=== PATIENT | male | born 1950 | race Caucasian/White ===

== ENCOUNTER → 2019-11-27 18:24 | Outpatient (CLI) | payer MEDICARE, OTHER, SELFPAY ==
[2019-11-27 19:47] LABS: Basophils # 0.1 K/mm3 (0-0.2); Basophils % 0.5 % (0.1-2.0); Eosinophils # 0.1 K/mm3 (0.0-0.4); Eosinophils % 1.2 % (0.1-12.0); Hematocrit 46.1 % (42.0-52.0); Hemoglobin 15.2 g/dL (14.1-18.0); Lymphocytes # 1.7 K/mm3 (0.7-4.5); Lymphocytes % 16.5 % (10-50); Mean Corpuscular HGB Conc 32.9 g/dL (31.8-35.4); Mean Corpuscular Hemoglobin 31.2 pg (27.0-31.2); Mean Corpuscular Volume 94.9 fl (80-94); Mean Platelet Volume 8.9 fl (7.4-10.4); Monocytes # 0.4 K/mm3 (0.1-1.0); Monocytes % 3.9 % (1.7-9.3); Neutrophils # 7.9 K/mm3 (1.8-7.8); Neutrophils % 77.9 % (37.0-80.0); Platelet Count 182 K/mm3 (142-424); Red Blood Count 4.85 M/mm3 (4.60-6.20); Red Cell Distribution Width 15.3 % (11.5-17.5); White Blood Count 10.1 K/mm3 (4.8-10.8)
[2019-11-27 19:56] LABS: Alanine Aminotransferase 20 U/L (12-78); Albumin Level 4.7 g/dl (3.5-5.0); Albumin/Globulin Ratio 1.4 (1.1-1.8); Alkaline Phosphatase 136 U/L (38-126); Anion Gap 12.5 mEq/L (5-15); Aspartate Amino Transferase 30 U/L (17-59); Bilirubin,Total 0.8 mg/dl (0.2-1.3); Blood Urea Nitrogen 15 mg/dl (9-20); Calcium 10.8 mg/dl (8.4-10.2); Carbon Dioxide 27 mmol/L (22.0-30.0); Chloride 106 mmol/L (98-107); Estimated Glomerular Filt Rate 60 ml/min (>60); GFR (African American) 73 ML/MIN (>60); Globulin 3.3 g/dL (1.3-3.2); Glucose 100 mg/dl (74-100); Potassium 4.5 mmoL/L (3.5-5.1); Sodium 141 mmol/L (136-145)
== END ==
PROVIDERS: Visit Provider Family Medicine
DX: K57.30 Diverticulosis of large intestine without perforation or abscess without bleeding (principal)
CPT/HCPCS: 80053; 85025

== ENCOUNTER → 2019-12-10 13:26 | Outpatient (CLI) | payer MEDICARE, OTHER, SELFPAY ==
--- NOTE | 2019-12-10 13:36 | CT_ITS ---
PROCEDURE: CT ABDOMEN PELVIS WO CON CLINICAL INDICATION: BLOATING BLOODY STOOLS COMPARISON: No exams were available for comparison TECHNIQUE: Axial images obtained with sagittal and coronal reformats. All CT scans at the facility use one or more dose reduction, viz: automated exposure control, ma/kV adjustment per patient size (including targeted exams where dose is matched to indication, i.e. head), or iterative reconstruction technique. FINDINGS: LOWER THORAX: Blebs are present in the lung bases with COPD and centrilobular emphysema. There is a mitral valve prosthesis present. ABDOMEN & PELVIS: Mild nonspecific thickening of the distal esophagus and GE junction. The liver, spleen, adrenal glands, pancreas, and kidneys show no acute finding. There is an exophytic cyst along the lower pole of the right kidney at 1.6 cm. No renal or ureteral calculi. There is bowel interposition between the liver and abdominal wall on the right. There has been a prior hemicolectomy with anastomosis in the right lower quadrant. The remaining sigmoid colon and rectum have an unremarkable appearance. No abdominal or pelvic mass or abnormal fluid collection apparent. There are some mildly prominent small bowel loops containing air with a few air-fluid levels. These are nonspecific. No acute bony findings are evident. IMPRESSION: Prior hemicolectomy. The bowel gas pattern is nonspecific with some mildly prominent air in fluid-filled loops of small bowel. Ileus enteritis or even partial obstruction is a consideration. CT enterography or small-bowel follow-through may provide further evaluation. Multiple unopacified bowel loops in the abdomen or pelvis which could obscure or mimic pathology. If symptoms persist, consider repeat exam with IV and oral contrast. Other nonspecific findings as detailed above Dictated by: Ronnell Gentile MD 12/11/2019 10:14 Ronnell Gentile MD in [place] 12/11/2019 10:14
== END ==
PROVIDERS: PCP Family Medicine; Visit Provider Family Medicine
DX: K92.1 Melena (principal)
CPT/HCPCS: 74176

== ENCOUNTER → 2020-02-17 07:56 | Outpatient (CLI) | payer MEDICARE, OTHER, SELFPAY ==
--- NOTE | 2020-02-17 07:57 | CT_ITS ---
PROCEDURE: CT ABDOMEN PELVIS W CON CLINICAL INDICATION: abd pain rectal bleeding bright red,,hx of colon surg [id number] for diverticulitis COMPARISON: CT CT ABDOMEN PELVIS WO CON from 12/10/2019 TECHNIQUE: IV Contrast: 75ML Isovue 370 Oral Contrast None Axial images obtained with sagittal and coronal reformats. All CT scans at the facility use one or more dose reduction, viz: automated exposure control, ma/kV adjustment per patient size (including targeted exams where dose is matched to indication, i.e. head), or iterative reconstruction technique. FINDINGS: LOWER THORAX: Paraseptal emphysematous changes are present with subpleural blebs as well central blebs in both lower lobes. There are scattered areas of scarring. Subpleural parenchymal opacity is present in the right lower lobe laterally not significantly changed. Mitral valve prosthesis is present. ABDOMEN & PELVIS: There is a small hiatal hernia. There is a subcapsular hypodensity in the right hepatic lobe at 4 mm nonspecific. There is nodular thickening involving the medial aspect of the gallbladder. This area of thickening measures approximately 14 x 5 mm. Gallbladder ultrasound suggested for further evaluation. The spleen, adrenal glands, pancreas, have an unremarkable appearance. No renal or ureteral calculi. A small cortical cyst is present along the lower pole of the right kidney and along the upper pole of the left kidney. There are few small retroperitoneal lymph nodes which are nonspecific. No intestinal obstruction or free air is evident. There has been a partial colectomy with sigmoid colon remaining. The entero colic anastomosis is patent in the right lower quadrant. No abdominal or pelvic mass or adenopathy is apparent. No evidence of diverticulitis. There is a least 1 sigmoid diverticulum. There are old bilateral rib fractures and there are degenerative changes in the thoracic and lumbar spine IMPRESSION: 1. Status post subtotal colectomy with sigmoid colon remaining with a least 1 sigmoid diverticula but no evidence of diverticulitis. 2. Nodular thickening of the medial aspect of the gallbladder. Consider ultrasound for further evaluation. 3. Other nonacute findings as described above. Dictated by: Ronnell Gentile MD 02/20/2020 06:05 Ronnell Gentile MD in [facility] 02/20/2020 06:05
== END ==
PROVIDERS: PCP Family Medicine; Visit Provider Family Medicine
DX: K62.5 Hemorrhage of anus and rectum (principal); Z87.19 Personal history of other diseases of the digestive system
CPT/HCPCS: 74177; Q9967

== ENCOUNTER → 2020-02-27 07:37 | Outpatient (CLI) | payer MEDICARE, OTHER, SELFPAY ==
--- NOTE | 2020-02-27 07:37 | US_ITS ---
PROCEDURE: US GALLBLADDER CLINICAL INDICATION: abnormal GB on CT Nodular thickening of the gallbladder on CT scan. Ultrasound suggested. COMPARISON: CT CT ABDOMEN PELVIS W CON from 02/17/2020 FINDINGS: Pancreas: Unremarkable/Not well seen Liver: Unremarkable. There is appropriate direction of blood flow within a non dilated portal vein. Right kidney: Unremarkable appearing. No hydronephrosis. Gallbladder: There is heterogeneous nodular echogenicity along the lateral aspect of the gallbladder wall corresponding to the abnormality noted on the CT scan. This area measures 1.9 by 1 cm. The remaining gallbladder has an unremarkable appearance. The gallbladder is small. No biliary dilatation. Common bile duct is normal at 4 mm. No gallstones are apparent. Cannot completely separate this from the liver at least in 1 spot. IMPRESSION: Heterogeneous nodularity along the lateral aspect of the gallbladder wall. This could be inflammatory or neoplastic. Gallbladder carcinoma is a consideration. MRI of the liver and gallbladder without and with contrast with MRCP may be of further value. Dictated by: Ronnell Gentile MD 02/27/2020 10:00 Ronnell Gentile MD in [facility] 02/27/2020 10:00
== END ==
PROVIDERS: PCP Family Medicine; Visit Provider Family Medicine
DX: R93.2 Abnormal findings on diagnostic imaging of liver and biliary tract (principal)
CPT/HCPCS: 76705

== ENCOUNTER → 2020-03-17 12:50 | Outpatient (CLI) | payer MEDICARE, OTHER, SELFPAY ==
[2020-03-17 14:21] LABS: Blood Urea Nitrogen 22 mg/dl (9-20); Estimated Glomerular Filt Rate 60 ml/min (>60); GFR (African American) 73 ML/MIN (>60)
== END ==
PROVIDERS: Visit Provider Surgery
DX: R93.2 Abnormal findings on diagnostic imaging of liver and biliary tract (principal)
CPT/HCPCS: 36415; 82565; 84520

== ENCOUNTER → 2020-03-24 08:24 | Outpatient (CLI) | payer MEDICARE, OTHER, SELFPAY ==
--- NOTE | 2020-03-24 08:24 | MR_ITS ---
PROCEDURE: MR ABDOMEN WO/W CON CLINICAL INDICATION: MRCP for Gallbladder Gallbladder lesion, abdominal pain COMPARISON: CT CT ABDOMEN PELVIS W CON from 02/17/2020 US US GALLBLADDER from 02/27/2020 TECHNIQUE: Routine multiplanar multi echo sequences are performed without and with gadolinium enhancement. FINDINGS: There is a small cyst right hepatic lobe posteriorly segment 7. There is a mild degree of motion artifact present which does obscure fine detail of the abdomen. The spleen, adrenal glands, and pancreas have an unremarkable appearance. There are bilateral renal cysts.. MRCP: No biliary dilatation apparent. No obvious common duct stones. There is considerable amount of motion artifact. The gallbladder is not well delineated on the MRCP images. There remains some focal thickening of the gallbladder wall laterally as described on the CT scan and the gallbladder ultrasound. This is better demonstrated on the CT scan and secondary to the motion artifact noted on the MRI. The tissue/liver around the gallbladder has an unremarkable appearance. IMPRESSION: 1. Persistent gallbladder wall thickening laterally. 2. Unremarkable biliary tree with no other significant anomalies evident. Dictated by: Ronnell Gentile MD 03/29/2020 12:04 Ronnell Gentile MD in [facility] 03/29/2020 12:04
== END ==
PROVIDERS: PCP Family Medicine; Visit Provider Surgery
DX: R93.2 Abnormal findings on diagnostic imaging of liver and biliary tract (principal); K76.89 Other specified diseases of liver
CPT/HCPCS: 74183; 76376; A9576

== ENCOUNTER → 2021-02-07 15:54 | Outpatient (CLI) | payer MEDICARE, OTHER, SELFPAY ==
--- NOTE | 2021-02-07 15:59 | XR_ITS ---
PROCEDURE: XR KNEE LT 4V CLINICAL INDICATION: arthritis knee COMPARISON: No exams were available for comparison FINDINGS: Minimal osteoarthritic changes are present involving the medial compartment and patellofemoral joint. No fracture or dislocation Other findings:None. IMPRESSION: Minimal osteoarthritic change medial compartment and patellofemoral joint Dictated by: Ronnell Gentile MD 02/07/2021 17:26 Ronnell Gentile MD in [place] 02/07/2021 17:26
== END ==
PROVIDERS: PCP Family Medicine; Visit Provider Family Medicine
DX: M25.562 Pain in left knee (principal)
CPT/HCPCS: 73564

== ENCOUNTER → 2022-01-24 09:04 | Outpatient (CLI) | payer MEDICARE, OTHER, SELFPAY ==
--- NOTE | 2022-01-24 09:27 | XR_ITS ---
FINAL REPORT CLINICAL HISTORY: bilateral hip pain FINDINGS: HIP BILATERAL MIN 2VS EACH HIP Five views were obtained. There is no acute fracture or dislocation. There are mild degenerative changes of the hips bilaterally. The femoral heads demonstrate a small normal smooth contour. No soft tissue abnormality is identified. IMPRESSION: Mild degenerative changes bilaterally. Reviewed, Interpreted and Dictated by Joey Miller MD Transcribed by Ruth Ann Desir Authenticated and [facility]
== END ==
PROVIDERS: PCP Family Medicine; Visit Provider Family Medicine
DX: Z95.1 Presence of aortocoronary bypass graft (principal); M25.552 Pain in left hip; M25.551 Pain in right hip
CPT/HCPCS: 73521

== ENCOUNTER 2022-06-19 22:50 | Emergency (ER) | payer MEDICARE, OTHER, SELFPAY ==
[2022-06-19 22:50] VITALS: BP 121/63; PULSE 81; RESP 16; TEMP 36.8; O2SAT 96; BMI 33.9
[2022-06-19 23:01] VITALS: BP 99/50; PULSE 81; O2SAT 95
[2022-06-19 23:28] LABS: Basophils % 0.2 % (0.1-2.0); Eosinophils # 0.1 K/mm3 (0.0-0.4); Eosinophils % 0.5 % (0.1-12.0); Hematocrit 39.6 % (42.0-52.0); Hemoglobin 12.3 g/dL (14.1-18.0); Lymphocytes # 0.9 K/mm3 (0.7-4.5); Lymphocytes % 8.2 % (10-50); Mean Corpuscular HGB Conc 31.1 g/dL (31.8-35.4); Mean Corpuscular Hemoglobin 28.6 pg (27.0-31.2); Mean Corpuscular Volume 92.1 fl (80-94); Mean Platelet Volume 8.7 fl (7.4-10.4); Monocytes # 0.7 K/mm3 (0.1-1.0); Monocytes % 6.5 % (1.7-9.3); Neutrophils # 9.1 K/mm3 (1.8-7.8); Neutrophils % 84.8 % (37.0-80.0); Platelet Count 276 K/mm3 (142-424); Red Cell Distribution Width 14.1 % (11.5-17.5); White Blood Count 10.7 K/mm3 (4.8-10.8)
[2022-06-19 23:30] VITALS: BP 98/46; PULSE 79; O2SAT 93
[2022-06-19 23:30] LABS: Chloride 103 mmol/L (98-107)
[2022-06-19 23:31] LABS: Potassium 4.2 mmoL/L (3.5-5.1); Sodium 136 mmol/L (136-145)
--- NOTE | 2022-06-19 23:32 | PC.NURSE ---
during assessment of patient it was noted that pt had a clot approx the size of the left nostril from what I could visualize of it. Notified
[2022-06-19 23:33] LABS: Alanine Aminotransferase 26 U/L (12-78); Aspartate Amino Transferase 18 U/L (17-59); Bilirubin,Total 0.5 mg/dl (0.2-1.3); Creatinine Clearance Estimated 24 mL/min (50-200); Estimated Glomerular Filt Rate 13 ml/min (>60); GFR (African American) 15 ML/MIN (>60)
[2022-06-19 23:34] LABS: Albumin Level 3.4 g/dl (3.5-5.0); Albumin/Globulin Ratio 1.1 (1.1-1.8); Alkaline Phosphatase 100 U/L (38-126); Anion Gap 20.2 mEq/L (5-15); Carbon Dioxide 17 mmol/L (22.0-30.0); Globulin 3.2 g/dL (1.3-3.2); Glucose 101 mg/dl (74-100); Total Protein,Serum 6.6 g/dl (6.3-8.2)
[2022-06-19 23:45] VITALS: BP 81/46; PULSE 85; O2SAT 95
--- NOTE | 2022-06-19 23:50 | PC.NURSE ---
Dr. Daniel notified of critical BUN, creatiine, and GFR.
[2022-06-19 23:51] LABS: Blood Urea Nitrogen 157 mg/dl (9-20)
[2022-06-20] VITALS (11 sets, daily range): BP systolic 90–127; BP diastolic 49–68; PULSE 60–98; RESP 16; TEMP 36.8; O2SAT 90–98
--- NOTE | 2022-06-20 00:01 | CT_ITS ---
PROCEDURE INFORMATION: Exam: CT Abdomen And Pelvis Without Contrast Exam date and time: 06/20/2022 12:25 AM Age: 71 years old Clinical indication: Abnormal findings; Abnormal lab test; Abnormal kidney function lab tests; Additional info: Abnormal labs TECHNIQUE: Imaging protocol: Computed tomography of the abdomen and pelvis without contrast. Radiation optimization: All CT scans at this facility use at least one of these dose optimization techniques: automated exposure control; mA and/or kV adjustment per patient size (includes targeted exams where dose is matched to clinical indication); or iterative reconstruction. REPORTING DATA: Count of CT and Cardiac NM exams in prior 12 months: This patient has received 0 known CTs and 0 known cardiac nuclear medicine studies in the 12 months prior to the current study. COMPARISON: MR ABDOMEN WO/W CON 03/24/2020 8:47 AM FINDINGS: Lungs: Emphysema with lower lobe bronchiectasis and presumed scarring in the lingula and right lower lobe similar to CT 02/17/2020. Heart: Mitral valve replacement. Diaphragm: Small-sized hiatal hernia is unchanged. Liver: Normal. No mass. Gallbladder and bile ducts: Gallbladder again appears thickened with partially contracted appearance. Pancreas: Normal. No ductal dilation. Spleen: Splenic granulomata are unchanged. Adrenal glands: Normal. No mass. Kidneys and ureters: Anterior right lower pole simple renal cyst measuring 2 cm is unchanged. No hydronephrosis or stone. Stomach and bowel: Surgical changes are seen in right lower quadrant small bowel loops. No bowel obstruction. Appendix: No evidence of appendicitis. Intraperitoneal space: Unremarkable. No free air. No significant fluid collection. Vasculature: Unremarkable. No abdominal aortic aneurysm. Lymph nodes: Unremarkable. No enlarged lymph nodes. Urinary bladder: The bladder wall is thickened with incomplete distention. Reproductive: Unremarkable as visualized. Bones/joints: Unremarkable. No acute fracture. Soft tissues: Unremarkable. IMPRESSION: 1. No renal stone or hydronephrosis. 2. Thickened bladder wall. Correlate for cystitis. 3. Contracted appearance of the gallbladder with wall thickening similar to previous imaging.
--- NOTE | 2022-06-20 00:02 | PC.NURSE ---
Dr. Daniel at bedside
--- NOTE | 2022-06-20 00:15 | PC.NURSE ---
Dr. Daniel removed clot from nose, bleeding started again, nose was suctioned and cleaned, afrin sprayed and suctioned again. Dr. Daniel then used cotton ball soaked in cocaine and placed in left nostril. No issues during this.
--- NOTE | 2022-06-20 00:17 | PC.NURSE ---
Pt over to CT, updated son on POC and explained why were obtaining CT scan.
--- NOTE | 2022-06-20 00:27 | [facility].EDEPIS ---
Discharge Plan Disposition Patient Disposition: Xfer Short-Term Hosp Chief Complaint: Epistaxis Prescriptions Prescriptions: No Action aspirin [Adult Aspirin Regimen] 81 mg tablet,delayed release (DR/EC) 81 mg PO DAILY amlodipine 5 mg Tablet 5 mg PO DAILY furosemide 40 mg tablet See Rx Instructions .ROUTE .COMPLEX Rx Instructions: TAKE 1 TABLET BY MOUTH ONCE DAILY NEEDED UNTIL EDEMA RESOLVES, THEN ONLY NEEDED carvedilol 25 mg tablet See Rx Instructions .ROUTE .COMPLEX Rx Instructions: TAKE 1 TABLET BY MOUTH TWICE DAILY. MUST TAKE WITH MEAL/FOOD. atorvastatin 20 mg tablet See Rx Instructions .ROUTE .COMPLEX Rx Instructions: Take 1 tablet by mouth daily lisinopril 20 mg tablet See Rx Instructions .ROUTE .COMPLEX Rx Instructions: Take 1 tablet by mouth twice daily hydralazine 50 mg tablet See Rx Instructions .ROUTE .COMPLEX Rx Instructions: TAKE 1 TABLET BY MOUTH THREE TIMES DAILY Referrals Follow up/Referrals: Martinez Canseco MD [Primary Care Provider] - See instructions Clinical Impressions Clinical Impression: Hemorrhage of nose, Acute renal failure (ARF) Stand Alone Forms Stand Alone Forms: Transfer Record - ED Instructions Patient Instructions: DI for Nosebleed Discharge ED Provider: María (ED)Ernesto Epistaxis HPI General Chief complaint: Epistaxis Stated complaint: Nose bleed Time Seen by Provider: 06/20/22 00:27 Mode of Arrival: EMS Source of Information: Patient, Relative, EMS and Medical Record Limitations: No Limitations Description of Symptoms (Recalled from ER Triage Doc. by RN): Pt advises his nose started bleeding around 9pm and they were unable to get the bleeding to stop. Mostly bleeding from the left nostril, denies any other symptoms, and advises he does not get nose bleeds. No hx of blood thinner only baby ASA History of Present Illness HPI Narrative: pt with nasal bleeding lt nares tonight at about 2100 - no hx of trauma and on asa complaint: epistaxis Location: left nostril Onset (ago): hour(s) Duration: constant Context: aspirin use Associated symptoms: fever and headache Treatment prior to arrival: nose pinching and head leaned forward Related Data Home Medications Medication Instructions Recorded Confirmed aspirin 81 mg tablet,delayed 81 mg PO DAILY Blood thinner 11/27/19 06/19/22 release (Adult Aspirin Regimen) amlodipine 5 mg tablet 5 mg PO DAILY blood pressure 06/19/22 06/19/22 atorvastatin 20 mg tablet See Rx Instructions .Route 06/19/22 06/19/22 .COMPLEX Cholesterol carvedilol 25 mg tablet See Rx Instructions .Route 06/19/22 06/19/22 .COMPLEX beta kye furosemide 40 mg tablet See Rx Instructions .Route 06/19/22 06/19/22 .COMPLEX Fluid hydralazine 50 mg tablet See Rx Instructions .Route 06/19/22 06/19/22 .COMPLEX blood pressure lisinopril 20 mg tablet See Rx Instructions .Route 06/19/22 06/19/22 .COMPLEX blood pressure Allergies Allergy/AdvReac Type Severity Reaction Status Date / Time No Known Allergies Allergy Verified 06/19/22 23:08 [facility] Disclaimer: The information contained in this section may have been updated after the patient was seen, as this information can be updated by other users. Social History Smoking Status: Never smoker alcohol intake: current substance use type: denies use current occupational status: retired Travel in the last 8 weeks: None household members: none housing: house ROS Obtained: Yes All systems reviewed & no additional complaints except as documented Physical Exam General General appearance: alert Head Head exam: normocephalic Eye Eye exam: Present PERRL and EOMI ENT ENT exam: Present other (brisk bleeding lt nares felt to be post - afrin andcocaine and clot removed and used epistat 5 post and 10 ant baloon usinf speculum
--- NOTE | 2022-06-20 00:50 | PC.NURSE ---
Sent med info release to [facility] to receive lab reports
--- NOTE | 2022-06-20 01:20 | PC.NURSE ---
Dr. Daniel and staff at bedside to reassess epitaxsis. Placing Epistat to nares
--- NOTE | 2022-06-20 01:37 | PC.NURSE ---
At bedside with Dr. Daniel, nose suctioned multiple times again. Epistat inserted into left nasal passage 10ml side filled with 5ml of NS and 30ml side filled with 10ml NS. Pt was able to tolerate procedure well. After examining suction canister and water used for suctioning, it was estimated that patient had loss approx. 150ml of blood while in the ED. Pt was cleaned up and gown was changed, fresh warm linens provided. Pt medicated with pain medication and nausea medicine. Placed in POC and lights dimmed, no other needs at this time.
--- NOTE | 2022-06-20 01:43 | PC.NURSE ---
Dr. Daniel speaking with Dr. Velasquez with [facility]
--- NOTE | 2022-06-20 01:49 | PC.NURSE ---
Dr. Gonzalez accepted pt to ED.
[2022-06-20 01:50] LABS: INR 1.06 (0.9-1.1); Prothrombin Time 11.4 seconds (10.1-12.5)
--- NOTE | 2022-06-20 02:23 | PC.NURSE ---
Notified [facility] of transfer
--- NOTE | 2022-06-20 03:07 | PC.NURSE ---
Gave report to EMS and calling report to [facility] at this time
--- NOTE | 2022-06-20 03:15 | PC.NURSE ---
Gave report to Charge nurse Wai at ED
== END 2022-06-20 03:21 | disposition short-term general hospital (02) ==
PROVIDERS: Emergency Provider Emergency Medicine; PCP Family Medicine
DX: R04.0 Epistaxis (principal)
CPT/HCPCS: 30901; 74176; 80053; 85025; 85610; 99285; J2405

== ENCOUNTER → 2022-09-11 23:18 | Outpatient (CLI) | payer MEDICARE, OTHER, SELFPAY ==
[2022-09-11 19:36] LABS: Basophils # 0.1 K/mm3 (0-0.2); Basophils % 0.6 % (0.1-2.0); Eosinophils # 0.6 K/mm3 (0.0-0.4); Eosinophils % 8.5 % (0.1-12.0); Hematocrit 43.8 % (42.0-52.0); Hemoglobin 13.4 g/dL (14.1-18.0); Lymphocytes # 1.6 K/mm3 (0.7-4.5); Lymphocytes % 21.7 % (10-50); Mean Corpuscular HGB Conc 30.6 g/dL (31.8-35.4); Mean Corpuscular Hemoglobin 29.1 pg (27.0-31.2); Mean Corpuscular Volume 94.9 fl (80-94); Mean Platelet Volume 9.2 fl (7.4-10.4); Monocytes # 0.6 K/mm3 (0.1-1.0); Monocytes % 8.5 % (1.7-9.3); Neutrophils # 4.6 K/mm3 (1.8-7.8); Neutrophils % 60.8 % (37.0-80.0); Platelet Count 243 K/mm3 (142-424); Red Blood Count 4.62 M/mm3 (4.60-6.20); Red Cell Distribution Width 17.6 % (11.5-17.5); White Blood Count 7.6 K/mm3 (4.8-10.8)
[2022-09-11 19:46] LABS: Chloride 105 mmol/L (98-107); Potassium 4.3 mmoL/L (3.5-5.1); Sodium 142 mmol/L (136-145)
[2022-09-11 19:49] LABS: Alanine Aminotransferase 20 U/L (12-78); Albumin Level 4.2 g/dl (3.5-5.0); Albumin/Globulin Ratio 1.4 (1.1-1.8); Alkaline Phosphatase 125 U/L (38-126); Anion Gap 15.3 mEq/L (5-15); Aspartate Amino Transferase 23 U/L (17-59); Blood Urea Nitrogen 28 mg/dl (9-20); Calcium 10.2 mg/dl (8.4-10.2); Carbon Dioxide 26 mmol/L (22.0-30.0); Estimated Glomerular Filt Rate 50 ml/min (>60); GFR (African American) 61 ML/MIN (>60); Glucose 101 mg/dl (74-100); Total Protein,Serum 7.2 g/dl (6.3-8.2)
[2022-09-11 19:58] LABS: Bilirubin,Total 0.1 mg/dl (0.2-1.3)
== END ==
PROVIDERS: PCP Family Medicine; Visit Provider Family Medicine
DX: E78.5 Hyperlipidemia, unspecified (principal); Z87.19 Personal history of other diseases of the digestive system; R30.0 Dysuria
CPT/HCPCS: 80053; 85025; 87086

== ENCOUNTER → 2022-10-11 23:43 | Outpatient (CLI) | payer MEDICARE, OTHER, SELFPAY ==
[2022-10-11 18:33] LABS: Alanine Aminotransferase 23 U/L (12-78); Albumin/Globulin Ratio 1.4 (1.1-1.8); Alkaline Phosphatase 102 U/L (38-126); Anion Gap 12.4 mEq/L (5-15); Aspartate Amino Transferase 26 U/L (17-59); Bilirubin,Total 0.3 mg/dl (0.2-1.3); Blood Urea Nitrogen 21 mg/dl (9-20); Calcium 10.3 mg/dl (8.4-10.2); Carbon Dioxide 30 mmol/L (22.0-30.0); Chloride 106 mmol/L (98-107); Chol/HDL Ratio 1.5 (1-3.5); Cholesterol 140 mg/dl (140-200); Estimated Glomerular Filt Rate 60 ml/min (>60); GFR (African American) 72 ML/MIN (>60); Globulin 2.9 g/dL (1.3-3.2); Glucose 87 mg/dl (74-100); HDL Cholesterol 92 mg/dl (40-60); Potassium 4.4 mmoL/L (3.5-5.1); Sodium 144 mmol/L (136-145); Total Protein,Serum 6.9 g/dl (6.3-8.2); Triglycerides 63 mg/dl (30-150); VLDL Cholesterol 13 mg/dL (0-40)
[2022-10-11 18:37] LABS: Basophils % 0.4 % (0.1-2.0); Eosinophils # 0.6 K/mm3 (0.0-0.4); Eosinophils % 6.9 % (0.1-12.0); Hematocrit 46.9 % (42.0-52.0); Lymphocytes # 1.5 K/mm3 (0.7-4.5); Lymphocytes % 17.4 % (10-50); Mean Corpuscular HGB Conc 29.8 g/dL (31.8-35.4); Mean Corpuscular Hemoglobin 27.8 pg (27.0-31.2); Mean Corpuscular Volume 93.2 fl (80-94); Mean Platelet Volume 9.2 fl (7.4-10.4); Monocytes # 0.8 K/mm3 (0.1-1.0); Monocytes % 9.6 % (1.7-9.3); Neutrophils # 5.5 K/mm3 (1.8-7.8); Neutrophils % 65.6 % (37.0-80.0); Platelet Count 202 K/mm3 (142-424); Red Blood Count 5.03 M/mm3 (4.60-6.20); Red Cell Distribution Width 16.3 % (11.5-17.5); White Blood Count 8.4 K/mm3 (4.8-10.8)
[2022-10-11 18:44] LABS: Direct LDL Cholesterol 45.64 mg/dL (100-129)
[2022-10-11 19:04] LABS: Thyroid Stimulating Hormone 1.31 uIU/mL (0.465-4.68)
== END ==
PROVIDERS: PCP Family Medicine; Visit Provider Family Medicine
DX: E78.5 Hyperlipidemia, unspecified (principal); I10 Essential (primary) hypertension; Z87.19 Personal history of other diseases of the digestive system; Z79.899 Other long term (current) drug therapy
CPT/HCPCS: 80053; 80061; 84443; 85025

== ENCOUNTER → 2023-01-10 07:11 | Outpatient (CLI) | payer MEDICARE, OTHER, SELFPAY ==
[2023-01-10 17:57] LABS: Basophils % 0.5 % (0.1-2.0); Eosinophils # 0.4 K/mm3 (0.0-0.4); Eosinophils % 5.3 % (0.1-12.0); Hematocrit 40.7 % (42.0-52.0); Hemoglobin 13.2 g/dL (14.1-18.0); Lymphocytes # 1.1 K/mm3 (0.7-4.5); Lymphocytes % 16.2 % (10-50); Mean Corpuscular HGB Conc 32.5 g/dL (31.8-35.4); Mean Corpuscular Hemoglobin 30.5 pg (27.0-31.2); Mean Corpuscular Volume 93.8 fl (80-94); Mean Platelet Volume 9.1 fl (7.4-10.4); Monocytes # 0.5 K/mm3 (0.1-1.0); Monocytes % 6.8 % (1.7-9.3); Neutrophils # 4.9 K/mm3 (1.8-7.8); Neutrophils % 71.2 % (37.0-80.0); Platelet Count 233 K/mm3 (142-424); Red Blood Count 4.34 M/mm3 (4.60-6.20); Red Cell Distribution Width 15.8 % (11.5-17.5); White Blood Count 6.8 K/mm3 (4.8-10.8)
[2023-01-10 18:10] LABS: Alanine Aminotransferase 24 U/L (12-78); Albumin Level 3.6 g/dl (3.5-5.0); Albumin/Globulin Ratio 1.3 (1.1-1.8); Alkaline Phosphatase 72 U/L (38-126); Anion Gap 13.3 mEq/L (5-15); Aspartate Amino Transferase 25 U/L (17-59); Bilirubin,Total 0.3 mg/dl (0.2-1.3); Blood Urea Nitrogen 24 mg/dl (9-20); Carbon Dioxide 26 mmol/L (22.0-30.0); Chloride 104 mmol/L (98-107); Estimated Glomerular Filt Rate 66 ml/min (>60); GFR (African American) 80 ML/MIN (>60); Globulin 2.8 g/dL (1.3-3.2); Glucose 101 mg/dl (74-100); Potassium 5.3 mmoL/L (3.5-5.1); Sodium 138 mmol/L (136-145); Total Protein,Serum 6.4 g/dl (6.3-8.2)
[2023-01-10 18:40] LABS: Prostate Specific Ag Screen 3.4 ng/ml (0.0-4.0)
== END ==
PROVIDERS: PCP Family Medicine; Visit Provider Family Medicine
DX: Z12.5 Encounter for screening for malignant neoplasm of prostate (principal); D32.9 Benign neoplasm of meninges, unspecified; E78.5 Hyperlipidemia, unspecified
CPT/HCPCS: 80053; 85025; G0103

== ENCOUNTER 2023-04-11 20:50 | Outpatient (CLI) | payer MEDICARE, OTHER, SELFPAY ==
[2023-04-11 19:54] LABS: Chloride 111 mmol/L (98-107); Potassium 5.1 mmoL/L (3.5-5.1); Sodium 145 mmol/L (136-145)
[2023-04-11 19:56] LABS: Alanine Aminotransferase 19 U/L (12-78); Aspartate Amino Transferase 22 U/L (17-59); Blood Urea Nitrogen 27 mg/dl (9-20); Estimated Glomerular Filt Rate 50 ml/min (>60); GFR (African American) 61 ML/MIN (>60)
[2023-04-11 19:57] LABS: Albumin/Globulin Ratio 1.5 (1.1-1.8); Alkaline Phosphatase 92 U/L (38-126); Anion Gap 11.1 mEq/L (5-15); Bilirubin,Total 0.3 mg/dl (0.2-1.3); Calcium 10.2 mg/dl (8.4-10.2); Carbon Dioxide 28 mmol/L (22.0-30.0); Chol/HDL Ratio 2.3 (1-3.5); Cholesterol 154 mg/dl (140-200); Globulin 2.7 g/dL (1.3-3.2); Glucose 98 mg/dl (74-100); HDL Cholesterol 68 mg/dl (40-60); Total Protein,Serum 6.7 g/dl (6.3-8.2); Triglycerides 65 mg/dl (30-150); VLDL Cholesterol 13 mg/dL (0-40)
[2023-04-11 20:08] LABS: Direct LDL Cholesterol 70.53 mg/dL (100-129)
== END 2023-04-11 23:59 ==
LOC: LAB.DROPOF 20:51
PROVIDERS: PCP Family Medicine; Visit Provider Family Medicine
DX: E78.5 Hyperlipidemia, unspecified (principal)
CPT/HCPCS: 80053; 80061

== ENCOUNTER 2023-07-19 18:00 | Outpatient (CLI) | payer MEDICARE, OTHER, SELFPAY ==
[2023-07-19 18:19] LABS: Alanine Aminotransferase 20 U/L (12-78); Albumin Level 4.2 g/dl (3.5-5.0); Albumin/Globulin Ratio 1.5 (1.1-1.8); Alkaline Phosphatase 89 U/L (38-126); Anion Gap 7.7 mEq/L (5-15); Aspartate Amino Transferase 24 U/L (17-59); Bilirubin,Total 0.7 mg/dl (0.2-1.3); Blood Urea Nitrogen 24 mg/dl (9-20); Calcium 10.4 mg/dl (8.4-10.2); Carbon Dioxide 30 mmol/L (22.0-30.0); Chloride 109 mmol/L (98-107); Cholesterol 165 mg/dl (140-200); Estimated Glomerular Filt Rate 43 ml/min (>60); GFR (African American) 52 ML/MIN (>60); Globulin 2.8 g/dL (1.3-3.2); Glucose 98 mg/dl (74-100); Potassium 4.7 mmoL/L (3.5-5.1); Sodium 142 mmol/L (136-145); Triglycerides 49 mg/dl (30-150); VLDL Cholesterol 10 mg/dL (0-40)
[2023-07-19 18:30] LABS: Direct LDL Cholesterol 58.61 mg/dL (100-129)
[2023-07-19 18:45] LABS: Chol/HDL Ratio 1.5 (1-3.5); HDL Cholesterol 111 mg/dl (40-60)
== END 2023-07-19 23:59 | disposition home or self-care (01) ==
LOC: LAB.DROPOF 07-20 13:41
PROVIDERS: PCP Family Medicine; Visit Provider Family Medicine
DX: I10 Essential (primary) hypertension (principal); E78.5 Hyperlipidemia, unspecified; Z79.899 Other long term (current) drug therapy
CPT/HCPCS: 80053; 80061

== ENCOUNTER 2024-01-24 14:47 | Outpatient (CLI) | payer MEDICARE, OTHER, SELFPAY ==
[2024-01-24 18:24] LABS: Alanine Aminotransferase 22 U/L (12-78); Albumin Level 4.1 g/dl (3.5-5.0); Albumin/Globulin Ratio 1.6 (1.1-1.8); Alkaline Phosphatase 79 U/L (38-126); Anion Gap 11.5 mEq/L (5-15); Aspartate Amino Transferase 24 U/L (17-59); Bilirubin,Total 0.6 mg/dl (0.2-1.3); Blood Urea Nitrogen 22 mg/dl (9-20); Calcium 10.3 mg/dl (8.4-10.2); Carbon Dioxide 27 mmol/L (22.0-30.0); Chloride 103 mmol/L (98-107); Estimated Glomerular Filt Rate 60 ml/min (>60); GFR (African American) 72 ML/MIN (>60); Globulin 2.6 g/dL (1.3-3.2); Glucose 104 mg/dl (74-100); Potassium 4.5 mmoL/L (3.5-5.1); Sodium 137 mmol/L (136-145); Total Protein,Serum 6.7 g/dl (6.3-8.2)
[2024-01-24 18:54] LABS: Prostate Specific Ag Screen 1.6 ng/ml (0.0-4.0)
== END 2024-01-24 23:59 | disposition home or self-care (01) ==
LOC: LAB.DROPOF 01-25 08:26
PROVIDERS: PCP Family Medicine; Visit Provider Family Medicine
DX: I10 Essential (primary) hypertension (principal); Z12.5 Encounter for screening for malignant neoplasm of prostate
CPT/HCPCS: 80053; G0103

== ENCOUNTER 2024-08-13 09:28 | Outpatient (CLI) | payer MEDICARE, OTHER, SELFPAY ==
[2024-08-13 19:16] LABS: Basophils % 0.7 % (0.1-2.0); Eosinophils # 0.3 Kmm3 (0.0-0.4); Eosinophils % 4.8 % (0.1-12.0); Hematocrit 44.2 % (42.0-52.0); Hemoglobin 13.2 g/dL (14.1-18.0); Immature Granulocytes # 0.01 10^3uL; Immature Granulocytes % 0.2 %; Lymphocytes # 0.6 K/mm3 (0.7-4.5); Lymphocytes % 11.1 % (10-50); Mean Corpuscular HGB Conc 29.9 g/dL (31.8-35.4); Mean Corpuscular Hemoglobin 27.7 pg (27.0-31.2); Mean Corpuscular Volume 92.7 fl (80-94); Mean Platelet Volume 10.1 fl (7.4-10.4); Monocytes # 0.7 K/mm3 (0.1-1.0); Monocytes % 13.3 % (1.7-9.3); Neutrophils # 3.9 K/mm3 (1.8-7.8); Neutrophils % 69.9 % (37.0-80.0); Nucleated Red Blood Cells # 0 10^3/uL; Nucleated Red Blood Cells % 0 %; Platelet Count 191 K/mm3 (142-424); Red Blood Count 4.77 M/mm3 (4.60-6.20); Red Cell Distribution Width 16.5 % (11.5-17.5); Red Cell Distribution Width-SD 56.1 fL; White Blood Count 5.6 K/mm3 (4.8-10.8)
[2024-08-13 19:40] LABS: Alanine Aminotransferase 18 U/L (12-78); Albumin Level 4.1 g/dl (3.5-5.0); Albumin/Globulin Ratio 1.6 (1.1-1.8); Alkaline Phosphatase 76 U/L (38-126); Anion Gap 10.8 mEq/L (5-15); Aspartate Amino Transferase 22 U/L (17-59); Bilirubin,Total 0.6 mg/dl (0.2-1.3); Blood Urea Nitrogen 20 mg/dl (9-20); Calcium 10.1 mg/dl (8.4-10.2); Carbon Dioxide 28 mmol/L (22.0-30.0); Chloride 106 mmol/L (98-107); Chol/HDL Ratio 1.5 (1-3.5); Cholesterol 143 mg/dl (140-200); Estimated Glomerular Filt Rate 54 ml/min (>60); GFR (African American) 66 ML/MIN (>60); Globulin 2.5 g/dL (1.3-3.2); Glucose 93 mg/dl (74-100); HDL Cholesterol 94 mg/dl (40-60); Potassium 4.8 mmoL/L (3.5-5.1); Sodium 140 mmol/L (136-145); Total Protein,Serum 6.6 g/dl (6.3-8.2); Triglycerides 41 mg/dl (30-150); VLDL Cholesterol 8 mg/dL (0-40)
[2024-08-13 19:52] LABS: Direct LDL Cholesterol 45.58 mg/dL (100-129)
[2024-08-13 20:10] LABS: Thyroid Stimulating Hormone 1.27 uIU/mL (0.465-4.68)
[2024-08-13 20:21] LABS: HIV Combo NEGATIVE (Negative)
[2024-08-13 21:36] LABS: Hepatitis C Ab Qual. W/ RFX NEGATIVE (Negative)
== END 2024-08-13 23:59 | disposition home or self-care (01) ==
LOC: LAB.DROPOF 08-14 12:59
PROVIDERS: PCP Family Medicine; Visit Provider Family Medicine
DX: N17.9 Acute kidney failure, unspecified (principal); I10 Essential (primary) hypertension
CPT/HCPCS: 80053; 80061; 84443; 85025; 86803; 87389

== ENCOUNTER 2024-09-15 10:57 | Outpatient (CLI) | payer MEDICARE, OTHER, SELFPAY ==
[2024-09-15 19:02] LABS: Basophils % 0.5 % (0.1-2.0); Eosinophils # 0.3 Kmm3 (0.0-0.4); Eosinophils % 5.3 % (0.1-12.0); Hematocrit 42.8 % (42.0-52.0); Immature Granulocytes # 0.02 10^3uL; Immature Granulocytes % 0.4 %; Lymphocytes # 0.7 K/mm3 (0.7-4.5); Lymphocytes % 13.2 % (10-50); Mean Corpuscular HGB Conc 30.4 g/dL (31.8-35.4); Mean Corpuscular Hemoglobin 27.8 pg (27.0-31.2); Mean Corpuscular Volume 91.5 fl (80-94); Mean Platelet Volume 10.6 fl (7.4-10.4); Monocytes # 0.7 K/mm3 (0.1-1.0); Monocytes % 12.2 % (1.7-9.3); Neutrophils # 3.8 K/mm3 (1.8-7.8); Neutrophils % 68.4 % (37.0-80.0); Nucleated Red Blood Cells # 0 10^3/uL; Nucleated Red Blood Cells % 0 %; Platelet Count 189 K/mm3 (142-424); Red Blood Count 4.68 M/mm3 (4.60-6.20); Red Cell Distribution Width 16.3 % (11.5-17.5); White Blood Count 5.5 K/mm3 (4.8-10.8)
[2024-09-15 19:51] LABS: Albumin Level 4.3 g/dl (3.5-5.0); Chloride 101 mmol/L (98-107); Sodium 139 mmol/L (136-145)
[2024-09-15 19:52] LABS: Potassium 4.3 mmoL/L (3.5-5.1)
[2024-09-15 19:54] LABS: Alanine Aminotransferase 17 U/L (12-78); Anion Gap 13.3 mEq/L (5-15); Aspartate Amino Transferase 23 U/L (17-59); Bilirubin,Total 0.5 mg/dl (0.2-1.3); Blood Urea Nitrogen 19 mg/dl (9-20); Carbon Dioxide 29 mmol/L (22.0-30.0); Estimated Glomerular Filt Rate 46 ml/min (>60); GFR (African American) 56 ML/MIN (>60)
[2024-09-15 19:55] LABS: Albumin/Globulin Ratio 1.6 (1.1-1.8); Alkaline Phosphatase 97 U/L (38-126); Calcium 9.9 mg/dl (8.4-10.2); Globulin 2.7 g/dL (1.3-3.2); Glucose 122 mg/dl (74-100)
[2024-09-15 20:03] LABS: NT Pro Brain Natriuretic Pep. 408 pg/mL (0-125)
--- OUTSIDE RECORDS SUMMARY | 2024-09-17 11:00 | XMS_ITS | Clinical Summary ---
Author Organization [facility] Address [address] [place] [address] Phone Care Team Providers Care Sausage Mixer Name Role Phone Apolinar Aldana MD Primary Care Provider [phone] Allergies No known active allergies Medications atorvastatin (LIPITOR) 20 mg Oral TabletIndication s:Coronary artery disease involving coronary bypass graft of [place] heart without angina pectoris Take 1 Tab by mouth nightly. 30 Tab 09/19/2018 Active aspirin 81 mg Oral Tablet, Chewable Take by mouth daily. Active amLODIPine (NORVASC) 5 mg Oral Tablet Take 1 Tablet by mouth daily. 30 Tablet 2 07/26/2022 Active Active Problems Problem Noted Date Diagnosed Date Severe sepsis with septic shock (CODE) Septic shock 07/16/2022 LIZZETTE (acute kidney injury) 07/16/2022 ABLA (acute blood loss anemia) 07/16/2022 Meningioma 07/16/2022 Overview (07/16/2022): Seen on CT 06/19/2022 Coronary artery disease invo lving coronary bypass graft of [place] heart without angina pectoris 07/13/2022 Assessment & Plan (07/13/2022 10:06 AM EDT): Noted from previous history. No acute complaints today. Essential hypertension 07/13/2022 CKD (chronic kidney disease) stage 3, GFR 30-59 ml/min 07/13/2022 Overview (07/13/2022): Deputy Brand Inspector - Dr. Augusto Frederick [phone] Assessment & Plan (07/13/2022 10:03 AM EDT): Recent LIZZETTE Last cr 1.31 (peaked at 4 +) Unclear cause. Possibly had partially treated UTI at the time. Surgical History Surgery Date Site/Laterality Comments COLON SURGERY Part of colon removed Medical History Medical History Date Comments Hypertension Social History Tobacco Use Types Packs/Day Years Used Date Smoking Tobacco: Former Cigarettes Smokeless Tobacco: Never Tobacco Cessation:Counseling Given: Not Answered Alcohol Use Standard Drinks/Week Comments Yes 0 (1 standard drink = 0.6 oz pur e alcohol) occ PHQ-2 Answer Date Recorded PHQ-2 Total Score 0 09/22/2022 Sex and Gender Information Value Date Recorded Sex Assigned at Not on file Legal Sex Male 3:53 PM EDT Gender Identity Not on file Sexual Orientation Not on file Obstetrics History Last Filed Vital Signs Vital Sign Reading Time Taken Comments Blood Pressure 150/100 09/22/2022 8:39 AM EDT Pulse 92 09/22/2022 8:39 AM EDT Temperature 36.9 C (98.5 F) 09/22/2022 8:39 AM EDT Respiratory Rate 18 09/22/2022 8:39 AM EDT Oxygen Saturation 97% 09/22/2022 8:39 AM EDT Inhaled Oxygen Concentration - - Weight 105.7 kg (233 lb) 09/22/2022 8:39 AM EDT Height 185.4 cm (6' 1 ) 09/22/2022 8:39 AM EDT Body Mass Index 30.74 09/22/2022 8:39 AM EDT Plan of Treatment Health Maintenance Due Date Last Done Comments Hepatitis C Screening 1970 Colonoscopy 1997 FIT 1997 Sigmoidoscopy 1997 Virtual Colonography 1997 AAA Screening 2017 Pneumococcal Vaccine 50+ (2 of 2 - PCV) 02/16/2021 02/17/2020 Wellness Exam Medicare 09/23/2023 09/22/2022 COVID-19 Vaccine ( season) 2023 04/07/2022, 07/20/2021, 01/21/2021, Additional history exists Influenza Vaccine (Season Ended) 2024 12/29/2021, 01/06/2021, 02/17/2020 Cologuard 09/27/2025 09/27/2022, 09/27/2022 Colon Cancer Screening 09/27/2025 DTaP/TDaP/Td (2 - Td or Tdap) 09/18/2026 09/18/2016, 05/21/1996 Zoster Completed 09/04/2022, 04/07/2022 Hepatitis B Vaccine Aged Out No longe r eligible based on patient's age to complete this topic Meningococcal B Vaccine Aged Out No l onger eligible based on patient's age to complete this topic Goals Goal Patient Goal Type Associated Problems Recent Progress Patient-Stated? Author Blood Pressure < 140/90 Blood Pressure 150/100(09/22 8:39 AM EDT) No Apolinar Aldana MD Maintain a healthy diet, exercise regularly and maintain an ideal body weight General No Jaya, Andrés R, RMA Stay Tobacco Free Lifestyle No Mai De APRN Procedures Procedure Name Priority Date/Time Associated Diagnosis Comments COLOGUARD Routine 09/27/2022 2:15 PM EDT Screening for colon cancer from Last 3 Months or Most Recently Relevant to Health Maintenance Results * COLOGUARD (09/27/2022 2:15 PM EDT) Pathologist [facility] COLOGUARD CLINICAL REPORT Negative Negative [facility] Comment: NEGATIVE TEST RESULT. A negative Cologuard result indicates a low likelihood that a colorectal cancer (CRC) or advanced adenoma (adenomatous polyps with more advanced pre-malignant features) is present. The chance that a person with a negative Cologuard test has a colorectal cancer is less than 1 in 1500 (negative predictive value >99.9%) or has an advanced adenoma is less than 5.3% (negative predictive value 94.7%). These data are based on a prospective cross-sectional study of 10,000 individuals at average risk for colorectal cancer who were screened with both Cologuard and colonoscopy. (Bakari Álvarez, N Engl J Med 2014;370(14):1494-2588) The normal value (reference range) for this assay is negative. COLOGUARD RE-SCREENING RECOMMENDATION: Periodic colorectal cancer screening is an important part of preventive healthcare for asymptomatic individuals at average risk for colorectal cancer. Following a negative Cologuard result, the [place] [employer] Society and U.S. Multi-Society Task Force screening guidelines recommend a Cologuard re-screening interval of 3 years. References: [place] [employer] Guideline for Colorectal Cancer Screening: https://www.cancer.org/cancer/xboxq-fwomxp-gmcyvu/gmtoepsts-gshgveihe-qikjupi/ac s-rec ommendations.html.; Nelson DK, Whitley MONTILLA, Hermelindo MarrK, Colorectal Cancer Screening: Recommendations for Physicians and Patients from the U.S. Multi-Society Task Force on Colorectal Cancer Screening , Am J Gastroenterology 2017; 112:1161-0907. TEST DESCRIPTION: Composite algorithmic analysis of stool DNA-biomarkers with hemoglobin immunoassay. Quantitative values of individual biomarkers are not reportable and are not associated with individual biomarker result reference ranges. Cologuard is intended for colorectal cancer screening of adults of either sex, 45 years or older, who are at average-risk for colorectal cancer (CRC). Cologuard has been approved for use by the U.S. FDA. The performance of Cologuard was established in a cross sectional study of average-risk adults aged 50-84. Cologuard performance in patients ages 45 to 49 years was estimated by sub-group analysis of near-age groups. Colonoscopies performed for a positive result may find as the most clinically significant lesion: colorectal cancer [4.0%], advanced adenoma (including sessile serrated polyps greater than or equal to 1cm diameter) [20%] or non- advanced adenoma [31%]; or no colorectal neoplasia [45%]. These estimates are derived from a prospective cross-sectional screening study of 10,000 individuals at average risk for colorectal cancer who were screened with both Cologuard and colonoscopy. (Bakari Álvarez, N Engl J Med 2014;370(14):0158-7688.) Cologuard may produce a false negative or false positive result (no colorectal cancer or precancerous polyp present at colonoscopy follow up). A negative Cologuard test result does not guarantee the absence of CRC or advanced adenoma (pre-cancer). The current Cologuard screening interval is every 3 years. ([place] [employer] Society and U.S. Multi-Society Task Force). Cologuard performance data in a 10,000 patient pivotal study using colonoscopy as the reference method can be accessed at the following location: www.[employer]/results. Additional description of the Cologuard test process, warnings and precautions can be found at www.cologuard.com. 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 07/16/2022 07/16/2022 Insurance [place]ARE [place] [facility] MEDICARE [place] PART [facility] AND B [facility] Advance Directives For more information, please contact: [phone] * Full Code (Latest Code Status on File) Date Activated Date Inactivated Comments 07/19/2022 3:28 PM 07/25/2022 9:44 PM * Full Code Date Activated Date Inactivated Comments 07/16/2022 10:34 PM 07/17/2022 9:07 PM Care Teams Sausage Mixer Relationship Specialty Start Date End Date Apolinar [place] [address] [place] [address] PCP - General Internal Medicine 07/13/22
--- OUTSIDE RECORDS SUMMARY | 2024-09-17 11:00 | XMS_ITS | Clinical Summary ---
Author Organization [facility] Address [address] [place] [address] Care Team Providers Care Corrugator Helper Name Role Phone Ernesto Daniel MD Primary Care Provider [phone] Allergies No known active allergies Medications aspirin 81 MG EC tablet Take 81 mg by mouth 1 (one) time each day. Active furosemide (Lasix) 40 MG tablet Take 40 mg by mouth 1 (one) time each day. Active carvedilol (Coreg) 25 MG tablet Take by mouth 2 (two) times a day with meals. Active atorvastatin (Lipitor) 20 MG tablet Take 20 mg by mouth 1 (one) time each day. Active lisinopril 20 MG tablet Take 20 mg by mouth 1 (one) time each day. Active oxymetazoline (Afrin) 0.05 % nasal spray Administer 2 sprays into each nostril 3 (three) times a day for 1 day. Do not use for more than 3 days. 30 mL Active Active Problems Problem Noted Date Diagnosed Date Acute kidney injury 06/20/2022 Acute prostatitis 06/20/2022 High anion gap metabolic acidosis 06/20/2022 Epistaxis 06/20/2022 Essential hypertension 06/20/2022 Mixed hyperlipidemia 06/20/2022 Coronary artery disease invo lving [place] coronary artery of [place] heart without angina pectoris 06/20/2022 Obesity (BMI 30.0-34.9) 06/20/2022 Family History Medical History Relation Name Comments Coronary artery disease Neg Hx Kidney failure Neg Hx Social History Tobacco Use Types Packs/Day Years Used Date Smoking Tobacco: Never Tobacco Cessation:Counseling Given: Not Answered Alcohol Use Standard Drinks/Week Comments Never 0 (1 standard drink = 0.6 oz pur e alcohol) CAGE ASSESSMENT Answer Date Recorded Cage unable to access Not on file 06/20/2022 Cage max number of drinks Not on file 2022 Cage Beverages a week Not on file 06/20/2022 Have you ever felt you should CUT down on your d rinking? 0 06/20/2022 Have you been ANNOYED by people criticizing your drinking? 0 06/20/2022 Have you felt GUILTY about your drinking? 0 06/20/2022 Have you had a drink first t rola in the morning (EYE-PLUG OVERWRAP MACHINE TENDER) to steady your nerves or to get rid of a hangover? 0 06/20/2022 CAGE Questionnaire Score 0 023 Sex and Gender Information Value Date Recorded Sex Assigned at Not on file Legal Sex Male 1:40 AM EDT Gender Identity Not on file Sexual Orientation Not on file Last Filed Vital Signs Vital Sign Reading Time Taken Comments Blood Pressure 165/81 06/26/2022 3:07 AM EDT Pulse 90 06/26/2022 3:07 AM EDT Temperature 36.7 C (98.1 F) 06/26/2022 3:11 AM EDT Respiratory Rate 20 06/26/2022 1:00 AM EDT Oxygen Saturation 95% 06/26/2022 3:07 AM EDT Inhaled Oxygen Concentration - - Weight 111 kg (243 lb 12.8 oz) 06/21/2022 10:00 AM EDT Height 182.9 cm (6' 0.01 ) 06/21/2022 10:00 AM E DT Body Mass Index 33.06 06/21/2022 10:00 AM EDT Plan of Treatment Health Maintenance Due Date Last Done Comments [facility]-Depression Screening 1950 [facility]-Hepatitis C Screening 1950 [facility]-Medicare Annual Wellness (AWV) 1950 [facility]-Infant/Child/Adol SDOH Screenings 1950 [facility]-Obesity Intervention 1958 [facility]- SDOH Screenings 1970 [facility]-Adult SDOH Screenings 1970 CT Colonography 1997 Colonoscopy 1997 FIT-DNA 1997 FIT 1997 FOBT 1997 Sigmoidoscopy 1997 [facility]-Colorectal Cancer Screening 1997 [facility]-Pneumococcal Vaccine: 50+ Years (2 of 2 - PCV) 02/16/2021 02/17/2020 [facility]-Zoster Vaccines (2 of 2) 06/02/2022 04/07/2022 [id number] Vaccine ( season) 2023 04/07/2022, 07/20/2021, 01/21/2021, Additional history exists [facility]-Influenza Vaccine (#1) 2024 01/06/2021 [facility]-DTaP,Tdap,and Td Vaccines (2 - Td or Tdap) 09/18/2026 09/18/2016, 05/21/1996 [facility]-RSV Vaccine: 60+ Years or (1 - 1-dose 75+ series) 09/17/2027 HPV Vaccines Aged Out No longer eligi ble based on patient's age to complete this topic [facility]-HIB Vaccines Aged Out No longer e ligible based on patient's age to complete this topic [facility]-Hepatitis A Vaccines Aged Out No longer eligible based on patient's age to complete this topic [facility]-IPV Vaccines Aged Out No longer e ligible based on patient's age to complete this topic [facility]-Rotavirus Vaccines Aged Out No lo nger eligible based on patient's age to complete this topic Insurance [place] [address] Advance Directives * Full Code (Latest Code Status on File) Date Activated Date Inactivated Comments 06/20/2022 6:33 AM 06/24/2022 7:08 PM Question Answer Comments Patient has decision-making capacity? Yes Care Teams Corrugator Helper Relationship Specialty Start Date End Date Ernesto Daniel MD [address] [place] [address] PCP - General 06/20/22
== END 2024-09-15 23:59 | disposition home or self-care (01) ==
LOC: LAB.DROPOF 09-17 10:58
PROVIDERS: PCP Nurse Practitioner; Visit Provider Nurse Practitioner
DX: I13.0 Hypertensive heart and chronic kidney disease with heart failure and stage 1 through stage 4 chronic kidney disease, or unspecified chronic kidney disease (principal); N18.9 Chronic kidney disease, unspecified; R60.0 Localized edema
CPT/HCPCS: 80053; 83880; 85025

== ENCOUNTER 2024-10-13 11:25 | Outpatient (CLI) | payer MEDICARE, OTHER, SELFPAY ==
[2024-10-13 16:07] LABS: Chloride 101 mmol/L (98-107); Potassium 4.1 mmoL/L (3.5-5.1); Sodium 135 mmol/L (136-145)
[2024-10-13 16:10] LABS: Anion Gap 9.1 mEq/L (5-15); Blood Urea Nitrogen 23 mg/dl (9-20); Calcium 10.2 mg/dl (8.4-10.2); Carbon Dioxide 29 mmol/L (22.0-30.0); Creatinine,Serum 1.40 mg/dl (0.66-1.25); Estimated Glomerular Filt Rate 50 ml/min (>60); GFR (African American) 60 ML/MIN (>60); Glucose 120 mg/dl (74-100)
--- OUTSIDE RECORDS SUMMARY | 2024-10-14 15:49 | XMS_ITS | Encounter Summary ---
Author Organization [facility] ([place], [place], [place], [place]) Address [address] [place] [address] Care Team Providers Care Hot Knife Cutter Name Role Phone Martinez Canseco MD Primary Care Provider [phone] Encounter Details Date Type Department Care Team (Late st Contact Info) Description 09/03/2018 Transcribed Document [facility] [place] [facility] [address] [place] [address] ProviderIvan MD [address] [place] [address] Social History Tobacco Use Types Packs/Day Years Used Date Smoking Tobacco: Never Assessed Sex and Gender Information Value Date Recorded Sex Assigned at Male 09/13/2021 8:33 PM CDT Legal Sex Male 8:33 PM CDT Gender Identity Male 09/13/2021 8:33 PM CDT Sexual Orientation Not on file documented as of this encounter Miscellaneous Notes * Cerner Conversion Note - Historical ProviderMD - 09/03/2018 9:35 AM CDT Spiritual Care Short Form Entered On: 09/03/2018 14:04 EDT Performed On: 09/03/2018 9:35 EDT by FRIEDA PIZANO General Information, Spiritual Care Spiritual Care Referred by : [place] initiated Reason for Visit : Initial Ministry Provided to : Patient Intervention/Comment/Summary Points : Initial Spiritual Care visit by Nighat coello. [facility] Preference : No listed preference FRIEDA PIZANO - 09/03/2018 14:03 EDT documented in this encounter Plan of Treatment Upcoming Encounters Date Type Department Care Team (Late st Contact Info) Description 10/27/2024 10:00 AM EDT Appointment [facility] MRI [address] [place] [address] [place] [address] [place] [address] [address] [place] [phone] 10/29/2024 10:30 AM EDT Audio - Telemedicine [facility] [address] [facility] [address] [place] [phone] [place] [address] [place] [address] [address] [place] [address] [phone] documented as of this encounter Visit Diagnoses Not on filedocumented in this encounter Care Teams Hot Knife Cutter Relationship Specialty Start Date End Date Martinez Canseco MD [address] [place] [address] PCP - General Family Medicine 10/05/22 documented as of this encounter
--- OUTSIDE RECORDS SUMMARY | 2024-10-14 15:49 | XMS_ITS | Encounter Summary ---
Author Organization [employer] ([place], [place], [place], [place]) Address [address] [place] [address] Care Team Providers Care Machine Stuffer Name Role Phone Martinez Canseco MD Primary Care Provider [phone] Encounter Details Date Type Department Care Team (Late st Contact Info) Description 09/03/2018 Transcribed Document [facility] [place] Family Medicine [address] [place] [address] ProviderIvan MD [address] [place] [address] Social History Tobacco Use Types Packs/Day Years Used Date Smoking Tobacco: Never Assessed Sex and Gender Information Value Date Recorded Sex Assigned at Male 09/13/2021 8:33 PM CDT Legal Sex Male 8:33 PM CDT Gender Identity Male 09/13/2021 8:33 PM CDT Sexual Orientation Not on file documented as of this encounter Miscellaneous Notes * Cerner Conversion Note - Ivan Nino MD - 09/03/2018 11:59 AM CDT Patient: AUGUSTO PACHECO Age: 67 years Sex: Male : 1950 Associated Diagnoses: None Author: LEANDER WHEELER PA Basic Information Mr. Pacheco is a 67-year old male with a past medical history significant for HTN, HLD, COPD, tobacco abuse, and diverticulitis s/p colostomy. A few weeks ago, he developed shortness of breath and he was treated for pneumonia by his primary care provider. However, his shortness of breath continued to increase and he developed bilateral lower extremity edema and fatigue. He was noted to have EKG changes and was referred to cardiology. Transthoracic echocardiogram revealed an EF 60% with moderate to severe mitral regurgitation. Cardiology scheduled him for an outpatient cardiac catheterization today. This revealed multivessel coronary artery disease. The report is not currently available. He was transferred her for evaluation of coronary artery disease and mitral regurgitation. He is currently resting in bed free of chest pain. He has not been on any blood thinners. Subjective 09/03: JESUSITA this am, no SOB or chest pain Review of Systems Respiratory: No shortness of breath. Cardiovascular: No chest pain. Gastrointestinal: No nausea. Neurologic: Alert and oriented X4. Health Status Allergies: Allergic Reactions (Selected) No Known Allergies Objective VS/Measurements Vital Measurements 09/03/2018 8:06 EDT Heart Rate, Apical 86 bpm 09/03/2018 6:10 EDT Systolic Blood Pressure 135 mmHg Diastolic Blood Pressure 94 mmHg HI 09/03/2018 5:00 EDT Oxygen Saturation 92 % LOW Oxygen Therapy Mode Room air 09/02/2018 15:02 EDT Diastolic Blood Pressure 97 mmHg CO General: Alert and oriented, No acute distress. Respiratory: Lungs are clear to auscultation, Breath sounds are equal. Cardiovascular: Normal rate, Regular rhythm, Systolic murmur, No edema. Gastrointestinal: Soft. Neurologic: Alert, Oriented, No focal deficits. Psychiatric: Cooperative, Appropriate mood & affect. Review / Management Results review: SEP 03 03:25 139 108 15 / 92 4.2 25 0.90 \ SEP 02 15:23 \ 16.0 / 8.1 174 / 45.5 \. Radiology results Radiology Results (Last 48 hours) [id number] -- 09/02/2018 14:21 CR Chest 1 Vw Portable (09/02/2018 16:38) Result: PORTABLE CHEST HISTORY: Chest pain.COMPARISON: None.FINDINGS: Cardiomegaly is noted. The mediastinum is normal.There ismild bilateral scarring/fibrosis. There is no pneumothorax. The bonythorax in intact. IMPRESSION: Cardiomegaly.Mild bilateral scarring/fibrosis. JESUSITA 09/03/18 Impression: Structurally normal mitral valve. Moderate-severe mitral regurgitation. The jet is centrally-located and centrally-directed. No masses or vegetations seen. Impression and Plan Moderate to severe mitral regurgitation CAD HTN HLP Recent pneumonia COPD ongoing tobacco abuse ETOH abuse 09/03: Carotid duplex and PFTs JESUSITA - moderate to severe MR documented in this encounter Plan of Treatment Upcoming Encounters Date Type Department Care Team (Late st Contact Info) Description 10/27/2024 10:00 AM EDT Appointment [facility] [address] [place] [phone] [place] [address] [place] [address] [address] [place] [phone] 10/29/2024 10:30 AM EDT Audio - Telemedicine [facility] [address] [place] [address] [place] [phone] Adalberto Painting MD [address] [place] [address] [address] [place] [phone] documented as of this encounter Visit Diagnoses Not on filedocumented in this encounter Care Teams Machine Stuffer Relationship Specialty Start Date End Date Martinez Canseco MD [address] [place] [address] PCP - General Family Medicine 10/05/22 documented as of this encounter
--- OUTSIDE RECORDS SUMMARY | 2024-10-14 15:49 | XMS_ITS | Encounter Summary ---
Author Organization [facility] ([place], [place], [place], [place]) Address [address] [place] [address] Care Team Providers Care Hatchery Helper Name Role Phone Martinez Canseco MD Primary Care Provider [phone] Encounter Details Date Type Department Care Team (Late st Contact Info) Description 09/05/2018 Transcribed Document [facility] [address] [place] [address] ProviderIvan MD [address] [place], [place] [id number] Social History Tobacco Use Types Packs/Day Years Used Date Smoking Tobacco: Never Assessed Sex and Gender Information Value Date Recorded Sex Assigned at Male 09/13/2021 8:33 PM CDT Legal Sex Male 8:33 PM CDT Gender Identity Male 09/13/2021 8:33 PM CDT Sexual Orientation Not on file documented as of this encounter Miscellaneous Notes * Cerner Conversion Note - Ivan ProviderMD - 09/05/2018 2:00 AM CDT Lead Manufacturing Engineer Details Entered On: 09/05/2018 4:17 EDT Performed On: 09/05/2018 2:00 EDT by Emmie Slater, Rn Order Details Transport Mode Order Detail : Bed (including specialty) Isolation Precautions Order Detail : Standard Precautions Order Detail : N/A IV Order Detail : 1 Oxygen Order Detail : 1 Nurse Collect Order Detail : 1 Lift/Transfer : Maximal assist Central Line Order Detail : Yes Room Service : Not Appropriate Arterial Line : Yes Emmie Slater, Rn - 09/05/2018 4:17 EDT documented in this encounter Plan of Treatment Upcoming Encounters Date Type Department Care Team (Late st Contact Info) Description 10/27/2024 10:[address] [facility] MRI 1 [place] [address] [place] [address] [place] [address] [address] [place] [phone] 10/29/2024 10:30 AM EDT Audio - Telemedicine [facility] [address] [facility] [address] [place] [phone] [place] [address] [place] [address] [address] [place] [address] [phone] documented as of this encounter Visit Diagnoses Not on filedocumented in this encounter Care Teams Hatchery Helper Relationship Specialty Start Date End Date Martinez Canseco MD [address] [place] [address] PCP - General Family Medicine 10/05/22 documented as of this encounter
--- OUTSIDE RECORDS SUMMARY | 2024-10-14 15:49 | XMS_ITS | Encounter Summary ---
Author Organization [employer] ([place], [place], [place], [place]) Address [address] [place] [address] Care Team Providers Care Dealer Sales Rep Name Role Phone Martinez Canseco MD Primary Care Provider [phone] Encounter Details Date Type Department Care Team (Late st Contact Info) Description 09/03/2018 Transcribed Document [facility] [place] Family Medicine [address] [place] [address] ProviderIvan MD [address] [place], [place] [id number] Social History Tobacco Use Types Packs/Day Years Used Date Smoking Tobacco: Never Assessed Sex and Gender Information Value Date Recorded Sex Assigned at Male 09/13/2021 8:33 PM CDT Legal Sex Male 8:33 PM CDT Gender Identity Male 09/13/2021 8:33 PM CDT Sexual Orientation Not on file documented as of this encounter Miscellaneous Notes * Cerner Conversion Note - Ivan ProviderMD - 09/03/2018 5:00 PM CDT Chart Check - Review Order Profile Entered On: 09/03/2018 16:00 EDT Performed On: 09/03/2018 17:00 EDT by EVAN WALTON, EDUARDO Chart Check Powerplans Initiated/Discontinued as Appropriate : Yes All Active Orders Reviewed : Yes EVAN WALTON, RN - 09/03/2018 16:00 EDT Electronically signed by [facility] Conversion Fabricator Special Items Cerner at 07/05/2022 8:44 PM CDT documented in this encounter Plan of Treatment Upcoming Encounters Date Type Department Care Team (Late st Contact Info) Description 10/27/2024 10:00 AM EDT Appointment [facility] MRI [address] [place] [address] Adalberto Painting MD [address] [facility] [address] [place] [address] [phone] 10/29/2024 10:30 AM EDT Audio - Telemedicine [facility] [address] [place] [address] [address] [place] [address] Adalberto Painting MD [address] [facility] [address] [place] [address] [phone] documented as of this encounter Visit Diagnoses Not on filedocumented in this encounter Care Teams Dealer Sales Rep Relationship Specialty Start Date End Date Martinez Canseco MD [address] [place] [address] PCP - General Family Medicine 10/05/22 documented as of this encounter
--- OUTSIDE RECORDS SUMMARY | 2024-10-14 15:49 | XMS_ITS | Encounter Summary ---
Author Organization [employer] ([place], [place], [place], [place]) Address [address] [place] [address] Care Team Providers Care Screen Tender Name Role Phone Martinez Canseco MD Primary Care Provider [phone] Encounter Details Date Type Department Care Team (Late st Contact Info) Description 09/05/2018 Transcribed Document [facility] [place] Family Medicine [address] [place] [address] ProviderIvan MD [address] [place] [address] Social History Tobacco Use Types Packs/Day Years Used Date Smoking Tobacco: Never Assessed Sex and Gender Information Value Date Recorded Sex Assigned at Male 09/13/2021 8:33 PM CDT Legal Sex Male 8:33 PM CDT Gender Identity Male 09/13/2021 8:33 PM CDT Sexual Orientation Not on file documented as of this encounter Miscellaneous Notes * Cerner Conversion Note - Historical ProviderMD - 09/05/2018 10:52 AM CDT Attempt to Treat, PT Entered On: 09/05/2018 10:53 EDT Performed On: 09/05/2018 10:52 EDT by KAYLAN SOARES, PT Attempt to Treat Unable to Treat Due To : Acuity of Illness Inability to Treat Comment : Per Nsg. Flaherty: Patient on vent and sedated. PT will follow-up 09/06/18. Notification : Nsg. Flaherty. KAYLAN SOARES, PT - 09/05/2018 10:52 EDT Electronically signed by [facility] Conversion Grit Blaster Cerner at 07/05/2022 8:41 PM CDT documented in this encounter Plan of Treatment Upcoming Encounters Date Type Department Care Team (Late st Contact Info) Description 10/27/2024 10:00 AM EDT Appointment [facility] MRI 1 [place] [address] [place] [address] [place] [address] [address] [place] [phone] 10/29/2024 10:30 AM EDT Audio - Telemedicine [facility] [address] [place] [address] [place] [phone] [place] [address] [place] [address] [address] [place] [address] [phone] documented as of this encounter Visit Diagnoses Not on filedocumented in this encounter Care Teams Screen Tender Relationship Specialty Start Date End Date Martinez Canseco MD [address] [place] [address] PCP - General Family Medicine 10/05/22 documented as of this encounter
--- OUTSIDE RECORDS SUMMARY | 2024-10-14 15:49 | XMS_ITS | Encounter Summary ---
Author Organization [employer] ([place], [place], [place], [place]) Address [address] [place] [address] Care Team Providers Care Ham Rolling Machine Operator Name Role Phone Martinez Canseco MD Primary Care Provider [phone] Encounter Details Date Type Department Care Team (Late st Contact Info) Description 09/04/2018 Transcribed Document [facility] Medicine [address] [place] [address] ProviderIvan MD [address] [place] [address] Social History Tobacco Use Types [...] Conversion Note - Ivan Nino MD - 09/04/2018 9:44 PM CDT DATE OF SERVICE: 09/04/2018 INTRAOPERATIVE TRANSESOPHAGEAL ECHOCARDIOGRAM CLINICAL INFORMATION: Patient was scheduled for a coronary artery bypass grafting and mitral valve procedure by Dr. Gaxiola. JESUSITA is indicated due to the surgeon's request to intraoperatively evaluate the patient's cardiac structure and function. JESUSITA was carried out in the operating room with the patient under general anesthesia. The Lan Omniplane probe was passed easily and the images were acquired by Dr. Anguiano. Due to a software issue, the pre and post stored images were saved as exams. The aortic valve was trileaflet. These leaflets had mildly thickened edges, but were fully mobile. There was no aortic insufficiency. There was no aortic stenosis with a peak aortic valve gradient of 2 mmHg and a mean of 1 mmHg. Aortic valve area was 4.2 square centimeter by planimetry. Measured diameters include aortic annulus was 29 mm, sinotubular junction 30 mm, and ascending aorta 33 mm. The mitral valve leaflets showed mild calcification and mild thickening. The anterior leaflet moved normally and there was slight reduction of motion of the posterior leaflet. There was no mitral valve prolapse. There was mild mitral annular calcification. The mitral annulus measured 34 and 44 mm. Peak mitral valve gradient was 1 mmHg. E to A ratio was 1.1. There was moderate mitral regurgitation with a central jet. The regurgitant jet reached the posterior left atrial wall. The mitral regurgitation vena contracta was 0.6 mm. The pulmonary vein flow pattern by pulse-wave Doppler showed a blunted S wave. The left atrial size was at the upper limits of normal measuring 31 x 40 mm. There is no clot or masses in the left atrial appendage. Peak left atrial appendage outflow velocity was 43 cm/second and inflow velocity 71 cm per second. Tricuspid valve showed no insufficiency. The pulmonic valve showed no insufficiency. The interatrial septum was intact by 2D and color flow imaging. The interatrial septum was displaced to the right consistent with increased left atrial pressures. A pulmonary artery catheter was visible. The left ventricular cavity showed mild dilation. The posterior left ventricular wall was normal in thickness measuring 1 cm. Left ventricular ejection fraction was visually estimated to be 40%. While there were no specific regional wall motion abnormalities, overall there was reduced contraction. The right ventricle appeared normal in size and function. The descending thoracic aorta, transverse aorta, and ascending aorta showed grade 2 atheromatous changes. POST CARDIOPULMONARY BYPASS: The echocardiographic exam was repeated. Mitral valve exam now reveals mitral valve valvuloplasty with ring. There was trace mitral regurgitation. Peak mitral valve gradient was 3 mmHg with a mean of 2 mmHg. The remainder of the valvular exam was unchanged. There was no dissection of the thoracic aorta. Left ventricular exam shows an ejection fraction of 50% with improved contractility anteriorly. IMPRESSION: 1. Normal aortic valve, tricuspid valve, and pulmonic valve function. 2. Moderate mitral regurgitation. Mitral valve valvuloplasty resulting in trace mitral insufficiency. 3. Mild left ventricular dilation with normal left ventricular wall thickness. 4. Mild left ventricular dysfunction, ejection fraction 40%. The findings were discussed with the surgeon, Dr. Gaxiola. Denzel Anguiano M.D. Dict: 09/04/2018 21:44:39 Trans: 09/05/2018 02:05:35 CC1: Denzel Anguiano M.D. Electronically signed by [facility] Conversion Food Aide Cerner at 07/05/2022 8:29 PM CDT documented in this encounter Plan of Treatment Upcoming Encounters Date Type Department Care Team (Late st Contact Info) Description 10/27/2024 10:00 AM EDT Appointment [facility] [address] [place] [id number] Adalberto Painting MD [address] [place] [address] [address] [place], [place] [phone] 10/29/2024 10:30 AM EDT Audio - Telemedicine [facility] [address] [place] [address] [address] [place] [phone] Adalberto Painting MD [address] [place] [address] [address] [place] [address] [phone] documented as of this encounter Visit Diagnoses Not on filedocumented in this encounter Care Teams Ham Rolling Machine Operator Relationship Specialty Start Date End Date Martinez Canseco MD [address] [place] [address] PCP - General Family Medicine 10/05/22 documented as of this encounter
--- OUTSIDE RECORDS SUMMARY | 2024-10-14 15:49 | XMS_ITS | Encounter Summary ---
Author Organization [employer] ([place], [place], [place], [place]) Address [address] [place] [address] Care Team Providers Care Calibration Checker Name Role Phone [place] Canseco MD Primary Care Provider [phone] Encounter Details Date Type Department Care Team (Late st Contact Info) Description 09/05/2018 Transcribed Document [facility] Pulm & Critical Care Medicine [address] [place] [address] [phone] [place] [address] [place] [address] [address] [place] [address] Social History Tobacco Use Types Packs/Day Years Used Date Smoking Tobacco: Never Assessed Sex and Gender Information Value Date Recorded Sex Assigned at Male 09/13/2021 8:33 PM CDT Legal Sex Male 8:33 PM CDT Gender Identity Male 09/13/2021 8:33 PM CDT Sexual Orientation Not on file documented as of this encounter Miscellaneous Notes * Cerner Conversion Note - Leeroy Garvey MD - 09/05/2018 9:56 AM EDT Patient: IZABELLA PACHECO Age: 67 years Sex: Male : 1950 Associated Diagnoses: None Author: LEEROY GARVEY MD Pulmonary Consultation Date of Admission: 09/02/2018 Date of Consultation: 09/05/2018 Refering Physician: Bridgett Reason for Consult: Post Operative Respiratory Insufficicency Basic Information CC: Unobtainable HPI: Thisis a 67 year old male with a past medical history of HTN, HLD, COPD, and Tobacco abuse. A few weeks prior he developed shortness of breath and was treated for pneumonia by his PCP. After the course was completed, he continued to have shortness of breath as well as bilateral lower extremity edema and fatigue. He was referred to [facility] where they noted EKG changces and he underwent outpatient cardiac cath. 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 He was transferred to [facility] for CTS evaluation. On 09/04, he underwent CABG X 2 with Rosa Maria Valve Repair. Operative course was uncomplicated per documentation. Unfortunately, he was unable to be liberated from the vent within the time window of protocol. Currently on 80% FIO2 with Peep of 8. Patient is sedated. Hemodynamically unstable, on Vasopression and EPI gtt. PUlmonary has been consulted for Post-Operative vent weaning. Past Medical History CAD Hernia HTN HLD Tobacco Abuse Pneumonia Mitral valve insufficiency Surgical History Hernia Repair Tonsillectomy Nose Fracture Repair Colon Resection with Colostomy Costomy REversal 2008 Social History 1.5ppd Smoker X 50 years 2-3 beers per day Family History CAD Review of Systems Unable to obtain: Due to clinical condition. Health Status Allergies: Allergic Reactions (Selected) No Known Allergies, Allergies (1) Active Reaction No Known Allergies None Documented Current medications: (Selected) Inpatient Medications Ordered ALPRAZolam: 0.25 mg, Oral, TID, PRN: Anxiety Ancef: 2 Gram, 100 mL, 200 mL/Hr, IV Piggyback, PREOP Bactroban 2% nasal ointment: 1 Application, Nostrils Both, BID Colace: 100 mg, Oral, BID Dextrose 5% with 0.225% NaCl intravenous solution 1,000 mL: 30 mL/Hr, IntraVENous Dextrose 50% injection: 12.5 Gram, IntraVENous, Q15Min, PRN: Other (See Comment) Dextrose 50% injection: 25 Gram, IntraVENous, Q15Min, PRN: Other (See Comment) DuoNeb 0.5 mg-2.5 mg/3 mL inhalation solution: 3 mL, Nebulized Inhalation, RT_Q4H, PRN: Shortness of Breath EPINEPHrine injection 5 mg + NaCl 0.9% for drip 250 mL: TITRATE, IntraVENous Insulin regular injection 100 Units + Sodium Chloride 0.9% intravenous solution 100 mL: Corrective Insulin Drip, IntraVENous Lactated Ringers Injection intravenous solution 1,000 mL: 20 mL/Hr, IntraVENous Lasix: 20 mg, IV Push, 1-Time, PRN: Other (See Comment) Lasix: 60 mg, IV Push, 1-Time Lipitor: 20 mg, Oral, At Bedtime Milk of Magnesia 8% oral suspension: 30 mL, Oral, Daily, PRN: Constipation Nitrostat: 0.4 mg, SubLINgual, Q5Min, PRN: Pain Normal Saline Flush: 10 mL, IV Push, Q12H Normal Saline Flush: 10 mL, IV Push, See Comment, PRN: IV Use Pepcid: 20 mg, IV Push, BID Percocet 5/325 oral tablet: 2 Tab, Oral, Q4H, PRN: Pain (Moderate 4-6) Protonix: 40 mg, Oral, Daily Reglan: 10 mg, IV Push, Q6H, PRN: Nausea/Vomiting Reglan: 10 mg, Oral, Q6H, PRN: Nausea/Vomiting Senokot: 17.2 mg, Oral, At Bedtime Sodium Chloride 0.9% bolus: 250 mL, 500 mL/Hr, IV Piggyback, On-CALL, PRN: Hypotension Tylenol: 650 mg, Oral, Q4H, PRN: Pain (Mild 1-3) Tylenol: 650 mg, Oral, Q4H, PRN: Temperature Zofran: 4 mg, IV Push, Q4H, PRN: Nausea albumin human 5% intravenous solution: 12.5 Gram, 250 mL, IntraVENous, Daily, PRN: Other (See Comment) ascorbic acid: 500 mg, Oral, BID aspirin: 81 mg, Oral, Daily dexmedetomidine injection 400 mcg + NaCl 0.9% for drip 100 mL: Titrate, IntraVENous glucagon: 1 mg, IntraMuscular, Q15Min, PRN: Other (See Comment) glucose 4 g oral tablet, chewable: 16 Gram, 4 Tab, Chew, Q15Min, PRN: Other (See Comment) glucose 40% oral gel: 15 Gram, Oral, Q15Min, PRN: Other (See Comment) lidocaine 1% preservative-free injectable solution: 0.5 mL, IntraDermal, 1-Time lisinopril: 40 mg, Oral, Daily magnesium sulfate: 1.5 Gram, 3 mL, 100 mL/Hr, IV Piggyback, Q8H metoprolol tartrate: 12.5 mg, Oral, BID morphine: 2 mg, IV Push, Q30Min, PRN: Pain (Severe 7-10) oxyCODONE: 5 mg, Oral, Q6H, PRN: Pain (Moderate 4-6) potassium chloride 10 mEq/50 mL intravenous solution: 10 mEq, 50 mL, 50 mL/Hr, IV Piggyback, Q1H, PRN: Other (See Comment) propofol injection 1,000 mg + Premix Diluent for Drip 100 mL: TITRATE, IntraVENous sodium bicarbonate: 100 mEq, IV Push, 1-Time, PRN: Other (See Comment) vasopressin injection 20 Units + NaCl 0.9% for drip 100 mL: Titrate, IntraVENous Documented Medications Documented Lasix 20 mg oral tablet: Tab, Oral, Daily, 0 Refill(s) Xanax 0.25 mg oral tablet: Tab, Oral, TID, PRN: as needed for anxiety, 0 Refill(s) aspirin 81 mg oral delayed release tablet: 1 Tab, Oral, Daily, 30 Tab, 0 Refill(s) furosemide 40 mg oral tablet: Tab, Oral, Daily, 0 Refill(s) lisinopril 40 mg oral tablet: Tab, Oral, Daily, 0 Refill(s) metoprolol extended release: 25 mg, Oral, Daily, 0 Refill(s), Medications (45) Active Scheduled: (15) #NaCl 0.9% *FLUSH* inj 10 mL 10 mL, IV Push, Q12H ascorbic acid 500 mg tab 500 mg 1 Tab, Oral, BID aspirin EC 81 mg tab 81 mg 1 Tab, Oral, Daily atorvastatin 20 mg tab 20 mg 1 Tab, Oral, At Bedtime ceFAZolin 2 Gram 100 mL, IV Piggyback, PREOP docusate sodium 100 mg cap 100 mg 1 Cap, Oral, BID famotidine 20 mg/2 mL inj 20 mg 2 mL, IV Push, BID furosemide 20 mg/2 mL inj 60 mg 6 mL, IV Push, 1-Time lidocaine 1% *PF* inj 2 mL 0.5 mL, IntraDermal, 1-Time lisinopril 20 mg tab 40 mg 2 Tab, Oral, Daily magnesium sulfate 50% 1.5 Gram 3 mL, IV Piggyback, Q8H metoprolol tartrate 25 mg tab 12.5 mg 0.5 Tab, Oral, BID mupirocin 2% nasal oint 1 g 1 Application, Nostrils Both, BID pantoprazole EC 40 mg tab 40 mg 1 Tab, Oral, Daily senna 8.6 mg tab 17.2 mg 2 Tab, Oral, At Bedtime Continuous: (7) D5/NaCl 0.225% 1,000 mL 1,000 mL, IntraVENous, 30 mL/Hr dexmedetomidine 400 mcg + NaCl 0.9% TITRATE 100 mL 100 mL, IntraVENous EPINEPHrine 5 mg + NaCl 0.9% T ITRATE 250 mL 250 mL, IntraVENous insulin regular 100 Units + NaCl 0.9% 100 mL 100 mL, IntraVENous lactated ringers 1,000 mL 1,000 mL, IntraVENous, 20 mL/Hr propofol 1,000 mg + Premix Diluent Titrate 100 mL 100 mL, IntraVENous vasopressin 20 Units + NaCl 0.9% TITRATE 100 mL 100 mL, IntraVENous PRN: (23) #NaCl 0.9% *FLUSH* inj 10 mL 10 mL, IV Push, See Comment acetaminophen 325 mg tab 650 mg 2 Tab, Oral, Q4H acetaminophen 325 mg tab 650 mg 2 Tab, Oral, Q4H acetaminophen/oxyCODONE 325/5 mg tab 2 Tab, Oral, Q4H albumin human 5% 12.5 g/250 mL inj 12.5 Gram 250 mL, IntraVENous, Daily albuterol-ipratropium inh 3 mL 3 mL, Nebulized Inhalation, RT_Q4H ALPRAZolam 0.25 mg tab 0.25 mg 1 Tab, Oral, TID dextrose 50% 25 g/50 mL inj syr 12.5 Gram 25 mL, IntraVENous, Q15Min dextrose 50% 25 g/50 mL inj syr 25 Gram 50 mL, IntraVENous, Q15Min furosemide 20 mg/2 mL inj 20 mg 2 mL, IV Push, 1-Time glucagon 1 mg/1 mL inj 1 mg 1 mL, IntraMuscular, Q15Min glucose 4 g tab 16 Gram 4 Tab, Chew, Q15Min glucose 40% gel 15 g 15 Gram, Oral, Q15Min magnesium hydroxide 8% liq 30 mL 30 mL, Oral, Daily metoclopramide 10 mg tab 10 mg 1 Tab, Oral, Q6H metoclopramide 10 mg/2 mL inj 10 mg 2 mL, IV Push, Q6H morphine 2 mg/1 ml inj 2 mg 1 mL, IV Push, Q30Min NaCl 0.9% 250 mL, IV Piggyback, On-CALL nitroglycerin 0.4 mg tab # 25 btl 0.4 mg 1 Tab, SubLINgual, Q5Min ondansetron 4 mg/2 mL inj 4 mg 2 mL, IV Push, Q4H oxyCODONE 5 mg tab 5 mg 1 Tab, Oral, Q6H potassium chloride 10 mEq 50 mL, IV Piggyback, Q1H sodium bicarbonate 50 mEq/50 ml inj syr 100 mEq 100 mL, IV Push, 1-Time Problem list: All Problems At risk for sleep apnea / IMO 28623149 / Confirmed Cardiomegaly / SNOMED CT 29251425 / Confirmed Steroid-dependent COPD / SNOMED CT 52581055 / Confirmed CAD (coronary artery disease) / SNOMED CT 50832720 / Confirmed Pulmonary fibrosis / SNOMED CT 76347439 / Confirmed History of colostomy reversal / SNOMED CT 921419141 / Confirmed History of broken nose / SNOMED CT 0695383708 / Confirmed H/O right heart catheterization / SNOMED CT 8219838780 / Confirmed H/O hernia repair / SNOMED CT 4148082406 / Confirmed History of tonsillectomy / SNOMED CT 9582435114 / Confirmed COPD, moderate / SNOMED CT 867647598 / Confirmed Pneumonia / SNOMED CT 401779271 / Confirmed Smoker / SNOMED CT 178731814 / Confirmed, Active Problems (13) At risk for sleep apnea CAD (coronary artery disease) Cardiomegaly COPD, moderate H/O hernia repair H/O right heart catheterization History of broken nose History of colostomy reversal History of tonsillectomy Pneumonia Pulmonary fibrosis Smoker Steroid-dependent COPD Physical Examination VS/Measurements Vitals Signs (last 24 hrs) Last Charted Minimum Maximum Temp 98.1 (SEP 05 06:00) 97.7 (SEP 05 01:00) 98.1 (SEP 05 03:00) Mon HR 62 (SEP 05 08:02) 62 (SEP 05 08:02) 81 (CAYETANO 20 01:00) Periph HR 77 (CAYETANO 19 14:11) 77 (CAYETANO 19 14:11) 77 (CAYETANO 19 14:11) Resp Rate 16 (CAYETANO 19 23:38) 14 (CAYETANO 19 14:11) 16 (AUG 19 23:38) SBP 127 (CAYETANO 19 14:11) 127 (CAYETANO 19 14:11) 127 (CAYETANO 19 14:11) DBP 62 (CAYETANO 19 14:11) 62 (CAYETANO 19 14:11) 62 (CAYETANO 19 14:11) MAP 69 (AUG 20 07:00) 69 (AUG 20 07:00) 92 (AUG 20 05:00) SpO2 96 (AUG 20 08:02) L 92 (AUG 19 23:38) 99 (AUG 20 01:30) Intake & Output Totals Last 24 Hours (7a-7a) Intake (50 Events) Continuous Infusions (591.2367 mL) Medications (323.7 mL) Surgical Services Intake (200 mL) Output (19 Events) Chest Tube Output: (220 mL) Chowdary Catheter (785 mL) Input Total: 1114.9367 mL Output Total: 1005 mL Balance: 109.9367 mL General: Sedate on Vent. Eye: Pupils are equal, round and reactive to light, Normal conjunctiva. HENT: Normocephalic. Neck: Supple, Non-tender, No lymphadenopathy. Respiratory: Respirations are non-labored. Cardiovascular: Normal rate, Good pulses equal in all extremities. Gastrointestinal: Soft, Non-tender, Non-distended, Normal bowel sounds. Musculoskeletal: No deformity. Integumentary: Warm, Dry, No rash. Neurologic: sedated on vent. Review / Management Results review: Labs (Last four charted values) WBC H 15.5 (CAYETANO 20) H 12.0 (CAYETANO 19) 8.6 (CAYETANO 18) 8.1 (CAYETANO 17) HB L 11.9 (CAYETANO 20) L 11.4 (CAYETANO 19) 15.2 (CAYETANO 18) 16.0 (CAYETANO 17) HCT L 35.0 (CAYETANO 20) L 33.7 (CAYETANO 19) 43.5 (CAYETANO 18) 45.5 (CAYETANO 17) Plt 177 (CAYETANO 20) L 147 (CAYETANO 19) 165 (CAYETANO 18) 174 (CAYETANO 17) Na 139 (CAYETANO 20) 141 (CAYETANO 19) 138 (CAYETANO 18) 139 (CAYETANO 18) K 4.7 (CAYETANO 20) 4.3 (CAYETANO 19) 4.3 (CAYETANO 18) 4.2 (CAYETANO 18) Cl 109 (CAYETANO 20) 110 (CAYETANO 19) 107 (CAYETANO 18) 108 (CAYETANO 18) CO2 23 (CAYETANO 20) 26 (CAYETANO 19) 25 (CAYETANO 18) 25 (CAYETANO 18) BUN 14 (CAYETANO 20) 13 (CAYETANO 19) 20 (CAYETANO 18) 15 (CAYETANO 18) Cr 0.90 (CAYETANO 20) 0.90 (CAYETANO 19) 1.00 (CAYETANO 18) 0.90 (CAYETANO 18) Glu R H 180 (CAYETANO 20) H 131 (CAYETANO 19) 101 (CAYETANO 18) 92 (CAYETANO 18) Ca 8.4 (CAYETANO 20) 8.5 (CAYETANO 19) 9.7 (CAYETANO 18) 9.5 (CAYETANO 18) PT 10.7 (CAYETANO 18) 10.7 (CAYETANO 17) INR 1.0 (CAYETANO 18) 1.0 (CAYETANO 17) PTT 27.8 (CAYETANO 18) 27.5 (CAYETANO 17) AST 17 (CAYETANO 19) 19 (CAYETANO 18) 17 (CAYETANO 17) ALT 23 (CAYETANO 19) 25 (CAYETANO 18) 25 (CAYETANO 17) ALK P 71 (CAYETANO 19) 80 (CAYETANO 18) 74 (CAYETANO 17) T Bili 1.0 (CAYETANO 19) 0.4 (CAYETANO 18) 0.6 (CAYETANO 17) PTN 6.6 (CAYETANO 19) 6.7 (CAYETANO 18) 6.5 (CAYETANO 17) ALB L 3.3 (CAYETANO 19) L 3.3 (CAYETANO 18) 3.5 (CAYETANO 17) . Radiology Results (Last 48 hours) [id number] -- 09/02/2018 14:21 CR Chest 1 Vw Portable (09/03/2018 22:08) Result: PORTABLE CHEST 09/03/2018 8:05 PM HISTORY: Precordial chest pain . Preoperative cardiopulmonaryclearance.COMPARISON: September 02, 2018.FINDINGS: The heart is mildly enlarged The mediastinum is unremarkable.There are coarse interstitial changes seen throughout both lungs, mostevident within the right lung apex. Findings are similar in appearancewhen compared to prior likely related to chronic fibrosis. Lungs areotherwise clear. There is no pneumothorax. The osseous structures areunremarkable. IMPRESSION: No acute cardiopulmonary process. No change since previous.Images reviewed, interpreted, and dictated by Dr. Joey Miller.Transcribed by Norberto oRca, KEIRA have personally viewed, interpreted and dictated the examination. Iheric read and agree with the above final transcribed report. CR Chest 1 Vw Portable (09/04/2018 23:47) Result: PORTABLE CHEST 09/04/2018 23:44 PM HISTORY: Thoracic surgery .COMPARISON: Film obtained the previous day .FINDINGS: The heart is mildly enlarged. The patient is status postmedian sternotomy. There is a small left effusion and a lower lobeinfiltrate. There is been interval worsening in a right peritrachealopacity. Diffuse interstitial changes appear chronic. There is nopneumothorax. The support devices are in good position. IMPRESSION: Post operative changes. Continued follow up recommended.PORTABLE CHEST 09/05/2018 4:00 AM HISTORY: Postoperative.COMPARISON: 3 hours prior.FINDINGS: The heart is stable in size. There has been interval worseningin the perihilar and bibasilar opacities and right upper lobe opacity.There is a questionable left base pneumothorax. The support devices arein good position. Status post median sternotomy.IMPRESSION: Interval worsening as above.Questionable left base pneumothorax.Continued follow up recommended.Images reviewed, interpreted, and dictated by Dr. Al Kinney.Transcribed by Imelda Pelletier ([place]). CR Chest 1 Vw Portable (09/05/2018 03:41) Result: PORTABLE CHEST 09/04/2018 23:44 PM HISTORY: Thoracic surgery .COMPARISON: Film obtained the previous day .FINDINGS: The heart is mildly enlarged. The patient is status postmedian sternotomy. There is a small left effusion and a lower lobeinfiltrate. There is been interval worsening in a right peritrachealopacity. Diffuse interstitial changes appear chronic. There is nopneumothorax. The support devices are in good position. IMPRESSION: Post operative changes. Continued follow up recommended.PORTABLE CHEST 09/05/2018 4:00 AM HISTORY: Postoperative.COMPARISON: 3 hours prior.FINDINGS: The heart is stable in size. There has been interval worseningin the perihilar and bibasilar opacities and right upper lobe opacity.There is a questionable left base pneumothorax. The support devices arein good position. Status post median sternotomy.IMPRESSION: Interval worsening as above.Questionable left base pneumothorax.Continued follow up recommended.Images reviewed, interpreted, and dictated by Dr. Al Kinney.Transcribed by Imelda Pelletier (R). Reviewed and visualized September 05, 2018 there is a right apical atelectasis : eval for RUL collpase, and worsening left lower lung infiltre DATE OF STUDY: 09/02/2018 Race: . Height: 73 inches. Weight: 203 pounds. Body mass index: 26.97. TEST COMMENTS: Spirometry data is acceptable and reproducible according to ATS criteria. Flow volume loops are acceptable with skewing of expiratory limb, hinting of airway obstruction. Exhalation time more than 6 seconds. SPIROMETRY: FVC 3.51 L, 69% predicted. FEV1 of 2.05 L, 54% predicted. FEV1/FVC percentage predicted is 59. Diffusion lung capacity was 70% of predicted when corrected to alveolar volume. IMPRESSION: 1. Moderate airway obstruction, GOLD criteria, chronic obstructive pulmonary disease stage 2. Unfortunately, no spirometry after bronchodilator therapy was done. 2. Diffusion lung capacity was mildly reduced. Clinical correlation is indicated for lung parenchymal disease, anemia, and/or pulmonary vascular disease. Impression and Plan 1. Acute Post Operative Hypoxemic Respiratory Failure due to a- base line moderate copd and emphysema and decreased diffusion capicity b: probable chronic intersitial markings noted on CXR c. probable RUL infiltrate / collpase and worsening left lower lung infiltrate d. pulm vascular congestion e. ( it was reported that pt may have a basilar pneumothorax: this is minimal , pt has a left pleural chest tube 2. Cardiac: CAD CABG x 2 with mitral reapin ICM ERF 40% 3. ID -Leukocytosis--Probable Acute Phase Reactant 4. Renal -Stable Cr/BUN 5. GI -NPO 6. DVT/GI Plan Pulm and CCM Attending Note: I performed personally History evaluation, Review of systems, Physical examniation and reviewed Labs as well as Radiology data and Medications, I discussed with allied staff patient???s condition and discussed findings, I formulated diagnoses/impression and plan and I updated note . I also discussed my impression and plan for the day with patient???s nurse Patient requires a high complexity of decision making for assessment. Overall my opinion and recommendations are: Vent Bundle changed TV to 510 ml ( as per pt basia 6'3 ) and rate to 23 and adjusted insp time Sedtion--Precedex--RASS -1 requiring propofol / precedex and will add fentanyl ((( wean propofol if pt is doing better on reqs of FIo2 and possible extubation other garcia will stop precedex and continue propofol and fentayl record cam icu Hemodynamic Support per CTS Protocol keep map> 65 Glycemic Control per CTS protocol Add Mucinex Add Duonebs Q6 and prn CT chest WO to evaluate Right upper Lung abnormalites Pepcid/Start DVT prophylaxis when ok with CTS glycemic control as per CTS protcol AM labs ordered prognosis : guarded code : full dispo : ICU thanks [id number] documented in this encounter Plan of Treatment Upcoming Encounters Date Type Department Care Team (Late st Contact Info) Description 10/27/2024 10:00 AM EDT Appointment [facility] [address] [place] [id number] Adalberto Painting MD [address] [place] [address] [place] [address] 10/29/2024 10:30 AM EDT Audio - Telemedicine [facility] [address] [place] [address] [place] [phone] Adalberto Painting MD [address] [place] [address] [address] [place] [phone] documented as of this encounter Visit Diagnoses Not on filedocumented in this encounter Care Teams Calibration Checker Relationship Specialty Start Date End Date [place] Canseco MD [address] [place] [address] PCP - General Family Medicine 10/05/22 documented as of this encounter
--- OUTSIDE RECORDS SUMMARY | 2024-10-14 15:49 | XMS_ITS | Encounter Summary ---
Author Organization [employer] ([place], [place], [place], [place]) Address [address] [place] [address] Care Team Providers Care Digital Media Analyst Name Role Phone [place] Canseco MD Primary Care Provider Encounter Details Date Type Department Care Team (Late st Contact Info) Description 09/03/2018 Transcribed Document [facility] Pulm & Critical Care Medicine [address] [place] [address] [address] Leeroy Garvey MD [address] [facility] [address] [place] [address] Social History Tobacco Use Types [...] Conversion Note - Leeroy Garvey MD - 09/03/2018 9:38 AM EDT DATE OF STUDY: 09/02/2018 REFERRING PHYSICIAN: Kyler Gaxiola MD PATIENT DATA: Gender: Male. Age: 67. Race: . Height: 73 inches. Weight: 203 [...] parenchymal disease, anemia, and/or pulmonary vascular disease. Leeroy Garvey M.D. Dict: 09/03/2018 08:38:52 Trans: 09/03/2018 14:30:33 CC1: Leeroy Garvey M.D. documented in this encounter Plan of Treatment Upcoming Encounters Date Type Department Care Team (Late st Contact Info) Description 10/27/2024 10:00 AM EDT Appointment [facility] [address] [place] [phone] Adalberto Painting MD [address] [place] [address] [address] [place] [address] 10/29/2024 10:30 AM EDT Audio - Telemedicine [facility] [address] [place] [address] [place] [phone] Adalberto Painting MD [address] [place] [address] [address] [place] [phone] documented as of this encounter Visit Diagnoses Not on filedocumented in this encounter Care Teams Digital Media Analyst Relationship Specialty Start Date End Date [place] Canseco MD [address] [place] [address] PCP - General Family Medicine 10/05/22 documented as of this encounter
--- OUTSIDE RECORDS SUMMARY | 2024-10-14 15:49 | XMS_ITS | Encounter Summary ---
Author Organization [email or web address] ([place], [place], [place], [place]) Address [address] [place] [address] Care Team Providers Care Clinic Clerk Name Role Phone Martinez Canseco MD Primary Care Provider [phone] Encounter Details Date Type Department Care Team (Late st Contact Info) Description 09/04/2018 Transcribed Document [facility] [place] [facility] [address] [place] [address] ProviderIvan MD [address] [place] [address] Social History Tobacco Use Types [...] Note - Ivan Nino MD - 09/04/2018 10:54 PM CDT DATE OF PROCEDURE:09/04/2018 PREOPERATIVE DIAGNOSIS(ES): 1. Unstable angina. 2. Severe mitral regurgitation. 3. Severe two-vessel coronary artery disease. 4. 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 5. Hypertension. 6. Hyperlipidemia. 7. Cigarette abuse. 8. History of colostomy and colostomy recent reversal. 9. Alcohol use, three beers per day. 10. Recent pneumonia. POSTOPERATIVE DIAGNOSIS(ES): 1. Unstable angina. 2. Severe mitral regurgitation. 3. Severe two-vessel coronary artery disease. 4. 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 5. Hypertension. 6. Hyperlipidemia. 7. Cigarette abuse. 8. History of colostomy and colostomy recent reversal. 9. Alcohol use, three beers per day. 10. Recent pneumonia. PROCEDURE: 1. Median sternotomy. 2. Mitral valve repair using a 30 mm Bramasoltronic CG annuloplasty band. 3. Coronary artery bypass graft x2 with left internal mammary artery anastomosed to left anterior descending with patch arterioplasty of this target, reverse saphenous vein graft anastomosed to the posterior descending artery on cardiopulmonary bypass. 4. Application of platelet rich and platelet poor platelet gel. 5. Endoscopic vein harvesting from the right lower extremity. 6. Intraoperative transesophageal echocardiography. ANESTHESIA: General endotracheal anesthesia. SURGEON: Kyler Gaxiola MD CATTLE FARMER: Brody Ojeda, physician entry level assistant manager. INDICATION FOR PROCEDURE: Augusto Hansen is a 67-year-old male with past medical history significant for hypertension, hyperlipidemia, COPD, tobacco abuse, and diverticulitis status post sigmoidectomy and colostomy formation with reversal. A few weeks ago, he developed shortness of breath and he was treated for pneumonia by his primary care provider. However, his shortness of breath continued to increase and developed bilateral lower extremity edema and fatigue. He was noted to have EKG changes and was referred to Cardiology Services. Transthoracic echocardiogram revealed an ejection fraction of approximately 50% with moderate to severe mitral regurgitation. Left heart catheterization was then subsequently performed which revealed an 80% proximal LAD lesion followed by approximately 50% mid LAD lesion. The right coronary artery was occluded. There was a collateral filling of the posterior descending artery. Because of his moderate to severe mitral regurgitation, patient was referred for coronary artery bypass grafting and mitral valve surgery. FINDING OF THE OPERATION: Intraoperative transesophageal echocardiography indeed revealed moderate to severe mitral regurgitation. The nature of the jet was mostly central. There was significant mitral annular dilatation. Patient's tissues were extremely friable. He required multiple blood product transfusion throughout the surgery. LAD was open for a good distance of approximately 1-1.5 cm through the mid plaque. Patch arterioplasty using the VINES was performed. The posterior descending artery was 1.5 mm in diameter. The mitral valve was inspected and the leaflet appeared to be okay. There was no significant subvalvular problem. The mitral valve was addressed using an annuloplasty band. Post pump intraoperative transesophageal echocardiography revealed good left ventricular contractility. There was only trace mitral regurgitation. The mean gradient across the mitral valve was only 2 mmHg. DESCRIPTION OF PROCEDURE: After informed consent was obtained, patient was brought into the operating room and was placed in supine position. General endotracheal anesthesia was administered without any complication. Entire chest, abdomen, groin, and both lower extremities were prepped and draped in sterile fashion. Time-out was called. Patient identity and the procedure was confirmed. Median sternotomy incision was made. Sternum was opened using the saw. Hemostasis was obtained using electrocautery. Dissection of the left internal mammary artery was performed simultaneous to the harvesting of the saphenous vein using the endoscopic technique from the right lower extremity. This was performed by identifying the vein at the level of the knee. Subcutaneous tissue was insufflated using CO2. Proximal and distal dissection of the vein was performed using endoscope. Stab wound in the groin was made and the vein was grasped using hemostat. Using scissors, the vein was transected and was subsequently delivered through the wound. Proximally and distally, the vein was ligated. Branches of the vein were also individually ligated and were prepared for usage as a conduit. Pericardial well was created. Patient was systemically heparinized. Aorta was cannulated using a 22-British aortic cannula. The right angle 24-British venous cannula was inserted directly into the superior vena cava. A 34-British right angle venous cannula was inserted into the inferior vena cava. Patient was hooked up to the cardiopulmonary bypass. Left internal mammary artery was taken down and was prepared for anastomosis. Cardiopulmonary bypass was initiated. Distal targets were marked. Heart net and phrenic nerve protector were positioned. Systemic cooling as well as topical cooling was applied. Cardioplegia needle was inserted into the root of the aorta. Aorta was crossclamped and heart was arrested using cold blood cardioplegia administered into the root of the aorta. Cardioplegia was administered approximately every 20-40 minutes. After the heart was arrested, the first target bypass was the posterior descending artery. The vessel was opened and it was 1.5 mm in diameter. Using 7-0 Prolene suture and saphenous vein, an end-to-side anastomosis of the vein to this target was performed in a continuous fashion. Sutures were tied down and there was good flow through the anastomotic sites. Vein graft was measured and was cut. Next, target bypass was the left anterior descending artery. The vessel was opened. The arteriotomy was extended through the plaque in the midportion of the LAD. Next, using 7-0 Prolene suture and left internal mammary artery, an end-to-side anastomosis of the VINES to the LAD with patch arterioplasty of this target was performed in a continuous fashion. Sutures were tied down and there was good flow. The bulldog clamp was then reapplied to the mammary pedicle. Mammary pedicle was secured to epicardium using 6-0 Prolene suture x2. A tear in the pericardium was created for the mammary. Pericardial sac was saturated using CO2 at 10 L/minute. Next, the left atriotomy was created along the [place] groove. Exposure of the mitral valve was then obtained using Rigo retractor. After inspection of the valve, we decided to proceed with the repair of the valve with the Medtronic CG band. The intertrigonal distance along the posterior leaflet of the mitral valve was then reamed using 2-0 Ethibond stitches. Total of 11 stitches were placed. The valve was then sized. The anterior leaflet as well as the intertrigonal distance was measured. We decided to use a 30 mm Medtronic CG band. The sutures were then passed through the CG band and the band was then seated. Sutures were then individually tied, cut, and removed. The saline test was then performed on patient and the valve appeared to have excellent competence. Warming of the patient was initiated. Left atriotomy was then closed using 3-0 Prolene suture placed in running fashion. An opening was left along the suture line using the absence pickups for passive venting purposes. De-airing of the heart was then performed. Aortic cross-clamp was then removed. Bulldog clamp from the left internal mammary artery pedicle was also removed. Partial occluding clamp was applied to the ascending aorta. Single aortotomy was created using 4.5 mm aortic punch. Single proximal anastomosis of the vein graft to the ascending aorta was performed using 6-0 Prolene suture in an end-to-side fashion. The vein graft was occluded using bulldog clamp. Partial occluding clamp was then subsequently removed. Vein grafts were de-aired and flow to the distal anastomotic site was established. Distal as well as the proximal anastomotic site was checked for bleeding. When we were ultimately content with that, the heart was resuscitated. When we were happy with the air situation, left atriotomy suture line was tied down. Ventilation was then initiated and patient was weaned off cardiopulmonary bypass without difficulty. Venous cannulas were removed. Heparin was reversed using protamine sulfate. After entire protamine was in, aortic cannula was also removed. Pericardial sac was approximated using silk sutures. A 36-British right-angled chest tube was placed in the left and another one in the right pleural spaces. A 36-British straight chest tube was also placed in the anterior mediastinum and was brought out through a separate skin site and were secured. The sternum was then closed using 8 stainless steel wires placed in simple interrupted fashion. Prior to the closure of the sternum, platelet rich platelet gel which was made from patient's own whole blood with me in the room present was applied to the sternum and the sternal wall. After the sternal closure, fascia was approximated using 0 PDS. Subcutaneous tissue was treated with platelet poor platelet gel and was then closed using 2-0 Vicryl. Skin was approximated in subcuticular stitches. Saphenous vein harvest site was also closed in two layers and skin was approximated in subcuticular stitches. Patient had severely emphysematous lung. He was ultimately transferred to the intensive care unit in stable condition. Kyler Gaxiola M.D. Dict: 09/04/2018 22:54:32 Trans: 09/05/2018 01:49:14 CC1: Kyler Gaxiola M.D. CC2: Dr. Clarissa Soto CC3: Dr. Martinez Canseco Electronically signed by [facility] Conversion Eligibility Analyst Cerner at 07/05/2022 8:36 PM CDT documented in this encounter Plan of Treatment Upcoming Encounters Date Type Department Care Team (Late st Contact Info) Description 10/27/2024 10:00 AM EDT Appointment [facility] [address] [place] [address] [place] [address] [place] [address] [address] [place], [place] [id number] 10/29/2024 10:30 AM EDT Audio - Telemedicine [facility] [address] [place] [address] [address] [place] [address] Adalberto Painting MD [address] [facility] [address] [address] documented as of this encounter Visit Diagnoses Not on filedocumented in this encounter Care Teams Clinic Clerk Relationship Specialty Start Date End Date Martinez Canseco MD [address] [place] [address] PCP - General Family Medicine 10/05/22 documented as of this encounter
--- OUTSIDE RECORDS SUMMARY | 2024-10-14 15:49 | XMS_ITS | Encounter Summary ---
Author Organization [employer] ([place], [place], [place], [place]) Address [address] [place] [address] Care Team Providers Care Computational Sciences Professor Name Role Phone Martinez Canseco MD Primary Care Provider [phone] Encounter Details Date Type Department Care Team (Late st Contact Info) Description 09/05/2018 Transcribed Document [facility] [place] [address] [place] [address] ProviderIvan MD [address] [place] [address] Social History Tobacco Use Types Packs/Day Years Used Date Smoking Tobacco: Never Assessed Sex and Gender Information Value Date Recorded Sex Assigned at Male 09/13/2021 8:33 PM CDT Legal Sex Male 8:33 PM CDT Gender Identity Male 09/13/2021 8:33 PM CDT Sexual Orientation Not on file documented as of this encounter Miscellaneous Notes * Cerner Conversion Note - Ivan ProviderMD - 09/05/2018 5:00 AM CDT Chart Check - Review Order Profile Entered On: 09/05/2018 6:12 EDT Performed On: 09/05/2018 5:00 EDT by Emmie Slater, Rn Chart Check Powerplans Initiated/Discontinued as Appropriate : Yes All Active Orders Reviewed : Yes Emmie Slater, Rn - 09/05/2018 6:12 EDT documented in this encounter Plan of Treatment Upcoming Encounters Date Type Department Care Team (Late st Contact Info) Description 10/27/2024 10:00 AM EDT Appointment [facility] 1 [place] [id number] Adalberto Painting MD [address] [facility] [address] [place] [address] 10/29/2024 10:30 AM EDT Audio - Telemedicine [facility] [address] [place] [address] [address] [place] [phone] Adalberto Painting MD [address] [facility] [address] [place] [address] documented as of this encounter Visit Diagnoses Not on filedocumented in this encounter Care Teams Computational Sciences Professor Relationship Specialty Start Date End Date Martinez Canseco MD [address] [place] [address] PCP - General Family Medicine 10/05/22 documented as of this encounter
--- OUTSIDE RECORDS SUMMARY | 2024-10-14 15:49 | XMS_ITS | Encounter Summary ---
Author Organization [employer] ([place], [place], [place], [place]) Address [address] [place] [address] Care Team Providers Care Autistic Teacher Name Role Phone Martinez Canseco MD Primary Care Provider [phone] Encounter Details Date Type Department Care Team (Late st Contact Info) Description 09/04/2018 Transcribed Document [facility] [place] [address] [place] [address] ProviderIvan MD [address] [place] [address] Social History Tobacco Use Types Packs/Day Years Used Date Smoking Tobacco: Never Assessed Sex and Gender Information Value Date Recorded Sex Assigned at Male 09/13/2021 8:33 PM CDT Legal Sex Male 8:33 PM CDT Gender Identity Male 09/13/2021 8:33 PM CDT Sexual Orientation Not on file documented as of this encounter Miscellaneous Notes * Cerner Conversion Note - Ivan ProviderMD - 09/04/2018 10:48 PM CDT Height and Weight, Routine Entered On: 09/05/2018 4:17 EDT Performed On: 09/04/2018 22:48 EDT by Emmie Slater Rn Height and Weight, Routine Routine Weight Source : Bed scale Routine Weight Entry Format : Metric Routine Weight, Kilograms : 101.9 kg(Converted to: 224 lb 10 oz) Routine Weight Calculation : 101.9 kg Height Source : Stated Height Entry Format : [place] Height, Feet : 6 ft Height, Inches : 1 Inch Clinical Height : 185.42 cm Body Surface Area (BSA), Routine : 2.26 m2 Body Mass Index (BMI), Routine : 29.64 kg/m2 Emmie Slater, Rn - 09/05/2018 4:17 EDT documented in this encounter Plan of Treatment Upcoming Encounters Date Type Department Care Team (Late st Contact Info) Description 10/27/2024 10:00 AM EDT Appointment [facility] 1 [place] [phone] Adalberto Painting MD [address] [place] [address] [address] [place] [address] 10/29/2024 10:30 AM EDT Audio - Telemedicine [facility] [address] [place] [address] [address] [place] [phone] Adalberto Painting MD [address] [place] [address] [address] [place] [id number] documented as of this encounter Visit Diagnoses Not on filedocumented in this encounter Care Teams Autistic Teacher Relationship Specialty Start Date End Date Martinez Canseco MD [address] [place] [address] PCP - General Family Medicine 10/05/22 documented as of this encounter
--- OUTSIDE RECORDS SUMMARY | 2024-10-14 15:49 | XMS_ITS | Encounter Summary ---
Author Organization [employer] ([place], [place], [place], [place]) Address [address] [place] [address] Care Team Providers Care Cell Coverer Name Role Phone Martinez Canseco MD Primary Care Provider [phone] Encounter Details Date Type Department Care Team (Late st Contact Info) Description 09/13/2018 Transcribed Document [facility] [place] Family Medicine [address] [place] [address] ProviderIvan MD [address] [place] [address] Social History Tobacco Use Types [...] Conversion Note - Ivan Nino MD - 09/13/2018 12:32 PM CDT Patient Education Materials Follows: Hypertension Hypertension is another name for high blood pressure. High blood pressure forces your heart to work harder to pump blood. This can cause problems over time. There are two numbers in a blood pressure reading. There is a top number (systolic) over a bottom number (diastolic). It is best to have a blood pressure below 120/80. Healthy choices can help lower your blood pressure. You may need medicine to help lower your blood pressure if: ??? Your blood pressure cannot be lowered with healthy choices. ??? Your blood pressure is higher than 130/80. Follow these instructions at home: Eating and drinking ??? If directed, follow the DASH eating plan. This diet includes: ? Filling half of your plate at each meal with fruits and vegetables. ? Filling one quarter of your plate at each meal with whole grains. Whole grains include whole wheat pasta, brown rice, and whole grain bread. ? Eating or drinking low-fat dairy products, such as skim milk or low-fat yogurt. ? Filling one quarter of your plate at each meal with low-fat (lean) proteins. Low-fat proteins include fish, skinless chicken, eggs, beans, and tofu. ? Avoiding fatty meat, cured and processed meat, or chicken with skin. ? Avoiding premade or processed food. ??? Eat less than 1,500 mg of salt (sodium) a day. ??? Limit alcohol use to no more than 1 drink a day for non women and 2 drinks a day for men. One drink equals 12 oz of beer, 5 oz of wine, or 1? oz of hard liquor. Lifestyle ??? Work with your doctor to stay at a healthy weight or to lose weight. Ask your doctor what the best weight is for you. ??? Get at least 30 minutes of exercise that causes your heart to beat faster (aerobic exercise) most days of the week. This may include walking, swimming, or biking. ??? Get at least 30 minutes of exercise that strengthens your muscles (resistance exercise) at least 3 days a week. This may include lifting weights or pilates. ??? Do not use any products that contain nicotine or tobacco. This includes cigarettes and e-cigarettes. If you need help quitting, ask your doctor. ??? Check your blood pressure at home as told by your doctor. ??? Keep all follow-up visits as told by your doctor. This is important. Medicines ??? Take zyst-spd-gvmrkcv and prescription medicines only as told by your doctor. Follow directions carefully. ??? Do not skip doses of blood pressure medicine. The medicine does not work as well if you skip doses. Skipping doses also puts you at risk for problems. ??? Ask your doctor about side effects or reactions to medicines that you should watch for. Contact a doctor if: ??? You think you are having a reaction to the medicine you are taking. ??? You have headaches that keep coming back (recurring). ??? You feel dizzy. ??? You have swelling in your ankles. ??? You have trouble with your vision. Get help right away if: ??? You get a very bad headache. ??? You start to feel confused. ??? You feel weak or numb. ??? You feel faint. ??? You get very bad pain in your: ? Chest. ? Belly (abdomen). ??? You throw up (vomit) more than once. ??? You have trouble breathing. Summary ??? Hypertension is another name for high blood pressure. ??? Making healthy choices can help lower blood pressure. If your blood pressure cannot be controlled with healthy choices, you may need to take medicine. This information is not intended to replace advice given to you by your health care provider. Make sure you discuss any questions you have with your health care provider. Document Released: 08/21/2008 Document Revised: 01/31/2017 Document Reviewed: 01/31/2017 [email or web address] Interactive Patient Education ? 2019 P[employer]Y. Nutrition Heart-Healthy Eating Plan Many factors influence your heart health, including eating and exercise habits. Heart (coronary) risk increases with abnormal blood fat (lipid) levels. Heart-healthy meal planning includes limiting unhealthy fats, increasing healthy fats, and making other small dietary changes. This includes maintaining a healthy body weight to help keep lipid levels within a normal range. What is my plan? Your health care provider recommends that you: ??? Get no more than % of the total calories in your daily diet from fat. ??? Limit your intake of saturated fat to less than % of your total calories each day. ??? Limit the amount of cholesterol in your diet to less than mg per day. What types of fat should I choose? Choose healthy fats more often. Choose monounsaturated and polyunsaturated fats, such as olive oil and canola oil, flaxseeds, walnuts, almonds, and seeds. ??? Eat more omega-3 fats. Good choices include salmon, mackerel, sardines, tuna, flaxseed oil, and ground flaxseeds. Aim to eat fish at least two times each week. ??? Limit saturated fats. Saturated fats are primarily found in animal products, such as meats, butter, and cream. Plant sources of saturated fats include palm oil, palm kernel oil, and coconut oil. ??? Avoid foods with partially hydrogenated oils in them. These contain trans fats. Examples of foods that contain trans fats are stick margarine, some tub margarines, cookies, crackers, and other baked goods. What general guidelines do I need to follow? Check food labels carefully to identify foods with trans fats or high amounts of saturated fat. ??? Fill one half of your plate with vegetables and green salads. Eat 4?5 servings of vegetables per day. A serving of vegetables equals 1 cup of raw leafy vegetables, ? cup of raw or cooked cut-up vegetables, or ? cup of vegetable juice. ??? Fill one fourth of your plate with whole grains. Look for the word whole as the first word in the ingredient list. ??? Fill one fourth of your plate with lean protein foods. ??? Eat 4?5 servings of fruit per day. A serving of fruit equals one medium whole fruit, ? cup of dried fruit, ? cup of fresh, frozen, or canned fruit, or ? cup of 100% fruit juice. ??? Eat more foods that contain soluble fiber. Examples of foods that contain this type of fiber are apples, broccoli, carrots, beans, peas, and barley. Aim to get 20?30 g of fiber per day. ??? Eat more home-cooked food and less restaurant, buffet, and fast food. ??? Limit or avoid alcohol. ??? Limit foods that are high in starch and sugar. ??? Avoid fried foods. ??? Cook foods by using methods other than frying. Baking, boiling, grilling, and broiling are all great options. Other fat-reducing suggestions include: ? Removing the skin from poultry. ? Removing all visible fats from meats. ? Skimming the fat off of stews, soups, and gravies before serving them. ? Steaming vegetables in water or broth. ??? Lose weight if you are overweight. Losing just 5?10% of your initial body weight can help your overall health and prevent diseases such as diabetes and heart disease. ??? Increase your consumption of nuts, legumes, and seeds to 4?5 servings per week. One serving of dried beans or legumes equals ? cup after being cooked, one serving of nuts equals 1? ounces, and one serving of seeds equals ? ounce or 1 tablespoon. ??? You may need to monitor your salt (sodium) intake, especially if you have high blood pressure. Talk with your health care provider or dietitian to get more information about reducing sodium. What foods can I eat? Grains Breads, including Faroese, white, carolyn, wheat, raisin, rye, oatmeal, and [place]an. Tortillas that are neither fried nor made with lard or trans fat. Low-fat rolls, including hotdog and hamburger buns and [place] muffins. Biscuits. Muffins. Waffles. Pancakes. Light popcorn. Whole-grain cereals. Flatbread. Crystal toast. Pretzels. Breadsticks. Rusks. Low-fat snacks and crackers, including oyster, saltine, matzo, jordyn, animal, and rye. Rice and pasta, including brown rice and those that are made with whole wheat. Vegetables All vegetables. Fruits All fruits, but limit coconut. Meats and Other Protein Sources Lean, well-trimmed beef, veal, pork, and patton. Chicken and turkey without skin. All fish and shellfish. Wild duck, rabbit, pheasant, and venison. Egg whites or low-cholesterol egg substitutes. Dried beans, peas, lentils, and tofu.?Seeds and most nuts. Dairy Low-fat or nonfat cheeses, including ricotta, string, and mozzarella. Skim or 1% milk that is liquid, powdered, or evaporated. Buttermilk that is made with low-fat milk. Nonfat or low-fat yogurt. Beverages Mineral water. Diet carbonated beverages. Sweets and Desserts Sherbets and fruit ices. Honey, jam, marmalade, jelly, and syrups. Meringues and gelatins. Pure sugar candy, such as hard candy, jelly beans, gumdrops, mints, marshmallows, and small amounts of dark chocolate. Joe food cake. Eat all sweets and desserts in moderation. Fats and Oils Nonhydrogenated (trans-free) margarines. Vegetable oils, including soybean, sesame, sunflower, olive, peanut, safflower, corn, canola, and cottonseed. Salad dressings or mayonnaise that are made with a vegetable oil. Limit added fats and oils that you use for cooking, baking, salads, and as spreads. Other [place] powder. Coffee and tea. All seasonings and condiments. The items listed above may not be a complete list of recommended foods or beverages. Contact your dietitian for more options. What foods are not recommended? Grains Breads that are made with saturated or trans fats, oils, or whole milk. Croissants. Butter rolls. Cheese breads. Sweet rolls. Donuts. Buttered popcorn. Taylor mein noodles. High-fat crackers, such as cheese or butter crackers. Meats and Other Protein Sources Fatty meats, such as hotdogs, short ribs, sausage, spareribs, gill, ribeye roast or steak, and mutton. High-fat deli meats, such as salami and bologna. Caviar. Domestic duck and goose. Organ meats, such as kidney, liver, sweetbreads, brains, gizzard, chitterlings, and heart. Dairy Cream, sour cream, cream cheese, and creamed cottage cheese. Whole milk cheeses, including blue (shawnee), [place], Brie, Mark, Vietnamese, Havarti, Wallisian, cheddar, Camembert, and [place]. Whole or 2% milk that is liquid, evaporated, or condensed. Whole buttermilk. Cream sauce or high-fat cheese sauce. Yogurt that is made from whole milk. Beverages Regular sodas and drinks with added sugar. Sweets and Desserts Frosting. Pudding. Cookies. Cakes other than joe food cake. Candy that has milk chocolate or white chocolate, hydrogenated fat, butter, coconut, or unknown ingredients. Buttered syrups. Full-fat ice cream or ice cream drinks. Fats and Oils Gravy that has suet, meat fat, or shortening. [place] butter, hydrogenated oils, palm oil, coconut oil, palm kernel oil. These can often be found in baked products, candy, fried foods, nondairy creamers, and whipped toppings. Solid fats and shortenings, including gill fat, salt pork, lard, and butter. Nondairy cream substitutes, such as coffee creamers and sour cream substitutes. Salad dressings that are made of unknown oils, cheese, or sour cream. The items listed above may not be a complete list of foods and beverages to avoid. Contact your dietitian for more information. This information is not intended to replace advice given to you by your health care provider. Make sure you discuss any questions you have with your health care provider. Document Released: 12/12/2008 Document Revised: 09/22/2016 Document Reviewed: 08/27/2014 [email or web address] Interactive Patient Education ? 2019 PAAY. Pulmonary Medicine Home Oxygen Use, Adult When a medical condition keeps you from getting enough oxygen, your health care provider may instruct you to take extra oxygen at home. Your health care provider will let you know: ??? When to take oxygen. ??? For how long to take oxygen. ??? How quickly oxygen should be delivered (flow rate), in liters per minute (LPM or L/M). Home oxygen can be given through: ??? A mask. ??? A nasal cannula. This is a device or tube that goes in the nostrils. ??? A transtracheal catheter. This is a small, flexible tube placed in the trachea. ??? A tracheostomy. This is a surgically made opening in the trachea. These devices are connected with tubing to an oxygen source, such as: ??? A tank. Tanks hold oxygen in gas form. They must be replaced when the oxygen is used up. ??? A liquid oxygen device. This holds oxygen in liquid form. It must be replaced when the oxygen is used up. ??? An oxygen concentrator machine. This filters oxygen in the room. It uses electricity, so you must have a backup cylinder of oxygen in case the power goes out. Supplies needed: To use oxygen, you will need: ??? A mask, nasal cannula, transtracheal catheter, or tracheostomy. ??? An oxygen tank, a liquid oxygen device, or an oxygen concentrator. ??? The tape that your health care provider recommends (optional). If you use a transtracheal catheter and your prescribed flow rate is 1 LPM or greater, you will also need a humidifier. Risks and complications ??? Fire. This can happen if the oxygen is exposed to a heat source, flame, or spark. ??? Injury to skin. This can happen if liquid oxygen touches your skin. ??? Organ damage. This can happen if you get too little oxygen. How to use oxygen Your health care provider will show you how to use your oxygen device. Follow her or his instructions. They may look something like this: 1. Wash your hands. 2. If you use an oxygen concentrator, make sure it is plugged in. 3. Place one end of the tube into the port on the tank, device, or machine. 4. Place the mask over your nose and mouth. Or, place the nasal cannula and secure it with tape if instructed. If you use a tracheostomy or transtracheal catheter, connect it to the oxygen source as directed. 5. Make sure the liter-flow setting on the machine is at the level prescribed by your health care provider. 6. Turn on the machine or adjust the knob on the tank or device to the correct liter-flow setting. 7. When you are done, turn off and unplug the machine, or turn the knob to OFF. How to clean and care for the oxygen supplies Nasal cannula ??? Clean it with a warm, wet cloth daily or as needed. ??? Wash it with a liquid soap once a week. ??? Rinse it thoroughly once or twice a week. ??? Replace it every 2?4 weeks. ??? If you have an infection, such as a cold or pneumonia, change the cannula when you get better. Mask ??? Replace it every 2?4 weeks. ??? If you have an infection, such as a cold or pneumonia, change the mask when you get better. Humidifier bottle ??? Wash the bottle between each refill: ? Wash it with soap and warm water. ? Rinse it thoroughly. ? Disinfect it and its top. ? Air-dry it. ??? Make sure it is dry before you refill it. Oxygen concentrator ??? Clean the air filter at least twice a week according to directions from your home medical equipment and service company. ??? Wipe down the cabinet every day. To do this: ? Unplug the unit. ? Wipe down the cabinet with a damp cloth. ? Dry the cabinet. Other equipment ??? Change any extra tubing every 1?3 months. ??? Follow instructions from your health care provider about taking care of any other equipment. Safety tips Fire safety tips ??? Keep your oxygen and oxygen supplies at least 5 ft away from sources of heat, flames, and wilkins at all times. ??? Do not allow smoking near your oxygen. Put up no smoking signs in your home. ??? Do not use materials that can burn (are flammable) while you use oxygen. ??? When you go to a restaurant with portable oxygen, ask to be seated in the nonsmoking section. ??? Keep a fire extinguisher close by. Let your fire department know that you have oxygen in your home. ??? Test your home smoke detectors regularly. General safety tips ??? If you use an oxygen cylinder, make sure it is in a stand or secured to an object that will not move (fixed object). ??? If you use liquid oxygen, make sure its container is kept upright. ??? If you use an oxygen concentrator: ? Tell your electric company. Make sure you are given priority service in the event that your power goes out. ? Avoid using extension cords, if possible. Follow these instructions at home: ??? Use oxygen only as told by your health care provider. ??? Do not use alcohol or other drugs that make you relax (sedating drugs) unless instructed. They can slow down your breathing rate and make it hard to get in enough oxygen. ??? Know how and when to order a refill of oxygen. ??? Always keep a spare tank of oxygen. Plan ahead for holidays when you may not be able to get a prescription filled. ??? Use water-based lubricants on your lips or nostrils. Do not use oil-based products like petroleum jelly. ??? To prevent skin irritation on your cheeks or behind your ears, tuck some gauze under the tubing. Contact a health care provider if: ??? You get headaches often. ??? You have shortness of breath. ??? You have a lasting cough. ??? You have anxiety. ??? You are sleepy all the time. ??? You develop an illness that affects your breathing. ??? You cannot exercise at your regular level. ??? You are restless. ??? You have difficult or irregular breathing, and it is getting worse. ??? You have a fever. ??? You have persistent redness under your nose. Get help right away if: ??? You are confused. ??? You have blue lips or fingernails. ??? You are struggling to breathe. This information is not intended to replace advice given to you by your health care provider. Make sure you discuss any questions you have with your health care provider. Document Released: 05/25/2004 Document Revised: 11/01/2016 Document Reviewed: 09/26/2016 [email or web address] Interactive Patient Education ? 2019 PAAY. Incentive Spirometer An incentive spirometer is a tool that measures how well you are filling your lungs with each breath. This tool can help keep your lungs clear and active. Taking long, deep breaths may help reverse or decrease the chance of developing breathing (pulmonary) problems, especially infection, following: ??? Surgery of the chest or abdomen. ??? Surgery if you have a history of smoking or a lung problem. ??? A long period of time when you are unable to move or be active. If the spirometer includes an indicator to show your best effort, your health care provider or respiratory therapist will help you set a goal. Keep a log of your progress if directed by your health care provider. What are the risks? Breathing too quickly may cause dizziness or cause you to pass out. Take your time so you do not get dizzy or lightheaded. ??? If you are in pain, you may need to take or ask for pain medicine before doing incentive spirometry. It is harder to take a deep breath if you are having pain. How to use your incentive spirometer 1. Sit on the edge of your bed if possible, or sit up as far as you can in bed or on a chair. 2. Hold the incentive spirometer in an upright position. 3. Breathe out normally. 4. Place the mouthpiece in your mouth and seal your lips tightly around it. 5. Breathe in slowly and as deeply as possible, raising the piston or the ball toward the top of the column. 6. Hold your breath for 3?5 seconds or for as long as possible. Allow the piston or ball to fall to the bottom of the column. 7. Remove the mouthpiece from your mouth and breathe out normally. 8. The spirometer may include an indicator to show your best effort. Use the indicator as a goal to work toward during each repetition. 9. Rest for a few seconds and repeat this at least 10 times, every 1?2 hours when you are awake. Take your time and take a few normal breaths between deep breaths. Breathing too quickly may cause dizziness or cause you to pass out. Take your time so you do not get dizzy or lightheaded. 10. After each set of 10 deep breaths, practice coughing to be sure your lungs are clear. If you had a surgical cut (incision) made during surgery, support your incision when coughing by placing a pillow or rolled-up towel firmly against it. Once you are able to get out of bed, walk around indoors and cough well. You may stop using the incentive spirometer when instructed by your health care provider. Contact a health care provider if: ??? You are having difficulty using the spirometer. ??? You have trouble using the spirometer as often as instructed. ??? Your pain medicine is not giving enough relief while using the spirometer. ??? You have a fever. ??? You develop shortness of breath. Get help right away if: ??? You develop a cough with bloody sputum. ??? You develop worsening pain, redness, or discharge at or near the incision site. This information is not intended to replace advice given to you by your health care provider. Make sure you discuss any questions you have with your health care provider. Document Released: 07/16/2007 Document Revised: 11/27/2016 Document Reviewed: 10/12/2014 [email or web address] Interactive Patient Education ? 2018 [email or web address] Surgery Coronary Artery Bypass Grafting, Care After This sheet gives you information about how to care for yourself after your procedure. Your doctor may also give you more specific instructions. If you have problems or questions, contact your doctor. Follow these instructions at home: Medicines ??? Take qkli-kig-titxrtt and prescription medicines only as told by your doctor. Do not stop taking medicines or start any new medicines unless your doctor says it is okay. ??? If you were prescribed an antibiotic medicine, take it as told by your doctor. Do not stop taking the antibiotic even if you start to feel better. ??? Do not drive or use heavy machinery while taking prescription pain medicine. Incision care ??? Follow instructions from your doctor about how to take care of your incisions. Make sure you: ? Wash your hands with soap and water before you change your bandage (dressing). If you cannot use soap and water, use hand soda room operator. ? Change your dressing as told by your doctor. ? Leave stitches (sutures), skin glue, or skin tape (adhesive) strips in place. They may need to stay in place for 2 weeks or longer. If tape strips get loose and curl up, you may trim the loose edges. Do not remove tape strips completely unless your doctor says it is okay. ??? Make sure the incisions are clean, dry, and protected. ??? Check your incision areas every day for signs of infection. Check for: ? Redness, swelling, or pain. ? Fluid or blood. ? Warmth. ? Pus or a bad smell. ??? If cuts were made in your legs: ? Avoid crossing your legs. ? Avoid sitting for long periods of time. Change positions every 30 minutes. ? Raise (elevate) your legs when you are sitting. Bathing ??? Do not take baths, swim, or use a hot tub until your doctor says it is okay. ??? Only take sponge baths. Pat the incisions dry. Do not rub the incisions to dry. ??? Ask your doctor when you can shower. Eating and drinking ??? Eat foods that are high in fiber, such as raw fruits and vegetables, whole grains, beans, and nuts. Meats should be lean cut. Avoid canned, processed, and fried foods. This can help prevent constipation. This is also a recommended part of a heart-healthy diet. ??? Drink enough fluid to keep your urine clear or pale yellow. ??? Limit alcohol intake to no more than 1 drink a day for non women and 2 drinks a day for men. One drink equals 12 oz of beer, 5 oz of wine, or 1? oz of hard liquor. Activity ??? Rest and limit your activity as told by your doctor. You may be told to: ? Stop any activity right away if you have chest pain, shortness of breath, irregular heartbeats, or dizziness. Get help right away if you have any of these symptoms. ? Move around often for short periods or take short walks as told by your doctor. Slowly increase your activities. You may need physical therapy or cardiac rehabilitation. ? Avoid lifting, pushing, or pulling anything that is heavier than 10 lb (4.5 kg) for at least 6 weeks or as told by your doctor. ??? Do not drive until your doctor says it is okay. ??? Ask your doctor when you can go back to work. ??? Ask your doctor when you can be sexually active. General instructions ??? Do not use any products that contain nicotine or tobacco, such as cigarettes and e-cigarettes. If you need help quitting, ask your doctor. ??? Take 2?3 deep breaths every few hours during the day while you get better. This helps expand your lungs and prevent complications. ??? If you were given a device called an incentive spirometer, use it several times a day to practice deep breathing. Support your chest with a pillow or your arms when you take deep breaths or cough. ??? Wear compression stockings as told by your doctor. These stockings help to prevent blood clots and reduce swelling in your legs. ??? Weigh yourself every day. This helps to see if your body is holding (retaining) fluid that may make your heart and lungs work harder. ??? Keep all follow-up visits as told by your doctor. This is important. Contact a doctor if: ??? You have more redness, swelling, or pain around any cut. ??? You have more fluid or blood coming from any cut. ??? Any cut feels warm to the touch. ??? You have pus or a bad smell coming from any cut. ??? You have a fever. ??? You have swelling in your ankles or legs. ??? You have pain in your legs. ??? You gain 2 or more pounds (0.9 kg) a day. ??? You feel sick to your stomach (nauseous) or throw up (vomit). ??? You have watery poop (diarrhea). Get help right away if: ??? You have chest pain that goes to your jaw or arms. ??? You are short of breath. ??? You have a fast or irregular heartbeat. ??? You notice a clicking in your breastbone (sternum) when you move. ??? You feel numb or weak in your arms or legs. ??? You feel dizzy or light-headed. Summary ??? After the procedure, it is common to have pain or discomfort in the incision areas. ??? Do not take baths, swim, or use a hot tub until your health care provider approves. ??? Slowly increase your activities. You may need physical therapy or cardiac rehabilitation. ??? Weigh yourself every day. This helps to see if your body is holding (retaining) fluid that may make your heart and lungs work harder. This information is not intended to replace advice given to you by your health care provider. Make sure you discuss any questions you have with your health care provider. Document Released: 03/10/2014 Document Revised: 04/17/2017 Document Reviewed: 04/17/2017 Elsevier Interactive Patient Education ? 2019 [email or web address] documented in this encounter Plan of Treatment Upcoming Encounters Date Type Department Care Team (Late st Contact Info) Description 10/27/2024 10:00 AM EDT Appointment [facility] 1 [place] [phone] Adalberto Painting MD [address] [place] [address] [address] [place] [address] 10/29/2024 10:30 AM EDT Audio - Telemedicine [facility] [address] [place] [address] [address] [place] [address] Adalberto Painting MD [address] [facility] [address] [place] [address] documented as of this encounter Visit Diagnoses Not on filedocumented in this encounter Care Teams Cell Coverer Relationship Specialty Start Date End Date Martinez Canseco MD [address] [place] [address] PCP - General Family Medicine 10/05/22 documented as of this encounter
--- OUTSIDE RECORDS SUMMARY | 2024-10-14 15:49 | XMS_ITS | Encounter Summary ---
Author Organization [employer] ([place], [place], [place], [place]) Address [address] [place] [address] Care Team Providers Care Blocklayer Name Role Phone Martinez Canseco MD Primary Care Provider [phone] Encounter Details Date Type Department Care Team (Late st Contact Info) Description 09/04/2018 Transcribed Document [facility] [place] [address] [place] [address] ProviderIvan MD [address] [place], [place] [address] Social History Tobacco Use Types Packs/Day Years [...] Ivan ProviderMD - 09/04/2018 10:48 PM CDT Evaluation, Physical Therapy Entered On: 09/07/2018 13:28 EDT Performed On: 09/07/2018 11:03 EDT by LESLYE BRASHER, ARON General Information, PT Visit Type, PT : Initial evaluation Patient Orders : Order Date Order Ordering 09/04/2018 22:48 Consult to Physical Therapy Ordered By: ESVIN BUTTS MD-CAT Active Diagnoses : 09/05/2018 00:00 Atherosclerotic heart disease of [place] coronary artery without angina pectoris 09/05/2018 00:00 Chronic obstructive pulmonary disease, unspecified 09/05/2018 00:00 Diverticulitis of intestine, part unspecified, without perforation or abscess without bleeding 09/05/2018 00:00 Essential (primary) hypertension 09/05/2018 00:00 Hyperlipidemia, unspecified 09/05/2018 00:00 Nicotine dependence unspecified, with withdrawal 09/05/2018 00:00 Nonrheumatic mitral (valve) insufficiency 09/05/2018 00:00 Other specified health status 09/05/2018 00:00 Pneumonia, unspecified organism 09/05/2018 00:00 Unstable angina Therapy Diagnosis, PT : Decreased mobility due to CABG/MVR Onset of Problem, PT : 09/02/2018 EDT Admission Date : 09/02/2018 14:21 Co-treated by, PT : Occupational Therapist Personal Devices : Personal Devices No Devices Recorded Assistive Devices : Assistive Devices No Devices Recorded Precautions in Place : Fall prevention measures General Information Comment, PT : Pt here with CAD and mitral valve regurgitation. He had CABG , MVR, and EVH of RLE on 09-04-[address] Urias. He has a history of drinking 3 beers a day, smoker, CAD, HTN, PNA, COPD. LESLYE BRASHER, PT - 09/07/2018 13:20 EDT General Status Patient Received Status : Supine in bed Treatment Start Time : 09/07/2018 10:49 EDT Patient Left Status : Up in chair, RN/PCT informed, All needs met and within reach Treatment End Time : 09/07/2018 11:03 EDT Treatment Time : 14 Minute(s) Actual Treatment Time : 14 Minute(s) LESLYE BRASHER, PT - 09/07/2018 13:20 EDT History and Environment Living Situation, Therapy : Home Patient Lives With : Alone Persons Assisting Patient at Home : Alone Professional Skilled Services : None Persons Providing Information : Patient Home Equipment Therapy, PT : None Home Setup : One story Stairs : Yes Stair Location(s) : Outside Outside Stairs, Number of Steps : 1 LESLYE BRASHER, PT - 09/07/2018 13:20 EDT Prior Level of Function PT GRID Prior LOF Ambulation, Household : Independent Prior LOF Ambulation, Community : Independent Prior LOF Bed Mobility : Independent Prior LOF Toileting : Independent Prior LOF Transfer : Independent LESLYE BRASHER, PT - 09/07/2018 13:20 EDT Upper Extremity Right UE Active ROM : WF Right UE Strength : L Left UE Active ROM : WFL Left UE Strength : WFL LESLYE BRASHER, PT - 09/07/2018 13:20 EDT Lower Extremity RLE Active ROM : WFL Right LE Strength : [facility] LLE Active ROM : WF Left LE Strength : WF ANSHU LESLYE, PT - 09/07/2018 13:20 EDT Functional Mobility Mobility Grid Supine to Sit : Rehab Moderate assistance Sit to Stand : Rehab Moderate assistance Bed to Chair : Rehab Moderate assistance Stand to Sit : Rehab Moderate assistance (Comment: of 2 [LESLYE BRASHER, PT - 09/07/2018 13:20 EDT] ) Gait Training/Assessment, PT Weight Bearing Status Maintained : Yes Weight Bearing Status : Full Gait Assistance Level : Assist, moderate (Comment: of 2 [LESLYE BRASHER, PT - 09/07/2018 13:20 EDT] ) Walking Distance : 5 steps to pivot from bed to chair. Ambulatory Devices : Gait belt Gait Deviations : No Gait Training Comment : Pt did well, mostly needing Mod A of 2 so that he would not push up hard with his arms and to protect all lines. Still has SWAN line in place. LESLYE BRASHER, PT - 09/07/2018 13:20 EDT Activity Tolerance, PT Activity Comment : Good for first time OOB since surgery LESLYE BRASHER, PT - 09/07/2018 13:20 EDT Cognition Assessment, PT Orientation : Oriented x 4 Safety/Judgment Comment : Good Follows Basic Command Assessment : Yes LESLYE BRASHER PT - 09/07/2018 13:20 EDT Edu Topics Physical Therapy Education Grid Balance Training : Needs further teaching Bed Mobility Training : Needs further teaching Gait Training : Needs further teaching Role of Physical Therapy : Verbalizes understanding Therapeutic Exercises : Needs further teaching Transfer Training : Needs further teaching LESLYE BRASHER, PT - 09/07/2018 13:20 EDT Indication Assesessment, PT Physical Therapy Indicated : Yes PT Problem List : Impaired, bed mobility, Impaired, coordination/proprioception, Impaired, endurance tolerance, Impaired, gait, Impaired, standing balance, Impaired, transfers Potential Barriers To Therapy : None evident Rehabilitation Potential : Good LESLYE BRASHER, PT - 09/07/2018 13:20 EDT Plan of Care, PT PT Tx Plan/Goals Established w Patient : Yes PT Frequency Rehab : Daily PT Duration Rehab : Fourteen days PT Treatments Planned : Balance training, Bed mobility training, Gait training, Therapeutic exercises, Transfer training LESLYE BRASHER, PT - 09/07/2018 13:20 EDT Short Term Goals Mobility/Bed Mobility STG PT Grid Goal #1 Goal #2 Activity : Supine to sit Sit to stand Assist : Assist, moderate Assist, moderate Equipment : Rail, bed Walker, front wheel Date to Meet : 09/14/2018 EDT 09/14/2018 EDT Goal Status : Initial goal Initial goal LESLYE BRASHER, PT - 09/07/2018 13:20 EDT LESLYE BRASHER, PT - 09/07/2018 13:20 EDT Ambulation STG Grid Goal #1 Device : Walker, front wheel Distance : 150' Assist : Assist, minimal Date to Meet : 09/14/2018 EDT Goal Status : Intial Goal LESLYE BRASHER, PT - 09/07/2018 13:20 EDT Food Service Aide Goals Mobility/Bed Mobility LTG PT Grid Goal #1 Goal #2 Activity : Supine to sit Sit to stand Assist : Supervision or set-up Supervision or set-up Equipment : Rail, bed Walker, front wheel Date to Meet : 09/21/2018 EDT 09/21/2018 EDT Goal Status : Intial Goal Intial Goal LESLYE BRASHER, PT - 09/07/2018 13:20 EDT LESLYE BRASHER, PT - 09/07/2018 13:20 EDT Ambulation LTG Grid Goal #1 Device : Walker, front wheel Distance : 375' Assist : Supervision or set-up Date to Meet : 09/21/2018 EDT Goal Status : Intial Goal LESLYE BRASHER, PT - 09/07/2018 13:20 EDT Treatment Note Subjective Comment : Pt is very pleasant and appreciative of PT/OT coming to assist him to the chair. He hopes his lines are out tomorrow so he can begin to amb. Assessment : Good effort to do as much for himself, but wanted to use his upper body strength to move his body. Reminded pt to use legs to come to stand to stay within sternal precautions. Plan for Treatment : Cont PTx LESLYE BRASHER, PT - 09/07/2018 13:20 EDT Pain Assessment Pain Scaled Used : 0-10 Pain scale Pain Score During-Intervention : 0 Pain Comment : Pt reports, They're doing a good job of keeping me out of pain LESLYE BRASHER, PT - 09/07/2018 13:20 EDT Image 1 - Images currently included in the form version of this document have not been included in the text rendition version of the form. Anticipated Discharge Needs, OT/PT Anticipated Discharge to : Home, with home health (Comment: S1 [LESLYE BRASHER, PT - 09/07/2018 13:20 EDT] ) LESLYE BRASHER, PT - 09/07/2018 13:[address] [facility] PT Eval Low Complexity : 1 ANSHUTRACEYEN, PT - 09/07/2018 13:20 EDT Electronically signed by Destiny [facility] Conversion Steam Table Associate Cerner at 07/05/2022 8:40 PM CDT documented in this encounter Plan of Treatment Upcoming Encounters Date Type Department Care Team (Late st Contact Info) Description 10/27/2024 10:00 AM EDT Appointment [facility] 1 [place] [phone] Adalberto Painting MD [address] [place] [address] [place] [address] 10/29/2024 10:30 AM EDT Audio - Telemedicine [facility] [address] [place] [address] [place] [phone] [place] [address] [place] [address] [address] [place] [phone] documented as of this encounter Visit Diagnoses Not on filedocumented in this encounter Care Teams Blocklayer Relationship Specialty Start Date End Date Martinez Cansceo MD [address] [place] [address] PCP - General Family Medicine 10/05/22 documented as of this encounter
--- OUTSIDE RECORDS SUMMARY | 2024-10-14 15:49 | XMS_ITS | Encounter Summary ---
Author Organization [employer] ([place], [place], [place], [place]) Address [address] [place] [address] Care Team Providers Care Return Clerk Name Role Phone Martinez Canseco MD Primary Care Provider [phone] Encounter Details Date Type Department Care Team (Late st Contact Info) Description 09/04/2018 Transcribed Document [facility] [place] [address] [place] [address] ProviderIvan MD [address] [place], [place] [address] Social History Tobacco Use Types Packs/Day Years Used Date Smoking Tobacco: Never Assessed Sex and Gender Information Value Date Recorded Sex Assigned at Male 09/13/2021 8:33 PM CDT Legal Sex Male 8:33 PM CDT Gender Identity Male 09/13/2021 8:33 PM CDT Sexual Orientation Not on file documented as of this encounter Miscellaneous Notes * Cerner Conversion Note - Ivan Nino MD - 09/04/2018 10:48 PM CDT Pain Assessment Entered On: 09/07/2018 18:17 EDT Performed On: 09/07/2018 14:36 EDT by ARTHUR ALICEA RN Intervention Information: acetaminophen-oxyCODONE Performed by ARTHUR ALICEA RN on 09/07/2018 13:36:00 EDT acetaminophen-oxyCODONE,2Tab Oral,Pain (Moderate 4-6) Pain Assessment Pain Assessment : Follow-up assessment Pain Scale Goal : 3 Pain Scale Used : 0-10 Scale ARTHUR ALICEA RN - 09/07/2018 18:17 EDT Pain Scale Intensity : 1 ARTHUR ALICEA, RN - 09/07/2018 18:17 EDT Image 4 - Images currently included in the form version of this document have not been included in the text rendition version of the form. documented in this encounter Plan of Treatment Upcoming Encounters Date Type Department Care Team (Late st Contact Info) Description 10/27/2024 10:00 AM EDT Appointment [facility] 1 [place] [address] [place] [address] [place] [address] [address] [place] [address] 10/29/2024 10:30 AM EDT Audio - Telemedicine [facility] [address] [facility] [address] [place] [phone] [place] [address] [place] [address] [address] [place], [place] [phone] documented as of this encounter Visit Diagnoses Not on filedocumented in this encounter Care Teams Return Clerk Relationship Specialty Start Date End Date Martinez Canseco MD [address] [place] [address] PCP - General Family Medicine 10/05/22 documented as of this encounter
--- OUTSIDE RECORDS SUMMARY | 2024-10-14 15:49 | XMS_ITS | Encounter Summary ---
Author Organization [facility] ([place], [place], [place], [place]) Address [address] [place] [address] Care Team Providers Care Carbon Brush Maker Name Role Phone Martinez Canseco MD Primary Care Provider [phone] Encounter Details Date Type Department Care Team (Late st Contact Info) Description 09/11/2018 Transcribed Document [facility] [place] [address] [place] [address] ProviderIvan MD [address] [place] [address] Social History Tobacco Use Types Packs/Day Years Used Date Smoking Tobacco: Never Assessed Sex and Gender Information Value Date Recorded Sex Assigned at Male 09/13/2021 8:33 PM CDT Legal Sex Male 8:33 PM CDT Gender Identity Male 09/13/2021 8:33 PM CDT Sexual Orientation Not on file documented as of this encounter Miscellaneous Notes * Cerner Conversion Note - Historical ProviderMD - 09/11/2018 11:04 AM CDT Attempt to Treat, OT Entered On: 09/11/2018 12:36 EDT Performed On: 09/11/2018 11:04 EDT by PARK SOLIZ COTA Attempt to Treat Unable to Treat Due To : Patient on hold Inability to Treat Comment : Client needs to be on BIPAP for 3 hours per EDUARDO Arnett. Will f/u as schedule allows. PARK SOLIZ COTA - 09/11/2018 12:35 EDT documented in this encounter Plan of Treatment Upcoming Encounters Date Type Department Care Team (Late st Contact Info) Description 10/27/2024 10:00 AM EDT Appointment [facility] 1 [place] [address] Adalberto Painting MD 1401 [facility] [address] [place] [address] 10/29/2024 10:30 AM EDT Audio - Telemedicine [facility] [address] [facility] [address] [place] [address] [place] [address] [place] [address] [address] [place] [phone] documented as of this encounter Visit Diagnoses Not on filedocumented in this encounter Care Teams Carbon Brush Maker Relationship Specialty Start Date End Date Martinez Canseco MD [address] [place] [address] PCP - General Family Medicine 10/05/22 documented as of this encounter
--- OUTSIDE RECORDS SUMMARY | 2024-10-14 15:49 | XMS_ITS | Encounter Summary ---
Author Organization [employer] ([place], [place], [place], [place]) Address [address] [place] [address] Care Team Providers Care Clinical Social Work Therapist Name Role Phone Martinez Canseco MD Primary Care Provider Encounter Details Date Type Department Care Team (Late st Contact Info) Description 09/12/2018 Transcribed Document [facility] [place] [address] [place] [address] ProviderIvan MD [address] [place] [address] Social History Tobacco Use Types Packs/Day Years Used Date Smoking Tobacco: Never Assessed Sex and Gender Information Value Date Recorded Sex Assigned at Male 09/13/2021 8:33 PM CDT Legal Sex Male 8:33 PM CDT Gender Identity Male 09/13/2021 8:33 PM CDT Sexual Orientation Not on file documented as of this encounter Miscellaneous Notes * Cerner Conversion Note - Historical ProviderMD - 09/12/2018 5:00 AM CDT Height and Weight, Routine Entered On: 09/12/2018 4:23 EDT Performed On: 09/12/2018 5:00 EDT by Kalen El [facility] Height and Weight, Routine Routine Weight Source : Bed scale Routine Weight Entry Format : Flathead Routine Weight, Pounds : 211 lb Routine Weight, Ounces : 8 oz Routine Weight Calculation : 96.14 kg Height Source : Stated Height Entry Format : Flathead Height, Feet : 6 ft Height, Inches : 1 Inch Clinical Height : 185.42 cm Body Surface Area (BSA), Routine : 2.21 m2 Body Mass Index (BMI), Routine : 27.96 kg/m2 Kalen El, MOLDING LINE OPERATOR-[facility] - 09/12/2018 4:23 EDT Electronically signed by Ki Dixon Conversion Telecommunications Facility Examiner Cerner at 07/05/2022 8:26 PM CDT documented in this encounter Plan of Treatment Upcoming Encounters Date Type Department Care Team (Late st Contact Info) Description 10/27/2024 10:[address] [facility] 1 [place] [address] Adalberto Painting MD [address] [place] [address] [address] [place] [address] 10/29/2024 10:30 AM EDT Audio - Telemedicine [facility] [address] [place] [address] [place] [phone] [place] [address] [place] [address] [address] [place] [address] documented as of this encounter Visit Diagnoses Not on filedocumented in this encounter Care Teams Clinical Social Work Therapist Relationship Specialty Start Date End Date Martinez Canseco MD [address] [place] [address] PCP - General Family Medicine 10/05/22 documented as of this encounter
--- OUTSIDE RECORDS SUMMARY | 2024-10-14 15:49 | XMS_ITS | Encounter Summary ---
Author Organization [employer] ([place], [place], [place], [place]) Address [address] [place] [address] Care Team Providers Care Lathe Spotter Name Role Phone Martinez Canseco MD Primary Care Provider [phone] Encounter Details Date Type Department Care Team (Late st Contact Info) Description 09/03/2018 Transcribed Document [facility] [place] Family Medicine [address] [place] [address] ProviderIvan MD [address] [place] [address] Social History Tobacco Use Types Packs/Day Years Used Date Smoking Tobacco: Never Assessed Sex and Gender Information Value Date Recorded Sex Assigned at Male 09/13/2021 8:33 PM CDT Legal Sex Male 8:33 PM CDT Gender Identity Male 09/13/2021 8:33 PM CDT Sexual Orientation Not on file documented as of this encounter Miscellaneous Notes * Cerner Conversion Note - Historical ProviderMD - 09/03/2018 8:05 PM CDT Consult Phone Call Documentation Entered On: 09/04/2018 7:00 EDT Performed On: 09/03/2018 20:05 EDT by Cassy Adames Phone Call for Consults Consult Phone Call/Page Attempt : First call Cassy Adames - 09/04/2018 7:00 EDT documented in this encounter Plan of Treatment Upcoming Encounters Date Type Department Care Team (Late st Contact Info) Description 10/27/2024 10:00 AM EDT Appointment [facility] 1 [place] [address] [place] [address] [place] [address] [address] [place] [address] 10/29/2024 10:30 AM EDT Audio - Telemedicine [facility] [address] [place] [address] [address] [place] [address] Adalberto Painting MD [address] [place] [address] [address] [place] [address] documented as of this encounter Visit Diagnoses Not on filedocumented in this encounter Care Teams Lathe Spotter Relationship Specialty Start Date End Date Martinez Canseco MD [address] [place] [address] PCP - General Family Medicine 10/05/22 documented as of this encounter
--- OUTSIDE RECORDS SUMMARY | 2024-10-14 15:49 | XMS_ITS | Encounter Summary ---
Author Organization [employer] ([place], [place], [place], [place]) Address [address] [place] [address] Care Team Providers Care Clinical Tech Name Role Phone Martinez Canseco MD Primary Care Provider [phone] Encounter Details Date Type Department Care Team (Late st Contact Info) Description 09/13/2018 Transcribed Document [facility] [place] [address] [place] [address] ProviderIvan MD [address] [place], [place] [id number] Social History Tobacco Use Types Packs/Day Years Used Date Smoking Tobacco: Never Assessed Sex and Gender Information Value Date Recorded Sex Assigned at Male 09/13/2021 8:33 PM CDT Legal Sex Male 8:33 PM CDT Gender Identity Male 09/13/2021 8:33 PM CDT Sexual Orientation Not on file documented as of this encounter Miscellaneous Notes * Cerner Conversion Note - Historical ProviderMD - 09/13/2018 12:22 PM CDT Stroke/Warfarin Instructions Entered On: 09/13/2018 12:22 EDT Performed On: 09/13/2018 12:22 EDT by Nury Bruce RN Stroke/Warfarin Instructions Stroke/TIA Discharge Ins : N/A Warfarin Discharge Ins : N/A Nury Bruce RN - 09/13/2018 12:22 EDT documented in this encounter Plan of Treatment Upcoming Encounters Date Type Department Care Team (Late st Contact Info) Description 10/27/2024 10:00 AM EDT Appointment [facility] 1 [place] [address] Adalberto Painting MD 1401 [facility] [address] [place] [phone] 10/29/2024 10:30 AM EDT Audio - Telemedicine [facility] [address] [place] [address] [address] [place] [address] Adalberto Painting MD 14[address] [facility] [address] [place] [phone] documented as of this encounter Visit Diagnoses Not on filedocumented in this encounter Care Teams Clinical Tech Relationship Specialty Start Date End Date Martinez Canseco MD [address] [place] [address] PCP - General Family Medicine 10/05/22 documented as of this encounter
--- OUTSIDE RECORDS SUMMARY | 2024-10-14 15:49 | XMS_ITS | Encounter Summary ---
Author Organization [employer] ([place], [place], [place], [place]) Address [address] [place] [address] Care Team Providers Care Log Pond Worker Name Role Phone Martinez Canseco MD Primary Care Provider [phone] Encounter Details Date Type Department Care Team (Late st Contact Info) Description 09/04/[address] [facility] Medicine [address] [place] [address] ProviderIvan MD [address] [place] [address] Social History Tobacco Use Types [...] Note - Ivan Nino MD - 09/04/2018 5:35 PM CDT [facility] Main OR IntraOp Summary Primary Physician: ESVIN BUTTS MD-CAT Finalized Date/Time: 09/05/18 09:42:31 Pt. Name: IZABELLA PACHECO/Sex: 1950 Male Med Rec #: [id number] Physician: ESVIN BUTTS MD-CAT Financial #: [id number] Pt. Type: I Room/Bed: 02/1 Admit/Disch: 09/02/18 14:21:00 - Institution: [facility] IntraOp Case Attendance Entry 1 Entry 2 Entry 3 Case Attendee ESVIN BUTTS GRAFF, WAYNE B, MD Grimes, Jennifer, [facility] MD-CAT Pref Card Builder Role Performed Surgeon/Proceduralist, Anesthesiologist Health Professional, First First Time In 09/04/18 16:52:00 09/04/18 16:52:00 09/04/18 16:52:00 Time Out 09/04/18 23:06:00 09/04/18 23:06:00 09/04/18 22:27:00 Procedure Vein Peru Vein [place] Vein [place] Endosaphenous, Endosaphenous, Endosaphenous, Transesophageal Transesophageal Transesophageal Echocardiogram, CABG w Echocardiogram, CABG w Echocardiogram, CABG w Mitral Valve Mitral Valve Mitral Valve Other Attendee Superficial Wound Closed By: Last Modified By: CECI THOMAS 09/04/18 CECI THOMAS 09/04/18 CECI THOMAS 09/04/18 23:06:40 23:06:40 23:06:40 Entry 4 Entry 5 Entry 6 Case Attendee PATIENCE ALVAREZ Letitia, ST PEPPER, PATRICK, PA Role Performed Scrub, First Scrub, Second Physician billing assistant Time In 09/04/18 16:52:00 09/04/18 16:52:00 09/04/18 16:52:00 Time Out 09/04/18 23:06:00 09/04/18 23:06:00 09/04/18 23:06:00 Procedure Vein [place] Vein [place] Vein [place] Endosaphenous, Endosaphenous, Endosaphenous, Transesophageal Transesophageal Transesophageal Echocardiogram, CABG w Echocardiogram, CABG w Echocardiogram, CABG w Mitral Valve Mitral Valve Mitral Valve Other Attendee ORIENTEE Superficial Wound Closed By: Last Modified By: CECI THOMAS 09/04/18 CECI THOMAS 09/04/18 CECI THOMAS 09/04/18 23:06:40 23:06:40 23:06:40 Entry 7 Entry 8 Entry 9 Case Attendee Silver Bonilla, gas appliance adjuster EDILSON WHITT MD TERRY, JULIA Role Performed Station Chief Anesthesiologist Health Professional, First Time In 09/04/18 16:52:00 09/04/18 21:23:00 09/04/18 22:24:00 Time Out 09/04/18 23:06:00 09/04/18 23:06:00 09/04/18 23:06:00 Procedure Vein [place] Vein [place] Vein [place] Endosaphenous, Endosaphenous, Endosaphenous, Transesophageal Transesophageal Transesophageal Echocardiogram, CABG w Echocardiogram, CABG w Echocardiogram, CABG w Mitral Valve Mitral Valve Mitral Valve Other Attendee Superficial Wound Closed By: Last Modified By: CECI THOMAS 09/04/18 CECI THOMAS 09/04/18 CECI THOMAS 09/04/18 23:06:40 23:06:40 23:06:40 [facility] IntraOp Case Attendance Audit 09/04/18 23:06:40 Skilled Trades Teacher: ADELITA Modifier: MORALESIATERRY 1 <+> Time Out 1 <*> Procedure Vein [place] Endosaphenous, Transesophageal Echocardiogram, CABG w Mitral Valve 2 <+> Time Out 2 <*> Procedure Vein [place] Endosaphenous, Transesophageal Echocardiogram, CABG w Mitral Valve 3 <*> Procedure Vein [place] Endosaphenous, Transesophageal Echocardiogram, CABG w Mitral Valve 4 <+> Time Out 4 <*> Procedure Vein [place] Endosaphenous, Transesophageal Echocardiogram, CABG w Mitral Valve 5 <+> Time Out 5 <*> Procedure Vein [place] Endosaphenous, Transesophageal Echocardiogram, CABG w Mitral Valve 6 <+> Time Out 6 <*> Procedure Vein [place] Endosaphenous, Transesophageal Echocardiogram, CABG w Mitral Valve 7 <+> Time Out 7 <*> Procedure Vein [place] Endosaphenous, Transesophageal Echocardiogram, CABG w Mitral Valve 8 <+> Time Out 8 <*> Procedure Vein [place] Endosaphenous, Transesophageal Echocardiogram, CABG w Mitral Valve 9 <+> Time Out 9 <*> Procedure Vein [place] Endosaphenous, Transesophageal Echocardiogram, CABG w Mitral Valve 09/04/18 22:27:20 Skilled Trades Teacher: ELISABETH Modifier: ADELITA 3 <+> Time Out 3 <*> Procedure Vein [place] Endosaphenous, Transesophageal Echocardiogram, CABG w Mitral Valve 09/04/18 22:25:00 Skilled Trades Teacher: ELISABETH Modifier: ELISABETH <+> 9 Case Attendee <+> 9 Role Performed <+> 9 Time In <+> 9 Procedure 09/04/18 21:29:58 Skilled Trades Teacher: ELISABETH Modifier: LINWOODKingaKELSIE <+> 8 Case Attendee <+> 8 Role Performed <+> 8 Time In <+> 8 Procedure 09/04/18 17:55:49 Skilled Trades Teacher: ELISABETH Modifier: LINWOODSKELSIE 1 <*> Procedure Vein [place] Endosaphenous, Transesophageal Echocardiogram, Mitral Valve Replacement, CABG w Mitral Valve 2 <*> Procedure Vein [place] Endosaphenous, Transesophageal Echocardiogram, Mitral Valve Replacement, CABG w Mitral Valve 3 <*> Procedure Vein [place] Endosaphenous, Transesophageal Echocardiogram, Mitral Valve Replacement, CABG w Mitral Valve 4 <*> Procedure Vein [place] Endosaphenous, Transesophageal Echocardiogram, Mitral Valve Replacement, CABG w Mitral Valve 5 <*> Procedure Vein [place] Endosaphenous, Transesophageal Echocardiogram, Mitral Valve Replacement, CABG w Mitral Valve 6 <*> Procedure Vein [place] Endosaphenous, Transesophageal Echocardiogram, Mitral Valve Replacement, CABG w Mitral Valve 7 <*> Procedure Vein [place] Endosaphenous, Transesophageal Echocardiogram, Mitral Valve Replacement, CABG w Mitral Valve 09/04/18 17:55:27 Skilled Trades Teacher: ELISABETH Modifier: LINWOODSKELSIE 1 <*> Procedure Coronary Artery Bypass Graft, Vein [place] Endosaphenous, Transesophageal Echocardiogram, Mitral Valve Replacement, CABG w Mitral Valve 2 <*> Procedure Coronary Artery Bypass Graft, Vein [place] Endosaphenous, Transesophageal Echocardiogram, Mitral Valve Replacement, CABG w Mitral Valve 3 <*> Procedure Coronary Artery Bypass Graft, Vein [place] Endosaphenous, Transesophageal Echocardiogram, Mitral Valve Replacement, CABG w Mitral Valve 4 <*> Procedure Coronary Artery Bypass Graft, Vein [place] Endosaphenous, Transesophageal Echocardiogram, Mitral Valve Replacement, CABG w Mitral Valve 5 <*> Procedure Coronary Artery Bypass Graft, Vein [place] Endosaphenous, Transesophageal Echocardiogram, Mitral Valve Replacement, CABG w Mitral Valve 6 <*> Procedure Coronary Artery Bypass Graft, Vein [place] Endosaphenous, Transesophageal Echocardiogram, Mitral Valve Replacement, CABG w Mitral Valve 7 <*> Procedure Coronary Artery Bypass Graft, Vein [place] Endosaphenous, Transesophageal Echocardiogram, Mitral Valve Replacement, CABG w Mitral Valve 09/04/18 17:52:39 Skilled Trades Teacher: ELISABETH Modifier: ISAIBRONWYNSKELSIE 1 <*> Procedure Coronary Artery Bypass Graft, Vein [place] Endosaphenous, Transesophageal Echocardiogram, Mitral Valve Replacement 2 <*> Procedure Coronary Artery Bypass Graft, Vein [place] Endosaphenous, Transesophageal Echocardiogram, Mitral Valve Replacement 3 <*> Procedure Coronary Artery Bypass Graft, Vein [place] Endosaphenous, Transesophageal Echocardiogram, Mitral Valve Replacement 4 <*> Procedure Coronary Artery Bypass Graft, Vein [place] Endosaphenous, Transesophageal Echocardiogram, Mitral Valve Replacement 5 <*> Procedure Coronary Artery Bypass Graft, Vein [place] Endosaphenous, Transesophageal Echocardiogram, Mitral Valve Replacement 6 <*> Procedure Coronary Artery Bypass Graft, Vein [place] Endosaphenous, Transesophageal Echocardiogram, Mitral Valve Replacement 7 <*> Procedure Coronary Artery Bypass Graft, Vein [place] Endosaphenous, Transesophageal Echocardiogram, Mitral Valve Replacement 09/04/18 17:46:43 Skilled Trades Teacher: ELISABETH Modifier: ELISABETH 1 <*> Procedure Coronary Artery Bypass Graft, Vein [place] Endosaphenous, Transesophageal Echocardiogram, Mitral Valve Replacement 2 <+> Time In 2 <*> Procedure Coronary Artery Bypass Graft, Vein [place] Endosaphenous, Transesophageal Echocardiogram, Mitral Valve Replacement 3 <+> Time In 3 <*> Procedure Coronary Artery Bypass Graft, Vein [place] Endosaphenous, Transesophageal Echocardiogram, Mitral Valve Replacement 4 <+> Time In 4 <*> Procedure Coronary Artery Bypass Graft, Vein [place] Endosaphenous, Transesophageal Echocardiogram, Mitral Valve Replacement 5 <+> Time In 5 <*> Procedure Coronary Artery Bypass Graft, Vein [place] Endosaphenous, Transesophageal Echocardiogram, Mitral Valve Replacement 6 <+> Time In 6 <*> Procedure Coronary Artery Bypass Graft, Vein [place] Endosaphenous, Transesophageal Echocardiogram, Mitral Valve Replacement 7 <+> Time In 7 <*> Procedure Coronary Artery Bypass Graft, Vein [place] Endosaphenous, Transesophageal Echocardiogram, Mitral Valve Replacement 09/04/18 17:44:04 Skilled Trades Teacher: ELISABETH Modifier: ELISABETH <+> 1 Procedure <+> 2 Case Attendee <+> 2 Role Performed <+> 2 Procedure <+> 3 Case Attendee <+> 3 Role Performed <+> 3 Procedure <+> 4 Case Attendee <+> 4 Role Performed <+> 4 Procedure <+> 5 Case Attendee <+> 5 Role Performed <+> 5 Procedure <+> 5 Other Attendee <+> 6 Case Attendee <+> 6 Role Performed <+> 6 Procedure <+> 7 Case Attendee <+> 7 Role Performed <+> 7 Procedure [facility] IntraOp Case Times Entry 1 Patient In Room Time 09/04/18 16:52:00 Out Room Time 09/04/18 23:06:00 Anesthesia Start Time 09/04/18 16:52:00 Stop Time 09/04/18 23:06:00 Surgery / Procedure Times Start Time 09/04/18 17:35:00 Stop Time 09/04/18 22:58:00 Last Modified By: CECI THOMAS 09/04/18 23:06:34 [facility] IntraOp Case Times Audit 09/04/18 23:06:34 Skilled Trades Teacher: LOUKELSIE Modifier: MORALESFAISALRRY <+> 1 Out Room Time <+> 1 Stop Time <+> 1 Stop Time 09/04/18 17:37:35 Skilled Trades Teacher: ELISABETH Modifier: ELISABETH <+> 1 Start Time [facility] IntraOp Cautery Entry 1 Entry 2 ESU Identification Cautery Type Monopolar ESU Monopolar ESU Cautery Type Comments ID Number [id number] ID Type Hospital Number Hospital Number Cautery Settings Cut Setting 40 1 Coag Setting 60 30 Blend Setting 2 Bipolar Setting Argon Setting Argon Walden ESU Grounding Pad Ground Pad Type Adult Adult Grounding Pad Type Comment Grounding Pad Site Right Buttock Left buttock Grounding Pad Site Comment Grounding Pad [facility] Grimes, Jennifer, [facility] Applied By Pref Card Builder Pref Card Builder Grounding Pad Site Warm, Dry, Intact Warm, Dry, Intact Skin Condition Before Cautery Site Skin Condition WDL WDL Before Comment Grounding Pad Site Unchanged Unchanged Skin Condition After Cautery Site Skin Condition WDL WDL After Comment Last Modified By: [facility] Grimes, Jennifer, [facility] Pref Card Builder Pref Card Builder 09/04/18 17:47:32 09/04/18 17:47:32 [facility] IntraOp Communication Entry 1 Entry 2 Entry 3 Communication To Other Family/Significant other Family/Significant other Comment CTVU - START start - FAMILY NOT IN ON BYPASS WAITING ROOM Communication By [facility] Grimes, Jennifer, [facility] Grimes, Jennifer, [facility] Pref Card Builder Pref Card Builder Pref Card Builder Date and Time 09/04/18 17:37:00 09/04/18 17:37:00 09/04/18 18:44:00 Last Modified By: [facility] TERRY, JULIA 09/04/18 [facility] Pref Card Builder 22:43:37 Pref Card Builder 09/04/18 17:48:57 09/04/18 18:44:47 Entry 4 Entry 5 Entry 6 Communication To Other Family/Significant other Other Comment CTVU - ON BYPASS OFF BYPASS CTVU - OFF BYPASS Communication By [facility] Grimes, Jennifer, [facility] Grimes, Jennifer, [facility] Pref Card Builder Pref Card Builder Pref Card Builder Date and Time 09/04/18 18:43:00 09/04/18 21:30:00 09/04/18 21:30:00 Last Modified By: [facility] Grimes, Jennifer, [facility] Grimes, Jennifer, [facility] Pref Card Builder Pref Card Builder Pref Card Builder 09/04/18 18:44:47 09/04/18 18:44:47 09/04/18 21:30:14 Entry 7 Entry 8 Entry 9 Communication To Family/Significant other Other Family/Significant other Comment CLOSING CTVU - CLOSING update Communication By [facility] Grimes, Jennifer, Carola Hernandez [facility] Pref Card Builder Pref Card Builder Pref Card Builder Date and Time 09/04/18 22:21:00 09/04/18 22:21:00 09/04/18 20:11:00 Last Modified By: [facility] Grimes, Jennifer, [facility] Grimes, Jennifer [facility] Pref Card Builder Pref Card Builder Pref Card Builder 09/04/18 21:30:14 09/04/18 22:21:45 09/04/18 22:21:45 Entry 10 Communication To Other Comment CTVU-ROLLING Communication By CECI THOMAS Date and Time Last Modified By: [facility] Pref Card Builder 09/04/18 20:16:18 [facility] IntraOp Communication Audit 09/04/18 22:43:37 Skilled Trades Teacher: ELISABETH Modifier: [email or web address] <+> 10 Communication By <+> 10 Communication To <+> 10 Comment 09/04/18 22:21:45 Skilled Trades Teacher: ELISABETH Modifier: [email or web address] <+> 7 Date and Time <+> 8 Date and Time 09/04/18 21:30:14 Skilled Trades Teacher: LINWOODSKELSIE Modifier: GRIMESJE <+> 5 Date and Time <+> 6 Date and Time 09/04/18 20:16:18 Skilled Trades Teacher: LINWOODSKELSIE Modifier: LINOWODSJE <+> 9 Communication By <+> 9 Date and Time <+> 9 Communication To <+> 9 Comment 09/04/18 18:44:47 Skilled Trades Teacher: ELISABETH Modifier: LINWOODSKELSIE 2 <*> Comment FAMILY NOT IN WAITING ROOM <+> 3 Date and Time <+> 4 Date and Time 09/04/18 17:48:57 Skilled Trades Teacher: ELISABETH Modifier: LINWOODSKELSIE <+> 1 Communication By <+> 1 Communication To <+> 1 Comment <+> 2 Communication By <+> 2 Date and Time <+> 2 Communication To <+> 2 Comment <+> 3 Communication By <+> 3 Communication To <+> 3 Comment <+> 4 Communication By <+> 4 Communication To <+> 4 Comment <+> 5 Communication By <+> 5 Communication To <+> 5 Comment <+> 6 Communication By <+> 6 Communication To <+> 6 Comment <+> 7 Communication By <+> 7 Communication To <+> 7 Comment <+> 8 Communication By <+> 8 Communication To <+> 8 Comment [facility] IntraOp Counts Verification Entry 1 Entry 2 Procedure Vein [place] Vein [place] Endosaphenous, Endosaphenous, Transesophageal Transesophageal Echocardiogram, CABG w Echocardiogram, CABG w Mitral Valve Mitral Valve Count Info Count Type Sponge, Sharps, Sponge, Sharps, Instrument, Instrument, Miscellaneous Miscellaneous Counts Verification Baseline/pre-procedure Closure of cavity Sequence within a cavity Count Results Not Applicable Correct, surgeon notified If Incorrect or Waived complete the Counts Action Taken form: If Intentional Retention, complete the Intential Retention form: Counts Performed By Count Performed By PATIENCE ALVAREZ Letitia, ST (Scrub) Count Performed By [facility] Grimes, Jennifer, [facility] (RN) Pref Card Builder Pref Card Builder Last Modified By: [facility] TERRY, JULIA 09/04/18 Pref Card Builder 22:27:41 09/04/18 17:55:50 [facility] IntraOp Counts Verification Audit 09/04/18 22:27:41 Skilled Trades Teacher: ELISABETH Modifier: ADELITA 2 <*> Procedure Vein [place] Endosaphenous, Transesophageal Echocardiogram, CABG w Mitral Valve 2 <+> Count Performed By (Scrub) 2 <+> Count Performed By (RN) 09/04/18 17:55:50 Skilled Trades Teacher: ELISABETH Modifier: ISAIIMESKELSIE 1 <*> Procedure Vein [place] Endosaphenous, Transesophageal Echocardiogram, Mitral Valve Replacement, CABG w Mitral Valve 2 <*> Procedure Vein [place] Endosaphenous, Transesophageal Echocardiogram, Mitral Valve Replacement, CABG w Mitral Valve 09/04/18 17:55:28 Skilled Trades Teacher: ELISABETH Modifier: ISAIIMESJE 1 <*> Procedure Coronary Artery Bypass Graft, Vein [place] Endosaphenous, Transesophageal Echocardiogram, Mitral Valve Replacement, CABG w Mitral Valve 2 <*> Procedure Coronary Artery Bypass Graft, Vein [place] Endosaphenous, Transesophageal Echocardiogram, Mitral Valve Replacement, CABG w Mitral Valve 09/04/18 17:52:41 Skilled Trades Teacher: ELISABETH Modifier: ISAIIMESJE 1 <*> Procedure Coronary Artery Bypass Graft, Vein [place] Endosaphenous, Transesophageal Echocardiogram, Mitral Valve Replacement 2 <*> Procedure Coronary Artery Bypass Graft, Vein [place] Endosaphenous, Transesophageal Echocardiogram, Mitral Valve Replacement [facility] IntraOp Counts Final Entry 1 Procedure Vein [place] Endosaphenous, Transesophageal Echocardiogram, CABG w Mitral Valve Final Count Info Count Type Sponge, Sharps, Miscellaneous Counts Verification Skin Closure/end of Sequence procedure Count Results Correct, surgeon notified Counts Performed By Count Performed By Ilsa Mcclelland ST (Scrub) Count Performed By CECI THOMAS (RN) Last Modified By: CECI THOMAS 09/04/18 22:43:57 [facility] IntraOp Counts Final Audit 09/04/18 22:43:57 Skilled Trades Teacher: ELISABETH Modifier: ADELITA 1 <*> Procedure Vein [place] Endosaphenous, Transesophageal Echocardiogram, CABG w Mitral Valve 1 <+> Count Performed By (Scrub) 1 <+> Count Performed By (RN) 09/04/18 17:55:51 Skilled Trades Teacher: ELISABETH Modifier: ELISABETH 1 <*> Procedure Vein [place] Endosaphenous, Transesophageal Echocardiogram, Mitral Valve Replacement, CABG w Mitral Valve 09/04/18 17:55:29 Skilled Trades Teacher: ELISABETH Modifier: ELISABETH 1 <*> Procedure Coronary Artery Bypass Graft, Vein [place] Endosaphenous, Transesophageal Echocardiogram, Mitral Valve Replacement, CABG w Mitral Valve 09/04/18 17:52:44 Skilled Trades Teacher: ELISABETH Modifier: ELISABETH 1 <*> Procedure Coronary Artery Bypass Graft, Vein [place] Endosaphenous, Transesophageal Echocardiogram, Mitral Valve Replacement [facility] IntraOp Departure from OR Entry 1 Integumentary Assessment Integumentary WDL Assessment WDL Transfer/Handoff Transfer to ICU - Cardiovascular Handoff Method Bedside/Face to face Post-op Transport Bed (including Via specialty) Patient Transport MARTY SOLOMON MD, Accompanied by Silver Bonilla, gas appliance adjuster, CARLO JARRETT PA Transfer/Handoff CTVU UPDATED THROUGHOUT Comments CASE Last Modified By: [facility] Pref Card Builder 09/04/18 17:49:40 [facility] IntraOp Drains and Tubes Entry 1 Entry 2 Entry 3 Device Type Chest Tube Chest Tube Chest Tube Size 36 Fr. straight 36 Fr. right angle 36 Fr. right angle Drain/Tube Activity Tube Tube Tube secured/stabilized, secured/stabilized, secured/stabilized, Inserted Inserted Inserted Drain/Tube Suction Drain/Tube Drainage Device Location Mediastinum Mediastinum Mediastinum Method of Drainage Continuous suction Continuous suction Continuous suction Chest Tubes Water-Seal 20 cm suction Water-Seal 20 cm suction Water-Seal 20 cm suction Connectivity Tube Dressing Dry, Intact Dry, Intact Dry, Intact Condition Surgical Drains and Tubes Irrigation Comment Last Modified By: [facility] Grimes, Jennifer, [facility] Grimes, Jennifer, [facility] Pref Card Builder Pref Card Builder Pref Card Builder 09/04/18 17:49:45 09/04/18 17:49:45 09/04/18 20:54:53 [facility] IntraOp Drains and Tubes Audit 09/04/18 20:54:53 Skilled Trades Teacher: ELISABETH Modifier: ELISABETH <+> 3 Device Type <+> 3 Drain/Tube Activity <+> 3 Device Location <+> 3 Method of Drainage <+> 3 Tube Dressing Condition <+> 3 Size <+> 3 Chest Tubes Connectivity [facility] IntraOp Dressing and Packing Entry 1 Entry 2 Type Dressing Dressing Location Chest Operative leg Wound Dressing Item 4x4's Ben Wound Packing Type Tape Type Supplemental Applications Applied By Other Comments Soft cloth paper tape Last Modified By: [facility] Grimes, Jennifer, [facility] Pref Card Builder Pref Card Builder 09/04/18 17:49:50 09/04/18 17:49:50 [facility] IntraOp Fire Risk Assessment Entry 1 Fire Info Surgical Site or 1- Yes Incision Above the Xyphoid Open O2 Source 0- No (Mask or Cannula) Available Ignition 1- Yes (ESU, Laser, Light Source) Fire Risk 2 Assessment Score Fire Score Fire Risk Yes Assessment Complete Fire Risk [facility] Assessment Verified Pref Card Builder By Fire Risk 09/04/18 16:52:00 Assessment Verified Date/Time Fire Risk Standard Fire Yes Safety Precautions Followed Last Modified By: Carola [facility]at [facility] Pref Card Builder 09/04/18 17:50:01 [facility] IntraOp General Case Environmental Laboratory Technician 1 Case Information OR OR 11 [facility] Case Level 2 Room Verified Yes Wound Class I - Clean Specialty SN Cardio Thoracic Anesthesia Type General ASA Class 4 Diagnosis Preop Diagnosis CAD Postop Same As Preop Yes Postop Diagnosis CAD Last Modified By: [facility] Pref Card Builder 09/04/18 17:50:12 [facility] IntraOp Implant Log Entry 1 Entry 2 Type Implant (Synthetic) Implant (Synthetic) Implant Log Implant Type Marker Valve(s) Tissue Implant Type Implant [facility]ER [facility] [id number] Identification [id number] Description Implant Quantity 1 1 Implant Site [employer] Implant Identification Model Number Implant [id number] Identification Serial Number Implant [id number] Identification Lot Number Implant Medtronic:Card Surg:Tech Identification Senior Geotechnical Engineer Name: Implant [id number] Identification Catalog Number Implant Size Implant Has an Yes Yes Expiration Date Implant Expiration 08/16/20 03/07/23 Date Wasted Radioactive Material Time Implanted Tissue Implant Continue for Tissue Implant Documentation Tissue Identification Number Graft Prep Per Senior Geotechnical Engineer Instructions: Tissue Preparation Method: Reconstitution Solution: Reconstitution Solution Lot Number Reconstitution Solution Expiration Date: Thawing Solution Thawing Solution Lot Number Thawing Solution Expiration Date Preparation Materials, Other Preparation Materials, Other Lot Number Preparation Materials, Other Expiration Date Tissue Prepared/Processed By Senior Geotechnical Engineer Paperwork Completed Implant Type Comment Last Modified By: [facility] Grimes, Jennifer, [facility] Pref Card Builder Pref Card Builder 09/04/18 17:59:36 09/04/18 20:18:21 [facility] IntraOp Implant Log Audit 09/04/18 20:18:21 Skilled Trades Teacher: ELISABETH Modifier: ELISABETH <+> 2 Implant Identification Description <+> 2 Implant Identification Serial Number <+> 2 Implant Identification Senior Geotechnical Engineer Name: <+> 2 Implant Expiration Date <+> 2 Implant Site <+> 2 Implant Quantity <+> 2 Implant Identification Catalog Number <+> 2 Implant Type <+> 2 Implant Has an Expiration Date <+> 2 Type [facility] IntraOp Intraoperative Assessment Entry 1 Handoff Method Online nursing summary Valid History / Yes Physical in Chart Preoperative Yes Checklist Reviewed/Evaluated Allergies Reviewed Yes Patient is Latex No Sensitive Isolation Not applicable Precautions Noted Level of WDL Consciousness (WDL = Alert, Oriented to Person, Place, and Time) Skin Assessment Yes Verified Present Upon IVs, Central line, Arrival to OR Arterial line Last Modified By: [facility] Pref Card Builder 09/04/18 17:50:19 [facility] IntraOp Intraoperative Equipment Entry 1 Equipment Intraop Monitoring Electrocardiogram Five lead placement (ECG) Electrode Placement Blood Pressure Non-Invasive BP Device Source Blood Pressure Arm, right upper Location Pulse Oximeter Hand, left Probe Site Antiembolic Devices Scopes Photo/Video Documentation Last Modified By: [facility] Pref Card Builder 09/04/18 17:50:23 [facility] IntraOp Medication Admin Entry 1 Entry 2 Entry 3 Medication/Irrigant Ancef 1Gm advantage papverine HCL 30mg/ml COMBO heparinized vial - [id number] 10ml - [id number] Lactated Ringers 1000units/100ml - [id number] Combo Med List Time Administered Route of IRRIGATION IRRIGATION FLUSH Administration Dose Dose 1 150 1000 Unit of Measure gram mg units Volume Administered By ESVIN BUTTS, ESVIN BUTTS, ESVIN BUTTS MD-CAT -[place] Procedure Irrigation Irrigant Volume In Irrigant Volume Out Last Modified By: [facility] Grimes, Jennifer, [facility] Grimes, Jennifer, [facility] Pref Card Builder Pref Card Builder Pref Card Builder 09/04/18 17:50:44 09/04/18 17:50:44 09/04/18 17:50:44 [facility] IntraOp Patient Positioning Entry 1 Procedure Vein [place] Endosaphenous, Transesophageal Echocardiogram, CABG w Mitral Valve Body Position Supine Left Arm Position Tucked and padded at side Right Arm Position Tucked and padded at side Left Leg Position Uncrossed, parallel Right Leg Position Uncrossed, parallel Feet Uncrossed Yes Pressure Points Yes Checked Device Position SARMIENTO HEADREST, TEMPURPEDIC MATTRESS, ULNAR NERVE PROTECTORS, SAFETY BELT PRE-PREP, SHOULDER ROLL Positioned By [facility] Pref Card BuildNEHA frost WAYNE B, MD, ESVIN BUTTS, -[place] Position Verified Positioning Yes Verified by Anesthesia Positioning Yes Verified by Surgeon Last Modified By: [facility] Pref Card Builder 09/04/18 17:55:50 [facility] IntraOp Patient Positioning Audit 09/04/18 17:55:50 Skilled Trades Teacher: ELISABETH Modifier: ELISABETH 1 <*> Procedure Vein [place] Endosaphenous, Transesophageal Echocardiogram, Mitral Valve Replacement, CABG w Mitral Valve 09/04/18 17:55:28 Skilled Trades Teacher: ELISABETH Modifier: LINWOODSKELSIE 1 <*> Procedure Coronary Artery Bypass Graft, Vein [place] Endosaphenous, Transesophageal Echocardiogram, Mitral Valve Replacement, CABG w Mitral Valve 09/04/18 17:52:42 Skilled Trades Teacher: ELISABETH Modifier: LINWOODSKESLIE 1 <*> Procedure Coronary Artery Bypass Graft, Vein [place] Endosaphenous, Transesophageal Echocardiogram, Mitral Valve Replacement [facility] IntraOp Sign In Entry 1 Patient, Site, Yes Procedure Identified Surgical Consent Yes Confirmed Relevant Surgical Yes Documents Available Surgical Site N/A Marked by person performing procedure Anesthesia Machine Yes Check Completed Medication Checks Yes Completed Allergies Yes Airway Difficult Yes Airway/Aspiration Risk Difficult Yes Airway/Aspiration Intervention Equipment Available Blood Loss Risk Yes Blood Loss Yes Intervention Equipment Prepared and Ready Hypothermia Risk Yes Warming Measures Yes Taken Last Modified By: [facility] Pref Card Builder 09/04/18 17:50:54 [facility] IntraOp Sign Out Entry 1 RN Confirmation Surgical Yes Procedure(s) Identified Instrument, Sponge Yes and Sharps Counts Correct/Documented Equipment Problems N/A Documented Specimen Labeled Yes Correctly Urinary Catheter Yes Documented in IView Castillo Patient Yes Recovery Concerns Reviewed with Anesthesia Provider, Surgeon and RN Castillo Patient Yes Management Concerns Reviewed with Anesthesia Provider, Surgeon and RN Safety Checklist Yes Elements Complete? RN Sign Out CECI THOMAS Signature RN Sign Out 09/04/18 22:44:00 Signature Date/Time Plan of Care Outcome - Fire Risk OUTCOME STATEMENT: Goal met Patient is free from injury related to surgical fire Plan of Care Outcome - Pt Positioning OUTCOME STATEMENT: Goal met Absence of signs and symptoms of positioning injury. Plan of Care Outcome - Skin Prep OUTCOME STATEMENT: Goal met Intraoperative care is consistent with measures to prevent infection Plan of Care Outcome - Xray/Images OUTCOME STATEMENT: Goal met Absence of observable signs or symptoms of radiation injury Plan of Care Outcome - Counts OUTCOME STATEMENT: Goal met Absence of signs and symptoms of injury related to extraneous objects Last Modified By: CECI THOMAS 09/04/18 22:44:07 [facility] IntraOp Sign Out Audit 09/04/18 22:44:07 Skilled Trades Teacher: ELISABETH Modifier: ADELITA <+> 1 RN Sign Out Signature Date/Time 09/04/18 22:25:13 Skilled Trades Teacher: ELISABETH Modifier: ELISABETH 1 <*> RN Sign Out Signature [facility] Pref Card Builder [facility] IntraOp Skin Prep Entry 1 Procedure Vein [place] Endosaphenous, Transesophageal Echocardiogram, CABG w Mitral Valve Prescribed Yes Pre-Surgical Prep Completed Prep Area Chin to toes, legs circumferentially Intraop Prep Integumentary WDL Assessment WDL Patients Normal WDL Integumentary Variance(s) Prep Agents Chloraprep Prep by [facility] Pref Card Builder Hair Removal Last Modified By: [facility] Pref Card Builder 09/04/18 17:55:50 [facility] IntraOp Skin Prep Audit 09/04/18 17:55:50 Skilled Trades Teacher: ELISABETH Modifier: LNIWOODSKELSIE 1 <*> Procedure Vein [place] Endosaphenous, Transesophageal Echocardiogram, Mitral Valve Replacement, CABG w Mitral Valve 09/04/18 17:55:28 Skilled Trades Teacher: LINWOODSKELSIE Modifier: LINWOODSKELSIE 1 <*> Procedure Coronary Artery Bypass Graft, Vein [place] Endosaphenous, Transesophageal Echocardiogram, Mitral Valve Replacement, CABG w Mitral Valve 09/04/18 17:52:43 Skilled Trades Teacher: ISAIBRONWYNKingaKELSIE Modifier: LINWOODSKELSIE 1 <*> Procedure Coronary Artery Bypass Graft, Vein [place] Endosaphenous, Transesophageal Echocardiogram, Mitral Valve Replacement [facility] IntraOp Surgical Procedures Entry 1 Entry 2 Entry 3 Procedure Vein [place] Transesophageal CABG w Mitral Valve Endosaphenous Echocardiogram Modifiers Additional MEDIAN STERNOTOMY, Procedure CORONARY ARTERY BYPASS Description X 2 USING LEFT SHAYLA, RIGHT GREATER SAPHENOUS VEIN, EVH, INTRA OP JESUSITA, PLATELET GEL APPLICATION, MITRAL VALVE REPAIR Primary Procedure No No Yes Primary Surgeon ESVIN BUTTS, ESVIN BUTTS, ESVIN BUTTS, -CAT -CAT -CAT Start 09/04/18 17:35:00 09/04/18 17:35:00 09/04/18 17:35:00 Stop 09/04/18 22:58:00 09/04/18 22:58:00 09/04/18 22:58:00 Physician States Cecum Reached Anesthesia Type General General General Specialty SN Cardio Thoracic SN Cardio Thoracic SN Cardio Thoracic Wound Class I - Clean I - Clean I - Clean Last Modified By: CECI THOMAS 09/04/18 CECI THOMAS 09/04/18 CECI THOMAS 09/04/18 23:06:37 23:06:37 23:06:37 [facility] IntraOp Surgical Procedures Audit 09/04/18 23:06:37 Skilled Trades Teacher: ELISABETH Modifier: ADELITA <+> 1 Stop <+> 2 Stop <+> 3 Stop 09/04/18 17:56:36 Skilled Trades Teacher: ISAIBRONWYNKingaKELSIE Modifier: LINWOODSKELSIE Entry 1 was deleted. Higher numbered entries shifted one position to fill the gap. <-> 1 Procedure Coronary Artery Bypass Graft <-> 1 Primary Procedure Yes <-> 1 Primary Surgeon ESVIN BUTTS MD-CAT <-> 1 Specialty <-> 1 Start 09/04/18 17:35:00 <-> 1 Wound Class I - Clean <-> 1 Anesthesia Type General <-> 1 Additional Procedure Description MEDIAN STERNOTOMY, CORONARY ARTERY BYPASS X 2 USING LEFT SHAYLA, RIGHT GREATER SAPHENOUS VEIN, EVH, INTRA OP JESUSITA, PLATELET GEL APPLICATION, MITRAL VALVE REPAIR 2 <*> Procedure Vein [place] Endosaphenous 2 <*> Primary Procedure No 2 <*> Primary Surgeon ESVIN BUTTS MD-CAT 2 <*> Specialty 2 <*> Start 09/04/18 17:35:00 2 <*> Wound Class I - Clean 2 <*> Anesthesia Type General 3 <*> Procedure Transesophageal Echocardiogram 3 <*> Primary Procedure No 3 <*> Primary Surgeon ESVIN BUTTS MD-CAT 3 <*> Specialty 3 <*> Start 09/04/18 17:35:00 3 <*> Wound Class I - Clean 3 <*> Anesthesia Type General 3 <+> Additional Procedure Description Entry 4 was deleted. Higher numbered entries shifted one position to fill the gap. <-> 4 Procedure Mitral Valve Replacement <-> 4 Primary Procedure No <-> 4 Primary Surgeon ESVIN BUTTS MD-CAT <-> 4 Specialty <-> 4 Start 09/04/18 17:35:00 <-> 4 Wound Class I - Clean <-> 4 Anesthesia Type General [facility] IntraOp Temp Regulation Devices Entry 1 Entry 2 Temp Regulation Temperature Warm blankets Forced Air Warming Regulation Device device Temperature Regulation Device Serial/Unit Number Temperature Full body Lower body Regulation Site Temperature Device 43 DEG Setting Temperature [facility] Grimes, Jennifer, [facility] Regulation Device Pref Card Builder Pref Card Builder Applied by Temperature LAMBERTO HUGGER TURNED ON Regulation Comment AFTER AORTIC CROSS CLAMP REMOVED Last Modified By: [facility] Grimes, Jennifer, [facility] Pref Card Builder Pref Card Builder 09/04/18 17:51:13 09/04/18 17:51:13 [facility] IntraOP Time Out Entry 1 Procedure to be Vein [place] Performed Endosaphenous, Transesophageal Echocardiogram, CABG w Mitral Valve Time Out Time Out Pause Time 09/04/18 17:33:00 All activity Yes suspended (unless life threatening emergency) Team Verbally Correct patient Confirms Information identity, Correct side and site are marked, Consent form is present and accurate, Agreement on the procedure to be done, Correct patient position, Relevant images/results properly labeled/appropriately displayed, Confirm antibiotics have been administered, Confirm the skin prep has dried, Confirm prosthesis/implant/devic e is present, Performed Electronically signed by Destiny [facility] Conversion Clinical Sciences Professor Cerner at 07/05/2022 8:42 PM CDT documented in this encounter Plan of Treatment Upcoming Encounters Date Type Department Care Team (Late st Contact Info) Description 10/27/2024 10:00 AM EDT Appointment [facility] MRI 1 [place] [address] Adalberto Painting MD [address] [place] [id number] 10/29/2024 10:30 AM EDT Audio - Telemedicine [facility] [address] [facility] [address] [place] [address] Adalberto Painting MD [address] [place] [address] [address] [place] [address] documented as of this encounter Visit Diagnoses Not on filedocumented in this encounter Care Teams Log Pond Worker Relationship Specialty Start Date End Date Martinez Canseco MD [address] [place] [address] PCP - General Family Medicine 10/05/22 documented as of this encounter
--- OUTSIDE RECORDS SUMMARY | 2024-10-14 15:49 | XMS_ITS | Encounter Summary ---
Author Organization [employer] ([place], [place], [place], [place]) Address [address] [place] [address] Care Team Providers Care Waste Water Or Water Plant Operator Name Role Phone Martinez Canseco MD Primary Care Provider [phone] Encounter Details Date Type Department Care Team (Late st Contact Info) Description 09/02/2018 Transcribed Document [facility] Family Medicine [address] [place] [address] ProviderIvan MD [address] [place] [address] Social History Tobacco Use Types Packs/Day Years Used Date Smoking Tobacco: Never Assessed Sex and Gender Information Value Date Recorded Sex Assigned at Male 09/13/2021 8:33 PM CDT Legal Sex Male 8:33 PM CDT Gender Identity Male 09/13/2021 8:33 PM CDT Sexual Orientation Not on file documented as of this encounter Miscellaneous Notes * Cerner Conversion Note - Ivan ProviderMD - 09/02/2018 3:03 PM CDT Spiritual Care Assessment Entered On: 09/02/2018 17:21 EDT Performed On: 09/02/2018 15:03 EDT by TL PETIT Chaplain General Information Initial Visit : Yes Referred by : Physician Referral Reason Comment : order for routine hot top liner visit Ministry Provided to : Patient, Family/Significant other Ministry Comment/Summary Points : patient's brother, Elpidio,. present during this visit. Spiritual Framework : Unknown Judaism Preference : No listed preference TL PETIT Chaplain - 09/02/2018 17:17 EDT Spiritual Assessment Patient's Sense of Hope : Strength in patient's life Will to Continue : Yes Sense of Gratitude : Yes Spiritual Assessment Comment/Summary Points : Augusto welcomed visit from a hot top liner, though he was soemwhat reluctant to talk about anything spiritual. His brother, Elpidio, is bedside providing excellent support. Elpidio plans to [facility] back [facility] ([facility] Augusto's daughter plans to come tonight and stay with him in the room. Augusto is a practical person, with a dry wit humor. He seems to want to keep things a bit light hearted. Excellent conversation. Spirital Assessment Comment/Summary Report : SPIRITUAL ASSESSMENT COMMENT/SUMMARY No qualifying data available. TL PETIT Chaplain - 09/02/2018 17:17 EDT Interventions Emotional Support : Empathic/Engaged listening, Family/Significant other supported, Relationship strengths identified TL PETIT Chaplain - 09/02/2018 17:17 EDT Electronically signed by Destiny [facility] Conversion Real Estate Office Supervisor Cerner at 07/05/2022 8:34 PM CDT documented in this encounter Plan of Treatment Upcoming Encounters Date Type Department Care Team (Late st Contact Info) Description 10/27/2024 10:00 AM EDT Appointment [facility] 1 [place] [phone] Adalberto Painting MD [address] [place] [address] 10/29/2024 10:30 AM EDT Audio - Telemedicine [facility] [address] [place] [address] [address] [place] [phone] Adalberto Painting MD [address] [place] [address] [address] [place] [address] documented as of this encounter Visit Diagnoses Not on filedocumented in this encounter Care Teams Waste Water Or Water Plant Operator Relationship Specialty Start Date End Date Martinez Canseco MD [address] [place] [address] PCP - General Family Medicine 10/05/22 documented as of this encounter
--- OUTSIDE RECORDS SUMMARY | 2024-10-14 15:49 | XMS_ITS | Encounter Summary ---
Author Organization [employer] ([place], [place], [place], [place]) Address [address] [place] [address] Care Team Providers Care Customer Account Technician Name Role Phone Martinez Canseco MD Primary Care Provider [phone] Encounter Details Date Type Department Care Team (Late st Contact Info) Description 09/05/2018 Transcribed Document [facility] Family Medicine [address] [place] [address] ProviderIvan MD [address] [place], [place] [address] Social History Tobacco Use Types Packs/Day Years Used Date Smoking Tobacco: Never Assessed Sex and Gender Information Value Date Recorded Sex Assigned at Male 09/13/2021 8:33 PM CDT Legal Sex Male 8:33 PM CDT Gender Identity Male 09/13/2021 8:33 PM CDT Sexual Orientation Not on file documented as of this encounter Miscellaneous Notes * Cerner Conversion Note - Ivan Nino MD - 09/05/2018 2:35 PM CDT On Going Discharge Planning Entered On: 09/05/2018 14:38 EDT Performed On: 09/05/2018 14:35 EDT by JARET BAUM Rn-Buildings And Grounds SupervisorProcess Area Supervisor Progress Note Discharge Arrangements : Patient Post-Acute Information Patient Name: AUGUSTO PACHECO Gender: Male : 54 Age: 67 Years No Post-Acute Placement(s) Listed No Post-Acute Service(s) Listed No [place] Referral(s) Listed Discharge Options Discussed with Patient : DME, Home Health Does the Patient have a Floor to SNF Benefit? : Yes Is the Patient Meeting Medical Necessity : Yes JARET BAUM, Rn-Buildings And Grounds Supervisor - 09/05/2018 14:35 EDT Narrative Progress Note Narrative Progress Note : S/P Day 1 MVR Repair/CABG x 2 Remains vented; weaning gtts CM spoke with patient's daughter Olga who states her two brothers age 24 and 25 are in an out of patient's house; he primarily is alone. She anticipates patient will need to transition home with her or her aunt and will possibly need short-term rehab at [place], [place]). CM will discuss ongoing discharge planning with patient. Will need PT/OT orders when extubated. JARET BAUM Rn-Buildings And Grounds Supervisor - 09/05/2018 14:35 EDT Electronically signed by Destiny [facility] Conversion Core Carrier Cerner at 07/05/2022 8:31 PM CDT documented in this encounter Plan of Treatment Upcoming Encounters Date Type Department Care Team (Late st Contact Info) Description 10/27/2024 10:00 AM EDT Appointment [facility] MRI 1 [place] [id number] Adalberto Painting MD [address] [place] [address] 10/29/2024 10:30 AM EDT Audio - Telemedicine [facility] [address] [place] [address] [address] [place] [phone] Adalberto Painting MD [address] [place] [address] [address] [place] [address] documented as of this encounter Visit Diagnoses Not on filedocumented in this encounter Care Teams Customer Account Technician Relationship Specialty Start Date End Date Martinez Canseco MD [address] [place] [address] PCP - General Family Medicine 10/05/22 documented as of this encounter
--- OUTSIDE RECORDS SUMMARY | 2024-10-14 15:49 | XMS_ITS | Encounter Summary ---
Author Organization [employer] ([place], [place], [place], [place]) Address [address] [place] [address] Care Team Providers Care Esl Tutor Name Role Phone Martinez Canseco MD Primary Care Provider [phone] Encounter Details Date Type Department Care Team (Late st Contact Info) Description 09/03/2018 Transcribed Document [facility] [place] Medicine [address] [place] [address] ProviderIvan MD [address] [place] [address] Social History Tobacco Use Types Packs/Day Years Used Date Smoking Tobacco: Never Assessed Sex and Gender Information Value Date Recorded Sex Assigned at Male 09/13/2021 8:33 PM CDT Legal Sex Male 8:33 PM CDT Gender Identity Male 09/13/2021 8:33 PM CDT Sexual Orientation Not on file documented as of this encounter Miscellaneous Notes * Cerner Conversion Note - Ivan ProviderMD - 09/03/2018 8:05 PM CDT Spiritual Care Assessment Entered On: 09/04/2018 12:24 EDT Performed On: 09/04/2018 10:40 EDT by FRIEDA PIZANO General Information Initial Visit : No Referred by : Physician Referral Reason Comment : Pre-surgery visit Ministry Provided to : Patient, Family/Significant other Voodoo Preference : Religious, Geovanni Spiritual Leader Requested : Yes Voodoo Ritual/Sacrament Needed : Yes Religious Sacrament of the Sick/Anointing Needed : Yes FRIEDA PIZANO - 09/04/2018 12:20 EDT Spiritual Assessment Spiritual Assessment Comment/Summary Points : Pre-surgery visit. Daughter and brother present. Provided spiritual support. Contacted Kristy Lira for director sales at patient's request for confession and anointing. Spirital Assessment Comment/Summary Report : SPIRITUAL ASSESSMENT COMMENT/SUMMARY Spiritual Assessment Comment/Summary 09/02/18 15:03:00 Augusto welcomed visit from a middle stitcher, though he was soemwhat reluctant to talk about anything spiritual. His brother, Elpidio, is bedside providing excellent support. Elpidio plans to go back home tonight ([facility] Augusto's daughter plans to come tonight and stay with him in the room. Augusto is a practical person, with a dry wit humor. He seems to want to keep things a bit light hearted. Excellent conversation. Signed By: TL PETIT, FRIEDA Villanueva P - 09/04/2018 12:20 EDT Interventions Emotional Support : Empathic/Engaged listening, Family/Significant other supported Spiritual and Voodoo : Verify apurva group connection, watch leader/community contacted, Spiritual/Voodoo support provided FRIEDA PIZANO P - 09/04/2018 12:20 EDT documented in this encounter Plan of Treatment Upcoming Encounters Date Type Department Care Team (Late st Contact Info) Description 10/27/2024 10:00 AM EDT Appointment [facility] 1 [place] [address] Adalberto Painting MD [address] [place] [address] [address] 10/29/2024 10:30 AM EDT Audio - Telemedicine [facility] [address] [place] [address] [place] [address] Adalberto Painting MD [address] [place] [address] [address] [place] [address] documented as of this encounter Visit Diagnoses Not on filedocumented in this encounter Care Teams Esl Tutor Relationship Specialty Start Date End Date Martinez Canseco MD [address] [place] [address] PCP - General Family Medicine 10/05/22 documented as of this encounter
--- OUTSIDE RECORDS SUMMARY | 2024-10-14 15:49 | XMS_ITS | Encounter Summary ---
Author Organization [employer] ([place], [place], [place], [place]) Address [address] [place] [address] Care Team Providers Care Mailhouse Operator Name Role Phone Martinez Canseco MD Primary Care Provider [phone] Encounter Details Date Type Department Care Team (Late st Contact Info) Description 09/04/2018 Transcribed Document [facility] [place] Medicine [address] [place] [address] ProviderIvan MD [address] [place] [address] Social History Tobacco Use Types [...] Conversion Note - Ivan ProviderMD - 09/04/2018 1:00 PM CDT [facility] Main OR Preop Summary Primary Physician: ESVIN BUTTS MD-CAT Finalized Date/Time: 09/04/18 16:49:40 Pt. Name: AUGUSTO PACHECO/Sex: 1950 Male Med Rec #: [id number] Physician: ESVIN BUTTS MD-CAT Financial #: [id number] Pt. Type: I Room/Bed: /13 Admit/Disch: 09/02/18 14:21:00 - Institution: [facility] PreOp Case Times Entry 1 In Preop 09/04/18 12:25:00 Ready for Holding n/a Room Patient Ready for 09/04/18 14:18:00 Surgery Patient Out of Preop 09/04/18 16:50:00 Patient Out of n/a Holding Room Last Modified By: Trudy Alarcon RN 09/04/18 16:49:39 [facility] PreOp Case Times Audit 09/04/18 16:49:39 Aoc Operations Intelligence Officer: RAMEZALR Modifier: RAMEZALR <+> 1 Patient Out of Preop Finalized By: Trudy Alarcon, RN Document Signatures Signed By: Trudy Alarcon RN 09/04/18 16:49 Electronically signed by Destiny [facility] Conversion Technical Aid Cerner at 07/05/2022 8:40 PM CDT documented in this encounter Plan of Treatment Upcoming Encounters Date Type Department Care Team (Late st Contact Info) Description 10/27/2024 10:00 AM EDT [facility]ment [facility] 1 [place] [address] Adalberto Painting MD [address] [place] [address] [place] [address] 10/29/2024 10:30 AM EDT Audio - Telemedicine [facility] [address] [place] [address] [address] [place] [address] Adlaberto Painting MD [address] [place] [address] [address] [place] [address] documented as of this encounter Visit Diagnoses Not on filedocumented in this encounter Care Teams Mailhouse Operator Relationship Specialty Start Date End Date Martinez Canseco MD [address] [place] [address] PCP - General Family Medicine 10/05/22 documented as of this encounter
--- OUTSIDE RECORDS SUMMARY | 2024-10-14 15:49 | XMS_ITS | Encounter Summary ---
Author Organization [employer] ([place], [place], [place], [place]) Address [address] [place] [address] Care Team Providers Care Hydrogeologist Name Role Phone Martinez Canseco MD Primary Care Provider [phone] Encounter Details Date Type Department Care Team (Late st Contact Info) Description 09/04/2018 Transcribed Document [facility] [place] [place] [address] [place] [address] ProviderIvan MD [address] [place] [address] Social History Tobacco Use Types Packs/Day Years [...] Ivan ProviderMD - 09/04/2018 10:48 PM CDT Nutrition Assessment Entered On: 09/05/2018 10:19 EDT Performed On: 09/05/2018 10:10 EDT by [address]DI ZUNIGA RD, LD Nutrition Assessment Nutrition Assessment Reason : Automatic referral Current Nutrition Regimen Comment : 09/05: Rec'd consult for cardiac post op. Pt is s/p CABG and MVR yesterday. Remains intubated, on pressors and sedation. No plans for TF at this time. 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, HTN, COPD, HLD Meds: VitC, lipitor, colace, pepcid, lasix, MgSO4, senna Drips: precedex, insulin drip, propofol @ 22.2 ml/hr (586 kcal), vaso @ 0.07 units/min, epinephrine@ 0.05 mcg/kg/min, D5+1/4NS @ 30ml/hr (122 kcal) Labs: WBC 15.5, FSB, 193, 188, 162 Skin: no breakdown noted GI: no bm noted Diet: NPO Ht: 73 in Wt: 101.9 kg (09/04) BMI: 29.6 IBW: 83.6kg; 122% Estimated Needs (using ~20-25 kcal/kg adj weight, 1.2 gm prokg): 9462-1967 kcal; 120+ gm pro MAGDI ZUNIGA RD, CARROLL - 09/05/2018 10:10 EDT Nutrition Diagnoses Oral or Nutrition Support Intake : Inadequate oral intake Oral or Nutr Support Intake Related To : resp function + vent Oral or Nutr Support Intake Evidenced by : NPO, need for EN Oral or Nutrition Support Intake Status : Active MAGDI ZUNIGA RD, LD - 09/05/2018 10:10 EDT Nutrition Interventions Enteral/Parenteral Nutrition : Initiate enteral nutrition MAGDI ZUNIGA RD, CARRO[place] - 09/05/2018 10:10 EDT Monitoring/Evaluation Energy Intake : Total energy intake Protein Intake : Total protein Weight Status : Weight Maintanence Gastrointestinal Function : Bowel Function MAGDI ZUNIGA RD, LD - 09/05/2018 10:10 EDT Nutrition Recommendations Dietitian Recommendations : 1. When pt more hemodynamically stable, recommend initiating Vital high Protein @ 20ml/rh Goal: utilize the gut 2. Monitor TG level while on propofol Goal: wnls 3. Weigh pt 2x weekly Goal: no sig weight changes High Risk MAGDI ZUNIGA RD, C[place] - 09/05/2018 10:10 EDT documented in this encounter Plan of Treatment Upcoming Encounters Date Type Department Care Team (Late st Contact Info) Description 10/27/2024 10:00 [place] [address] Adalberto Painting MD [address] [facility] [address] [place] [address] 10/29/2024 10:30 AM EDT Audio - Telemedicine [facility] [address] [place] [address] [place] [phone] Adalberto Painting MD [address] [place] [address] [address] [place] [address] documented as of this encounter Visit Diagnoses Not on filedocumented in this encounter Care Teams Hydrogeologist Relationship Specialty Start Date End Date Martinez Canseco MD [address] [place] [address] PCP - General Family Medicine 10/05/22 documented as of this encounter
--- OUTSIDE RECORDS SUMMARY | 2024-10-14 15:49 | XMS_ITS | Encounter Summary ---
Author Organization [employer] ([place], [place], [place], [place]) Address [address] [place] [address] Care Team Providers Care Radiology Clerk Name Role Phone Martinez Canseco MD Primary Care Provider [phone] Encounter Details Date Type Department Care Team (Late st Contact Info) Description 09/02/2018 Transcribed Document [facility] [place] Family Medicine [address] [place] [address] ProviderIvan MD [address] [place] [address] Social History Tobacco Use Types Packs/Day Years Used Date Smoking Tobacco: Never Assessed Sex and Gender Information Value Date Recorded Sex Assigned at Male 09/13/2021 8:33 PM CDT Legal Sex Male 8:33 PM CDT Gender Identity Male 09/13/2021 8:33 PM CDT Sexual Orientation Not on file documented as of this encounter Miscellaneous Notes * Cerner Conversion Note - Ivan ProviderMD - 09/02/2018 2:20 PM CDT Admission History, Adult Entered On: 09/02/2018 15:00 EDT Performed On: 09/02/2018 14:20 EDT by Soni Bland RN Advance Directive Patient has Advance Directive *Q : No, patient refuses Advance Directive information Soni Bland RN - 09/02/2018 14:54 EDT Anesthesia/Transfusion History Family History of Anesthesia Reaction : Prior transfusion without reaction Blood Transfusion Acceptable to Patient : Yes Transfusion History : Prior anesthesia without reaction Family History of Anesthesia Reaction : None Soni Bland RN - 09/02/2018 14:54 EDT Functional Assessment Living Situation : Home Patient Lives With : Alone Persons Assisting Patient at Home : Alone Sensory Deficits : None Mobility Assistance Prior to Admission : Independent Current Home Treatments : None Home Equipment : None Soni Bland RN - 09/02/2018 14:54 EDT General Info Contact Password : Emmie Su Rn - 09/05/2018 5:57 EDT Want Family/Rep/Phys Notified of Admit : No Emergency Contact #1 : Manisha Emergency Contact #1 Emergency Contact #1 Relationship : brother Emergency Contact #2 : kathie Emergency Contact #2 Emergency Contact #2 Relationship : daughter Primary Language : Citizen Of [place] Communication Barrier : None Soni Bland RN - 09/02/2018 14:54 EDT Fall Risk Scales ABCs Fall Injury Risk Identification : None DUNN Hx Falls Immediate/Within 3 Months : No Dunn Secondary Diagnosis : Yes DUNN Use of Ambulatory Aid : Bed rest/Nurse assist DUNN IV Therapy or IV Access : Yes Lul Gait/Transferring : Weak Dunn Mental Status : Oriented to own ability Dunn Fall Risk Score : 45 DUNN Fall Scale Risk Level : 25-45 Medium Risk [place] Fall Interventions : Adequate lighting, Assistive devices within reach, Bed in low position, Call device within reach, Fall prevention handout/education per facility policy, Hourly comfort/safety rounds, Non-slip footwear, Personal items within reach, Reinforced to call for assistance before getting out of bed, Room free of clutter/spills, Upper side-rails up, Wheels locked, Wires/Cords secured Fall Moderate to High Risk Interventions : Visual cues in place Fall Risk Scale Calc Temp : 0 Soni Bland RN - 09/02/2018 14:54 EDT Health Histories Smoking Status : 10 or more cigarettes (1/2 pack or more)/day in last 30 days Smokeless Tobacco Status : Never Desires Tobacco Cessation Medication : Yes Soni Bland RN - 09/02/2018 14:54 EDT Social History (As Of: 09/02/2018 15:00:38 EDT) Height and Weight, Clinical Dosing Height Source : Stated Height Entry Format : [place] Height, Feet : 6 ft(Converted to: 183 cm, 72 Inch) Height, Inches : 1 Inch(Converted to: 0 ft 1 Inch, 2.54 cm) Clinical Height : 185.42 cm Weight Source : Bed scale Weight Entry Format : [place] Clinical Dosing Weight : 92.27 kg Weight, Pounds : 203 lb Body Surface Area (BSA) : 2.17 m2 Body Mass Index : 26.8 kg/m2 (HI) [place] Body Weight : 79 kg Soni Bland RN - 09/02/2018 14:54 EDT Infectious Disease History Active Surveillance Screen Assessment : Patient transferred from another hospital/ED Isolation Needed : Contact Soni Bland RN - 09/02/2018 15:06 EDT Infectious Disease History : None Fever/Chills Last 48 Hours : No Travel To Regions with Travel Advisories : No Travel Outside [place] Within Last 30 Days : No Contact With Traveler to Advisory Region : No Tuberculosis Symptoms : None Soni Bland RN - 09/02/2018 14:54 EDT Influenza Vaccine Asmt, Adult Previous Vaccines from Immunization Schedule : No qualifying data available. Influenza Immunization, Current Season : No Inactivated Flu Vaccine Contraindications : No contraindications to inactivated influenza vaccine Transplant Workup/Recent Transplant : No Order for Influenza Vaccine : Order for influenza vaccine sent to pharmacy Soni Bland RN - 09/02/2018 14:54 EDT Pneumococcal Vaccine Previous Vaccines from Immunization Schedule : No qualifying data available. Pneumonia Immunization Received : No Pneumococcal Risk Assessment < Age 65 : N/A- Patient 65 years of age or older Pneumococcal Vaccine Contraindications : No contraindications to pneumococcal vaccine Transplant Workup/Recent Transplant : No Order for Pneumococcal Vaccine : Order for pneumococcal vaccine sent to pharmacy Soni Bland RN - 09/02/2018 14:54 EDT Order Details Order Detail : N/A Soni Bland RN - 09/02/2018 15:06 EDT Nutrition History Eating Poorly Due to Decreased Appetite : No Unplanned Weight Loss in Past 3-6 Months : No Malnutrition Screening Tool Total(mal) : 0 Malnutrition Screening Tool Risk Level : Patient not at risk Soni Bland RN - 09/02/2018 14:54 EDT Psychosocial History Currently in Unsafe Situation : No Tried to Harm Yourself in the Past? : No Thoughts of Harming/Killing Yourself : No Soni Bland RN - 09/02/2018 14:54 EDT Sleep Apnea Risk Assmt Hx of Obstructive Sleep Apnea Diagnosis : No Snore Loudly : No Tired, Fatigued, or Sleepy During Day : No Observed Stopping Breathing During Sleep : No Have/Are Being Treated for Hypertension : Yes BMI Greater Than 35 kg/m2 : No Age over 50 Years Old : Yes Neck Circumference Greater Than 40 cm : No Gender Male : Yes STOP-BANG Sleep Apnea Risk Level Score : 3 Soni Bland RN - 09/02/2018 14:54 EDT Valuables and Belongings Valuables and Belongings : No clothing, No comfort items, No jewelry, No personal devices, No personal items, No assistive devices, No respiratory devices, No medications Soni Bland RN - 09/02/2018 14:54 EDT Electronically signed by [facility] Conversion Bullet Casting Operator Cerner at 07/05/2022 8:52 PM CDT documented in this encounter Plan of Treatment Upcoming Encounters Date Type Department Care Team (Late st Contact Info) Description 10/27/2024 10:00 AM EDT Appointment [facility] MRI 1 [place] [phone] Adalberto Painting MD [address] [place] [address] 10/29/2024 10:30 AM EDT Audio - Telemedicine [facility] [address] [place] [address] [place] [phone] Adalberto Painting MD [address] [place] [address] [address] documented as of this encounter Visit Diagnoses Not on filedocumented in this encounter Care Teams Radiology Clerk Relationship Specialty Start Date End Date Martinez Canseco MD [address] [place] [address] PCP - General Family Medicine 10/05/22 documented as of this encounter
--- OUTSIDE RECORDS SUMMARY | 2024-10-14 15:49 | XMS_ITS | Encounter Summary ---
Author Organization [employer] ([place], [place], [place], [place]) Address [address] [place] [address] Care Team Providers Care Golf Sales Associate Name Role Phone Martinez Canseco MD Primary Care Provider [phone] Encounter Details Date Type Department Care Team (Late st Contact Info) Description 09/11/2018 Transcribed Document [facility] [place] [address] [place] [address] ProviderIvan MD [address] [place] [address] Social History Tobacco Use Types Packs/Day Years Used Date Smoking Tobacco: Never Assessed Sex and Gender Information Value Date Recorded Sex Assigned at Male 09/13/2021 8:33 PM CDT Legal Sex Male 8:33 PM CDT Gender Identity Male 09/13/2021 8:33 PM CDT Sexual Orientation Not on file documented as of this encounter Miscellaneous Notes * Cerner Conversion Note - Ivan ProviderMD - 09/11/2018 1:00 PM CDT [facility] Endo PreOp Summary Primary Physician: ARLETTE DE JESUS MD Finalized Date/Time: 09/11/18 08:07:13 Pt. Name: AUGUSTO PACHECO/Sex: 1950 Male Med Rec #: [id number] Physician: ESVIN BUTTS MD-CAT Financial #: [id number] Pt. Type: I Room/Bed: [facility]/1 Admit/Disch: 09/02/18 14:21:00 - Institution: [facility] Endo PreOp Case Times Entry 1 In Preop 09/11/18 08:02:00 Ready for Holding n/a Room Patient Ready for n/a Surgery Patient Out of Preop 09/11/18 08:07:00 Patient Out of n/a Holding Room Last Modified By: SUSHMA LOPEZ RN 09/11/18 08:07:11 [facility] Endo PreOp Case Times Audit 09/11/18 08:07:11 Distribution Associate: SPENCEAM Modifier: SPENCEAM <+> 1 Patient Out of Preop Finalized By: SUSHMA LOPEZ, RN Document Signatures Signed By: SUSHMA LOPEZ RN 09/11/18 08:07 documented in this encounter Plan of Treatment Upcoming Encounters Date Type Department Care Team (Late st Contact Info) Description 10/27/2024 10:00 AM EDT Appointment [facility] [address] [place] [address] Adalberto Painting MD [address] [place] [address] [address] [place] [address] 10/29/2024 10:30 AM EDT Audio - Telemedicine [facility] [address] [place] [address] [address] [place] [address] Adalberto Painting MD [address] [place] [address] [address] [place] [address] documented as of this encounter Visit Diagnoses Not on filedocumented in this encounter Care Teams Golf Sales Associate Relationship Specialty Start Date End Date Martinez Canseco MD [address] [place] [address] PCP - General Family Medicine 10/05/22 documented as of this encounter
--- OUTSIDE RECORDS SUMMARY | 2024-10-14 15:49 | XMS_ITS | Encounter Summary ---
Author Organization [employer] ([place], [place], [place], [place]) Address [address] [place] [address] Care Team Providers Care Web Sizer Name Role Phone Martinez Canseco MD Primary Care Provider [phone] Encounter Details Date Type Department Care Team (Late st Contact Info) Description 09/12/2018 Transcribed Document [facility] [place] Family Medicine [address] [place] [address] ProviderIvan MD [address] [place], [place] [address] Social History Tobacco Use Types Packs/Day Years Used Date Smoking Tobacco: Never Assessed Sex and Gender Information Value Date Recorded Sex Assigned at Male 09/13/2021 8:33 PM CDT Legal Sex Male 8:33 PM CDT Gender Identity Male 09/13/2021 8:33 PM CDT Sexual Orientation Not on file documented as of this encounter Miscellaneous Notes * Cerner Conversion Note - Ivan ProviderMD - 09/12/2018 5:00 AM CDT Chart Check - Review Order Profile Entered On: 09/12/2018 3:12 EDT Performed On: 09/12/2018 5:00 EDT by Rosa Elena Mancia, RN Chart Check Powerplans Initiated/Discontinued as Appropriate : Yes All Active Orders Reviewed : Yes Rosa Elena Mancia, RN - 09/12/2018 3:12 EDT documented in this encounter Plan of Treatment Upcoming Encounters Date Type Department Care Team (Late st Contact Info) Description 10/27/2024 10:00 AM EDT Appointment [facility] MRI 1 [place] [address] Adalberto Painting MD [address] [facility] [address] [place] [phone] 10/29/2024 10:30 AM EDT Audio - Telemedicine [facility] [address] [place] [address] [address] [place] [address] Adalberto Painting MD [address] [facility] [address] [place] [phone] documented as of this encounter Visit Diagnoses Not on filedocumented in this encounter Care Teams Web Sizer Relationship Specialty Start Date End Date Martinez Canseco MD [address] [place] [address] PCP - General Family Medicine 10/05/22 documented as of this encounter
--- OUTSIDE RECORDS SUMMARY | 2024-10-14 15:49 | XMS_ITS | Clinical Summary ---
Author Organization [facility] Address [address] [place] [address] Care Team Providers Care Event Specialist Name Role Phone Ernesto Daniel MD Primary Care Provider [phone] Allergies No known active allergies Medications aspirin [...] hyperlipidemia 06/20/2022 Coronary artery disease invo lving k[place] coronary artery of [place] heart without angina pectoris 06/20/2022 Obesity (BMI [...] drink first t rola in the morning (EYE-DIETITIAN TEACHING) to steady your nerves or to get [...] UKY-Zoster Vaccines (2 of 2) 06/02/2022 04/07/2022 [id number] Vaccine ( season) 2023 04/07/2022, 07/20/2021, 01/21/2021, [...] complete this topic Insurance MEDICARE GENERIC COMMERCIAL Advance Directives * Full Code (Latest Code Status on File) Date Activated Date Inactivated Comments 06/20/2022 6:33 AM 06/24/2022 7:08 PM Question Answer Comments Patient has decision-making capacity? Yes Care Teams Event Specialist Relationship Specialty Start Date End Date Ernesto Daniel MD [address] [place] [address] PCP - General 06/20/22
--- OUTSIDE RECORDS SUMMARY | 2024-10-14 15:49 | XMS_ITS | Encounter Summary ---
Author Organization [employer] ([place], [place], [place], [place]) Address [address] [place] [address] Care Team Providers Care Field Supervisor Name Role Phone Martinez Canseco MD Primary Care Provider [phone] Encounter Details Date Type Department Care Team (Late st Contact Info) Description 09/04/2018 Transcribed Document [facility] [place] Family Medicine [address] [place] [address] ProviderIvan MD [address] [place], [place] [address] Social History Tobacco Use Types Packs/Day Years Used Date Smoking Tobacco: Never Assessed Sex and Gender Information Value Date Recorded Sex Assigned at Male 09/13/2021 8:33 PM CDT Legal Sex Male 8:33 PM CDT Gender Identity Male 09/13/2021 8:33 PM CDT Sexual Orientation Not on file documented as of this encounter Miscellaneous Notes * Cerner Conversion Note - Ivan ProviderMD - 09/04/2018 1:33 PM CDT Pain Assessment Entered On: 09/04/2018 13:59 EDT Performed On: 09/04/2018 14:03 EDT by Trudy Alarcon RN Intervention Information: fentaNYL Performed by Trudy Alarcon RN on 09/04/2018 13:33:00 EDT fentaNYL,100mcg IV Push,Peripheral Line 1 Pain Assessment Pain Scale Used : 0-10 Scale Trudy Alarcon RN - 09/04/2018 13:59 EDT Pain Scale Intensity : Non pain medication administration Trudy Alarcon RN - 09/04/2018 13:59 EDT Image 4 - Images currently included in the form version of this document have not been included in the text rendition version of the form. documented in this encounter Plan of Treatment Upcoming Encounters Date Type Department Care Team (Late st Contact Info) Description 10/27/2024 10:00 AM EDT Appointment [facility] 1 [place] [address] Adalberto Painting MD [address] [place] [address] [address] [place] [address] 10/29/2024 10:30 AM EDT Audio - Telemedicine [facility] [address] [place] [address] [place] [phone] Adalberto Painting MD [address] [place] [address] [address] [place] [address] documented as of this encounter Visit Diagnoses Not on filedocumented in this encounter Care Teams Field Supervisor Relationship Specialty Start Date End Date Martinez Canseco MD [address] [place] [address] PCP - General Family Medicine 10/05/22 documented as of this encounter
--- OUTSIDE RECORDS SUMMARY | 2024-10-14 15:49 | XMS_ITS | Encounter Summary ---
Author Organization [employer] ([place], [place], [place], [place]) Address [address] [place] [address] Care Team Providers Care Solution Developer Name Role Phone Martinez Canseco MD Primary Care Provider [phone] Encounter Details Date Type Department Care Team (Late st Contact Info) Description 09/04/[address] [facility] [place] Family Medicine [address] [place] [address] ProviderIvan MD [address] [place] [address] Social History Tobacco Use Types [...] Ivan ProviderMD - 09/04/2018 10:48 PM CDT [facility] Entered On: 09/09/2018 8:16 EDT Performed On: 09/04/2018 22:48 EDT by Jerrica Whitehead Rn-Clinical Coordinator I Cardiac and Pulmonary Outpatient [facility] Patient is scheduled for Phase 2 Cardiac rehab : Patient provided Cardiac Rehab Phase 2 facilities close to home Cardiac Outpatient Rehab Evaluation Comment : Referral for CR sent to [facility] per caseworker. Jerrica Whitehead Rn-Clinical Coordinator I - 09/09/2018 8:16 EDT Electronically signed by [facility] Conversion Mental Retardation Nurse Cerner at 07/05/2022 8:36 PM CDT documented in this encounter Plan of Treatment Upcoming Encounters Date Type Department Care Team (Late st Contact Info) Description 10/27/2024 10:00 AM EDT Appointment [facility] MRI [address] [place] [address] [place] [address] [place] [address] [address] [place] [address] 10/29/2024 10:30 AM EDT Audio - Telemedicine [facility] [address] [place] [address] [place] [phone] Adalberto Painting MD [address] [place] [address] [address] [place] [address] documented as of this encounter Visit Diagnoses Not on filedocumented in this encounter Care Teams Solution Developer Relationship Specialty Start Date End Date Martinez Canseco MD [address] [place] [address] PCP - General Family Medicine 10/05/22 documented as of this encounter
--- OUTSIDE RECORDS SUMMARY | 2024-10-14 15:49 | XMS_ITS | Encounter Summary ---
Author Organization [employer] ([place], [place], [place], [place]) Address [address] [place] [address] Care Team Providers Care Swimming Professor Name Role Phone Martinez Canseco MD Primary Care Provider [phone] Encounter Details Date Type Department Care Team (Late st Contact Info) Description 09/11/2018 Transcribed Document [facility] [address] [place] [address] [address] [place] [address] [place] [address] [address] [place] [address] Social History Tobacco Use Types [...] Conversion Note - Leeroy Garvey MD - 09/11/2018 9:39 AM EDT Patient: AUGUSTO PACHECO Age: 67 years Sex: Male : 1950 Associated Diagnoses: None Author: LEEROY GARVEY MD Procedure Bronchoscopy procedure Date/ Time: 09/11/2018 08:40:00. Confirmed: patient, procedure, side, site, safety procedures followed. Performed by: LEEROY GARVEY MD, semiconductor packages platemaker. Informed consent: not signed by patient. Indication: abnormal chest x-ray, pneumonia, worsening condition, RLL> LLL collapse , before start pt was on 12 liter oxygen . Preparation: NPO, pre-medications given moderate sedation, pre-oxygenation 1 %. Technique: type of bronchoscope flexible, route endotracheal tube, monitoring during procedure (blood pressure monitoring, film splicer, continuous pulse oximetry). Findings: procedure done with anesthesia team, using ETT: 9 general anesthesia - trachea : no secretions noted with no erythema, and edema - Rt bronchial tree: *no gross endo bronchial lesions noted LIVIER: patent with extensive secretions RIB : patent with extensive secretions RUL: patent seg and sub segs , mild secretion, no erythema RML, RLL : occluded segs and upsegs partially moderate mucoid thick secretions noted with no erythema, and edema , after therapeutic aspiration : patent segs and sub segs Lt bronchial tree: *no gross endo bronchial lesions, patent LMS NEGRITO: Lingula patent seg and sub segs , mild secretion, no erythema LLL: occluded segs and upsegs partially moderate mucoid thick secretions noted with no erythema, and edema , after therapeutic aspiration : patent segs and sub segs s/p therapeutic aspiration of secretions using 5 cc NS flushes for washings specimens: - BAL RLL 50 cc NS given with a return of 25 cc mucoid cloudy fluid with mucous plugs . Procedure tolerated: well. Complications: none. post op dx: - partially occluded LIVIER RIB, and occluded segs for RLL and partially RML and LLL with thick mucoid secretions, no erythema s/p therapeutic aspiration . documented in this encounter Plan of Treatment Upcoming Encounters Date Type Department Care Team (Late st Contact Info) Description 10/27/2024 10:00 AM EDT Appointment [facility] 1 [place] [address] Adalberto Painting MD [address] [place] [address] [address] [place], [place] [id number] 10/29/2024 10:30 AM EDT Audio - Telemedicine [facility] [address] [facility] [address] [place] [address] Adalberto Painting MD [address] [facility] [address] [place] [address] documented as of this encounter Visit Diagnoses Not on filedocumented in this encounter Care Teams Swimming Professor Relationship Specialty Start Date End Date Martinez Canseco MD [address] [place] [address] PCP - General Family Medicine 10/05/22 documented as of this encounter
--- OUTSIDE RECORDS SUMMARY | 2024-10-14 15:49 | XMS_ITS | Encounter Summary ---
Author Organization [employer] ([place], [place], [place], [place]) Address [address] [place] [address] Care Team Providers Care Team Driver Name Role Phone Martinez Canseco MD Primary Care Provider [phone] Encounter Details Date Type Department Care Team (Late st Contact Info) Description 09/05/2018 Transcribed Document [facility] Family Medicine [address] [place] [address] ProviderIvan MD [address] [place] [address] Social History Tobacco Use Types [...] Note - Ivan ProviderMD - 09/05/2018 5:00 PM CDT Chart Check - Review Order Profile Entered On: 09/05/2018 19:55 EDT Performed On: 09/05/2018 17:00 EDT by DESIREE Figueroa, RN Chart Check Powerplans Initiated/Discontinued as Appropriate : Yes All Active Orders Reviewed : Yes DESIREE Figueroa, RN - 09/05/2018 19:55 EDT Electronically signed by Destiny [facility] Conversion Oncology Nurse Navigator Cerner at 07/05/2022 8:52 PM CDT documented in this encounter Plan of Treatment Upcoming Encounters Date Type Department Care Team (Late st Contact Info) Description 10/27/2024 10:00 AM EDT Appointment [facility] MRI 1 [place] [address] Adalberto Painting MD [address] [facility] [address] [place] [phone] 10/29/2024 10:30 AM EDT Audio - Telemedicine [facility] [address] [place] [address] [address] [place] [address] Adalberto Painting MD [address] [facility] [address] [place] [phone] documented as of this encounter Visit Diagnoses Not on filedocumented in this encounter Care Teams Team Driver Relationship Specialty Start Date End Date Martinez Canseco MD [address] [place] [address] PCP - General Family Medicine 10/05/22 documented as of this encounter
--- OUTSIDE RECORDS SUMMARY | 2024-10-14 15:49 | XMS_ITS | Encounter Summary ---
Author Organization [employer] ([place], [place], [place], [place]) Address [address] [place] [address] Care Team Providers Care Cardiothoracic Physiotherapist Name Role Phone Martinez Canseco MD Primary Care Provider [phone] Encounter Details Date Type Department Care Team (Late st Contact Info) Description 09/04/2018 Transcribed Document [facility] Family Medicine [address] [place] [address] ProviderIvan MD [address] [place] [address] Social History Tobacco Use Types Packs/Day Years Used Date Smoking Tobacco: Never Assessed Sex and Gender Information Value Date Recorded Sex Assigned at Male 09/13/2021 8:33 PM CDT Legal Sex Male 8:33 PM CDT Gender Identity Male 09/13/2021 8:33 PM CDT Sexual Orientation Not on file documented as of this encounter Miscellaneous Notes * Cerner Conversion Note - Ivan ProviderMD - 09/04/2018 10:15 AM CDT Initial Discharge Planning Entered On: 09/04/2018 10:20 EDT Performed On: 09/04/2018 10:15 EDT by KYLIE LARIOS, EDUARDO-Fiber Designer Initial Assessment I Previously Documented Living Environment : No qualifying data available. Living Situation : Home Patient Lives With : Alone Is the Patient a Caregiver at Home? : No Employment/Vocation : retired Emergency Contact #1 : Elvismiguel Emergency Contact #1 Emergency Contact #1 Relationship : brother Emergency Contact #2 : kathie Emergency Contact #2 Emergency Contact #2 Relationship : daughter Enter Doctors Name : Clemente Mendez Does Patient have PCP Listed? : Yes Patient's Home Caregiver Name/Relationship : Kathie Hansen--dtr Patient's Home Caregiver Medical Durable Power of Technical Consultant Name : No Legal Guardian : No Is Guardianship Needed : No KYLIE LARIOS RN-Fiber Designer - 09/04/2018 10:15 EDT Initial Assessment II Sensory and Motor Deficits : None Current Home Treatments and Equipment : None Does the Patient have a Floor to SNF Benefit? : Yes KYLIE LARIOS RN-Fiber Designer - 09/04/2018 10:15 EDT Discharge Needs I Anticipated Discharge Date : 09/08/2018 EDT Anticipated Discharge To, CM : Home independently, Home with family care Current Home Treatment/Equipment : Current Home Treatment/Equipment No qualifying data available. Post Acute/Home Treatments : None KYLIE LARIOS RN-Fiber Designer - 09/04/2018 10:15 EDT Discharge Needs II Professional Skilled Services : Professional Skilled Services No qualifying data available. Needs Assistance with Transportation : No Discharge Options Discussed with Patient : DME, Home Health KYLIE LARIOS RN-Fiber Designer - 09/04/2018 10:15 EDT Narrative Note Narrative Note : For CABG 09/04. Will transfer to critical care unit then back to [facility]. he is open to cardiac rehab. Discussed potential need for DME(o2) and HH. Will reassess need after procedure. KYLIE LARIOS RN-Fiber Designer - 09/04/2018 10:15 EDT documented in this encounter Plan of Treatment Upcoming Encounters Date Type Department Care Team (Late st Contact Info) Description 10/27/2024 10:00 AM EDT Appointment [address] [address] Adalberto Painting MD [address] [place] [address] [place] [address] 10/29/2024 10:30 AM EDT Audio - Telemedicine [facility] [address] [facility] [address] [place] [address] Adalberto Painting MD [address] [facility] [address] [place] [address] documented as of this encounter Visit Diagnoses Not on filedocumented in this encounter Care Teams Cardiothoracic Physiotherapist Relationship Specialty Start Date End Date Martinez Canseco MD [address] [place] [address] PCP - General Family Medicine 10/05/22 documented as of this encounter
--- OUTSIDE RECORDS SUMMARY | 2024-10-14 15:49 | XMS_ITS | Encounter Summary ---
Author Organization [employer] ([place], [place], [place], [place]) Address [address] [facility] [address] [facility] [place] [address] Care Team Providers Care Digital Strategy Specialist Name Role Phone Martinez Canseco MD Primary Care Provider [phone] Encounter Details Date Type Department Care Team (Late st Contact Info) Description 09/05/2018 Transcribed Document [facility] Family Medicine [address] [place] [address] ProviderIvan MD [address] [place], [place] [address] Social History Tobacco Use Types Packs/Day Years Used Date Smoking Tobacco: Never Assessed Sex and Gender Information Value Date Recorded Sex Assigned at Male 09/13/2021 8:33 PM CDT Legal Sex Male 8:33 PM CDT Gender Identity Male 09/13/2021 8:33 PM CDT Sexual Orientation Not on file documented as of this encounter Miscellaneous Notes * Cerner Conversion Note - Ivan Nino MD - 09/05/2018 8:21 AM CDT Patient: AUGUSTO PACHECO Age: 67 years Sex: Male : 1950 Associated Diagnoses: Unstable angina; Recent Pneumonia; Alcohol use 3 beers daily; Severe mitral regurgitation; Nicotine dependence with withdrawal; HLD (hyperlipidemia); HTN (hypertension); Diverticulitis with history of colostomy and recent colostomy reversal; Severe COPD and emphysematous lungs; CAD (coronary artery disease), hopi coronary artery Author: DIOMEDES KLEIN [place] Basic Information Mr. Pacheco is a [...] is not currently available. He was transferred here for evaluation of coronary artery disease and mitral regurgitation. He is currently resting in bed free of chest pain. He has not been on any blood thinners. POD#1 S/P Mitral valve repair using a 30 mm Medtronic CG annuloplasty band and CABGx2 Subjective 09/03: JESUSITA this am, no SOB or chest pain 09/04: Mitral Valve Repair and CABGx2 09/05: POD#1 Intubated and sedated on Propofol and Precedex. He is very restless. He is responsive. Health Status Allergies: Allergic Reactions (Selected) No Known Allergies Current medications: Propofol 50mcg/kg/min Precedex .5mcg/kg/hr Insulin 4U/hr Epi .04mcg/kg/min Vaso .07U/min Objective Intake and Output 24 hour intake: Total 1114 ml 24 hour output: Urinary catheter 785 ml, Total 1005 ml MT 150ml Bilateral CT 70ml / 12 hours VS/Measurements Vital Measurements 09/05/2018 8:02 EDT Heart Rate Monitored 62 bpm Oxygen Saturation 96 % 09/05/2018 7:00 EDT Systolic BP, Arterial Line 1 101 mmHg Diastolic BP, Arterial Line 1 53 mmHg LOW Mean Arterial Pressure, Line 1 69 mmHg Oxygen Therapy Mode Mechanical ventilation FiO2 70 % 09/05/2018 6:00 EDT Temperature, Fahrenheit 98.1 Deg F Clinical Temperature, C 36.7 Deg C General: Intubated and sedated. HENT: Normocephalic. Neck: Supple. Respiratory: Respirations are non-labored. Breath sounds: Diminished. Cardiovascular: Normal rate, 71 beats per minute, Regular rhythm, S1, S2, No edema. Gastrointestinal: Soft. Integumentary: Warm, Dry, Muniz, Aquacel dressing is C/D/I. Psychiatric: Behavior: Restless. Review / Management Results review: SEP 05 03:55 139 109 14 / H 180 4.7 23 0.90 \ SEP 05 03:55 \ L 11.9 / H 15.5 177 / L 35.0 \. Radiology results Radiology Results (Last 48 hours) [id number] -- 09/02/2018 14:21 CR Chest 1 Vw [...] and dictated by Dr. Joey Miller.Transcribed by KEREN RodriguezCI have personally viewed, interpreted and dictated the examination. Ihave read and agree with the above final transcribed report. JESUSITA 09/03/18 Structurally normal mitral valve. Moderate-severe mitral regurgitation. The jet is centrally-located and centrally-directed. No masses or vegetations seen. Impression and Plan Moderate to severe mitral regurgitation CAD HTN HLP Recent pneumonia COPD ongoing tobacco abuse ETOH abuse 09/03: Carotid duplex and PFTs JESUSITA - moderate to severe MR 09/04: MV repair and CABGx2 09/05: POD#1 Intubated Consult Pulm for vent management Lasix 60mg IV x 1 Wean gtts as tolerated EF 40% per echo 09/04/18 DVT Prophylaxis: SCDs Diagnosis Unstable angina - Admitting, Medical. Recent Pneumonia - Pre-Op Diagnosis, Medical. Alcohol use 3 beers daily - Pre-Op Diagnosis, Medical. Severe mitral regurgitation - Admitting, Medical. Severe mitral regurgitation - Discharge, Medical. Nicotine dependence with withdrawal - Pre-Op Diagnosis, Medical. HLD (hyperlipidemia) - Pre-Op Diagnosis, Medical. HTN (hypertension) - Pre-Op Diagnosis, Medical. Diverticulitis with history of colostomy and recent colostomy reversal - Pre-Op Diagnosis, Medical. Severe COPD and emphysematous lungs - Pre-Op Diagnosis, Medical. CAD (coronary artery disease), hopi coronary artery - Admitting, Medical. CAD (coronary artery disease), hopi coronary artery - Discharge, Medical. documented in this encounter Plan of Treatment Upcoming Encounters Date Type Department Care Team (Late st Contact Info) Description 10/27/2024 10:00 AM EDT Appointment [facility] MRI 1 [place] [address] Adalberto Painting MD [address] [place] [address] [address] [place] [address] 10/29/2024 10:30 AM EDT Audio - Telemedicine [facility] [address] [place] [address] [address] [place] [address] [place] [address] [place] [address] [address] [place] [address] documented as of this encounter Visit Diagnoses Not on filedocumented in this encounter Care Teams Digital Strategy Specialist Relationship Specialty Start Date End Date Martinez Canseco MD [address] [place] [address] PCP - General Family Medicine 10/05/22 documented as of this encounter
--- OUTSIDE RECORDS SUMMARY | 2024-10-14 15:49 | XMS_ITS | Encounter Summary ---
Author Organization [employer] ([place], [place], [place], [place]) Address [address] [place] [address] Care Team Providers Care Well Logging Operator Mud Analysis Name Role Phone Martinez Canseco MD Primary Care Provider [phone] Encounter Details Date Type Department Care Team (Late st Contact Info) Description 09/12/2018 Transcribed Document [facility] [place] [address] [place] [address] ProviderIvan MD [address] [place] [address] Social History Tobacco Use Types [...] Conversion Note - Ivan Nino MD - 09/12/2018 12:05 PM CDT Sepsis Screening Tool Entered On: 09/12/2018 13:21 EDT Performed On: 09/12/2018 12:05 EDT by Hope Troy RN Provider Notification Provider Notified of Concerns/Results : SIRS/Sepsis Alert Provider Response : Orders received Provider Notified Name : FALLON JAY APRN-MARISOL Rapid Response Team Called : No Hope Troy RN - 09/12/2018 13:20 EDT Electronically signed by Destiny [facility] Conversion Endoscopy Support Specialist Cerner at 07/05/2022 8:32 PM CDT documented in this encounter Plan of Treatment Upcoming Encounters Date Type Department Care Team (Late st Contact Info) Description 10/27/2024 10:00 AM EDT Appointment [facility] MRI 1 [place] [address] Adalberto Painting MD [address] [facility] [address] [place] [address] 10/29/2024 10:30 AM EDT Audio - Telemedicine [facility] [address] [facility] [address] [place] [address] [place] [address] [place] [address] [address] [place] [phone] documented as of this encounter Visit Diagnoses Not on filedocumented in this encounter Care Teams Well Logging Operator Mud Analysis Relationship Specialty Start Date End Date Martinez Canseco MD [address] [place] [address] PCP - General Family Medicine 10/05/22 documented as of this encounter
--- OUTSIDE RECORDS SUMMARY | 2024-10-14 15:49 | XMS_ITS | Encounter Summary ---
Author Organization [employer] ([place], [place], [place], [place]) Address [address] [place] [address] Care Team Providers Care Anodize Machine Operator Name Role Phone Martinez Canseco MD Primary Care Provider [phone] Encounter Details Date Type Department Care Team (Late st Contact Info) Description 09/04/2018 Transcribed Document [facility] [place] Medicine [address] [place] [address] ProviderIvan MD [address] [place] [address] Social History Tobacco Use Types [...] Conversion Note - Ivan ProviderMD - 09/04/2018 2:11 PM CDT Procedural Documentation Entered On: 09/04/2018 14:14 EDT Performed On: 09/04/2018 14:11 EDT by Trudy Alarcon resort manager Documentation Procedure to be Performed : right radial arterial line. Left SWAN. Time Out Pause Time : 09/04/2018 13:33 EDT All Activity Suspended : Yes Team Verbally Confirms Information : Correct patient identity, Correct side and site are marked, Consent form is present and accurate, Agreement on the procedure to be done, Correct patient position, Relevant images/results properly labeled/appropriately displayed, Confirm antibiotics have been administered, Confirm the skin prep has dried, Confirm prosthesis/implant/device is present, Performed in location of procedure after prepped/draped, Performed before each procedure if multiple procedures, Reconcile problems if responses among team members differ Procedure Performed : right radial arterial line, left SWAN Proper Use of Sterile Apparel per Policy : Yes Procedure Case Attendee : FRED GREEN MD Procedure Case Attendee Role : Anesthesiologist Procedure Case Attendee Role 2 : resort manager Case Attendee 2 : RISHI PEREYRA RN Procedure Case Attendee Role 3 : resort manager Case Attendee 3 : Trudy Alarcon RN Ramezankhani, Lesley R, RN - 09/04/2018 14:11 EDT Kenneth Level I Post Anesthesia Assessment Kenneth I Activity Status : Moves 4 extremities voluntarily or on command Kenneth l Respiratory Component : Able to deep breathe and cough freely Kenneth I Circulation Component : BP 20% of preanesthetic level Kenneth I Consciousness : Fully awake Kenneth l Oxygen Saturation : Needs oxygen to maintain > 92% Kenneth l Score : 9 Trudy Alarcon RN - 09/04/2018 14:11 EDT Vital Measurements Pulse Method : Arterial line Pulse Source : Arterial Peripheral Pulse Rate : 77 bpm Respiratory Rate : 14 Breaths/Min Systolic Blood Pressure : 127 mmHg Diastolic Blood Pressure : 62 mmHg Oxygen Saturation : 97 % Oxygen Therapy Mode : Nasal cannula Oxygen Flow Rate : 2 Liter/Min Trudy Alarcon RN - 09/04/2018 14:11 EDT Oxygen Therapy Oxygen Titrated : No Oxygen Therapy Mode : Nasal cannula Oxygen Flow Rate : 2 Liter/Min Pulse Oximeter Probe Site : Hand, right O2 Saturation Monitoring Frequency : Continuous Oxygen Saturation : 97 % Oxygen Humidification : None Trudy Alarcon RN - 09/04/2018 14:11 EDT documented in this encounter Plan of Treatment Upcoming Encounters Date Type Department Care Team (Late st Contact Info) Description 10/27/2024 10:00 AM EDT Appointment [address] [address] Adalberto Painting MD [address] [place] [address] [address] [place] [address] 10/29/2024 10:30 AM EDT Audio - Telemedicine [facility] [address] [facility] [address] [place] [address] Adalberto Painting MD [address] [facility] [address] [place], [place] [phone] documented as of this encounter Visit Diagnoses Not on filedocumented in this encounter Care Teams Anodize Machine Operator Relationship Specialty Start Date End Date Martinez Canseco MD [address] [place] [address] PCP - General Family Medicine 10/05/22 documented as of this encounter
--- OUTSIDE RECORDS SUMMARY | 2024-10-14 15:49 | XMS_ITS | Encounter Summary ---
Author Organization [employer] ([place], [place], [place], [place]) Address [address] [place] [address] Care Team Providers Care Watch Engineer Name Role Phone Martinez Canseco MD Primary Care Provider [phone] Encounter Details Date Type Department Care Team (Late st Contact Info) Description 09/05/2018 Transcribed Document [facility] Family Medicine [address] [place] [address] ProviderIvan MD [address] [place] [address] Social History Tobacco Use Types Packs/Day Years Used Date Smoking Tobacco: Never Assessed Sex and Gender Information Value Date Recorded Sex Assigned at Male 09/13/2021 8:33 PM CDT Legal Sex Male 8:33 PM CDT Gender Identity Male 09/13/2021 8:33 PM CDT Sexual Orientation Not on file documented as of this encounter Miscellaneous Notes * [employer] Conversion Note - Ivan ProviderMD - 09/05/2018 11:15 PM CDT Sepsis Screening Tool Entered On: 09/05/2018 23:41 EDT Performed On: 09/05/2018 23:15 EDT by Meenakshi Gu RN Provider Notification Provider Not Notified of Critical Result Value : Yes Provider Not Notified Reason : No significant change from prior results warranting no tx Results to Provider Comment : alert triggered based on low MAP (orders exist for vasopressors) and RR>21 (ventilator is set to 23) Meenakshi Gu RN - 09/05/2018 23:40 EDT Electronically signed by [facility] Conversion Certified Peer Specialist Cerner at 07/05/2022 8:32 PM CDT documented in this encounter Plan of Treatment Upcoming Encounters Date Type Department Care Team (Late st Contact Info) Description 10/27/2024 10:00 AM EDT Appointment [facility] 1 [place] [address] [place] [address] [place] [address] [address] [place] [address] 10/29/2024 10:30 AM EDT Audio - Telemedicine [facility] [address] [place] [address] [place] [address] Adalberto Painting MD [address] [place] [address] [address] [place] [address] documented as of this encounter Visit Diagnoses Not on filedocumented in this encounter Care Teams Watch Engineer Relationship Specialty Start Date End Date Martinez Canseco MD [address] [place] [address] PCP - General Family Medicine 10/05/22 documented as of this encounter
--- OUTSIDE RECORDS SUMMARY | 2024-10-14 15:49 | XMS_ITS | Encounter Summary ---
Author Organization [employer] ([place], [place], [place], [place]) Address [address] [place] [address] Care Team Providers Care Track Sweeper Name Role Phone Martinez Canseco MD Primary Care Provider [phone] Encounter Details Date Type Department Care Team (Late st Contact Info) Description 09/12/2018 Transcribed Document [facility] Family Medicine [address] [place] [address] ProviderIvan MD [address] [place] [address] Social History Tobacco Use Types [...] Note - Ivan ProviderMD - 09/12/2018 5:00 PM CDT Chart Check - Review Order Profile Entered On: 09/12/2018 17:35 EDT Performed On: 09/12/2018 17:00 EDT by Hope Troy, RN Chart Check Powerplans Initiated/Discontinued as Appropriate : Yes All Active Orders Reviewed : Yes Hope Troy, RN - 09/12/2018 17:35 EDT Electronically signed by Destiny [facility] Conversion Cotton Factor Cerner at 07/05/2022 8:30 PM CDT documented in this encounter Plan of Treatment Upcoming Encounters Date Type Department Care Team (Late st Contact Info) Description 10/27/2024 10:00 AM EDT Appointment [facility] MRI 1 [place] [address] Adalberto Painting MD [address] [facility] [address] [place] [address] [phone] 10/29/2024 10:30 AM EDT Audio - Telemedicine [facility] [address] [place] [address] [address] [place] [address] Adalberto Pianting MD [address] [facility] [address] [place] [address] [phone] documented as of this encounter Visit Diagnoses Not on filedocumented in this encounter Care Teams Track Sweeper Relationship Specialty Start Date End Date Martinez Canseco MD [address] [place] [address] PCP - General Family Medicine 10/05/22 documented as of this encounter
--- OUTSIDE RECORDS SUMMARY | 2024-10-14 15:49 | XMS_ITS | Encounter Summary ---
Author Organization [employer] ([place], [place], [place], [place]) Address [address] [place] [address] Care Team Providers Care Poker Machine Attendant Name Role Phone Martinez Canseco MD Primary Care Provider [phone] Encounter Details Date Type Department Care Team (Late st Contact Info) Description 09/11/2018 Transcribed Document [facility] Family Medicine [address] [place] [address] ProviderIvan MD [address] [place] [address] Social History Tobacco Use Types [...] Conversion Note - Historical ProviderMD - 09/11/2018 11:03 AM CDT Attempt to Treat, PT Entered On: 09/11/2018 16:40 EDT Performed On: 09/11/2018 11:03 EDT by Peggy Montez Manual Lathe Operator Attempt to Treat Unable to Treat Due To : Patient on hold Inability to Treat Comment : nsg held pt due to needing to stay on Bipap and rest to bring O2 sats up, will try back as time permits Notification : Peggy Alvarez Manual Lathe Operator - 09/11/2018 16:39 EDT Electronically signed by Destiny [facility] Conversion Wood Heel Fitter Machine Cerner at 07/05/2022 8:43 PM CDT documented in this encounter Plan of Treatment Upcoming Encounters Date Type Department Care Team (Late st Contact Info) Description 10/27/2024 10:00 AM EDT Appointment [facility] MRI 1 [place] [address] [place] [address] [place] [address] [address] [place] [address] 10/29/2024 10:30 AM EDT Audio - Telemedicine [facility] [address] [place] [address] [address] [place] [address] [place] [address] [place] [address] [address] [place] [address] [phone] documented as of this encounter Visit Diagnoses Not on filedocumented in this encounter Care Teams Poker Machine Attendant Relationship Specialty Start Date End Date Martinez Canseco MD [address] [place] [address] PCP - General Family Medicine 10/05/22 documented as of this encounter
--- OUTSIDE RECORDS SUMMARY | 2024-10-14 15:49 | XMS_ITS | Encounter Summary ---
Author Organization [employer] ([place], [place], [place], [place]) Address [address] [place] [address] Care Team Providers Care Computer Customer Support Specialist Name Role Phone Martinez Canseco MD Primary Care Provider [phone] Encounter Details Date Type Department Care Team (Late st Contact Info) Description 09/04/2018 Transcribed Document [facility] Family Medicine [address] [place] [address] ProviderIvan MD [address] [place], [place] [id number] Social History Tobacco Use Types Packs/Day Years [...] Ivan ProviderMD - 09/04/2018 10:48 PM CDT Pain Assessment Entered On: 09/05/2018 19:56 EDT Performed On: 09/05/2018 8:54 EDT by DESIREE Figueroa RN Intervention Information: morphine Performed by DESIREE Figueroa RN on 09/05/2018 08:24:00 EDT morphine,2mg IV Push,Cordis,Pain (Severe 7-10) Pain Assessment Pain Assessment : Follow-up assessment Pain Scale Goal : 3 Pain Scale Used : 0-10 Scale Pain Improved by : Medication Pain Improved by Intervention : No DESIREE Figueroa RN - 09/05/2018 19:56 EDT Pain Scale Intensity : 3 DESIREE Figueroa RN - 09/05/2018 19:56 EDT Image 4 - Images currently included in the form version of this document have not been included in the text rendition version of the form. documented in this encounter Plan of Treatment Upcoming Encounters Date Type Department Care Team (Late st Contact Info) Description 10/27/2024 10:00 AM EDT Appointment [facility] 1 [place] [address] [place] [address] [place] [address] [address] [place] [address] 10/29/2024 10:30 AM EDT Audio - Telemedicine [facility] [address] [facility] [address] [place] [address] [place] [address] [place] [address] [address] [place], [place] [phone] documented as of this encounter Visit Diagnoses Not on filedocumented in this encounter Care Teams Computer Customer Support Specialist Relationship Specialty Start Date End Date Martinez Canseco MD [address] [place] [address] PCP - General Family Medicine 10/05/22 documented as of this encounter
--- OUTSIDE RECORDS SUMMARY | 2024-10-14 15:49 | XMS_ITS | Encounter Summary ---
Author Organization [employer] ([place], [place], [place], [place]) Address [address] [place] [address] Care Team Providers Care Electrical Timing Device Calibrator Name Role Phone Martinez Canseco MD Primary Care Provider [phone] Encounter Details Date Type Department Care Team (Late st Contact Info) Description 09/12/2018 Transcribed Document [facility] Family Medicine [address] [place] [address] ProviderIvan MD [address] [place], [place] [address] Social History Tobacco Use Types Packs/Day Years Used Date Smoking Tobacco: Never Assessed Sex and Gender Information Value Date Recorded Sex Assigned at Male 09/13/2021 8:33 PM CDT Legal Sex Male 8:33 PM CDT Gender Identity Male 09/13/2021 8:33 PM CDT Sexual Orientation Not on file documented as of this encounter Miscellaneous Notes * Cerner Conversion Note - Ivan ProviderMD - 09/12/2018 12:32 PM CDT Patient: IZABELLA PACHECO Age: 67 years Sex: Male : 1950 Associated Diagnoses: None Author: ANGELINE JAY, LIBRARIAN [employer]-CTS Admission Date: Discharge Date: Attending:Dr. Kyler Gaxiola, CT Surgery PCP:Dr. Martinez Canseco CARD:Dr. Peng Soto Consultants:Dr. Leeroy Garvey Brief History:Izabella Pacheco is a 67-year-old male with past medical [...] artery bypass grafting and mitral valve surgery. PROCEDURE: >> JESUSITA: Structurally normal mitral valve. Moderate-severe mitral regurgitation. The jet is centrally-located and centrally-directed. No masses or vegetations seen. >>1. Median sternotomy. 2. Mitral valve repair using a 30 mm [employer] CG annuloplasty band. 3. Coronary artery bypass graft x2 with left internal mammary artery anastomosed to left anterior descending with patch arterioplasty of this target, reverse saphenous vein graft anastomosed to the posterior descending artery on cardiopulmonary bypass. 4. Application of platelet rich and platelet poor platelet gel. 5. Endoscopic vein harvesting from the right lower extremity. 6. Intraoperative transesophageal echocardiography. Fiberoptic Broncoscopy DX(Present on admission): 1. Unstable angina. 2. Severe mitral regurgitation. 3. Severe two-vessel coronary artery disease. 4. 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 5. Systemic Hypertension. 6. Hyperlipidemia. 7. Ongoing Cigarette abuse with nicotine dependency \ withdrawal 8. History of colostomy and colostomy recent reversal. 9. Alcohol use, three beers per day. 10. Recent pneumonia. EF 40% per intraop JESUSITA POSTOP DX: Acute Hypoxemic respiratory failure due to Moderate COPD and Emphysema and Eleazar dense atelectasis RLL collapse with endobronchialmucous plugging New onset Acute A Fib Hypotension Subjective 09/03: JESUSITA this am, no SOB or chest pain 09/04: Mitral Valve Repair and CABGx2 09/05: POD#1 Intubated and sedated on Propofol and Precedex. He is very restless. He is responsive. 09/06: POD#2 Intubated and sedated on Propofol and Precedex. He is arousable and following commands. He is much more calm today. 08/08: POD # 4, Transfer to tele 09/09: POD # 5, nausea improved today, no SOB, sternal discomfort 09/10: POD # 6 nausea still present but better today, breathing about the same, son at bedside and requests rehab upon discharge 09/11: POD # 7 bronch this am - currently on bipap following bronch per Dr. Garvey, breathing improved following bronch 09/12: POD #8 Breathing much improved; concerned about A FIB Health Status Allergies: Allergic Reactions (Selected) No Known Allergies Current medications.Problem list. Objective VS/Measurements Vital Measurements 09/12/2018 11:15 EDT Oxygen Saturation 95 % Oxygen Therapy Mode High flow nasal cannula Oxygen Flow Rate 6 Liter/Min 09/12/2018 10:28 EDT Temperature, Fahrenheit 97.5 Deg F Heart Rate Monitored 109 bpm HI General: Alert and oriented. Respiratory: Lungs are clear to auscultation. Cardiovascular: Normal rate, Regular rhythm. Gastrointestinal: Soft, Non-tender, Non-distended. Chest\ RLE incision>> C D I Tolerates PO Voiding Last BM>> \\ Ambulates with assistance ( short distance) Results Review General results Today's results 09/12/2018 5:03 EDT Sodium Level 144 mmol/L Potassium Level 3.8 mmol/L Chloride Level 106 mmol/L Carbon Dioxide Level 36 mmol/L HI Anion Gap 6 LOW Glucose Level 107 mg/dL HI Blood Urea Nitrogen 32 mg/dL HI Creatinine Level 1.10 mg/dL eGFR >60 mL/min/1.73m2 eGFR NonAfrican >60 mL/min/1.73m2 Bun/Creatinine 29.1 HI Calcium Level 10.0 mg/dL WBC 10.6 K/uL HI RBC 3.23 Million/uL LOW Hgb 10.3 g/dL LOW Hct 31.8 % LOW MCV 98.5 fL HI MCH 31.9 pg MCHC 32.4 Gram/dL Platelet Count 355 K/uL Interpretation: Radiology Results (Last 48 hours) [id number] -- 09/02/2018 14:21 CTA Chest PE Protocol (09/10/2018 17:15) Result: CT ANGIOGRAM THORAXHISTORY: Hypoxia. Shortness of breath.TECHNIQUE: Thin section axial CT with IV contrast supplemented [id number] MIP images. FINDINGS: Pulmonary vessels enhance in a normal fashion withoutevidence of embolic disease. Thoracic aorta is normal in caliber withoutevidence of aneurysm or dissection.Severe emphysematous changes are present. Moderate bilateral lower lobeatelectasis is present. There is opacification of right lower lobesegmental and subsegmental bronchi which could be due to aspiration orsecretions. No discrete lung mass is seen. Small bilateral pleural effusions are noted. There is no significantpericardial effusion. No adenopathy or mass lesion is present. IMPRESSION: 1. No evidence of pulmonary embolism.2. Significant bilateral lower lobe atelectasis.3. Opacification right lower lobe bronchi which could be due toaspiration or mucoid impaction. Advanced emphysematous disease. This study was performed using dose reduction techniques to achieveradiation exposure as low as reasonably achievable (ALARA). CR Chest 1 Vw Portable (09/11/2018 06:20) Result: PORTABLE CHEST, ONE VIEW HISTORY: Pleural effusion.COMPARISON: One day earlier.FINDINGS: The lungs collins are unchanged. There is no pneumothorax. The cardiac silhouette is stable. Support tubes and lines are stable. IMPRESSION: No significant change. Images reviewed, interpreted, and dictated by Dr. Andrea Porter.Transcribed by Wai Vzaquez PA-C, R.T. (N), C N M T.I have personally viewed, interpreted and dictated the examination. Ihave read and agree with the above final transcribed report. CR Chest 1 Vw Portable (09/12/2018 06:18) Result: PORTABLE CHEST HISTORY: Pleural effusion.COMPARISON: PCXR from the previous day.FINDINGS: The heart is stable in size. The patient is status post mediansternotomy for valve replacement surgery. Bibasilar airspace diseaseand small pleural effusions are unchanged. There is no pneumothorax.Osseous structures are stable. IMPRESSION: Stable bibasilar airspace disease and small pleuraleffusions.Images reviewed, interpreted, and dictated by Dr. Tere Paz.Transcribed by Simon Gresham PA-C.I have personally viewed, interpreted and dictated the examination. Ihave read and agree with the above final transcribed report. Carotid U\S ( 6\17\19): BILATERAL: < 50% (non flow restricting) stenosis of the internal carotid artery. Normal antegrade vertebral flow. No evidence of subclavian steal. Impression and Plan VTE STATUS>>SCDS TOBACCO CESSATION DISCUSSED WITH PATIENT ON HOSPITAL COURSE Admission ( transfer from [facility] 09/03: Carotid duplex and PFTs JESUSITA - moderate to severe MR 09/04: MV repair and CABGx2 09/05: POD#1 Intubated Consult Pulm for vent management Lasix 60mg IV x 1 Wean gtts as tolerated 09/06: POD#2 Hopefully can wean and extubate today Continue to wean gtts as tolerated 09/08: POD # 4 Transfer to tele 09/09: POD #5 Nausea improving Hypotension - hold BB and lisinopril Cr worse today 1.2 (from0.9) - suspected hypoperfusion 09/10: POD # 6 Nausea better today, still decreased appetite Family would like discharge to rehab to [facility] in [facility] - precert initiated Cr improved today Small bilateral pleural effusions - requiring O2 4L continuous - Lasix 40 IV today 1L fluid restriction Still holding on BB, may consider starting low dose tomorrow Hold lisinopril as well for now 09/11: POD # 7 S/p bronch this am, aspiration thick secretions from RML, RLL, LLL bronchus Patient states breathing better post bronch, currently on bipap per pulmonary Check CXR in am Start low dose BB today Lasix 40 mg IV, K+ 20 meq today To rehab 24-48 hr : Telemetry>> sinus Pt had new episode of Acute Afib ( lasted approx. one hour, converted back to sinus at 7:53am) IV Amiodarone start as pt converted, SBP had been running in 90's after IV amiod. started, SBP in 80's Pt discussed with Dr. Urias>. start PO amiodarone then stop IV amiodarone On metoprolol 12.5 mg BID ( will continue if able to maintain SBP 90 or greater) O2 sat 95% on 6 liters ( improved, on 12 liters, early am) Pt has Rehab bed at [facility] ( [facility]), if pt remains in sinus and O2 needs are 4 liters or less,>> and SBP stable then will consider transfer tomorrow Pt seen and evaluated by Dr. Urias who agrees with above documented in this encounter Plan of Treatment Upcoming Encounters Date Type Department Care Team (Late st Contact Info) Description 10/27/2024 10:00 AM EDT Appointment [facility] MRI 1 [place] [address] [place] [address] [place] [address] [address] [place] [address] 10/29/2024 10:30 AM EDT Audio - Telemedicine [facility] [address] [place] [address] [address] Adalberto Painting MD [address] [place] [address] [address] [place] [address] [phone] documented as of this encounter Visit Diagnoses Not on filedocumented in this encounter Care Teams Electrical Timing Device Calibrator Relationship Specialty Start Date End Date Martinez Canseco MD [address] [place] [address] PCP - General Family Medicine 10/05/22 documented as of this encounter
--- OUTSIDE RECORDS SUMMARY | 2024-10-14 15:49 | XMS_ITS | Encounter Summary ---
Author Organization [employer] ([place], [place], [place], [place]) Address [address] [place] [address] Care Team Providers Care Creative Services Director Name Role Phone Martinez Canseco MD Primary Care Provider [phone] Encounter Details Date Type Department Care Team (Late st Contact Info) Description 09/11/2018 Transcribed Document [facility] Family Medicine [address] [place] [address] ProviderIvan MD [address] [place] [address] Social History Tobacco Use Types [...] Conversion Note - Ivan ProviderMD - 09/11/2018 8:29 AM CDT [facility] IntraOp Summary Primary Physician: ARLETTE DE JESUS MD Finalized Date/Time: 09/11/18 09:05:45 Pt. Name: AUGUSTO PACHECO/Sex: 1950 Male Med Rec #: [id number] Physician: ESVIN BUTTS MD-CAT Financial #: [id number] Pt. Type: I Room/Bed: [facility]/1 Admit/Disch: 09/02/18 14:21:00 - Institution: [facility] - Case Attendance Entry 1 Entry 2 Entry 3 Case Attendee ARLETTE DE JESUS MD RUBLE, AMY M., RN AARON VILLA MD Role Performed Surgeon/Proceduralist, Sales Development Associate, First Anesthesiologist of First Record Time In 09/11/18 08:15:00 09/11/18 08:15:00 09/11/18 08:15:00 Time Out 09/11/18 08:40:00 09/11/18 08:40:00 09/11/18 08:40:00 Procedure Bronchoscopy Flexible, Bronchoscopy Flexible, Bronchoscopy Flexible, Bronchial Washings Bronchial Washings Bronchial Washings Other Attendee Superficial Wound Closed By: Last Modified By: SUSHMA LOPEZ, SUSHMA HUBER, SUSHMA HUBER, EDUARDO 09/11/18 08:38:13 09/11/18 08:38:13 09/11/18 08:38:13 Entry 4 Entry 5 Entry 6 Case Attendee MANUEL MARIANO, ATTENDEE #1 Gregoria Hernadez Crna Role Performed Scrub, First Scrub, Second ZIPPER SETTER/Nurse Molder Machine Time In 09/11/18 08:15:00 09/11/18 08:15:00 09/11/18 08:15:00 Time Out 09/11/18 08:40:00 09/11/18 08:40:00 09/11/18 08:40:00 Procedure Bronchoscopy Flexible, Bronchoscopy Flexible, Bronchoscopy Flexible, Bronchial Washings Bronchial Washings Bronchial Washings Other Attendee [facility] Superficial Wound Closed By: Last Modified By: SUSHMA LOPEZ, SUSHMA HUBER, SUSHMA HUBER, EDUARDO 09/11/18 08:38:13 09/11/18 08:24:18 09/11/18 08:38:13 [facility] - Case Attendance Audit 09/11/18 08:38:13 General Repair Mechanic: SPENCEAM Modifier: SPENCEAM 1 <+> Time Out 1 <*> Procedure Bronchoscopy Flexible, Bronchial Washings 2 <+> Time Out 2 <*> Procedure Bronchoscopy Flexible, Bronchial Washings 3 <+> Time Out 3 <*> Procedure Bronchoscopy Flexible, Bronchial Washings 4 <+> Time Out 4 <*> Procedure Bronchoscopy Flexible, Bronchial Washings 5 <+> Time Out 5 <*> Procedure Bronchoscopy Flexible, Bronchial Washings 6 <+> Time Out 6 <*> Procedure Bronchoscopy Flexible, Bronchial Washings 09/11/18 08:36:13 General Repair Mechanic: SPENCEAM Modifier: SPENCEAM 6 <+> Case Attendee 6 <*> Procedure Bronchoscopy Flexible, Bronchial Washings 09/11/18 08:33:38 General Repair Mechanic: SPENCEAM Modifier: SPENCEAM 1 <*> Procedure Bronchoscopy Flexible 2 <*> Procedure Bronchoscopy Flexible 3 <*> Procedure Bronchoscopy Flexible 4 <*> Procedure Bronchoscopy Flexible 5 <*> Procedure Bronchoscopy Flexible 6 <*> Procedure Bronchoscopy Flexible 09/11/18 08:25:38 General Repair Mechanic: SPENCEAM Modifier: SPENCEAM 1 <*> Procedure Bronchoscopy Flexible 2 <+> Time In 2 <*> Procedure Bronchoscopy Flexible 3 <+> Time In 3 <*> Procedure Bronchoscopy Flexible 4 <+> Time In 4 <*> Procedure Bronchoscopy Flexible 5 <+> Time In 5 <*> Procedure Bronchoscopy Flexible 6 <+> Time In 6 <*> Procedure Bronchoscopy Flexible 09/11/18 08:24:18 General Repair Mechanic: SPENCEAM Modifier: SPENCEAM 1 <+> Time In 1 <*> Procedure Bronchoscopy Flexible <+> 2 Case Attendee <+> 2 Role Performed <+> 2 Procedure <+> 3 Case Attendee <+> 3 Role Performed <+> 3 Procedure <+> 4 Case Attendee <+> 4 Role Performed <+> 4 Procedure <+> 5 Case Attendee <+> 5 Role Performed <+> 5 Procedure <+> 5 Other Attendee <+> 6 Role Performed <+> 6 Procedure [facility] - Case times Entry 1 Patient In Room Time 09/11/18 08:15:00 Out Room Time 09/11/18 08:44:00 Anesthesia Start Time 09/11/18 08:15:00 Stop Time 09/11/18 08:44:00 Surgery / Procedure Times Start Time 09/11/18 08:29:00 Stop Time 09/11/18 08:35:00 Last Modified By: SUSHMA LOPEZ RN 09/11/18 08:35:29 [facility] - Case times Audit 09/11/18 09:05:42 General Repair Mechanic: SPENCEAM Modifier: SPENCEAM 1 <*> Out Room Time 09/11/18 08:40:00 1 <*> Stop Time 09/11/18 08:40:00 09/11/18 08:36:42 General Repair Mechanic: SPENCEAM Modifier: SPENCEAM <+> 1 Out Room Time <+> 1 Stop Time 09/11/18 08:35:29 General Repair Mechanic: SPENCEAM Modifier: SPENCEAM <+> 1 Start Time <+> 1 Stop Time [facility] - Cultures and Spec Summary Entry 1 Cultrures and Specimens Specimen Ordered: Yes Specimens Types Culture(s), Pathology Specimen(s) Labeled Lab, Pathology and Sent to Last Modified By: SUSHMA LOPEZ RN 09/11/18 08:33:48 [facility] - Delays Entry 1 Delay Reason Ancillary department delay Duration 15 Minute(s) Comment transported to Endoscopy Last Modified By: SUSHMA LOPEZ RN 09/11/18 08:33:17 [facility] - Departure from OR Entry 1 Integumentary Assessment Integumentary WDL Assessment WDL Transfer/Handoff Transfer to PACU Phase I Handoff Reported to SUSHMA LOPEZ, RN Post-op Transport Stretcher/Gurney Via Patient Transport SUSHMA LOPEZ, RN Accompanied by Last Modified By: SUSHMA LOPEZ RN 09/11/18 08:24:25 [facility] - Endoscopy Details Entry 1 Abdomen Procedure Soft, Non-distended, Assessment Non-Tender Procedure Abdomen 09/11/18 08:24:00 Assessment D/T Radio Frequency Ablation Last Modified By: SUSHMA LOPEZ RN 09/11/18 08:24:29 [facility] - Fire Risk Assessment Entry 1 Fire Info Surgical Site or 1- Yes Incision Above the Xyphoid Open O2 Source 1- Yes (Mask or Cannula) Available Ignition 1- Yes (ESU, Laser, Light Source) Fire Risk 3 Assessment Score Fire Score Fire Risk Yes Assessment Complete Fire Risk SUSHMA LOPEZ, insurance instructor Verified By Fire Risk 09/11/18 08:24:00 Assessment Verified Date/Time Fire Risk High Risk Protocol Yes Implemented Standard Fire Yes Safety Precautions Followed Last Modified By: SUSHMA LOPEZ RN 09/11/18 08:24:32 [facility] - General Case Hospice Rn 1 Case Information OR Endo 04 [facility] Case Level 1 Room Verified Yes Wound Class II - Clean-Contaminated Specialty SN Pulmonology Anesthesia Type General ASA Class 4 Diagnosis Preop Diagnosis right lung collapse Postop Same As Preop Yes Postop Diagnosis right lung collapse Last Modified By: SUSHMA LOPEZ RN 09/11/18 08:25:02 [facility] - Intraoperative Assessment Entry 1 Valid History / Yes Physical in Chart Preoperative Yes Checklist Reviewed/Evaluated Patient is Latex No Sensitive Level of WDL Consciousness (WDL = Alert, Oriented to Person, Place, and Time) Present Upon ECG monitored Arrival to OR Last Modified By: SUSHMA LOPZE RN 09/11/18 08:25:06 [facility] - Intraoperative Equipment Entry 1 Equipment Intraop Monitoring Electrocardiogram Three lead placement (ECG) Electrode Placement Blood Pressure Arm, left upper Location Pulse Oximeter Hand, right Probe Site Antiembolic Devices Scopes Flexible Endoscopes Bronchoscope Used Scope Serial B8 Number/Identificatio n Number Photo/Video Documentation Photo Yes Video No Last Modified By: SUSHMA LOPEZ RN 09/11/18 08:25:19 [facility] - Patient Positioning Entry 1 Procedure Bronchoscopy Flexible, Bronchial Washings Body Position Supine Left Arm Position Resting at side Right Arm Position Resting at side Left Leg Position Uncrossed, parallel Right Leg Position Uncrossed, parallel Feet Uncrossed Yes Pressure Points Yes Checked Positioned By SUSHMA LOPEZ RN Position Verified Positioning Yes Verified by Surgeon Last Modified By: SUSHMA LOPEZ RN 09/11/18 08:25:28 [facility] - Patient Positioning Audit 09/11/18 08:33:39 General Repair Mechanic: SPENCEAM Modifier: SPENCEAM 1 <*> Procedure Bronchoscopy Flexible [facility] - Sign In Entry 1 Patient, Site, Yes Procedure Identified Surgical Consent Yes Confirmed Surgical Site N/A Marked by person performing procedure Airway Hypothermia Risk No Warming Measures No Taken Last Modified By: SUSHMA LOPEZ RN 09/11/18 08:25:36 [facility] - Sign Out Entry 1 RN Confirmation Surgical Yes Procedure(s) Identified Instrument, Sponge N/A and Sharps Counts Correct/Documented Equipment Problems N/A Documented Specimen Labeled Yes Correctly Urinary Catheter N/A Documented in IView Safety Checklist Yes Elements Complete? RN Sign Out SUSHMA LOPEZ RN Signature RN Sign Out 09/11/18 08:40:00 Signature Date/Time Plan of Care Outcome - [...] of Care Outcome - Counts OUTCOME STATEMENT: N/A Absence of signs and symptoms of injury related to extraneous objects Last Modified By: SUSHMA LOPEZ RN 09/11/18 08:36:52 [facility] - Surgical Procedures Entry 1 Entry 2 Procedure Bronchoscopy Flexible Bronchial Washings Modifiers Additional Procedure Description Primary Procedure Yes No Primary Surgeon ARLETTE DE JESUS MD KSEIBI, SAMER A, MD Start 09/11/18 08:29:00 09/11/18 08:29:00 Stop 09/11/18 08:35:00 09/11/18 08:35:00 Physician States Cecum Reached Anesthesia Type General General Specialty SN Pulmonology SN Pulmonology Wound Class II - Clean-Contaminated II - Clean-Contaminated Last Modified By: SUSHMA LOPEZ RN RUBLE, AMY M., RN 09/11/18 08:25:29 09/11/18 08:33:35 [facility] - Surgical Procedures Audit 09/11/18 08:36:57 General Repair Mechanic: SPENCEAM Modifier: SPENCEAM <+> 1 Start <+> 1 Stop <+> 2 Start <+> 2 Stop 09/11/18 08:33:35 General Repair Mechanic: SPENCEAM Modifier: SPENCEAM <+> 2 Procedure <+> 2 Primary Procedure <+> 2 Primary Surgeon <+> 2 Specialty <+> 2 Wound Class <+> 2 Anesthesia Type 09/11/18 08:26:29 General Repair Mechanic: SPENCEAM Modifier: SPENCEAM 1 <*> Procedure Bronchoscopy Flexible 09/11/18 08:25:51 General Repair Mechanic: SPENCEAM Modifier: SPENCEAM 1 <*> Procedure Bronchoscopy Flexible 1 <+> Specialty 1 <*> Anesthesia Type MAC [facility] - Time Out Entry 1 Procedure to be Bronchoscopy Flexible, Performed Bronchial Washings Time Out Time Out Pause Time 09/11/18 08:25:00 All activity Yes suspended (unless life threatening emergency) Team Verbally Correct patient Confirms Information identity, Correct side and site are marked, Consent form is present and accurate, Agreement on the procedure to be done, Correct patient position, Relevant images/results properly labeled/appropriately displayed Antibiotic N/A Prophylaxis Administered Or In Progress Within the Last 60 Minutes Beta Kristofer N/A Administered Venous N/A Thromboembolism Prophylaxis Required Anticipated Critical Events Surgeon None expected Last Modified By: SUSHMA LOPEZ RN 09/11/18 08:33:39 [facility] - Time Out Audit 09/11/18 08:33:39 General Repair Mechanic: SPENCEAM Modifier: SPENCEAM 1 <*> Procedure to be Performed Bronchoscopy Flexible Case Comments <None> Finalized By: SUSHMA LOPEZ RN Document Signatures Signed By: SUSHMA LOPEZ RN 09/11/18 09:05 Electronically signed by Destiny [facility] Conversion Field Crop Harvest Contractor Cerner at 07/05/2022 8:46 PM CDT documented in this encounter Plan of Treatment Upcoming Encounters Date Type Department Care Team (Late st Contact Info) Description 10/27/2024 10:[address] [facility] [address] [place] [address] Adalberto Painting MD [address] [place] [address] [place] [address] 10/29/2024 10:30 AM EDT Audio - Telemedicine [facility] [address] [place] [address] [place] [phone] Adalberto Painting MD [address] [place] [address] [address] [place] [id number] documented as of this encounter Visit Diagnoses Not on filedocumented in this encounter Care Teams Creative Services Director Relationship Specialty Start Date End Date Martinez Canseco MD [address] [place] [address] PCP - General Family Medicine 10/05/22 documented as of this encounter
--- OUTSIDE RECORDS SUMMARY | 2024-10-14 15:50 | XMS_ITS | Encounter Summary ---
Author Organization [employer] ([place], [place], [place], [place]) Address [address] [place] [address] Care Team Providers Care Machine Records Units Supervisor Name Role Phone Martinez Canseco MD Primary Care Provider [phone] Encounter Details Date Type Department Care Team (Late st Contact Info) Description 09/10/2018 Transcribed Document [facility] Family Medicine [address] [place] [address] ProviderIvan MD [address] [place], [place] [id number] Social History Tobacco Use Types Packs/Day Years Used Date Smoking Tobacco: Never Assessed Sex and Gender Information Value Date Recorded Sex Assigned at Male 09/13/2021 8:33 PM CDT Legal Sex Male 8:33 PM CDT Gender Identity Male 09/13/2021 8:33 PM CDT Sexual Orientation Not on file documented as of this encounter Miscellaneous Notes * Cerner Conversion Note - Ivan Nino MD - 09/10/2018 10:11 AM CDT Final Discharge Planning Entered On: 09/10/2018 10:13 EDT Performed On: 09/10/2018 10:11 EDT by MAGDALENO LOYA RN-Load Manager Final Discharge Planning Discharge Arrangements : Patient Post-Acute Information Patient Name: AUGUSTO PACHECO Gender: Male : [birth year] Age: 67 Years [place] Referral(s): Service: Organization: Business Address: Phone Number: [facility] [address], [place], [address] Important Medicare Message Reviewed With : Patient Important Medicare Message Reviewed D/T : 09/10/2018 10:00 EDT Transportation Needs : Family/Friend Discharge Transportation Arrangement Cmt : Dago will transpt to facility Patient/Family Notified of Plan : Yes Patient/Family Notified : Daryl Loza. Discharge To Care Management : SNF with Medicare Certification-03, IRF -Inpatient Rehabilitation Facility-62 MAGDALENO LOYA RN-Load Manager - 09/10/2018 10:11 EDT Final Narrative Note Final Narrative Note : CM Spoke w/Zahra @ [facility] re: D/C and Diet needs - pt is on Cardiac Diet and Nutritional note was fax'd to her. CM met w/fam @ [facility]. pt is agreeable w/D/C to [facility] and signed IM and choice form - placed on chart. - poss D/C 09/11, Dago will transpt. MAGDALENO LOYA RN-Load Manager - 09/10/2018 10:11 EDT Electronically signed by Destiny [facility] Conversion Skin Care Technician Cerner at 07/05/2022 8:47 PM CDT documented in this encounter Plan of Treatment Upcoming Encounters Date Type Department Care Team (Late st Contact Info) Description 10/27/2024 10:00 AM EDT Appointment [facility] 1 [place] [address] Adalberto Painting MD [address] [place] [address] [address] 10/29/2024 10:30 AM EDT Audio - Telemedicine [facility] [address] [facility] [address] [place] [address] [place] [address] [place] [address] [address] [place] [address] documented as of this encounter Visit Diagnoses Not on filedocumented in this encounter Care Teams Machine Records Units Supervisor Relationship Specialty Start Date End Date Martinez Canseco MD [address] [place] [address] PCP - General Family Medicine 10/05/22 documented as of this encounter
--- OUTSIDE RECORDS SUMMARY | 2024-10-14 15:50 | XMS_ITS | Encounter Summary ---
Author Organization [employer] ([place], [place], [place], [place]) Address [address] [place] [address] Care Team Providers Care Police Lieutenant Patrol Name Role Phone Martinez Canseco MD Primary Care Provider [phone] Encounter Details Date Type Department Care Team (Late st Contact Info) Description 09/09/[address] [facility] Family Medicine [address] [place] [address] ProviderIvan MD [address] [place] [address] Social History Tobacco Use Types Packs/Day Years Used Date Smoking Tobacco: Never Assessed Sex and Gender Information Value Date Recorded Sex Assigned at Male 09/13/2021 8:33 PM CDT Legal Sex Male 8:33 PM CDT Gender Identity Male 09/13/2021 8:33 PM CDT Sexual Orientation Not on file documented as of this encounter Miscellaneous Notes * Cerner Conversion Note - Ivan ProviderMD - 09/09/2018 3:00 AM CDT Nutrition Assessment Entered On: 09/09/2018 12:18 EDT Performed On: 09/09/2018 12:18 EDT by MAGDI ZUNIGA RD, LD Nutrition Assessment Nutrition Assessment Reason : Follow Up MAGDI ZUNIGA RD, LD - 09/09/2018 12:18 EDT Current Nutrition Regimen Comment : MAGDI ZUNIGA RD, LD - 09/09/2018 15:57 EDT Nutrition Recommendations Dietitian Recommendations : 09/09: Follow up with pt, on Cardiac diet, has been eating well but then got sick yesterday so is going slower with meals today. Would like to try a vanilla Ensure. Provided heart healthy diet education, no specific nutrition dx, RD will rescreen in 7-[address], LD - 09/09/2018 15:57 EDT Education Topics, Nutrition Nutrition Education Grid Heart Healthy Diet : Verbalizes understanding MAGDI ZUNIGA RD, LD - 09/09/2018 15:57 EDT documented in this encounter Plan of Treatment Upcoming Encounters Date Type Department Care Team (Late st Contact Info) Description 10/27/2024 10:[address] [facility] [address] [place] [address] Adalberto Painting MD [address] [place] [address] [id number] 10/29/2024 10:30 AM EDT Audio - Telemedicine [facility] [address] [place] [address] [place] [phone] Adalberto Painting MD [address] [place] [address] [address] [place] [address] documented as of this encounter Visit Diagnoses Not on filedocumented in this encounter Care Teams Police Lieutenant Patrol Relationship Specialty Start Date End Date Martinez Canseco MD [address] [place] [address] PCP - General Family Medicine 10/05/22 documented as of this encounter
--- OUTSIDE RECORDS SUMMARY | 2024-10-14 15:50 | XMS_ITS | Encounter Summary ---
Author Organization [employer] ([place], [place], [place], [place]) Address [address] [facility] [address] Care Team Providers Care Order Selector Name Role Phone Martinez Canseco MD Primary Care Provider [phone] Encounter Details Date Type Department Care Team (Late st Contact Info) Description 09/10/2018 Transcribed Document [facility] Pulm & Critical Care Medicine [address] [place] [address] [address] [place] [address] [place] [address] [address] [place] [address] Social History Tobacco Use Types Packs/Day Years Used Date Smoking Tobacco: Never Assessed Sex and Gender Information Value Date Recorded Sex Assigned at Male 09/13/2021 8:33 PM CDT Legal Sex Male 8:33 PM CDT Gender Identity Male 09/13/2021 8:33 PM CDT Sexual Orientation Not on file documented as of this encounter Miscellaneous Notes * Cerner Conversion Note - Leeroy Blankenship MD - 09/10/2018 4:08 PM EDT Patient: AUGUSTO PACHECO Age: 67 years Sex: Male : 1950 Associated Diagnoses: None Author: LEEROY BLANKENSHIP MD Basic Information HPI: Thisis a 67 year old male [...] to have MVCAD. He was transferred to [facility] for CTS evaluation. On 09/04, he underwent [...] 2-3 beers per day Family History CAD POD 2 Vent Day 2 ICU Day 2 09/06: Patient resting in bed on vent, sedated with pecedex, following commands, and comfortable, RASS 0. Hemodynamially stable and febrile. He remained on the vent overight following CABG. This morning he is awake and alert following commands. CT in place. Hgb stable at 10.0. I/O balance +1473. S/P lasix 60 IV x 1 yesterday. Cr stable at 0.80. In AC mode currently and being placed on a trial. temp 99.3 and pt recieved a 40 mg of lasix , CXR is better on rt apical infiltrate 09/07: Patient extubated yesterday. Now on 4L NC. No pressors required today. Chest tubes in place. Hgb 8.9 down from 10.0. I/O balance +984 stable Cr. No complaints. Not getting much sleep in ICU. 09/10 reconsulted today secondary to increased o2 requirements Review of Systems Constitutional: No fever. Eye: Negative. Ear/Nose/Mouth/Throat: Negative. Respiratory: Shortness of breath, no home o2, No cough, No wheezing. Cardiovascular: No chest pain. Gastrointestinal: slight upper quad distention, No abdominal pain. Genitourinary: Negative. Musculoskeletal: No back pain. Integumentary: Negative. Neurologic: Alert and oriented X4. Psychiatric: Negative. Health Status Allergies: Allergic Reactions (Selected) No Known Allergies, Allergies (1) Active Reaction No Known Allergies None Documented Current medications: (Selected) Inpatient Medications Ordered ALPRAZolam: 0.25 mg, Oral, TID, PRN: Anxiety Colace: 100 mg, Oral, BID Dextrose 50% injection: 12.5 Gram, IntraVENous, Q15Min, PRN: Other (See Comment) Dextrose 50% injection: 25 Gram, IntraVENous, Q15Min, PRN: Other (See Comment) DuoNeb 0.5 mg-2.5 mg/3 mL inhalation solution: 3 mL, Nebulized Inhalation, RT_Q4H, PRN: Shortness of Breath DuoNeb 0.5 mg-2.5 mg/3 mL inhalation solution: 3 mL, Nebulized Inhalation, RT_Q6H Lasix: 20 mg, IV Push, 1-Time, PRN: Other (See Comment) Lipitor: 20 mg, Oral, At Bedtime Milk of Magnesia 8% oral suspension: 30 mL, Oral, Daily, PRN: Constipation Mucinex: 600 mg, Oral, BID Nitrostat: 0.4 mg, SubLINgual, Q5Min, PRN: Pain Normal Saline Flush: 10 mL, IV Push, Q12H Normal Saline Flush: 10 mL, IV Push, See Comment, PRN: IV Use Percocet 5/325 oral tablet: 2 Tab, Oral, Q4H, PRN: Pain (Moderate 4-6) Protonix: 40 mg, Oral, Daily Pulmicort Respules: 0.5 mg, Nebulized Inhalation, RT_BID Reglan: 10 mg, IV Push, Q6H, PRN: Nausea/Vomiting Reglan: 10 mg, Oral, Q6H, PRN: Nausea/Vomiting Senokot: 17.2 mg, Oral, At Bedtime Tylenol: 650 mg, Oral, Q4H, PRN: Pain (Mild 1-3) Tylenol: 650 mg, Oral, Q4H, PRN: Temperature Zofran: 4 mg, IV Push, Q4H, PRN: Nausea albumin human 5% intravenous solution: 12.5 Gram, 250 mL, IntraVENous, Daily, PRN: Other (See Comment) aspirin: 81 mg, Oral, Daily glucagon: 1 mg, IntraMuscular, Q15Min, PRN: Other (See Comment) glucose 4 g oral tablet, chewable: 16 Gram, 4 Tab, Chew, Q15Min, PRN: Other (See Comment) glucose 40% oral gel: 15 Gram, Oral, Q15Min, PRN: Other (See Comment) morphine: 2 mg, IV Push, Q30Min, PRN: Pain (Severe 7-10) oxyCODONE: 5 mg, Oral, Q6H, PRN: Pain (Moderate 4-6) potassium chloride 10 mEq/50 mL intravenous solution: 10 mEq, 50 mL, 50 mL/Hr, IV Piggyback, Q1H, PRN: Other (See Comment) sodium bicarbonate: 100 mEq, IV Push, 1-Time, PRN: Other (See Comment) Documented Medications Documented Lasix 20 mg oral [...] 25 mg, Oral, Daily, 0 Refill(s), Medications (31) Active Scheduled: (9) #NaCl 0.9% *FLUSH* inj 10 mL 10 mL, IV Push, Q12H albuterol-ipratropium inh 3 mL 3 mL, Nebulized Inhalation, RT_Q6H aspirin EC 81 mg tab 81 mg 1 Tab, Oral, Daily atorvastatin 20 mg tab 20 mg 1 Tab, Oral, At Bedtime budesonide 0.5 mg/2 mL inh susp 0.5 mg 2 mL, Nebulized Inhalation, RT_BID docusate sodium 100 mg cap 100 mg 1 Cap, Oral, BID guaiFENesin 600 mg ER tab 600 mg 1 Tab, Oral, BID pantoprazole EC 40 mg tab 40 mg 1 Tab, Oral, Daily senna 8.6 mg tab 17.2 mg 2 Tab, Oral, At Bedtime Continuous: (0) PRN: (22) #NaCl 0.9% *FLUSH* inj 10 mL 10 [...] 2 mg 1 mL, IV Push, Q30Min nitroglycerin 0.4 mg tab # 25 btl [...] At risk for sleep apnea / IMO 73249509 / Confirmed Cardiomegaly / SNOMED CT 32159614 / Confirmed 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 CAD (coronary artery disease) / SNOMED CT 80068682 / Confirmed Pulmonary fibrosis / SNOMED CT 75399076 / Confirmed History of colostomy reversal / SNOMED CT 918182974 / Confirmed History of broken nose / SNOMED CT 5670937915 / Confirmed H/O right heart catheterization / SNOMED CT 1114324469 / Confirmed H/O hernia repair / SNOMED CT 8024822301 / Confirmed History of tonsillectomy / SNOMED CT 7076652557 / Confirmed COPD, moderate / SNOMED CT 417952905 / Confirmed Pneumonia / SNOMED CT 302984264 / Confirmed Smoker / SNOMED CT 573724251 / Confirmed, Active Problems (13) At risk for sleep apnea CAD (coronary artery disease) Cardiomegaly COPD, moderate H/O hernia repair H/O right heart catheterization History of broken nose History of colostomy reversal History of tonsillectomy Pneumonia Pulmonary fibrosis Smoker Steroid-dependent COPD Physical Examination VS/Measurements Vitals Signs (last 24 hrs) Last Charted Minimum Maximum Temp 97.8 (CAYETANO 25 14:12) 97.8 (CAYETANO 25 14:12) 98 (CAYETANO 24 22:40) Mon HR 115 (CAYETANO 25 14:12) 99 (CAYETANO 24 23:17) 115 (CAYETANO 25 14:12) Resp Rate 18 (CAYETANO 25 14:12) 16 (CAYETANO 25 06:00) 20 (CAYETANO 24 20:17) SBP 97 (CAYETANO 25 14:12) 97 (CAYETANO 25 14:12) 127 (CAYETANO 24 20:17) DBP L 59 (CAYETANO 25 14:12) L 59 (CAYETANO 25 14:12) 80 (CAYETANO 24 20:17) MAP 70 (CAYETANO 25 14:12) 70 (CAYETANO 25 14:12) 94 (CAYETANO 24 20:17) SpO2 L 92 (CAYETANO 25 14:12) L 86 (CAYETANO 25 11:14) 97 (CAYETANO 25 12:56) Intake & Output Totals Last 24 Hours (7a-7a) Intake (4 Events) Medications (24 mL) Output (0 Events) No output events found in the last 24 hours. Input Total: 24 mL Output Total: 0 mL Balance: 24 mL General: No acute distress. Eye: Normal conjunctiva. HENT: Normocephalic, Oral mucosa is moist. Neck: No lymphadenopathy. Respiratory: dec bilateral base, no significant wheeze or rhonchi. Cardiovascular: Normal rate, No edema. Gastrointestinal: Soft, Non-tender, Normal bowel sounds, distended upper quad bilateral. Integumentary: Warm, Dry, scattered ecchymosis. Neurologic: Alert, Oriented, No focal deficits. Psychiatric: Cooperative, Appropriate mood & affect. Review / Management Results review: Labs (Last four charted values) WBC 8.6 (CAYETANO 25) 9.1 (CAYETANO 24) H 12.8 (CAYETANO 23) H 10.5 (CAYETANO 22) HB L 10.0 (CAYETANO 25) L 10.8 (CAYETANO 24) L 10.1 (CAYETANO 23) L 8.9 (CAYETANO 22) HCT L 30.1 (CAYETANO 25) L 32.7 (CAYETANO 24) L 30.0 (CAYETANO 23) L 26.8 (CAYETANO 22) Plt 282 (CAYETANO 25) 282 (CAYETANO 24) 184 (CAYETANO 23) L 123 (CAYETANO 22) Na 145 (CAYETANO 25) 142 (CAYETANO 24) 141 (CAYETANO 23) 140 (CAYETANO 22) K 3.8 (CAYETANO 25) 3.7 (CAYETANO 24) 3.7 (CAYETANO 23) 4.2 (CAYETANO 22) Cl 106 (CAYETANO 25) 106 (CAYETANO 24) 103 (CAYETANO 23) 107 (CAYETANO 22) CO2 H 35 (CAYETANO 25) 31 (CAYETANO 24) 31 (CAYETANO 23) 29 (CAYETANO 22) BUN H 43 (CAYETANO 25) H 34 (CAYETANO 24) H 29 (CAYETANO 23) 19 (CAYETANO 22) Cr 1.10 (CAYETANO 25) 1.20 (CAYETANO 24) 0.90 (CAYETANO 23) 0.80 (CAYETANO 22) Glu R H 109 (CAYETANO 25) H 140 (CAYETANO 24) H 124 (CAYETANO 23) H 134 (CAYETANO 22) Ca 9.9 (CAYETANO 25) H 10.2 (CAYETANO 24) 10.0 (CAYETANO 23) 9.3 (CAYETANO 22) PT 10.5 (CAYETANO 21) 10.7 (CAYETANO 18) 10.7 (CAYETANO 17) INR 1.0 (CAYETANO 21) 1.0 (CAYETANO 18) 1.0 (CAYETANO 17) PTT 27.8 (CAYETANO 18) 27.5 (CAYETANO 17) AST 32 (CAYETANO 21) 17 (CAYETANO 19) 19 (CAYETANO 18) 17 (CAYETANO 17) ALT 18 (CAYETANO 21) 23 (CAYETANO 19) 25 (CAYETANO 18) 25 (CAYETANO 17) ALK P 44 (CAYETANO 21) 71 (CAYETANO 19) 80 (CAYETANO 18) 74 (CAYETANO 17) T Bili 0.4 (SEP 06) 1.0 (SEP 04) 0.4 (SEP 03) 0.6 (SEP 02) PTN L 5.8 (SEP 06) 6.6 (SEP 04) 6.7 (SEP 03) 6.5 (SEP 02) ALB L 3.1 (SEP 06) L 3.3 (SEP 04) L 3.3 (SEP 03) 3.5 (SEP 02) . Blood Gases (Current Encounter/Past 24 Hours) pH Art 7.54 HI 09/10/2018 15:52 pCO2 Art 41.8 09/10/2018 15:49 pO2 Art 54.6 CRIT 09/10/2018 15:52 HCO3 Art 35.4 HI 09/10/2018 15:52 BE Art 11.7 PR 09/10/2018 15:52 sO2 Art 89.7 LOW 09/10/2018 15:52 tHb Art 10.4 LOW 09/10/2018 15:52 FHHb 10.1 NA 09/10/2018 15:49 ctO2 12.8 NA 09/10/2018 15:49 Delivery Device Type Art HFNC 09/10/2018 15:49 Temperature, F Art 98.6 09/10/2018 15:49 Art Blood Gas (ABG) Site Left Radial 09/10/2018 15:49 Acceptable Ronnell's Test Art Acceptable NA 09/10/2018 15:49 Ventilator Mode Art N/A NA 09/10/2018 15:49 Oxygen Flow Rate Art 8.0 09/10/2018 15:49 ABG Num of Draw Attempts 1 09/10/2018 15:49 SEP 10 03:31 145 106 H 43 / H 109 3.8 H 35 1.10 \ SEP 10 03:31 \ L 10.0 / 8.6 282 / L 30.1 \ Radiology Results (Last 48 hours) [id number] -- 09/02/2018 14:21 CR Chest 1 Vw Portable (09/10/2018 06:20) Result: PORTABLE CHEST 09/10/2018 4:00 AM HISTORY: Pleural effusion.COMPARISON: September 08, 2018.FINDINGS: The patient is status post sternotomy for CABG. The heart isnormal in size. The mediastinum is unremarkable. There are small pleuraleffusions. There is mild atelectasis. There is emphysematous change.There is no pneumothorax. The osseous structures are unremarkable. IMPRESSION: Small pleural effusions with mild atelectasis.Images reviewed, interpreted, and dictated by Dr. Andrea Porter.Transcribed by Wai Vazquez PA-C, Imelda (N), Polo Trevizo T.I have personally viewed, interpreted and dictated the examination. Ihave read and agree with the above final transcribed report. CTA Chest PE Protocol (09/10/2018 17:15) Result: CT ANGIOGRAM THORAXHISTORY: Hypoxia. Shortness of breath.TECHNIQUE: Thin section axial CT with IV contrast supplemented [id number] MIP images. FINDINGS: Pulmonary vessels enhance in [...] exposure as low as reasonably achievable (ALARA). DATE OF STUDY: 09/02/2018 Race: . Height: [...] vascular disease. Impression and Plan 1. Acute Hypoxemic Respiratory Failure due to a. base line moderate copd and emphysema and decreased diffusion capicity b:bilateral dense atelectasis c. RLL collpase and endobronchial mucous plugging noted d. bilateral effusion ; small left > rt 2. Cardiac: CAD CABG x 2 with mitral valve repair ICM EF 40% 3. ID -Leukocytosis--Probable Acute Phase Reactant improved 4. Prophylaxis Plan Pulm and CCM Attending Note: I performed personally History evaluation, Review of systems, Physical examniation and reviewed Labs as well as Radiology data and Medications, I discussed with allied staff patient???s condition and discussed findings, I formulated diagnoses/impression and plan and I updated note . I also discussed my impression and plan for the day with patient???s nurse and I discussed with patient Patient requires a high complexity of decision making for assessment. Overall my opinion and recommendations are: Titrate o2. Sat > 92% obtain ABG- given hypoxia proceeded to CTA PE protocol and duplex LE: see above need FOB therapeutic in am npo aftermidnight nebs Q 6 H and pulmicort encourage pulmonary toilet and activity- discussed with pt may start mucomyst nebs q 6 x 2 days can use NIPPV HS discussed with RN, RT and pt CXR in AM post diuretic today, 1100 or so out today thus far reported Pepcid/Start DVT prophylaxis when ok with CTS rossy blankenship level 3 documented in this encounter Plan of Treatment Upcoming Encounters Date Type Department Care Team (Late st Contact Info) Description 10/27/2024 10:00 AM EDT Appointment [facility] MRI [address] [place] [address] [place] [address] [place] [address] [address] [place] [address] 10/29/2024 10:30 AM EDT Audio - Telemedicine [facility] [address] [place] [address] [address] [place] [address] Adalberto Painting MD [address] [facility] [address] [address] documented as of this encounter Visit Diagnoses Not on filedocumented in this encounter Care Teams Order Selector Relationship Specialty Start Date End Date Martinez Canseco MD [address] [place] [address] PCP - General Family Medicine 10/05/22 documented as of this encounter
--- OUTSIDE RECORDS SUMMARY | 2024-10-14 15:50 | XMS_ITS | Encounter Summary ---
Author Organization [employer] ([place], [place], [place], [place]) Address [address] [place] [address] Care Team Providers Care Legal Instructor Name Role Phone Martinez Canseco MD Primary Care Provider [phone] Encounter Details Date Type Department Care Team (Late st Contact Info) Description 09/10/2018 Transcribed Document [facility] Family Medicine [address] [place] [address] ProviderIvan MD [address] [place], [place] [address] Social History Tobacco Use Types Packs/Day Years Used Date Smoking Tobacco: Never Assessed Sex and Gender Information Value Date Recorded Sex Assigned at Male 09/13/2021 8:33 PM CDT Legal Sex Male 8:33 PM CDT Gender Identity Male 09/13/2021 8:33 PM CDT Sexual Orientation Not on file documented as of this encounter Miscellaneous Notes * Cerner Conversion Note - Ivan Nino MD - 09/10/2018 10:08 AM CDT On Going Discharge Planning Entered On: 09/10/2018 10:11 EDT Performed On: 09/10/2018 10:08 EDT by MAGDALENO LOYA RN-Reverse EngineerPoultry Trimmer Progress Note Discharge Arrangements : Patient Post-Acute Information Patient Name: AUGUSTO PACHECO Gender: Male : [birth year] Age: 67 Years [place] Referral(s): Service: Organization: Business Address: Phone Number: Acute Rehab [facility] [address], [place], [address] Discharge Options Discussed with Patient : DME, Home Health, Short term rehabilitation Barriers to Discharge Identified : Clinical Condition of Patient Designation of Choice Signed : Yes Patient Offered Choice/Affiliations Explained : Yes Does the Patient have a Floor to SNF Benefit? : Yes Discharge Plan Comment : D/C to [facility]/Rehab 09/11 Bro will transpt MAGDALENO LOYA, RN-Reverse Engineer - 09/10/2018 10:08 EDT Narrative Progress Note Narrative Progress Note : CM Spoke w/Zahra @ [facility] re: D/C and Diet needs - pt is on Cardiac Diet and Nutritional note was fax'd to her. CM met w/fam @ [facility]. pt is agreeable w/D/C to [facility] and signed IM and choice form - placed on chart. - poss D/C 09/11, Dago will transpt. MAGDALENO LOYA RN-Reverse Engineer - 09/10/2018 10:08 EDT documented in this encounter Plan of Treatment Upcoming Encounters Date Type Department Care Team (Late st Contact Info) Description 10/27/2024 10:00 AM EDT Appointment [facility] [address] [place] [address] Adalberto Painting MD [address] [place] [address] 10/29/2024 10:30 AM EDT Audio - Telemedicine [facility] [address] [facility] [address] [place] [address] [place] [address] [place] [address] [address] documented as of this encounter Visit Diagnoses Not on filedocumented in this encounter Care Teams Legal Instructor Relationship Specialty Start Date End Date Martinez Canseco MD [address] [place] [address] PCP - General Family Medicine 10/05/22 documented as of this encounter
--- OUTSIDE RECORDS SUMMARY | 2024-10-14 15:50 | XMS_ITS | Encounter Summary ---
Author Organization [employer] ([place], [place], [place], [place]) Address [address] [place] [address] Care Team Providers Care Quality Consultant Name Role Phone Martinez Canseco MD Primary Care Provider [phone] Encounter Details Date Type Department Care Team (Late st Contact Info) Description 09/12/2018 Transcribed Document [facility] Family Medicine [address] [place] [address] ProviderIvan MD [address] [place], [place] [address] Social History Tobacco Use Types Packs/Day Years Used Date Smoking Tobacco: Never Assessed Sex and Gender Information Value Date Recorded Sex Assigned at Male 09/13/2021 8:33 PM CDT Legal Sex Male 8:33 PM CDT Gender Identity Male 09/13/2021 8:33 PM CDT Sexual Orientation Not on file documented as of this encounter Miscellaneous Notes * Cerner Conversion Note - Ivan Nino MD - 09/12/2018 2:14 PM CDT On Going Discharge Planning Entered On: 09/12/2018 14:19 EDT Performed On: 09/12/2018 14:14 EDT by BIRGIT IQBAL Dopeman Care Management Progress Note Discharge Arrangements : Patient Post-Acute Information Patient Name: AUGUSTO PACHECO Gender: Male : [birth year] Age: 67 Years [place] Referral(s): Service: Organization: Business Address: Phone Number: [facility] [address] [place], [address] Discharge Options Discussed with Patient : DME, Home Health, Short term rehabilitation Barriers to Discharge Identified : Clinical Condition of Patient Barriers to Discharge Unresolved : Clinical Condition of Patient Patient Offered Choice/Affiliations Explained : Yes Is the Patient Meeting Medical Necessity : Yes BIRGIT IQBAL Dopeman - 09/12/2018 14:14 EDT Narrative Progress Note Narrative Progress Note : Continue to follow for discharge needs and arrangements, chart reviewed, day 10, 6 liters O2, BUN=32, WBC=10.6, CXR=IMPRESSION: Stable bibasilar airspace disease and small pleural effusions; s/p bronch, afib over night, started IV Amio/transition to PO Amio, PT/OT following - plan is to transition to [facility] for rehab placement; updated clinical information has been forwarded to facility to day via [employer]. CM will continue to follow. BIRGIT IQBAL Social Worker - 09/12/2018 14:14 EDT Electronically signed by Ki Dixon Conversion Revenue Enforcement Collection Agent Cerner at 07/05/2022 8:51 PM CDT documented in this encounter Plan of Treatment Upcoming Encounters Date Type Department Care Team (Late st Contact Info) Description 10/27/2024 10:[address] [facility] ([place], [place]) 1 [place] [address] Adalberto Painting MD [address] [place] [address] [address] 10/29/2024 10:30 AM EDT Audio - Telemedicine [facility] [address] [place] [address] [address] [place] [address] Adalberto Painting MD [address] [place] [address] [address] documented as of this encounter Visit Diagnoses Not on filedocumented in this encounter Care Teams Quality Consultant Relationship Specialty Start Date End Date Martinez Canseco MD [address] [place] [address] PCP - General Family Medicine 10/05/22 documented as of this encounter
--- OUTSIDE RECORDS SUMMARY | 2024-10-14 15:50 | XMS_ITS | Encounter Summary ---
Author Organization [employer] ([place], [place], [place], [place]) Address [address] [place] [address] Care Team Providers Care Plastic Panel Installer Name Role Phone Martinez Canseco MD Primary Care Provider [phone] Encounter Details Date Type Department Care Team (Late st Contact Info) Description 09/09/2018 Transcribed Document [facility] [place] [address] [place] [address] ProviderIvan MD [address] [place], [place] [address] Social History Tobacco Use Types Packs/Day Years Used Date Smoking Tobacco: Never Assessed Sex and Gender Information Value Date Recorded Sex Assigned at Male 09/13/2021 8:33 PM CDT Legal Sex Male 8:33 PM CDT Gender Identity Male 09/13/2021 8:33 PM CDT Sexual Orientation Not on file documented as of this encounter Miscellaneous Notes * Cerner Conversion Note - Ivan ProviderMD - 09/09/2018 5:00 AM CDT Height and Weight, Routine Entered On: 09/09/2018 4:21 EDT Performed On: 09/09/2018 5:00 EDT by Blaine Miranda Care Asst-Health Unit Coord Height and Weight, Routine Routine Weight Source : Bed scale Routine Weight Entry Format : Highland Routine Weight, Pounds : 219 lb Routine Weight, Ounces : 4 oz Routine Weight Calculation : 99.66 kg Height Source : Stated Height Entry Format : [place]land Height, Feet : 6 ft Height, Inches : 1 Inch Clinical Height : 185.42 cm Body Surface Area (BSA), Routine : 2.24 m2 Body Mass Index (BMI), Routine : 28.99 kg/m2 Blaine Miranda Care Asst-Health Unit Coord - 09/09/2018 4:21 EDT Electronically signed by Destiny [facility] Conversion Professor Of Political Science Cerner at 07/05/2022 8:40 PM CDT documented in this encounter Plan of Treatment Upcoming Encounters Date Type Department Care Team (Late st Contact Info) Description 10/27/2024 10:00 AM EDT Appointment [facility] 1 [place] [address] Adalberto Painting MD [address] [place] [address] [address] [place] [address] 10/29/2024 10:30 AM EDT Audio - Telemedicine [facility] [address] [place] [address] [place] [address] Adalberto Painting MD [address] [place] [address] [address] [place] [address] documented as of this encounter Visit Diagnoses Not on filedocumented in this encounter Care Teams Plastic Panel Installer Relationship Specialty Start Date End Date Martinez Canseco MD [address] [place] [address] PCP - General Family Medicine 10/05/22 documented as of this encounter
--- OUTSIDE RECORDS SUMMARY | 2024-10-14 15:50 | XMS_ITS | Encounter Summary ---
Author Organization [facility] ([place], [place], [place], [place]) Address [address] [place] [address] Care Team Providers Care Wind Turbine Sheet Metal Worker Name Role Phone Martinez Canseco MD Primary Care Provider [phone] Encounter Details Date Type Department Care Team (Late st Contact Info) Description 09/13/2018 Transcribed Document [facility] [place] [facility] [address] [place] [address] ProviderIvan MD [address] [place] [address] Social History Tobacco Use Types Packs/Day Years Used Date Smoking Tobacco: Never Assessed Sex and Gender Information Value Date Recorded Sex Assigned at Male 09/13/2021 8:33 PM CDT Legal Sex Male 8:33 PM CDT Gender Identity Male 09/13/2021 8:33 PM CDT Sexual Orientation Not on file documented as of this encounter Miscellaneous Notes * Cerner Conversion Note - Ivan ProviderMD - 09/13/2018 5:00 AM CDT Chart Check - Review Order Profile Entered On: 09/13/2018 5:24 EDT Performed On: 09/13/2018 5:00 EDT by Rosa Elena Mancia, RN Chart Check Powerplans Initiated/Discontinued as Appropriate : Yes All Active Orders Reviewed : Yes Rosa Elena Mancia, RN - 09/13/2018 5:24 EDT documented in this encounter Plan of Treatment Upcoming Encounters Date Type Department Care Team (Late st Contact Info) Description 10/27/2024 10:00 AM EDT Appointment [facility] MRI 1 [place] [address] Adalberto Painting MD [address] [facility] [address] [place] [address] [phone] 10/29/2024 10:30 AM EDT Audio - Telemedicine [facility] [address] [place] [address] [address] [place] [address] Adalberto Painting MD [address] [facility] [address] [place] [address] [phone] documented as of this encounter Visit Diagnoses Not on filedocumented in this encounter Care Teams Wind Turbine Sheet Metal Worker Relationship Specialty Start Date End Date Martinez Canseco MD [address] [place] [address] PCP - General Family Medicine 10/05/22 documented as of this encounter
--- OUTSIDE RECORDS SUMMARY | 2024-10-14 15:50 | XMS_ITS | Encounter Summary ---
Author Organization [employer] ([place], [place], [place], [place]) Address [address] [place] [address] Care Team Providers Care Shot Polisher Name Role Phone Martinez Canseco MD Primary Care Provider [phone] Encounter Details Date Type Department Care Team (Late st Contact Info) Description 09/06/2018 Transcribed Document [facility] Pulm & Critical Care Medicine [address] [place] [address] [address] [place] [address] [place] [address] [address] [place] [address] Social History Tobacco Use Types [...] Conversion Note - Leeroy Garvey MD - 09/06/2018 12:38 PM EDT Patient: AUGUSTO PACHECO Age: 67 [...] to have MVCAD. He was transferred to [facility] for CTS evaluation. On 09/04, he [...] beers per day Family History CAD POD 1 Vent Day 2 ICU Day 2 09/06: [...] CXR is better on rt apical infiltrate drips : insulin epi IVF ; to KVO Review of Systems Unable to obtain: Due [...] inhalation solution: 3 mL, Nebulized Inhalation, RT_Q6H EPINEPHrine injection 5 mg + NaCl 0.9% [...] Reglan: 10 mg, Oral, Q6H, PRN: Nausea/Vomiting Robitussin: 100 mg, Oral, Q6H Senokot: 17.2 mg, Oral, At Bedtime Tylenol: [...] 0.9% for drip 100 mL: Titrate, IntraVENous fentaNYL injection 1,000 mcg + Premix Diluent NaCl 0.9% for Drip 100 mL: Titrate, IntraVENous glucagon: 1 mg, IntraMuscular, Q15Min, PRN: Other (See Comment) glucose 4 g oral tablet, chewable: 16 Gram, 4 Tab, Chew, Q15Min, PRN: Other (See Comment) glucose 40% oral gel: 15 Gram, Oral, Q15Min, PRN: Other (See Comment) lidocaine 1% preservative-free injectable solution: 0.5 mL, IntraDermal, 1-Time lisinopril: 40 mg, Oral, Daily metoprolol tartrate: 12.5 mg, Oral, BID morphine: [...] 25 mg, Oral, Daily, 0 Refill(s), Medications (46) Active Scheduled: (16) #NaCl 0.9% *FLUSH* inj 10 mL 10 mL, IV Push, Q12H albuterol-ipratropium inh 3 mL 3 mL, Nebulized Inhalation, RT_Q6H ascorbic acid 500 mg tab 500 mg 1 Tab, Oral, BID aspirin EC 81 mg tab 81 mg 1 Tab, Oral, Daily atorvastatin 20 mg tab 20 mg 1 Tab, Oral, At Bedtime budesonide 0.5 mg/2 mL inh susp 0.5 mg 2 mL, Nebulized Inhalation, RT_BID ceFAZolin 2 Gram 100 mL, IV Piggyback, PREOP docusate sodium 100 mg cap 100 mg 1 Cap, Oral, BID famotidine 20 mg/2 mL inj 20 mg 2 mL, IV Push, BID guaiFENesin 200 mg/10 mL liq 100 mg 5 mL, Oral, Q6H lidocaine 1% *PF* inj 2 mL 0.5 mL, IntraDermal, 1-Time lisinopril 20 mg tab 40 mg 2 Tab, Oral, Daily metoprolol tartrate 25 mg tab 12.5 mg 0.5 Tab, Oral, BID mupirocin 2% nasal oint 1 g 1 Application, Nostrils Both, BID pantoprazole EC 40 mg tab 40 mg 1 Tab, Oral, Daily senna 8.6 mg tab 17.2 mg 2 Tab, Oral, At Bedtime Continuous: (8) D5/NaCl 0.225% 1,000 mL 1,000 mL, IntraVENous, 30 mL/Hr dexmedetomidine 400 mcg + NaCl 0.9% TITRATE 100 mL 100 mL, IntraVENous EPINEPHrine 5 mg + NaCl 0.9% T ITRATE 250 mL 250 mL, IntraVENous fentaNYL 1,000 mcg + Premix Diluent NaCl 0.9% TITRATE 100 mL 100 mL, IntraVENous insulin regular 100 Units + NaCl 0.9% 100 mL 100 mL, IntraVENous lactated ringers 1,000 mL 1,000 mL, IntraVENous, 20 mL/Hr propofol 1,000 mg + Premix Diluent Titrate 100 mL 100 mL, IntraVENous vasopressin 20 Units + NaCl 0.9% TITRATE 100 mL 100 mL, IntraVENous PRN: (22) #NaCl 0.9% *FLUSH* inj 10 [...] 100 mL, IV Push, 1-Time Problem list: Medical At risk for sleep apnea / IMO [id number] / Confirmed Cardiomegaly / SNOMED CT 14381690 / Confirmed 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 Pulmonary fibrosis / SNOMED CT 88231968 / Confirmed COPD, moderate / SNOMED CT 055465808 / Confirmed Pneumonia / SNOMED CT 390058413 / Confirmed Smoker / SNOMED CT 706155458 / Confirmed, Active Problems (13) At risk for sleep apnea CAD (coronary artery disease) Cardiomegaly COPD, moderate H/O hernia repair H/O right heart catheterization History of broken nose History of colostomy reversal History of tonsillectomy Pneumonia Pulmonary fibrosis Smoker Steroid-dependent COPD Physical Examination VS/Measurements Vitals Signs (last 24 hrs) Last Charted Minimum Maximum Temp 99.3 (SEP 05 16:00) 98.3 (SEP 05 12:00) 99.3 (SEP 05 16:00) Mon HR 76 (SEP 06 10:36) 66 (SEP 05 12:00) 83 (SEP 06 02:00) Resp Rate H 23 (SEP 06 07:00) H 23 (SEP 05 12:00) H 26 (SEP 06 04:00) SBP 111 (SEP 06 07:00) 97 (SEP 05 20:00) H 150 (SEP 05 12:00) DBP 61 (SEP 06 07:00) L 54 (SEP 05 20:00) 72 (SEP 05 12:00) MAP 70 (SEP 06 07:00) 60 (SEP 05 20:00) 103 (SEP 05 12:00) SpO2 98 (SEP 06 10:36) 95 (SEP 05 14:00) 98 (SEP 05 13:00) Intake & Output Totals Last 24 Hours (7a-7a) Intake (177 Events) Continuous Infusions (2429.5302 mL) Medications (999.3 mL) Other Intake (70 mL) Output (32 Events) Chest Tube Output: (230 mL) Chowdary Catheter (1595 mL) Gastric Tube Output: (200 mL) Input Total: 3498.8302 mL Output Total: 2025 mL Balance: 1473.8302 mL General: Sedate on Vent. RASS 0. Following commands cam negative . Eye: Pupils are equal, round and reactive to light, Normal conjunctiva. HENT: Normocephalic. Neck: Supple, Non-tender, No lymphadenopathy. Respiratory: Respirations are non-labored. Cardiovascular: Normal rate, Good pulses equal in all extremities. Gastrointestinal: Soft, Non-tender, Non-distended, Normal bowel sounds. Musculoskeletal: No deformity. Integumentary: Warm, Dry, No rash. Neurologic: sedated on vent, No focal deficits cam negative . Review / Management Results review: Labs (Last four charted values) WBC H 12.9 (SEP 06) H 15.5 (SEP 05) H 12.0 (CAYETANO 19) 8.6 (CAYETANO 18) HB L 10.0 (CAYETANO 21) L 10.2 (CAYETANO 20) L 11.9 (CAYETANO 20) L 11.4 (CAYETANO 19) HCT L 30.0 (CAYETANO 21) L 30.4 (CAYETANO 20) L 35.0 (CAYTEANO 20) L 33.7 (CAYETANO 19) Plt L 137 (CAYETANO 21) 177 (CAYETANO 20) L 147 (CAYETANO 19) 165 (CAYETANO 18) Na 141 (CAYETANO 21) 139 (CAYETANO 20) 141 (CAYETANO 19) 138 (CAYETANO 18) K 4.4 (CAYETANO 21) 4.0 (CAYETANO 20) 4.7 (CAYETANO 20) 4.3 (CAYETANO 19) Cl 110 (CAYETANO 21) 109 (CAYETANO 20) 110 (CAYETANO 19) 107 (CAYETANO 18) CO2 27 (CAYETANO 21) 23 (CAYETANO 20) 26 (CAYETANO 19) 25 (CAYETANO 18) BUN 12 (CAYETANO 21) 14 (CAYETANO 20) 13 (CAYETANO 19) 20 (CAYETANO 18) Cr 0.80 (CAYETANO 21) 0.90 (CAYETANO 20) 0.90 (CAYETANO 19) 1.00 (CAYETANO 18) Glu R H 169 (CAYETANO 21) H 180 (CAYETANO 20) H 131 (CAYETANO 19) 101 (CAYETANO 18) Ca 8.8 (CAYETANO 21) 8.4 (CAYETANO 20) 8.5 (CAYETANO 19) 9.7 (CAYETANO 18) PT 10.5 (CAYETANO 21) 10.7 (CAYETANO 18) [...] 18) 74 (CAYETANO 17) T Bili 0.4 (CAYETANO 21) 1.0 (CAYETANO 19) 0.4 (CAYETANO 18) 0.6 (CAYETANO 17) PTN L 5.8 (CAYETANO 21) 6.6 (CAYETANO 19) 6.7 (CAYETANO 18) 6.5 (CAYETANO 17) ALB L 3.1 (CAYETANO 21) L 3.3 (CAYETANO 19) L 3.3 (CAYETANO 18) 3.5 (SEP 02) . Radiology Results (Last 48 hours) [id number] -- 09/02/2018 14:21 CR Chest 1 Vw Portable (09/04/2018 23:47) [...] by Dr. Al Kinney.Transcribed by Imelda Pelletier (R).I have personally viewed, interpreted and dictated the examination. Ihave read and agree with the above final transcribed report. CR Chest 1 Vw Portable (09/05/2018 03:41) [...] dictated by Dr. Al Kinney.Transcribed by Imelda Pleletier (Sloan).I have personally viewed, interpreted and dictated the examination. Ihave read and agree with the above final transcribed report. CR Chest 1 Vw Portable (09/05/2018 10:34) Result: PORTABLE CHEST 09/05/2018 9:58 AM HISTORY: Low oxygen saturation.COMPARISON: Chest x-ray from approximately 6 hours prior.FINDINGS: The heart is stable in size . The lung collins demonstrateno significant change in the hyperinflation, right paratracheal opacity,bibasilar opacity, and small pleural effusions. There is a questionablesmall left pneumothorax. The support devices are in good position . Thepatient is status post median sternotomy.IMPRESSION: There has been no significant interval change . Continued follow-up recommended .Films reviewed, interpreted, and dictated by Dr. Kinney.Transcribed by Renuka Awad PA-C.I have personally viewed, interpreted and dictated the examination. Ihave read and agree with the above final transcribed report. CR Chest 1 Vw Portable (09/06/2018 04:20) Result: PORTABLE CHEST 09/06/2018 4:00 AM HISTORY: Pleural effusion.COMPARISON: Film obtained the previous day .FINDINGS: The heart is mildly enlarged. The patient is status postmedian sternotomy. There is a small left effusion and a lower lobeinfiltrate. A right paratracheal opacity is noted. There is nopneumothorax. The support devices are in good position. IMPRESSION: Post operative changes. Continued follow up recommended.Images reviewed, interpreted, and dictated by Dr. Al Kinney.Transcribed by Imelda Pelletier (Sloan).I have personally viewed, interpreted and dictated the examination. Ihave read and agree with the above final transcribed report. CXR; no pneumo, small left effusion, and atelectasi, sternotomy, and improved Rt paratracheal infiltrate : more aeration DATE OF STUDY: 09/02/2018 Race: . Height: [...] emphysema and decreased diffusion capicity b: probable pulm vasc congestion and chronic intersitial markings noted on CXR c. probable RUL infiltrate / collpase and worsening left lower lung infiltrate d. ( it was reported that pt may have a basilar pneumothorax: this is minimal , pt has a left pleural chest tube no air leak 2. Cardiac: CAD CABG x 2 with mitral reapin ICM ERF 40% 3. ID -Leukocytosis--Probable Acute Phase Reactant improved 4. Renal -Stable Cr/BUN 5. GI -NPO 6. DVT/GI Plan Pulm and CCM Attending Note: I performed personally History evaluation, Review of systems, Physical examniation and reviewed Labs as well as Radiology data and Medications, I discussed with allied staff patient???s condition and discussed findings, I formulated diagnoses/impression and plan I also discussed my impression and plan for the day with patient???s nurse Patient requires a high complexity of decision making for assessment. Overall my opinion and recommendations are: Vent Bundle TV to 510 ml ( as per pt basia 6'3 ) and rate to 23 SBT today, proceed to extubation today Sedation--Precedex--RASS -1/0 for trial record cam icu Hemodynamic Support per CTS Protocol keep map> 65 Glycemic Control per CTS protocol Mucinex Duonebs Q6 and prn will hold on doing CT chest WO due to improvement in Right upper Lung abnormality Pepcid/Start DVT prophylaxis when ok with CTS glycemic control as per CTS protcol AM labs ordered/CXR ordered prognosis : guarded code : full dispo : ICU cct 34 mins discussed with family documented in this encounter Plan of Treatment Upcoming Encounters Date Type Department Care Team (Late st Contact Info) Description 10/27/2024 10:00 AM EDT Appointment [facility] MRI 1 [place] [id number] [place] [address] [place] [address] [address] [place] [phone] 10/29/2024 10:30 AM EDT Audio - Telemedicine [facility] [address] [place] [address] [address] [place] [address] [place] [address] [place] [address] [address] [place] [address] [phone] documented as of this encounter Visit Diagnoses Not on filedocumented in this encounter Care Teams Shot Polisher Relationship Specialty Start Date End Date Martinez Canseco MD [address] [place] [address] PCP - General Family Medicine 10/05/22 documented as of this encounter
--- OUTSIDE RECORDS SUMMARY | 2024-10-14 15:50 | XMS_ITS | Encounter Summary ---
Author Organization [employer] ([place], [place], [place], [place]) Address [address] [place] [address] Care Team Providers Care Tc Operator Name Role Phone Martinez Canseco MD Primary Care Provider [phone] Encounter Details Date Type Department Care Team (Late st Contact Info) Description 09/12/2018 Transcribed Document [facility] Pulm & Critical Care Medicine [address] [place] [address] [address] [place] [address] [place] [address] [address] [place] [address] Social History Tobacco Use Types [...] Conversion Note - Leeroy Garvey MD - 09/12/2018 10:31 AM EDT Patient: AUGUSTO PACHECO Age: 67 years Sex: Male : 1950 Associated Diagnoses: None Author: LEEROY GARVEY MD Basic Information HPI: Thisis a 67 [...] to have MVCAD. He was transferred to [facility] for CTS evaluation. On 09/04, he underwent [...] 2-3 beers per day Family History CAD Vent Day 2 ICU Day 2 09/06: [...] reconsulted today secondary to increased o2 requirements 09/12: Patient s/p bronch yesterday for therapeutic aspiration. Seen today resting in bed on 8L HF cannula saturations 96-97% on monitor, culture no growth to date. States he is breating better today, no shortness of breath. No cough. No n/v this morning. ( at present pt is on 4 liter HF and sat 95% and has productive cough , thin mucoid sputum) moderate HOB > 40 ambulated once today Review of Systems Constitutional: No fever. Eye: Negative. Ear/Nose/Mouth/Throat: Negative. Respiratory: No shortness of breath, No cough, No sputum production, No wheezing. Cardiovascular: No chest pain. Gastrointestinal: No nausea, No vomiting, No abdominal pain. Genitourinary: Negative. Musculoskeletal: No back pain. Integumentary: Negative. Neurologic: Alert and oriented X4. Psychiatric: Negative. reviewed, evaluated, and updated Health Status Allergies: Allergic Reactions (Selected) No [...] inhalation solution: 3 mL, Nebulized Inhalation, RT_Q6H Lactated Ringers Injection intravenous solution 1,000 mL: 20 mL/Hr, IntraVENous Lasix: 20 mg, IV Push, 1-Time, PRN: Other (See Comment) Lidocaine Viscous 2% mucous membrane solution: 1 Application, Topical, On-CALL Lipitor: 20 mg, Oral, At Bedtime Milk of Magnesia 8% oral suspension: 30 mL, Oral, Daily, PRN: Constipation Mucinex: 1,200 mg, Oral, Daily Nitrostat: 0.4 mg, SubLINgual, Q5Min, PRN: Pain [...] 4 mg, IV Push, Q4H, PRN: Nausea acetylcysteine 20% inhalation solution: 1 mL, Nebulized Inhalation, RT_Q6H albumin human 5% intravenous solution: 12.5 Gram, 250 mL, IntraVENous, Daily, PRN: Other (See Comment) amiodarone injection 450 mg + Dextrose 5% in Water intravenous solution 250 mL: Titrate, IntraVENous aspirin: 81 mg, Oral, Daily glucagon: 1 mg, IntraMuscular, Q15Min, PRN: Other (See Comment) glucose 4 g oral tablet, chewable: 16 Gram, 4 Tab, Chew, Q15Min, PRN: Other (See Comment) glucose 40% oral gel: 15 Gram, Oral, Q15Min, PRN: Other (See Comment) lidocaine 1% injectable solution: 0.5 mL, IntraDermal, 1-Time, PRN: Other (See Comment) metoprolol tartrate: 12.5 mg, Oral, BID morphine: [...] 25 mg, Oral, Daily, 0 Refill(s), Medications (37) Active Scheduled: (12) #NaCl 0.9% *FLUSH* inj 10 mL 10 mL, IV Push, Q12H acetylcysteine 20% liq 4 mL 1 mL, Nebulized Inhalation, RT_Q6H albuterol-ipratropium inh 3 mL 3 mL, Nebulized Inhalation, RT_Q6H aspirin EC 81 mg tab 81 mg 1 Tab, Oral, Daily atorvastatin 20 mg tab 20 mg 1 Tab, Oral, At Bedtime budesonide 0.5 mg/2 mL inh susp 0.5 mg 2 mL, Nebulized Inhalation, RT_BID docusate sodium 100 mg cap 100 mg 1 Cap, Oral, BID guaiFENesin 600 mg ER tab 1,200 mg 2 Tab, Oral, Daily lidocaine 4% topical soln 50 mL 1 Application, Topical, On-CALL metoprolol tartrate 25 mg tab 12.5 mg 0.5 Tab, Oral, BID pantoprazole EC 40 mg tab 40 mg 1 Tab, Oral, Daily senna 8.6 mg tab 17.2 mg 2 Tab, Oral, At Bedtime Continuous: (2) amiodarone 450 mg + Dextrose 5% in Water 250 mL 250 mL, IntraVENous lactated ringers 1,000 mL 1,000 mL, IntraVENous, 20 mL/Hr PRN: (23) #NaCl 0.9% *FLUSH* inj 10 [...] gel 15 g 15 Gram, Oral, Q15Min lidocaine 1% *PF* inj 2 mL 0.5 mL, IntraDermal, 1-Time magnesium hydroxide 8% liq 30 mL 30 [...] At risk for sleep apnea / IMO [id number] / Confirmed Cardiomegaly / SNOMED CT 35974316 / Confirmed 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 CAD (coronary artery disease) / SNOMED CT 30108964 / Confirmed Pulmonary fibrosis / SNOMED CT 37391831 / Confirmed History of colostomy reversal / SNOMED CT 878461529 / Confirmed History of broken nose / SNOMED CT 9120693838 / Confirmed H/O right heart catheterization / SNOMED CT 8712423259 / Confirmed H/O hernia repair / SNOMED CT 7964928956 / Confirmed History of tonsillectomy / SNOMED CT 9170180103 / Confirmed COPD, moderate / SNOMED CT 890243201 / Confirmed Pneumonia / SNOMED CT 386502994 / Confirmed Smoker / SNOMED CT 039172717 / Confirmed, Active Problems (13) At risk for sleep apnea CAD (coronary artery disease) Cardiomegaly COPD, moderate H/O hernia repair H/O right heart catheterization History of broken nose History of colostomy reversal History of tonsillectomy Pneumonia Pulmonary fibrosis Smoker Steroid-dependent COPD Physical Examination VS/Measurements Vitals Signs (last 24 hrs) Last Charted Minimum Maximum Temp 97.3 (SEP 12 06:00) 97.3 (SEP 12 06:00) 98 (SEP 11 18:00) Apical HR 96 (SEP 12 07:49) 96 (SEP 12 07:49) H 115 (SEP 11 21:06) Mon HR 100 (SEP 12 09:09) 98 (SEP 11 14:28) 115 (SEP 11 20:57) Resp Rate 18 (SEP 12 06:00) 17 (SEP 11 18:00) H 25 (SEP 11 10:02) SBP 97 (SEP 12 06:00) 94 (SEP 11 14:28) 119 (SEP 11 20:57) DBP 61 (SEP 12 06:00) L 59 (SEP 11 14:28) 78 (SEP 11 20:57) MAP 72 (SEP 12 06:00) 69 (SEP 11 14:28) 89 (SEP 11 20:57) SpO2 95 (SEP 12 08:40) L 90 (SEP 11 09:40) 97 (SEP 11 20:57) Intake & Output Totals Last 24 Hours (7a-7a) Intake (4 Events) Medications (26 mL) Output (1 Events) Urine Voided (Volume) (600 mL) Input Total: 26 mL Output Total: 600 mL Balance: -574 mL General: Alert and oriented, No acute distress. Eye: Normal conjunctiva. HENT: Normocephalic, Oral mucosa is moist. Neck: No lymphadenopathy. Respiratory: Respirations are non-labored, diminished left lower base, no wheezing + ronchi RLL . Cardiovascular: Normal rate, No edema. Gastrointestinal: Soft, Non-tender, distended upper quad bilateral, hyperactive bowel sounds. Integumentary: Warm, Dry. Neurologic: Alert, Oriented, No focal deficits. Psychiatric: Cooperative, Appropriate mood & affect. reviewed, evaluated, and updated Review / Management Results review: Labs (Last four charted values) WBC H 10.6 (SEP 12) H 9.9 (AUG 26) 8.6 (AUG 25) 9.1 (CAYETANO 24) HB L 10.3 (SEP 12) L 10.1 (SEP 11) L 10.0 (AUG 25) L 10.8 (CAYETANO 24) HCT L 31.8 (CAYETANO 27) L 30.4 (CAYETANO 26) L 30.1 (CAYETANO 25) L 32.7 (CAYETANO 24) Plt 355 (CAYETANO 27) 327 (CAYETANO 26) 282 (CAYETANO 25) 282 (CAYETANO 24) Na 144 (CAYETANO 27) 146 (CAYETANO 26) 145 (CAYETANO 25) 142 (CAYETANO 24) K 3.8 (CAYETANO 27) 3.6 (CAYETANO 26) 3.8 (CAYETANO 25) 3.7 (CAYETANO 24) Cl 106 (CAYETANO 27) 106 (CAYETANO 26) 106 (CAYETANO 25) 106 (CAYETANO 24) CO2 H 36 (CAYETANO 27) H 37 (CAYETANO 26) H 35 (CAYETANO 25) 31 (CAYETANO 24) BUN H 32 (CAYETANO 27) H 31 (CAYETANO 26) H 43 (CAYETANO 25) H 34 (CAYETANO 24) Cr 1.10 (CAYETANO 27) 0.90 (CAYETANO 26) 1.10 (CAYETANO 25) 1.20 (CAYETANO 24) Glu R H 107 (CAYETANO 27) H 116 (CAYETANO 26) H 109 (CAYETANO 25) H 140 (CAYETANO 24) Ca 10.0 (CAYETANO 27) 9.9 (CAYETANO 26) 9.9 (CAYETANO 25) H 10.2 (CAYETANO 24) PT 10.5 (CAYETANO 21) 10.7 (CAYETANO 18) [...] 17) . Radiology Results (Last 48 hours) [id number] -- 09/02/2018 14:21 CTA Chest PE Protocol (09/10/2018 17:15) Result: CT ANGIOGRAM THORAXHISTORY: Hypoxia. Shortness of breath.TECHNIQUE: Thin section axial CT with IV contrast supplemented [id number] MIP images. FINDINGS: Pulmonary vessels enhance in [...] Dr. Andrea Porter.Transcribed by Wai Vazquez PA-C, R.T. (N), C N M T.I [...] agree with the above final transcribed report. CXR 09/12: bibasilart atelectasis , and small pleural effusions , rad reviewed DATE OF STUDY: 09/02/2018 Race: . Height: [...] parenchymal disease, anemia, and/or pulmonary vascular disease. cx is pending procal pending Impression and Plan 1. Acute Hypoxemic Respiratory Failure: improved reqs to 4 liters HF due to a. base line moderate copd and emphysema and decreased diffusion capicity b, bilateral dense atelectasis , sec to extensive mucoid thick secretions RLL, RML, RIB c. RLL collpase and endobronchial mucous plugging noted s/p FOB 09/11 : extensive secretions as above d. bilateral effusion ; small left > rt 2. Cardiac: CAD CABG x 2 with mitral valve repair ICM EF 40% 3. ID -Leukocytosis--Probable Acute Phase Reactant 4. Prophylaxis Plan Pulm and CCM Attending [...] recommendations are: Titrate o2. Sat > 92% nebs Q6 H and pulmicort encourage pulmonary toilet and activity can use NIPPV HS and PRN Pepcid/Start DVT prophylaxis when ok with CTS procal citonin follow BAL cx check CXR in am pt needs aggressive mobility pt will needs cardio pulm rehab no need for abx at presetrn will follow... if procal elevated and + cx then will start abx DVT proph : defer to CTS team < pt : will need that thanks krzysztof level 3 documented in this encounter Plan of Treatment Upcoming Encounters Date Type Department Care Team (Late st Contact Info) Description 10/27/2024 10:00 AM EDT Appointment [facility] [address] [place] [phone] [place] [address] [place] [address] [address] [place] [address] 10/29/2024 10:30 AM EDT Audio - Telemedicine [facility] [address] [place] [address] [address] [place] [address] [place] [address] [place] [address] [address] [place] [address] documented as of this encounter Visit Diagnoses Not on filedocumented in this encounter Care Teams Tc Operator Relationship Specialty Start Date End Date Martinez Canseco MD [address] [place] [address] PCP - General Family Medicine 10/05/22 documented as of this encounter
--- OUTSIDE RECORDS SUMMARY | 2024-10-14 15:50 | XMS_ITS | Encounter Summary ---
Author Organization [employer] ([place], [place], [place], [place]) Address [address] [place] [address] Care Team Providers Care Mannequin Molder Name Role Phone Martinez Canseco MD Primary Care Provider [phone] Encounter Details Date Type Department Care Team (Late st Contact Info) Description 09/06/2018 Transcribed Document [facility] [place] [address] [place] [address] ProviderIvan MD [address] [place] [address] Social History Tobacco Use Types Packs/Day Years Used Date Smoking Tobacco: Never Assessed Sex and Gender Information Value Date Recorded Sex Assigned at Male 09/13/2021 8:33 PM CDT Legal Sex Male 8:33 PM CDT Gender Identity Male 09/13/2021 8:33 PM CDT Sexual Orientation Not on file documented as of this encounter Miscellaneous Notes * Cerner Conversion Note - Historical ProviderMD - 09/06/2018 9:53 AM CDT Attempt to Treat, PT Entered On: 09/06/2018 9:54 EDT Performed On: 09/06/2018 9:53 EDT by Kalen Singleton, Student-Rehab Attempt to Treat Unable to Treat Due To : Patient on hold Kalen Singleton, Student-Rehab - 09/06/2018 9:53 EDT Inability to Treat Comment : Ziyad Flaherty reported that PT should check back tomorrow because patient should be extubated by then. PT has reviewed and agrees with note. KAYLAN SOARES, PT - 09/06/2018 10:39 EDT Electronically signed by Destiny, [facility] Conversion Field Human Resources Manager Cerner at 07/05/2022 8:37 PM CDT documented in this encounter Plan of Treatment Upcoming Encounters Date Type Department Care Team (Late st Contact Info) Description 10/27/2024 10:00 AM EDT Appointment [facility] MRI 1 [place] [address] Adalberto Painting MD [address] [place] [address] [address] [place] [address] 10/29/2024 10:30 AM EDT Audio - Telemedicine [facility] [address] [place] [address] [place] [address] Adalberto Painting MD [address] [place] [address] [place] [address] [phone] documented as of this encounter Visit Diagnoses Not on filedocumented in this encounter Care Teams Mannequin Molder Relationship Specialty Start Date End Date Martinez Canseco MD [address] [place] [address] PCP - General Family Medicine 10/05/22 documented as of this encounter
--- OUTSIDE RECORDS SUMMARY | 2024-10-14 15:50 | XMS_ITS | Encounter Summary ---
Author Organization [facility] ([place], [place], [place], [place]) Address [address] [place] [address] Care Team Providers Care Forester Aide Name Role Phone Martinez Canseco MD Primary Care Provider [phone] Encounter Details Date Type Department Care Team (Late st Contact Info) Description 09/06/[address] [facility] [place] Family Medicine [address] [place] [address] ProviderIvan MD [address] [place] [address] Social History Tobacco Use Types Packs/Day Years Used Date Smoking Tobacco: Never Assessed Sex and Gender Information Value Date Recorded Sex Assigned at Male 09/13/2021 8:33 PM CDT Legal Sex Male 8:33 PM CDT Gender Identity Male 09/13/2021 8:33 PM CDT Sexual Orientation Not on file documented as of this encounter Miscellaneous Notes * Cerner Conversion Note - Ivan ProviderMD - 09/06/2018 5:00 PM CDT Chart Check - Review Order Profile Entered On: 09/06/2018 20:46 EDT Performed On: 09/06/2018 17:00 EDT by DESIREE Figueroa, RN Chart Check Powerplans Initiated/Discontinued as Appropriate : Yes All Active Orders Reviewed : Yes DESIREE Figueroa, RN - 09/06/2018 20:46 EDT documented in this encounter Plan of Treatment Upcoming Encounters Date Type Department Care Team (Late st Contact Info) Description 10/27/2024 10:00 AM EDT Appointment [facility] MRI 1 [place] [address] Adalberto Painting MD [address] [facility] [address] [place] [address] [phone] 10/29/2024 10:30 AM EDT Audio - Telemedicine [facility] [address] [place] [address] [address] [place] [address] Adalberto Painting MD [address] [facility] [address] [place] [address] [phone] documented as of this encounter Visit Diagnoses Not on filedocumented in this encounter Care Teams Forester Aide Relationship Specialty Start Date End Date Martinez Canseco MD [address] [place] [address] PCP - General Family Medicine 10/05/22 documented as of this encounter
--- OUTSIDE RECORDS SUMMARY | 2024-10-14 15:50 | XMS_ITS | Encounter Summary ---
Author Organization [employer] ([place], [place], [place], [place]) Address [address] [place] [address] Care Team Providers Care Master Barber Name Role Phone Martinez Canseco MD Primary Care Provider [phone] Reason for Referral * MRI (Routine) - Authorized Specialty Diagnoses / Procedures Referred By Contac t Referred To Contact Radiology Diagnoses Liver mass Procedures MR abdomen without & with IV contrast Adalberto Painting MD [address] [place] [address] [address] [place] [address] Phone: tel: fax: Referral ID Status Reason Start Date Expiration Date V isits Requested Visits Authorized [id number] Authorized 10/13/2024 10/13/2025 1 1 Encounter Details Date Type Department Care Team (Late st Contact Info) Description 10/13/2024 Orders Only [facility] [address] [place] [address] [address] Adalberto Painting MD [address] [place] [address] [place] [address] Liver mass (Primary Dx) Social History Tobacco Use Types Packs/Day Years Used Date Smoking Tobacco: Every Day Cigarettes Smokeless Tobacco: Never Alcohol Use Standard Drinks/Week Comments Yes 0 (1 standard drink = 0.6 oz pur e alcohol) Food Insecurity Answer Date Recorded Food run out past 12 months Not on file 03/19 Food did not last past 12 months Not on file 03/31/2023 Employment Answer Date Recorded Help finding and keeping a job Not on file 0 03/31/2023 Family and Community Support Answer Rufus e Recorded Help with Day to Day Activities Not on file 03/31/2023 Feeling Lonely or Isolated Not on file 03/31 Educational Attainment Answer Date Iain rded Speak language other than Canadian at home Not on file 03/31/2023 Want help with school or training Not on file 03/31/2023 Substance Use Answer Date Recorded Used prescription meds for non-medical reasons N ot on file 03/31/2023 Used illegal drugs past 12 months Not on file 03/31/2023 Sex and Gender Information Value Date Recorded Sex Assigned at Male 09/13/2021 8:33 PM CDT Legal Sex Male 8:33 PM CDT Gender Identity Male 09/13/2021 8:33 PM CDT Sexual Orientation Not on file documented as of this encounter Plan of Treatment Upcoming Encounters Date Type Department Care Team (Late st Contact Info) Description 10/27/2024 10:00 AM EDT Appointment [facility] 1 [place] [address] Adalberto Painting MD [address] [place] [address] [place] [address] 10/29/2024 10:30 AM EDT Audio - Telemedicine [facility] [address] [place] [address] [phone] Adalberto Painting MD [address] [place] [address] [address] [place] [address] Scheduled Orders Name Type Priority Associated Diagnoses Orde r Schedule MR abdomen without & with IV contrast Imaging Routine Liver mass Expected: 10/13/2024, Expires: 11/13/2025 documented as of this encounter Visit Diagnoses Diagnosis Liver mass- Primary Unspecified disorder of liver documented in this encounter Care Teams Master Barber Relationship Specialty Start Date End Date Martinez Canseco MD [address] [place] [address] PCP - General Family Medicine 10/05/22 documented as of this encounter
--- OUTSIDE RECORDS SUMMARY | 2024-10-14 15:50 | XMS_ITS | Referral Summary ---
Author Organization [employer] ([place], [place], [place], [place]) Address [address] [place] [address] Care Team Providers Care Capture Manager Name Role Phone Martinez Canseco MD Primary Care Provider [phone] Encounters Date Type Department Care Team Description 10/13/2024 Orders Only [facility] [address] [place] [address] [place] [address] Adalberto Painting MD Liver mass (Primary Dx) from Last 3 Months Allergies No known active allergies Medications amLODIPine (NORVASC) 5 MG tablet Take 1 tablet (5 mg total) by mouth daily. 07/25/2022 Active aspirin 81 MG EC tablet Take 1 tablet (81 mg total) by mouth. Active atorvastatin (LIPITOR) 20 MG tablet Take 1 tablet (20 mg total) by mouth daily. 09/05/2022 Active carvediloL (COREG) 25 MG tablet Take 1 tablet (25 mg total) by mouth 2 (two) times daily. 08/02/2022 Active Active Problems No known active problems Social History Tobacco Use Types Packs/Day Years [...] on file 03/31 Educational Attainment Answer Date Iani rded Speak language other than Romanian at home Not on file 03/31/2023 Want [...] PM CDT Sexual Orientation Not on file Last Filed Vital Signs Vital Sign Reading Time Taken Comments Blood Pressure 132/79 10/23/2022 9:06 AM EDT Pulse 73 10/23/2022 9:06 AM EDT Temperature - - Respiratory Rate - - Oxygen Saturation - - Inhaled Oxygen Concentration - - Weight 106.6 kg (235 lb) 10/23/2022 9:06 AM EDT Height 185.4 cm (6' 1 ) 10/23/2022 9:06 AM EDT Body Mass Index 31 10/23/2022 9:06 AM EDT Plan of Treatment Upcoming Encounters Date Type Department Care Team (Late st Contact Info) Description 10/27/2024 10:00 AM EDT Appointment [facility] 1 [place] [id number] Adalberto Painting MD [address] [place] [address] [place] [address] 10/29/2024 10:30 AM EDT Audio - Telemedicine [facility] [address] [place] [address] [address] Adalberto Painting MD [address] [place] [address] [address] Insurance MEDICARE PART A B [facility] Care Teams Capture Manager Relationship Specialty Start Date End Date Martinez Canseco MD [address] [place] [address] PCP - General Family Medicine 10/05/22
--- OUTSIDE RECORDS SUMMARY | 2024-10-14 15:50 | XMS_ITS | Encounter Summary ---
Author Organization [employer] ([place], [place], [place], [place]) Address [address] [place] [address] Care Team Providers Care Life Tester Outboard Motors Name Role Phone Martinez Canseco MD Primary Care Provider [phone] Encounter Details Date Type Department Care Team (Late st Contact Info) Description 09/13/2018 Transcribed Document [facility] [place] [address] [place] [address] ProviderIvan MD [address] [place], [place] [address] Social History Tobacco Use Types Packs/Day Years Used Date Smoking Tobacco: Never Assessed Sex and Gender Information Value Date Recorded Sex Assigned at Male 09/13/2021 8:33 PM CDT Legal Sex Male 8:33 PM CDT Gender Identity Male 09/13/2021 8:33 PM CDT Sexual Orientation Not on file documented as of this encounter Miscellaneous Notes * Cerner Conversion Note - Ivan Nino MD - 09/13/2018 11:55 AM CDT Patient: IZABELLA PACHECO Age: 67 years Sex: Male : 1950 Associated Diagnoses: None Author: ANGELINE JAY, GUSSET FOLDER-CTS DISCHARGE DISPOSITION Admission Date: Discharge Date: Attending:Dr. Esvin Butts, CT Surgery PCP:Dr. Martinez Canseco CARD:Dr. Peng Trujillo Consultants:Dr. Leeroy Garvey Brief History:Izabella Pacheco is [...] Mitral valve repair using a 30 mm Paper Huntertronic CG annuloplasty band. 3. Coronary artery bypass [...] Breathing much improved; concerned about A FIB 09/13: POD #9 no complainst; ready to go to rehab Health Status Allergies: Allergic Reactions (Selected) No Known Allergies Current medications.Problem list. Objective VS/Measurements Vital Measurements 09/13/2018 10:35 EDT Heart Rate Monitored 109 bpm HI 09/13/2018 10:06 EDT Systolic Blood Pressure 94 mmHg Temperature, Fahrenheit 97.3 Deg F 09/13/2018 8:38 EDT Heart Rate Monitored 88 bpm 09/13/2018 8:37 EDT Oxygen Saturation 92 % LOW Oxygen Therapy Mode Nasal cannula Oxygen Flow Rate 4 Liter/Min General: Alert and oriented. Respiratory: Lungs are clear to auscultation. Cardiovascular: Normal rate, Regular rhythm. Gastrointestinal: Soft, Non-tender, Non-distended. Chest\ RLE incision>> C D I Tolerates PO Voiding Last BM>> \\19 Ambulates with assistance ( short distance) Results Review General results Today's results 09/13/2018 4:10 EDT Sodium Level 141 mmol/L Potassium Level 3.4 mmol/L LOW Chloride Level 105 mmol/L Carbon Dioxide Level 31 mmol/L Anion Gap 8 LOW Glucose Level 103 mg/dL Blood Urea Nitrogen 33 mg/dL HI Creatinine Level 1.00 mg/dL eGFR >60 mL/min/1.73m2 eGFR NonAfrican >60 mL/min/1.73m2 Bun/Creatinine 33.0 HI Calcium Level 9.3 mg/dL WBC 10.3 K/uL HI RBC 2.91 Million/uL LOW Hgb 9.4 g/dL LOW Hct 27.8 % LOW MCV 95.5 fL HI MCH 32.3 pg HI MCHC 33.8 Gram/dL Platelet Count 370 K/uL HI Interpretation: Radiology Results (Last 48 hours) [id number] -- 09/02/2018 14:21 CR Chest 1 Vw Portable (09/12/2018 06:18) [...] transcribed report. CR Chest 1 Vw Portable (09/13/2018 06:36) Result: PORTABLE CHEST 09/13/2018 4:00 AMHISTORY: Pleural effusionCOMPARISON: 1 day priorFINDINGS: Status post median sternotomy. There is atherosclerosis. Thecardiac silhouette is enlarged. The aortic contours are normal. Themediastinal and hilar structures are unremarkable. There are chronicinterstitial changes. There are bibasilar opacities which may representsmall pleural effusions. There is no pneumothorax. The osseousstructures are unremarkable . IMPRESSION: No significant interval change. Images reviewed, interpreted, and dictated by Dr. Hari Demarco.Transcribed by Ernesto Pradhan PA-C.I have personally viewed, interpreted and dictated the examination. Debi read and agree with the above final transcribed report. Carotid U\S ( \): BILATERAL: < 50% (non flow restricting) stenosis of the internal carotid artery. Normal antegrade vertebral flow. No evidence of subclavian steal. PFT's: 09/02/2018 Race: . Height: 73 inches. Weight: [...] and/or pulmonary vascular disease. Impression and Plan VTE STATUS>>SCDS TOBACCO CESSATION DISCUSSED WITH PATIENT ON HOSPITAL COURSE Admission ( transfer from [facility] 09/03: Carotid duplex and PFTs JESUSITA [...] Family would like discharge to rehab to [facility] - precert initiated Cr improved today Small [...] early am) Pt has Rehab bed at [facility] ( [facility]), if pt remains in sinus and O2 needs are 4 liters or less,>> and SBP stable then will consider transfer tomorrow Pt seen and evaluated by Dr. Urias who agrees with above : Telemetry>>sinus ( no further A Fib since short bout yesterday am) On PO amiodarone; will taper at discharge O2 sat: 94% on 2 liters SBP stable at 97 to 111 Potassium 3.4>> ordered K-dur 20 mg x one Bronch cultures negative so far Stable: ready to discharge to rehab today Wean O2 as Tolerated Chest tube site sutures may be anytime after Sunday, DISCHARGE DISPOSTION 1) Discharge to [facility] ( [facility]) 2) Diet: Healthy Heart 3) Activity: Light ( no lifting greater than 10 lbs; no pushing or pulling; do driving for 2 months) 4) Presently on O2 4 liters NC ( wean as tolerated to maintain O2 sat of 90% or greater) 5) Cardiac Rehab: [facility] 6) Discharge Follow Up ESVIN BUTTS - 09/24/2018 01:15 MARTINEZ CANSECO (REF) E - Within 1 week after discharge from Rehab KEYUR TRUJILLO - 09/30/2018 02:20 [facility] - Within 6 weeks 7) Discharge Medications (12) Active amiodarone 200 mg oral tablet 400 mg = 2 Tab, Oral, BID for 7 days, then 200mg BID for 7 days, then 200mg daily aspirin 81 mg oral delayed release tablet 81 mg = 1 Tab, Oral, Daily DuoNeb 0.5 mg-2.5 mg/3 mL inhalation solution 3 mL, PRN, Nebulized Inhalation, RT_Q4H DuoNeb 0.5 mg-2.5 mg/3 mL inhalation solution 3 mL, Nebulized Inhalation, RT_Q6H Lasix 20 mg oral tablet , Oral, Daily Lipitor 20 mg oral tablet 20 mg = 1 Tab, Oral, At Bedtime Metoprolol Tartrate 25 mg oral tablet 12.5 mg = 0.5 Tab, Oral, BID Mucinex 600 mg oral tablet, extended release 1,200 mg = 2 Tab, Oral, Daily Percocet 5/325 oral tablet 1 Tab, PRN, Oral, Q4H Plavix 75 mg oral tablet 75 mg = 1 Tab, Oral, Daily Senokot 8.6 mg oral tablet 17.2 mg = 2 Tab, Oral, At Bedtime Xanax 0.25 mg oral tablet , PRN, Oral, TID Above Fax'd to Drs. Khoury and Harleen Electronically signed by [facility] Conversion Appraisal Technician Cerner at 07/05/2022 8:29 PM CDT documented in this encounter Plan of Treatment Upcoming Encounters Date Type Department Care Team (Late st Contact Info) Description 10/27/2024 10:[address] [facility] 1 [place] [address] Adalberto Painting MD [address] [place] [address] [address] [place] [address] 10/29/2024 10:30 AM EDT Audio - Telemedicine [facility] [address] [place] [address] [place] [address] Adalberto Painting MD [address] [place] [address] [address] [place] [address] documented as of this encounter Visit Diagnoses Not on filedocumented in this encounter Care Teams Life Tester Outboard Motors Relationship Specialty Start Date End Date Martinez Canseco MD [address] [place] [address] PCP - General Family Medicine 10/05/22 documented as of this encounter
--- OUTSIDE RECORDS SUMMARY | 2024-10-14 15:50 | XMS_ITS | Encounter Summary ---
Author Organization [employer] ([place], [place], [place], [place]) Address [address] [place] [address] Care Team Providers Care Chainstitch Binder Name Role Phone Martinez Canseco MD Primary Care Provider [phone] Encounter Details Date Type Department Care Team (Late st Contact Info) Description 09/09/2018 Transcribed Document [facility] [place] Family Medicine [address] [place] [address] ProviderIvan MD [address] [place] [address] Social History Tobacco Use Types [...] Note - Ivan ProviderMD - 09/09/2018 5:00 PM CDT Chart Check - Review Order Profile Entered On: 09/09/2018 18:46 EDT Performed On: 09/09/2018 17:00 EDT by Nohemy Giraldo, Rn Chart Check Powerplans Initiated/Discontinued as Appropriate : Yes All Active Orders Reviewed : Yes Nohemy Giraldo, Rn - 09/09/2018 18:46 EDT Electronically signed by Destiny [facility] Conversion [employer] Intern[employer] Cerner at 07/05/2022 8:48 PM CDT documented in this encounter Plan of Treatment Upcoming Encounters Date Type Department Care Team (Late st Contact Info) Description 10/27/2024 10:00 AM EDT Appointment [facility] MRI 1 [place] [phone] Adalberto Painting MD [address] [facility] [address] [place] [address] 10/29/2024 10:30 AM EDT Audio - Telemedicine [facility] [address] [place] [address] [address] [place] [phone] Adalberto Painting MD [address] [facility] [address] [place] [address] documented as of this encounter Visit Diagnoses Not on filedocumented in this encounter Care Teams Chainstitch Binder Relationship Specialty Start Date End Date Martinez Canseco MD [address] [place] [address] PCP - General Family Medicine 10/05/22 documented as of this encounter
--- OUTSIDE RECORDS SUMMARY | 2024-10-14 15:50 | XMS_ITS | Encounter Summary ---
Author Organization [employer] ([place], [place], [place], [place]) Address [address] [place] [address] Care Team Providers Care Magazine Writer Name Role Phone Martinez Canseco MD Primary Care Provider [phone] Encounter Details Date Type Department Care Team (Late st Contact Info) Description 09/13/2018 Transcribed Document [facility] [place] [address] [place] [address] ProviderIvan MD [address] [place], [place] [address] Social History Tobacco Use Types Packs/Day Years Used Date Smoking Tobacco: Never Assessed Sex and Gender Information Value Date Recorded Sex Assigned at Male 09/13/2021 8:33 PM CDT Legal Sex Male 8:33 PM CDT Gender Identity Male 09/13/2021 8:33 PM CDT Sexual Orientation Not on file documented as of this encounter Miscellaneous Notes * [employer] Conversion Note - Ivan Nino MD - 09/13/2018 12:22 PM CDT Nursing Discharge Summary Entered On: 09/13/2018 12:23 EDT Performed On: 09/13/2018 12:22 EDT by Nury Bruce RN Discharge Documentation Patient Disposition, General : Discharge Discharge To : Rehabilitation unit/facility Mode Of Departure, General Discharge : Private vehicle Accompanied By, Discharge : Sibling IV Discontinued : Yes Medications Given to Patient : No Personal Belongings With Patient : Yes Pt's Own Supply of Medications Returned : No Prescriptions Given to Patient : Other: Placed in packet to facility Nury Bruce RN - 09/13/2018 12:22 EDT documented in this encounter Plan of Treatment Upcoming Encounters Date Type Department Care Team (Late st Contact Info) Description 10/27/2024 10:00 AM EDT Appointment [facility] MRI 1 [place] [address] [place] [address] [place] [address] [address] [place] [address] 10/29/2024 10:30 AM EDT Audio - Telemedicine [facility] [address] [facility] [address] [place] [address] Adalberto Painting MD [address] [facility] [address] [place] [address] documented as of this encounter Visit Diagnoses Not on filedocumented in this encounter Care Teams Magazine Writer Relationship Specialty Start Date End Date Martinez Canseco MD [address] [place] [address] PCP - General Family Medicine 10/05/22 documented as of this encounter
--- OUTSIDE RECORDS SUMMARY | 2024-10-14 15:50 | XMS_ITS | Encounter Summary ---
Author Organization [employer] ([place], [place], [place], [place]) Address [address] [facility] [place] [address] Care Team Providers Care Contour Stitcher Name Role Phone Martinez Canseco MD Primary Care Provider [phone] Encounter Details Date Type Department Care Team (Late st Contact Info) Description 09/11/2018 Transcribed Document [facility] [place] [address] [place] [address] ProviderIvan MD [address] [place], [place] [id number] Social History Tobacco Use Types Packs/Day Years Used Date Smoking Tobacco: Never Assessed Sex and Gender Information Value Date Recorded Sex Assigned at Male 09/13/2021 8:33 PM CDT Legal Sex Male 8:33 PM CDT Gender Identity Male 09/13/2021 8:33 PM CDT Sexual Orientation Not on file documented as of this encounter Miscellaneous Notes * Cerner Conversion Note - Ivan Nino MD - 09/11/2018 10:10 AM CDT Patient: AUGUSTO PACHECO Age: 67 years Sex: Male : 1950 Associated Diagnoses: Unstable angina; Recent Pneumonia; Alcohol use 3 beers daily; Severe mitral regurgitation; Nicotine dependence with withdrawal; HLD (hyperlipidemia); HTN (hypertension); Diverticulitis with history of colostomy and recent colostomy reversal; Severe COPD and emphysematous lungs; CAD (coronary artery disease), [place] coronary artery Author: LEANDER WHEELER PA Basic Information Mr. [...] has not been on any blood thinners. POD#7 S/P Mitral valve repair using a 30 [...] per Dr. Garvey, breathing improved following bronch Review of Systems Respiratory: Sputum production, No shortness of breath. Cardiovascular: No chest pain. Gastrointestinal: Nausea (improving). Neurologic: Alert and oriented X4. Health Status Allergies: Allergic Reactions (Selected) No Known Allergies Objective VS/Measurements Vital Measurements 09/11/2018 10:02 EDT Heart Rate Monitored 110 bpm HI Oxygen Therapy Mode BiPAP FiO2 40 % 09/11/2018 9:40 EDT Systolic Blood Pressure 97 mmHg Diastolic Blood Pressure 62 mmHg Oxygen Saturation 90 % LOW General: Alert and oriented, No acute distress. Respiratory: Lungs are clear to auscultation, Respirations are non-labored, Breath sounds are equal. Cardiovascular: 107 beats per minute, Regular rhythm, S1, S2, Tachycardia, No edema. Gastrointestinal: Soft, Non-tender, Non-distended, Normal bowel sounds. Integumentary: Warm, Dry, [place], Aquacel dressing is C/D/I. Neurologic: Alert, Oriented, No focal deficits. Psychiatric: Mood and affect: Calm. Review / Management Results review: SEP 11 04:35 146 106 H 31 / H 116 3.6 H 37 0.90 \ SEP 11 04:35 \ L 10.1 / H 9.9 327 / L 30.4 \. Radiology results Radiology Results (Last 48 hours) [id number] -- 09/02/2018 14:21 CR Chest 1 Vw [...] Dr. Andrea Porter.Transcribed by Wai Vazquez PA-C, RLexyTLexy (N), C N M T.I have personally viewed, interpreted and dictated the examination. Ihave read and agree with the above final transcribed report. CTA Chest PE Protocol (09/10/2018 17:15) Result: CT ANGIOGRAM THORAXHISTORY: Hypoxia. Shortness of breath.TECHNIQUE: Thin section axial CT with IV contrast supplemented [id number] MIP images. FINDINGS: Pulmonary vessels enhance in [...] by Wai Vazquez PA-C, R.T. (N), C Wade Trevizo T.I have personally viewed, interpreted and [...] tolerated 09/08: POD # 4 Transfer to [facility] 09/09: POD #5 Nausea improving Hypotension - hold BB and lisinopril Cr worse today 1.2 (from0.9) - suspected hypoperfusion 09/10: POD # 6 Nausea better today, still decreased appetite Family would like discharge to rehab to [facility] in [facility] - precert initiated Cr improved [...] 20 meq today To rehab 24-48 hr EF 40% per echo 09/04/18 DVT Prophylaxis: [...] Pre-Op Diagnosis, Medical. CAD (coronary artery disease), [place] coronary artery - Admitting, Medical. CAD (coronary artery disease), [place] coronary artery - Discharge, Medical. Electronically signed by Interface, [facility] Conversion Truss Builder Cerner at 07/05/2022 8:34 PM CDT documented in this encounter Plan of Treatment Upcoming Encounters Date Type Department Care Team (Late st Contact Info) Description 10/27/2024 10:00 AM EDT Appointment [facility] [address] [place] [id number] Adalberto Painting MD [address] [place] [address] 10/29/2024 10:30 AM EDT Audio - Telemedicine [facility] [address] [facility] [address] [place] [phone] Adalberto Painting MD [address] [facility] [address] [place] [phone] documented as of this encounter Visit Diagnoses Not on filedocumented in this encounter Care Teams Contour Stitcher Relationship Specialty Start Date End Date Martinez Canseco MD [address] [place] [address] PCP - General Family Medicine 10/05/22 documented as of this encounter
--- OUTSIDE RECORDS SUMMARY | 2024-10-14 15:50 | XMS_ITS | Encounter Summary ---
Author Organization [employer] ([place], [place], [place], [place]) Address [address] [place] [address] Care Team Providers Care Boring Machine Operator Horizontal Name Role Phone Martinez Canseco MD Primary Care Provider [phone] Encounter Details Date Type Department Care Team (Late st Contact Info) Description 09/07/2018 Transcribed Document [facility] [place] Family Medicine [address] [place] [address] ProviderIvan MD [address] [place], [place] [id number] Social History Tobacco Use Types Packs/Day Years Used Date Smoking Tobacco: Never Assessed Sex and Gender Information Value Date Recorded Sex Assigned at Male 09/13/2021 8:33 PM CDT Legal Sex Male 8:33 PM CDT Gender Identity Male 09/13/2021 8:33 PM CDT Sexual Orientation Not on file documented as of this encounter Miscellaneous Notes * Cerner Conversion Note - Ivan ProviderMD - 09/07/2018 2:00 AM CDT [place] Details Entered On: 09/07/2018 4:46 EDT Performed On: 09/07/2018 2:00 EDT by CHUCHO RESTREPO RN Order Details Transport Mode Order Detail : Portable Isolation Precautions Order Detail : Standard Precautions Order Detail : N/A IV Order Detail : 1 Oxygen Order Detail : 1 Lift/Transfer : Moderate assist Central Line Order Detail : Yes Room Service : Appropriate Arterial Line : No CHUCHO RESTREPO RN - 09/07/2018 4:46 EDT Electronically signed by Destiny [facility] Conversion Viner Operator Cerner at 07/05/2022 8:32 PM CDT documented in this encounter Plan of Treatment Upcoming Encounters Date Type Department Care Team (Late st Contact Info) Description 10/27/2024 10:[address] [facility] 1 [place] [address] [place] [address] [place] [address] [address] [place] [address] 10/29/2024 10:30 AM EDT Audio - Telemedicine [facility] [address] [place] [address] [address] [place] [address] [place] [address] [place] [address] [address] [place] [address] [phone] documented as of this encounter Visit Diagnoses Not on filedocumented in this encounter Care Teams Boring Machine Operator Horizontal Relationship Specialty Start Date End Date Martinez Canseco MD [address] [place] [address] PCP - General Family Medicine 10/05/22 documented as of this encounter
--- OUTSIDE RECORDS SUMMARY | 2024-10-14 15:50 | XMS_ITS | Encounter Summary ---
Author Organization [employer] ([place], [place], [place], [place]) Address [address] [place] [address] Care Team Providers Care Roll Bucker Name Role Phone Martinez Canseco MD Primary Care Provider [phone] Encounter Details Date Type Department Care Team (Late st Contact Info) Description 09/11/2018 Transcribed Document [facility] [place] Family Medicine [address] [place] [address] ProviderIvan MD [address] [place] [address] Social History Tobacco Use Types [...] Conversion Note - Ivan ProviderMD - 09/11/2018 5:00 PM CDT Chart Check - Review Order Profile Entered On: 09/11/2018 15:42 EDT Performed On: 09/11/2018 17:00 EDT by Hope Troy, RN Chart Check Powerplans Initiated/Discontinued as Appropriate : Yes All Active Orders Reviewed : Yes Hope Troy, RN - 09/11/2018 15:41 EDT Electronically signed by Destiny [facility] Conversion Dog Handler Cerner at 07/05/2022 8:32 PM CDT documented in this encounter Plan of Treatment Upcoming Encounters Date Type Department Care Team (Late st Contact Info) Description 10/27/2024 10:00 AM EDT Appointment [facility] 1 [place] [address] Adalberto Painting MD [address] [facility] [address] [place] [phone] 10/29/2024 10:30 AM EDT Audio - Telemedicine [facility] [address] [place] [address] [address] [place] [address] Adalberto Painting MD [address] [facility] [address] [place] [address] [phone] documented as of this encounter Visit Diagnoses Not on filedocumented in this encounter Care Teams Roll Bucker Relationship Specialty Start Date End Date Martinez Canseco MD [address] [place] [address] PCP - General Family Medicine 10/05/22 documented as of this encounter
--- OUTSIDE RECORDS SUMMARY | 2024-10-14 15:50 | XMS_ITS | Encounter Summary ---
Author Organization [employer] ([place], [place], [place], [place]) Address [address] [place] [address] Care Team Providers Care Basketball Scout Name Role Phone Martinez Canseco MD Primary Care Provider [phone] Encounter Details Date Type Department Care Team (Late st Contact Info) Description 09/08/2018 Transcribed Document [facility] [place] [address] [place] [address] ProviderIvan MD [address] [place] [address] Social History Tobacco Use Types [...] Conversion Note - Ivan Nino MD - 09/08/2018 9:53 AM CDT Patient: AUGUSTO PACHECO Age: 67 years Sex: Male : 1950 Associated Diagnoses: None Author: ESVIN BUTTS MD-CAT Basic Information POD: 4 Present at bedside: Medical personnel. Health Status Allergies: Allergic Reactions (All) No Known Allergies Physical Examination Intake and Output I/O: 134 / 2855 Urine Output: 650 ml / 12 hrs VS/Measurements Vitals Signs (last 24 hrs) Last Charted Minimum Maximum Apical HR H 105 (SEP 08 08:14) H 105 (SEP 08 08:14) H 107 (SEP 07 20:34) Mon HR 104 (SEP 08 09:00) 85 (SEP 07 10:14) 111 (SEP 07 19:00) Resp Rate 17 (SEP 08 05:30) 17 (SEP 08 05:30) 18 (SEP 07 23:58) SBP H 160 (SEP 08 09:00) 116 (SEP 07 16:00) H 180 (SEP 08 07:00) DBP 85 (SEP 08 09:00) L 58 (SEP 07 14:00) H 93 (SEP 08 06:00) MAP 115 (SEP 08 09:00) 83 (SEP 07 10:00) 126 (SEP 08 01:00) SpO2 L 90 (SEP 08 09:00) L 90 (SEP 07 16:00) 98 (SEP 08 00:00) General: Alert and oriented, No acute distress. Neck: Supple, No jugular venous distention. Respiratory: Lungs are clear to auscultation. Cardiovascular: Normal rate, Regular rhythm. Gastrointestinal: Soft, Non-tender. Musculoskeletal: Lower extremity exam: warm.. Integumentary: Warm, Dry, Sternal Wound: Clean/Dry/intact. Neurologic: Alert, Oriented. Psychiatric: Cooperative, Appropriate mood & affect. Review / Management Results review: SEP 08 03:54 141 103 H 29 / H 124 3.7 31 0.90 \ SEP 08 03:54 \ L 10.1 / H 12.8 184 / L 30.0 \. Impression and Plan S/P CABG, MVV Plan: Doing well. off epi. ok to transfer to tele. Remove Cordis. Electronically signed by Ki Dixon Conversion Explosive Ordnance Disposal Specialist Cerner at 07/05/2022 8:37 PM CDT documented in this encounter Plan of Treatment Upcoming Encounters Date Type Department Care Team (Late st Contact Info) Description 10/27/2024 10:00 AM EDT Appointment [facility] 1 [place] [address] Adalberto Painting MD [address] [place] [address] [address] [place] [address] 10/29/2024 10:30 AM EDT Audio - Telemedicine [facility] [address] [facility] [address] [place] [address] Adalberto Painting MD [address] [facility] [address] [place], [place] [phone] documented as of this encounter Visit Diagnoses Not on filedocumented in this encounter Care Teams Basketball Scout Relationship Specialty Start Date End Date Martinez Canseco MD [address] [place] [address] PCP - General Family Medicine 10/05/22 documented as of this encounter
--- OUTSIDE RECORDS SUMMARY | 2024-10-14 15:50 | XMS_ITS | Encounter Summary ---
Author Organization [facility] ([place], [place], [place], [place]) Address [address] [place] [address] Care Team Providers Care Welder Railcar Mechanic Name Role Phone Martinez Gutierrez MD Primary Care Provider [phone] Encounter Details Date Type Department Care Team (Late st Contact Info) Description 09/13/2018 Transcribed Document [facility] [place] [facility] [address] [place] [address] ProviderIvan MD [address] [place] [address] Social History Tobacco Use [...] Note - Ivan Nino MD - 09/13/2018 12:27 PM CD[place] [address] TARAIZABELLA MENA :1950 Visit Time:09/02/2018 Your Visit Summary Your Care Team Admitting Physician - ESVIN BUTTS MD-CAT Attending Physician - ESVIN BUTTS MD-CAT Primary Care Physician - YUMI, UNKNOWN Referring Physician - YUMI, UNKNOWN Your Diagnosis Alcohol use 3 beers daily Atherosclerotic heart disease of [place] coronary artery without angina pectoris, Atherosclerotic heart disease of [place] coronary artery without angina pectoris, CAD (coronary artery disease), [place] coronary artery, CAD (coronary artery disease), [place] coronary artery Diverticulitis with history of colostomy and recent colostomy reversal HLD (hyperlipidemia) HTN (hypertension) Nicotine dependence with withdrawal Recent Pneumonia Severe COPD and emphysematous lungs Severe mitral regurgitation, Severe mitral regurgitation Unstable angina Discharge Vitals Temperature 36.3 ??C Heart Rate (Monitored) 109 Respiratory Rate 18 Blood Pressure 94/62 What to do next Instructions From Your Care Team Rehabilitation: [facility] Nurse can Call report to [phone] Discharge Summary: fax to [phone] Transportation: Brother will transport [facility] to deliver portable O2 tank for transport. Discharge Activity: no pushing or pulling, Discharge Activity: No heavy lifting over 10 lbs Diet: Discharge Diet: Heart healthy diet Showering/Bathing Instructions: May shower Driving Restriction: Do Not Drive for 2 months Follow-Up Appointments Follow Up with KEYUR TRUJILLO When 09/30/2018 02:20 AM EDT Comments Appointment has been made Where: [address] [place] [address]- [phone] Follow Up with ESVIN BUTTS When 09/24/2018 01:15 AM EDT Comments Appointment has been made Where: [address] [place] [address]- Business (1) Follow Up with MARTINEZ GUTIERREZ (KRIS) Viri When Within 1 week Comments after discharge from Rehab Where: [address] [place] [address]- , Follow Up with [facility] Cardiac Rehab When Within 6 weeks Comments Office to call with appoint/instructions Where: [phone] Medications What How Much When Instructions Next Dose acetaminophen-oxyCODONE (Percocet 5/ 325 oral tablet) 1 Tablet(s) Oral Every 4 Hours as needed for Pain (Moderate 4-6) albuterol-ipratropium (DuoNeb 0.5 mg-2.5 mg/ 3 mL inhalation solution) 3 Milliliter(s) Nebulized Inhalation Every 4 Hours as needed for Shortness of Breath albuterol-ipratropium (DuoNeb 0.5 mg-2.5 mg/ 3 mL inhalation solution) 3 Milliliter(s) Nebulized Inhalation Every 6 Hours amiodarone (amiodarone 200 mg oral tablet) 2 Tablet(s) Oral Two Times A Day for 7 days then one tab BID for 7 days, then one tab daily atorvastatin (Lipitor 20 mg oral tablet) 1 Tablet(s) Oral At Bedtime clopidogrel (Plavix 75 mg oral tablet) 1 Tablet(s) Oral Every Day guaiFENesin (Mucinex 600 mg oral tablet, extended release) 2 Tablet(s) Oral Every Day senna (Senokot 8.6 mg oral tablet) 2 Tablet(s) Oral At Bedtime furosemide (Lasix 20 mg oral tablet) Oral Every Day metoprolol (Metoprolol Tartrate 25 mg oral tablet) 0.5 Tablet(s) Oral Two Times A Day ALPRAZolam (Xanax 0.25 mg oral tablet) Oral Three Times A Day as needed for as needed for anxiety aspirin (aspirin 81 mg oral delayed release tablet) 1 Tablet(s) Oral Every Day Take your medications faithfully. Do NOT skip medication. Do NOT stop taking medications without the direction of a physician. Carry a list of your medications with you at all times, and take this medication list with you to your first follow up visit. Report any side effects. Avoid herbal remedies unless discussed with your physician. As part of your treatment plan, your physician may have prescribed a limited course of a controlled substance. This medication may be given to help people with moderate or severe pain or for other medical conditions, but there are risks involved with treatment. Common side effects may include nausea, constipation, drowsiness, sweating, itching, dry mouth, and rash. More serious side effects may include cognitive and motor impairment, like problems with thinking, concentrating, alertness, and movement (e.g. slowed reflexes), and driving and operating heavy machinery can be dangerous. It is important for you to talk to your physician if you have these side effects or questions. These controlled substances can produce physical dependence and be habit-forming if taken for an extended period of time, which means that the body has gotten used to them and may experience withdrawal symptoms if they are abruptly stopped. Withdrawal symptoms can include runny nose, sweating, goose bumps, diarrhea, abdominal cramping, rapid heartbeat, difficulty sleeping, and nervousness. Please dispose of unused and medications per your retail pharmacy guidance. Allergies No Known Allergies Immunizations This Visit No Immunizations Found Education Materials Home Oxygen Use, Adult When a medical [...] twice a week. ??? Replace it every 2???4 weeks. ??? If you have an infection, such as a cold or pneumonia, change the cannula when you get better. Mask ??? Replace it every 2???4 weeks. ??? If you have an infection, [...] equipment ??? Change any extra tubing every 1???3 months. ??? Follow instructions from your health [...] use an oxygen concentrator: ? Tell your [employer]. Make sure you are given priority service [...] 05/25/2004 Document Revised: 11/01/2016 Document Reviewed: 09/26/2016 [employer] Interactive Patient Education ?? 2019 [employer]. Incentive Spirometer An incentive spirometer is a [...] the column. 6. Hold your breath for 3???5 seconds or for as long as possible. [...] repeat this at least 10 times, every 1???2 hours when you are awake. Take your [...] 07/16/2007 Document Revised: 11/27/2016 Document Reviewed: 10/12/2014 [employer] Interactive Patient Education ?? 2018 [employer]. Hypertension Hypertension is another name for high [...] of beer, 5 oz of wine, or 1?? oz of hard liquor. Lifestyle ??? Work [...] doctor. This is important. Medicines ??? Take [id number]-[id number] and prescription medicines only as told by [...] 08/21/2008 Document Revised: 01/31/2017 Document Reviewed: 01/31/2017 [employer] Interactive Patient Education ?? 2019 [employer]. Heart-Healthy Eating Plan Many factors influence your [...] plate with vegetables and green salads. Eat 4???5 servings of vegetables per day. A serving of vegetables equals 1 cup of raw leafy vegetables, ?? cup of raw or cooked cut-up vegetables, or ?? cup of vegetable juice. ??? Fill one fourth of your plate with whole grains. Look for the word whole as the first word in the ingredient list. ??? Fill one fourth of your plate with lean protein foods. ??? Eat 4???5 servings of fruit per day. A serving of fruit equals one medium whole fruit, ?? cup of dried fruit, ?? cup of fresh, frozen, or canned fruit, or ?? cup of 100% fruit juice. ??? Eat more foods that contain soluble fiber. Examples of foods that contain this type of fiber are apples, broccoli, carrots, beans, peas, and barley. Aim to get 20???30 g of fiber per day. ??? Eat [...] weight if you are overweight. Losing just 5???10% of your initial body weight can help your overall health and prevent diseases such as diabetes and heart disease. ??? Increase your consumption of nuts, legumes, and seeds to 4???5 servings per week. One serving of dried beans or legumes equals ?? cup after being cooked, one serving of nuts equals 1?? ounces, and one serving of seeds equals ?? ounce or 1 tablespoon. ??? You may need to monitor your salt (sodium) intake, especially if you have high blood pressure. Talk with your health care provider or dietitian to get more information about reducing sodium. What foods can I eat? Grains Breads, including Luxembourgish, white, carolyn, wheat, raisin, rye, oatmeal, and Greenlandic. Tortillas that are neither fried nor made with lard or trans fat. Low-fat rolls, including hotdog and hamburger buns and Faroese muffins. Biscuits. Muffins. Waffles. Pancakes. Light popcorn. Whole-grain cereals. Flatbread. [place] toast. Pretzels. Breadsticks. Rusks. Low-fat snacks and [...] egg substitutes. Dried beans, peas, lentils, and tofu. Seeds and most nuts. Dairy Low-fat or nonfat [...] cooking, baking, salads, and as spreads. Other Freeman powder. Coffee and tea. All seasonings and [...] cheese. Whole milk cheeses, including blue (shawnee), Hartley Benito, Brie, Mark, Brazilian, Havarti, Kazakh, cheddar, Camembert, and Brant. Whole or 2% milk that is liquid, [...] that has suet, meat fat, or shortening. Freeman butter, hydrogenated oils, palm oil, coconut oil, [...] 12/12/2008 Document Revised: 09/22/2016 Document Reviewed: 08/27/2014 [employer] Interactive Patient Education ?? 2019 [employer]. Coronary Artery Bypass Grafting, Care After This sheet gives you information about how to care for yourself after your procedure. Your doctor may also give you more specific instructions. If you have problems or questions, contact your doctor. Follow these instructions at home: Medicines ??? Take wziv-osg-ejqhdnf and prescription medicines only as told by [...] cannot use soap and water, use hand domestic violence advocate. ? Change your dressing as told by [...] of beer, 5 oz of wine, or 1?? oz of hard liquor. Activity ??? Rest [...] help quitting, ask your doctor. ??? Take 2???3 deep breaths every few hours during the [...] 03/10/2014 Document Revised: 04/17/2017 Document Reviewed: 04/17/2017 [employer] Interactive Patient Education ?? 2019 [employer] Emergency Awareness and Preventative Care STROKE is an EMERGENCY Every Minute Counts Act FAST and Check for these signs: FACE Does the face look uneven? ARM Does one arm drift down? SPEECH Does their speech sound strange? TIME Call at any sign of stroke Stroke Risk Factors Atrial Fibrillation (irregular heartbeat) Diabetes Family history of stroke Heart Disease Heavy alcohol use High Blood Pressure High Cholesterol Physical inactivity and obesity Smoking Cigarette Smoking The facts are clear, cigarette smoking will shorten your life. Smoking can cause many illnesses along the way. As a healthcare provider, we recommend that you stop smoking. Assistance with quitting is available by contacting 7-246-PQDW-NOW. This is a free resource providing counseling, support, and referral. Or you may contact your personal physician. [employer] Suicide Prevention Lifeline: The National Suicide Prevention Lifeline is a national network of local crisis centers that provides free and confidential emotional support to people in suicidal crisis or emotional distress 24 hours a day, 7 days a week. Don't Wait! Stop a Heart Attack Before it Starts What is a heart attack? A heart attack is damage or to a part of the heart from severely decreased or lack of blood flow to the heart. Over time, arteries can become narrow from the buildup of fat and cholesterol, which is called plaque. The plaque can rupture causing a blood clot to form. When the blood clot forms, the artery can become severely narrowed or completely blocked, causing a heart attack. Heart attack is the leading cause of in the [place]. 85% of muscle damage occurs within the first 2 hours. Delay in the recognition of heart attack symptoms increases the chances of . Know the early symptoms of a heart attack: Nausea Feeling of fullness in chest Jaw Pain Pain that travels down one or both arms Fatigue/being tired Anxiety Back Pain Chest pressure, squeezing, or discomfort Shortness of breath Sweating, or a cold sweat Feeling of impending doom There are unusual signs of a heart attack, too! Women, the elderly, and diabetics may present with atypical symptoms: Fainting/dizziness Weakness Confusion Risk Factors for a Heart Attack Some heart disease risk factors, such as age and family history, cannot be changed. Others, like smoking and lack of exercise, can be changed. Smoking High Cholesterol High Blood Pressure Family History Obesity Age Gender (Males are at higher risk) Lack of Exercise Diabetes Diet Stress Excessive Alcohol Intake If you or someone you know is experiencing the signs and symptoms of a heart attack, DON???T DELAY. Call immediately and seek help. If someone collapses, perform CPR! Do not attempt to drive if you are having symptoms of heart attack. Hands-Only CPR Why Hands-Only CPR? Hands-Only CPR has been shown to be as effective as conventional CPR for cardiac arrests that occur outside of a hospital. Survival depends on immediately receiving CPR from someone nearby. How do you perform Hands-Only CPR? There are two easy steps: Call if you see a teen or adult collapse Push hard and fast in the center of the chest at a beat of 100 beats per minute. Save a life! 4 WAYS TO GET AHEAD OF SEPSIS SEPSIS is a MEDICAL EMERGENCY. Time matters! Infections put you and your family at risk for a life-threatening condition called sepsis. Sepsis is the body's extreme response to an infection. It is life-threatening, and without timely treatment, sepsis can rapidly lead to tissue damage, organ failure, and . Sepsis happens when an infection you already have-in your skin, lungs, urinary tract or somewhere else-triggers a chain reaction throughout your body. 1 PREVENT INFECTIONS Take good care of chronic conditions. Talk to your doctor about getting the recommended vaccines. 2 PRACTICE GOOD HYGIENE Wash your hands frequently. Keep cuts or open sores clean and covered until they are healed. 3 KNOW THE SYMPTOMS Confusion or disorientation Shortness of breath High heart rate Fever, shivering, or feeling very cold Extreme pain or discomfort Clammy or sweaty skin 4 ACT FAST Get medical care IMMEDIATELY if you suspect sepsis or if you have an infection that is not getting better or is getting worse. To learn more about sepsis and how to prevent infections, visit www.cdc.gov/sepsis. Test Results Laboratory or Other Results This Visit (last charted value for your 09/02/2018 visit) Blood Gases 09/10/18 13:26:00 HCO3 Art: 35.4 mmol/L -- Normal range between ( 20.0 and 26.0 ) sO2 Art: 89.7 % -- Normal range between ( 95.0 and 100.0 ) pCO2 Art: 41.8 mmHg -- Normal range between ( 35.0 and 45.0 ) pH Art: 7.54 -- Normal range between ( 7.35 and 7.45 ) pO2 Art: 54.6 mmHg -- Normal range between ( 80.0 and 100.0 ) ABG Num of Draw Attempts: 1 Acceptable Ronnell's Test Art: Acceptable BE Art: 11.7 mmol/L Oxygen Flow Rate Art: 8.0 Liter Delivery Device Type Art: HFNC tHb Art: 10.4 Gram/dL -- Normal range between ( 12.0 and 18.0 ) Ventilator Mode Art: N/A Temperature, F Art: 98.6 Deg F ctO2: 12.8 mmol/L FHHb: 10.1 % Art Blood Gas (ABG) Site: Left Radial 09/06/18 11:50:00 FIO2 Art: 50 Pressure Support Art: 8.0 cmH2O Respiratory Rate Art: 12.0 CPAP/PEEP Art: 5.0 cmH2O 09/06/18 03:09:00 Set Rate Art: 23.0 Tidal Volume Set Art: 510.0 mL 09/04/18 22:08:00 pO2 Art POC: 86.0 mmHg -- Normal range between ( 80.0 and 105.0 ) BE Art POC: -3.0 mmol/L HCO3 Art POC: 24.1 mmol/L -- Normal range between ( 22.0 and 26.0 ) pH Art POC: 7.280 -- Normal range between ( 7.350 and 7.450 ) sO2 Art POC: 95.0 % -- Normal range between ( 95.0 and 98.0 ) tCO2 Art POC: 26.0 mmol/L -- Normal range between ( 23.0 and 27.0 ) pCO2 Art POC: 52.0 mmHg -- Normal range between ( 35.0 and 45.0 ) Hematology 09/13/18 04:10:00 WBC: 10.3 K/uL -- Normal range between ( 3.6 and 9.5 ) RBC: 2.91 Million/uL -- Normal range between ( 4.20 and 5.70 ) Hct: 27.8 % -- Normal range between ( 40.1 and 51.0 ) Hgb: 9.4 g/dL -- Normal range between ( 13.5 and 17.3 ) Platelet Count: 370 K/uL -- Normal range between ( 163 and 369 ) MCH: 32.3 pg -- Normal range between ( 25.6 and 32.2 ) MCHC: 33.8 Gram/dL -- Normal range between ( 32.2 and 36.5 ) MCV: 95.5 fL -- Normal range between ( 79.0 and 94.8 ) Slide Review: No RDW: 13.2 % -- Normal range between ( 11.7 and 14.9 ) MPV: 9.3 fL -- Normal range between ( 9.4 and 12.4 ) 09/07/18 04:11:00 Eos %: 0.2 % -- Normal range between ( 0.0 and 7.0 ) Cherokee #: 0.72 K/uL -- Normal range between ( 0.16 and 1.00 ) Eos #: 0.02 x10(3)/uL -- Normal range between ( 0.00 and 0.80 ) [place] %: 6.9 % -- Normal range between ( 3.0 and 9.0 ) Baso %: 0.1 % -- Normal range between ( 0.0 and 1.5 ) Baso #: 0.01 x10(3)/uL -- Normal range between ( 0.00 and 0.20 ) Neut %: 87.3 % -- Normal range between ( 34.0 and 71.0 ) Neut #: 9.16 K/uL -- Normal range between ( 1.56 and 6.13 ) Lymph %: 4.9 % -- Normal range between ( 19.3 and 53.1 ) Lymph #: 0.51 x10(3)/uL -- Normal range between ( 1.00 and 3.90 ) IG#: 0.06 x10(3)/uL -- Normal range between ( 0.00 and 0.05 ) IG%: 0.60 % -- Normal range between ( 0.00 and 0.60 ) nRBC: 0.020 -- Normal range between ( 0.000 and 0.012 ) 09/04/18 22:08:00 Hemoglobin POC: 9.9 Gram/dL -- Normal range between ( 12.0 and 17.0 ) Hematocrit POC: 29.0 % -- Normal range between ( 38.0 and 51.0 ) 09/03/18 03:25:00 ALYC #: 2 K/uL RBC Morphology: Normal ANC #: 6 K/uL Cherokee Percent Man: 8 % -- Normal range between ( 4 and 5 ) Baso Percent Man: 0 % -- Normal range between ( 0 and 1 ) Neutrophil Percent Man: 72 % -- Normal range between ( 50 and 65 ) Eos Percent Man: 1 % -- Normal range between ( 0 and 3 ) Platelet Ct Estimate: Adequate Lymph Percent Man: 19 % -- Normal range between ( 24 and 44 ) Microbiology 09/11/18 08:48:00 Culture Bronch Wash and Stain: See Result Specimen Source: RLL Micro Comments: sero sang 09/02/18 18:16:19 MRSA Surveillance: See Result Blood Bank 09/04/18 21:04:27 TRANSFUSED: TRANSFUSED 09/04/18 18:47:00 FFP Product Ready: FFP Ready Plt Product Ready: Platelet Ready # of Units: 2 09/04/18 18:15:00 Cryo Product Ready: Cryo Ready 09/03/18 20:25:00 ABO/Rh (ECHO): O NEG Antibody Screen (Tube): Negative ABSC Direct Antiglobulin Poly: Negative Crossmatch: Computer XM OK 09/03/18 20:05:00 RBC Product Ready: RBC Ready 09/03/18 03:25:00 ABO/Rh Repeat: O NEG General Chemistry 09/13/18 04:10:00 Creatinine Level: 1.00 mg/dL -- Normal range between ( 0.70 and 1.30 ) Sodium Level: 141 mmol/L -- Normal range between ( 136 and 146 ) Potassium Level: 3.4 mmol/L -- Normal range between ( 3.5 and 5.1 ) Chloride Level: 105 mmol/L -- Normal range between ( 102 and 112 ) Carbon Dioxide Level: 31 mmol/L -- Normal range between ( 21 and 32 ) Anion Gap: 8 -- Normal range between ( 9 and 20 ) Bun/Creatinine: 33.0 -- Normal range between ( 8.0 and 20.0 ) Calcium Level: 9.3 mg/dL -- Normal range between ( 8.4 and 10.1 ) eGFR : >60 mL/min/1.73m2 eGFR NonAfrican: >60 mL/min/1.73m2 Glucose Level: 103 mg/dL -- Normal range between ( 74 and 106 ) Blood Urea Nitrogen: 33 mg/dL -- Normal range between ( 7 and 22 ) 09/09/18 06:08:00 Glucose POC2: 115 mg/dL -- Normal range between ( 70 and 110 ) Device Comment 1: Device Comment 1 09/06/18 06:00:00 Device Comment 2: insulin Drip 09/06/18 03:59:00 Bilirubin Total: 0.4 mg/dL -- Normal range between ( 0.2 and 1.2 ) A/G Ratio: 1.1 -- Normal range between ( 1.1 and 2.5 ) ALT: 18 Units/Liter -- Normal range between ( 16 and 61 ) AST: 32 Units/Liter -- Normal range between ( 5 and 37 ) Globulin: 2.7 Gram/dL -- Normal range between ( 1.5 and 4.5 ) Alk Phos: 44 Units/Liter -- Normal range between ( 27 and 136 ) Calcium Ionized: 1.25 mmol/L -- Normal range between ( 1.12 and 1.32 ) Magnesium Level: 2.8 mg/dL -- Normal range between ( 1.5 and 2.4 ) Phosphorus: 3.0 mg/dL -- Normal range between ( 2.5 and 4.9 ) Protein Total: 5.8 Gram/dL -- Normal range between ( 6.4 and 8.2 ) Albumin Level: 3.1 Gram/dL -- Normal range between ( 3.4 and 5.0 ) 09/04/18 22:08:00 Sodium POC: 139 mmol/L -- Normal range between ( 138 and 146 ) Ca Ioniz POC: 1.17 mmol/L -- Normal range between ( 1.12 and 1.32 ) Potassium POC: 3.8 mmol/L -- Normal range between ( 3.5 and 4.9 ) Glucose POC: 120 mg/dL -- Normal range between ( 70 and 105 ) 09/04/18 12:54:00 Creatinine POC: 1.0 mg/dL -- Normal range between ( 0.6 and 1.3 ) 09/04/18 07:16:00 Hgb A1C: 5.7 % eAVG Glucose: 117 mg/dL Bilirubin Direct: 0.2 mg/dL -- Normal range between ( 0.0 and 0.2 ) Body Fluid 09/11/18 08:48:00 Body Fluid Type: BAL Fl Lymphocytes Body Fluid: 2 % Neutrophils Body Fluid: 86 % Color BF: Colorless Appearance BF: Cloudy UMCs Body Fluid: 11 % Monocytes Body Fluid: 1 WBC/Nucleated Cells BF: 1130 /uL RBC Count BF: 50 /uL Body Fluid Review for Pathologist: Body Fluid Review for Pathologist Coagulation 09/06/18 03:59:00 INR: 1.0 -- Normal range between ( 0.9 and 1.1 ) PT: 10.5 Second(s) -- Normal range between ( 9.6 and 12.0 ) 09/04/18 22:07:00 ACT POC: 120 Second(s) -- Normal range between ( 74 and 137 ) 09/03/18 20:25:00 PTT: 27.8 Second(s) -- Normal range between ( 22.0 and 32.0 ) Endocrinology 09/12/18 17:56:00 Procalcitonin: <0.25 ng/mL -- Normal range between ( 0.00 and 2.00 ) Computed Tomography 09/10/18 17:15:24 CTA Chest PE Protocol: CTA Chest PE Protocol Diagnostic Radiology 09/13/18 06:36:00 CR Chest 1 Vw Portable: CR Chest 1 Vw Portable Echo 09/04/18 21:44:39 Echocardiogram-Stress: Echocardiogram-Stress 09/03/18 09:51:09 EC JESUSITA Complete: EC JESUSITA Complete Vascular Ultrasound 09/10/18 16:37:40 VL Veins LE Duplex BILAT: VL Veins LE Duplex BILAT 09/02/18 16:08:59 VL Carotid Duplex BILAT: VL Carotid Duplex BILAT Patient Name:TARA IZABELLA I have received and understand this information and was given the opportunity to ask questions. Patient/Border Patrol Officer Name: Patient/Border Patrol Officer Signature: Relationship to Patient: Clinician/Hospital Border Patrol Officer Signature: Date: documented in this encounter Plan of Treatment Upcoming Encounters Date Type Department Care Team (Late st Contact Info) Description 10/27/2024 10:00 AM EDT Appointment MRI [address] [place] [address] Adalberto Painting MD [address] [place] [address] [address] [place], [place] [id number] 10/29/2024 10:30 AM EDT Audio - Telemedicine [facility] [address] [place] [address] [place] [address] Adalberto Painting MD [address] [place] [address] [address] [place] [address] documented as of this encounter Visit Diagnoses Not on filedocumented in this encounter Care Teams Welder Railcar Mechanic Relationship Specialty Start Date End Date Martinez Gutierrez MD [address] [place] [address] PCP - General Family Medicine 10/05/22 documented as of this encounter
--- OUTSIDE RECORDS SUMMARY | 2024-10-14 15:50 | XMS_ITS | Encounter Summary ---
Author Organization [facility] ([place], [place], [place], [place]) Address [address] [place] [address] Care Team Providers Care Retort Fireman Name Role Phone Martinez Canseco MD Primary Care Provider [phone] Encounter Details Date Type Department Care Team (Late st Contact Info) Description 09/12/2018 Transcribed Document [facility] [address] [place] [address] ProviderIvan MD [address] [place], [place] [id number] Social History Tobacco Use Types Packs/Day Years Used Date Smoking Tobacco: Never Assessed Sex and Gender Information Value Date Recorded Sex Assigned at Male 09/13/2021 8:33 PM CDT Legal Sex Male 8:33 PM CDT Gender Identity Male 09/13/2021 8:33 PM CDT Sexual Orientation Not on file documented as of this encounter Miscellaneous Notes * Cerner Conversion Note - Historical ProviderMD - 09/12/2018 1:46 PM CDT Event Note Entered On: 09/12/2018 13:58 EDT Performed On: 09/12/2018 13:46 EDT by Nury Bruce RN Event Note Description of Event : Attempted to ambulate patient. Per bedside RN hold off on ambulation Patients oxygen needs were high and he had just flipped into atrial fibrillation this morning. Patient had a friend in the room. When patient wasn't able to be ambulated, friend became upset and stated that he wanted to speak to Dr. Urias's staff before he left and that he was going to be leaving a little after 10am. He asked if they were in the nurses station. I told him that I hadnt been to the nurses station in a little while but I could ask his nurse to come speak with him. I then wanted to the get patient into chair, patient became upset and stated that I don't work on your all's schedule that we needed to work around his. I asked patient what I could do to assist him this morning. He said he needed to go to the bathroom. Took patient to the bathroom and told him to call out when he was done making sure the red cord was in his hand. Went to the nurses station to inform bedside RN that patient would like to speak with her. Came back to the room shortly after to check on patient and he was already back in the bed. Told patient that I would really like for him to get into the chair, after a little bit patient agreed to get into chair. Nury Bruce RN - 09/12/2018 13:46 EDT documented in this encounter Plan of Treatment Upcoming Encounters Date Type Department Care Team (Late st Contact Info) Description 10/27/2024 10:00 AM EDT Appointment [facility] [address] [place] [address] Adalberto Painting MD [address] [place] [id number] 10/29/2024 10:30 AM EDT Audio - Telemedicine [facility] [address] [place] [address] [place] [phone] Adalberto Painting MD [address] [place] [address] [address] documented as of this encounter Visit Diagnoses Not on filedocumented in this encounter Care Teams Retort Fireman Relationship Specialty Start Date End Date Martinez Canseco MD [address] [place] [address] PCP - General Family Medicine 10/05/22 documented as of this encounter
--- OUTSIDE RECORDS SUMMARY | 2024-10-14 15:50 | XMS_ITS | Encounter Summary ---
Author Organization [employer] ([place], [place], [place], [place]) Address [address] [place] [address] Care Team Providers Care Manager Engine Name Role Phone Martinez Gutierrez MD Primary Care Provider Encounter Details Date Type Department Care Team (Late st Contact Info) Description 09/13/2018 Transcribed Document [facility] [place] Family Medicine [address] [place] [address] ProviderIvan MD [address] [place] [address] Social History Tobacco Use Types [...] Note - Ivan Nino MD - 09/13/2018 12:33 PM CDT [place] [address] TARAIZABELLA MENA :1950 Visit Time:09/02/2018 Your Visit Summary Your Care Team Admitting Physician - ESVIN BUTTS MD-CAT Attending Physician - ESVIN BUTTS MD-CAT Primary Care Physician - YUMI, UNKNOWN Referring Physician - YUMI, UNKNOWN Your Diagnosis Alcohol use 3 beers daily 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, 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, CAD (coronary artery disease), sioux coronary artery, CAD (coronary artery disease), sioux coronary artery Diverticulitis with history of colostomy and recent colostomy reversal HLD (hyperlipidemia) HTN (hypertension) Nicotine dependence with withdrawal Recent Pneumonia Severe COPD and emphysematous lungs Severe mitral regurgitation, Severe mitral regurgitation Unstable angina Discharge Vitals Temperature 36.3 ??C Heart Rate (Monitored) 109 Respiratory Rate 18 Blood Pressure 94/62 What to do next Instructions From Your Care Team Rehabilitation: [facility] Nurse can Call report to [phone] Discharge Summary: fax to [phone] Transportation: Brother will transport We [facility] to deliver portable O2 tank for transport. Discharge Activity: no pushing or pulling, Discharge Activity: No heavy lifting over 10 lbs Diet: Discharge Diet: Heart healthy diet Showering/Bathing Instructions: May shower Driving Restriction: Do Not Drive for 2 months Follow-Up Appointments Follow Up with KEYUR TRUJILLO When 09/30/2018 02:20 AM EDT Comments Appointment has been made Where: [address] [place] [address]- [phone] Follow Up with ESVIN BUTTS When 09/24/2018 01:15 AM EDT Comments Appointment has been made Where: [address] [place] [address]- Business (1) Follow Up with MARTINEZ GUTIERREZ (KRIS) Viri When Within 1 week Comments after discharge from Rehab Where: [address] [place] [address]- , Follow Up with [facility] When Within 6 weeks Comments Office to call with appoint/instructions Where: [phone] Medications What How Much When Instructions Next [...] use an oxygen concentrator: ? Tell your [employer]. Make sure you are given priority service [...] 05/25/2004 Document Revised: 11/01/2016 Document Reviewed: 09/26/2016 [employer] Interactive Patient Education ?? 2019 [employer]. Incentive Spirometer An incentive spirometer is a [...] 07/16/2007 Document Revised: 11/27/2016 Document Reviewed: 10/12/2014 [employer] Interactive Patient Education ?? 2018 Band Metrics. Hypertension Hypertension is another name for high [...] doctor. This is important. Medicines ??? Take qbul-lxm-bnvfrmg and prescription medicines only as told by [...] 08/21/2008 Document Revised: 01/31/2017 Document Reviewed: 01/31/2017 [employer] Interactive Patient Education ?? 2019 [employer]. Heart-Healthy Eating Plan Many factors influence your [...] foods can I eat? Grains Breads, including Lithuanian, white, carolyn, wheat, raisin, rye, oatmeal, and Wolof. Tortillas that are neither fried nor made with lard or trans fat. Low-fat rolls, including hotdog and hamburger buns and Bulgarian muffins. Biscuits. Muffins. Waffles. Pancakes. Light popcorn. Whole-grain cereals. Flatbread. Castell toast. Pretzels. Breadsticks. Rusks. Low-fat snacks and [...] cooking, baking, salads, and as spreads. Other [place] powder. Coffee and tea. All seasonings and [...] cheese. Whole milk cheeses, including blue (shawnee), [place] Benito, Brie, Mark, Mongolian, Havarti, Kosovan, cheddar, Camembert, and [place]view. Whole or 2% milk that is liquid, [...] that has suet, meat fat, or shortening. [place] butter, hydrogenated oils, palm oil, coconut oil, [...] 12/12/2008 Document Revised: 09/22/2016 Document Reviewed: 08/27/2014 [employer] Interactive Patient Education ?? 2019 [employer]. Coronary Artery Bypass Grafting, Care After This sheet gives you information about how to care for yourself after your procedure. Your doctor may also give you more specific instructions. If you have problems or questions, contact your doctor. Follow these instructions at home: Medicines ??? Take qqrd-bvw-qgclgkv and prescription medicines only as told by [...] cannot use soap and water, use hand production machine computer operator. ? Change your dressing as told [...] 03/10/2014 Document Revised: 04/17/2017 Document Reviewed: 04/17/2017 [employer] Interactive Patient Education ?? 2019 [employer] acetaminophen and oxycodone (a SEET a MIN oh fen and OX i KOE done) Endocet 10/325, Endocet 2.5/325, Endocet 5/325, Endocet 7.5/325, Nalocet, Percocet 10/325, Percocet 2.5/325, Percocet 5/325, Percocet 7.5/325, Primalev, Primlev, Roxicet, Xartemis XR What is the most important information I should know about acetaminophen and oxycodone? MISUSE OF OPIOID MEDICINE CAN CAUSE ADDICTION, OVERDOSE, OR . Keep the medication in a place where others cannot get to it. An overdose of acetaminophen can damage your liver or cause . Call your doctor at once if you have pain in your upper stomach, loss of appetite, dark urine, or jaundice (yellowing of your skin or eyes). Taking opioid medicine during may cause life-threatening withdrawal symptoms in the . Fatal side effects can occur if you use opioid medicine with alcohol, or with other drugs that cause drowsiness or slow your breathing. Stop taking this medicine and call your doctor right away if you have skin redness or a rash that spreads and causes blistering and peeling. What is acetaminophen and oxycodone? Oxycodone is an opioid pain medication, sometimes called a narcotic. Acetaminophen is a less potent pain reliever that increases the effects of oxycodone. Acetaminophen and oxycodone is a combination medicine used to relieve moderate to severe pain. Acetaminophen and oxycodone may also be used for purposes not listed in this medication guide. What should I discuss with my healthcare provider before taking acetaminophen and oxycodone? You should not use this medicine if you are allergic to acetaminophen or oxycodone, or if you have: ? severe asthma or breathing problems; or ?? a blockage in your stomach or intestines. Tell your doctor if you have ever had: ? liver disease; ?? a drug or alcohol addiction; ?? kidney disease; ?? a head injury or seizures; ?? urination problems; or ?? problems with your thyroid, pancreas, or gallbladder. If you use opioid medicine while you are , your baby could become dependent on the drug. This can cause life-threatening withdrawal symptoms in the baby after it is born. Babies born dependent on opioids may need medical treatment for several weeks. Do not breast-feed. This medicine can pass into breast milk and cause drowsiness, breathing problems, or in a nursing baby. How should I take acetaminophen and oxycodone? Follow all directions on your prescription label. Never take this medicine in larger amounts, or for longer than prescribed. An overdose can damage your liver or cause . Tell your doctor if the medicine seems to stop working as well in relieving your pain. Never share this medicine with another person, especially someone with a history of drug abuse or addiction. MISUSE CAN CAUSE ADDICTION, OVERDOSE, OR . Keep the medicine in a place where others cannot get to it. Selling or giving away acetaminophen and oxycodone is against the law. Measure liquid medicine carefully. Use the dosing syringe provided, or use a medicine dose-measuring device (not a kitchen spoon). If you need surgery or medical tests, tell the doctor ahead of time that you are using this medicine. You should not stop using this medicine suddenly. Follow your doctor's instructions about tapering your dose. Store at room temperature away from moisture and heat. Keep track of your medicine. You should be aware if anyone is using it improperly or without a prescription. Do not keep leftover opioid medication. Just one dose can cause in someone using this medicine accidentally or improperly. Ask your pharmacist where to locate a drug take-back disposal program. If there is no take-back program, flush the unused medicine down the toilet. What happens if I miss a dose? Since this medicine is used for pain, you are not likely to miss a dose. Skip any missed dose if it is almost time for your next dose. Do not use two doses at one time. What happens if I overdose? Seek emergency medical attention or call the Poison Help line at . An overdose of acetaminophen and oxycodone can be fatal. The first signs of an acetaminophen overdose include loss of appetite, nausea, vomiting, stomach pain, sweating, and confusion or weakness. Later symptoms may include pain in your upper stomach, dark urine, and yellowing of your skin or the whites of your eyes. Overdose can also cause severe muscle weakness, pinpoint pupils, very slow breathing, extreme drowsiness, or coma. What should I avoid while taking acetaminophen and oxycodone? Avoid driving or operating machinery until you know how this medicine will affect you. Dizziness or drowsiness can cause falls, accidents, or severe injuries. Do not drink alcohol. Dangerous side effects or could occur. Ask a doctor or pharmacist before using any other medicine that may contain acetaminophen (sometimes abbreviated as APAP). Taking certain medications together can lead to a fatal overdose. What are the possible side effects of acetaminophen and oxycodone? Get emergency medical help if you have signs of an allergic reaction: hives; difficulty breathing; swelling of your face, lips, tongue, or throat. Opioid medicine can slow or stop your breathing, and may occur. A person caring for you should seek emergency medical attention if you have slow breathing with long pauses, blue colored lips, or if you are hard to wake up. In rare cases, acetaminophen may cause a severe skin reaction that can be fatal. This could occur even if you have taken acetaminophen in the past and had no reaction. Stop taking this medicine and call your doctor right away if you have skin redness or a rash that spreads and causes blistering and peeling. Call your doctor at once if you have: ? noisy breathing, sighing, shallow breathing; ?? a light-headed feeling, like you might pass out; ?? weakness, tiredness, fever, unusual bruising or bleeding; ?? confusion, unusual thoughts or behavior; ?? problems with urination; ?? liver problems--nausea, upper stomach pain, tiredness, loss of appetite, dark urine, vonda-colored stools, jaundice (yellowing of the skin or eyes); or ?? low cortisol levels-- nausea, vomiting, loss of appetite, dizziness, worsening tiredness or weakness. Seek medical attention right away if you have symptoms of serotonin syndrome, such as: agitation, hallucinations, fever, sweating, shivering, fast heart rate, muscle stiffness, twitching, loss of coordination, nausea, vomiting, or diarrhea. Serious side effects may be more likely in older adults and those who are overweight, malnourished, or debilitated. Long-term use of opioid medication may affect fertility (ability to have children) in men or women. It is not known whether opioid effects on fertility are permanent. Common side effects include: ? dizziness, drowsiness, feeling tired; ?? feelings of extreme happiness or sadness; ?? nausea, vomiting, stomach pain; ?? constipation; or ?? headache. This is not a complete list of side effects and others may occur. Call your doctor for medical advice about side effects. You may report side effects to FDA at 1-371-ZDR-7713. What other drugs will affect acetaminophen and oxycodone? You may have breathing problems or withdrawal symptoms if you start or stop taking certain other medicines. Tell your doctor if you also use an antibiotic, antifungal medication, heart or blood pressure medication, seizure medication, or medicine to treat HIV or hepatitis C. Opioid medication can interact with many other drugs and cause dangerous side effects or . Be sure your doctor knows if you also use: ? cold or allergy medicines, bronchodilator asthma/COPD medication, or a diuretic ('water pill'); ?? medicines for motion sickness, irritable bowel syndrome, or overactive bladder; ?? other narcotic medications--opioid pain medicine or prescription cough medicine; ?? a sedative like Valium--diazepam, alprazolam, lorazepam, Xanax, Klonopin, Versed, and others; ?? drugs that make you sleepy or slow your breathing--a sleeping pill, muscle relaxer, medicine to treat mood disorders or mental illness; ?? drugs that affect serotonin levels in your body--a stimulant, or medicine for depression, Parkinson's disease, migraine headaches, serious infections, or nausea and vomiting. This list is not complete. Other drugs may affect acetaminophen and oxycodone, including prescription and lodg-tmq-sngkpix medicines, vitamins, and herbal products. Not all possible interactions are listed here. Where can I get more information? Your doctor or pharmacist can provide more information about acetaminophen and oxycodone. Remember, keep this and all other medicines out of the reach of children, never share your medicines with others, and use this medication only for the indication prescribed. Every effort has been made to ensure that the information provided by [employer]') is accurate, up-to-date, and complete, but no guarantee is made to that effect. Drug information contained herein may be time sensitive. [employer] information has been compiled for use by healthcare practitioners and consumers in the [place] and therefore [employer]um does not warrant that uses outside of the [place] are appropriate, unless specifically indicated otherwise. [employer]'s drug information does not endorse drugs, diagnose patients or recommend therapy. [employer] drug information is an informational resource designed to assist licensed healthcare practitioners in caring for their patients and/or to serve consumers viewing this service as a supplement to, and not a substitute for, the expertise, skill, knowledge and judgment of healthcare practitioners. The absence of a warning for a given drug or drug combination in no way should be construed to indicate that the drug or drug combination is safe, effective or appropriate for any given patient. [facility] does not assume any responsibility for any aspect of healthcare administered with the aid of information [facility] provides. The information contained herein is not intended to cover all possible uses, directions, precautions, warnings, drug interactions, allergic reactions, or adverse effects. If you have questions about the drugs you are taking, check with your doctor, nurse or pharmacist. Copyright 0790-5661 [employer]. Version: 18.02. Revision Date: 02/13/2018.clopidogrel (kloe PID oh grel) Plavix What is the most important information I should know about clopidogrel? You should not use this medicine if you have any active bleeding such as a stomach ulcer or bleeding in the brain. Clopidogrel increases your risk of bleeding, which can be severe or life-threatening. Call your doctor or seek emergency medical attention if you have bleeding that will not stop, if you have blood in your urine, black or bloody stools, or if you cough up blood or vomit that looks like coffee grounds. Do not stop taking clopidogrel without first talking to your doctor, even if you have signs of bleeding. Stopping clopidogrel may increase your risk of a heart attack or stroke. What is clopidogrel? Clopidogrel is used to lower your risk of having a stroke, blood clot, or serious heart problem after you've had a heart attack, severe chest pain (angina), or circulation problems. Clopidogrel may also be used for purposes not listed in this medication guide. What should I discuss with my healthcare provider before taking clopidogrel? You should not use clopidogrel if you are allergic to it, or if you have: ? any active bleeding; or ?? a stomach ulcer or bleeding in the brain (such as from a head injury). Tell your doctor if you have ever had: ? an ulcer in your stomach or intestines; or ?? a bleeding disorder or blood clotting disorder. Clopidogrel may not work as well if you have certain genetic factors that affect the breakdown of this medicine in your body. Your doctor may perform a blood test to make sure clopidogrel is right for you. This medicine is not expected to harm an unborn baby. However, taking clopidogrel within 1 week before childbirth can cause bleeding in the mother. Tell your doctor if you are or plan to become . You should not breast-feed while using this medicine. How should I take clopidogrel? Follow all directions on your prescription label and read all medication guides or instruction sheets. Use these medicines exactly as directed. Clopidogrel can be taken with or without food. Clopidogrel is sometimes taken together with aspirin. Take aspirin only if your doctor tells you to. Clopidogrel keeps your blood from coagulating (clotting) and can make it easier for you to bleed, even from a minor injury. Contact your doctor or seek emergency medical attention if you have any bleeding that will not stop. You may need to stop using clopidogrel for a short time before a surgery, medical procedure, or dental work. Any healthcare provider who treats you should know that you are taking clopidogrel. Do not stop taking clopidogrel without first talking to your doctor, even if you have signs of bleeding. Stopping the medicine could increase your risk of a heart attack or stroke. Store at room temperature away from moisture and heat. What happens if I miss a dose? Take the medicine as soon as you can, but skip the missed dose if it is almost time for your next dose. Do not take two doses at one time. What happens if I overdose? Seek emergency medical attention or call the Poison Help line at . Overdose can cause excessive bleeding. What should I avoid while taking clopidogrel? Avoid alcohol. It can increase your risk of stomach bleeding. Avoid activities that may increase your risk of bleeding or injury. Use extra care to prevent bleeding while shaving or brushing your teeth. If you also take aspirin: Ask a doctor or pharmacist before using medicines for pain, fever, swelling, or cold/flu symptoms. They may contain ingredients similar to aspirin (such as salicylates, ibuprofen, ketoprofen, or naproxen). Taking these products together can increase your risk of bleeding. What are the possible side effects of clopidogrel? Get emergency medical help if you have signs of an allergic reaction: hives; difficult breathing; swelling of your face, lips, tongue, or throat. Clopidogrel increases your risk of bleeding, which can be severe or life-threatening. Call your doctor or seek emergency medical attention if you have bleeding that will not stop, if you have blood in your urine, black or bloody stools, or if you cough up blood or vomit that looks like coffee grounds. Also call your doctor at once if you have: ? pale skin, easy bruising, purple spots under your skin or in your mouth; ?? jaundice (yellowing of your skin or eyes); ?? fast heartbeats, shortness of breath; ?? headache, fever, weakness, feeling tired; ?? little or no urination; ?? a seizure; or ?? signs of a blood clot--sudden numbness or weakness, confusion, problems with vision or speech. This is not a complete list of side effects and others may occur. Call your doctor for medical advice about side effects. You may report side effects to FDA at 6-185-GTM-6360. What other drugs will affect clopidogrel? Certain other medicines may increase your risk of bleeding, including aspirin. Avoid taking aspirin unless your doctor tells you to. Tell your doctor about all your other medicines, especially: ? any other medicines to treat or prevent blood clots; ?? a stomach acid construction or leak gang laborer such as omeprazole, Nexium, or Prilosec; ?? an antidepressant; ?? an opioid medication; ?? a blood thinner--warfarin, Coumadin, Jantoven; or ?? NSAIDs (nonsteroidal anti-inflammatory drugs)--ibuprofen (Advil, Motrin), naproxen (Aleve), celecoxib, diclofenac, indomethacin, meloxicam, and others. This list is not complete. Other drugs may affect clopidogrel, including prescription and yycx-wpo-mmoebhz medicines, vitamins, and herbal products. Not all possible drug interactions are listed here. Where can I get more information? Your pharmacist can provide more information about clopidogrel. Remember, keep this and all other medicines out of the reach of children, never share your medicines with others, and use this medication only for the indication prescribed. Every effort has been made to ensure that the information provided by [employer]') is accurate, up-to-date, and complete, but no guarantee is made to that effect. Drug information contained herein may be time sensitive. [employer] information has been compiled for use by healthcare practitioners and consumers in the [place] and therefore [employer] does not warrant that uses outside of the [place] are appropriate, unless specifically indicated otherwise. [employer] drug information does not endorse drugs, diagnose patients or recommend therapy. [employer] drug information is an informational resource designed to assist licensed healthcare practitioners in caring for their patients and/or to serve consumers viewing this service as a supplement to, and not a substitute for, the expertise, skill, knowledge and judgment of healthcare practitioners. The absence of a warning for a given drug or drug combination in no way should be construed to indicate that the drug or drug combination is safe, effective or appropriate for any given patient. [facility] does not assume any responsibility for any aspect of healthcare administered with the aid of information [facility] provides. The information contained herein is not intended to cover all possible uses, directions, precautions, warnings, drug interactions, allergic reactions, or adverse effects. If you have questions about the drugs you are taking, check with your doctor, nurse or pharmacist. Copyright 5318-7952 [employer]. Version: 15.01. Revision Date: 01/07/2018. Emergency Awareness and Preventative Care STROKE is [...] Assistance with quitting is available by contacting 0-392-OTTZ-NOW. This is a free resource providing counseling, support, and referral. Or you may contact your personal physician. National Suicide Prevention Lifeline: The National Suicide Prevention [...] range between ( 0.0 and 7.0 ) Billings #: 0.72 K/uL -- Normal range between ( 0.16 and 1.00 ) Eos #: 0.02 x10(3)/uL -- Normal range between ( 0.00 and 0.80 ) Billings %: 6.9 % -- Normal range between [...] RBC Morphology: Normal ANC #: 6 K/uL Billings Percent Man: 8 % -- Normal range [...] 18:16:19 MRSA Surveillance: See Result Blood Bank documented in this encounter Plan of Treatment Upcoming Encounters Date Type Department Care Team (Late st Contact Info) Description 10/27/2024 10:00 AM EDT Appointment [facility] [address] [place] [address] Adalberto Painting MD [address] [place] [address] [address] [place] [address] 10/29/2024 10:30 AM EDT Audio - Telemedicine [facility] [facility] [address] [facility] [address] [place] [address] Adalberto Painting MD [address] [facility] [address] [place] [address] documented as of this encounter Visit Diagnoses Not on filedocumented in this encounter Care Teams Manager Engine Relationship Specialty Start Date End Date Martinez Gutierrez MD [address] [place] [address] PCP - General Family Medicine 10/05/22 documented as of this encounter
--- OUTSIDE RECORDS SUMMARY | 2024-10-14 15:50 | XMS_ITS | Encounter Summary ---
Author Organization [employer] ([place], [place], [place], [place]) Address [address] [place] [address] Care Team Providers Care C++ Professor Name Role Phone Martinez Canseco MD Primary Care Provider [phone] Encounter Details Date Type Department Care Team (Late st Contact Info) Description 09/06/2018 Transcribed Document [facility] [facility] [place] [address] [place] [address] ProviderIvan MD [address] [place] [address] Social History Tobacco Use Types Packs/Day Years Used Date Smoking Tobacco: Never Assessed Sex and Gender Information Value Date Recorded Sex Assigned at Male 09/13/2021 8:33 PM CDT Legal Sex Male 8:33 PM CDT Gender Identity Male 09/13/2021 8:33 PM CDT Sexual Orientation Not on file documented as of this encounter Miscellaneous Notes * Cerner Conversion Note - Ivan ProviderMD - 09/06/2018 5:00 AM CDT Chart Check - Review Order Profile Entered On: 09/06/2018 4:48 EDT Performed On: 09/06/2018 5:00 EDT by Meenakshi Gu, RN Chart Check Powerplans Initiated/Discontinued as Appropriate : Yes All Active Orders Reviewed : Yes Meenakshi Gu, RN - 09/06/2018 4:48 EDT Electronically signed by Destiny [facility] Conversion Stain Wiper Cerner at 07/05/2022 8:45 PM CDT documented in this encounter Plan of Treatment Upcoming Encounters Date Type Department Care Team (Late st Contact Info) Description 10/27/2024 10:00 AM EDT Appointment [facility] MRI 1 [place] [phone] Adalberto Painting MD [address] [facility] [address] [place] [address] 10/29/2024 10:30 AM EDT Audio - Telemedicine [facility] [address] [place] [address] [address] [place] [phone] Adalberto Painting MD [address] [facility] [address] [place] [address] documented as of this encounter Visit Diagnoses Not on filedocumented in this encounter Care Teams C++ Professor Relationship Specialty Start Date End Date Martinez Canseco MD [address] [place] [address] PCP - General Family Medicine 10/05/22 documented as of this encounter
--- OUTSIDE RECORDS SUMMARY | 2024-10-14 15:50 | XMS_ITS | Encounter Summary ---
Author Organization [employer] ([place], [place], [place], [place]) Address [address] [place] [address] Care Team Providers Care Forest Fire Control Officer Name Role Phone Martinez Canseco MD Primary Care Provider [phone] Encounter Details Date Type Department Care Team (Late st Contact Info) Description 09/09/[address] [facility] [place] Family Medicine [address] [place] [address] ProviderIvan MD [address] [place], [place] [address] Social History Tobacco Use Types Packs/Day Years Used Date Smoking Tobacco: Never Assessed Sex and Gender Information Value Date Recorded Sex Assigned at Male 09/13/2021 8:33 PM CDT Legal Sex Male 8:33 PM CDT Gender Identity Male 09/13/2021 8:33 PM CDT Sexual Orientation Not on file documented as of this encounter Miscellaneous Notes * Cerner Conversion Note - Ivan Nino MD - 09/09/2018 3:53 PM CDT On Going Discharge Planning Entered On: 09/09/2018 15:58 EDT Performed On: 09/09/2018 15:53 EDT by BIRGIT IQBAL Winder Fixer Care Management Progress Note Discharge Arrangements : Patient Post-Acute Information Patient Name: AUGUSTO PACHECO Gender: Male : 54 Age: 67 Years No Post-Acute Placement(s) Listed No Post-Acute Service(s) Listed No Curaspan Referral(s) Listed Discharge Options Discussed with Patient : DME, Home Health, Short term rehabilitation Barriers to Discharge Identified : Clinical Condition of Patient Is the Patient Meeting Medical Necessity : Yes BIRGIT IQBAL Winder Fixer - 09/09/2018 15:53 EDT Narrative Progress Note Narrative Progress Note : Continue to follow for discharge needs and arrangements, chart reviewed, tranfer from [facility], day 7, currently on 4 liters O2, BUN/Crea=34/1.2, Ca=10.2, CXR=IMPRESSION: Removal of support devices without evidence of pneumothorax or progression of lung disease; PT/OT following, met with patient and daughter, Olga ([phone]) to discuss disposition needs/arrangements, all agree that rehab is best option; clinical information forwarded to [facility], via [employer] for review and possible admission. CM will continue to follow. BIRGIT IQBAL Social Worker - 09/09/2018 15:53 EDT documented in this encounter Plan of Treatment Upcoming Encounters Date Type Department Care Team (Late st Contact Info) Description 10/27/2024 10:00 AM EDT Appointment [facility] 1 [place] [address] Adalberto Painting MD [address] [place] [address] 10/29/2024 10:30 AM EDT Audio - Telemedicine [facility] [address] [place] [address] [address] [place] [address] Adalberto Painting MD [address] [place] [address] [address] documented as of this encounter Visit Diagnoses Not on filedocumented in this encounter Care Teams Forest Fire Control Officer Relationship Specialty Start Date End Date Martinez Canseco MD [address] [place] [address] PCP - General Family Medicine 10/05/22 documented as of this encounter
--- OUTSIDE RECORDS SUMMARY | 2024-10-14 15:50 | XMS_ITS | Encounter Summary ---
Author Organization [employer] ([place], [place], [place], [place]) Address [address] [place] [address] Care Team Providers Care Cash Posting Clerk Name Role Phone Martinez Canseco MD Primary Care Provider [phone] Encounter Details Date Type Department Care Team (Late st Contact Info) Description 09/06/2018 Transcribed Document [facility] [address] [place] [address] ProviderIvan MD [address] [place] [address] Social History Tobacco Use Types [...] Ivan ProviderMD - 09/06/2018 5:00 AM CDT Height and Weight, Routine Entered On: 09/06/2018 4:48 EDT Performed On: 09/06/2018 5:00 EDT by Meenakshi Gu RN Height and Weight, Routine Routine Weight Source : Bed scale Routine Weight Entry Format : Metric Routine Weight, Kilograms : 100.2 kg(Converted to: 220 lb 14 oz) Routine Weight Calculation : 100.2 kg Height Source : Stated Height Entry Format : [place] Height, Feet : 6 ft Height, Inches : 1 Inch Clinical Height : 185.42 cm Body Surface Area (BSA), Routine : 2.24 m2 Body Mass Index (BMI), Routine : 29.14 kg/m2 Meenakshi Gu RN - 09/06/2018 4:48 EDT documented in this encounter Plan of Treatment Upcoming Encounters Date Type Department Care Team (Late st Contact Info) Description 10/27/2024 10:00 AM EDT Appointment [facility] 1 [place] [address] Adalberto Painting MD [address] [place] [address] [address] [place] [address] 10/29/2024 10:30 AM EDT Audio - Telemedicine [facility] [address] [place] [address] [place] [phone] Adalberto Painting MD [address] [place] [address] [address] [place] [address] documented as of this encounter Visit Diagnoses Not on filedocumented in this encounter Care Teams Cash Posting Clerk Relationship Specialty Start Date End Date Martinez Canseco MD [address] [place] [address] PCP - General Family Medicine 10/05/22 documented as of this encounter
--- OUTSIDE RECORDS SUMMARY | 2024-10-14 15:50 | XMS_ITS | Encounter Summary ---
Author Organization [employer] ([place], [place], [place], [place]) Address [address] [place] [address] Care Team Providers Care Class A Lineman Name Role Phone Martinez Canseco MD Primary Care Provider [phone] Encounter Details Date Type Department Care Team (Late st Contact Info) Description 09/09/2018 Transcribed Document [facility] [place] Family Medicine [address] [place] [address] ProviderIvan MD [address] [place] [address] Social History Tobacco Use Types Packs/Day Years [...] Ivan ProviderMD - 09/09/2018 5:00 AM CDT Chart Check - Review Order Profile Entered On: 09/09/2018 4:57 EDT Performed On: 09/09/2018 5:00 EDT by Lisa Velazquez, Karla-Resource Chart Check Powerplans Initiated/Discontinued as Appropriate : Yes All Active Orders Reviewed : Yes Chart Reviewed With : Lisa Velazquez, Rn-Resource Lisa Velazquez, Rn-Resource - 09/09/2018 4:57 EDT documented in this encounter Plan of Treatment Upcoming Encounters Date Type Department Care Team (Late st Contact Info) Description 10/27/2024 10:00 AM EDT Appointment [facility] MRI 1 [place] [address] [place] [address] [place] [address] [address] [place] [address] 10/29/2024 10:30 AM EDT Audio - Telemedicine [facility] [address] [facility] [address] [place] [address] [place] [address] [place] [address] [address] [place] [phone] documented as of this encounter Visit Diagnoses Not on filedocumented in this encounter Care Teams Class A Lineman Relationship Specialty Start Date End Date Martinez Canesco MD [address] [place] [address] PCP - General Family Medicine 10/05/22 documented as of this encounter
--- OUTSIDE RECORDS SUMMARY | 2024-10-14 15:50 | XMS_ITS | Clinical Summary ---
Author Organization [employer] ([place], [place], [place], [place]) Address [address] [place] [address] Care Team Providers Care Fibre Cement Moulder Name Role Phone Martinez Canseco MD Primary Care Provider [phone] Allergies No known active allergies Medications amLODIPine [...] Active Active Problems No known active problems Encounters Date Type Department Care Team Description 10/13/2024 Orders Only [facility] [address] [place] [address] [address] Adalberto Painting MD Liver mass (Primary Dx) from Last 3 Months Social History Tobacco Use Types Packs/Day Years [...] Date Iain rded Speak language other than Paraguayan at home Not on file 03/31/2023 Want [...] Info) Description 10/27/2024 10:00 AM EDT Appointment [facility] 1 [place] [address] Adalberto Painting MD [address] [place] [address] [address] [phone] 10/29/2024 10:30 AM EDT Audio - Telemedicine [facility] [address] [place] [address] [place] [phone] Adalberto Painting MD [address] [place] [address] [address] [place] [address] Health Maintenance Due Date Last Done Comments CT Colonography 1952 Colonoscopy 1952 Colorectal Cancer Screening 1952 FOBT/FIT 1952 Fit-DNA (Cologuard) 1952 Sigmoidoscopy 1952 Depression Screening (12+) 1964 Hepatitis C Screening 1970 Medicare Initial AWV [id number] 08/18/2018 Pneumococcal 50+ years (2 of 2 - PCV) 02/16/2021 02/17/2020 Tobacco Cessation Counseling and Screening (12+) 10/24/2023 10/23/2022 COVID-19 VACCINE (5 - 2023-2 5 season) 2023 07/20/2021, 01/21/2021, 06/23/2020, Additional history exists Falls Risk Screening 03/19/2024 Influenza Vaccine (#1) 2024 12/29/2021, 2019 DTAP/TDAP/TD VACCINES (3 - T d or Tdap) 09/18/2026 09/18/2016, 05/21/1996 Respiratory Syncytial Virus (RSV) Adult or (1 - 1-dose 75+ series) 09/17/2027 Shingles Vaccine (Zoster) Completed 09/04/2022, Insurance MEDICARE PART A B Member Subscriber Plan / Payer (Ef fective 2017-Present) Name:Augusto Hansen Member ID:[id number] Relation to Subscriber:Self Name:Augusto Hansen Subscriber ID:[id number] Payer ID:[id number] Group ID:Not on file Type:Not on file Address: [address] [place] [id number] [place] [address] Care Teams Fibre Cement Moulder Relationship Specialty Start Date End Date Martinez Canseco MD [address] [place] [address] PCP - General Family Medicine 10/05/22
--- OUTSIDE RECORDS SUMMARY | 2024-10-14 15:50 | XMS_ITS | Encounter Summary ---
Author Organization [employer] ([place], [place], [place], [place]) Address [address] [place] [address] Care Team Providers Care Director Of Financial Reporting Name Role Phone Martinez Canseco MD Primary Care Provider [phone] Encounter Details Date Type Department Care Team (Late st Contact Info) Description 09/10/2018 Transcribed Document [facility] [place] Family Medicine [address] [place] [address] ProviderIvan MD [address] [place] [address] Social History Tobacco Use Types Packs/Day Years Used Date Smoking Tobacco: Never Assessed Sex and Gender Information Value Date Recorded Sex Assigned at Male 09/13/2021 8:33 PM CDT Legal Sex Male 8:33 PM CDT Gender Identity Male 09/13/2021 8:33 PM CDT Sexual Orientation Not on file documented as of this encounter Miscellaneous Notes * Cerner Conversion Note - Ivan ProviderMD - 09/10/2018 5:00 PM CDT Chart Check - Review Order Profile Entered On: 09/10/2018 15:02 EDT Performed On: 09/10/2018 17:00 EDT by Meghan Lew, RN Chart Check Powerplans Initiated/Discontinued as Appropriate : Yes All Active Orders Reviewed : Yes Meghan Lew, RN - 09/10/2018 15:01 EDT documented in this encounter Plan of Treatment Upcoming Encounters Date Type Department Care Team (Late st Contact Info) Description 10/27/2024 10:00 AM EDT Appointment [facility] MRI 1 [place] [address] Adalberto Painting MD [address] [facility] [address] [place] [phone] 10/29/2024 10:30 AM EDT Audio - Telemedicine [facility] [address] [place] [address] [address] [place] [address] Adalberto Painting MD [address] [facility] [address] [place] [phone] documented as of this encounter Visit Diagnoses Not on filedocumented in this encounter Care Teams Director Of Financial Reporting Relationship Specialty Start Date End Date Martinez Canseco MD [address] [place] [address] PCP - General Family Medicine 10/05/22 documented as of this encounter
--- OUTSIDE RECORDS SUMMARY | 2024-10-14 15:50 | XMS_ITS | Encounter Summary ---
Author Organization [employer] ([place], [place], [place], [place]) Address [address] [place] [address] Care Team Providers Care Chronic Manager Name Role Phone Martinez Canseco MD Primary Care Provider [phone] Encounter Details Date Type Department Care Team (Late st Contact Info) Description 09/11/2018 Transcribed Document [facility] [place] Family Medicine [address] [place] [address] ProviderIvan MD [address] [place], [place] [address] Social History Tobacco Use Types Packs/Day Years Used Date Smoking Tobacco: Never Assessed Sex and Gender Information Value Date Recorded Sex Assigned at Male 09/13/2021 8:33 PM CDT Legal Sex Male 8:33 PM CDT Gender Identity Male 09/13/2021 8:33 PM CDT Sexual Orientation Not on file documented as of this encounter Miscellaneous Notes * Cerner Conversion Note - Ivan Nino MD - 09/11/2018 4:38 PM CDT On Going Discharge Planning Entered On: 09/11/2018 16:45 EDT Performed On: 09/11/2018 16:38 EDT by LEANDER FAUSTIN, Karla-Drip Pumper ED Care Management Progress Note Discharge Arrangements : Patient Post-Acute Information Patient Name: AUGUSTO PACHECO Gender: Male : 54 Age: 67 Years Curaspan Referral(s): Service: Organization: Business Address: Phone Number: Acute Rehab [facility] [address] , [place], [address] Discharge Options Discussed with Patient : DME, Home Health, Short term rehabilitation Barriers to Discharge Identified : Clinical Condition of Patient Barriers to Discharge Unresolved : Clinical Condition of Patient Patient Offered Choice/Affiliations Explained : Yes Were Referrals Sent to Post Acute Providers : Yes LEANDER FAUSTIN, Rn-Drip Pumper ED - 09/11/2018 16:38 EDT Narrative Progress Note Narrative Progress Note : Bronch with Dr. Grimes today. POD #7 MVR and CABG x2. Pt is on high flow NC 12L post procedure. HR 118. Per CTS note, pt will likely be ready for d/c 24-48hrs. Spoke with Elyssa and Echo at [facility] p [phone] f [phone] who are following for admission. Updates sent to facility via [employer]. LEANDER FAUSTIN, Rn-Drip Pumper ED - 09/11/2018 16:38 EDT documented in this encounter Plan of Treatment Upcoming Encounters Date Type Department Care Team (Late st Contact Info) Description 10/27/2024 10:00 AM EDT Appointment [facility] 1 [place] [address] Adalberto Painting MD [address] [place] [address] [place] [address] 10/29/2024 10:30 AM EDT Audio - Telemedicine [facility] [address] [facility] [address] [place] [address] Adalberto Painting MD [address] [place] [address] [address] [place], [place] [phone] documented as of this encounter Visit Diagnoses Not on filedocumented in this encounter Care Teams Chronic Manager Relationship Specialty Start Date End Date Martinez Canseco MD [address] [place] [address] PCP - General Family Medicine 10/05/22 documented as of this encounter
--- OUTSIDE RECORDS SUMMARY | 2024-10-14 15:50 | XMS_ITS | Encounter Summary ---
Author Organization [employer] ([place], [place], [place], [place]) Address [address] [place] [address] Care Team Providers Care Gallery Intern Name Role Phone Martinez Canseco MD Primary Care Provider [phone] Encounter Details Date Type Department Care Team (Late st Contact Info) Description 09/13/2018 Transcribed Document [facility] Family Medicine [address] [place] [address] ProviderIvan MD [address] [place], [place] [address] Social History Tobacco Use Types Packs/Day Years Used Date Smoking Tobacco: Never Assessed Sex and Gender Information Value Date Recorded Sex Assigned at Male 09/13/2021 8:33 PM CDT Legal Sex Male 8:33 PM CDT Gender Identity Male 09/13/2021 8:33 PM CDT Sexual Orientation Not on file documented as of this encounter Miscellaneous Notes * Cerner Conversion Note - Ivan Nino MD - 09/13/2018 9:47 AM CDT On Going Discharge Planning Entered On: 09/13/2018 9:47 EDT Performed On: 09/13/2018 9:47 EDT by BIRGIT IQBAL Bootmaker Care Management Progress Note Discharge Arrangements : Patient Post-Acute Information Patient Name: AUGUSTO PACHECO Gender: Male : 54 Age: 67 Years Curaspan Referral(s): Service: Organization: Business Address: Phone Number: [facility] [address], [place], [address] Discharge Options Discussed with Patient : DME, Home Health, Short term rehabilitation Barriers to Discharge Identified : Clinical Condition of Patient Barriers to Discharge Unresolved : All resolved Designation of Choice Signed : Yes Patient Offered Choice/Affiliations Explained : Yes List/Info Provided Pt/Fam/Support Person : Other: acute rehab Were Referrals Sent to Post Acute Providers : Yes Does the Patient have a Floor to SNF Benefit? : Yes BIRGIT IQBAL, Bootmaker - 09/13/2018 9:47 EDT Electronically signed by Destiny [facility] Conversion Inspector Line Cerner at 07/05/2022 8:26 PM CDT documented in this encounter Plan of Treatment Upcoming Encounters Date Type Department Care Team (Late st Contact Info) Description 10/27/2024 10:00 AM EDT Appointment [facility] 1 [place] [address] [place] [address] [place] [address] [address] [place] [phone] 10/29/2024 10:30 AM EDT Audio - Telemedicine [facility] [address] [facility] [address] [place] [address] [place] [address] [place] [address] [address] [place] [address] documented as of this encounter Visit Diagnoses Not on filedocumented in this encounter Care Teams Gallery Intern Relationship Specialty Start Date End Date Martinez Canseco MD [address] [place] [address] PCP - General Family Medicine 10/05/22 documented as of this encounter
--- OUTSIDE RECORDS SUMMARY | 2024-10-14 15:50 | XMS_ITS | Encounter Summary ---
Author Organization [employer] ([place], [place], [place], [place]) Address [address] [place] [address] Care Team Providers Care Customer Service Supervisor Name Role Phone Martinez Canseco MD Primary Care Provider [phone] Encounter Details Date Type Department Care Team (Late st Contact Info) Description 09/13/2018 Transcribed Document [facility] Family Medicine [address] [place] [address] ProviderIvan MD [address] [place] [address] Social History Tobacco Use Types Packs/Day Years [...] Nino MD - 09/13/2018 9:47 AM CDT Final Discharge Planning Entered On: 09/13/2018 9:52 EDT Performed On: 09/13/2018 9:47 EDT by BIRGIT IQBAL Property Utilization Officer Final Discharge Planning Discharge Arrangements : Patient Post-Acute Information Patient Name: AUGUSTO PACHECO Gender: Male : 54 Age: 67 Years Curaspan Referral(s): Service: Organization: Business Address: Phone Number: Acute Rehab [facility] [address] [facility] , [place], [address] Important Medicare Message Reviewed With : Patient Important Medicare Message Reviewed D/T : 09/13/2018 9:30 EDT Transportation Needs : Family/Friend Discharge Transportation Arrangement Cmt : [facility] will transport to facility Follow Up Appointment Scheduled : Yes Patient/Family Notified of Plan : Yes Patient/Family Notified : Daryl Loza. Discharge To Care Management : IRF -Inpatient Rehabilitation Facility-62 BIRGIT IQBAL Property Utilization Officer - 09/13/2018 9:47 EDT Final Narrative Note Final Narrative Note : Continue to follow for discharge needs and arrangements, chart reviewed, patient to discharge and transfer to [facility] (loc=acute rehab) today. Patient to be transported via brother, who is at bedside, portable O2 for transport to be delivered to bedside via [facility]. RN report to be called to [phone], DC summary to be faxed to [phone]. Pt, RN and family aware and in agreement with plan. BIRGIT IQBAL Property Utilization Officer - 09/13/2018 9:47 EDT documented in this encounter Plan of Treatment Upcoming Encounters Date Type Department Care Team (Late st Contact Info) Description 10/27/2024 10:[address] [facility] 1 [place] [phone] Adalberto Painting MD [address] [place] [address] [address] [place] [address] 10/29/2024 10:30 AM EDT Audio - Telemedicine [facility] [address] [place] [address] [address] [place] [address] [place] [address] [place] [address] [address] [place] [address] documented as of this encounter Visit Diagnoses Not on filedocumented in this encounter Care Teams Customer Service Supervisor Relationship Specialty Start Date End Date Martinez Canseco MD [address] [place] [address] PCP - General Family Medicine 10/05/22 documented as of this encounter
--- OUTSIDE RECORDS SUMMARY | 2024-10-14 15:50 | XMS_ITS | Encounter Summary ---
Author Organization [employer] ([place], [place], [place], [place]) Address [address] [place] [address] Care Team Providers Care Senior Ux Designer Name Role Phone Martinez Canseco MD Primary Care Provider [phone] Encounter Details Date Type Department Care Team (Late st Contact Info) Description 09/13/2018 Transcribed Document [facility] [place] [address] [place] [address] ProviderIvan MD [address] [place], [place] [address] Social History Tobacco Use Types Packs/Day Years Used Date Smoking Tobacco: Never Assessed Sex and Gender Information Value Date Recorded Sex Assigned at Male 09/13/2021 8:33 PM CDT Legal Sex Male 8:33 PM CDT Gender Identity Male 09/13/2021 8:33 PM CDT Sexual Orientation Not on file documented as of this encounter Miscellaneous Notes * Cerner Conversion Note - Ivan ProviderMD - 09/13/2018 2:00 AM CDT Power Operator Details Entered On: 09/13/2018 0:15 EDT Performed On: 09/13/2018 2:00 EDT by Rosa Elena Mancia RN Order Details Transport Mode Order Detail : Wheelchair Isolation Precautions Order Detail : Standard Precautions Order Detail : N/A IV Order Detail : 1 Oxygen Order Detail : 1 Nurse Collect Order Detail : 0 Lift/Transfer : Moderate assist Central Line Order Detail : No Room Service : Appropriate Arterial Line : No Rosa Elena Mancia RN - 09/13/2018 0:15 EDT Electronically signed by Destiny [facility] Conversion End User Consultant Cerner at 07/05/2022 8:52 PM CDT documented in this encounter Plan of Treatment Upcoming Encounters Date Type Department Care Team (Late st Contact Info) Description 10/27/2024 10:00 AM EDT Appointment [facility] 1 [place] [address] [place] [address] [place] [address] [address] [place] [address] 10/29/2024 10:30 AM EDT Audio - Telemedicine [facility] [address] [place] [address] [place] [address] Adalberto Painting MD [address] [place] [address] [address] [place] [address] documented as of this encounter Visit Diagnoses Not on filedocumented in this encounter Care Teams Senior Ux Designer Relationship Specialty Start Date End Date Martinez Canseco MD [address] [place] [address] PCP - General Family Medicine 10/05/22 documented as of this encounter
--- OUTSIDE RECORDS SUMMARY | 2024-10-14 15:50 | XMS_ITS | Encounter Summary ---
Author Organization [employer] ([place], [place], [place], [place]) Address [address] [place] [address] Care Team Providers Care Manager Mba Name Role Phone Martinez Canseco MD Primary Care Provider [phone] Encounter Details Date Type Department Care Team (Late st Contact Info) Description 09/07/2018 Transcribed Document [facility] [place] Family Medicine [address] [place] [address] ProviderIvan MD [address] [place] [address] Social History Tobacco Use Types [...] Conversion Note - Ivan Nino MD - 09/07/2018 7:49 AM CDT Patient: AUGUSTO PACHECO Age: 67 years Sex: Male : 1950 Associated Diagnoses: None Author: ESVIN BUTTS MD-CAT Basic Information POD: 3 Present at bedside: Medical personnel. Health Status Allergies: Allergic Reactions (All) No Known Allergies Physical Examination Intake and Output I/O: 2144 / 1160 Urine Output: 340 ml / 12 hrs CTs: 90 ml / 12 hrs, Drip: Epi: 0.01 VS/Measurements Vitals Signs (last 24 hrs) Last Charted Minimum Maximum Apical HR 82 (SEP 07 07:33) 82 (SEP 07 07:33) 82 (SEP 07 07:33) Mon HR 81 (SEP 07 07:00) 76 (SEP 06 10:36) 100 (SEP 06 20:00) Resp Rate 18 (SEP 07 04:32) 16 (SEP 06 14:00) H 25 (SEP 06 09:00) SBP 105 (SEP 07 07:00) L 87 (SEP 06 20:00) 137 (SEP 06 14:00) DBP L 57 (SEP 07 07:00) L 50 (SEP 06 23:00) 66 (SEP 06 14:00) MAP 81 (SEP 07 07:00) 6 (SEP 06 18:00) 106 (SEP 06 17:00) SpO2 L 92 (SEP 07 07:00) L 87 (SEP 07 00:00) 99 (SEP 06 16:29) , Cardiac Index: 2.6 General: Alert and oriented, No acute distress. Neck: Supple, No jugular venous distention. Respiratory: Lungs are clear to auscultation. Cardiovascular: Normal rate, Regular rhythm. Gastrointestinal: Soft, Non-tender. Musculoskeletal: Lower extremity exam: warm.. Integumentary: Warm, Dry, Sternal Wound: Clean/Dry/intact. Neurologic: Alert, Oriented. Psychiatric: Cooperative, Appropriate mood & affect. Review / Management Results review: SEP 07 04:11 140 107 19 / H 134 4.2 29 0.80 \ SEP 07 04:11 \ L 8.9 / H 10.5 L 123 / L 26.8 \. Impression and Plan S/P CABG, MVV Plan: Diuresis. D/C Chest tubes. Wean Epi to off. documented in this encounter Plan of Treatment Upcoming Encounters Date Type Department Care Team (Late st Contact Info) Description 10/27/2024 10:00 AM EDT Appointment [address] [address] Adalberto Painting MD [address] [facility] [address] [place] [address] 10/29/2024 10:30 AM EDT Audio - Telemedicine [facility] [address] [facility] [address] [place] [phone] [place] [address] [place] [address] [address] [place] [address] documented as of this encounter Visit Diagnoses Not on filedocumented in this encounter Care Teams Manager Mba Relationship Specialty Start Date End Date Martinez Canseco MD [address] [place] [address] PCP - General Family Medicine 10/05/22 documented as of this encounter
--- OUTSIDE RECORDS SUMMARY | 2024-10-14 15:50 | XMS_ITS | Encounter Summary ---
Author Organization [employer] ([place], [place], [place], [place]) Address [address] [place] [address] Care Team Providers Care Coke Worker Name Role Phone Martinez Canseco MD Primary Care Provider [phone] Encounter Details Date Type Department Care Team (Late st Contact Info) Description 09/06/2018 Transcribed Document [facility] [place] Family Medicine [address] [place] [address] ProviderIvan MD [address] [place], [place] [address] Social History Tobacco Use Types Packs/Day Years Used Date Smoking Tobacco: Never Assessed Sex and Gender Information Value Date Recorded Sex Assigned at Male 09/13/2021 8:33 PM CDT Legal Sex Male 8:33 PM CDT Gender Identity Male 09/13/2021 8:33 PM CDT Sexual Orientation Not on file documented as of this encounter Miscellaneous Notes * Cerner Conversion Note - Ivan ProviderMD - 09/06/2018 2:00 AM CDT Missileman Details Entered On: 09/06/2018 1:45 EDT Performed On: 09/06/2018 2:00 EDT by Meenakshi Gu RN Order Details Transport Mode Order Detail : Bed (including specialty) Isolation Precautions Order Detail : Standard Precautions Order Detail : N/A IV Order Detail : 1 Oxygen Order Detail : 1 Nurse Collect Order Detail : 1 Lift/Transfer : Maximal assist Central Line Order Detail : Yes Room Service : Not Appropriate Arterial Line : Yes Meenakshi Gu RN - 09/06/2018 1:45 EDT documented in this encounter Plan of Treatment Upcoming Encounters Date Type Department Care Team (Late st Contact Info) Description 10/27/2024 10:00 AM EDT Appointment [facility] 1 [place] [phone] [place] [address] [place] [address] [address] [place] [address] 10/29/2024 10:30 AM EDT Audio - Telemedicine [facility] [address] [place] [address] [place] [address] [place] [address] [place] [address] [address] [place] [id number] documented as of this encounter Visit Diagnoses Not on filedocumented in this encounter Care Teams Coke Worker Relationship Specialty Start Date End Date Martinez Canseco MD [address] [place] [address] PCP - General Family Medicine 10/05/22 documented as of this encounter
--- OUTSIDE RECORDS SUMMARY | 2024-10-14 15:50 | XMS_ITS | Encounter Summary ---
Author Organization [employer] ([place], [place], [place], [place]) Address [address] [place] [address] Care Team Providers Care Yarn Bleaching Machine Operator Name Role Phone Martinez Canseco MD Primary Care Provider [phone] Encounter Details Date Type Department Care Team (Late st Contact Info) Description 09/10/2018 Transcribed Document [facility] [place] [address] [place] [address] ProviderIvan MD [address] [place], [place] [address] Social History Tobacco Use Types Packs/Day Years Used Date Smoking Tobacco: Never Assessed Sex and Gender Information Value Date Recorded Sex Assigned at Male 09/13/2021 8:33 PM CDT Legal Sex Male 8:33 PM CDT Gender Identity Male 09/13/2021 8:33 PM CDT Sexual Orientation Not on file documented as of this encounter Miscellaneous Notes * Cerner Conversion Note - Ivan ProviderMD - 09/10/2018 11:57 AM CDT Consult Phone Call Documentation Entered On: 09/10/2018 12:34 EDT Performed On: 09/10/2018 11:57 EDT by Meghan Lew, RN Phone Call for Consults Consult Phone Call/Page Attempt : First call Consult Reason : increasing O2 requirements Physician Covering for Consult : ZOIE MELÉNDEZ, Meghan Jansen, RN - 09/10/2018 12:33 EDT Electronically signed by Destiny [facility] Conversion Lead Web Developer Alondra at 07/05/2022 8:48 PM CDT documented in this encounter Plan of Treatment Upcoming Encounters Date Type Department Care Team (Late st Contact Info) Description 10/27/2024 10:00 AM EDT Appointment [facility] 1 [place] [address] Adalberto Painting MD [address] [facility] [address] [place] [phone] 10/29/2024 10:30 AM EDT Audio - Telemedicine [facility] [address] [facility] [address] [place] [address] [place] [address] [place] [address] [address] [place] [address] documented as of this encounter Visit Diagnoses Not on filedocumented in this encounter Care Teams Yarn Bleaching Machine Operator Relationship Specialty Start Date End Date Martinez Canseco MD [address] [place] [address] PCP - General Family Medicine 10/05/22 documented as of this encounter
--- OUTSIDE RECORDS SUMMARY | 2024-10-14 15:50 | XMS_ITS | Encounter Summary ---
Author Organization [employer] ([place], [place], [place], [place]) Address [address] [place] [address] Care Team Providers Care Traveling Nurse Name Role Phone Martinez Canseco MD Primary Care Provider [phone] Encounter Details Date Type Department Care Team (Late st Contact Info) Description 09/12/2018 Transcribed Document [facility] [place] [address] [place] [address] ProviderIvan MD [address] [place], [place] [address] Social History Tobacco Use Types Packs/Day Years Used Date Smoking Tobacco: Never Assessed Sex and Gender Information Value Date Recorded Sex Assigned at Male 09/13/2021 8:33 PM CDT Legal Sex Male 8:33 PM CDT Gender Identity Male 09/13/2021 8:33 PM CDT Sexual Orientation Not on file documented as of this encounter Miscellaneous Notes * Cerner Conversion Note - Ivan ProviderMD - 09/12/2018 2:00 AM CDT Refueling Ramp Supervisor Details Entered On: 09/12/2018 1:10 EDT Performed On: 09/12/2018 2:00 EDT by Rosa Elena Mancia RN [...] : No Rosa Elena Mancia RN - 09/12/2018 1:09 EDT Electronically signed by Destiny [facility] Conversion Plastics Fabricator Or Welder Cerner at 07/05/2022 8:37 PM CDT documented in this encounter Plan of Treatment Upcoming Encounters Date Type Department Care Team (Late st Contact Info) Description 10/27/2024 10:00 AM EDT Appointment [facility] 1 [place] [address] [place] [address] [place] [address] [address] [place] [address] 10/29/2024 10:30 AM EDT Audio - Telemedicine [facility] [address] [place] [address] [place] [address] Adalberto Painting MD [address] [place] [address] [address] [place] [address] documented as of this encounter Visit Diagnoses Not on filedocumented in this encounter Care Teams Traveling Nurse Relationship Specialty Start Date End Date Martinez Canseco MD [address] [place] [address] PCP - General Family Medicine 10/05/22 documented as of this encounter
--- OUTSIDE RECORDS SUMMARY | 2024-10-14 15:50 | XMS_ITS | Encounter Summary ---
Author Organization [employer] ([place], [place], [place], [place]) Address [address] [place] [address] Care Team Providers Care Asset Protection Professional Name Role Phone Martinez Canseco MD Primary Care Provider [phone] Encounter Details Date Type Department Care Team (Late st Contact Info) Description 09/13/2018 Transcribed Document [facility] [place] Family Medicine [address] [place] [address] ProviderIvan MD [address] [place], [place] [address] Social History Tobacco Use Types Packs/Day Years Used Date Smoking Tobacco: Never Assessed Sex and Gender Information Value Date Recorded Sex Assigned at Male 09/13/2021 8:33 PM CDT Legal Sex Male 8:33 PM CDT Gender Identity Male 09/13/2021 8:33 PM CDT Sexual Orientation Not on file documented as of this encounter Miscellaneous Notes * Cerner Conversion Note - Historical ProviderMD - 09/13/2018 3:30 PM CDT Discharge Summary, PT Entered On: 09/13/2018 15:30 EDT Performed On: 09/13/2018 15:30 EDT by LEONELA SOUZA PT Discharge Summary Discharged to, Therapy : Unit, rehabilitation Discharge Summary Comment, PT : As of 09/12, pt ambulating 125ft x2 with RWx Daroin; pt disch to rehab setting; pt met 2/3 STG and 0/3 LTG LEONELA SOUZA, PT - 09/13/2018 15:31 EDT Reason for Discharge : Discharged from hospital LEONELA SOUZA, PT - 09/13/2018 15:30 EDT Short Term Goals Mobility/Bed Mobility STG PT Grid Goal #1 Goal #2 Activity : Supine to sit Sit to stand Assist : Assist, moderate Assist, moderate Equipment : Rail, bed Walker, front wheel Date to Meet : 09/14/2018 EDT 09/14/2018 EDT Goal Status : Goal met Goal met Date Met : 09/08/2018 EDT 09/08/2018 EDT LEONELA SOUZA, PT - 09/13/2018 15:31 EDT SOUZALEONELA, PT - 09/13/2018 15:31 EDT Ambulation STG Grid Goal #1 Device : Walker, front wheel Distance : 150' Assist : Assist, minimal Date to Meet : 09/14/2018 EDT Goal Status : Not met LEONELA SOUZA, PT - 09/13/2018 15:31 EDT Forest Fire Specialist Supervisor Goals Mobility/Bed Mobility LTG PT Grid Goal #1 Goal #2 Activity : Supine to sit Sit to stand Assist : Supervision or set-up Supervision or set-up Equipment : Rail, bed Walker, front wheel Date to Meet : 09/21/2018 EDT 09/21/2018 EDT Goal Status : Not met Not met LEONELA SOUZA, PT - 09/13/2018 15:31 EDT SOUZALEONELA, PT - 09/13/2018 15:31 EDT Ambulation LTG Grid Goal #1 Device : Walker, front wheel Distance : 375' Assist : Supervision or set-up Date to Meet : 09/21/2018 EDT Goal Status : Not met LEONELA SOUZA, PT - 09/13/2018 15:31 EDT documented in this encounter Plan of Treatment Upcoming Encounters Date Type Department Care Team (Late st Contact Info) Description 10/27/2024 10:00 AM EDT Appointment [facility] 1 [place] [address] Adalberto Painting MD [address] [place] [address] [address] [place] [phone] 10/29/2024 10:30 AM EDT Audio - Telemedicine [facility] [address] [place] [address] [address] [place] [address] Adalberto Painting MD [address] [facility] [address] [place] [address] documented as of this encounter Visit Diagnoses Not on filedocumented in this encounter Care Teams Asset Protection Professional Relationship Specialty Start Date End Date Martinez Canseco MD [address] [place] [address] PCP - General Family Medicine 10/05/22 documented as of this encounter
--- OUTSIDE RECORDS SUMMARY | 2024-10-14 15:50 | XMS_ITS | Encounter Summary ---
Author Organization [employer] ([place], [place], [place], [place]) Address [address] [place] [address] Care Team Providers Care Artificial Stone Applicator Name Role Phone Martinez Canseco MD Primary Care Provider [phone] Encounter Details Date Type Department Care Team (Late st Contact Info) Description 09/06/[address] [facility] [place] Family Medicine [address] [place] [address] ProviderIvan MD [address] [place], [place] [address] Social History Tobacco Use Types Packs/Day Years Used Date Smoking Tobacco: Never Assessed Sex and Gender Information Value Date Recorded Sex Assigned at Male 09/13/2021 8:33 PM CDT Legal Sex Male 8:33 PM CDT Gender Identity Male 09/13/2021 8:33 PM CDT Sexual Orientation Not on file documented as of this encounter Miscellaneous Notes * Cerner Conversion Note - Ivan Nino MD - 09/06/2018 6:15 PM CDT Sepsis Screening Tool Entered On: 09/06/2018 20:47 EDT Performed On: 09/06/2018 18:15 EDT by DESIREE Figueroa RN Provider Notification Provider Notified of Concerns/Results : Lab result Provider Response : No new orders Provider Notified Name : ARLETTE DE JESUS MD Provider Notified Time : 09/06/2018 8:00 EDT Results to Provider Comment : notified of WBC count of 12.9 DESIREE Figueroa RN - 09/06/2018 20:46 EDT Electronically signed by Destiny [facility] Conversion Icing Maker Cerner at 07/05/2022 8:48 PM CDT documented in this encounter Plan of Treatment Upcoming Encounters Date Type Department Care Team (Late st Contact Info) Description 10/27/2024 10:00 AM EDT Appointment [facility] 1 [place] [address] Adalberto Painting MD [address] [place] [address] [address] [place] [address] 10/29/2024 10:30 AM EDT Audio - Telemedicine [facility] [address] [place] [address] [place] [address] Adalberto Painting MD [address] [place] [address] [address] [place] [address] documented as of this encounter Visit Diagnoses Not on filedocumented in this encounter Care Teams Artificial Stone Applicator Relationship Specialty Start Date End Date Martinez Canseco MD [address] [place] [address] PCP - General Family Medicine 10/05/22 documented as of this encounter
--- OUTSIDE RECORDS SUMMARY | 2024-10-14 15:50 | XMS_ITS | Encounter Summary ---
Author Organization [employer] ([place], [place], [place], [place]) Address [address] [facility] [place] [address] Care Team Providers Care Cane Piler Name Role Phone Martinez Canseco MD Primary Care Provider [phone] Encounter Details Date Type Department Care Team (Late st Contact Info) Description 09/06/2018 Transcribed Document [facility] [place] [address] [place] [address] ProviderIvan MD [address] [place], [place] [address] Social History Tobacco Use Types Packs/Day Years Used Date Smoking Tobacco: Never Assessed Sex and Gender Information Value Date Recorded Sex Assigned at Male 09/13/2021 8:33 PM CDT Legal Sex Male 8:33 PM CDT Gender Identity Male 09/13/2021 8:33 PM CDT Sexual Orientation Not on file documented as of this encounter Miscellaneous Notes * Cerner Conversion Note - Ivan Nino MD - 09/06/2018 8:49 AM CDT Patient: AUGUSTO PACHECO Age: 67 years Sex: Male : 1950 Associated Diagnoses: Unstable angina; Recent Pneumonia; Alcohol use 3 beers daily; Severe mitral regurgitation; Nicotine dependence with withdrawal; HLD (hyperlipidemia); HTN (hypertension); Diverticulitis with history of colostomy and recent colostomy reversal; Severe COPD and emphysematous lungs; CAD (coronary artery disease), seneca coronary artery Author: DIOMEDES KLEIN PA Basic [...] has not been on any blood thinners. POD#2 S/P Mitral valve repair using a 30 [...] commands. He is much more calm today. Health Status Allergies: Allergic Reactions (Selected) No Known Allergies Current medications: Fentanyl 100mcg/hr Propofol 20mcg/kg/min Precedex .5mcg/kg/hr Insulin .5U/hr Epi .05mcg/kg/min Objective Intake and Output 24 hour intake: Total 3498 ml 24 hour output: Urinary catheter 1595 ml, Total 2025 ml MT 60ml Bilateral CT 20ml / 12 hours VS/Measurements Vital Measurements 09/06/2018 7:29 EDT Oxygen Saturation 98 % Oxygen Therapy Mode Mechanical ventilation FiO2 50 % 09/06/2018 7:00 EDT Systolic Blood Pressure 111 mmHg Diastolic Blood Pressure 61 mmHg Mean Arterial Pressure (MAP)-BMDI 79 Systolic BP, Arterial Line 1 119 mmHg Diastolic BP, Arterial Line 1 54 mmHg LOW Mean Arterial Pressure, Line 1 70 mmHg Temperature, Celsius 37.1 Deg C Clinical Temperature, F 98.8 Deg F General: Intubated and sedated, following commands. HENT: Normocephalic. Neck: Supple. Respiratory: Respirations are non-labored. Breath sounds: Rhonchi present. Cardiovascular: Normal rate, 79 beats per minute, Regular rhythm, S1, S2, No edema. Gastrointestinal: Soft, Non-tender, Non-distended, Normal bowel sounds. Integumentary: Warm, Dry, [place], Aquacel dressing is C/D/I. Psychiatric: Mood and affect: Calm. Review / Management Results review: SEP 05 03:55 139 109 14 / H 180 4.7 23 0.90 \ SEP 05 03:55 \ L 11.9 / H 15.5 177 / L 35.0 \. Radiology results Radiology Results (Last 48 hours) [id number] -- 09/02/2018 14:21 CR Chest 1 Vw [...] today Continue to wean gtts as tolerated EF 40% per echo [...] Pre-Op Diagnosis, Medical. CAD (coronary artery disease), seneca coronary artery - Admitting, Medical. CAD (coronary artery disease), [place] coronary artery - Discharge, Medical. documented in this encounter Plan of Treatment Upcoming Encounters Date Type Department Care Team (Late st Contact Info) Description 10/27/2024 10:00 AM EDT Appointment [address] [address] [place] [address] [place] [address] [address] [place] [address] 10/29/2024 10:30 AM EDT Audio - Telemedicine [facility] [address] [facility] [address] [place] [address] Adalberto Painting MD [address] [facility] [address] [place] [address] documented as of this encounter Visit Diagnoses Not on filedocumented in this encounter Care Teams Cane Piler Relationship Specialty Start Date End Date Martinez Canseco MD [address] [place] [address] PCP - General Family Medicine 10/05/22 documented as of this encounter
--- OUTSIDE RECORDS SUMMARY | 2024-10-14 15:50 | XMS_ITS | Encounter Summary ---
Author Organization [employer] ([place], [place], [place], [place]) Address [address] [place] [address] Care Team Providers Care Construction Plant Operator Name Role Phone Martinez Canseco MD Primary Care Provider [phone] Encounter Details Date Type Department Care Team (Late st Contact Info) Description 09/07/2018 Transcribed Document [facility] Family Medicine [address] [place] [address] ProviderIvan MD [address], [place] [id number] Social History Tobacco Use Types Packs/Day Years Used Date Smoking Tobacco: Never Assessed Sex and Gender Information Value Date Recorded Sex Assigned at Male 09/13/2021 8:33 PM CDT Legal Sex Male 8:33 PM CDT Gender Identity Male 09/13/2021 8:33 PM CDT Sexual Orientation Not on file documented as of this encounter Miscellaneous Notes * Cerner Conversion Note - Ivan ProviderMD - 09/07/2018 1:29 PM CDT Treatment Intervention, PT Entered On: 09/10/2018 15:44 EDT Performed On: 09/10/2018 15:36 EDT by LEONELA SOUZA PT General Information, PT Visit Type, PT : Treatment Note Patient Orders : Order Date Order Ordering 09/04/2018 22:48 Consult to Physical Therapy Ordered By: ESVIN BUTTS MD-CAT 09/07/2018 13:29 PT Additional Treatment Ordered By: LESLYE BRASHER, PT Active Diagnoses : 09/05/2018 00:00 Atherosclerotic heart disease of [place] coronary artery without angina pectoris 09/05/2018 00:00 Chronic obstructive pulmonary disease, unspecified 09/05/2018 00:00 Diverticulitis of intestine, part unspecified, without perforation or abscess without bleeding 09/05/2018 00:00 Essential (primary) hypertension 09/05/2018 00:00 Hyperlipidemia, unspecified 09/05/2018 00:00 Nicotine dependence unspecified, with withdrawal 09/05/2018 00:00 Nonrheumatic mitral (valve) insufficiency 09/05/2018 00:00 Other specified health status 09/05/2018 00:00 Pneumonia, unspecified organism 09/05/2018 00:00 Unstable angina Admission Date : 09/02/2018 14:21 Co-treated by, PT : Occupational Therapist, lab animal technician/aide Personal Devices : Personal Devices No Devices Recorded Assistive Devices : Assistive Devices No Devices Recorded Precautions in Place : Fall prevention measures LEONELA SOUZA PT - 09/10/2018 15:36 EDT General Status Patient Received Status : Supine in bed Treatment Start Time : 09/10/2018 13:42 EDT Patient Left Status : Up in chair, RN/PCT informed, All needs met and within reach Treatment End Time : 09/10/2018 14:01 EDT Treatment Time : 19 Minute(s) LEONELA SOUZA PT - 09/10/2018 15:36 EDT Intervention Summary O2 Post-Intervention : 8 SpO2 Post-Intervention : 90 % LEONELA SOUZA PT - 09/10/2018 15:36 EDT Therapeutic Activities Therapeutic Activities Comment : assisted to bathroom and then to chair Darion for safety LEONELA SOUZA PT - 09/10/2018 15:36 EDT Functional Mobility Mobility Grid Supine to Sit : Rehab Minimal assistance Sit to Stand : Rehab Minimal assistance Bed to Chair : Rehab Minimal assistance Stand to Sit : Rehab Minimal assistance LEONELA SOUZA PT - 09/10/2018 15:36 EDT Sit to Stand Device : Belt, gait Bed to Chair Device : Belt, gait Stand to Sit Device : Belt, gait LEONELA SOUZA PT - 09/10/2018 15:36 EDT Gait Training/Assessment, PT Gait Assistance Level : Assist, minimal Walking Distance : ~15ft bed to bathroom and then ~20ft bathroom to chair wihtout AD Darion for balance; pt deferred gait due to SOA after sitting on toilet Ambulatory Devices : Gait belt, Walker, front wheel LEONELA SOUZA, PT - 09/10/2018 15:36 EDT Cognitive Treatment, PT Orientation : Oriented x 4 LEONELA SOUZA, PT - 09/10/2018 15:36 EDT Edu Topics Physical Therapy Education Grid Gait Training : Verbalizes understanding, Returns demonstration, Needs reinforcement Transfer Training : Verbalizes understanding, Returns demonstration, Needs reinforcement LEONELA SUOZA, PT - 09/10/2018 15:36 EDT Indication Assesessment, PT Physical Therapy Indicated : Yes LEONELA SOUZA, PT - 09/10/2018 15:36 EDT Plan of Care, PT PT Tx Plan/Goals Established w Patient : Yes LEONELA SOUZA, PT - 09/10/2018 15:36 EDT Short Term Goals Mobility/Bed Mobility STG PT Grid Goal #1 Goal #2 Activity : Supine to sit Sit to stand Assist : Assist, moderate Assist, moderate Equipment : Rail, bed Walker, front wheel Date to Meet : 09/14/2018 EDT 09/14/2018 EDT Goal Status : Goal met Goal met Date Met : 09/08/2018 EDT 09/08/2018 EDT LEONELA SOUZA, PT - 09/10/2018 15:36 EDT LEONELA SOUZA, PT - 09/10/2018 15:36 EDT Ambulation STG Grid Goal #1 Device : Walker, front wheel Distance : 150' Assist : Assist, minimal Date to Meet : 09/14/2018 EDT Goal Status : Progressing, continue LEONELA SOUZA, PT - 09/10/2018 15:36 EDT Halfway Goals Mobility/Bed Mobility LTG PT Grid Goal #1 Goal #2 Activity : Supine to sit Sit to stand Assist : Supervision or set-up Supervision or set-up Equipment : Rail, bed Walker, front wheel Date to Meet : 09/21/2018 EDT 09/21/2018 EDT Goal Status : Progressing, continue Progressing, continue LEONELA SOUZA, PT - 09/10/2018 15:36 EDT LEONELA SOUZA, PT - 09/10/2018 15:36 EDT Ambulation LTG Grid Goal #1 Device : Walker, front wheel Distance : 375' Assist : Supervision or set-up Date to Meet : 09/21/2018 EDT Goal Status : Progressing, continue LEONELA SOUZA, PT - 09/10/2018 15:36 EDT Treatment Note Subjective Comment : pt agreed to PTx Patient's Response to Treatment : Stable Assessment : pt with weakness, limited endurance, impaired functional mobility, and noted increased SOA this session after attempts for toileting for BM; Darion for setup and safety with hand hygiene at sink and pt deferring further gait distances due to SOA; SpO2 measured 90% on 8L NC this session Plan for Treatment : cont PTx POC LEONELA SOUZA PT - 09/10/2018 15:36 EDT Pain Assessment Pain Scaled Used : 0-10 Pain scale Pain Score Pre-Intervention : 0 Location : Chest, midsternal LEONELA SOUZA, PT - 09/10/2018 15:36 EDT Image 1 - Images currently included in the form version of this document have not been included in the text rendition version of the form. Anticipated Discharge Needs, OT/PT Anticipated Discharge to : Unit, rehabilitation Recommend Continued Therapy at Discharge : Yes LEONELA SOUZA PT - 09/10/2018 15:[address] [facility] Charges PT Ther Activities Ea 15 Min : 1 LEONELA SOUZA PT - 09/10/2018 15:36 EDT documented in this encounter Plan of Treatment Upcoming Encounters Date Type Department Care Team (Late st Contact Info) Description 10/27/2024 10:00 AM EDT Appointment [facility] 1 [place] [address] Adalberto Painting MD [address] [place] [address] [address] 10/29/2024 10:30 AM EDT Audio - Telemedicine [facility] [address] [place] [address] [place] [phone] Adalberto Painting MD [address] [place] [address] [address] [place] [address] documented as of this encounter Visit Diagnoses Not on filedocumented in this encounter Care Teams Construction Plant Operator Relationship Specialty Start Date End Date Martinez Canseco MD [address] [place] [address] PCP - General Family Medicine 10/05/22 documented as of this encounter
--- OUTSIDE RECORDS SUMMARY | 2024-10-14 15:50 | XMS_ITS | Encounter Summary ---
Author Organization [employer] ([place], [place], [place], [place]) Address [address] [place] [address] Care Team Providers Care Stock Manager Name Role Phone Martinez Canseco MD Primary Care Provider [phone] Encounter Details Date Type Department Care Team (Late st Contact Info) Description 09/07/2018 Transcribed Document [facility] Family Medicine [address] [place] [address] ProviderIvan MD [address] [place] [address] Social History Tobacco Use Types Packs/Day Years Used Date Smoking Tobacco: Never Assessed Sex and Gender Information Value Date Recorded Sex Assigned at Male 09/13/2021 8:33 PM CDT Legal Sex Male 8:33 PM CDT Gender Identity Male 09/13/2021 8:33 PM CDT Sexual Orientation Not on file documented as of this encounter Miscellaneous Notes * Cerner Conversion Note - Ivan ProviderMD - 09/07/2018 5:00 AM CDT Chart Check - Review Order Profile Entered On: 09/07/2018 4:46 EDT Performed On: 09/07/2018 5:00 EDT by CHUCHO RESTREPO RN Chart Check Powerplans Initiated/Discontinued as Appropriate : Yes All Active Orders Reviewed : Yes CHUCHO RESTREPO RN - 09/07/2018 4:46 EDT Electronically signed by Destiny [facility] Conversion Used Car Make Ready Worker Cerner at 07/05/2022 8:50 PM CDT documented in this encounter Plan of Treatment Upcoming Encounters Date Type Department Care Team (Late st Contact Info) Description 10/27/2024 10:00 AM EDT Appointment [facility] MRI 1 [place] [phone] Adalberto Painting MD [address] [facility] [address] [place] [address] 10/29/2024 10:30 AM EDT Audio - Telemedicine [facility] [address] [place] [address] [address] [place] [phone] Adalberto Painting MD [address] [facility] [address] [place] [address] documented as of this encounter Visit Diagnoses Not on filedocumented in this encounter Care Teams Stock Manager Relationship Specialty Start Date End Date Martinez Canseco MD [address] [place] [address] PCP - General Family Medicine 10/05/22 documented as of this encounter
--- OUTSIDE RECORDS SUMMARY | 2024-10-14 15:50 | XMS_ITS | Encounter Summary ---
Author Organization [employer] ([place], [place], [place], [place]) Address [address] [place] [address] Care Team Providers Care Assistant Corporate Secretary Name Role Phone Martinez Canseco MD Primary Care Provider [phone] Encounter Details Date Type Department Care Team (Late st Contact Info) Description 09/13/2018 Transcribed Document [facility] Family Medicine [address] [place] [address] ProviderIvan MD [address] [place], [place] [address] Social History Tobacco Use Types Packs/Day Years Used Date Smoking Tobacco: Never Assessed Sex and Gender Information Value Date Recorded Sex Assigned at Male 09/13/2021 8:33 PM CDT Legal Sex Male 8:33 PM CDT Gender Identity Male 09/13/2021 8:33 PM CDT Sexual Orientation Not on file documented as of this encounter Miscellaneous Notes * Cerner Conversion Note - Ivan Nino MD - 09/13/2018 8:51 AM CDT Patient: IZABELLA PACHECO Age: 67 years Sex: Male : 1950 Associated Diagnoses: None Author: ANGELINE JAY, ONLINE TUTOR-CTS Admission Date: Discharge Date: Attending:Dr. Kyler Gaxiola, [...] Mitral valve repair using a 30 mm Mogujietronic CG annuloplasty band. 3. Coronary artery bypass [...] medications.Problem list. Objective VS/Measurements Vital Measurements 09/13/2018 8:48 EDT Heart Rate, Apical 97 bpm Heart Rate, Apical 97 bpm 09/13/2018 8:38 EDT Systolic Blood Pressure 111 mmHg Diastolic Blood Pressure 61 mmHg Heart Rate Monitored 88 bpm 09/13/2018 8:37 EDT Oxygen Saturation 92 % LOW Oxygen Therapy Mode Nasal cannula Oxygen Flow Rate 4 Liter/Min General: Alert and oriented. Respiratory: Lungs are clear to auscultation. Cardiovascular: Normal rate, Regular rhythm. Gastrointestinal: Soft, Non-tender, Non-distended. Chest\ RLE incision>> C D I Tolerates PO Voiding Last BM>> 6\\19 Ambulates with assistance ( short distance) Results [...] HI Interpretation: Radiology Results (Last 48 hours) [id number] -- 09/02/2018 14:21 CR Chest 1 Vw [...] above final transcribed report. Carotid U\S ( \\): BILATERAL: < 50% (non flow restricting) stenosis [...] ON HOSPITAL COURSE Admission ( transfer from [facility] 09/03: Carotid duplex and PFTs JESUSITA - moderate to severe MR 09/04: MV repair and CABGx2 09/05: POD#1 Intubated Consult Pulm for vent management Lasix 60mg IV x 1 Wean gtts as tolerated 09/06: POD#2 Hopefully can wean and extubate today Continue to wean gtts as tolerated 09/08: POD # [address] [facility] 09/09: POD #5 Nausea improving Hypotension - hold BB and lisinopril Cr worse today 1.2 (from0.9) - suspected hypoperfusion 09/10: POD # 6 Nausea better today, still decreased appetite Family would like discharge to rehab to [facility] - precert initiated Cr improved today Small [...] early am) Pt has Rehab bed at [facility]), if pt remains in sinus and [...] discharge to rehab today Wean O2 as Tolerates Chest tube site sutures may be anytime after Sunday, Electronically signed by Destiny, [facility] Conversion Circulation Crew Leader Cerner at 07/05/2022 8:41 PM CDT documented in this encounter Plan of Treatment Upcoming Encounters Date Type Department Care Team (Late st Contact Info) Description 10/27/2024 10:00 AM EDT Appointment [facility] MRI 1 [place] [address] Adalberto Painting MD [address] [place] [address] [address] [place] [address] 10/29/2024 10:30 AM EDT Audio - Telemedicine [facility] [address] [place] [address] [address] [place] [phone] Adalberto Painting MD [address] [place] [address] [address] [place] [address] documented as of this encounter Visit Diagnoses Not on filedocumented in this encounter Care Teams Assistant Corporate Secretary Relationship Specialty Start Date End Date Martinez Canseco MD [address] [place] [address] PCP - General Family Medicine 10/05/22 documented as of this encounter
--- OUTSIDE RECORDS SUMMARY | 2024-10-14 15:50 | XMS_ITS | Encounter Summary ---
Author Organization [employer] ([place], [place], [place], [place]) Address [address] [place] [address] Care Team Providers Care Press Operator Carbon Products Name Role Phone Martinez Canseco MD Primary Care Provider [phone] Encounter Details Date Type Department Care Team (Late st Contact Info) Description 09/07/2018 Transcribed Document [facility] [place] [address] [place] [address] ProviderIvan MD [address] [place], [place] [address] Social History Tobacco Use Types Packs/Day Years Used Date Smoking Tobacco: Never Assessed Sex and Gender Information Value Date Recorded Sex Assigned at Male 09/13/2021 8:33 PM CDT Legal Sex Male 8:33 PM CDT Gender Identity Male 09/13/2021 8:33 PM CDT Sexual Orientation Not on file documented as of this encounter Miscellaneous Notes * Cerner Conversion Note - Ivan Nino MD - 09/07/2018 11:29 AM CDT Patient: IZABELLA PACHECO Age: 67 years Sex: Male : 1950 Associated Diagnoses: None Author: FABY LONGO MD Pulmonary Consultation Date of Admission: 09/02/2018 [...] to have MVCAD. He was transferred to [facility] for CTS evaluation. On 09/04, [...] complaints. Not getting much sleep in ICU. Review of Systems Unable to obtain: Due to clinical condition. Health Status Allergies: Allergic Reactions (Selected) No Known Allergies, Allergies (1) Active Reaction No Known Allergies None Documented Current medications: (Selected) Inpatient Medications Ordered ALPRAZolam: 0.25 mg, Oral, TID, PRN: Anxiety Ancef: 2 Gram, 100 mL, 200 mL/Hr, IV Piggyback, PREOP Colace: 100 mg, Oral, BID Dextrose 5% [...] 0.9% for drip 250 mL: TITRATE, IntraVENous Lactated Ringers Injection intravenous solution 1,000 [...] Gram, Oral, Q15Min, PRN: Other (See Comment) insulin lispro sliding scale: Scale C:, SubCutaneous, AC and at Bedtime lidocaine 1% preservative-free injectable solution: 0.5 mL, [...] 25 mg, Oral, Daily, 0 Refill(s), Medications (44) Active Scheduled: (15) #NaCl 0.9% *FLUSH* inj [...] 100 mg 1 Cap, Oral, BID guaiFENesin 200 mg/10 mL liq 100 mg 5 mL, Oral, Q6H insulin lispro 1 unit/0.01 mL inj Scale C:, SubCutaneous, AC and at Bedtime lidocaine 1% *PF* inj 2 mL 0.5 [...] 0.9% TITRATE 100 mL 100 mL, IntraVENous lactated ringers [...] Problems At risk for sleep apnea / 69781647 / Confirmed Cardiomegaly / 64235338 / Confirmed 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 CAD (coronary artery disease) / 27553655 / Confirmed Pulmonary fibrosis / 26829831 / Confirmed History of colostomy reversal / 026954942 / Confirmed History of broken nose / 6381237335 / Confirmed H/O right heart catheterization / [id number] / Confirmed H/O hernia repair / 3487456497 / Confirmed History of tonsillectomy / 6657477017 / Confirmed COPD, moderate / 775513859 / Confirmed Pneumonia / 649012657 / Confirmed Smoker / 896654311 / Confirmed, Active Problems (13) At risk [...] 07:33) 82 (SEP 07 07:33) Mon HR 91 (SEP 07 11:00) 76 (SEP 07 08:00) 100 (SEP 06 20:00) Resp Rate 18 (SEP 07 04:32) 16 (SEP 06 14:00) H 25 (SEP 06 12:00) SBP 123 (SEP 07 11:00) L 87 (SEP 06 20:00) 137 (SEP 06 14:00) DBP 72 (SEP 07 11:00) L 50 (SEP 06 23:00) 72 (SEP 07 11:00) MAP 92 (SEP 07 11:00) 6 (SEP 06 18:00) 106 (SEP 06 17:00) SpO2 95 (SEP 07 11:00) L 87 (SEP 07 00:00) 99 (SEP 06 16:29) Intake & Output Totals Last 24 Hours (7a-7a) Intake (79 Events) Continuous Infusions (850.63 mL) Medications (34 mL) Oral Intake (1260 mL) Output (23 Events) Chest Tube Output: (150 mL) Chowdary Catheter (1010 mL) Input Total: 2144.63 mL Output Total: 1160 mL Balance: 984.63 mL General: Alert and oriented, No acute distress, 4LNC. Eye: Pupils are equal, round and reactive to light, Normal conjunctiva. HENT: Normocephalic. Neck: Supple, Non-tender, No lymphadenopathy. Respiratory: Respirations are non-labored. Cardiovascular: Normal rate, Good pulses equal in all extremities. Gastrointestinal: Soft, Non-tender, Non-distended, Normal bowel sounds. Musculoskeletal: No deformity. Integumentary: Warm, Dry, No rash. Neurologic: Alert, Oriented, No focal deficits, sedated on vent. Review / Management Results review: Labs (Last four charted values) WBC H 10.5 (SEP 07) H 12.9 (SEP 06) H 15.5 (SEP 05) H 12.0 (SEP 04) HB L 8.9 (SEP 07) L 10.0 (CAYETANO 21) L 10.2 (CAYETANO 20) L 11.9 (CAYETANO 20) HCT L 26.8 (CAYETANO 22) L 30.0 (CAYETANO 21) L 30.4 (CAYETANO 20) L 35.0 (CAYETANO 20) Plt L 123 (CAYETANO 22) L 137 (CAYETANO 21) 177 (CAYET[place]O 20) L 147 (CAYETANO 19) Na 140 (CAYETANO 22) 141 (CAYETANO 21) 139 (CAYET[place]O 20) 141 (CAYETANO 19) K 4.2 (CAYETANO 22) 4.4 (CAYETANO 21) 4.0 (CAYETANO 20) 4.7 (CAYETANO 20) Cl 107 (CAYETANO 22) 110 (CAYETANO 21) 109 (CAYETANO 20) 110 (CAYETANO 19) CO2 29 (CAYETANO 22) 27 (CAYETANO 21) 23 (CAYETANO 20) 26 (CAYETANO 19) BUN 19 (CAYETANO 22) 12 (CAYETANO 21) 14 (CAYETANO 20) 13 (CAYETANO 19) Cr 0.80 (CAYET[place]O 22) 0.80 (CAYET[place]O 21) 0.90 (CAYETANO 20) 0.90 (CAYET[place]O 19) Glu R H 134 (CAYET[place]O 22) H 169 (CAYET[place]O 21) H 180 (CAYETANO 20) H 131 (CAYETANO 19) Ca 9.3 (CAYET[place]O 22) 8.8 (CAYET[place]O 21) 8.4 ([place]YET[place]O 20) 8.5 (CAYET[place]O 19) PT 10.5 ([place]YET[place]O 21) 10.7 ([place]YET[place]O 18) [...] 17) . Radiology Results (Last 48 hours) [id number] -- 09/02/2018 14:21 CR Chest 1 Vw Portable (09/06/2018 04:20) [...] transcribed report. CR Chest 1 Vw Portable (09/07/2018 04:05) Result: PORTABLE CHESTHISTORY: Pleural effusion and shortness of air.COMPARISON: 09/06/2018.FINDINGS: The heart is normal in size . The mediastinum isunremarkable . There has been interval extubation. There is increasingbibasilar atelectasis. Small bilateral pleural effusions are identified.Aside from the endotracheal tube removal, the remaining support devicesare stable. There is no pneumothorax .IMPRESSION: Post extubation and increasing atelectasis.Films reviewed, interpreted, and dictated by Dr. Andrea Porter. Transcribed by Ruth Ann Ulrich have personally viewed, interpreted and dictated the examination. Iheric read and agree with the above final transcribed report. DATE OF STUDY: 09/02/2018 Race: . Height: [...] Cr/BUN 5. GI -NPO 6. DVT/GI Plan Titrate o2. Sat > 92% IS/FVD Hemodynamic Support per CTS Protocol keep map> 65 Glycemic Control per CTS protocol Mucinex Duonebs Q6 and prn Pepcid/Startt DVT prophylaxis when ok with CTS Glycemic control as per CTS protcol Prognosis : guarded Code : full Okay for transfer to tele per pulm standpoint. Will sign off. Please call if needed documented in this encounter Plan of Treatment Upcoming Encounters Date Type Department Care Team (Late st Contact Info) Description 10/27/2024 10:00 AM EDT Appointment [facility] 1 [place] [phone] Adalberto Painting MD [address] [place] [address] [address] 10/29/2024 10:30 AM EDT Audio - Telemedicine [facility] [address] [place] [address] [address] [place] [phone] Adalberto Painting MD [address] [place] [address] [address] [place] [address] documented as of this encounter Visit Diagnoses Not on filedocumented in this encounter Care Teams Press Operator Carbon Products Relationship Specialty Start Date End Date Martinez Canseco MD [address] [place] [address] PCP - General Family Medicine 10/05/22 documented as of this encounter
--- OUTSIDE RECORDS SUMMARY | 2024-10-14 15:50 | XMS_ITS | Encounter Summary ---
Author Organization [employer] ([place], [place], [place], [place]) Address [address] [place] [address] Care Team Providers Care Truck Crane Operator Helper Name Role Phone Martinez Canseco MD Primary Care Provider [phone] Encounter Details Date Type Department Care Team (Late st Contact Info) Description 09/08/2018 Transcribed Document [facility] [place] Family Medicine [address] [place] [address] ProviderIvan MD [address] [place] [address] Social History Tobacco Use Types Packs/Day Years Used Date Smoking Tobacco: Never Assessed Sex and Gender Information Value Date Recorded Sex Assigned at Male 09/13/2021 8:33 PM CDT Legal Sex Male 8:33 PM CDT Gender Identity Male 09/13/2021 8:33 PM CDT Sexual Orientation Not on file documented as of this encounter Miscellaneous Notes * Cerner Conversion Note - Ivan ProviderMD - 09/08/2018 5:00 AM CDT Chart Check - Review Order Profile Entered On: 09/08/2018 4:37 EDT Performed On: 09/08/2018 5:00 EDT by CHUCHO RESTREPO RN Chart Check Powerplans Initiated/Discontinued as Appropriate : Yes All Active Orders Reviewed : Yes CHUCHO RESTREPO RN - 09/08/2018 4:37 EDT Electronically signed by Destiny [facility] Conversion Decorating Supervisor Cerner at 07/05/2022 8:35 PM CDT documented in this encounter Plan of Treatment Upcoming Encounters Date Type Department Care Team (Late st Contact Info) Description 10/27/2024 10:00 AM EDT Appointment [facility] MRI 1 [place] [phone] Adalberto Painting MD [address] [facility] [address] [place] [address] 10/29/2024 10:30 AM EDT Audio - Telemedicine [facility] [address] [place] [address] [address] [place] [phone] Adalberto Painting MD [address] [facility] [address] [place] [address] documented as of this encounter Visit Diagnoses Not on filedocumented in this encounter Care Teams Truck Crane Operator Helper Relationship Specialty Start Date End Date Martinez Canseco MD [address] [place] [address] PCP - General Family Medicine 10/05/22 documented as of this encounter
--- OUTSIDE RECORDS SUMMARY | 2024-10-14 15:50 | XMS_ITS | Encounter Summary ---
Author Organization [employer] ([place], [place], [place], [place]) Address [address] [place] [address] Care Team Providers Care Selector Packer Name Role Phone Martinez Canseco MD Primary Care Provider [phone] Encounter Details Date Type Department Care Team (Late st Contact Info) Description 09/07/2018 Transcribed Document [facility] Family Medicine [address] [place] [address] ProviderIvan MD [address] [place], [place] [id number] Social History Tobacco Use Types Packs/Day Years Used Date Smoking Tobacco: Never Assessed Sex and Gender Information Value Date Recorded Sex Assigned at Male 09/13/2021 8:33 PM CDT Legal Sex Male 8:33 PM CDT Gender Identity Male 09/13/2021 8:33 PM CDT Sexual Orientation Not on file documented as of this encounter Miscellaneous Notes * Cerner Conversion Note - Ivan ProviderMD - 09/07/2018 12:27 PM CDT Treatment Intervention, OT Entered On: 09/12/2018 14:58 EDT Performed On: 09/12/2018 14:05 EDT by PARK SOLIZ COTA General Information, OT Visit Type, OT : Treatment Note Patient Orders : Order Date Order Ordering 09/06/2018 14:09 OT Evaluation and Treatment Ordered By: ESVIN BUTTS MD-CAT 09/07/2018 12:27 OT Additional Treatment Ordered By: Active Diagnoses : 09/05/2018 00:00 Atherosclerotic heart disease of [place] coronary artery without angina pectoris 09/05/2018 00:00 [...] Admission Date : 09/02/2018 14:21 Co-treated by, OT : Physical Therapist Personal Devices : Personal Devices No Devices Recorded Assistive Devices : Assistive Devices No Devices Recorded Precautions in Place : Fall prevention measures PARK SOLIZ COTA - 09/12/2018 14:52 EDT General Status Patient Received Status : Up in chair Treatment Start Time : 09/12/2018 13:48 EDT Patient Left Status : Supine in bed, RN/PCT informed, All needs met and within reach Treatment End Time : 09/12/2018 14:05 EDT Treatment Time : 17 Minute(s) PARK SOLIZ COTA - 09/12/2018 14:52 EDT Functional Mobility Mobility Grid Sit to Stand : Rehab Modified independence Stand to Sit : Rehab Modified independence Sit to Supine : Rehab Modified independence PARK SOLIZ COTA - 09/12/2018 14:52 EDT Plan of Care, OT OT Tx Plan/Goals Established w Patient : Yes PARK SOLIZ COTA - 09/12/2018 14:52 EDT Laboratory Technologist Goals, OT Grooming LTG Grid Goal #1 Activity : Grooming Assist : Independent, modified Date to Meet : 09/21/2018 EDT Goal Status : Progressing, continue PARK SOLIZ COTA - 09/12/2018 14:52 EDT Bathing LTG Grid Goal #1 Activity : Bathing Assist : Independent, modified Date to Meet : 09/21/2018 EDT Goal Status : Progressing, continue PARK SOLIZ COTA - 09/12/2018 14:52 EDT Dressing, Lower Body LTG Grid Goal #1 Activity : Dressing, Lower Body Assist : Independent, modified Date to Meet : 09/21/2018 EDT Goal Status : Progressing, continue PARK SOLIZ COTA [place] 09/12/2018 14:52 EDT Toileting LTG Grid Goal #1 Activity : Toileting Assist : Independent, modified Date to Meet : 09/21/2018 EDT Goal Status : Goal met Date Met : 09/10/2018 EDT PARK SOLIZ COTA [place] 09/12/2018 14:52 EDT Toilet Transfer LTG Grid Goal #1 Activity : Toilet Transfer, Ambulatory Assist : Independent, modified Date to Meet : 09/21/2018 EDT Goal Status : Goal met Date Met : 09/12/2018 EDT PARK SOLIZ COTA [place] 09/12/2018 14:52 EDT Bed Mobility/ Bed Transfer LTG Grid Goal #1 Activity : Bed Mobility/Bed Transfer Assist : Independent, modified Date to Meet : 09/21/2018 EDT Goal Status : Goal met Date Met : 09/10/2018 EDT PARK SOLIZ COTA [place] 09/12/2018 14:52 EDT Treatment Note Subjective Comment : EDUARDO Arnett okd session Patient's Response to Treatment : Client zeb well. Asymptomatic at times Additional Objective Information : Client was up in recliner. BP below normal this date. 4lpm nc. Client stood with gaitbelt and RW at OH. Walked to waiting area and sat. Client desat 78%. Required 4 mins to return to 90%. Client walked back to room. Sat EOB. Desat to 78%. Client OH to supine. HOB elevated. O2 increase to 92%. CL in place. Assessment : met transfer goal Plan for Treatment : cotninue with POC PARK SOLIZ COTA - 09/12/2018 14:52 EDT Pain Assessment Pain Scaled Used : 0-10 Pain scale Pain Score Pre-Intervention : 0 PARK SOLIZ COTA [place] 09/12/2018 14:52 EDT Image 1 - Images currently included in the form version of this document have not been included in the text rendition version of the form. Anticipated Discharge Needs, OT/PT Anticipated Discharge to : Unit, rehabilitation PARK SOLIZ COTA [place] 09/12/2018 14:[address] [facility] OT Charges OT Selfcare/Hm Mgmt Ea 15 Min : 1 PARK SOLIZ CLAUDETTE Das 09/12/2018 14:52 EDT documented in this encounter Plan of Treatment Upcoming Encounters Date Type Department Care Team (Late st Contact Info) Description 10/27/2024 10:00 AM EDT Appointment [facility] MRI 1 [place] [address] Adalberto Painting MD [address] [place] [address] [address] [place] [address] 10/29/2024 10:30 AM EDT Audio - Telemedicine [facility] [address] [place] [address] [place] [phone] Adalberto Painting MD [address] [place] [address] [address] [place] [address] documented as of this encounter Visit Diagnoses Not on filedocumented in this encounter Care Teams Selector Packer Relationship Specialty Start Date End Date Martinez Canseco MD [address] [place] [address] PCP - General Family Medicine 10/05/22 documented as of this encounter
--- OUTSIDE RECORDS SUMMARY | 2024-10-14 15:50 | XMS_ITS | Encounter Summary ---
Author Organization [employer] ([place], [place], [place], [place]) Address [address] [place] [address] Care Team Providers Care Health And Safety Inspector Name Role Phone Martinez Canseco MD Primary Care Provider [phone] Encounter Details Date Type Department Care Team (Late st Contact Info) Description 09/13/2018 Transcribed Document [facility] Family Medicine [address] [place] [address] ProviderIvan MD [address] [place] [address] Social History Tobacco Use Types [...] Nino MD - 09/13/2018 12:32 PM CDT Clarissa Soto M.D. [address] [place] [address] [place] [address] Re: AUGUSTO PACHECO Date of Visit: 09/02/2018 Dear Clarissa Soto Thank you for allowing Dr. Urias to participate in your patient's care. Please see the accompanying information that I would like to share with you regarding your patient. This Document is confidental and intended solely for the use of the individual or entity to which it is addressed. If you are not the named addresssee, please disregard and do not disseminate, distribute or copy this information. If you are the intended recipient any disclosure of this information and its contents is strictly prohibited. Sincerely, ANGELINE JAY [address] [place] [id number] The following document(s) were included in the letter: September 13, 2018 11:55:00 EDT - (09/13/2018) DISCHARGE SUMMARY documented in this encounter Plan of Treatment Upcoming Encounters Date Type Department Care Team (Late st Contact Info) Description 10/27/2024 10:00 AM EDT Appointment [facility] MRI 1 [place] [phone] Adalberto Painting MD [address] [place] [address] [address] [place] [address] 10/29/2024 10:30 AM EDT Audio - Telemedicine [facility] [address] [place] [address] [address] [place] [phone] [place] [address] [place] [address] [address] [place] [address] documented as of this encounter Visit Diagnoses Not on filedocumented in this encounter Care Teams Health And Safety Inspector Relationship Specialty Start Date End Date Martinez Canseco MD [address] [place] [address] PCP - General Family Medicine 10/05/22 documented as of this encounter
--- OUTSIDE RECORDS SUMMARY | 2024-10-14 15:50 | XMS_ITS | Encounter Summary ---
Author Organization [employer] ([place], [place], [place], [place]) Address [address] [place] [address] Care Team Providers Care Cardiac Exercise Physiologist Name Role Phone Martinez Canseco MD Primary Care Provider [phone] Encounter Details Date Type Department Care Team (Late st Contact Info) Description 09/10/2018 Transcribed Document [facility] [place] [address] [place] [address] ProviderIvan MD [address] [place], [place] [address] Social History Tobacco Use Types Packs/Day Years Used Date Smoking Tobacco: Never Assessed Sex and Gender Information Value Date Recorded Sex Assigned at Male 09/13/2021 8:33 PM CDT Legal Sex Male 8:33 PM CDT Gender Identity Male 09/13/2021 8:33 PM CDT Sexual Orientation Not on file documented as of this encounter Miscellaneous Notes * Cerner Conversion Note - Ivan ProviderMD - 09/10/2018 5:00 AM CDT Height and Weight, Routine Entered On: 09/10/2018 4:17 EDT Performed On: 09/10/2018 5:00 EDT by Blaine Miranda Care Asst-Health Unit Coord Height and Weight, Routine Routine Weight Source : Bed scale Routine Weight Entry Format : Crosby Routine Weight, Pounds : 226 lb Routine Weight, Ounces : 6 oz Routine Weight Calculation : 102.9 kg Height Source : Stated Height Entry Format : Crosby Height, Feet : 6 ft Height, Inches : 1 Inch Clinical Height : 185.42 cm Body Surface Area (BSA), Routine : 2.27 m2 Body Mass Index (BMI), Routine : 29.93 kg/m2 Blaine Miranda Care Asst-Health Unit Coord - 09/10/2018 4:17 EDT Electronically signed by Destiny, [facility] Conversion Hr Generalist Cerner at 07/05/2022 8:49 PM CDT documented in this encounter Plan of Treatment Upcoming Encounters Date Type Department Care Team (Late st Contact Info) Description 10/27/2024 10:00 AM EDT Appointment [facility] 1 [place] [phone] Adalberto Painting MD [address] [place] [address] [address] [place] [address] 10/29/2024 10:30 AM EDT Audio - Telemedicine [facility] [address] [place] [address] [place] [phone] Adalberto Painting MD [address] [place] [address] [address] [place] [address] documented as of this encounter Visit Diagnoses Not on filedocumented in this encounter Care Teams Cardiac Exercise Physiologist Relationship Specialty Start Date End Date Martinez Canseco MD [address] [place] [address] PCP - General Family Medicine 10/05/22 documented as of this encounter
--- OUTSIDE RECORDS SUMMARY | 2024-10-14 15:50 | XMS_ITS | Encounter Summary ---
Author Organization [employer] ([place], [place], [place], [place]) Address [address] [place] [address] Care Team Providers Care Tool Programmer Name Role Phone Martinez Canseco MD Primary Care Provider [phone] Encounter Details Date Type Department Care Team (Late st Contact Info) Description 09/06/2018 Transcribed Document [facility] Family Medicine [address] [place] [address] ProviderIvan MD [address] [place], [place] [address] Social History Tobacco Use Types Packs/Day Years Used Date Smoking Tobacco: Never Assessed Sex and Gender Information Value Date Recorded Sex Assigned at Male 09/13/2021 8:33 PM CDT Legal Sex Male 8:33 PM CDT Gender Identity Male 09/13/2021 8:33 PM CDT Sexual Orientation Not on file documented as of this encounter Miscellaneous Notes * Cerner Conversion Note - Historical ProviderMD - 09/06/2018 2:09 PM CDT Evaluation, Occupational Therapy Entered On: 09/07/2018 11:07 EDT Performed On: 09/07/2018 10:59 EDT by OLIVER WOO OTR/Goran General Information, OT Therapy Diagnosis, OT : decreased independence with ADLs due to weakness Onset of Problem, OT : 09/02/2018 EDT Co-treated by, OT : Physical Therapist General Information Comment, OT : Diagnosis: MVR, CABG x 2 09/04 OLIVER WOO OTR/Goran - 09/07/2018 12:21 EDT Visit Type, OT : Initial evaluation Patient Orders : Order Date Order Ordering MD 09/06/2018 14:09 OT Evaluation and Treatment Ordered By: ESVIN BUTTS MD-CAT Active Diagnoses : 09/05/2018 00:00 Atherosclerotic heart disease of [place] coronary artery without angina pectoris 09/05/2018 00:00 [...] Unstable angina Admission Date : 09/02/2018 14:21 Personal Devices : Personal Devices No Devices Recorded Assistive Devices : Assistive Devices No Devices Recorded OLIVER WOO OTR/L - 09/07/2018 11:07 EDT General Status Patient Received Status : Supine in bed Treatment Start Time : 09/07/2018 10:48 EDT Patient Left Status : Up in chair, RN/PCT informed, All needs met and within reach Treatment End Time : 09/07/2018 10:59 EDT Treatment Time : 11 Minute(s) OLIVER WOO OTR/L - 09/07/2018 12:21 EDT History and Environment, OT Living Situation, Therapy : Home Patient Lives With : Alone Persons Assisting Patient at Home : Alone Home Equipment, Therapy : None Home Setup : One story Stairs : Yes Stair Location(s) : Outside Outside Stairs, Number of Steps : 1 OLIVER WOO OTR/L - 09/07/2018 12:21 EDT Prior LOF Bathing, OT : Independent Prior LOF Bed Mobility : Independent Prior LOF Upper Body Dressing, OT : Independent Prior LOF Lower Body Dressing, OT : Independent Prior LOF Toileting : Independent Prior LOF Transfer : Independent Prior LOF Grooming, OT : Independent Prior LOF for IADLs, OT : Independent OLIVER WOO OTR/L - 09/07/2018 12:21 EDT Upper Extremity Right UE Active ROM : WFL Left UE Active ROM : WFL OLIVER WOO OTR/Goran - 09/07/2018 12:21 EDT RadialDeviation 0-20 Shoulder Flexion 0-180 : 3-/fair Shoulder Extension 0-60 : 3-/fair Shoulder Abduction 0-180 : 3-/fair Shoulder Adduction 0-180 : 3-/fair Shoulder Internal Rotation 0-90 : 3-/fair Shoulder External Rotation 0-90 : 3-/fair Elbow Flexion 0-150 : 3-/fair Elbow Extension 0-0 : 3-/fair Wrist Flexion 0-80 : 3-/fair Wrist Extension 0-70 : 3-/fair Forearm Pronation 0-70 : 3-/fair Forearm Supination 0-85 : 3-/fair Ulnar Deviation 0-45 : 3-/fair RadialDeviation 0-20 : 3-/fair OLIVER WOO OTR/Goran - 09/07/2018 12:21 EDT RadialDeviation 0-20 LUE Shoulder Flexion 0-180 : 3-/fair Shoulder Extension 0-60 : 3-/fair Shoulder Abduction 0-180 : 3-/fair Shoulder Adduction 0-180 : 3-/fair Shoulder Internal Rotation 0-90 : 3-/fair Shoulder External Rotation 0-90 : 3-/fair Elbow Flexion 0-150 : 3-/fair Elbow Extension 0-0 : 3-/fair Wrist Flexion 0-80 : 3-/fair Wrist Extension 0-70 : 3-/fair Forearm Pronation 0-70 : 3-/fair Forearm Supination 0-85 : 3-/fair Ulnar Deviation 0-45 : 3-/fair RadialDeviation 0-20 : 3-/fair OLIVER WOO OTR/Goran - 09/07/2018 12:21 EDT Self Care/Home Management, OT Self Feeding Assist Level, OT : Supervision or set-up Grooming Assist Level, OT : Assist, minimal Bathing Assist Level, OT : Assist, moderate Upper Body Dressing Assist Level, OT : Assist, minimal Lower Body Dressing Assist Level, OT : Assist, maximal Toileting Assist Level : Assist, maximal OLIVER WOO OTR/Goran Das 09/07/2018 12:21 EDT Functional Mobility Mobility Grid Supine to Sit : Rehab Moderate assistance Sit to Stand : Rehab Moderate assistance Bed to Chair : Rehab Moderate assistance Stand to Sit : Rehab Moderate assistance OLVIER WOO OTR/Goran - 09/07/2018 12:21 EDT Cognition Assessment, OT Orientation : Oriented x 4 OLIVER WOO OTR/Goran - 09/07/2018 12:21 EDT Indication Assessment, OT Occupational Therapy Indicated : Yes Problem List, OT : Impaired, bed mobility, Impaired, activities daily living, Impaired functional mobility Potential Barriers, OT : None evident Rehabilitation Potential, OT : Good OLIVER WOO OTR/Goran - 09/07/2018 12:21 EDT Plan of Care, OT OT Tx Plan/Goals Established w Patient : Yes OT Frequency Rehab : Five days per week OT Duration Rehab : Fourteen days OT Treatments Planned : Activities of daily living, Functional mobility training, Therapeutic activities OLIVER WOO OTR/Goran - 09/07/2018 12:21 EDT Fpc Goals, OT Grooming LTG Grid Goal #1 Activity : Grooming Assist : Independent, modified Date to Meet : 09/21/2018 EDT Goal Status : Initial goal OLIVER WOO OTR/Goran - 09/07/2018 12:21 EDT Bathing LTG Grid Goal #1 Activity : Bathing Assist : Independent, modified Date to Meet : 09/21/2018 EDT Goal Status : Initial goal OLIVER WOO OTR/Goran - 09/07/2018 12:21 EDT Dressing, Lower Body LTG Grid Goal #1 Activity : Dressing, Lower Body Assist : Independent, modified Date to Meet : 09/21/2018 EDT Goal Status : Initial goal OLIVER WOO OTR/Goran - 09/07/2018 12:21 EDT Toileting LTG Grid Goal #1 Activity : Toileting Assist : Independent, modified Date to Meet : 09/21/2018 EDT Goal Status : Initial goal OLIVER WOO OTR/Goran - 09/07/2018 12:21 EDT Toilet Transfer LTG Grid Goal #1 Activity : Toilet Transfer, Ambulatory Assist : Independent, modified Date to Meet : 09/21/2018 EDT Goal Status : Initial goal OLIVER WOO OTR/Goran - 09/07/2018 12:21 EDT Bed Mobility/ Bed Transfer LTG Grid Goal #1 Activity : Bed Mobility/Bed Transfer Assist : Independent, modified Date to Meet : 09/21/2018 EDT Goal Status : Initial goal AMNAMIN BLOUNTHAFSA OTR/L - 09/07/2018 12:21 EDT Treatment Note Subjective Comment : Pt agreeable Patient's Response to Treatment : Pt tolerated evaluation well Additional Objective Information : Pt supine upon arrival. Pt mod A supine to sit. Pt sat EOB for ROM and MMT at EOB. Pt mod A (2 ppl) to transfer to chair. Pt left in chair with needs met and CL in reach. Assessment : Pt will benefit from OT services during hospital admission Plan for Treatment : See goals AMNAOLIVER OTR/Goran - 09/07/2018 12:21 EDT Pain Assessment Pain Score Pre-Intervention : 0 OLIVER WOO OTR/Goran - 09/07/2018 12:21 EDT Image 1 - Images currently included in the form version of this document have not been included in the text rendition version of the form. [facility] OT Charges OT Eval Moderate Complexity : 1 OLIVER WOO OTR/Goran - 09/07/2018 12:21 EDT documented in this encounter Plan of Treatment Upcoming Encounters Date Type Department Care Team (Late st Contact Info) Description 10/27/2024 10:00 AM EDT Appointment [facility] 1 [place] [phone] Adalberto Painting MD [address] [place] [address] [address] 10/29/2024 10:30 AM EDT Audio - Telemedicine [facility] [address] [place] [address] [address] [place] [address] [place] [address] [place] [address] [address] [place] [address] documented as of this encounter Visit Diagnoses Not on filedocumented in this encounter Care Teams Tool Programmer Relationship Specialty Start Date End Date Martinez Canseco MD [address] [place] [address] PCP - General Family Medicine 10/05/22 documented as of this encounter
--- OUTSIDE RECORDS SUMMARY | 2024-10-14 15:50 | XMS_ITS | Encounter Summary ---
Author Organization [employer] ([place], [place], [place], [place]) Address [address] [place] [address] Care Team Providers Care Gauge And Weigh Machine Adjuster Name Role Phone Martinez Canseco MD Primary Care Provider [phone] Encounter Details Date Type Department Care Team (Late st Contact Info) Description 09/09/2018 Transcribed Document [facility] Family Medicine [address] [place] [address] ProviderIvan MD [address] [place], [place] [address] Social History Tobacco Use Types Packs/Day Years Used Date Smoking Tobacco: Never Assessed Sex and Gender Information Value Date Recorded Sex Assigned at Male 09/13/2021 8:33 PM CDT Legal Sex Male 8:33 PM CDT Gender Identity Male 09/13/2021 8:33 PM CDT Sexual Orientation Not on file documented as of this encounter Miscellaneous Notes * Cerner Conversion Note - Historical ProviderMD - 09/09/2018 3:10 AM CDT Sepsis Screening Tool Entered On: 09/09/2018 5:02 EDT Performed On: 09/09/2018 3:10 EDT by Lisa Velazquez Rn-Resource Provider Notification Provider Notified of Concerns/Results : SIRS/Sepsis Alert Provider Notified of : Nurse concerns Provider Response : No new orders Results to Provider Comment : pt vagal during BM, asymptomatic. MD notified, no new orders Lisa Velazquez Rn-Resource - 09/09/2018 4:59 EDT Electronically signed by Destiny [facility] Conversion Plate Molder Cerner at 07/05/2022 8:52 PM CDT documented in this encounter Plan of Treatment Upcoming Encounters Date Type Department Care Team (Late st Contact Info) Description 10/27/2024 10:00 AM EDT Appointment [facility] [address] [place] [address] [place] [address] [place] [address] [address] [place] [address] 10/29/2024 10:30 AM EDT Audio - Telemedicine [facility] [address] [place] [address] [address] [place] [address] [place] [address] [place] [address] [address] [place] [phone] documented as of this encounter Visit Diagnoses Not on filedocumented in this encounter Care Teams Gauge And Weigh Machine Adjuster Relationship Specialty Start Date End Date Martinez Canseco MD [address] [place] [address] PCP - General Family Medicine 10/05/22 documented as of this encounter
--- OUTSIDE RECORDS SUMMARY | 2024-10-14 15:50 | XMS_ITS | Encounter Summary ---
Author Organization [employer] ([place], [place], [place], [place]) Address [address] [place] [address] Care Team Providers Care Drum Stenciler Name Role Phone Martinez Canseco MD Primary Care Provider [phone] Encounter Details Date Type Department Care Team (Late st Contact Info) Description 09/06/2018 Transcribed Document [facility] [address] [place] [address] ProviderIvan MD [address] [place], [place] [address] Social History Tobacco Use Types Packs/Day Years Used Date Smoking Tobacco: Never Assessed Sex and Gender Information Value Date Recorded Sex Assigned at Male 09/13/2021 8:33 PM CDT Legal Sex Male 8:33 PM CDT Gender Identity Male 09/13/2021 8:33 PM CDT Sexual Orientation Not on file documented as of this encounter Miscellaneous Notes * Cerner Conversion Note - Ivan Nino MD - 09/06/2018 2:38 PM CDT On Going Discharge Planning Entered On: 09/06/2018 14:39 EDT Performed On: 09/06/2018 14:38 EDT by JARET BAUM Rn-Wool Batting WorkerHydraulic Plumber Helper Progress Note Discharge Arrangements : Patient Post-Acute Information Patient Name: AUGUSTO PACHECO Gender: Male : [birth year] Age: 67 Years No Post-Acute Placement(s) Listed No Post-Acute Service(s) Listed No [place] Referral(s) Listed Discharge Options Discussed with Patient : DME, Home Health Does the Patient have a Floor to SNF Benefit? : Yes Is the Patient Meeting Medical Necessity : Yes JARET BAUM, Rn-Wool Batting Worker - 09/06/2018 14:38 EDT Narrative Progress Note Narrative Progress Note : Day 4 - Confirmed with patient he is willing to participate with OP Cardiac Rehab - choiced [facility] - ref placed thru [facility]. Patient is willing to consider STR at [facility] in [place], [place] if recommended by PT/OT. JARET BAUM, Rn-Wool Batting Worker - 09/06/2018 14:38 EDT Electronically signed by Destiny [facility] Conversion Supervisor Ticket Sales Cerner at 07/05/2022 8:33 PM CDT documented in this encounter Plan of Treatment Upcoming Encounters Date Type Department Care Team (Late st Contact Info) Description 10/27/2024 10:00 AM EDT Appointment [facility] [place] [address] [place] [address] Adalberto Painting MD [address] [place] [address] [address] [place] [address] 10/29/2024 10:30 AM EDT Audio - Telemedicine [facility] [address] [place] [address] [place] [phone] Adalberto Painting MD [address] [place] [address] [address] [place] [address] documented as of this encounter Visit Diagnoses Not on filedocumented in this encounter Care Teams Drum Stenciler Relationship Specialty Start Date End Date Martinez Canseco MD [address] [place] [address] PCP - General Family Medicine 10/05/22 documented as of this encounter
--- OUTSIDE RECORDS SUMMARY | 2024-10-14 15:50 | XMS_ITS | Encounter Summary ---
Author Organization [employer] ([place], [place], [place], [place]) Address [address] [place] [address] Care Team Providers Care Merchandise Buyer Name Role Phone Martinez Canseco MD Primary Care Provider [phone] Encounter Details Date Type Department Care Team (Late st Contact Info) Description 09/11/2018 Transcribed Document [facility] [place] Family Medicine [address] [place] [address] ProviderIvan MD [address] [place] [address] Social History Tobacco Use Types [...] Ivan ProviderMD - 09/11/2018 8:29 AM CDT [facility] Endo PACU Summary Primary Physician: ARLETTE DE JESUS MD Finalized Date/Time: 09/11/18 09:25:20 Pt. Name: AUGUSTO PACHECO/Sex: 1950 Male Med Rec #: [id number] Physician: ESVIN BUTTS MD-CAT Financial #: [id number] Pt. Type: I Room/Bed: [facility]/1 Admit/Disch: 09/02/18 14:21:00 - Institution: [facility] Endo PACU Case Times Entry 1 In PACU I 09/11/18 08:45:00 Ready for PACU 09/11/18 09:25:00 Discharge Discharge from PACU 09/11/18 09:25:00 I Last Modified By: Zahra Bedoya Rn 09/11/18 09:25:17 Finalized By: Zahra Bedoya, Rn Document Signatures Signed By: Zahra Bedoya Rn 09/11/18 09:25 Electronically signed by Destiny [facility] Conversion Hot Strip Mill Supervisor Cerner at 07/05/2022 8:32 PM CDT documented in this encounter Plan of Treatment Upcoming Encounters Date Type Department Care Team (Late st Contact Info) Description 10/27/2024 10:00 AM EDT Appointment [facility] 1 [place] [phone] Adalberto Painting MD [address] [place] [address] [place] [address] 10/29/2024 10:30 AM EDT Audio - Telemedicine [facility] [address] [place] [address] [place] [phone] [place] [address] [place] [address] [address] [place] [address] documented as of this encounter Visit Diagnoses Not on filedocumented in this encounter Care Teams Merchandise Buyer Relationship Specialty Start Date End Date Martinez Canseco MD [address] [place] [address] PCP - General Family Medicine 10/05/22 documented as of this encounter
--- OUTSIDE RECORDS SUMMARY | 2024-10-14 15:51 | XMS_ITS | Encounter Summary ---
Author Organization [employer] ([place], [place], [place], [place]) Address [address] [place] [address] Care Team Providers Care Chief Drafter Name Role Phone Martinez Canseco MD Primary Care Provider [phone] Encounter Details Date Type Department Care Team (Late st Contact Info) Description 09/09/[address] [facility] [place] Family Medicine [address] [place] [address] ProviderIvan MD [address] [place], [place] [address] Social History Tobacco Use Types Packs/Day Years Used Date Smoking Tobacco: Never Assessed Sex and Gender Information Value Date Recorded Sex Assigned at Male 09/13/2021 8:33 PM CDT Legal Sex Male 8:33 PM CDT Gender Identity Male 09/13/2021 8:33 PM CDT Sexual Orientation Not on file documented as of this encounter Miscellaneous Notes * Cerner Conversion Note - Ivan Nino MD - 09/09/2018 9:05 AM CDT Patient: AUGUSTO PACHECO Age: 67 years Sex: Male : 1950 Associated Diagnoses: Unstable angina; Recent Pneumonia; Alcohol use 3 beers daily; Severe mitral regurgitation; Nicotine dependence with withdrawal; HLD (hyperlipidemia); HTN (hypertension); Diverticulitis with history of colostomy and recent colostomy reversal; Severe COPD and emphysematous lungs; CAD (coronary artery disease), [place] coronary artery Author: LEANDER WHEELER PA Basic [...] has not been on any blood thinners. POD#5 S/P Mitral valve repair using a 30 [...] today. 08/08: POD # 4, Transfer to [facility] 09/09: POD # 5, nausea improved today, no SOB, sternal discomfort Review of Systems Respiratory: No shortness of breath, No sputum production. Cardiovascular: No chest pain. Gastrointestinal: No nausea. Neurologic: Alert and oriented X4. Health Status Allergies: Allergic Reactions (Selected) No Known Allergies Objective MT 60ml Bilateral CT 20ml / 12 hours VS/Measurements Vital Measurements 09/09/2018 9:06 EDT Heart Rate, Apical 97 bpm 09/09/2018 9:04 EDT Systolic Blood Pressure 80 mmHg LOW Diastolic Blood Pressure 51 mmHg LOW Oxygen Saturation 93 % LOW Oxygen Therapy Mode Nasal cannula Oxygen Flow Rate 4 Liter/Min General: Alert and oriented, No acute distress. HENT: Normocephalic. Neck: Supple. Respiratory: Lungs are clear to auscultation, Respirations are non-labored, Breath sounds are equal. Cardiovascular: 101 beats per minute, Regular rhythm, S1, S2, Tachycardia, No edema. Gastrointestinal: Soft, Non-tender, Non-distended, Normal bowel sounds. Integumentary: Warm, Dry, [place], Aquacel dressing is C/D/I. Neurologic: Alert, Oriented, No focal deficits. Psychiatric: Mood and affect: Calm. Review / Management Results review: SEP 09 03:06 142 106 H 34 / H 140 3.7 31 1.20 \ SEP 09 03:06 \ L 10.8 / 9.1 282 / L 32.7 \. Radiology results Radiology Results (Last 48 hours) [id number] -- 09/02/2018 14:21 CR Chest 1 Vw Portable (09/08/2018 04:05) Result: PORTABLE CHESTHISTORY: Pleural effusion, shortness of air.COMPARISON: 09/07/2018FINDINGS: The heart is normal in size . The mediastinum isunremarkable . There is extensive bilateral scarring. Minimal bilateralpleural effusions are seen with right pleural scarring. There has beeninterval removal of the mediastinal drain, left chest tube, andSwan-Chica catheter. There is no pneumothorax IMPRESSION: Removal of support devices without evidence of pneumothoraxor progression of lung disease.Films reviewed, interpreted, and dictated by Dr. Andrea [...] worse today 1.2 (from0.9) - suspected hypoperfusion EF 40% per echo 09/04/18 DVT Prophylaxis: [...] Pre-Op Diagnosis, Medical. CAD (coronary artery disease), [place] coronary artery - Admitting, Medical. CAD (coronary artery disease), [place] coronary artery - Discharge, Medical. Electronically signed by Destiny, [facility] Conversion Engine Testing Supervisor Cerner at 07/05/2022 8:43 PM CDT documented in this encounter Plan of Treatment Upcoming Encounters Date Type Department Care Team (Late st Contact Info) Description 10/27/2024 10:00 AM EDT Appointment [facility] 1 [place] [address] Adalberto Painting MD [address] [place] [address] [address] [place] [address] 10/29/2024 10:30 AM EDT Audio - Telemedicine [facility] [address] [place] [address] [address] [place] [phone] Adalberto Painting MD [address] [place] [address] [address] [place] [address] documented as of this encounter Visit Diagnoses Not on filedocumented in this encounter Care Teams Chief Drafter Relationship Specialty Start Date End Date Martinez Canseco MD [address] [place] [address] PCP - General Family Medicine 10/05/22 documented as of this encounter
--- OUTSIDE RECORDS SUMMARY | 2024-10-14 15:51 | XMS_ITS | Encounter Summary ---
Author Organization [employer] ([place], [place], [place], [place]) Address [address] [place] [address] Care Team Providers Care Security Architect Name Role Phone Martinez Canseco MD Primary Care Provider [phone] Encounter Details Date Type Department Care Team (Late st Contact Info) Description 09/10/2018 Transcribed Document [facility] [place] Family Medicine [address] [place] [address] ProviderIvan MD [address] [place], [place] [address] Social History Tobacco Use Types Packs/Day Years Used Date Smoking Tobacco: Never Assessed Sex and Gender Information Value Date Recorded Sex Assigned at Male 09/13/2021 8:33 PM CDT Legal Sex Male 8:33 PM CDT Gender Identity Male 09/13/2021 8:33 PM CDT Sexual Orientation Not on file documented as of this encounter Miscellaneous Notes * Cerner Conversion Note - Ivan Nino MD - 09/10/2018 9:52 AM CDT Patient: AUGUSTO PACHECO Age: 67 years Sex: Male : 1950 Associated Diagnoses: Unstable angina; Recent Pneumonia; Alcohol use 3 beers daily; Severe mitral regurgitation; Nicotine dependence with withdrawal; HLD (hyperlipidemia); HTN (hypertension); Diverticulitis with history of colostomy and recent colostomy reversal; Severe COPD and emphysematous lungs; CAD (coronary artery disease), [place] coronary artery Author: LEANDER WHEELER PA Basic [...] has not been on any blood thinners. POD#6 S/P Mitral valve repair using a 30 [...] today. 08/08: POD # 4, [facility] 09/09: POD # 5, nausea improved today, no SOB, sternal discomfort 09/10: POD # 6 nausea still present but better today, breathing about the same, son at bedside and requests rehab upon discharge Review of Systems Respiratory: No shortness of breath, No sputum production. Cardiovascular: No chest pain. Gastrointestinal: Nausea (improving). Neurologic: Alert and oriented X4. Health Status Allergies: Allergic Reactions (Selected) No Known Allergies Objective VS/Measurements Vital Measurements 09/10/2018 9:46 EDT Oxygen Saturation 90 % LOW Oxygen Therapy Mode Nasal cannula Oxygen Flow Rate 4 Liter/Min 09/10/2018 8:11 EDT Heart Rate Monitored 104 bpm SD 09/10/2018 7:43 EDT Systolic Blood Pressure 117 mmHg Diastolic Blood Pressure 77 mmHg General: Alert and oriented, No acute distress. Respiratory: Lungs are clear to auscultation, Respirations are non-labored, Breath sounds are equal. Cardiovascular: 112 beats per minute, Regular rhythm, S1, S2, Tachycardia, No edema. Gastrointestinal: Soft, Non-tender, Non-distended, Normal bowel sounds. Integumentary: Warm, Dry, [place], Aquacel dressing is C/D/I. Neurologic: Alert, Oriented, No focal deficits. Psychiatric: Mood and affect: Calm. Review / Management Results review: SEP 10 03:31 145 106 H 43 / H 109 3.8 H 35 1.10 \ SEP 10 03:31 \ L 10.0 / 8.6 282 / L 30.1 \. Radiology results Radiology Results (Last 48 hours) [id number] -- 09/02/2018 14:21 CR Chest 1 Vw [...] Dr. Andrea Porter.Transcribed by Wai Vazquez PA-C, R.TLexy (N), Polo Trevizo T.I have personally viewed, [...] Family would like discharge to rehab to [facility] in [place] - precert initiated Cr improved today Small bilateral pleural effusions - requiring O2 4L continuous - Lasix 40 IV today 1L fluid restriction Still holding on BB, may consider starting low dose tomorrow Hold lisinopril as well for now EF 40% per echo 09/04/18 DVT Prophylaxis: [...] Pre-Op Diagnosis, Medical. CAD (coronary artery disease), [place] coronary artery - Admitting, Medical. CAD (coronary artery disease), [place] coronary artery - Discharge, Medical. documented in this encounter Plan of Treatment Upcoming Encounters Date Type Department Care Team (Late st Contact Info) Description 10/27/2024 10:00 AM EDT Appointment [facility] 1 [place] [phone] Adalberto Painting MD [address] [place] [address] [address] 10/29/2024 10:30 AM EDT Audio - Telemedicine [facility] [address] [place] [address] [phone] Adalberto Painting MD [address] [place] [address] [address] [place] [address] documented as of this encounter Visit Diagnoses Not on filedocumented in this encounter Care Teams Security Architect Relationship Specialty Start Date End Date Martinez Canseco MD [address] [place] [address] PCP - General Family Medicine 10/05/22 documented as of this encounter
--- OUTSIDE RECORDS SUMMARY | 2024-10-14 15:51 | XMS_ITS | Encounter Summary ---
Author Organization [employer] ([place], [place], [place], [place]) Address [address] [place] [address] Care Team Providers Care Public Works Inspector Name Role Phone Martinez Canseco MD Primary Care Provider [phone] Encounter Details Date Type Department Care Team (Late st Contact Info) Description 09/09/2018 Transcribed Document [facility] [place] Family Medicine [address] [place] [address] ProviderIvan MD [address] [place] [address] Social History Tobacco Use Types Packs/Day Years Used Date Smoking Tobacco: Never Assessed Sex and Gender Information Value Date Recorded Sex Assigned at Male 09/13/2021 8:33 PM CDT Legal Sex Male 8:33 PM CDT Gender Identity Male 09/13/2021 8:33 PM CDT Sexual Orientation Not on file documented as of this encounter Miscellaneous Notes * Cerner Conversion Note - Ivan ProviderMD - 09/09/2018 2:00 AM CDT Command And Control Details Entered On: 09/09/2018 4:56 EDT Performed On: 09/09/2018 2:00 EDT by Lisa Velazquez Rn-Resource Order Details Transport Mode Order Detail : Wheelchair Isolation Precautions Order Detail : Standard Precautions Order Detail : N/A IV Order Detail : 1 Oxygen Order Detail : 1 Nurse Collect Order Detail : 0 Lift/Transfer : Moderate assist Central Line Order Detail : No Room Service : Appropriate Arterial Line : No Lisa Velazquez Rn-Resource - 09/09/2018 4:56 EDT documented in this encounter Plan of Treatment Upcoming Encounters Date Type Department Care Team (Late st Contact Info) Description 10/27/2024 10:00 AM EDT Appointment [facility] 1 [place] [phone] [place] [address] [place] [address] [address] [place] [phone] 10/29/2024 10:30 AM EDT Audio - Telemedicine [facility] [address] [facility] [address] [place] [phone] Adalberto Painting MD [address] [facility] [address] [place] [address] documented as of this encounter Visit Diagnoses Not on filedocumented in this encounter Care Teams Public Works Inspector Relationship Specialty Start Date End Date Martinez Canseco MD [address] [place] [address] PCP - General Family Medicine 10/05/22 documented as of this encounter
--- OUTSIDE RECORDS SUMMARY | 2024-10-14 15:51 | XMS_ITS | Encounter Summary ---
Author Organization [employer] ([place], [place], [place], [place]) Address [address] [place] [address] Care Team Providers Care Computer Sciences Professor Name Role Phone Martinez Canseco MD Primary Care Provider [phone] Encounter Details Date Type Department Care Team (Late st Contact Info) Description 09/10/2018 Transcribed Document [facility] [place] Family Medicine [address] [place] [address] ProviderIvan MD [address] [place], [place] [address] Social History Tobacco Use Types Packs/Day Years Used Date Smoking Tobacco: Never Assessed Sex and Gender Information Value Date Recorded Sex Assigned at Male 09/13/2021 8:33 PM CDT Legal Sex Male 8:33 PM CDT Gender Identity Male 09/13/2021 8:33 PM CDT Sexual Orientation Not on file documented as of this encounter Miscellaneous Notes * Cerner Conversion Note - Ivan Nino MD - 09/10/2018 3:36 PM CDT Final Discharge Planning Entered On: 09/10/2018 15:36 EDT Performed On: 09/10/2018 15:36 EDT by MAGDALENO LOYA RN-Seasonal Tax Preparer Final Discharge Planning Discharge Arrangements : Patient Post-Acute Information Patient Name: AUGUSTO PACHECO Gender: Male : [birth year] Age: 67 Years Curaspan Referral(s): Service: Organization: Business Address: Phone Number: [facility] [address], [place], [address] Important Medicare Message Reviewed With : Patient Important Medicare Message Reviewed D/T : 09/10/2018 10:00 EDT Transportation Needs : Family/Friend Discharge Transportation Arrangement Cmt : Dago will transpt to facility Patient/Family Notified of Plan : Yes Patient/Family Notified : MAGDALENO Disla, RN-Seasonal Tax Preparer - 09/10/2018 15:36 EDT Final Narrative Note Final Narrative Note : Rehabilitation: [facility] call Elyssa [phone] and [phone] office Nurse can Call report to [phone] Discharge Summary: fax to [phone] Transportation: Brother will transpt MAGDALENO LOYA RN-Seasonal Tax Preparer - 09/10/2018 15:36 EDT Electronically signed by Destiny [facility] Conversion Supervisor Shed Workers Cerner at 07/05/2022 8:36 PM CDT documented in this encounter Plan of Treatment Upcoming Encounters Date Type Department Care Team (Late st Contact Info) Description 10/27/2024 10:00 AM EDT Appointment [facility] 1 [place] [phone] Adalberto Painting MD [address] [place] [address] [place] [address] 10/29/2024 10:30 AM EDT Audio - Telemedicine [facility] [address] [place] [address] [place] [phone] Adalberto Painting MD [address] [place] [address] [address] [place] [address] documented as of this encounter Visit Diagnoses Not on filedocumented in this encounter Care Teams Computer Sciences Professor Relationship Specialty Start Date End Date Martinez Canseco MD [address] [place] [address] PCP - General Family Medicine 10/05/22 documented as of this encounter
--- OUTSIDE RECORDS SUMMARY | 2024-10-14 15:51 | XMS_ITS | Clinical Summary ---
Author Organization [facility] Address [address] [place] [address] Phone Care Team Providers Care Bung Dropper Name Role Phone Apolinar Aldana MD Primary Care Provider [phone] Allergies No known active allergies Medications atorvastatin (LIPITOR) 20 mg Oral TabletIndication s:Coronary artery disease involving coronary bypass graft of [place] heart without angina pectoris Take 1 Tab [...] disease invo lving coronary bypass graft of [place] heart without angina pectoris 07/13/2022 Assessment & Plan (07/13/2022 10:06 AM EDT): Noted from previous history. No acute complaints today. Essential hypertension 07/13/2022 CKD (chronic kidney disease) stage 3, GFR 30-59 ml/min 07/13/2022 Overview (07/13/2022): Aquatic Physiotherapist - Dr. Augusto Frederick [phone] Assessment & Plan (07/13/2022 10:03 AM EDT): [...] 09/22/2022 8:39 AM EDT Plan of Treatment Upcoming Encounters Date Type Department Care Team (Late st Contact Info) Description 10/28/2024 1:40 PM EDT Office Visit [facility] [address] [place] [phone] Apolinar Aldana MD [address] [place] [phone] Health Maintenance Due Date Last Done Comments Hepatitis C Screening 1970 Colonoscopy 1997 FIT 1997 Sigmoidoscopy 1997 Virtual Colonography 1997 AAA Screening 2017 Pneumococcal Vaccine 50+ (2 of 2 - PCV) 02/16/2021 02/17/2020 Wellness Exam Medicare 09/23/2023 09/22/2022 COVID-19 Vaccine ( season) 2023 04/07/2022, 07/20/2021, 01/21/2021, Additional history exists Influenza Vaccine (#1) 2024 , 01/06/2021, 02/17/2020 Cologuard 09/27/2025 09/27/2022, 09/27/2022 Colon [...] maintain an ideal body weight General No [place] R, RMA Stay Tobacco Free Lifestyle No Mai De APRN Procedures Procedure Name Priority Date/Time Associated Diagnosis Comments COLOGUARD Routine 09/27/2022 2:15 PM EDT Screening for colon cancer from Last 3 Months or Most Recently Relevant to Health Maintenance Results * COLOGUARD (09/27/2022 2:15 PM EDT) COLOGUARD CLINICAL REPORT Negative Negative [facility] Comment: NEGATIVE TEST RESULT. A negative [...] screened with both Cologuard and colonoscopy. (Bakari Luna al, N Engl J Med 2014;370(14):7496-4841) The normal value (reference range) for this assay is negative. COLOGUARD RE-SCREENING RECOMMENDATION: Periodic colorectal cancer screening is an important part of preventive healthcare for asymptomatic individuals at average risk for colorectal cancer. Following a negative Cologuard result, the [employer] and U.S. Multi-Society Task Force screening guidelines recommend a Cologuard re-screening interval of 3 years. References: [employer] [employer] Guideline for Colorectal Cancer Screening: https://www.cancer.org/cancer/idand-ynhqfr-emtgbx/wfqrvkibk-sffjgcauv-rthhowj/ac s-rec ommendations.html.; Nelson DK, Whitley CR, Hermelindo MarrK, Colorectal Cancer Screening: Recommendations for Physicians and Patients from the U.S. Multi-Society Task Force on Colorectal Cancer Screening , Am J Gastroenterology 2017; 112:7019-7464. TEST DESCRIPTION: Composite algorithmic analysis of stool [...] screened with both Cologuard and colonoscopy. (Bakari Luna al, N Engl J Med 2014;370(14):9325-7856.) Cologuard may produce a false negative or false positive result (no colorectal cancer or precancerous polyp present at colonoscopy follow up). A negative Cologuard test result does not guarantee the absence of CRC or advanced adenoma (pre-cancer). The current Cologuard screening interval is every 3 years. ([place] [employer] and U.S. Multi-Society Task Force). Cologuard performance data in a 10,000 patient pivotal study using colonoscopy as the reference method can be accessed at the following location: www.[employer]results. Additional description of the Cologuard test process, warnings and precautions can be found at www.[employer].com. 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 07/16/2022 07/16/2022 Insurance MEDICARE [place] PART A AND B [facility] MED[facility] [place] MEDICARE [place] PART A AND B [facility] [employer] MEDICARE SPP[place] Advance Directives For more information, please contact: [phone] * Full Code (Latest Code Status on File) Date Activated Date Inactivated Comments 07/19/2022 3:28 PM 07/25/2022 9:44 PM * Full Code Date Activated Date Inactivated Comments 07/16/2022 10:34 PM 07/17/2022 9:07 PM Care Teams Bung Dropper Relationship Specialty Start Date End Date Apolinar Aldana MD [address] [place] [address] PCP - General Internal Medicine 07/13/22
== END 2024-10-13 23:59 | disposition home or self-care (01) ==
LOC: LAB.DROPOF 10-14 15:43
PROVIDERS: PCP Nurse Practitioner; Visit Provider Nurse Practitioner
DX: I13.0 Hypertensive heart and chronic kidney disease with heart failure and stage 1 through stage 4 chronic kidney disease, or unspecified chronic kidney disease (principal); M79.89 Other specified soft tissue disorders
CPT/HCPCS: 80048

== ENCOUNTER 2024-11-10 10:10 | Outpatient (CLI) | payer MEDICARE, OTHER, SELFPAY ==
--- OUTSIDE RECORDS SUMMARY | 2024-10-27 09:32 | XMS_ITS | Encounter Summary ---
Author Organization [employer] ([place], [place], [place], [place]) Address [address] [place] [address] Care Team Providers Care Can Filling And Closing Machine Tender Name Role Phone Martinez Canseco MD Primary Care Provider [phone] Reason for Referral * MRI (Routine) - Closed Specialty Diagnoses / Procedures Referred By Ronalac vania Referred To Contact Radiology Diagnoses Liver mass Procedures MR abdomen without & with IV contrast Adalberto Painting MD [address] [place] [address] [place] [address] Phone: tel: fax: Referral ID Status Reason Start Date Expiration Date Visits Re quested Visits Authorized [id number] Closed 10/13/2024 10/13/2025 1 1 Reason for Visit * MRI (Routine) - Closed Specialty Diagnoses / Procedures Referred By Ronalac vania Referred To Contact Radiology Diagnoses Liver mass Procedures MR abdomen without & with IV contrast Adalberto Painting MD [address] [place] [address] [place] [address] Phone: tel: fax: Referral ID Status Reason Start Date Expiration Date Visits Re quested Visits Authorized [id number] Closed 10/13/2024 10/13/2025 1 1 Encounter Details Date Type Department Care Team (Late st Contact Info) Description 10/27/2024 9:32 AM EDT - 10/27/2024 11:59 PM EDT Hospital Encounter [facility] MRI [address] [place] [address] Adalberto Painting MD [address] [facility] [address] [place] [address] Liver mass Discharge Disposition: Home or Self Care Social History Tobacco Use Types Packs/Day Years Used Date Smoking Tobacco: Every Day Cigarettes Smokeless Tobacco: Never Alcohol Use Standard Drinks/Week Comments Yes 0 (1 standard drink = 0.6 oz pur e alcohol) Family and Community Support Answer Rufus e Recorded Help with Day to Day Activities Not on file 03/31/2023 Feeling Lonely or Isolated Not on file 03/31 Educational Attainment Answer Date Iain rded Speak language other than Greek at home Not on file 03/31/2023 Want [...] on file documented as of this encounter Last Filed Vital Signs Vital Sign Reading Time Taken Comments Blood Pressure - - Pulse - - Temperature - - Respiratory Rate - - Oxygen Saturation - - Inhaled Oxygen Concentration - - Weight 115.2 kg (254 lb) 10/27/2024 9:45 AM EDT Height 185.4 cm (6' 1 ) 10/27/2024 9:45 AM EDT Body Mass Index 33.51 10/27/2024 9:45 AM EDT documented in this encounter Medications at Time of Discharge amLODIPine (NORVASC) 5 MG tablet Take 1 tablet (5 mg total) by mouth daily. 07/25/2022 aspirin 81 MG EC tablet Take 1 tablet (81 mg total) by mouth. atorvastatin (LIPITOR) 20 MG tablet Take 1 tablet (20 mg total) by mouth daily. 09/05/2022 carvediloL (COREG) 25 MG tablet Take 1 tablet (25 mg total) by mouth 2 (two) times daily. 08/02/2022 documented as of this encounter Plan of Treatment Not on file documented as of this encounter Procedures Procedure Name Priority Date/Time Associated Diagnosis Comments MR ABDOMEN WITH & WITHOUT IV CONTRAST Routine 10/27/2024 10:14 AM EDT Liver mass POCT-CREATININE NOVA Routine 10/27/2024 9:50 AM EDT documented in this encounter Results * MR abdomen without & with IV contrast (10/27/2024 10:14 AM EDT) Anatomical Region Laterality Modality Abdomen Magnetic Resonan ce (MRI) 10/27/2024 10:4 9 AM EDT Impressions 10/27/2024 10:53 AM EDT Stable 26 mm lobular mass medial to the liver of uncertain etiology, but could represent a deformed gallbladder or other mass. Since it is stable since 2020, it is consistent with a benign etiology. Images reviewed, interpreted, and dictated by Henry Bolivar MD Narrative 10/27/2024 10:53 AM EDT MR ABDOMEN WITHOUT AND WITH CONTRAST HISTORY: Liver mass COMPARISON: October 16, 2022, October 25, 2020 FINDINGS: Multiplanar MR imaging of the abdomen was performed without and with contrast. Hepatobiliary: An 8 mm mass is seen in the posterior segment of the right hepatic lobe which is stable and consistent with a cyst. No other hepatic abnormality is identified. A lobular mass is seen medial to the right hepatic lobe which measures 26 mm in maximum axial dimension. It is increased signal in both the T1 and T2-weighted images and has soft tissue along its lateral border. It is stable in size and appearance since the prior exams. The gallbladder is not visualized and it is uncertain if this represents a deformed gallbladder or other mass. No significant biliary ductal dilatation is seen. Pancreas: No pancreatic mass is identified. There is no significant pancreatic ductal dilatation. Adrenals: Unremarkable. Spleen: The spleen size is normal. Kidneys: A left renal cyst is visually stable. There is also a cyst at the lower pole of the right kidney. There is no evidence of hydronephrosis. Lymph Nodes: No adenopathy is identified. Fluid: No free fluid or walled fluid collection. Procedure Note Henry Bolivar MD - 10/27/2024 MR ABDOMEN WITHOUT AND WITH CONTRAST HISTORY: Liver mass COMPARISON: October 16, 2022, October 25, 2020 FINDINGS: Multiplanar MR imaging of the abdomen was performed without and with contrast. Hepatobiliary: An 8 mm mass is seen in the posterior segment of the right hepatic lobe which is stable and consistent with a cyst. No other hepatic abnormality is identified. A lobular mass is seen medial to the right hepatic lobe which measures 26 mm in maximum axial dimension. It is increased signal in both the T1 and T2-weighted images and has soft tissue along its lateral border. It is stable in size and appearance since the prior exams. The gallbladder is not visualized and it is uncertain if this represents a deformed gallbladder or other mass. No significant biliary ductal dilatation is seen. Pancreas: No pancreatic mass is identified. There is no significant pancreatic ductal dilatation. Adrenals: Unremarkable. Spleen: The spleen size is normal. Kidneys: A left renal cyst is visually stable. There is also a cyst at the lower pole of the right kidney. There is no evidence of hydronephrosis. Lymph Nodes: No adenopathy is identified. Fluid: No free fluid or walled fluid collection. IMPRESSION: Stable 26 mm lobular mass medial to the liver of uncertain etiology, but could represent a deformed gallbladder or other mass. Since it is stable since 2020, it is consistent with a benign etiology. Images reviewed, interpreted, and dictated by Henry Bolivar MD Adalberto Painting MD IM MRI ORDERABLES Final Result * POC-Creatinine (10/27/2024 9:50 AM EDT) POC-Creatinine 1.2 mg/dL 10/27/2024 9:51 AM EDT [facility] POC-EGFR >60 mL/min/1. 73M2 10/27/2024 9:51 AM EDT [facility] Comment:Proceed with contras t if eGFR > 45 ml/min/1.73 when performed on the NovaSTAT strip Creatinine meter. Wheel Shop Supervisor RICHAR TOVAR 10/27/2024 9:51 AM EDT [facility] Blood 10/27/2024 9:50 AM EDT 10/27/2024 9:51 AM EDT Narrative [facility] - 10/27/2024 9:51 AM EDT Wheel Shop Supervisor ID is - [id number] us Adalberto Painting MD POINT OF CARE TEST ORDERABLES Fi nal Result [facility] [address] [place] [id number], [facility] [phone] documented in this encounter Visit Diagnoses Diagnosis Liver mass Unspecified disorder of liver documented in this encounter Administered Medications Inactive Administered Medications - up to 3 most recent administrations Medication Order MAR Action Action Date Dose Rate Site gadoteridoL (PROHANCE) injection 11.52 mmol 11.52 mmol Once (0.1 mmol/kg 115.2 kg), intravenous, On 10/27/24 at 1030, For 1 dose, Intra-op Given 10/27/2024 10:15 AM EDT 10 mmol documented in this encounter Care Teams Can Filling And Closing Machine Tender Relationship Specialty Start Date End Date Martinez Canseco MD [address] [place] [address] PCP - General Family Medicine 10/05/22 documented as of this encounter
--- OUTSIDE RECORDS SUMMARY | 2024-10-28 13:40 | XMS_ITS | Encounter Summary ---
Author Organization [place] [address] Care Team Providers Care Molding Machine Operator Name Role Phone Apolinar Aldana MD Primary Care Provider [phone] Reason for Referral * Ultrasound (Routine) - Pending Review Specialty Diagnoses / Procedures Referred By Laura t Referred To Contact Radiology Diagnoses Annual physical exam Procedures US AAA SCREENING EXAM MEDICARE Apolinar Aldana MD [facility] [place] [address] Phone: tel: fax: Referral ID Status Reason Start Date Expiration Date V isits Requested Visits Authorized [id number] Pending Review 10/28/2024 10/28/2025 1 1 Reason for Visit * Reason Comments Medicare Annual Wellness medicare Encounter Details Date Type Department Care Team (Late st Contact Info) Description 10/28/2024 1:40 PM EDT Office Visit [facility] [place] [phone] Apolinar Aldana MD [address] [facility] [place] [phone] Annual physical exam (Primary Dx); Centrilobular emphysema (HCC); Meningioma (HCC); Stage 3a chronic kidney disease (HCC) Social History Tobacco Use Types Packs/Day Years Used Date Smoking Tobacco: Former Cigarettes Smokeless Tobacco: Never Tobacco Cessation:Counseling Given: Not Answered Alcohol Use Standard Drinks/Week Comments Yes 0 (1 standard drink = 0.6 oz pur e alcohol) occ PHQ-2 Answer Date Recorded PHQ-2 Total Score 0 10/28/2024 Sex and Gender Information Value Date Recorded Sex Assigned at Not on file Legal Sex Male 3:53 PM EDT Gender Identity Not on file Sexual Orientation Not on file documented as of this encounter Last Filed Vital Signs Vital Sign Reading Time Taken Comments Blood Pressure 141/72 10/28/2024 1:19 PM EDT Pulse 78 10/28/2024 1:19 PM EDT Temperature 36.4 C (97.6 F) 10/28/2024 1:19 PM EDT Respiratory Rate 20 10/28/2024 1:19 PM EDT Oxygen Saturation 93% 10/28/2024 1:19 PM EDT Inhaled Oxygen Concentration - - Weight 115.2 kg (254 lb) 10/28/2024 1:19 PM EDT Height 185.4 cm (6' 1 ) 10/28/2024 1:19 PM EDT Body Mass Index 33.51 10/28/2024 1:19 PM EDT documented in this encounter Functional Status * Cognitive and Functional Status Question Answer Date of Assessment Author Is the person deaf or does he/she have serious difficulty hearing? No 10/28/2024 8:01 AM EDT Whitney Pond CCMA Is the person blind or does he/she have serious difficulty seeing even when wearing glasses? No 10/28/2024 8:01 AM EDT Whitney Pond CCMA Does this person have seriou s difficulty walking or climbing stairs? No 10/28/2024 8:01 AM EDT Whitney Pond CCMA Does this person have diffic ulty dressing or bathing? No 10/28/2024 8:01 AM ISAIAHT Whitney Pond CCMA * Is the person deaf or does he/she have serious difficulty hearing? Answer Date of Assessment Author No 10/28/2024 8:01 AM EDT Santhosh Pond CCMA * Is the person blind or does he/she have serious difficulty seeing even when wearing glasses? Answer Date of Assessment Author No 10/28/2024 8:01 AM EDT Santhosh Pond CCMA * Does this person have serious difficulty walking or climbing stairs? Answer Date of Assessment Author No 10/28/2024 8:01 AM EDSanthosh Marie CCMA * Does this person have difficulty dressing or bathing? Answer Date of Assessment Author No 10/28/2024 8:01 AM Santhosh Back CCMA * Because of a physical, mental or emotional condition, does this person have difficulty doing errands alone such as visiting a doctor's office or shopping? Answer Date of Assessment Author No 10/28/2024 8:01 AM EDSanthosh Marie CCMA * PHQ-9 Total Score Answer Date of Assessment Author 0 10/28/2024 8:02 AM Santhosh Back CCMA * Question Answer Date of Assessment Author Little interest or pleasure in doing things 0 10/28/2024 8:02 AM Whitney Back CCMA Feeling down, depressed, or hopeless 0 10/28/2024 8:02 AM Whitney Back CCMA PHQ-2 Total Score 0 10/28/2024 8:02 AM Whitney Back CCMA * PHQ-2 Total Score Answer Date of Assessment Author 0 10/28/2024 8:02 AM Santhosh Back CCMA * Question Answer Date of Assessment Author Feeling Nervous, Anxious, or on Edge 0 10/28/2024 8:01 AM ISAIAHT Whitney Pond CCMA Not Being Able to Stop or Control Worrying 0 10/28/2024 8:01 AM Whitney Back CCMA Worrying too Much About Different Things 0 10/28/2024 8:01 AM Whitney Back CCMA Trouble Relaxing 0 10/28/2024 8:01 AM Whitney Beth CCMA Being so Restless That it is Hard to Sit Still 0 10/28/2024 8:01 AM Whitney Back CCMA Becoming Easily Annoyed or Irritable 0 10/28/2024 8:01 AM EDT Whitney Pond CCMA Feeling Afraid as if Somethi ng Awful Might Happen 0 10/28/2024 8:01 AM EDT Whitney Pond CCMA JOSELYN-7 Total Score 0 10/28/2024 8:01 AM EDT Whitney Pond CCMA documented as of this encounter Mental Status * Cognitive and Functional Status Question Answer Entry Date Author Because of a physical, menta l or emotional condition, does this person have difficulty doing errands alone such as visiting a doctor's office or shopping? No 10/28/2024 8:01 AM EDT Whitney Pond CCMA Because of a physical, menta l or emotional condition, does this person have serious difficulty concentrating, remembering or making decisions? No 10/28/2024 8:01 AM EDT Whitney Pond CCMA * Because of a physical, mental or emotional condition, does this person have serious difficulty concentrating, remembering or making decisions? Answer Entry Date Author No 10/28/2024 8:01 AM EDT Santhosh Pond CCMA documented in this encounter Progress Notes * Apolinar Aldana MD - 10/28/2024 1:48 PM EDTAssociated Problem(s): Centrilobular emphysema (HCC) Discussed. * Apolinar Aldana MD - 10/28/2024 1:48 PM EDTAssociated Problem(s): Meningioma (HCC) No signs/symptoms of recurrence * Apolinar Aldana MD - 10/28/2024 1:48 PM EDTAssociated Problem(s): CKD (chronic kidney disease) stage 3, GFR 30-59 ml/min (HCC) Preventing CKD Progression: 1.Tight control of BP, BS, Lipids, passive smoking etc 2.Avoid any NSAIDs 3.Avoid IV contrast (Oral contrast OK). 4.Careful selection of Abx, dose for current GFR. 5.DASH diet, along with limiting the protein intake. Recommended protein intake no more than 1 gm/kg/day. Na =2 gm per day. Limit Phosphorus and Purines in diet too. * Apolinar Aldana MD - 10/28/2024 1:40 PM EDT Assessment & Plan Assessment & Plan No follow-ups on file. Subjective Santino Hansen is a 74 y.o. male Chief Complaint Patient presents with Medicare Annual Wellness medicare Subsequent Annual Medicare Wellness Assessment. Risk Assessments: Fall Risk Assessment Has the patient had any fall with injury in the past year?: (Patient-Rptd) No Has the patient had 2 or more falls in the past year?: (Patient-Rptd) No Is the patient able to sit without assistance?: (Patient-Rptd) Yes Is the patient able to get up without assistance?: (Patient-Rptd) Yes Does the patient have a difficult time ambulating when first getting up?: (Patient-Rptd) No Does the patient have rugs or runners in the home?: (Patient-Rptd) No Does the patient have grab bars in the bathroom?: (!) (Patient-Rptd) No Does the patient have stairs inside or outside of the home?: (!) (Patient-Rptd) Yes Does the patient have handrails for all inside or outside stairs?: (Patient- Rptd) Yes Functional Status Assessment Functional Level: (Patient-Rptd) self care Functional Mobility Assessment: (Patient-Rptd) independent w/o assist device Assessment of transportation needs: (Patient-Rptd) still drives most of the time Functional Activities of Daily Living Limitations: (Patient-Rptd) No issues Bladder: Do you have issues with your bladder, such as urgency or leaking urine?: (Patient-Rptd) Noissues Does the patient report issues or concerns regarding hearing?: (Patient-Rptd) No Does the patient wear a seatbelt whenever in a moving vehicle?: (Patient-Rptd) Yes Activities of Daily Living Assistive Device Assessment Assistive Devices: (Patient-Rptd) Eyeglasses Rx Osteoporosis Screening Assessment Has the patient had a DEXA (Bone Density) scan in the past 2 years?: (!) (Patient-Rptd) No No results found for this or any previous visit. Abnormal Pains Assessment Excluding what you would consider normal aches and pains for your age and medical condition, do youhave any unusual or worrisome pains?: (Patient-Rptd) No Opiate Screening Are you currently on opiate or narcotic medications?: (Patient-Rptd) No PHQ Depression Screening Results Little interest or pleasure in doing things: 0 Feeling down, depressed, or hopeless: 0 PHQ-2 Total Score: 0 PHQ-9 Total Score: 0 Advanced Directive Evaluation Does the patient have an Advance Directive?: (!) (Patient-Rptd) Yes, but not on file (Please bring your Advance Directive to your next office visit) Advance Care Planning Guide Given?: (!) No (For Dementia Screening below can use either AD-8 or Mini Cog. Doesn't require both.) AD-8 Dementia Screening tool results Problems with judgement: (Patient-Rptd) 0 Less interest in hobbies/activities: (Patient-Rptd) 0 Repeats the same things over and over: (Patient-Rptd) 0 Trouble learning how to use a tool, appliance or gadget: (Patient-Rptd) 0 Forgets correct month or year: (Patient-Rptd) 0 Trouble handling complicated financial affairs: (Patient-Rptd) 0 Trouble remembering appointments: (Patient-Rptd) 0 Daily problems with thinking and/or memory: (Patient-Rptd) 0 Total AD8 score:: (Patient-Rptd) 0 Mini Cog Dementia Screening tool results Welcome to Medicare Vision Screening Eye Exam : Not applicable/required for Subsequent AWV, only required for Welcome to Medicare Visit Patient Instructions AWV findings and Plan of Care: Recommendations as part of the Personal Plan of Care based on risk screening assessments are: Fall Risk Assessment: Fall Risk Assessment: negative - re-assess in 1 year Functional Status/Social Determinates of Health: stable, no issues, re-assess in 1 year Depression Screening: negative - re-assess in 1 year Dementia Screening: negative - recommend re-assess in 1 year Vaccinations: up to date Exercise/Activity: recommended continuing current Recommended follow up annually for Medicare Annual Wellness Visit. Good preventative health care is important in reducing morbidity and mortality. I recommend exercise regularly as tolerated focusing on strength and balance. I recommend a balanced diet focusing on fruits, veggies, and lean meats. I recommend avoiding having rugs, runners, or other loose trip hazards in the home as these increase fall risk. I recommend installing grab bars in the bathrooms close to toilets, in tubs, and in showers as these are common areas for falls when transitioning from wet surfaces to dry surfaces, or visa versa. This is also an area of the home that is high risk for falls at night. I encourage having an Advanced Directives. This is something we recommend you have on file at home,as well as something that we should have on file in our records. If we don't have a copy of your current Advanced Directive, please bring a copy to your next visit. If you have a power of employee benefits attorney orsurrogate, we should also have a copy on file. I encourage candid discussion with your family on your wishes in the event that you are incapacitated and unable to participate in direct medical decision making. It is important to stay up to date on recommended vaccinations, please see the health maintenance topics due below and if we have not completed one of those topics today, please consider completing as part of your wellness plan this year. Below are other health maintenance topics that are recommended to be closed at your earliest opportunity. You may notice that some of these were addressed in the office today and will show as resolved in your [employer] account soon. Health Maintenance Due Topic Date Due Hepatitis C Screening Never done AAA Screening Never done Pneumococcal Vaccine 50+ (2 of 2 - PCV) 02/16/2021 Wellness Exam Medicare 09/23/2023 COVID-19 Vaccine (2023- season) 2023 As part of today's visit the components of the Medicare wellness assessment were completed. These components included reviewing the information available in the risk screening questionnaire that was administered by ancillary staff either today or prior to today's visit (pre-visit planning) and recorded in the Medicare Wellness Assessment Flowsheet in the EMR. I have reviewed the data in regards to fall risk, activities of daily living/functional status, depression screening, dementia screening,and outstanding Health Maintenance topics and edited where necessary. The staff has reviewed and updated the past medical history, social history, family history, allergies, medications, and care team information during the standard rooming process. I have also reviewed this data as part of today'svisit. Below are the findings, recommendations, and Personal Plan of Care. The patient received a copy of their Personal Plan of Care including health maintenance topics thatare recommended to be completed and this can be noted in the after visit summary. The AVS is provided to the patient digitally through their MyChart account or with a paper copy if the patient doesn't have an active MyChart Account. A copy of today's progress note with recommendations below is alsoavailable electronically for patients with an active [employer] account per the [employer] Act. TheAVS also contains additional patient education if appropriate on topics common to wellness and their plan of care. History Reviewed: No results found. No results found for this visit on 10/28/24. Patient Active Problem List Diagnosis Coronary artery disease involving coronary bypass graft of hoopa heart without angina pectoris Essential hypertension CKD (chronic kidney disease) stage 3, GFR 30-59 ml/min ([facility]) Severe sepsis with septic shock (CODE) (HCC) Septic shock (HCC) LIZZETTE (acute kidney injury) ABLA (acute blood loss anemia) Meningioma ([facility]) Mixed hyperlipidemia Obesity (BMI 30.0-34.9) Past Medical History: Diagnosis Date CHF (congestive heart failure) (HCC) Chronic kidney disease COPD (chronic obstructive pulmonary disease) (HCC) Hypertension Past Surgical History: Procedure Laterality Date ANGIOPLASTY 09/02/2018 COLON SURGERY Part of colon removed No Known Allergies Current Outpatient Medications on File Prior to Visit Medication Sig Dispense Refill amLODIPine (NORVASC) 5 mg Oral Tablet Take 1 Tablet by mouth daily. 30 Tablet 2 aspirin 81 mg Oral Tablet, Chewable Take by mouth daily. atorvastatin (LIPITOR) 20 mg Oral Tablet Take 1 Tab by mouth nightly. 30 Tab 0 carvediloL (COREG) 25 mg Oral Tablet Take 25 mg by mouth 2 times daily (with meals). fUROsemide (LASIX) 40 mg Oral Tablet Take 40 mg by mouth as needed. No current facility-administered medications on file prior to visit. Social History Socioeconomic History Marital status: Single Spouse name: None Number of children: None Years of education: None Highest education level: None Tobacco Use Smoking status: Former Types: Cigarettes Smokeless tobacco: Never Substance and Sexual Activity Alcohol use: Yes Comment: occ Drug use: Not Currently Social Drivers of Health Received from [employer] ([place], [place], [place], [place]) Food Insecurity Received from [employer] ([place], [place], [place]) Family and Community Support Received from [employer] ([place], [place], [place], [place]) Housing Stability Family History Problem Relation Age of Onset High Blood Pressure Mother High Blood Pressure Father Kidney Disease Brother Immunization History Administered Date(s) Administered Influenza High Dose 02/17/2020, 12/29/2021 Influenza Vaccine Quadrivalent PF 01/06/2021 Moderna SARS-CoV-2 Bivalent Booster Vaccine 12+ Years ([place]) 04/07/2022 Moderna SARS-CoV-2 Booster Vaccine 18+ Yrs ([place]) 01/21/2021, 07/20/2021 Moderna SARS-CoV-2 Vaccine 12+ Yrs ([place]) 05/27/2020, 06/23/2020 Pneumococcal Polysaccharide 23 Valent 02/17/2020 Td (Adult), Absorbed 05/21/1996 Tdap 09/18/2016 Zoster Recombinant 04/07/2022, 09/04/2022 Health Maintenance Topic Date Due Hepatitis C Screening Never done AAA Screening Never done Pneumococcal Vaccine 50+ (2 of 2 - PCV) 02/16/2021 Wellness Exam Medicare 09/23/2023 COVID-19 Vaccine (2023- season) 2023 Influenza Vaccine (1) 11/17/2024 Colon Cancer Screening 09/27/2025 DTaP/TDaP/Td (2 - Td or Tdap) 09/18/2026 Zoster Completed Meningococcal B Vaccine Aged Out Hepatitis B Vaccine Aged Out Patient Care Team: Apolinar Aldana MD as PCP - General (Internal Medicine) Additional issues addressed today: History of Present Illness Review of Systems Constitutional: Negative. Negative for activity change, fatigue, fever and unexpected weight change. HENT: Negative. Negative for trouble swallowing. Eyes: Negative. Negative for photophobia, pain, discharge, itching and visual disturbance. Respiratory: Negative. Negative for cough, chest tightness, shortness of breath and wheezing. Cardiovascular: Negative. Negative for chest pain, palpitations and leg swelling. Gastrointestinal: Negative. Negative for abdominal distention, abdominal pain, blood in stool, constipation and diarrhea. Musculoskeletal: Negative. Negative for arthralgias, back pain, gait problem, joint swelling, myalgias, neck pain and neck stiffness. Skin: Negative. Negative for color change, pallor, rash and wound. Neurological: Negative. Negative for dizziness and headaches. Hematological: Negative for adenopathy. Psychiatric/Behavioral: Negative. Negative for confusion, sleep disturbance and suicidal ideas. Thepatient is not nervous/anxious. Objective Blood pressure (!) 141/72, pulse 78, temperature 97.6 ??F (36.4 ??C), temperature source Temporal, resp. rate 20, height 6' 1 (1.854 m), weight 254 lb (115.2 kg), SpO2 93%. Body mass index is 33.51 kg/m??. Physical Exam Physical Exam Vitals reviewed. Constitutional: General: He is not in acute distress. Appearance: Normal appearance. He is well-developed. He is not diaphoretic. HENT: Head: Normocephalic and atraumatic. Right Ear: External ear normal. Left Ear: External ear normal. Mouth/Throat: Pharynx: No oropharyngeal exudate. Eyes: General: No scleral icterus. Right eye: No discharge. Left eye: No discharge. Conjunctiva/sclera: Conjunctivae normal. Pupils: Pupils are equal, round, and reactive to light. Neck: Thyroid: No thyromegaly. Vascular: No JVD. Cardiovascular: Rate and Rhythm: Normal rate and regular rhythm. Heart sounds: Normal heart sounds. No murmur heard. No friction rub. No gallop. Pulmonary: Effort: Pulmonary effort is normal. Breath sounds: Normal breath sounds. Abdominal: General: Bowel sounds are normal. Palpations: Abdomen is soft. There is no mass. Tenderness: There is no abdominal tenderness. There is no guarding or rebound. Musculoskeletal: General: No tenderness. Normal range of motion. Cervical back: Normal range of motion and neck supple. Lymphadenopathy: Cervical: No cervical adenopathy. Skin: General: Skin is warm and dry. Coloration: Skin is not pale. Findings: No erythema or rash. Neurological: Mental Status: He is alert and oriented to person, place, and time. Results The provider educated the patient (or legal uniforms sales representative) on the use of the ambient listening artificial intelligence tool, [employer]. They were informed that this AI tool processes the conversation to generate a clinical note with the expected benefit of improved accuracy while achieving an improved encounter experience for the patient and provider.?The provider explained that the medical information captured by the AI tool including, but not limited to, diagnoses and treatment plan would be protected in accordance with applicable privacy laws and that all diagnoses and treatment decisions would be made by the provider. The provider explained that the note generated will be reviewed bythe provider for accuracy to minimize potential errors.? The patient was given an opportunity to ask questions and opt out of proceeding with the use of the AI tool. After being informed of such information, the patient (or legal uniforms sales representative), and each individual in attendance with the patient, verbally consented to the use of the AI tool. documented in this encounter Plan of Treatment Scheduled Orders Name Type Priority Associated Diagnoses Orde r Schedule COMPREHENSIVE METABOLIC PANEL Lab Routine Annual physical exam 1 Occurrences starting 10/28/2024 until 10/28/2025 HEMOGLOBIN A1C Lab Routine Annual physical exam 1 Occurrences starting 10/28/2024 until 10/28/2025 LIPID SCREEN Lab Routine Annual physical exam 1 Occurrences starting 10/28/2024 until 10/28/2025 TSH REFLEX TO FT4 Lab Routine Annual physical exam 1 Occurrences starting 10/28/2024 until 10/28/2025 TRIIODOTHYRONINE Lab Routine Annual physical exam 1 Occurrences starting 10/28/2024 until 10/28/2025 US AAA SCREENING EXAM MEDICARE Imaging Routine Annual physical exam 1 Occurrences starting 10/28/2024 until 10/28/2025 documented as of this encounter Goals Goal Patient Goal Type Associated Problems Recent Progress Patient-Stated? Author Blood Pressure < 140/90 Blood Pressure 141/72(2024 1:19 PM EDT) No Apolinar Aldana MD Maintain a healthy diet, exercise regularly and maintain an ideal body weight General No [place]és [place] R, RMA Stay Tobacco Free Lifestyle No Mai De APRN documented as of this encounter Procedures Procedure Name Priority Date/Time Associated Diagnosis Comments SCANNED LABS 11/05/2024 12:06 PM EDT documented in this encounter Results * SCANNED LABS (11/05/2024 12:06 PM EDT) 11/05/2024 12:0 6 PM EDT us Unknown Provider HEMATOLOGY ORDERABLES Final Res ult documented in this encounter Visit Diagnoses Diagnosis Annual physical exam- Primary Routine general medical examination at a health care facility Centrilobular emphysema (HCC) Other emphysema Meningioma (HCC) Benign neoplasm of cerebral meninges Stage 3a chronic kidney disease (HCC) documented in this encounter Historical Medications * This list may reflect changes made after this encounter. fUROsemide (LASIX) 40 mg Oral Tablet Take 40 mg by mouth as needed. carvediloL (COREG) 25 mg Oral Tablet Take 25 mg by mouth 2 times daily (with meals). added in this encounter Additional Health Concerns Infection Onset Date Last Indicated Resolved Time ESBL organism 07/16/2022 07/16/2022 Assessment Noted Time A fall risk assessment has been complete d for the patient 10/28/2024 8:02 AM EDT documented as of this encounter Care Teams Molding Machine Operator Relationship Specialty Start Date End Date Apolinar Aldana MD [address] [place] [address] PCP - General Internal Medicine 07/13/22 documented as of this encounter
--- OUTSIDE RECORDS SUMMARY | 2024-10-29 10:30 | XMS_ITS | Encounter Summary ---
Author Organization [employer] ([place], [place], [place], [place]) Address [address] [place] [address] Care Team Providers Care Director Of Sustainable Design Name Role Phone Martinez Canseco MD Primary Care Provider [phone] Reason for Visit * Reason Comments Follow-up 2 year follow up on Liver MRI. Pt states he has no changes, no new symptoms. Encounter Details Date Type Department Care Team (Late st Contact Info) Description 10/29/2024 10:30 AM EDT Audio - Telemedicine [facility] [address] [place] [address] [place] [phone] [place] [address] [place] [address] [address] [place] [address] Liver mass (Primary Dx) Social History Tobacco Use Types Packs/Day Years Used Date Smoking Tobacco: Every Day Cigarettes Smokeless Tobacco: Never Tobacco Cessation:Ready to Q uit: Not Asked; Counseling Given: Not Answered Alcohol Use Standard Drinks/Week Comments Yes 0 (1 standard drink = 0.6 oz pur e alcohol) Family and Community Support Answer Rufus e Recorded Help with Day to Day Activities Not on file 03/31/2023 Feeling Lonely or Isolated Not on file 03/31 Educational Attainment Answer Date Iain rded Speak language other than Welsh at home Not on file 03/31/2023 Want [...] on file documented as of this encounter Progress Notes * Adalberto Painting MD - 10/29/2024 10:30 AM EDT Type of Service: Office Visit via Telemedicine Subjective: Patient ID: Augusto Hansen is a 74 y.o. male. Telemedicine Informed Consent: Telemedicine Audio ONLY Informed Consent: The risks, benefits, and alternatives to the telehealth visit were explained to the patient and the patient and/or caregiver consented to this modality of care. The telehealth visit was carried out via telephone. This telemedicine service was a real-time, two-way interactive audio communication between the patient and the provider. All the parties involved were identified and approved by the patient prior to the consult. Any physical exam was assisted by the patient. Unless noted otherwise, the provider was located at their usual clinic location, and the patient was at their place of residence. Patient identity was confirmed by having the patient state their name and their date. All communications with the patient (verbal and written) were documented in the patient's medical record per documentation standards. Mode of Transmission: Telemedicine via audio ONLY telecommunication: Audio Call ONLY: Total time: 5 minutes Basis for Telemedicine: Follow up Others in Attendance: None PATIENT LOCATION ([facility], Facility Type): [address] [place] [phone] PROVIDER LOCATION ([facility], [facility], Facility Type): [facility] [address] [place] [phone] Dept Dept START TIME: 10:30am STOP TIME: 1048 Chief Complaint Patient presents with Follow-up 2 year follow up on Liver MRI. Pt states he has no changes, no new symptoms. I have reviewed and/or updated the following: MRI liver MRI HPI Patient in follow-up from an MRI of his liver. Stable liver nodule. No complaints. Review of Systems Constitutional: Negative. HENT: Negative. Eyes: Negative. Respiratory: Negative. Cardiovascular: Negative. Gastrointestinal: Negative. Endocrine: Negative. Genitourinary: Negative. Musculoskeletal: Negative. Skin: Negative. Allergic/Immunologic: Negative. Neurological: Negative. Hematological: Negative. Psychiatric/Behavioral: Negative. Objective: Outpatient Medications Prior to Visit Medication Sig Dispense Refill amLODIPine (NORVASC) 5 MG tablet Take 1 tablet (5 mg total) by mouth daily. aspirin 81 MG EC tablet Take 1 tablet (81 mg total) by mouth. atorvastatin (LIPITOR) 20 MG tablet Take 1 tablet (20 mg total) by mouth daily. carvediloL (COREG) 25 MG tablet Take 1 tablet (25 mg total) by mouth 2 (two) times daily. No facility-administered medications prior to visit. Physical Exam There were no vitals filed for this visit. There is no height or weight on file to calculate BMI. Assessment/Plan: Problem List Items Addressed This Visit None Visit Diagnoses Liver mass - Primary Stable, 26 mm right hepatic lobe lobular mass. Unclear etiology. Perhaps related to deformity of the gallbladder versus other lesion. He has remained stable since 2020. [place]ham very likely to be benign by our radiologist. Will continue follow-up with a 2-year MRI and follow-up with us. No follow-ups on file. Discussion: documented in this encounter Plan of Treatment Not on file documented as of this encounter Visit Diagnoses Diagnosis Liver mass- Primary Unspecified disorder of liver documented in this encounter Care Teams Director Of Sustainable Design Relationship Specialty Start Date End Date Martinez Canseco MD [address] [place] [address] PCP - General Family Medicine 10/05/22 documented as of this encounter
[2024-11-10 15:58] LABS: Anion Gap 11.5 mEq/L (5-15); Blood Urea Nitrogen 23 mg/dl (9-20); Calcium 10.0 mg/dl (8.4-10.2); Carbon Dioxide 32 mmol/L (22.0-30.0); Chloride 100 mmol/L (98-107); Creatinine,Serum 1.30 mg/dl (0.66-1.25); Estimated Glomerular Filt Rate 54 ml/min (>60); GFR (African American) 66 ML/MIN (>60); Glucose 97 mg/dl (74-100); Potassium 4.5 mmoL/L (3.5-5.1); Sodium 139 mmol/L (136-145)
--- OUTSIDE RECORDS SUMMARY | 2024-11-12 12:33 | XMS_ITS | Encounter Summary ---
Author Organization [employer] ([place], [place], [place], [place]) Address [address] [place] [address] Care Team Providers Care Service Learning Coordinator Name Role Phone Martinez Canseco MD Primary Care Provider [phone] Encounter Details Date Type Department Care Team (Late st Contact Info) Description 09/02/2018 Transcribed Document [facility] [place] [address] [place] [address] ProviderIvan MD [address] [place] [address] Social History Tobacco Use Types Packs/Day Years [...] Referral Reason Comment : order for routine platform worker visit Ministry Provided to : Patient, Family/Significant other Ministry Comment/Summary Points : patient's brother, Elpidio,. present during this visit. Spiritual Framework : Unknown Zoroastrianism Preference : No listed preference TL PETIT Chaplain - 09/02/2018 17:17 EDT Spiritual Assessment Patient's Sense of Hope : Strength in patient's life Will to Continue : Yes Sense of Gratitude : Yes Spiritual Assessment Comment/Summary Points : Augusto welcomed visit from a platform worker, though he was soemwhat reluctant to talk about anything spiritual. His brother, Elpidio, is bedside providing excellent support. [facility] Augusto's daughter plans to come tonight and [...] - 09/02/2018 17:17 EDT Electronically signed by [facility] Conversion Market Director Cerner at 07/05/2022 8:34 PM CDT documented in this encounter Plan of Treatment Not on file documented as of this encounter Visit Diagnoses Not on filedocumented in this encounter Care Teams Service Learning Coordinator Relationship Specialty Start Date End Date Martinez Canseco MD [address] [place] [address] PCP - General Family Medicine 10/05/22 documented as of this encounter
--- OUTSIDE RECORDS SUMMARY | 2024-11-12 12:33 | XMS_ITS | Encounter Summary ---
Author Organization [employer] ([place], [place], [place], [place]) Address [address] [place] [address] Care Team Providers Care Digital Librarian Name Role Phone Martinez Canseco MD Primary Care Provider [phone] Encounter Details Date Type Department Care Team (Late st Contact Info) Description 09/11/2018 Transcribed Document [facility] [place] [address] [place] [address] ProviderIvan MD [address] [place] [address] Social History Tobacco Use Types [...] Ivan ProviderMD - 09/11/2018 1:00 PM CDT [facility] Endo PreOp Summary Primary Physician: ARLETTE DE JESUS MD Finalized Date/Time: 09/11/18 08:07:13 Pt. Name: AUGUSTO PACHECO/Sex: 1950 Male Med Rec #: [id number] Physician: ESVIN BUTTS MD-CAT Financial #: [id number] Pt. Type: I Room/Bed: [facility]/1 Admit/Disch: 09/02/18 14:21:00 - Institution: [facility] Endo PreOp Case Times Entry 1 In Preop 09/11/18 08:02:00 Ready for Holding n/a Room Patient Ready for n/a Surgery Patient Out of Preop 09/11/18 08:07:00 Patient Out of n/a Holding Room Last Modified By: SUSHMA LOPEZ RN 09/11/18 08:07:11 [facility] Endo PreOp Case Times Audit 09/11/18 08:07:11 Surface Lay Out Technician: SPENCEAM Modifier: SPENCEAM <+> 1 Patient Out of Preop Finalized By: SUSHMA LOPEZ, RN Document Signatures Signed By: SUSHMA LOPEZ RN 09/11/18 08:07 Electronically signed by Destiny [facility] Conversion Saw Tailer Cerner at 07/05/2022 8:48 PM CDT documented in this encounter Plan of Treatment Not on file documented as of this encounter Visit Diagnoses Not on filedocumented in this encounter Care Teams Digital Librarian Relationship Specialty Start Date End Date Martinez Canseco MD [address] [place] [address] PCP - General Family Medicine 10/05/22 documented as of this encounter
--- OUTSIDE RECORDS SUMMARY | 2024-11-12 12:33 | XMS_ITS | Encounter Summary ---
Author Organization [employer] ([place], [place], [place], [place]) Address [address] [place] [address] Care Team Providers Care Motorized Squad Lieutenant Name Role Phone Martinez Canseco MD Primary Care Provider [phone] Encounter Details Date Type Department Care Team (Late st Contact Info) Description 09/03/2018 Transcribed Document [facility] [place] Family Medicine [address] [place] [address] ProviderIvan MD [address] [place] [address] Social History Tobacco Use Types Packs/Day Years [...] Ministry Provided to : Patient, Family/Significant other Catholic Preference : Taoism, Geovanni Spiritual Leader Requested : Yes Catholic Ritual/Sacrament Needed : Yes Taoism Sacrament of the Sick/Anointing Needed : Yes FRIEDA PIZANO - 09/04/2018 12:20 EDT Spiritual Assessment Spiritual Assessment Comment/Summary Points : Pre-surgery visit. Daughter and brother present. Provided spiritual support. Contacted Kristy Lira for window cleaner at patient's request for confession and anointing. Spirital Assessment Comment/Summary Report : SPIRITUAL ASSESSMENT COMMENT/SUMMARY Spiritual Assessment Comment/Summary 09/02/18 15:03:00 Augusto welcomed visit from a fabric coating supervisor, though he was soemwhat reluctant to talk about anything spiritual. His brother, Elpidio, is bedside providing excellent support. [facility] Augusto's daughter plans to come tonight and stay with him in the room. Augusto is a practical person, with a dry wit humor. He seems to want to keep things a bit light hearted. Excellent conversation. Signed By: TL PETIT, FRIEDA Villanueva P - 09/04/2018 12:20 EDT Interventions Emotional Support : Empathic/Engaged listening, Family/Significant other supported Spiritual and Catholic : Verify apurva group connection, associate store leader/community contacted, Spiritual/Catholic support provided FRIEDA PIZANO P - 09/04/2018 12:20 EDT documented in this encounter Plan of Treatment Not on file documented as of this encounter Visit Diagnoses Not on filedocumented in this encounter Care Teams Motorized Squad Lieutenant Relationship Specialty Start Date End Date Martinez Canseco MD [address] [place] [address] PCP - General Family Medicine 10/05/22 documented as of this encounter
--- OUTSIDE RECORDS SUMMARY | 2024-11-12 12:33 | XMS_ITS | Encounter Summary ---
Author Organization [employer] ([place], [place], [place], [place]) Address [address] [place] [address] Care Team Providers Care Boiler Maker Name Role Phone Martinez Canseco MD Primary Care Provider [phone] Encounter Details Date Type Department Care Team (Late st Contact Info) Description 09/03/2018 Transcribed Document [facility] [place] [address] [place] [address] ProviderIvan MD [address] [place] [address] Social History Tobacco Use Types Packs/Day Years [...] Spiritual Care Spiritual Care Referred by : Janitor Cleaner initiated Reason for Visit : Initial Ministry Provided to : Patient Intervention/Comment/Summary Points : Initial Spiritual Care visit by Nighat coello. Restoration Preference : No listed preference FRIEDA PIZANO - 09/03/2018 14:03 EDT documented in this encounter Plan of Treatment Not on file documented as of this encounter Visit Diagnoses Not on filedocumented in this encounter Care Teams Boiler Maker Relationship Specialty Start Date End Date Martinez Canseco MD [address] [place] [address] PCP - General Family Medicine 10/05/22 documented as of this encounter
--- OUTSIDE RECORDS SUMMARY | 2024-11-12 12:33 | XMS_ITS | Encounter Summary ---
Author Organization [employer] ([place], [place], [place], [place]) Address [address] [place] [address] Care Team Providers Care Housing Coordinator Name Role Phone Martinez Canseco MD Primary Care Provider [phone] Encounter Details Date Type Department Care Team (Late st Contact Info) Description 09/12/2018 Transcribed Document [facility] [place] Family Medicine [address] [place] [address] ProviderIvan MD [address] [place], [place] [id number] Social History Tobacco Use Types Packs/Day Years [...] on filedocumented in this encounter Care Teams Housing Coordinator Relationship Specialty Start Date End Date Martinez Canseco MD [address] [place] [address] PCP - General Family Medicine 10/05/22 documented as of this encounter
--- OUTSIDE RECORDS SUMMARY | 2024-11-12 12:33 | XMS_ITS | Encounter Summary ---
Author Organization [employer] ([place], [place], [place], [place]) Address [address] [place] [address] Care Team Providers Care Legal Intern Name Role Phone Martinez Canseco MD Primary Care Provider [phone] Encounter Details Date Type Department Care Team (Late st Contact Info) Description 09/12/2018 Transcribed Document [facility] [place] [address] [place] [address] ProviderIvan MD [address] [place], [place] [address] Social History Tobacco Use Types Packs/Day Years [...] 1950 Associated Diagnoses: None Author: ANGELINE JAY, RESPIRATORY ASSISTANT-CTS Admission Date: Discharge Date: Attending:Dr. Kyler Gaxiola, [...] Mitral valve repair using a 30 mm Subwaytronic CG annuloplasty band. 3. Coronary artery bypass [...] K/uL Interpretation: Radiology Results (Last 48 hours) [id number] -- 09/02/2018 14:21 CTA Chest PE Protocol (09/10/2018 17:15) Result: CT ANGIOGRAM THORAXHISTORY: Hypoxia. Shortness of breath.TECHNIQUE: Thin section axial CT with IV contrast supplemented [id number] MIP images. FINDINGS: Pulmonary vessels enhance in [...] ON HOSPITAL COURSE Admission ( transfer from [facility] 09/03: Carotid duplex and PFTs JESUSITA - [...] Family would like discharge to rehab to [facility] in [facility] - precert initiated Cr improved [...] early am) Pt has Rehab bed at [facility] ( [facility]), if pt remains in sinus and O2 needs are 4 liters or less,>> and SBP stable then will consider transfer tomorrow Pt seen and evaluated by Dr. Urias who agrees with above documented in this encounter Plan of Treatment Not on file documented as of this encounter Visit Diagnoses Not on filedocumented in this encounter Care Teams Legal Intern Relationship Specialty Start Date End Date Martinez Canseco MD [address] [place] [address] PCP - General Family Medicine 10/05/22 documented as of this encounter
--- OUTSIDE RECORDS SUMMARY | 2024-11-12 12:33 | XMS_ITS | Encounter Summary ---
Author Organization [employer] ([place], [place], [place], [place]) Address [address] [place] [address] Care Team Providers Care Soil Specialist Name Role Phone Martinez Canseco MD Primary Care Provider [phone] Encounter Details Date Type Department Care Team (Late st Contact Info) Description 09/05/2018 Transcribed Document [facility] [place] [address] [place] [address] ProviderIvan MD [address] [place] [address] Social History Tobacco Use Types [...] - 09/05/2018 23:40 EDT Electronically signed by [facility] Conversion Balance Truing Inspector Cerner at 07/05/2022 8:32 PM CDT documented in this encounter Plan of Treatment Not on file documented as of this encounter Visit Diagnoses Not on filedocumented in this encounter Care Teams Soil Specialist Relationship Specialty Start Date End Date Martinez Canseco MD [address] [place], [place] [id number] PCP - General Family Medicine 10/05/22 documented as of this encounter
--- OUTSIDE RECORDS SUMMARY | 2024-11-12 12:33 | XMS_ITS | Encounter Summary ---
Author Organization [employer] ([place], [place], [place], [place]) Address [address] [place] [address] Care Team Providers Care Advertising Assistant Name Role Phone Martinez Canseco MD Primary Care Provider [phone] Encounter Details Date Type Department Care Team (Late st Contact Info) Description 09/12/2018 Transcribed Document [facility] Family Medicine [address] [place] [address] ProviderIvan MD [address] [place] [address] Social History Tobacco Use Types [...] 09/12/2018 5:00 EDT by Kalen El [facility] Height and Weight, Routine Routine Weight Source : Bed scale Routine Weight Entry Format : Val[place]yer Routine Weight, Pounds : 211 lb Routine Weight, Ounces : 8 oz Routine Weight Calculation : 96.14 kg Height Source : Stated Height Entry Format : [place]yer Height, Feet : 6 ft Height, Inches : 1 Inch Clinical Height : 185.42 cm Body Surface Area (BSA), Routine : 2.21 m2 Body Mass Index (BMI), Routine : 27.96 kg/m2 Kalen El, TELEPHONE AD T[facility] - 09/12/2018 4:23 EDT Electronically signed by Destiny [facility] Conversion High Density Press Operator Cerner at 07/05/2022 8:26 PM CDT documented in this encounter Plan of Treatment Not on file documented as of this encounter Visit Diagnoses Not on filedocumented in this encounter Care Teams Advertising Assistant Relationship Specialty Start Date End Date Martinez Canseco MD [address] [place] [address] PCP - General Family Medicine 10/05/22 documented as of this encounter
--- OUTSIDE RECORDS SUMMARY | 2024-11-12 12:33 | XMS_ITS | Encounter Summary ---
Author Organization [employer] ([place], [place], [place], [place]) Address [address] [place] [address] Care Team Providers Care Book Solicitor Name Role Phone Martinez Canseco MD Primary Care Provider [phone] Encounter Details Date Type Department Care Team (Late st Contact Info) Description 09/04/2018 Transcribed Document [facility] [place] [address] [place] [address] ProviderIvan MD [address] [place], [place] [address] Social History Tobacco Use Types Packs/Day Years [...] the text rendition version of the form. Electronically signed by Destiny, [facility] Conversion Drop Wire Builder Cerner at 07/05/2022 8:31 PM CDT documented in this encounter Plan of Treatment Not on file documented as of this encounter Visit Diagnoses Not on filedocumented in this encounter Care Teams Book Solicitor Relationship Specialty Start Date End Date Martinez Canseco MD [address] [place] [address] PCP - General Family Medicine 10/05/22 documented as of this encounter
--- OUTSIDE RECORDS SUMMARY | 2024-11-12 12:33 | XMS_ITS | Encounter Summary ---
Author Organization [employer] ([place], [place], [place], [place]) Address [address] [place] [address] Care Team Providers Care Journal Box Inspector Name Role Phone Martinez Canseco MD Primary Care Provider [phone] Encounter Details Date Type Department Care Team (Late st Contact Info) Description 09/03/2018 Transcribed Document [facility] [place] [address] [place] [address] ProviderIvan MD [address] [place], [place] [address] Social History Tobacco Use Types Packs/Day Years [...] 09/03/2018 16:00 EDT Electronically signed by Destiny [facility] Conversion Phthalic Acid Purifier Cerner at 07/05/2022 8:44 PM CDT documented in this encounter Plan of Treatment Not on file documented as of this encounter Visit Diagnoses Not on filedocumented in this encounter Care Teams Journal Box Inspector Relationship Specialty Start Date End Date Martinez Canseco MD [address] [place] [address] PCP - General Family Medicine 10/05/22 documented as of this encounter
--- OUTSIDE RECORDS SUMMARY | 2024-11-12 12:33 | XMS_ITS | Encounter Summary ---
Author Organization [employer] ([place], [place], [place], [place]) Address [address] [place] [address] Care Team Providers Care First Assistant Manager Name Role Phone Martinez Canseco MD Primary Care Provider [phone] Encounter Details Date Type Department Care Team (Late st Contact Info) Description 09/03/2018 Transcribed Document [facility] [place] [address] [place] [address] ProviderIvan MD [address] [place] [address] Social History Tobacco Use Types Packs/Day Years [...] on filedocumented in this encounter Care Teams First Assistant Manager Relationship Specialty Start Date End Date Martinez Canseco MD [address] [place] [address] PCP - General Family Medicine 10/05/22 documented as of this encounter
--- OUTSIDE RECORDS SUMMARY | 2024-11-12 12:33 | XMS_ITS | Encounter Summary ---
Author Organization [employer] ([place], [place], [place], [place]) Address [address] [place] [address] Care Team Providers Care Bank Vault Attendant Name Role Phone Martinez Canseco MD Primary Care Provider [phone] Encounter Details Date Type Department Care Team (Late st Contact Info) Description 09/03/2018 Transcribed Document [facility] [place] [address] [place] [address] ProviderIvan MD [address] [place] [address] Social History Tobacco Use Types Packs/Day Years [...] 15:02 EDT Diastolic Blood Pressure 97 mmHg DE General: Alert and oriented, No acute distress. [...] Radiology results Radiology Results (Last 48 hours) [id number] -- 09/02/2018 14:21 CR Chest 1 Vw [...] on filedocumented in this encounter Care Teams Bank Vault Attendant Relationship Specialty Start Date End Date Martinez Canseco MD [address] [place] [address] PCP - General Family Medicine 10/05/22 documented as of this encounter
--- OUTSIDE RECORDS SUMMARY | 2024-11-12 12:33 | XMS_ITS | Encounter Summary ---
Author Organization [employer] ([place], [place], [place], [place]) Address [address] [place] [address] Care Team Providers Care Siebel Developer Name Role Phone Martinez Canseco MD Primary Care Provider [phone] Encounter Details Date Type Department Care Team (Late st Contact Info) Description 09/05/2018 Transcribed Document [facility] [place] [address] [place] [address] ProviderIvan MD [address] [place], [place] [address] Social History Tobacco Use Types Packs/Day Years [...] On: 09/05/2018 14:35 EDT by JARET BAUM Rn-Print Shop HelperSewing Machine Operator Semiautomatic Progress Note Discharge Arrangements : Patient Post-Acute Information Patient Name: AUGUSTO PACHECO Gender: Male : [birth year] Age: 67 Years No Post-Acute Placement(s) Listed No Post-Acute Service(s) Listed No [place] Referral(s) Listed Discharge Options Discussed with Patient : DME, Home Health Does the Patient have a Floor to SNF Benefit? : Yes Is the Patient Meeting Medical Necessity : Yes JARET BAUM, Rn-Print Shop Helper - 09/05/2018 14:35 EDT Narrative Progress Note [...] and will possibly need short-term rehab at [place], [place]). CM will discuss ongoing discharge planning with patient. Will need PT/OT orders when extubated. JARET BAUM Rn-Print Shop Helper - 09/05/2018 14:35 EDT documented in this encounter Plan of Treatment Not on file documented as of this encounter Visit Diagnoses Not on filedocumented in this encounter Care Teams Siebel Developer Relationship Specialty Start Date End Date Martinez Canseco MD [address] [place] [address] PCP - General Family Medicine 10/05/22 documented as of this encounter
--- OUTSIDE RECORDS SUMMARY | 2024-11-12 12:33 | XMS_ITS | Encounter Summary ---
Author Organization [employer] ([place], [place], [place], [place]) Address [address] [place] [address] Care Team Providers Care Coffee Urn Attendant Name Role Phone Martinez Canseco MD Primary Care Provider [phone] Encounter Details Date Type Department Care Team (Late st Contact Info) Description 09/11/2018 Transcribed Document [facility] [place] Family Medicine [address] [place] [address] ProviderIvan MD [address] [place] [address] Social History Tobacco Use Types [...] On: 09/11/2018 11:03 EDT by Peggy Montez Coke Handling Supervisor Attempt to Treat Unable to Treat Due To : Patient on hold Inability to Treat Comment : nsg held pt due to needing to stay on Bipap and rest to bring O2 sats up, will try back as time permits Notification : Peggy Alvarez Coke Handling Supervisor - 09/11/2018 16:39 EDT Electronically signed by Destiny [facility] Conversion Packing Room Supervisor Cerner at 07/05/2022 8:43 PM CDT documented in this encounter Plan of Treatment Not on file documented as of this encounter Visit Diagnoses Not on filedocumented in this encounter Care Teams Coffee Urn Attendant Relationship Specialty Start Date End Date Martinez Canseco MD [address] [place] [address] PCP - General Family Medicine 10/05/22 documented as of this encounter
--- OUTSIDE RECORDS SUMMARY | 2024-11-12 12:33 | XMS_ITS | Encounter Summary ---
Author Organization [employer] ([place], [place], [place], [place]) Address [address] [place] [address] Care Team Providers Care Retail Financial Analyst Name Role Phone Martinez Canseco MD Primary Care Provider [phone] Encounter Details Date Type Department Care Team (Late st Contact Info) Description 09/04/2018 Transcribed Document [facility] [place] [address] [place] [address] ProviderIvan MD [address] [place], [place] [address] Social History Tobacco Use Types Packs/Day Years [...] Intensity : Non pain medication administration Trudy Alarcon, RN - 09/04/2018 13:59 EDT Image 4 - Images currently included in the form version of this document have not been included in the text rendition version of the form. documented in this encounter Plan of Treatment Not on file documented as of this encounter Visit Diagnoses Not on filedocumented in this encounter Care Teams Retail Financial Analyst Relationship Specialty Start Date End Date Martinez Canseco MD [address] [place] [address] PCP - General Family Medicine 10/05/22 documented as of this encounter
--- OUTSIDE RECORDS SUMMARY | 2024-11-12 12:33 | XMS_ITS | Encounter Summary ---
Author Organization [employer] ([place], [place], [place], [place]) Address [address] [place] [address] Care Team Providers Care Acid Supervisor Name Role Phone Martinez Canseco MD Primary Care Provider [phone] Encounter Details Date Type Department Care Team (Late st Contact Info) Description 09/11/2018 Transcribed Document [facility] [place] Family Medicine [address] [place] [address] ProviderIvan MD [address] [place] [address] Social History Tobacco Use Types [...] on filedocumented in this encounter Care Teams Acid Supervisor Relationship Specialty Start Date End Date Martinez Canseco MD [address] [place] [address] PCP - General Family Medicine 10/05/22 documented as of this encounter
--- OUTSIDE RECORDS SUMMARY | 2024-11-12 12:33 | XMS_ITS | Encounter Summary ---
Author Organization [employer] ([place], [place], [place], [place]) Address [address] [place] [address] Care Team Providers Care Slat Basket Maker Helper Machine Name Role Phone Martinez Canseco MD Primary Care Provider [phone] Encounter Details Date Type Department Care Team (Late st Contact Info) Description 09/04/2018 Transcribed Document [facility] [place] Family Medicine [address] [place] [address] ProviderIvan MD [address] [place] [address] Social History Tobacco Use Types Packs/Day Years [...] ~20-25 kcal/kg adj weight, 1.2 gm prokg): 4541-4677 kcal; 120+ gm pro MAGDI ZUNIGA RD, CARRO[place] - 09/05/2018 10:10 EDT Nutrition Diagnoses Oral or Nutrition Support Intake : Inadequate oral intake Oral or Nutr Support Intake Related To : resp function + vent Oral or Nutr Support Intake Evidenced by : NPO, need for EN Oral or Nutrition Support Intake Status : Active MAGDI ZUNIGA RD, [place] - 09/05/2018 10:10 EDT Nutrition Interventions Enteral/Parenteral [...] weight changes High Risk MAGDI ZUNIGA RD, - 09/05/2018 10:10 EDT documented in this encounter Plan of Treatment Not on file documented as of this encounter Visit Diagnoses Not on filedocumented in this encounter Care Teams Slat Basket Maker Helper Machine Relationship Specialty Start Date End Date Martinez Canseco MD [address] [place] [address] PCP - General Family Medicine 10/05/22 documented as of this encounter
--- OUTSIDE RECORDS SUMMARY | 2024-11-12 12:33 | XMS_ITS | Encounter Summary ---
Author Organization [employer] ([place], [place], [place], [place]) Address [address] [place] [address] Care Team Providers Care Tax Director Name Role Phone Martinez Canseco MD Primary Care Provider [phone] Encounter Details Date Type Department Care Team (Late st Contact Info) Description 09/05/2018 Transcribed Document [facility] [place] [address] [place] [address] ProviderIvan MD [address] [place], [place] [address] Social History Tobacco Use Types Packs/Day Years [...] Ivan ProviderMD - 09/05/2018 2:00 AM CDT Shot Peen Operator Details Entered On: 09/05/2018 4:17 EDT Performed [...] on filedocumented in this encounter Care Teams Tax Director Relationship Specialty Start Date End Date Martinez Canseco MD [address] [place] [address] PCP - General Family Medicine 10/05/22 documented as of this encounter
--- OUTSIDE RECORDS SUMMARY | 2024-11-12 12:33 | XMS_ITS | Encounter Summary ---
Author Organization [employer] ([place], [place], [place], [place]) Address [address] [place] [address] Care Team Providers Care Casting Tester Name Role Phone Martinez Canseco MD Primary Care Provider [phone] Encounter Details Date Type Department Care Team (Late st Contact Info) Description 09/03/2018 Transcribed Document [facility] Pulm & Critical Care Medicine [address] [place] [address] [address] Leeroy Garvey MD [address] [facility] [address] [place] [address] Social History Tobacco Use Types [...] on filedocumented in this encounter Care Teams Casting Tester Relationship Specialty Start Date End Date Martinez Canseco MD [address] [place] [address] PCP - General Family Medicine 10/05/22 documented as of this encounter
--- OUTSIDE RECORDS SUMMARY | 2024-11-12 12:33 | XMS_ITS | Encounter Summary ---
Author Organization [employer] ([place], [place], [place], [place]) Address [address] [place] [address] Care Team Providers Care Case Maker Name Role Phone Martinez Canseco MD Primary Care Provider [phone] Encounter Details Date Type Department Care Team (Late st Contact Info) Description 09/04/2018 Transcribed Document [facility] [place] Family Medicine [address] [place] [address] ProviderIvan MD [address] [place] [address] Social History Tobacco Use Types [...] Source : Stated Height Entry Format : Yell Height, Feet : 6 ft Height, Inches : 1 Inch Clinical Height : 185.42 cm Body Surface Area (BSA), Routine : 2.26 m2 Body Mass Index (BMI), Routine : 29.64 kg/m2 Emmie Slater Rn - 09/05/2018 4:17 EDT Electronically signed by Ki Dixon Conversion Merchandise For Resale Purchasing Agent Cerner at 07/05/2022 8:51 PM CDT documented in this encounter Plan of Treatment Not on file documented as of this encounter Visit Diagnoses Not on filedocumented in this encounter Care Teams Case Maker Relationship Specialty Start Date End Date Martinez Canseco MD [address] [place] [address] PCP - General Family Medicine 10/05/22 documented as of this encounter
--- OUTSIDE RECORDS SUMMARY | 2024-11-12 12:33 | XMS_ITS | Encounter Summary ---
Author Organization [employer] ([place], [place], [place], [place]) Address [address] [place] [address] Care Team Providers Care Police Guard Name Role Phone Martinez Canseco MD Primary Care Provider [phone] Encounter Details Date Type Department Care Team (Late st Contact Info) Description 09/12/2018 Transcribed Document [facility] [place] Family Medicine [address] [place] [address] ProviderIvan MD [address] [place], [place] [address] Social History Tobacco Use Types Packs/Day Years [...] Performed On: 09/12/2018 17:00 EDT by Hope Troy RN Chart Check Powerplans Initiated/Discontinued as Appropriate : Yes All Active Orders Reviewed : Yes Hope Troy, RN - 09/12/2018 17:35 EDT Electronically signed by Destiny [facility] Conversion Grain Oilseed Or Pasture Grower Cerner at 07/05/2022 8:30 PM CDT documented in this encounter Plan of Treatment Not on file documented as of this encounter Visit Diagnoses Not on filedocumented in this encounter Care Teams Police Guard Relationship Specialty Start Date End Date Martinez Canseco MD [address] [place] [address] PCP - General Family Medicine 10/05/22 documented as of this encounter
--- OUTSIDE RECORDS SUMMARY | 2024-11-12 12:33 | XMS_ITS | Encounter Summary ---
Author Organization [employer] ([place], [place], [place], [place]) Address [address] [place] [address] Care Team Providers Care Software Engineer Intern Name Role Phone Martinez Canseco MD Primary Care Provider [phone] Encounter Details Date Type Department Care Team (Late st Contact Info) Description 09/02/2018 Transcribed Document [facility] [place] Family Medicine [address] [place] [address] ProviderIvan MD [address] [place] [address] Social History Tobacco Use Types Packs/Day Years [...] #2 Relationship : daughter Primary Language : Colombian Communication Barrier : None Soni Bland RN [...] Scale Risk Level : 25-45 Medium Risk Bradley Fall Interventions : Adequate lighting, Assistive devices [...] Source : Stated Height Entry Format : [place] Height, Feet : 6 ft(Converted to: 183 cm, 72 Inch) Height, Inches : 1 Inch(Converted to: 0 ft 1 Inch, 2.54 cm) Clinical Height : 185.42 cm Weight Source : Bed scale Weight Entry Format : [place] Clinical Dosing Weight : 92.27 kg Weight, Pounds : 203 lb Body Surface Area (BSA) : 2.17 m2 Body Mass Index : 26.8 kg/m2 (HI) [place] Body Weight : 79 kg Soni Bland [...] - 09/02/2018 14:54 EDT Electronically signed by Destiny [facility] Conversion Instructional Assistant Cerner at 07/05/2022 8:52 PM CDT documented in this encounter Plan of Treatment Not on file documented as of this encounter Visit Diagnoses Not on filedocumented in this encounter Care Teams Software Engineer Intern Relationship Specialty Start Date End Date Martinez Canseco MD [address] [place] [address] PCP - General Family Medicine 10/05/22 documented as of this encounter
--- OUTSIDE RECORDS SUMMARY | 2024-11-12 12:33 | XMS_ITS | Encounter Summary ---
Author Organization [employer] ([place], [place], [place], [place]) Address [address] [place] [address] Care Team Providers Care Poultry Hatchery Laborer Name Role Phone Martinez Canseco MD Primary Care Provider [phone] Encounter Details Date Type Department Care Team (Late st Contact Info) Description 09/12/2018 Transcribed Document [facility] [place] [address] [place] [address] ProviderIvan MD [address] [place] [address] Social History Tobacco Use Types [...] Hope Troy RN - 09/12/2018 13:20 EDT documented in this encounter Plan of Treatment Not on file documented as of this encounter Visit Diagnoses Not on filedocumented in this encounter Care Teams Poultry Hatchery Laborer Relationship Specialty Start Date End Date Martinez Canseco MD [address] [place] [address] PCP - General Family Medicine 10/05/22 documented as of this encounter
--- OUTSIDE RECORDS SUMMARY | 2024-11-12 12:33 | XMS_ITS | Encounter Summary ---
Author Organization [employer] ([place], [place], [place], [place]) Address [address] [place] [address] Care Team Providers Care Water Pollution Specialist Name Role Phone Martinez Canseco MD Primary Care Provider [phone] Encounter Details Date Type Department Care Team (Late st Contact Info) Description 09/04/2018 Transcribed Document [facility] [place] Family Medicine [address] [place] [address] ProviderIvan MD [address] [place] [address] Social History Tobacco Use Types [...] CC1: Denzel Anguiano M.D. Electronically signed by [facility] Conversion Loan Operations Manager Cerner at 07/05/2022 8:29 PM CDT documented in this encounter Plan of Treatment Not on file documented as of this encounter Visit Diagnoses Not on filedocumented in this encounter Care Teams Water Pollution Specialist Relationship Specialty Start Date End Date Martinez Canseco MD [address] [place] [address] PCP - General Family Medicine 10/05/22 documented as of this encounter
--- OUTSIDE RECORDS SUMMARY | 2024-11-12 12:34 | XMS_ITS | Encounter Summary ---
Author Organization [employer] ([place], [place], [place], [place]) Address [address] [place] [address] Care Team Providers Care Insulation Hoseman Name Role Phone Martinez Canseco MD Primary Care Provider [phone] Encounter Details Date Type Department Care Team (Late st Contact Info) Description 09/13/2018 Transcribed Document [facility] [place] Family Medicine [address] [place] [address] ProviderIvan MD [address] [place], [place] [address] Social History Tobacco Use Types Packs/Day Years [...] Ivan ProviderMD - 09/13/2018 2:00 AM CDT Cafe Or Restaurant Manager Details Entered On: 09/13/2018 0:15 EDT Performed [...] 09/13/2018 0:15 EDT Electronically signed by Destiny [facility] Conversion Laborer Pie Bakery Cerner at 07/05/2022 8:52 PM CDT documented in this encounter Plan of Treatment Not on file documented as of this encounter Visit Diagnoses Not on filedocumented in this encounter Care Teams Insulation Hoseman Relationship Specialty Start Date End Date Martinez Canseco MD [address] [place], [place] [address] PCP - General Family Medicine 10/05/22 documented as of this encounter
--- OUTSIDE RECORDS SUMMARY | 2024-11-12 12:34 | XMS_ITS | Encounter Summary ---
Author Organization [employer] ([place], [place], [place], [place]) Address [address] [place] [address] Care Team Providers Care Referral Agent Name Role Phone Martinez Canseco MD Primary Care Provider [phone] Encounter Details Date Type Department Care Team (Late st Contact Info) Description 09/05/2018 Transcribed Document [facility] [place] [address] [place] [address] ProviderIvan MD [address] [place], [place] [address] Social History Tobacco Use Types Packs/Day Years [...] and emphysematous lungs; CAD (coronary artery disease), [place] coronary artery Author: DIOMEDES KLEIN PA Basic [...] No edema. Gastrointestinal: Soft. Integumentary: Warm, Dry, Christopher, Aquacel dressing is C/D/I. Psychiatric: Behavior: Restless. Review / Management Results review: SEP 05 03:55 139 109 14 / H 180 4.7 23 0.90 \ SEP 05 03:55 \ L 11.9 / H 15.5 177 / L 35.0 \. Radiology results Radiology Results (Last 48 hours) [id number] -- 09/02/2018 14:21 CR Chest 1 Vw [...] Pre-Op Diagnosis, Medical. CAD (coronary artery disease), [place] coronary artery - Admitting, Medical. CAD (coronary artery disease), [place] coronary artery - Discharge, Medical. Electronically signed by Destiny, [facility] Conversion Siebel Crm Developer Cerner at 07/05/2022 8:49 PM CDT documented in this encounter Plan of Treatment Not on file documented as of this encounter Visit Diagnoses Not on filedocumented in this encounter Care Teams Referral Agent Relationship Specialty Start Date End Date Martinez Canseco MD [address] [place] [address] PCP - General Family Medicine 10/05/22 documented as of this encounter
--- OUTSIDE RECORDS SUMMARY | 2024-11-12 12:34 | XMS_ITS | Encounter Summary ---
Author Organization [employer] ([place], [place], [place], [place]) Address [address] [place] [address] Care Team Providers Care Tools And Parts Attendant Name Role Phone Martinez Canseco MD Primary Care Provider [phone] Encounter Details Date Type Department Care Team (Late st Contact Info) Description 09/04/2018 Transcribed Document [facility] [place] [address] [place] [address] ProviderIvan MD [address] [place] [address] Social History Tobacco Use Types [...] Nino MD - 09/04/2018 5:35 PM CDT [facility] Main OR IntraOp Summary Primary Physician: ESVNI BUTTS MD-CAT Finalized Date/Time: 09/05/18 09:42:31 Pt. Name: IZABELLA PACHECO/Sex: 1950 Male Med Rec #: [id number] Physician: ESVIN BUTTS MD-CAT Financial #: [id number] Pt. Type: I Room/Bed: 02/1 Admit/Disch: 09/02/18 14:21:00 - Institution: [facility] IntraOp Case Attendance Entry 1 Entry 2 Entry 3 Case Attendee ESVIN BUTTS GRAFF, WAYNE B, MD Grimes, Jennifer, [facility] MD-CAT Pref Card Builder Role Performed Surgeon/Proceduralist, Anesthesiologist Airplane Dispatcher, First First Time In 09/04/18 16:52:00 09/04/18 16:52:00 09/04/18 16:52:00 Time Out 09/04/18 23:06:00 09/04/18 23:06:00 09/04/18 22:27:00 Procedure Vein Stevenson Vein Stevenson Vein Stevenson Endosaphenous, Endosaphenous, Endosaphenous, Transesophageal Transesophageal Transesophageal Echocardiogram, [...] Role Performed Scrub, First Scrub, Second Physician machine assistant Time In 09/04/18 16:52:00 09/04/18 16:52:00 09/04/18 16:52:00 Time Out 09/04/18 23:06:00 09/04/18 23:06:00 09/04/18 23:06:00 Procedure Vein Stevenson Vein Stevenson Vein Stevenson Endosaphenous, Endosaphenous, Endosaphenous, Transesophageal Transesophageal Transesophageal Echocardiogram, CABG w Echocardiogram, CABG w Echocardiogram, CABG w Mitral Valve Mitral Valve Mitral Valve Other Attendee ORIENTEE Superficial Wound Closed By: Last Modified By: CECI THOMAS 09/04/18 CEIC THOMAS 09/04/18 CECI THOMAS 09/04/18 23:06:40 23:06:40 23:06:40 Entry 7 Entry 8 Entry 9 Case Attendee Silver Bonilla, car checker EDILSON WHITT MD TERRY, JULIA Role Performed Dry Paste Supervisor Anesthesiologist Airplane Dispatcher, First Time In 09/04/18 16:52:00 09/04/18 21:23:00 09/04/18 22:24:00 Time Out 09/04/18 23:06:00 09/04/18 23:06:00 09/04/18 23:06:00 Procedure Vein Stevenson Vein Stevenson Vein Stevenson Endosaphenous, Endosaphenous, Endosaphenous, Transesophageal Transesophageal Transesophageal Echocardiogram, CABG w Echocardiogram, CABG w Echocardiogram, CABG w Mitral Valve Mitral Valve Mitral Valve Other Attendee Superficial Wound Closed By: Last Modified By: CECI THOMAS 09/04/18 CECI THOMAS 09/04/18 CECI THOMAS 09/04/18 23:06:40 23:06:40 23:06:40 [facility] IntraOp Case Attendance Audit 09/04/18 23:06:40 Passenger Booking Clerk: ADELITA Modifier: MORALESIATERRY 1 <+> Time Out 1 <*> Procedure Vein Stevenson Endosaphenous, Transesophageal Echocardiogram, CABG w Mitral Valve 2 <+> Time Out 2 <*> Procedure Vein Stevenson Endosaphenous, Transesophageal Echocardiogram, CABG w Mitral Valve 3 <*> Procedure Vein Stevenson Endosaphenous, Transesophageal Echocardiogram, CABG w Mitral Valve 4 <+> Time Out 4 <*> Procedure Vein Stevenson Endosaphenous, Transesophageal Echocardiogram, CABG w Mitral Valve 5 <+> Time Out 5 <*> Procedure Vein Stevenson Endosaphenous, Transesophageal Echocardiogram, CABG w Mitral Valve 6 <+> Time Out 6 <*> Procedure Vein Stevenson Endosaphenous, Transesophageal Echocardiogram, CABG w Mitral Valve 7 <+> Time Out 7 <*> Procedure Vein Stevenson Endosaphenous, Transesophageal Echocardiogram, CABG w Mitral Valve 8 <+> Time Out 8 <*> Procedure Vein Stevenson Endosaphenous, Transesophageal Echocardiogram, CABG w Mitral Valve 9 <+> Time Out 9 <*> Procedure Vein Stevenson Endosaphenous, Transesophageal Echocardiogram, CABG w Mitral Valve 09/04/18 22:27:20 Passenger Booking Clerk: ELISABETH Modifier: ADELITA 3 <+> Time Out 3 <*> Procedure Vein Stevenson Endosaphenous, Transesophageal Echocardiogram, CABG w Mitral Valve 09/04/18 22:25:00 Passenger Booking Clerk: ELISABETH Modifier: ELISABETH <+> 9 Case Attendee <+> 9 Role Performed <+> 9 Time In <+> 9 Procedure 09/04/18 21:29:58 Passenger Booking Clerk: ELISABETH Modifier: LINWOODKingaKELSIE <+> 8 Case Attendee <+> 8 Role Performed <+> 8 Time In <+> 8 Procedure 09/04/18 17:55:49 Passenger Booking Clerk: ELISABETH Modifier: LINWOODSKELSIE 1 <*> Procedure Vein Stevenson Endosaphenous, Transesophageal Echocardiogram, Mitral Valve Replacement, CABG w Mitral Valve 2 <*> Procedure Vein Stevenson Endosaphenous, Transesophageal Echocardiogram, Mitral Valve Replacement, CABG w Mitral Valve 3 <*> Procedure Vein Stevenson Endosaphenous, Transesophageal Echocardiogram, Mitral Valve Replacement, CABG w Mitral Valve 4 <*> Procedure Vein Stevenson Endosaphenous, Transesophageal Echocardiogram, Mitral Valve Replacement, CABG w Mitral Valve 5 <*> Procedure Vein Stevenson Endosaphenous, Transesophageal Echocardiogram, Mitral Valve Replacement, CABG w Mitral Valve 6 <*> Procedure Vein Stevenson Endosaphenous, Transesophageal Echocardiogram, Mitral Valve Replacement, CABG w Mitral Valve 7 <*> Procedure Vein Stevenson Endosaphenous, Transesophageal Echocardiogram, Mitral Valve Replacement, CABG w Mitral Valve 09/04/18 17:55:27 Passenger Booking Clerk: ELISABETH Modifier: LINWOODSKELSIE 1 <*> Procedure Coronary Artery Bypass Graft, Vein Stevenson Endosaphenous, Transesophageal Echocardiogram, Mitral Valve Replacement, CABG w Mitral Valve 2 <*> Procedure Coronary Artery Bypass Graft, Vein Stevenson Endosaphenous, Transesophageal Echocardiogram, Mitral Valve Replacement, CABG w Mitral Valve 3 <*> Procedure Coronary Artery Bypass Graft, Vein Stevenson Endosaphenous, Transesophageal Echocardiogram, Mitral Valve Replacement, CABG w Mitral Valve 4 <*> Procedure Coronary Artery Bypass Graft, Vein Stevenson Endosaphenous, Transesophageal Echocardiogram, Mitral Valve Replacement, CABG w Mitral Valve 5 <*> Procedure Coronary Artery Bypass Graft, Vein Stevenson Endosaphenous, Transesophageal Echocardiogram, Mitral Valve Replacement, CABG w Mitral Valve 6 <*> Procedure Coronary Artery Bypass Graft, Vein Stevenson Endosaphenous, Transesophageal Echocardiogram, Mitral Valve Replacement, CABG w Mitral Valve 7 <*> Procedure Coronary Artery Bypass Graft, Vein Stevenson Endosaphenous, Transesophageal Echocardiogram, Mitral Valve Replacement, CABG w Mitral Valve 09/04/18 17:52:39 Passenger Booking Clerk: ELISABETH Modifier: ISAIBRONWYNSKELSIE 1 <*> Procedure Coronary Artery Bypass Graft, Vein Stevenson Endosaphenous, Transesophageal Echocardiogram, Mitral Valve Replacement 2 <*> Procedure Coronary Artery Bypass Graft, Vein Stevenson Endosaphenous, Transesophageal Echocardiogram, Mitral Valve Replacement 3 <*> Procedure Coronary Artery Bypass Graft, Vein Stevenson Endosaphenous, Transesophageal Echocardiogram, Mitral Valve Replacement 4 <*> Procedure Coronary Artery Bypass Graft, Vein Stevenson Endosaphenous, Transesophageal Echocardiogram, Mitral Valve Replacement 5 <*> Procedure Coronary Artery Bypass Graft, Vein Stevenson Endosaphenous, Transesophageal Echocardiogram, Mitral Valve Replacement 6 <*> Procedure Coronary Artery Bypass Graft, Vein Stevenson Endosaphenous, Transesophageal Echocardiogram, Mitral Valve Replacement 7 <*> Procedure Coronary Artery Bypass Graft, Vein Stevenson Endosaphenous, Transesophageal Echocardiogram, Mitral Valve Replacement 09/04/18 17:46:43 Passenger Booking Clerk: ELISABETH Modifier: ELISABETH 1 <*> Procedure Coronary Artery Bypass Graft, Vein Stevenson Endosaphenous, Transesophageal Echocardiogram, Mitral Valve Replacement 2 <+> Time In 2 <*> Procedure Coronary Artery Bypass Graft, Vein Stevenson Endosaphenous, Transesophageal Echocardiogram, Mitral Valve Replacement 3 <+> Time In 3 <*> Procedure Coronary Artery Bypass Graft, Vein Stevenson Endosaphenous, Transesophageal Echocardiogram, Mitral Valve Replacement 4 <+> Time In 4 <*> Procedure Coronary Artery Bypass Graft, Vein Stevenson Endosaphenous, Transesophageal Echocardiogram, Mitral Valve Replacement 5 <+> Time In 5 <*> Procedure Coronary Artery Bypass Graft, Vein Stevenson Endosaphenous, Transesophageal Echocardiogram, Mitral Valve Replacement 6 <+> Time In 6 <*> Procedure Coronary Artery Bypass Graft, Vein Stevenson Endosaphenous, Transesophageal Echocardiogram, Mitral Valve Replacement 7 <+> Time In 7 <*> Procedure Coronary Artery Bypass Graft, Vein Stevenson Endosaphenous, Transesophageal Echocardiogram, Mitral Valve Replacement 09/04/18 17:44:04 Passenger Booking Clerk: ELISABETH Modifier: ELISABETH <+> 1 Procedure <+> [...] <+> 7 Role Performed <+> 7 Procedure [facility] IntraOp Case Times Entry 1 Patient In Room Time 09/04/18 16:52:00 Out Room Time 09/04/18 23:06:00 Anesthesia Start Time 09/04/18 16:52:00 Stop Time 09/04/18 23:06:00 Surgery / Procedure Times Start Time 09/04/18 17:35:00 Stop Time 09/04/18 22:58:00 Last Modified By: CECI THOMAS 09/04/18 23:06:34 [facility] IntraOp Case Times Audit 09/04/18 23:06:34 Passenger Booking Clerk: LOUKELSIE Modifier: [email or web address] <+> 1 Out Room Time <+> 1 Stop Time <+> 1 Stop Time 09/04/18 17:37:35 Passenger Booking Clerk: ELISABETH Modifier: ELISABETH <+> 1 Start Time [facility] IntraOp Cautery Entry 1 Entry 2 ESU Identification Cautery Type Monopolar ESU Monopolar ESU Cautery Type Comments ID Number [id number] ID Type Hospital Number Hospital Number Cautery [...] Pref Card Builder 09/04/18 17:47:32 09/04/18 17:47:32 [facility] IntraOp Communication Entry 1 Entry 2 [...] [facility] Pref Card Builder 09/04/18 20:16:18 [facility] IntraOp Communication Audit 09/04/18 22:43:37 Passenger Booking Clerk: ELISABETH Modifier: [email or web address] <+> 10 Communication By <+> 10 Communication To <+> 10 Comment 09/04/18 22:21:45 Passenger Booking Clerk: ELISABETH Modifier: LINWOODSJE <+> 7 Date and Time <+> 8 Date and Time 09/04/18 21:30:14 Passenger Booking Clerk: LINWOODSKELSIE Modifier: [email or web address] <+> 5 Date and Time <+> 6 Date and Time 09/04/18 20:16:18 Passenger Booking Clerk: LINWOODSKELSIE Modifier: LINWOODSJE <+> 9 Communication By <+> 9 Date and Time <+> 9 Communication To <+> 9 Comment 09/04/18 18:44:47 Passenger Booking Clerk: ELISABETH Modifier: LINWOODSKELSIE 2 <*> Comment FAMILY NOT IN WAITING ROOM <+> 3 Date and Time <+> 4 Date and Time 09/04/18 17:48:57 Passenger Booking Clerk: ELISABETH Modifier: LINWOODSKELSIE <+> 1 Communication By [...] <+> 8 Communication To <+> 8 Comment [facility] IntraOp Counts Verification Entry 1 Entry 2 Procedure Vein Stevenson Vein Stevenson Endosaphenous, Endosaphenous, Transesophageal Transesophageal Echocardiogram, CABG w [...] Builder Pref Card Builder Last Modified By: [facility] TERRY, JULIA 09/04/18 Pref Card Builder 22:27:41 09/04/18 17:55:50 [facility] IntraOp Counts Verification Audit 09/04/18 22:27:41 Passenger Booking Clerk: ELISABETH Modifier: ADELITA 2 <*> Procedure Vein Stevenson Endosaphenous, Transesophageal Echocardiogram, CABG w Mitral Valve 2 <+> Count Performed By (Scrub) 2 <+> Count Performed By (RN) 09/04/18 17:55:50 Passenger Booking Clerk: ELISABETH Modifier: ISAIIMESKELSIE 1 <*> Procedure Vein Stevenson Endosaphenous, Transesophageal Echocardiogram, Mitral Valve Replacement, CABG w Mitral Valve 2 <*> Procedure Vein Stevenson Endosaphenous, Transesophageal Echocardiogram, Mitral Valve Replacement, CABG w Mitral Valve 09/04/18 17:55:28 Passenger Booking Clerk: ELISABETH Modifier: ISAIIMESJE 1 <*> Procedure Coronary Artery Bypass Graft, Vein Stevenson Endosaphenous, Transesophageal Echocardiogram, Mitral Valve Replacement, CABG w Mitral Valve 2 <*> Procedure Coronary Artery Bypass Graft, Vein Stevenson Endosaphenous, Transesophageal Echocardiogram, Mitral Valve Replacement, CABG w Mitral Valve 09/04/18 17:52:41 Passenger Booking Clerk: ELISABETH Modifier: ISAIIMESJE 1 <*> Procedure Coronary Artery Bypass Graft, Vein Stevenson Endosaphenous, Transesophageal Echocardiogram, Mitral Valve Replacement 2 <*> Procedure Coronary Artery Bypass Graft, Vein Stevenson Endosaphenous, Transesophageal Echocardiogram, Mitral Valve Replacement [facility] IntraOp Counts Final Entry 1 Procedure Vein Stevenson Endosaphenous, Transesophageal Echocardiogram, CABG w Mitral Valve Final Count Info Count Type Sponge, Sharps, Miscellaneous Counts Verification Skin Closure/end of Sequence procedure Count Results Correct, surgeon notified Counts Performed By Count Performed By Ilsa Mcclelland ST (Scrub) Count Performed By CECI THOMAS (RN) Last Modified By: CECI THOMAS 09/04/18 22:43:57 [facility] IntraOp Counts Final Audit 09/04/18 22:43:57 Passenger Booking Clerk: ELISABETH Modifier: ADELITA 1 <*> Procedure Vein Stevenson Endosaphenous, Transesophageal Echocardiogram, CABG w Mitral Valve 1 <+> Count Performed By (Scrub) 1 <+> Count Performed By (RN) 09/04/18 17:55:51 Passenger Booking Clerk: ELISABETH Modifier: ELISABETH 1 <*> Procedure Vein Stevenson Endosaphenous, Transesophageal Echocardiogram, Mitral Valve Replacement, CABG w Mitral Valve 09/04/18 17:55:29 Passenger Booking Clerk: ELISABETH Modifier: ELISABETH 1 <*> Procedure Coronary Artery Bypass Graft, Vein Stevenson Endosaphenous, Transesophageal Echocardiogram, Mitral Valve Replacement, CABG w Mitral Valve 09/04/18 17:52:44 Passenger Booking Clerk: ELISABETH Modifier: ELISABETH 1 <*> Procedure Coronary Artery Bypass Graft, Vein Stevenson Endosaphenous, Transesophageal Echocardiogram, Mitral Valve Replacement [facility] IntraOp Departure from OR Entry 1 Integumentary Assessment Integumentary WDL Assessment WDL Transfer/Handoff Transfer to ICU - Cardiovascular Handoff Method Bedside/Face to face Post-op Transport Bed (including Via specialty) Patient Transport MARTY SOLOMON MD, Accompanied by Silver Bonilla, car checker, CARLO JARRETT PA Transfer/Handoff CTVU UPDATED THROUGHOUT Comments CASE Last Modified By: [facility] Pref Card Builder 09/04/18 17:49:40 [facility] IntraOp Drains and Tubes Entry 1 [...] Builder 09/04/18 17:49:45 09/04/18 17:49:45 09/04/18 20:54:53 [facility] IntraOp Drains and Tubes Audit 09/04/18 20:54:53 Passenger Booking Clerk: ELISABETH Modifier: ELISABETH <+> 3 Device Type <+> 3 Drain/Tube Activity <+> 3 Device Location <+> 3 Method of Drainage <+> 3 Tube Dressing Condition <+> 3 Size <+> 3 Chest Tubes Connectivity [facility] IntraOp Dressing and Packing Entry 1 Entry 2 Type Dressing Dressing Location Chest Operative leg Wound Dressing Item 4x4's Ben Wound Packing Type Tape Type Supplemental Applications Applied By Other Comments Soft cloth paper tape Last Modified By: [facility] Grimes, Jennifer, [facility] Pref Card Builder Pref Card Builder 09/04/18 17:49:50 09/04/18 17:49:50 [facility] IntraOp Fire Risk Assessment Entry 1 [...] Safety Precautions Followed Last Modified By: [facility] Pref Card Builder 09/04/18 17:50:01 [facility] IntraOp General Case Concrete Pipe Plant Supervisor 1 Case Information OR OR 11 [facility] Case Level 2 Room Verified Yes Wound Class I - Clean Specialty SN Cardio Thoracic Anesthesia Type General ASA Class 4 Diagnosis Preop Diagnosis CAD Postop Same As Preop Yes Postop Diagnosis CAD Last Modified By: [facility] Pref Card Builder 09/04/18 17:50:12 [facility] IntraOp Implant Log Entry 1 Entry 2 Type Implant (Synthetic) Implant (Synthetic) Implant Log Implant Type Marker Valve(s) Tissue Implant Type Implant [facility] [id number] Identification [id number] Description Implant Quantity 1 1 Implant Site [employer] Implant Identification Model Number Implant [id number] Identification Serial Number Implant [id number] Identification Lot Number Implant Medtronic:Card Surg:Tech Identification Quality Internship Name: Implant [id number] Identification Catalog Number Implant Size Implant Has an Yes Yes Expiration Date Implant Expiration 08/16/20 03/07/23 Date Wasted Radioactive Material Time Implanted Tissue Implant Continue for Tissue Implant Documentation Tissue Identification Number Graft Prep Per Quality Internship Instructions: Tissue Preparation Method: Reconstitution Solution: Reconstitution Solution Lot Number Reconstitution Solution Expiration Date: Thawing Solution Thawing Solution Lot Number Thawing Solution Expiration Date Preparation Materials, Other Preparation Materials, Other Lot Number Preparation Materials, Other Expiration Date Tissue Prepared/Processed By Quality Internship Paperwork Completed Implant Type Comment Last Modified By: [facility] Grimes, Jennifer, [facility] Pref Card Builder Pref Card Builder 09/04/18 17:59:36 09/04/18 20:18:21 [facility] IntraOp Implant Log Audit 09/04/18 20:18:21 Passenger Booking Clerk: ELISABETH Modifier: ELISABETH <+> 2 Implant Identification Description <+> 2 Implant Identification Serial Number <+> 2 Implant Identification Quality Internship Name: <+> 2 Implant Expiration Date <+> 2 Implant Site <+> 2 Implant Quantity <+> 2 Implant Identification Catalog Number <+> 2 Implant Type <+> 2 Implant Has an Expiration Date <+> 2 Type [facility] IntraOp Intraoperative Assessment Entry 1 Handoff [...] [facility] Pref Card Builder 09/04/18 17:50:19 [facility] IntraOp Intraoperative Equipment Entry 1 Equipment Intraop Monitoring Electrocardiogram Five lead placement (ECG) Electrode Placement Blood Pressure Non-Invasive BP Device Source Blood Pressure Arm, right upper Location Pulse Oximeter Hand, left Probe Site Antiembolic Devices Scopes Photo/Video Documentation Last Modified By: [facility] Pref Card Builder 09/04/18 17:50:23 [facility] IntraOp Medication Admin Entry 1 Entry 2 Entry 3 Medication/Irrigant Ancef 1Gm advantage papverine HCL 30mg/ml COMBO heparinized vial - [id number] 10ml - [id number] Lactated Ringers 1000units/100ml - [id number] Combo Med List Time Administered Route of [...] Builder 09/04/18 17:50:44 09/04/18 17:50:44 09/04/18 17:50:44 [facility] IntraOp Patient Positioning Entry 1 Procedure Vein Stevenson Endosaphenous, Transesophageal Echocardiogram, CABG w Mitral Valve [...] [facility] Pref Card Builder 09/04/18 17:55:50 [facility] IntraOp Patient Positioning Audit 09/04/18 17:55:50 Passenger Booking Clerk: ELISABETH Modifier: ELISABETH 1 <*> Procedure Vein Stevenson Endosaphenous, Transesophageal Echocardiogram, Mitral Valve Replacement, CABG w Mitral Valve 09/04/18 17:55:28 Passenger Booking Clerk: ELISABETH Modifier: LINWOODSKELSIE 1 <*> Procedure Coronary Artery Bypass Graft, Vein Stevenson Endosaphenous, Transesophageal Echocardiogram, Mitral Valve Replacement, CABG w Mitral Valve 09/04/18 17:52:42 Passenger Booking Clerk: ELISABETH Modifier: LINWOODSKELSIE 1 <*> Procedure Coronary Artery Bypass Graft, Vein Stevenson Endosaphenous, Transesophageal Echocardiogram, Mitral Valve Replacement [facility] IntraOp Sign In Entry 1 Patient, [...] [facility] Pref Card Builder 09/04/18 17:50:54 [facility] IntraOp Sign Out Entry 1 RN [...] Last Modified By: CECI THOMAS 09/04/18 22:44:07 [facility] IntraOp Sign Out Audit 09/04/18 22:44:07 Passenger Booking Clerk: ELISABETH Modifier: ADELITA <+> 1 RN Sign Out Signature Date/Time 09/04/18 22:25:13 Passenger Booking Clerk: ELISABETH Modifier: ELISABETH 1 <*> RN Sign Out Signature [facility] Pref Card Builder [facility] IntraOp Skin Prep Entry 1 Procedure Vein Stevenson Endosaphenous, Transesophageal Echocardiogram, CABG w Mitral Valve Prescribed Yes Pre-Surgical Prep Completed Prep Area Chin to toes, legs circumferentially Intraop Prep Integumentary WDL Assessment WDL Patients Normal WDL Integumentary Variance(s) Prep Agents Chloraprep Prep by [facility] Pref Card Builder Hair Removal Last Modified By: [facility] Pref Card Builder 09/04/18 17:55:50 [facility] IntraOp Skin Prep Audit 09/04/18 17:55:50 Passenger Booking Clerk: ELISABETH Modifier: LINWOODSKELSIE 1 <*> Procedure Vein Stevenson Endosaphenous, Transesophageal Echocardiogram, Mitral Valve Replacement, CABG w Mitral Valve 09/04/18 17:55:28 Passenger Booking Clerk: LINWOODSKELSIE Modifier: LINWOODSKELSIE 1 <*> Procedure Coronary Artery Bypass Graft, Vein Stevenson Endosaphenous, Transesophageal Echocardiogram, Mitral Valve Replacement, CABG w Mitral Valve 09/04/18 17:52:43 Passenger Booking Clerk: ISAIBRONWYNKingaKELSIE Modifier: LINWOODSKELSIE 1 <*> Procedure Coronary Artery Bypass Graft, Vein Stevenson Endosaphenous, Transesophageal Echocardiogram, Mitral Valve Replacement [facility] IntraOp Surgical Procedures Entry 1 Entry 2 Entry 3 Procedure Vein Stevenson Transesophageal CABG w Mitral Valve Endosaphenous Echocardiogram [...] 09/04/18 CECI THOMAS 09/04/18 23:06:37 23:06:37 23:06:37 [facility] IntraOp Surgical Procedures Audit 09/04/18 23:06:37 Passenger Booking Clerk: ELISABETH Modifier: ADELITA <+> 1 Stop <+> 2 Stop <+> 3 Stop 09/04/18 17:56:36 Passenger Booking Clerk: ISAIBRONWYNKingaKELSIE Modifier: LINWOODSKELSIE Entry 1 was deleted. [...] MITRAL VALVE REPAIR 2 <*> Procedure Vein Stevenson Endosaphenous 2 <*> Primary Procedure No 2 [...] - Clean <-> 4 Anesthesia Type General [facility] IntraOp Temp Regulation Devices Entry 1 [...] Out Entry 1 Procedure to be Vein Stevenson Performed Endosaphenous, Transesophageal Echocardiogram, CABG w Mitral [...] is present, Performed Electronically signed by Destiny [facility] Conversion Visually Impaired Teacher Cerner at 07/05/2022 8:42 PM CDT documented in this encounter Plan of Treatment Not on file documented as of this encounter Visit Diagnoses Not on filedocumented in this encounter Care Teams Tools And Parts Attendant Relationship Specialty Start Date End Date Martinez Canseco MD [address] [place] [address] PCP - General Family Medicine 10/05/22 documented as of this encounter
--- OUTSIDE RECORDS SUMMARY | 2024-11-12 12:34 | XMS_ITS | Encounter Summary ---
Author Organization [email or web address] ([place], [place], [place], [place]) Address [address] [place] [address] Care Team Providers Care Bakery Clerk Name Role Phone Martinez Canseco MD Primary Care Provider [phone] Encounter Details Date Type Department Care Team (Late st Contact Info) Description 09/07/2018 Transcribed Document [facility] Family Medicine [address] [place] [address] ProviderIvan MD [address], [place] [address] Social History Tobacco Use Types Packs/Day Years [...] : 09/05/2018 00:00 Atherosclerotic heart disease of [place] coronary artery without angina pectoris 09/05/2018 00:00 [...] PARK SOLIZ COTA - 09/12/2018 14:52 EDT [place] Goals, OT Grooming LTG Grid Goal #1 [...] Client stood with gaitbelt and RW at [place]. Walked to waiting area and sat. Client desat 78%. Required 4 mins to return to 90%. Client walked back to room. Sat EOB. Desat to 78%. Client [place] to supine. HOB elevated. O2 increase to [...] on filedocumented in this encounter Care Teams Bakery Clerk Relationship Specialty Start Date End Date Martinez Canseco MD [address] [place], [place] [id number] PCP - General Family Medicine 10/05/22 documented as of this encounter
--- OUTSIDE RECORDS SUMMARY | 2024-11-12 12:34 | XMS_ITS | Encounter Summary ---
Author Organization [employer] ([place], [place], [place], [place]) Address [address] [place] [address] Care Team Providers Care Electrical Design Engineer Name Role Phone Martinez Canseco MD Primary Care Provider [phone] Encounter Details Date Type Department Care Team (Late st Contact Info) Description 09/04/2018 Transcribed Document [facility] [place] Family Medicine [address] [place] [address] ProviderIvan MD [address] [place] [address] Social History Tobacco Use Types [...] Mitral valve repair using a 30 mm PriceAdvicetronic CG annuloplasty band. 3. Coronary artery bypass [...] General endotracheal anesthesia. SURGEON: Kyler Gaxiola MD HEALTH CARE LEGAL ASSISTANT: Brody Ojeda, physician mental health assistant. INDICATION FOR PROCEDURE: Augusto Hansen is a [...] systemically heparinized. Aorta was cannulated using a 22-Cameroonian aortic cannula. The right angle 24-Cameroonian venous cannula was inserted directly into the superior vena cava. A 34-Cameroonian right angle venous cannula was inserted into [...] sac was approximated using silk sutures. A 36-Cameroonian right-angled chest tube was placed in the left and another one in the right pleural spaces. A 36-Cameroonian straight chest tube was also placed in [...] Dr. Martinez Canseco Electronically signed by [facility] Conversion Club Steward Cerner at 07/05/2022 8:36 PM CDT documented in this encounter Plan of Treatment Not on file documented as of this encounter Visit Diagnoses Not on filedocumented in this encounter Care Teams Electrical Design Engineer Relationship Specialty Start Date End Date Martinez Canseco MD [address] [place] [address] PCP - General Family Medicine 10/05/22 documented as of this encounter
--- OUTSIDE RECORDS SUMMARY | 2024-11-12 12:34 | XMS_ITS | Encounter Summary ---
Author Organization [employer] ([place], [place], [place], [place]) Address [address] [place] [address] Care Team Providers Care Product Safety Engineer Name Role Phone Martinez Canseco MD Primary Care Provider [phone] Encounter Details Date Type Department Care Team (Late st Contact Info) Description 09/04/2018 Transcribed Document [facility] [place] [address] [place] [address] ProviderIvan MD [address] [place] [address] Social History Tobacco Use Types Packs/Day Years [...] On: 09/04/2018 10:15 EDT by KYLIE LARIOS, EDUARDO-Slip Filler Initial Assessment I Previously Documented Living Environment [...] Patient's Home Caregiver Medical Durable Power of Detective Bureau Chief Name : No Legal Guardian : No Is Guardianship Needed : No KYLIE LARIOS RN-Slip Filler - 09/04/2018 10:15 EDT Initial Assessment II Sensory and Motor Deficits : None Current Home Treatments and Equipment : None Does the Patient have a Floor to SNF Benefit? : Yes KYLIE LARIOS RN-Slip Filler - 09/04/2018 10:15 EDT Discharge Needs I Anticipated Discharge Date : 09/08/2018 EDT Anticipated Discharge To, CM : Home independently, Home with family care Current Home Treatment/Equipment : Current Home Treatment/Equipment No qualifying data available. Post Acute/Home Treatments : None KYLIE LARIOS RN-Slip Filler - 09/04/2018 10:15 EDT Discharge Needs II Professional Skilled Services : Professional Skilled Services No qualifying data available. Needs Assistance with Transportation : No Discharge Options Discussed with Patient : DME, Home Health KYLIE LARIOS RN-Slip Filler - 09/04/2018 10:15 EDT Narrative Note Narrative Note : For CABG 09/04. Will transfer to critical care unit then back to [facility]. he is open to cardiac rehab. Discussed potential need for DME(o2) and HH. Will reassess need after procedure. KYLIE LARIOS RN-Slip Filler - 09/04/2018 10:15 EDT documented in this encounter Plan of Treatment Not on file documented as of this encounter Visit Diagnoses Not on filedocumented in this encounter Care Teams Product Safety Engineer Relationship Specialty Start Date End Date Martinez Canseco MD [address] [place] [address] PCP - General Family Medicine 10/05/22 documented as of this encounter
--- OUTSIDE RECORDS SUMMARY | 2024-11-12 12:34 | XMS_ITS | Encounter Summary ---
Author Organization [employer] ([place], [place], [place], [place]) Address [address] [place] [address] Care Team Providers Care Home Lighting Adviser Name Role Phone Martinez Canseco MD Primary Care Provider [phone] Encounter Details Date Type Department Care Team (Late st Contact Info) Description 09/13/2018 Transcribed Document [facility] [place] Family Medicine [address] [place] [address] ProviderIvan MD [address], [place] [address] Social History Tobacco Use Types Packs/Day Years [...] 09/12, pt ambulating 125ft x2 with RWx Darion; pt disch to rehab setting; pt met [...] Date Met : 09/08/2018 EDT 09/08/2018 EDT LENOELA SOUZA, PT - 09/13/2018 15:31 EDT SOUZALEONELA, PT - 09/13/2018 15:31 EDT Ambulation STG Grid Goal #1 Device : Walker, front wheel Distance : 150' Assist : Assist, minimal Date to Meet : 09/14/2018 EDT Goal Status : Not met LEONELA SOUZA, PT - 09/13/2018 15:31 EDT [facility] Goals Mobility/Bed Mobility LTG PT Grid Goal #1 Goal #2 Activity : Supine to sit Sit to stand Assist : Supervision or set-up Supervision or set-up Equipment : Rail, bed Walker, front wheel Date to Meet : 09/21/2018 EDT 09/21/2018 EDT Goal Status : Not met Not met SOUZALEONELA, PT - 09/13/2018 15:31 EDT SOUZALEONELA, PT - 09/13/2018 15:31 EDT Ambulation LTG Grid Goal #1 Device : Walker, front wheel Distance : 375' Assist : Supervision or set-up Date to Meet : 09/21/2018 EDT Goal Status : Not met LEONELA SOUZA, PT - 09/13/2018 15:31 EDT Electronically signed by Ki Dixon Conversion Teacher Early Childhood Development Cerner at 07/05/2022 8:52 PM CDT documented in this encounter Plan of Treatment Not on file documented as of this encounter Visit Diagnoses Not on filedocumented in this encounter Care Teams Home Lighting Adviser Relationship Specialty Start Date End Date Martinez Canseco MD [address] [place] [address] PCP - General Family Medicine 10/05/22 documented as of this encounter
--- OUTSIDE RECORDS SUMMARY | 2024-11-12 12:34 | XMS_ITS | Encounter Summary ---
Author Organization [employer] ([place], [place], [place], [place]) Address [address] [place] [address] Care Team Providers Care Stewardesses Teacher Name Role Phone Martinez Canseco MD Primary Care Provider [phone] Encounter Details Date Type Department Care Team (Late st Contact Info) Description 09/11/2018 Transcribed Document [facility] [place] [address] [place] [address] ProviderIvan MD [address] [place] [address] Social History Tobacco Use Types [...] Ivan ProviderMD - 09/11/2018 8:29 AM CDT [facility] Endo IntraOp Summary Primary Physician: ARLETTE DE JESUS MD Finalized Date/Time: 09/11/18 09:05:45 Pt. Name: AUGUSTO PACHECO/Sex: 1950 Male Med Rec #: [id number] Physician: ESVIN BUTTS MD-CAT Financial #: [id number] Pt. Type: I Room/Bed: [facility]/1 Admit/Disch: 09/02/18 14:21:00 - Institution: [facility] Endo - Case Attendance Entry 1 Entry 2 Entry 3 Case Attendee ARLETTE DE JESUS MD RUBLE, AMY M., RN AARON VILLA MD Role Performed Surgeon/Proceduralist, Verification Engineer, First Anesthesiologist of First Record Time In [...] Crna Role Performed Scrub, First Scrub, Second MATE FOURTH/Nurse Physician Interventional Cardiologist Time In 09/11/18 08:15:00 09/11/18 08:15:00 09/11/18 08:15:00 Time Out 09/11/18 08:40:00 09/11/18 08:40:00 09/11/18 08:40:00 Procedure Bronchoscopy Flexible, Bronchoscopy Flexible, Bronchoscopy Flexible, Bronchial Washings Bronchial Washings Bronchial Washings Other Attendee [facility] Superficial Wound Closed By: Last Modified By: SUSHMA LOPEZ, SUSHMA HUBER, SUSHMA HUBER, EDUARDO 09/11/18 08:38:13 09/11/18 08:24:18 09/11/18 08:38:13 [facility] Endo - Case Attendance Audit 09/11/18 08:38:13 Train Operator: SPENCEAM Modifier: SPENCEAM 1 <+> Time Out [...] Procedure Bronchoscopy Flexible, Bronchial Washings 09/11/18 08:36:13 Train Operator: SPENCEAM Modifier: SPENCEAM 6 <+> Case Attendee 6 <*> Procedure Bronchoscopy Flexible, Bronchial Washings 09/11/18 08:33:38 Train Operator: SPENCEAM Modifier: SPENCEAM 1 <*> Procedure Bronchoscopy Flexible 2 <*> Procedure Bronchoscopy Flexible 3 <*> Procedure Bronchoscopy Flexible 4 <*> Procedure Bronchoscopy Flexible 5 <*> Procedure Bronchoscopy Flexible 6 <*> Procedure Bronchoscopy Flexible 09/11/18 08:25:38 Train Operator: SPENCEAM Modifier: SPENCEAM 1 <*> Procedure Bronchoscopy Flexible 2 <+> Time In 2 <*> Procedure Bronchoscopy Flexible 3 <+> Time In 3 <*> Procedure Bronchoscopy Flexible 4 <+> Time In 4 <*> Procedure Bronchoscopy Flexible 5 <+> Time In 5 <*> Procedure Bronchoscopy Flexible 6 <+> Time In 6 <*> Procedure Bronchoscopy Flexible 09/11/18 08:24:18 Train Operator: SPENCEAM Modifier: SPENCEAM 1 <+> Time In [...] <+> 6 Role Performed <+> 6 Procedure [facility] Endo - Case times Entry 1 Patient In Room Time 09/11/18 08:15:00 Out Room Time 09/11/18 08:44:00 Anesthesia Start Time 09/11/18 08:15:00 Stop Time 09/11/18 08:44:00 Surgery / Procedure Times Start Time 09/11/18 08:29:00 Stop Time 09/11/18 08:35:00 Last Modified By: SUSHMA LOPEZ RN 09/11/18 08:35:29 [facility] Endo - Case times Audit 09/11/18 09:05:42 Train Operator: SPENCEAM Modifier: SPENCEAM 1 <*> Out Room Time 09/11/18 08:40:00 1 <*> Stop Time 09/11/18 08:40:00 09/11/18 08:36:42 Train Operator: SPENCEAM Modifier: SPENCEAM <+> 1 Out Room Time <+> 1 Stop Time 09/11/18 08:35:29 Train Operator: SPENCEAM Modifier: SPENCEAM <+> 1 Start Time <+> 1 Stop Time [facility] Endo - Cultures and Spec Summary Entry 1 Cultrures and Specimens Specimen Ordered: Yes Specimens Types Culture(s), Pathology Specimen(s) Labeled Lab, Pathology and Sent to Last Modified By: SUSHMA LOPEZ RN 09/11/18 08:33:48 [facility] Endo - Delays Entry 1 Delay Reason Ancillary department delay Duration 15 Minute(s) Comment transported to Endoscopy Last Modified By: SUSHMA LOPEZ RN 09/11/18 08:33:17 [facility] Endo - Departure from OR Entry 1 Integumentary Assessment Integumentary WDL Assessment WDL Transfer/Handoff Transfer to PACU Phase I Handoff Reported to SUSHMA LOPEZ, RN Post-op Transport Stretcher/Gurney Via Patient Transport SUSHMA LOPEZ, RN Accompanied by Last Modified By: SUSHMA LOPEZ RN 09/11/18 08:24:25 [facility] Endo - Endoscopy Details Entry 1 Abdomen Procedure Soft, Non-distended, Assessment Non-Tender Procedure Abdomen 09/11/18 08:24:00 Assessment D/T Radio Frequency Ablation Last Modified By: SUSHMA LOPEZ RN 09/11/18 08:24:29 [facility] Endo - Fire Risk Assessment Entry 1 Fire Info Surgical Site or 1- Yes Incision Above the Xyphoid Open O2 Source 1- Yes (Mask or Cannula) Available Ignition 1- Yes (ESU, Laser, Light Source) Fire Risk 3 Assessment Score Fire Score Fire Risk Yes Assessment Complete Fire Risk SUSHMA LOPEZ, marketing operations intern Verified By Fire Risk 09/11/18 08:24:00 Assessment Verified Date/Time Fire Risk High Risk Protocol Yes Implemented Standard Fire Yes Safety Precautions Followed Last Modified By: SUSHMA LOPEZ RN 09/11/18 08:24:32 [facility] Endo - General Case Remote Recruiter 1 Case Information OR Endo 04 [facility] Case Level 1 Room Verified Yes Wound Class II - Clean-Contaminated Specialty SN Pulmonology Anesthesia Type General ASA Class 4 Diagnosis Preop Diagnosis right lung collapse Postop Same As Preop Yes Postop Diagnosis right lung collapse Last Modified By: SUSHMA LOPEZ RN 09/11/18 08:25:02 [facility] Endo - Intraoperative Assessment Entry 1 Valid History / Yes Physical in Chart Preoperative Yes Checklist Reviewed/Evaluated Patient is Latex No Sensitive Level of WDL Consciousness (WDL = Alert, Oriented to Person, Place, and Time) Present Upon ECG monitored Arrival to OR Last Modified By: SUSHMA LOPEZ RN 09/11/18 08:25:06 [facility] Endo - Intraoperative Equipment Entry 1 Equipment Intraop Monitoring Electrocardiogram Three lead placement (ECG) Electrode Placement Blood Pressure Arm, left upper Location Pulse Oximeter Hand, right Probe Site Antiembolic Devices Scopes Flexible Endoscopes Bronchoscope Used Scope Serial B8 Number/Identificatio n Number Photo/Video Documentation Photo Yes Video No Last Modified By: SUSHMA LOPEZ RN 09/11/18 08:25:19 [facility] Endo - Patient Positioning Entry 1 Procedure Bronchoscopy Flexible, Bronchial Washings Body Position Supine Left Arm Position Resting at side Right Arm Position Resting at side Left Leg Position Uncrossed, parallel Right Leg Position Uncrossed, parallel Feet Uncrossed Yes Pressure Points Yes Checked Positioned By SUSHMA LOPEZ RN Position Verified Positioning Yes Verified by Surgeon Last Modified By: SUSHMA LOPEZ RN 09/11/18 08:25:28 [facility] Endo - Patient Positioning Audit 09/11/18 08:33:39 Train Operator: SPENCEAM Modifier: SPENCEAM 1 <*> Procedure Bronchoscopy Flexible [facility] Endo - Sign In Entry 1 Patient, Site, Yes Procedure Identified Surgical Consent Yes Confirmed Surgical Site N/A Marked by person performing procedure Airway Hypothermia Risk No Warming Measures No Taken Last Modified By: SUSHMA LOPEZ RN 09/11/18 08:25:36 [facility] Endo - Sign Out Entry 1 RN [...] Modified By: SUSHMA LOPEZ RN 09/11/18 08:36:52 [facility] Endo - Surgical Procedures Entry 1 Entry [...] II - Clean-Contaminated Last Modified By: SUSHMA LOPZE RN RUBLE, AMY M., RN 09/11/18 08:25:29 09/11/18 08:33:35 [facility] Endo - Surgical Procedures Audit 09/11/18 08:36:57 Train Operator: SPENCEAM Modifier: SPENCEAM <+> 1 Start <+> 1 Stop <+> 2 Start <+> 2 Stop 09/11/18 08:33:35 Train Operator: SPENCEAM Modifier: SPENCEAM <+> 2 Procedure <+> 2 Primary Procedure <+> 2 Primary Surgeon <+> 2 Specialty <+> 2 Wound Class <+> 2 Anesthesia Type 09/11/18 08:26:29 Train Operator: SPENCEAM Modifier: SPENCEAM 1 <*> Procedure Bronchoscopy Flexible 09/11/18 08:25:51 Train Operator: SPENCEAM Modifier: SPENCEAM 1 <*> Procedure Bronchoscopy Flexible 1 <+> Specialty 1 <*> Anesthesia Type MAC [facility] Endo - Time Out Entry 1 Procedure [...] Modified By: SUSHMA LOPEZ RN 09/11/18 08:33:39 [facility] Endo - Time Out Audit 09/11/18 08:33:39 Train Operator: SPENCEAM Modifier: SPENCEAM 1 <*> Procedure to be Performed Bronchoscopy Flexible Case Comments <None> Finalized By: SUSHMA LOPEZ RN Document Signatures Signed By: SUSHMA LOPEZ RN 09/11/18 09:05 Electronically signed by Destiny [facility] [employer] Conversion Supply Chain Consultant Cerner at 07/05/2022 8:46 PM CDT documented in this encounter Plan of Treatment Not on file documented as of this encounter Visit Diagnoses Not on filedocumented in this encounter Care Teams Stewardesses Teacher Relationship Specialty Start Date End Date Martinez Canseco MD [address] [place] [address] PCP - General Family Medicine 10/05/22 documented as of this encounter
--- OUTSIDE RECORDS SUMMARY | 2024-11-12 12:34 | XMS_ITS | Encounter Summary ---
Author Organization [employer] ([place], [place], [place], [place]) Address [address] [place] [address] Care Team Providers Care Senior Developer Name Role Phone Martinez Canseco MD Primary Care Provider [phone] Encounter Details Date Type Department Care Team (Late st Contact Info) Description 09/05/2018 Transcribed Document [facility] [place] Family Medicine [address] [place] [address] ProviderIvan MD [address] [place] [address] Social History Tobacco Use Types [...] - 09/05/2018 10:52 EDT Electronically signed by [facility] Conversion Interactive Digital Media Specialist Cerner at 07/05/2022 8:41 PM CDT documented in this encounter Plan of Treatment Not on file documented as of this encounter Visit Diagnoses Not on filedocumented in this encounter Care Teams Senior Developer Relationship Specialty Start Date End Date Martinez Canseco MD [address] [place] [address] PCP - General Family Medicine 10/05/22 documented as of this encounter
--- OUTSIDE RECORDS SUMMARY | 2024-11-12 12:34 | XMS_ITS | Encounter Summary ---
Author Organization [employer] ([place], [place], [place], [place]) Address [address] [place] [address] Care Team Providers Care Psychiatric Social Worker Supervisor Name Role Phone Martinez Canseco MD Primary Care Provider [phone] Encounter Details Date Type Department Care Team (Late st Contact Info) Description 09/13/2018 Transcribed Document [facility] [place] [address] [place] [address] ProviderIvan MD [address] [place] [address] Social History Tobacco Use Types [...] doctor. This is important. Medicines ??? Take kxhf-stu-esdkwfc and prescription medicines only as told by [...] 08/21/2008 Document Revised: 01/31/2017 Document Reviewed: 01/31/2017 [employer] Interactive Patient Education ? 2019 [employer]. Nutrition Heart-Healthy Eating Plan Many factors influence [...] white, carolyn, wheat, raisin, rye, oatmeal, and Slovenian. Tortillas that are neither fried nor made with lard or trans fat. Low-fat rolls, including hotdog and hamburger buns and Serbian muffins. Biscuits. Muffins. Waffles. Pancakes. Light popcorn. [...] cooking, baking, salads, and as spreads. Other [place] powder. Coffee and tea. All seasonings and [...] cheese. Whole milk cheeses, including blue (shawnee), [place] Ben[place], Brie, Mark, Ghanaian, Havarti, Tanzanian, cheddar, Camembert, and [place]. Whole or 2% milk that is liquid, [...] that has suet, meat fat, or shortening. [place] butter, hydrogenated oils, palm oil, coconut oil, [...] 12/12/2008 Document Revised: 09/22/2016 Document Reviewed: 08/27/2014 Private [employer] Interactive Patient Education ? 2019 [employer]. Pulmonary Medicine Home Oxygen Use, Adult When [...] 05/25/2004 Document Revised: 11/01/2016 Document Reviewed: 09/26/2016 [employer] Interactive Patient Education ? 2019 [employer]. Incentive Spirometer An incentive spirometer is a [...] 07/16/2007 Document Revised: 11/27/2016 Document Reviewed: 10/12/2014 [employer] Interactive Patient Education ? 2018 [employer] Surgery Coronary Artery Bypass Grafting, Care After This sheet gives you information about how to care for yourself after your procedure. Your doctor may also give you more specific instructions. If you have problems or questions, contact your doctor. Follow these instructions at home: Medicines ??? Take rwsa-bfd-vspvuhz and prescription medicines only as told by [...] cannot use soap and water, use hand pilot plant supervisor. ? Change your dressing as told by [...] 03/10/2014 Document Revised: 04/17/2017 Document Reviewed: 04/17/2017 [employer] Interactive Patient Education ? 2019 [employer] documented in this encounter Plan of Treatment Not on file documented as of this encounter Visit Diagnoses Not on filedocumented in this encounter Care Teams Psychiatric Social Worker Supervisor Relationship Specialty Start Date End Date Martinez Canseco MD [address] [place] [address] PCP - General Family Medicine 10/05/22 documented as of this encounter
--- OUTSIDE RECORDS SUMMARY | 2024-11-12 12:34 | XMS_ITS | Encounter Summary ---
Author Organization [employer] ([place], [place], [place], [place]) Address [address] [place] [address] Care Team Providers Care Mixer Wet Pour Name Role Phone Martinez Canseco MD Primary Care Provider [phone] Encounter Details Date Type Department Care Team (Late st Contact Info) Description 09/04/2018 Transcribed Document [facility] [place] Family Medicine [address] [place] [address] ProviderIvan MD [address] [place] [address] Social History Tobacco Use Types [...] Ivan ProviderMD - 09/04/2018 1:00 PM CDT [facility] Main OR Preop Summary Primary Physician: ESVIN BUTTS MD-CAT Finalized Date/Time: 09/04/18 16:49:40 Pt. Name: AUGUSTO PACHECO/Sex: 1950 Male Med Rec #: [id number] Physician: ESVIN BUTTS MD-CAT Financial #: [id number] Pt. Type: I Room/Bed: /13 Admit/Disch: 09/02/18 14:21:00 - Institution: [facility] PreOp Case Times Entry 1 In Preop 09/04/18 12:25:00 Ready for Holding n/a Room Patient Ready for 09/04/18 14:18:00 Surgery Patient Out of Preop 09/04/18 16:50:00 Patient Out of n/a Holding Room Last Modified By: Trudy Alarcon RN 09/04/18 16:49:39 [facility] PreOp Case Times Audit 09/04/18 16:49:39 Sander Portable Machine: [email or web address] Modifier: RAMEZALR <+> 1 Patient Out of Preop Finalized By: Trudy Alarcon, RN Document Signatures Signed By: Trudy Alarcon RN 09/04/18 16:49 Electronically signed by Destiny [facility] Conversion Swimming Coach Cerner at 07/05/2022 8:40 PM CDT documented in this encounter Plan of Treatment Not on file documented as of this encounter Visit Diagnoses Not on filedocumented in this encounter Care Teams Mixer Wet Pour Relationship Specialty Start Date End Date Martinez Canseco MD [address] [place] [address] PCP - General Family Medicine 10/05/22 documented as of this encounter
--- OUTSIDE RECORDS SUMMARY | 2024-11-12 12:34 | XMS_ITS | Encounter Summary ---
Author Organization [employer] ([place], [place], [place], [place]) Address [address] [place] [address] Care Team Providers Care Production Support Developer Name Role Phone Martinez Canseco MD Primary Care Provider [phone] Encounter Details Date Type Department Care Team (Late st Contact Info) Description 09/04/2018 Transcribed Document [facility] [place] [address] [place] [address] ProviderIvan MD [address], [place] [address] Social History Tobacco Use Types Packs/Day Years [...] : 09/05/2018 00:00 Atherosclerotic heart disease of [place] coronary artery without angina pectoris 09/05/2018 00:00 [...] ROM : WFL Right LE Strength : [facility] LLE Active ROM : WF Left LE [...] LESLYE BRASHER, PT - 09/07/2018 13:20 EDT Biology Internship Goals Mobility/Bed Mobility LTG PT Grid Goal [...] Charges PT Eval Low Complexity : 1 LESLYE BRASHER, PT - 09/07/2018 13:20 EDT documented in this encounter Plan of Treatment Not on file documented as of this encounter Visit Diagnoses Not on filedocumented in this encounter Care Teams Production Support Developer Relationship Specialty Start Date End Date Martinez Canseco MD [address] [place] [address] PCP - General Family Medicine 10/05/22 documented as of this encounter
--- OUTSIDE RECORDS SUMMARY | 2024-11-12 12:34 | XMS_ITS | Encounter Summary ---
Author Organization [employer] ([place], [place], [place], [place]) Address [address] [place] [address] Care Team Providers Care Caltrans Equipment Operator Name Role Phone Martinez Canseco MD Primary Care Provider [phone] Encounter Details Date Type Department Care Team (Late st Contact Info) Description 09/11/2018 Transcribed Document [facility] Pulm & Critical Care Medicine [address] [place] [address] [address] [place] [address] [place] [address] [address] [place] [address] Social History Tobacco Use Types [...] procedures followed. Performed by: LEEROY GARVEY MD, casino floor runner. Informed consent: not signed by patient. Indication: abnormal chest x-ray, pneumonia, worsening condition, RLL> LLL collapse , before start pt was on 12 liter oxygen . Preparation: NPO, pre-medications given moderate sedation, pre-oxygenation 1 %. Technique: type of bronchoscope flexible, route endotracheal tube, monitoring during procedure (blood pressure monitoring, parts sales representative, continuous pulse oximetry). Findings: procedure done with [...] on filedocumented in this encounter Care Teams Caltrans Equipment Operator Relationship Specialty Start Date End Date Martinez Canseco MD [address] [place] [address] PCP - General Family Medicine 10/05/22 documented as of this encounter
--- OUTSIDE RECORDS SUMMARY | 2024-11-12 12:34 | XMS_ITS | Encounter Summary ---
Author Organization [employer] ([place], [place], [place], [place]) Address [address] [place] [address] Care Team Providers Care Interventional Radiology Technologist Name Role Phone Martinez Canseco MD Primary Care Provider [phone] Encounter Details Date Type Department Care Team (Late st Contact Info) Description 09/05/2018 Transcribed Document [facility] [place] Medicine [address] [place] [address] ProviderIvan MD [address] [place] [address] Social History Tobacco Use Types Packs/Day Years [...] on filedocumented in this encounter Care Teams Interventional Radiology Technologist Relationship Specialty Start Date End Date Martinez Canseco MD [address] [place] [address] PCP - General Family Medicine 10/05/22 documented as of this encounter
--- OUTSIDE RECORDS SUMMARY | 2024-11-12 12:34 | XMS_ITS | Encounter Summary ---
Author Organization [employer] ([place], [place], [place], [place]) Address [address] [address] Care Team Providers Care Honing Machine Operator Name Role Phone Martinez Canseco MD Primary Care Provider [phone] Encounter Details Date Type Department Care Team (Late st Contact Info) Description 09/04/2018 Transcribed Document [facility] [place] Family Medicine [address] [place] [address] ProviderIvan MD [address] [place] [address] Social History Tobacco Use Types [...] Comment : Referral for CR sent to [facility] per shoe caser. Jerrica Whitehead Rn-Clinical Coordinator I - 09/09/2018 8:16 EDT documented in this encounter Plan of Treatment Not on file documented as of this encounter Visit Diagnoses Not on filedocumented in this encounter Care Teams Honing Machine Operator Relationship Specialty Start Date End Date Martinez Canseco MD [address] [place] [address] PCP - General Family Medicine 10/05/22 documented as of this encounter
--- OUTSIDE RECORDS SUMMARY | 2024-11-12 12:34 | XMS_ITS | Encounter Summary ---
Author Organization [employer] ([place], [place], [place], [place]) Address [address] [place] [address] Care Team Providers Care Nursing Home Administrator Name Role Phone Martinez Canseco MD Primary Care Provider [phone] Encounter Details Date Type Department Care Team (Late st Contact Info) Description 09/04/2018 Transcribed Document [facility] [place] Medicine [address] [place] [address] ProviderIvan MD [address] [place], [place] [address] Social History Tobacco Use Types Packs/Day Years [...] version of the form. Electronically signed by Destiny [facility] Conversion Director Of Web Marketing Cerner at 07/05/2022 8:51 PM CDT documented in this encounter Plan of Treatment Not on file documented as of this encounter Visit Diagnoses Not on filedocumented in this encounter Care Teams Nursing Home Administrator Relationship Specialty Start Date End Date Martinez Canseco MD [address] [place] [address] PCP - General Family Medicine 10/05/22 documented as of this encounter
--- OUTSIDE RECORDS SUMMARY | 2024-11-12 12:34 | XMS_ITS | Encounter Summary ---
Author Organization [employer] ([place], [place], [place], [place]) Address [address] [place] [address] Care Team Providers Care Hearing Impaired Itinerant Teacher Name Role Phone Martinez Canseco MD Primary Care Provider [phone] Encounter Details Date Type Department Care Team (Late st Contact Info) Description 09/13/2018 Transcribed Document [facility] [place] [address] [place] [address] ProviderIvan MD [address] [place] [address] Social History Tobacco Use Types [...] 09/13/2018 12:32 PM CDT Clarissa Soto M.D. [address] [place] [address] [place] [address] Re: AUGUSTO PACHECO Date of Visit: 09/02/2018 [...] contents is strictly prohibited. Sincerely, ANGELINE JAY [address] [place] [address] The following document(s) were included in the letter: September 13, 2018 11:55:00 EDT - (09/13/2018) DISCHARGE SUMMARY documented in this encounter Plan of Treatment Not on file documented as of this encounter Visit Diagnoses Not on filedocumented in this encounter Care Teams Hearing Impaired Itinerant Teacher Relationship Specialty Start Date End Date Martinez Canseco MD [address] [place] [address] PCP - General Family Medicine 10/05/22 documented as of this encounter
--- OUTSIDE RECORDS SUMMARY | 2024-11-12 12:34 | XMS_ITS | Clinical Summary ---
Author Organization [facility] Address [address] [place] [address] Care Team Providers Care Off Track Betting Manager Name Role Phone Ernesto Daniel MD Primary Care Provider [phone] Allergies No known active allergies Medications aspirin [...] hyperlipidemia 06/20/2022 Coronary artery disease invo lving [place] coronary artery of [place] heart without angina pectoris 06/20/2022 Obesity (BMI [...] drink first t rola in the morning (EYE-CAR SALES CONSULTANT) to steady your nerves or to get [...] UKY-Zoster Vaccines (2 of 2) 06/02/2022 04/07/2022 [id number] Vaccine ( season) 2023 04/07/2022, 07/20/2021, 01/21/2021, [...] Patient has decision-making capacity? Yes Care Teams Off Track Betting Manager Relationship Specialty Start Date End Date Ernesto Daniel MD [address] [place] [address] PCP - General 06/20/22
--- OUTSIDE RECORDS SUMMARY | 2024-11-12 12:34 | XMS_ITS | Encounter Summary ---
Author Organization [employer] ([place], [place], [place], [place]) Address [address] [place] [address] Care Team Providers Care Events Intern Name Role Phone Martinez Canseco MD Primary Care Provider [phone] Encounter Details Date Type Department Care Team (Late st Contact Info) Description 09/04/2018 Transcribed Document [facility] [place] Family Medicine [address] [place] [address] ProviderIvan MD [address] [place] [address] Social History Tobacco Use Types [...] On: 09/04/2018 14:11 EDT by Trudy Alarcon logistics program manager Documentation Procedure to be Performed : [...] Anesthesiologist Procedure Case Attendee Role 2 : logistics program manager Case Attendee 2 : RISHI PEREYRA RN Procedure Case Attendee Role 3 : logistics program manager Case Attendee 3 : Trudy Alarcon [...] on filedocumented in this encounter Care Teams Events Intern Relationship Specialty Start Date End Date Martinez Canseco MD [address] [place] [address] PCP - General Family Medicine 10/05/22 documented as of this encounter
--- OUTSIDE RECORDS SUMMARY | 2024-11-12 12:34 | XMS_ITS | Encounter Summary ---
Author Organization [employer] ([place], [place], [place], [place]) Address [address] [place] [address] Care Team Providers Care Arc Furnace Operator Name Role Phone Martinez Canseco MD Primary Care Provider [phone] Encounter Details Date Type Department Care Team (Late st Contact Info) Description 09/05/2018 Transcribed Document [facility] [place] Family Medicine [address] [place] [address] ProviderIvan MD [address] [place] [address] Social History Tobacco Use Types [...] Performed On: 09/05/2018 17:00 EDT by DESIREE Figueroa RN Chart Check Powerplans Initiated/Discontinued as Appropriate : Yes All Active Orders Reviewed : Yes DESIREE Figueroa, RN - 09/05/2018 19:55 EDT Electronically signed by Destiny [facility] Conversion Assistant To The President [employer]ner at 07/05/2022 8:52 PM CDT documented in this encounter Plan of Treatment Not on file documented as of this encounter Visit Diagnoses Not on filedocumented in this encounter Care Teams Arc Furnace Operator Relationship Specialty Start Date End Date Martinez Canseco MD [address] [place] [address] PCP - General Family Medicine 10/05/22 documented as of this encounter
--- OUTSIDE RECORDS SUMMARY | 2024-11-12 12:34 | XMS_ITS | Encounter Summary ---
Author Organization [email or web address] ([place], [place], [place], [place]) Address [address] [place] [address] Care Team Providers Care Jacquard Fixer Name Role Phone Martinez Canseco MD Primary Care Provider [phone] Encounter Details Date Type Department Care Team (Late st Contact Info) Description 09/05/2018 Transcribed Document [facility] Pulm & Critical Care Medicine [address] [place] [address] [address] [place] [address] [place] [address] [address] [place] [address] Social History Tobacco Use Types [...] to have MVCAD. He was transferred to [facility] for CTS evaluation. 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 Radiology Results (Last 48 hours) [id number] -- 09/02/2018 14:21 CR Chest 1 Vw [...] dictated by Dr. Joey Miller.Transcribed by Norberto Roca, KEIRA have personally viewed, interpreted and dictated [...] on filedocumented in this encounter Care Teams Jacquard Fixer Relationship Specialty Start Date End Date Martinez Canseco MD [address] [place] [address] PCP - General Family Medicine 10/05/22 documented as of this encounter
--- OUTSIDE RECORDS SUMMARY | 2024-11-12 12:34 | XMS_ITS | Encounter Summary ---
Author Organization [employer] ([place], [place], [place], [place]) Address [address] [place] [address] Care Team Providers Care Oncology Physician Assistant Name Role Phone Martinez Canseco MD Primary Care Provider [phone] Encounter Details Date Type Department Care Team (Late st Contact Info) Description 09/13/2018 Transcribed Document [facility] [place] Family Medicine [address] [place] [address] ProviderIvan MD [address] [place], [place] [address] Social History Tobacco Use Types Packs/Day Years Used Date Smoking Tobacco: Never Assessed Sex and Gender Information Value Date Recorded Sex Assigned at Male 09/13/2021 8:33 PM CDT Legal Sex Male 8:33 PM CDT Gender Identity Male 09/13/2021 8:33 PM CDT Sexual Orientation Not on file documented as of this encounter Miscellaneous Notes * [employer] Conversion Note - Ivan ProviderMD - 09/13/2018 12:22 PM CDT Stroke/Warfarin [...] on filedocumented in this encounter Care Teams Oncology Physician Assistant Relationship Specialty Start Date End Date Martinez Canseco MD [address] [place] [address] PCP - General Family Medicine 10/05/22 documented as of this encounter
--- OUTSIDE RECORDS SUMMARY | 2024-11-12 12:35 | XMS_ITS | Encounter Summary ---
Author Organization [employer] ([place], [place], [place], [place]) Address [address] [place] [address] Care Team Providers Care Senior Visual Designer Name Role Phone Martinez Canseco MD Primary Care Provider [phone] Encounter Details Date Type Department Care Team (Late st Contact Info) Description 09/13/2018 Transcribed Document [facility] [place] [address] [place] [address] ProviderIvan MD [address] [place], [place] [address] Social History Tobacco Use Types Packs/Day Years [...] filedocumented in this encounter Care Teams Senior Visual Designer Relationship Specialty Start Date End Date Martinez Canseco MD [address] [place] [address] PCP - General Family Medicine 10/05/22 documented as of this encounter
--- OUTSIDE RECORDS SUMMARY | 2024-11-12 12:35 | XMS_ITS | Encounter Summary ---
Author Organization [employer] ([place], [place], [place], [place]) Address [address] [place] [address] Care Team Providers Care Bartender Name Role Phone Martinez Canseco MD Primary Care Provider [phone] Encounter Details Date Type Department Care Team (Late st Contact Info) Description 09/06/2018 Transcribed Document [facility] [place] Family Medicine [address] [place] [address] ProviderIvan MD [address] [place], [place] [address] Social History Tobacco Use Types Packs/Day Years [...] : 09/05/2018 00:00 Atherosclerotic heart disease of [place] coronary artery without angina pectoris 09/05/2018 00:00 [...] Stand to Sit : Rehab Moderate assistance OLIVER WOO OTR/Goran - 09/07/2018 12:21 EDT Cognition [...] OLIVER WOO OTR/Goran - 09/07/2018 12:21 EDT Screener Operator Goals, OT Grooming LTG Grid Goal #1 [...] 09/21/2018 EDT Goal Status : Initial goal AMNA ESTHER BOYD/Goran - 09/07/2018 12:21 EDT Treatment Note Subjective [...] admission Plan for Treatment : See goals OLIVER WOO OTR/Goran - 09/07/2018 12:21 EDT Pain Assessment Pain Score Pre-Intervention : 0 OLIVER WOO OTR/Goran - 09/07/2018 12:21 EDT Image 1 - Images currently included in the form version of this document have not been included in the text rendition version of the form. [place] OT Charges OT Eval Moderate Complexity : 1 OLIVER WOO OTR/Goran - 09/07/2018 12:21 EDT documented in this encounter Plan of Treatment Not on file documented as of this encounter Visit Diagnoses Not on filedocumented in this encounter Care Teams Bartender Relationship Specialty Start Date End Date Martinez Canseco MD [address] [place] [address] PCP - General Family Medicine 10/05/22 documented as of this encounter
--- OUTSIDE RECORDS SUMMARY | 2024-11-12 12:35 | XMS_ITS | Encounter Summary ---
Author Organization [employer] ([place], [place], [place], [place]) Address [address] [place] [address] Care Team Providers Care Keymodule Assembly Machine Tender Name Role Phone Martinez Canseco MD Primary Care Provider [phone] Encounter Details Date Type Department Care Team (Late st Contact Info) Description 09/07/2018 Transcribed Document [facility] [place] [address] [place] [address] ProviderIvan MD [address] [place], [place] [address] Social History Tobacco Use Types Packs/Day Years [...] Ivan ProviderMD - 09/07/2018 2:00 AM CDT Waste Disposal Leakage Tester Details Entered On: 09/07/2018 4:46 EDT Performed [...] 09/07/2018 4:46 EDT Electronically signed by Destiny [facility] Conversion Electrical Electronics Engineers Cerner at 07/05/2022 8:32 PM CDT documented in this encounter Plan of Treatment Not on file documented as of this encounter Visit Diagnoses Not on filedocumented in this encounter Care Teams Keymodule Assembly Machine Tender Relationship Specialty Start Date End Date Martinez Canseco MD [address] [place] [address] PCP - General Family Medicine 10/05/22 documented as of this encounter
--- OUTSIDE RECORDS SUMMARY | 2024-11-12 12:35 | XMS_ITS | Encounter Summary ---
Author Organization [employer] ([place], [place], [place], [place]) Address [address] [place] [address] Care Team Providers Care Assisted Living Assistant Name Role Phone Martinez Canseco MD Primary Care Provider Encounter Details Date Type Department Care Team (Late st Contact Info) Description 09/13/[address] [facility] [place] Family Medicine [address] [place] [address] ProviderIvan MD [address] [place], [place] [address] Social History Tobacco Use Types Packs/Day Years [...] On: 09/13/2018 9:47 EDT by BIRGIT IQBAL Tag Clerk Care Management Progress Note Discharge Arrangements : Patient Post-Acute Information Patient Name: AUGUSTO PACHECO Gender: Male : 54 Age: 67 Years [place] Referral(s): Service: Organization: Business Address: Phone Number[facility] [address], [place], [address] Discharge Options Discussed with Patient [...] to SNF Benefit? : Yes BIRGIT IQBAL, Tag Clerk - 09/13/2018 9:47 EDT documented in this encounter Plan of Treatment Not on file documented as of this encounter Visit Diagnoses Not on filedocumented in this encounter Care Teams Assisted Living Assistant Relationship Specialty Start Date End Date Martinez Canseco MD [address] [place] [address] PCP - General Family Medicine 10/05/22 documented as of this encounter
--- OUTSIDE RECORDS SUMMARY | 2024-11-12 12:35 | XMS_ITS | Encounter Summary ---
Author Organization [employer] ([place], [place], [place], [place]) Address [address] [place] [address] Care Team Providers Care Bead Stringer Name Role Phone Martinez Gutierrez MD Primary Care Provider [phone] Encounter Details Date Type Department Care Team (Late st Contact Info) Description 09/13/[address] [facility] [place] Family Medicine [address] [place] [address] ProviderIvan MD [address] [place] [address] Social History Tobacco Use Types [...] Nino MD - 09/13/2018 12:33 PM CDT [facility] [place] [address] TARAIZABELLA MENA :1950 Visit Time:09/02/2018 Your Visit Summary Your Care Team Admitting Physician - ESVIN BUTTS MD-CAT Attending Physician - ESVIN BUTTS MD-CAT Primary Care Physician - YUMI, UNKNOWN Referring Physician - YUMI, UNKNOWN Your Diagnosis Alcohol use 3 beers daily Atherosclerotic heart disease of [place] coronary artery without angina pectoris, Atherosclerotic heart disease of [place] coronary artery without angina pectoris, CAD (coronary artery disease), [place] coronary artery, CAD (coronary artery disease), [place] coronary artery Diverticulitis with history of colostomy and recent colostomy reversal HLD (hyperlipidemia) HTN (hypertension) Nicotine dependence with withdrawal Recent Pneumonia Severe COPD and emphysematous lungs Severe mitral regurgitation, Severe mitral regurgitation Unstable angina Discharge Vitals Temperature 36.3 ??C Heart Rate (Monitored) 109 Respiratory Rate 18 Blood Pressure 94/62 What to do next Instructions From Your Care Team Rehabilitation: [facility] Nurse can Call report to [phone] Discharge Summary: fax to [phone] Transportation: Brother will transport [facility] to deliver portable O2 tank for transport. Discharge Activity: no pushing or pulling, Discharge Activity: No heavy lifting over 10 lbs Diet: Discharge Diet: Heart healthy diet Showering/Bathing Instructions: May shower Driving Restriction: Do Not Drive for 2 months Follow-Up Appointments Follow Up with KEYUR TRUJILLO When 09/30/2018 02:20 AM EDT Comments Appointment has been made Where: [address] [place] [address]- [phone] Follow Up with ESVIN BUTTS When 09/24/2018 01:15 AM EDT Comments Appointment has been made Where: [address] [place] [address]- Business (1) Follow Up with MARTINEZ GUTIERREZ (KRIS) Viri When Within 1 week Comments after discharge from Rehab Where: [address] [place] [address]- , Follow Up with [facility] Cardiac Rehab When Within 6 weeks Comments Office to call with appoint/instructions Where: [phone] Medications What How Much When Instructions Next [...] use an oxygen concentrator: ? Tell your [employer]. Make sure you are given priority service [...] 05/25/2004 Document Revised: 11/01/2016 Document Reviewed: 09/26/2016 OneTrueFan Interactive Patient Education ?? 2019 Breath of Life. Incentive Spirometer An incentive spirometer is a [...] 07/16/2007 Document Revised: 11/27/2016 Document Reviewed: 10/12/2014 OneTrueFan Interactive Patient Education ?? 2018 Breath of Life. Hypertension Hypertension is another name for high [...] doctor. This is important. Medicines ??? Take ghbr-ref-jxjwzbi and prescription medicines only as told by [...] 08/21/2008 Document Revised: 01/31/2017 Document Reviewed: 01/31/2017 OneTrueFan Interactive Patient Education ?? 2019 Breath of Life. Heart-Healthy Eating Plan Many factors influence your [...] foods can I eat? Grains Breads, including Gabonese, white, carolyn, wheat, raisin, rye, oatmeal, and Romansh. Tortillas that are neither fried nor made with lard or trans fat. Low-fat rolls, including hotdog and hamburger buns and Romansh muffins. Biscuits. Muffins. Waffles. Pancakes. Light popcorn. [...] cooking, baking, salads, and as spreads. Other [place] powder. Coffee and tea. All seasonings and [...] cheese. Whole milk cheeses, including blue (shawnee), [place] Benito, Brie, Mark, Wallisian, Havarti, Somali, cheddar, Camembert, and Taft. Whole or 2% milk that is liquid, [...] that has suet, meat fat, or shortening. [place] butter, hydrogenated oils, palm oil, coconut oil, [...] 12/12/2008 Document Revised: 09/22/2016 Document Reviewed: 08/27/2014 OneTrueFan Interactive Patient Education ?? 2019 Breath of Life. Coronary Artery Bypass Grafting, Care After This sheet gives you information about how to care for yourself after your procedure. Your doctor may also give you more specific instructions. If you have problems or questions, contact your doctor. Follow these instructions at home: Medicines ??? Take qnkp-qpx-ygrqtse and prescription medicines only as told by [...] cannot use soap and water, use hand rn admit. ? Change your dressing as told by [...] 03/10/2014 Document Revised: 04/17/2017 Document Reviewed: 04/17/2017 OneTrueFan Interactive Patient Education ?? 2019 OneTrueFan Inc. acetaminophen and oxycodone (a SEET a [...] may report side effects to FDA at 3-096-VYJ-7836. What other drugs will affect acetaminophen and [...] affect acetaminophen and oxycodone, including prescription and wuyx-sgv-etsczzq medicines, vitamins, and herbal products. Not all [...] to ensure that the information provided by [employer]. ('Multum') is accurate, up-to-date, and complete, but no guarantee is made to that effect. Drug information contained herein may be time sensitive. [employer] ([employer]) information has been compiled for use by healthcare practitioners and consumers in the [place] and therefore [employer] does not warrant that uses outside of the [place] are appropriate, unless specifically indicated otherwise. Multum's drug information does not endorse drugs, diagnose patients or recommend therapy. AppTank drug information is an informational resource designed [...] effective or appropriate for any given patient. [facility] does not assume any responsibility for any aspect of healthcare administered with the aid of information [facility] provides. The information contained herein is not intended to cover all possible uses, directions, precautions, warnings, drug interactions, allergic reactions, or adverse effects. If you have questions about the drugs you are taking, check with your doctor, nurse or pharmacist. Copyright 0583-8892 [employer]. Version: 18.02. Revision Date: 02/13/2018.clopidogrel (kloe PID [...] may report side effects to FDA at 5-382-IEA-8593. What other drugs will affect clopidogrel? Certain other medicines may increase your risk of bleeding, including aspirin. Avoid taking aspirin unless your doctor tells you to. Tell your doctor about all your other medicines, especially: ? any other medicines to treat or prevent blood clots; ?? a stomach acid lining strap closer such as omeprazole, Nexium, or Prilosec; ?? an antidepressant; ?? an opioid medication; ?? a blood thinner--warfarin, Coumadin, Jantoven; or ?? NSAIDs (nonsteroidal anti-inflammatory drugs)--ibuprofen (Advil, Motrin), naproxen (Aleve), celecoxib, diclofenac, indomethacin, meloxicam, and others. This list is not complete. Other drugs may affect clopidogrel, including prescription and zfbh-fou-jwczqij medicines, vitamins, and herbal products. Not all [...] to ensure that the information provided by [employer]. ('Multum') is accurate, up-to-date, and complete, but no guarantee is made to that effect. Drug information contained herein may be time sensitive. Multum information has been compiled for use by healthcare practitioners and consumers in the [place] and therefore [employer] ([employer]) does not warrant that uses outside of the [place] are appropriate, unless specifically indicated otherwise. [employer] drug information does not endorse drugs, diagnose patients or recommend therapy. [employer] drug information is an informational resource designed [...] effective or appropriate for any given patient. [facility] does not assume any responsibility for any aspect of healthcare administered with the aid of information [facility] provides. The information contained herein is not intended to cover all possible uses, directions, precautions, warnings, drug interactions, allergic reactions, or adverse effects. If you have questions about the drugs you are taking, check with your doctor, nurse or pharmacist. Copyright 8616-3155 [employer]. Version: 15.01. Revision Date: 01/07/2018. Emergency Awareness [...] Assistance with quitting is available by contacting 4-599-KMRP-NOW. This is a free resource providing counseling, [...] range between ( 0.0 and 7.0 ) [place] #: 0.72 K/uL -- Normal range between ( 0.16 and 1.00 ) Eos #: 0.02 x10(3)/uL -- Normal range between ( 0.00 and 0.80 ) [place] %: 6.9 % -- Normal range between [...] RBC Morphology: Normal ANC #: 6 K/uL [place] Percent Man: 8 % -- Normal range [...] 18:16:19 MRSA Surveillance: See Result Blood Bank Electronically signed by [facility] Conversion School Librarian Cerner at 07/05/2022 8:33 PM CDT documented in this encounter Plan of Treatment Not on file documented as of this encounter Visit Diagnoses Not on filedocumented in this encounter Care Teams Bead Stringer Relationship Specialty Start Date End Date Martinez Gutierrez MD [address] [place] [address] PCP - General Family Medicine 10/05/22 documented as of this encounter
--- OUTSIDE RECORDS SUMMARY | 2024-11-12 12:35 | XMS_ITS | Encounter Summary ---
Author Organization [employer] ([place], [place], [place], [place]) Address [address] [place] [address] Care Team Providers Care Director Oracle Retail Name Role Phone Martinez Gutierrez MD Primary Care Provider [phone] Encounter Details Date Type Department Care Team (Late st Contact Info) Description 09/13/2018 Transcribed Document [facility] [place] Medicine [address] [place] [address] ProviderIvan MD [address] [place] [address] Social History Tobacco Use Types [...] Nino MD - 09/13/2018 12:27 PM CDT [facility] [place] [address] TARAIZABELLA MENA :1950 Visit Time:09/02/2018 Your Visit Summary Your Care Team Admitting Physician - ESVIN BUTTS MD-CAT Attending Physician - ESVIN BUTTS MD-CAT Primary Care Physician - YUMI, UNKNOWN Referring Physician - YUMI, UNKNOWN Your Diagnosis Alcohol use 3 beers daily Atherosclerotic heart disease of [place] coronary artery without angina pectoris, Atherosclerotic heart disease of [place] coronary artery without angina pectoris, CAD (coronary artery disease), [place] coronary artery, CAD (coronary artery disease), [place] coronary artery Diverticulitis with history of colostomy and recent colostomy reversal HLD (hyperlipidemia) HTN (hypertension) Nicotine dependence with withdrawal Recent Pneumonia Severe COPD and emphysematous lungs Severe mitral regurgitation, Severe mitral regurgitation Unstable angina Discharge Vitals Temperature 36.3 ??C Heart Rate (Monitored) 109 Respiratory Rate 18 Blood Pressure 94/62 What to do next Instructions From Your Care Team Rehabilitation: [facility] Nurse can Call report to [phone] Discharge Summary: fax to [phone] Transportation: Brother will transport [facility] to deliver portable O2 tank for transport. Discharge Activity: no pushing or pulling, Discharge Activity: No heavy lifting over 10 lbs Diet: Discharge Diet: Heart healthy diet Showering/Bathing Instructions: May shower Driving Restriction: Do Not Drive for 2 months Follow-Up Appointments Follow Up with KEYUR TRUJILLO When 09/30/2018 02:20 AM EDT Comments Appointment has been made Where: [address] [place] [address]- [phone] Follow Up with ESVIN BUTTS When 09/24/2018 01:15 AM EDT Comments Appointment has been made Where: [address] [place] [address]- Business (1) Follow Up with MARTINEZ GUTIERREZ (KRIS) Viri When Within 1 week Comments after discharge from Rehab Where: [address] [place] [address]- , Follow Up with [facility] Cardiac Rehab When Within 6 weeks Comments Office to call with appoint/instructions Where: [phone] Medications What How Much When Instructions Next [...] use an oxygen concentrator: ? Tell your [employer]. Make sure you are given priority service [...] 05/25/2004 Document Revised: 11/01/2016 Document Reviewed: 09/26/2016 LUMO Bodytech Interactive Patient Education ?? 2019 OrthAlign. Incentive Spirometer An incentive spirometer is a [...] 07/16/2007 Document Revised: 11/27/2016 Document Reviewed: 10/12/2014 LUMO [employer] Interactive Patient Education ?? 2018 OrthAlign. Hypertension Hypertension is another name for high [...] doctor. This is important. Medicines ??? Take lviv-ktb-ehimigb and prescription medicines only as told by [...] 08/21/2008 Document Revised: 01/31/2017 Document Reviewed: 01/31/2017 LUMO Bodytech Interactive Patient Education ?? 2019 OrthAlign. Heart-Healthy Eating Plan Many factors influence your [...] foods can I eat? Grains Breads, including South Sudanese, white, carolyn, wheat, raisin, rye, oatmeal, and Urdu. Tortillas that are neither fried nor made with lard or trans fat. Low-fat rolls, including hotdog and hamburger buns and Turkmen muffins. Biscuits. Muffins. Waffles. Pancakes. Light popcorn. [...] cooking, baking, salads, and as spreads. Other [place] powder. Coffee and tea. All seasonings and [...] cheese. Whole milk cheeses, including blue (shawnee), [place] Benito, Brie, Mark, Dutch, Havarti, Indonesian, cheddar, Camembert, and [place]. Whole or 2% milk that is liquid, [...] that has suet, meat fat, or shortening. [place] butter, hydrogenated oils, palm oil, coconut oil, [...] 12/12/2008 Document Revised: 09/22/2016 Document Reviewed: 08/27/2014 LUMO Bodytech Interactive Patient Education ?? 2019 OrthAlign. Coronary Artery Bypass Grafting, Care After This sheet gives you information about how to care for yourself after your procedure. Your doctor may also give you more specific instructions. If you have problems or questions, contact your doctor. Follow these instructions at home: Medicines ??? Take bwum-ftl-yzpmyse and prescription medicines only as told by [...] cannot use soap and water, use hand union carpenter. ? Change your dressing as told by [...] 03/10/2014 Document Revised: 04/17/2017 Document Reviewed: 04/17/2017 [employer]keley [employer] Interactive Patient Education ?? 2019 LUMO Bodytech Inc. Emergency Awareness and Preventative Care STROKE [...] Assistance with quitting is available by contacting 5-361-UVBY-NOW. This is a free resource providing counseling, support, and referral. Or you may contact your personal physician. rag & bone Suicide Prevention Lifeline: The National Suicide Prevention [...] range between ( 0.0 and 7.0 ) [place] #: 0.72 K/uL -- Normal range between ( 0.16 and 1.00 ) Eos #: 0.02 x10(3)/uL -- Normal range between ( 0.00 and 0.80 ) [place] %: 6.9 % -- Normal range between [...] RBC Morphology: Normal ANC #: 6 K/uL [place] Percent Man: 8 % -- Normal range [...] was given the opportunity to ask questions. Patient/Oracle Dba Name: Patient/Oracle Dba Signature: Relationship to Patient: Clinician/Hospital Oracle Dba Signature: Date: Electronically signed by Destiny, [facility] Conversion Us Customs And Border Officer Cerner at 07/05/2022 8:26 PM CDT documented in this encounter Plan of Treatment Not on file documented as of this encounter Visit Diagnoses Not on filedocumented in this encounter Care Teams Director [employer] Retail Relationship Specialty Start Date End Date Martinez Gutierrez MD [address] [place] [address] PCP - General Family Medicine 10/05/22 documented as of this encounter
--- OUTSIDE RECORDS SUMMARY | 2024-11-12 12:35 | XMS_ITS | Encounter Summary ---
Author Organization [employer] ([place], [place], [place], [place]) Address [address] [place] [address] Care Team Providers Care Ceramic Engineer Name Role Phone Martinez Canseco MD Primary Care Provider Encounter Details Date Type Department Care Team (Late st Contact Info) Description 09/13/2018 Transcribed Document [facility] Family Medicine [address] [place] [address] ProviderIvan MD [address] [place] [address] Social History Tobacco Use Types Packs/Day Years [...] On: 09/13/2018 9:47 EDT by BIRGIT IQBAL Ldr Rn Final Discharge Planning Discharge Arrangements : Patient Post-Acute Information Patient Name: AUGUSTO PACHECO Gender: Male : [birth year] Age: 67 Years [place] Referral(s): Service: Organization: Business Address: Phone Number: Acute Rehab [facility] [address] [facility] , [place], [address] Important Medicare Message Reviewed With : Patient Important Medicare Message Reviewed D/T : 09/13/2018 9:30 EDT Transportation Needs : Family/Friend Discharge Transportation Arrangement Cmt : [facility] will transport to facility Follow Up Appointment Scheduled : Yes Patient/Family Notified of Plan : Yes Patient/Family Notified : Darly Loza. Discharge To Care Management : IRF -Inpatient Rehabilitation Facility-62 BIRGIT IQBAL Ldr Rn - 09/13/2018 9:47 EDT Final Narrative Note Final Narrative Note : Continue to follow for discharge needs and arrangements, chart reviewed, patient to discharge and transfer to [facility] (loc=acute rehab) today. Patient to be transported via brother, who is at bedside, portable O2 for transport to be delivered to bedside via [facility]. RN report to be called to [phone], DC summary to be faxed to [phone]. Pt, RN and family aware and in agreement with plan. BIRGIT IQBAL Ldr Rn - 09/13/2018 9:47 EDT Electronically signed by Destiny [facility] Conversion Welder Apprentice Cerner at 07/05/2022 8:34 PM CDT documented in this encounter Plan of Treatment Not on file documented as of this encounter Visit Diagnoses Not on filedocumented in this encounter Care Teams Ceramic Engineer Relationship Specialty Start Date End Date Martinez Canseco MD [address] [place] [address] PCP - General Family Medicine 10/05/22 documented as of this encounter
--- OUTSIDE RECORDS SUMMARY | 2024-11-12 12:35 | XMS_ITS | Encounter Summary ---
Author Organization [employer] ([place], [place], [place], [place]) Address [address] [place] [address] Care Team Providers Care Contemporary Or Modern Dancer Name Role Phone Martinez Canseco MD Primary Care Provider [phone] Encounter Details Date Type Department Care Team (Late st Contact Info) Description 09/06/2018 Transcribed Document [facility] Family Medicine [address] [place] [address] ProviderIvan MD [address] [place] [address] Social History Tobacco Use Types [...] - 09/06/2018 10:39 EDT Electronically signed by [facility] Conversion Launch Leader Cerner at 07/05/2022 8:37 PM CDT documented in this encounter Plan of Treatment Not on file documented as of this encounter Visit Diagnoses Not on filedocumented in this encounter Care Teams Contemporary Or Modern Dancer Relationship Specialty Start Date End Date Martinez Canseco MD [address] [place] [address] PCP - General Family Medicine 10/05/22 documented as of this encounter
--- OUTSIDE RECORDS SUMMARY | 2024-11-12 12:35 | XMS_ITS | Referral Summary ---
Author Organization [employer] ([place], [place], [place], [place]) Address [address] [place] [address] Care Team Providers Care Shoe Sprayer Name Role Phone Martinez Canseco MD Primary Care Provider [phone] Encounters Date Type Department Care Team Description 10/29/2024 Travel 10/29/2024 10:30 AM EDT Audio - Telemedicine [facility] [address] [place] [address] [phone] Adalberto Painting MD Liver mass (Primary Dx) 10/27/2024 Travel 10/27/2024 9:32 AM EDT - 10/27/2024 11:59 PM EDT Hospital Encounter [facility] [address] [phone] Adalberto Painting MD Liver mass Discharge Disposition: Home or Self Care 10/13/2024 Orders Only [facility] [address] [place] [address] [phone] Adalberto Painting MD Liver mass (Primary Dx) [...] Date Iain rded Speak language other than Portuguese at home Not on file 03/31/2023 Want [...] Mass Index 33.51 10/27/2024 9:45 AM EDT Plan of Treatment Not on file Procedures Procedure Name Priority Date/Time Associated Diagnosis Comments MR ABDOMEN WITH & WITHOUT IV CONTRAST Routine 10/27/2024 10:14 AM EDT Liver mass POCT-CREATININE NOVA Routine 10/27/2024 9:50 AM EDT from Last 3 Months Results * MR abdomen without & with [...] by Henry Bolivar MD Adalberto Painting MD G MRI ORDERABLES Final Result * POC-Creatinine (10/27/2024 9:50 AM EDT) POC-Creatinine 1.2 mg/dL 10/27/2024 9:51 AM EDT [facility] POC-EGFR >60 mL/min/1. 73M2 10/27/2024 9:51 AM EDT [facility] Comment:Proceed with contras t if eGFR > 45 ml/min/1.73 when performed on the NovaSTAT strip Creatinine meter. Dashboard Developer RICHAR TOVAR 10/27/2024 9:51 AM EDT [facility] Blood 10/27/2024 9:50 AM EDT 10/27/2024 9:51 AM EDT Narrative [facility] - 10/27/2024 9:51 AM EDT Dashboard Developer ID is - [id number] Adalberto Painting MD POINT OF CARE TEST ORDERABLES Fi nal Result [facility] [address] [phone] from Last 3 Months Insurance MEDICARE [place] [address] [place] [address] Care Teams Shoe Sprayer Relationship Specialty Start Date End Date Martinez Canseco MD [address] [place] [address] PCP - General Family Medicine 10/05/22
--- OUTSIDE RECORDS SUMMARY | 2024-11-12 12:35 | XMS_ITS | Encounter Summary ---
Author Organization [employer] ([place], [place], [place], [place]) Address [address] [place] [address] Care Team Providers Care Mining Professionals Name Role Phone Martinez Canseco MD Primary Care Provider [phone] Encounter Details Date Type Department Care Team (Late st Contact Info) Description 09/07/2018 Transcribed Document [facility] [place] [address] [place] [address] ProviderIvan MD [address] [place] [address] Social History Tobacco Use Types Packs/Day Years [...] 4:46 EDT Electronically signed by Destiny [facility] Conversion Wiener Packer Cerner at 07/05/2022 8:50 PM CDT documented in this encounter Plan of Treatment Not on file documented as of this encounter Visit Diagnoses Not on filedocumented in this encounter Care Teams Mining Professionals Relationship Specialty Start Date End Date Martinez Canseco MD [address] [place] [address] PCP - General Family Medicine 10/05/22 documented as of this encounter
--- OUTSIDE RECORDS SUMMARY | 2024-11-12 12:35 | XMS_ITS | Encounter Summary ---
Author Organization [employer] ([place], [place], [place], [place]) Address [address] [place] [address] Care Team Providers Care Revenue Coordinator Name Role Phone Martinez Canseco MD Primary Care Provider [phone] Encounter Details Date Type Department Care Team (Late st Contact Info) Description 09/13/[address] [facility] [place] Family Medicine [address] [place] [address] ProviderIvan MD [address] [place], [place] [address] Social History Tobacco Use Types Packs/Day Years [...] 1950 Associated Diagnoses: None Author: ANGELINE JAY, CATHODE WASHER-CTS Admission Date: Discharge Date: Attending:Dr. Kyler Gaxiola, [...] Mitral valve repair using a 30 mm CareHubstronic CG annuloplasty band. 3. Coronary artery bypass [...] HI Interpretation: Radiology Results (Last 48 hours) [id number] -- 09/02/2018 14:21 CR Chest 1 Vw [...] dictated by Dr. Tere Paz.Transcribed by Simon rGesham PA-C.I have personally viewed, interpreted and dictated [...] Admission ( transfer from [facility] 09/03: Carotid duplex and PFTs JESUSITA - moderate to severe MR 09/04: MV repair and CABGx2 09/05: POD#1 Intubated Consult Pulm for vent management Lasix 60mg IV x 1 Wean gtts as tolerated 09/06: POD#2 Hopefully can wean and extubate today Continue to wean gtts as tolerated 09/08: POD # 4 Transfer to [facility] 09/09: POD #5 Nausea improving Hypotension - hold BB and lisinopril Cr worse today 1.2 (from0.9) - suspected hypoperfusion 09/10: POD # 6 Nausea better today, still decreased appetite Family would like discharge to rehab to [facility] in [facility] - precert initiated Cr improved today [...] early am) Pt has Rehab bed at [facility] ( [facility]), if pt remains in sinus and O2 [...] site sutures may be anytime after Sunday, documented in this encounter Plan of Treatment Not on file documented as of this encounter Visit Diagnoses Not on filedocumented in this encounter Care Teams Revenue Coordinator Relationship Specialty Start Date End Date Martinez Canseco MD [address] [place] [address] PCP - General Family Medicine 10/05/22 documented as of this encounter
--- OUTSIDE RECORDS SUMMARY | 2024-11-12 12:35 | XMS_ITS | Encounter Summary ---
Author Organization [employer] ([place], [place], [place], [place]) Address [address] [place] [address] Care Team Providers Care Cloth Bale Header Name Role Phone Martinez Canseco MD Primary Care Provider [phone] Encounter Details Date Type Department Care Team (Late st Contact Info) Description 09/12/2018 Transcribed Document [facility] [place] Family Medicine [address] [place] [address] ProviderIvan MD [address] [place], [place] [address] Social History Tobacco Use Types Packs/Day Years [...] on filedocumented in this encounter Care Teams Cloth Bale Header Relationship Specialty Start Date End Date Martinez Canseco MD [address] [place] [address] PCP - General Family Medicine 10/05/22 documented as of this encounter
--- OUTSIDE RECORDS SUMMARY | 2024-11-12 12:35 | XMS_ITS | Encounter Summary ---
Author Organization [employer] ([place], [place], [place], [place]) Address [address] [place] [address] Care Team Providers Care Director Of Special Services Name Role Phone Martinez Canseco MD Primary Care Provider [phone] Encounter Details Date Type Department Care Team (Late st Contact Info) Description 09/07/2018 Transcribed Document [facility] [place] Family Medicine [address] [place] [address] ProviderIvan MD [address] [place] [address] Social History Tobacco Use Types [...] in this encounter Care Teams Director Of Special Services Relationship Specialty Start Date End Date Martinez Canseco MD [address] [place] [address] PCP - General Family Medicine 10/05/22 documented as of this encounter
--- OUTSIDE RECORDS SUMMARY | 2024-11-12 12:35 | XMS_ITS | Encounter Summary ---
Author Organization [employer] ([place], [place], [place], [place]) Address [address] [place] [address] Care Team Providers Care Road Machine Operator Name Role Phone Martinez Canseco MD Primary Care Provider [phone] Encounter Details Date Type Department Care Team (Late st Contact Info) Description 09/06/2018 Transcribed Document [facility] [place] Family Medicine [address] [place] [address] ProviderIvan MD [address] [place] [address] Social History Tobacco Use Types [...] Performed On: 09/06/2018 17:00 EDT by DESIREE Figueroa RN Chart Check Powerplans Initiated/Discontinued as Appropriate : Yes All Active Orders Reviewed : Yes DESIREE Figueroa, RN - 09/06/2018 20:46 EDT Electronically signed by Destiny [facility] Conversion Ict Sales Representative Cerner at 07/05/2022 8:40 PM CDT documented in this encounter Plan of Treatment Not on file documented as of this encounter Visit Diagnoses Not on filedocumented in this encounter Care Teams Road Machine Operator Relationship Specialty Start Date End Date Martinez Canseco MD [address] [place] [address] PCP - General Family Medicine 10/05/22 documented as of this encounter
--- OUTSIDE RECORDS SUMMARY | 2024-11-12 12:35 | XMS_ITS | Encounter Summary ---
Author Organization [employer] ([place], [place], [place], [place]) Address [address] [place] [address] Care Team Providers Care Tire And Lube Technician Name Role Phone Martinez Canseco MD Primary Care Provider [phone] Encounter Details Date Type Department Care Team (Late st Contact Info) Description 09/12/2018 Transcribed Document [facility] Family Medicine [address] [place] [address] ProvidervIan MD [address] [place], [place] [address] Social History Tobacco Use Types Packs/Day Years [...] On: 09/12/2018 14:14 EDT by BIRGIT IQBAL Lead Ios Developer Care Management Progress Note Discharge Arrangements : Patient Post-Acute Information Patient Name: AUGUSTO PACHECO Gender: Male : [birth year] Age: 67 Years Curaspan Referral(s): Service: Organization: Business Address: Phone Number: [facility] [address], [place], [address] Discharge Options Discussed with Patient : DME, Home Health, Short term rehabilitation Barriers to Discharge Identified : Clinical Condition of Patient Barriers to Discharge Unresolved : Clinical Condition of Patient Patient Offered Choice/Affiliations Explained : Yes Is the Patient Meeting Medical Necessity : Yes BIRGIT IQBAL Lead Ios Developer - 09/12/2018 14:14 EDT Narrative Progress Note Narrative Progress Note : Continue to follow for discharge needs and arrangements, chart reviewed, day 10, 6 liters O2, BUN=32, WBC=10.6, CXR=IMPRESSION: Stable bibasilar airspace disease and small pleural effusions; s/p bronch, afib over night, started IV Amio/transition to PO Amio, PT/OT following - plan is to transition to [facility] for rehab placement; updated clinical information has been forwarded to facility to day via [employer]. CM will continue to follow. BIRGIT IQBAL Lead Ios Developer - 09/12/2018 14:14 EDT documented in this encounter Plan of Treatment Not on file documented as of this encounter Visit Diagnoses Not on filedocumented in this encounter Care Teams Tire And Lube Technician Relationship Specialty Start Date End Date Martinez Canseco MD [address] [place] [address] PCP - General Family Medicine 10/05/22 documented as of this encounter
--- OUTSIDE RECORDS SUMMARY | 2024-11-12 12:35 | XMS_ITS | Encounter Summary ---
Author Organization [employer] ([place], [place], [place], [place]) Address [address] [place] [address] Care Team Providers Care Staff Pharmacist Name Role Phone Martinez Canseco MD Primary Care Provider [phone] Encounter Details Date Type Department Care Team (Late st Contact Info) Description 09/10/2018 Transcribed Document [facility] [place] Medicine [address] [place] [address] ProviderIvan MD [address] [place], [place] [address] Social History Tobacco Use Types Packs/Day Years [...] Bed scale Routine Weight Entry Format : [place] Routine Weight, Pounds : 226 lb Routine Weight, Ounces : 6 oz Routine Weight Calculation : 102.9 kg Height Source : Stated Height Entry Format : [place] Height, Feet : 6 ft Height, Inches : 1 Inch Clinical Height : 185.42 cm Body Surface Area (BSA), Routine : 2.27 m2 Body Mass Index (BMI), Routine : 29.93 kg/m2 Blaine Miranda Care Asst-Health Unit [facility] - 09/10/2018 4:17 EDT Electronically signed by [facility] Conversion Track Maintainer Cerner at 07/05/2022 8:49 PM CDT documented in this encounter Plan of Treatment Not on file documented as of this encounter Visit Diagnoses Not on filedocumented in this encounter Care Teams Staff Pharmacist Relationship Specialty Start Date End Date Martinez Canseco MD [address] [place] [address] PCP - General Family Medicine 10/05/22 documented as of this encounter
--- OUTSIDE RECORDS SUMMARY | 2024-11-12 12:35 | XMS_ITS | Encounter Summary ---
Author Organization [employer] ([place], [place], [place], [place]) Address [address] [place] [address] Care Team Providers Care Director Market Research Name Role Phone Martinez Canseco MD Primary Care Provider [phone] Encounter Details Date Type Department Care Team (Late st Contact Info) Description 09/10/2018 Transcribed Document [facility] Family Medicine [address] [place] [address] ProviderIvan MD [address] [place], [place] [address] Social History Tobacco Use Types Packs/Day Years [...] Meghan Jansen, RN - 09/10/2018 12:33 EDT documented in this encounter Plan of Treatment Not on file documented as of this encounter Visit Diagnoses Not on filedocumented in this encounter Care Teams Director Market Research Relationship Specialty Start Date End Date Martinez Canseco MD [address] [place] [address] PCP - General Family Medicine 10/05/22 documented as of this encounter
--- OUTSIDE RECORDS SUMMARY | 2024-11-12 12:35 | XMS_ITS | Encounter Summary ---
Author Organization [employer] ([place], [place], [place], [place]) Address [address] [place] [address] Care Team Providers Care Furnace Caretaker Name Role Phone Martinez Canseco MD Primary Care Provider Encounter Details Date Type Department Care Team (Late st Contact Info) Description 09/10/2018 Transcribed Document [facility] Family Medicine [address] [place] [address] ProviderIvan MD [address] [place], [place] [address] Social History Tobacco Use Types Packs/Day Years [...] on filedocumented in this encounter Care Teams Furnace Caretaker Relationship Specialty Start Date End Date Martinez Canseco MD [address] [place] [address] PCP - General Family Medicine 10/05/22 documented as of this encounter
--- OUTSIDE RECORDS SUMMARY | 2024-11-12 12:35 | XMS_ITS | Encounter Summary ---
Author Organization [employer] ([place], [place], [place], [place]) Address [address] [place] [address] Care Team Providers Care Machine Heddle Cleaner Name Role Phone Martinez Canseco MD Primary Care Provider [phone] Encounter Details Date Type Department Care Team (Late st Contact Info) Description 09/11/2018 Transcribed Document [facility] [place] [facility] Family Medicine [address] [place] [address] ProviderIvan MD [address] [place], [place] [address] Social History Tobacco Use Types Packs/Day Years [...] Performed On: 09/11/2018 17:00 EDT by Hope Troy RN Chart Check Powerplans Initiated/Discontinued as Appropriate : Yes All Active Orders Reviewed : Yes Hope Troy, RN - 09/11/2018 15:41 EDT Electronically signed by Destiny [facility] Conversion Chairperson Anesthesiology Cerner at 07/05/2022 8:32 PM CDT documented in this encounter Plan of Treatment Not on file documented as of this encounter Visit Diagnoses Not on filedocumented in this encounter Care Teams Machine Heddle Cleaner Relationship Specialty Start Date End Date Martinez Canseco MD [address] [place] [address] PCP - General Family Medicine 10/05/22 documented as of this encounter
--- OUTSIDE RECORDS SUMMARY | 2024-11-12 12:35 | XMS_ITS | Encounter Summary ---
Author Organization [employer] ([place], [place], [place], [place]) Address [address] [place] [address] Care Team Providers Care Operating System Programmer Name Role Phone Martinez Canseco MD Primary Care Provider [phone] Encounter Details Date Type Department Care Team (Late st Contact Info) Description 09/09/[address] [facility] [place] Family Medicine [address] [place] [address] ProviderIvan MD [address] [place] [address] Social History Tobacco Use Types Packs/Day Years [...] on filedocumented in this encounter Care Teams Operating System Programmer Relationship Specialty Start Date End Date Martinez Canseco MD [address] [place] [address] PCP - General Family Medicine 10/05/22 documented as of this encounter
--- OUTSIDE RECORDS SUMMARY | 2024-11-12 12:35 | XMS_ITS | Encounter Summary ---
Author Organization [employer] ([place], [place], [place], [place]) Address [address] [place] [address] Care Team Providers Care Stadium Attendant Name Role Phone Martinez Canseco MD Primary Care Provider [phone] Reason for Referral * MRI (Routine) - Closed Specialty Diagnoses / Procedures Referred By Contac t Referred To Contact Radiology Diagnoses Liver mass Procedures MR abdomen without & with IV contrast Adalberto Painting MD [address] [place] [address] [place] [address] Phone: tel: fax: Referral ID Status Reason Start Date Expiration Date Visits Re quested Visits Authorized [id number] Closed 10/13/2024 10/13/2025 1 1 Encounter Details Date Type Department Care Team (Late st Contact Info) Description 10/13/2024 Orders Only [facility] [address] [place] [address] [address] Adalberto Painting MD [address] [place] [address] [place] [address] Liver mass (Primary Dx) Social History Tobacco [...] Date Iain rded Speak language other than Beninese at home Not on file 03/31/2023 Want [...] on file documented as of this encounter Results * MR abdomen without [...] Painting MD IM MRI ORDERABLES Final Result documented in this encounter Visit Diagnoses Diagnosis Liver mass- Primary Unspecified disorder of liver Liver mass Unspecified disorder of liver documented in this encounter Care Teams Stadium Attendant Relationship Specialty Start Date End Date Martinez Canseco MD [address] [place] [address] PCP - General Family Medicine 10/05/22 documented as of this encounter
--- OUTSIDE RECORDS SUMMARY | 2024-11-12 12:35 | XMS_ITS | Encounter Summary ---
Author Organization [employer] ([place], [place], [place], [place]) Address [address] [place] [address] Care Team Providers Care Insights Manager Name Role Phone Martinez Canseco MD Primary Care Provider Encounter Details Date Type Department Care Team (Late st Contact Info) Description 09/07/2018 Transcribed Document [facility] [place] [address] [place] [address] ProviderIvan MD [address] [place], [place] [address] Social History Tobacco Use Types Packs/Day Years [...] : 09/05/2018 00:00 Atherosclerotic heart disease of [place] coronary artery without angina pectoris 09/05/2018 00:00 [...] 14:21 Co-treated by, PT : Occupational Therapist, angiography technologist/aide Personal Devices : Personal Devices No Devices [...] Verbalizes understanding, Returns demonstration, Needs reinforcement LEONELA SOUZA, PT - 09/10/2018 15:36 EDT Indication Assesessment, [...] LEONELA SOUZA, PT - 09/10/2018 15:36 EDT Residential Goals Mobility/Bed Mobility LTG PT Grid Goal [...] LEONELA SOUZA PT - 09/10/2018 15:36 EDT Electronically signed by Destiny [facility] Conversion Trouble Locator Test Desk Cerner at 07/05/2022 8:52 PM CDT documented in this encounter Plan of Treatment Not on file documented as of this encounter Visit Diagnoses Not on filedocumented in this encounter Care Teams Insights Manager Relationship Specialty Start Date End Date Martinez Canseco MD [address] [place], [place] [address] PCP - General Family Medicine 10/05/22 documented as of this encounter
--- OUTSIDE RECORDS SUMMARY | 2024-11-12 12:35 | XMS_ITS | Encounter Summary ---
Author Organization [employer] ([place], [place], [place], [place]) Address [address] [place] [address] Care Team Providers Care Dry Press Operator Helper Name Role Phone Martinez Canseco MD Primary Care Provider [phone] Encounter Details Date Type Department Care Team (Late st Contact Info) Description 09/10/2018 Transcribed Document [facility] Pulm & Critical Care Medicine [address] [place] [address] [address] [place] [address] [place] [address] [address] [place] [address] Social History Tobacco Use Types [...] to have MVCAD. He was transferred to [facility] for CTS evaluation. 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 CAD (coronary artery disease) / SNOMED CT 74177212 / Confirmed Pulmonary fibrosis / SNOMED CT 64530741 / Confirmed History of colostomy reversal / SNOMED CT 867191947 / Confirmed History of broken nose / SNOMED CT 1415955180 / Confirmed H/O right heart catheterization / SNOMED CT 7547141379 / Confirmed H/O hernia repair / SNOMED CT 6906076869 / Confirmed History of tonsillectomy / SNOMED CT 6336433347 / Confirmed COPD, moderate / SNOMED CT 376231056 / Confirmed Pneumonia / SNOMED CT 518297378 / Confirmed Smoker / SNOMED CT 009191801 / Confirmed, Active Problems (13) At risk [...] 35.4 HI 09/10/2018 15:52 BE Art 11.7 AK 09/10/2018 15:52 sO2 Art 89.7 LOW 09/10/2018 [...] 30.1 \ Radiology Results (Last 48 hours) [id number] -- 09/02/2018 14:21 CR Chest 1 Vw [...] section axial CT with IV contrast supplemented [id number] MIP images. FINDINGS: Pulmonary vessels enhance in [...] Pepcid/Start DVT prophylaxis when ok with CTS thanks krzysztof blankenship level 3 documented in this encounter Plan of Treatment Not on file documented as of this encounter Visit Diagnoses Not on filedocumented in this encounter Care Teams Dry Press Operator Helper Relationship Specialty Start Date End Date Martinez Canseco MD [address] [place] [address] PCP - General Family Medicine 10/05/22 documented as of this encounter
--- OUTSIDE RECORDS SUMMARY | 2024-11-12 12:35 | XMS_ITS | Encounter Summary ---
Author Organization [employer] ([place], [place], [place], [place]) Address [address] [place] [address] Care Team Providers Care Proposal Specialist Name Role Phone Martinez Canseco MD Primary Care Provider [phone] Encounter Details Date Type Department Care Team (Late st Contact Info) Description 09/08/2018 Transcribed Document [facility] [place] Family Medicine [address] [place] [address] ProviderIvan MD [address] [place] [address] Social History Tobacco Use Types [...] ok to transfer to tele. Remove Cordis. documented in this encounter Plan of Treatment Not on file documented as of this encounter Visit Diagnoses Not on filedocumented in this encounter Care Teams Proposal Specialist Relationship Specialty Start Date End Date Martinez Canseco MD [address] [place] [address] PCP - General Family Medicine 10/05/22 documented as of this encounter
--- OUTSIDE RECORDS SUMMARY | 2024-11-12 12:35 | XMS_ITS | Encounter Summary ---
Author Organization [employer] ([place], [place], [place], [place]) Address [address] [place] [address] Care Team Providers Care Medical Claims Analyst Name Role Phone Martinez Canseco MD Primary Care Provider [phone] Encounter Details Date Type Department Care Team (Late st Contact Info) Description 09/08/2018 Transcribed Document [facility] Family Medicine [address] [place] [address] ProviderIvan MD [address] [place] [address] Social History Tobacco Use Types Packs/Day Years [...] CHUCHO RESTREPO RN - 09/08/2018 4:37 EDT documented in this encounter Plan of Treatment Not on file documented as of this encounter Visit Diagnoses Not on filedocumented in this encounter Care Teams Medical Claims Analyst Relationship Specialty Start Date End Date Martinez Canseco MD [address] [place] [address] PCP - General Family Medicine 10/05/22 documented as of this encounter
--- OUTSIDE RECORDS SUMMARY | 2024-11-12 12:35 | XMS_ITS | Encounter Summary ---
Author Organization [employer] ([place], [place], [place], [place]) Address [address] [place] [address] Care Team Providers Care Stacker Operator Name Role Phone Martinez Canseco MD Primary Care Provider [phone] Encounter Details Date Type Department Care Team (Late st Contact Info) Description 09/06/2018 Transcribed Document [facility] [place] Family Medicine [address] [place] [address] ProviderIvan MD [address] [place], [place] [address] Social History Tobacco Use Types Packs/Day Years [...] Ivan ProviderMD - 09/06/2018 2:00 AM CDT Medical Records Manager Details Entered On: 09/06/2018 1:45 EDT Performed [...] on filedocumented in this encounter Care Teams Stacker Operator Relationship Specialty Start Date End Date Martinez Canseco MD [address] [place] [address] PCP - General Family Medicine 10/05/22 documented as of this encounter
--- OUTSIDE RECORDS SUMMARY | 2024-11-12 12:35 | XMS_ITS | Encounter Summary ---
Author Organization [employer] ([place], [place], [place], [place]) Address [address] [place] [address] Care Team Providers Care Press Tender Long Goods Name Role Phone Martinez Canseco MD Primary Care Provider [phone] Encounter Details Date Type Department Care Team (Late st Contact Info) Description 09/11/2018 Transcribed Document [facility] [place] Family Medicine [address] [place] [address] ProviderIvan MD [address], [place] [address] Social History Tobacco Use Types Packs/Day Years [...] On: 09/11/2018 16:38 EDT by LEANDER FAUSTIN, Karla-Subscription Agent ED Care Management Progress Note Discharge Arrangements : Patient Post-Acute Information Patient Name: AUGUSTO PACHECO Gender: Male : 54 Age: 67 Years Curaspan Referral(s): Service: Organization: Business Address: Phone Number: Acute Rehab [facility] [address] , [place], [address] Discharge Options Discussed with Patient : DME, Home Health, Short term rehabilitation Barriers to Discharge Identified : Clinical Condition of Patient Barriers to Discharge Unresolved : Clinical Condition of Patient Patient Offered Choice/Affiliations Explained : Yes Were Referrals Sent to Post Acute Providers : Yes LEANDER FAUSTIN, Rn-Subscription Agent ED - 09/11/2018 16:38 EDT Narrative Progress Note Narrative Progress Note : Bronch with Dr. Grimes today. POD #7 MVR and CABG x2. Pt is on high flow NC 12L post procedure. HR 118. Per CTS note, pt will likely be ready for d/c 24-48hrs. Spoke with Elyssa and Echo at [facility] p [phone] f [phone] who are following for admission. Updates sent to facility via [employer]. LEANDER FAUSTIN, Rn-Subscription Agent ED - 09/11/2018 16:38 EDT documented in this encounter Plan of Treatment Not on file documented as of this encounter Visit Diagnoses Not on filedocumented in this encounter Care Teams Press Tender Long Goods Relationship Specialty Start Date End Date Martinez Canseco MD [address] [place] [address] PCP - General Family Medicine 10/05/22 documented as of this encounter
--- OUTSIDE RECORDS SUMMARY | 2024-11-12 12:35 | XMS_ITS | Encounter Summary ---
Author Organization [employer] ([place], [place], [place], [place]) Address [address] [place] [address] Care Team Providers Care Academic Services Coordinator Name Role Phone Martinez Canseco MD Primary Care Provider [phone] Encounter Details Date Type Department Care Team (Late st Contact Info) Description 09/06/[address] [facility] [place] [address] [place] [address] ProviderIvan MD [address] [place] [address] Social History Tobacco Use Types [...] 09/06/2018 20:46 EDT Electronically signed by Destiny [facility] Conversion Air Purifier Servicer Cerner at 07/05/2022 8:48 PM CDT documented in this encounter Plan of Treatment Not on file documented as of this encounter Visit Diagnoses Not on filedocumented in this encounter Care Teams Academic Services Coordinator Relationship Specialty Start Date End Date Martinez Canseco MD [address] [place], [place] [id number] PCP - General Family Medicine 10/05/22 documented as of this encounter
--- OUTSIDE RECORDS SUMMARY | 2024-11-12 12:35 | XMS_ITS | Encounter Summary ---
Author Organization [employer] ([place], [place], [place], [place]) Address [address] [place] [address] Care Team Providers Care Tailor Garment Fitter Name Role Phone Martinez Canseco MD Primary Care Provider [phone] Encounter Details Date Type Department Care Team (Late st Contact Info) Description 09/11/2018 Transcribed Document [facility] [place] [address] [place] [address] ProviderIvan MD [address] [place], [place] [address] Social History Tobacco Use Types Packs/Day Years [...] and emphysematous lungs; CAD (coronary artery disease), [place] coronary artery Author: LEANDER WHEELER PA Basic [...] Non-distended, Normal bowel sounds. Integumentary: Warm, Dry, [place], Aquacel dressing is C/D/I. Neurologic: Alert, Oriented, No focal deficits. Psychiatric: Mood and affect: Calm. Review / Management Results review: SEP 11 04:35 146 106 H 31 / H 116 3.6 H 37 0.90 \ SEP 11 04:35 \ L 10.1 / H 9.9 327 / L 30.4 \. Radiology results Radiology Results (Last 48 hours) [id number] -- 09/02/2018 14:21 CR Chest 1 Vw [...] section axial CT with IV contrast supplemented [id number] MIP images. FINDINGS: Pulmonary vessels enhance in [...] tolerated 09/08: POD # 4 Transfer [facility] 09/09: POD #5 Nausea improving Hypotension - hold BB and lisinopril Cr worse today 1.2 (from0.9) - suspected hypoperfusion 09/10: POD # 6 Nausea better today, still decreased appetite Family would like discharge to rehab to [facility] in [facility] - precert initiated Cr improved today [...] Pre-Op Diagnosis, Medical. CAD (coronary artery disease), [place] coronary artery - Admitting, Medical. CAD (coronary artery disease), [place] coronary artery - Discharge, Medical. Electronically signed by Interface, [facility] Conversion Chairman And Ceo Cerner at 07/05/2022 8:34 PM CDT documented in this encounter Plan of Treatment Not on file documented as of this encounter Visit Diagnoses Not on filedocumented in this encounter Care Teams Tailor Garment Fitter Relationship Specialty Start Date End Date Martinez Canseco MD [address] [place] [address] PCP - General Family Medicine 10/05/22 documented as of this encounter
--- OUTSIDE RECORDS SUMMARY | 2024-11-12 12:35 | XMS_ITS | Encounter Summary ---
Author Organization [employer] ([place], [place], [place], [place]) Address [address] [place] [address] Care Team Providers Care [place] Actor Name Role Phone Martinez Canseco MD Primary Care Provider [phone] Encounter Details Date Type Department Care Team (Latest Contact Info) Description 10/29/2024 Travel Social History Tobacco Use Types Packs/Day Years [...] Date Iain rded Speak language other than Puerto Rican at home Not on file 03/31/2023 Want [...] on filedocumented in this encounter Care Teams [place] Actor Relationship Specialty Start Date End Date Martinez Canseco MD [address] [place] [address] PCP - General Family Medicine 10/05/22 documented as of this encounter
--- OUTSIDE RECORDS SUMMARY | 2024-11-12 12:35 | XMS_ITS | Encounter Summary ---
Author Organization [employer] ([place], [place], [place], [place]) Address [address] [place] [address] Care Team Providers Care Superintendent Water And Sewer Systems Name Role Phone Martinez Canseco MD Primary Care Provider [phone] Encounter Details Date Type Department Care Team (Late st Contact Info) Description 09/12/2018 Transcribed Document [facility] [place] Family Medicine [address] [place] [address] ProviderIvan MD [address] [place], [place] [address] Social History Tobacco Use Types Packs/Day Years [...] Ivan ProviderMD - 09/12/2018 2:00 AM CDT Police Officer Details Entered On: 09/12/2018 1:10 EDT Performed [...] 09/12/2018 1:09 EDT Electronically signed by Destiny [facility] Conversion Deputy Jailer Cerner at 07/05/2022 8:37 PM CDT documented in this encounter Plan of Treatment Not on file documented as of this encounter Visit Diagnoses Not on filedocumented in this encounter Care Teams Superintendent Water And Sewer Systems Relationship Specialty Start Date End Date Martinez Canseco MD [address] [place] [address] PCP - General Family Medicine 10/05/22 documented as of this encounter
--- OUTSIDE RECORDS SUMMARY | 2024-11-12 12:35 | XMS_ITS | Encounter Summary ---
Author Organization [employer] ([place], [place], [place], [place]) Address [address] [place] [address] Care Team Providers Care Tobacco Drying Machine Operator Name Role Phone Martinez Canseco MD Primary Care Provider [phone] Encounter Details Date Type Department Care Team (Late st Contact Info) Description 09/12/2018 Transcribed Document [facility] Pulm & Critical Care Medicine [address] [place] [address] [address] [place] [address] [place] [address] [address] [place] [address] Social History Tobacco Use Types [...] have MVCAD. He was transferred to [facility] for CTS evaluation. 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 Radiology Results (Last 48 hours) [id number] -- 09/02/2018 14:21 CTA Chest PE Protocol (09/10/2018 17:15) Result: CT ANGIOGRAM THORAXHISTORY: Hypoxia. Shortness of breath.TECHNIQUE: Thin section axial CT with IV contrast supplemented [id number] MIP images. FINDINGS: Pulmonary vessels enhance in [...] on filedocumented in this encounter Care Teams Tobacco Drying Machine Operator Relationship Specialty Start Date End Date Martinez Canseco MD [address] [place] [address] PCP - General Family Medicine 10/05/22 documented as of this encounter
--- OUTSIDE RECORDS SUMMARY | 2024-11-12 12:35 | XMS_ITS | Encounter Summary ---
Author Organization [employer] ([place], [place], [place], [place]) Address [address] [place] [address] Care Team Providers Care Banking Representative Name Role Phone Martinez Canseco MD Primary Care Provider [phone] Encounter Details Date Type Department Care Team (Late st Contact Info) Description 09/07/2018 Transcribed Document [facility] [place] Family Medicine [address] [place] [address] ProviderIvan MD [address] [place], [place] [address] Social History Tobacco Use Types Packs/Day Years [...] to have MVCAD. He was transferred to [facility] for CTS evaluation. On 09/04, he [...] Problems At risk for sleep apnea / 60299204 / Confirmed Cardiomegaly / 92364235 / Confirmed Steroid-dependent COPD / 87522625 / Confirmed CAD (coronary artery disease) / 16533163 / Confirmed Pulmonary fibrosis / 20317265 / Confirmed History of colostomy reversal / 667753180 / Confirmed History of broken nose / 7351940585 / Confirmed H/O right heart catheterization / 0952933261 / Confirmed H/O hernia repair / 9345136029 / Confirmed History of tonsillectomy / 0642745268 / Confirmed COPD, moderate / 469772597 / Confirmed Pneumonia / 265423442 / Confirmed Smoker / 291762730 / Confirmed, Active Problems (13) At risk [...] 17) . Radiology Results (Last 48 hours) [id number] -- 09/02/2018 14:21 CR Chest 1 Vw [...] Will sign off. Please call if needed Electronically signed by Destiny [facility] Conversion Plastic Bubble Packer Cerner at 07/05/2022 8:28 PM CDT documented in this encounter Plan of Treatment Not on file documented as of this encounter Visit Diagnoses Not on filedocumented in this encounter Care Teams Banking Representative Relationship Specialty Start Date End Date Martinez Canseco MD [address] [place] [address] PCP - General Family Medicine 10/05/22 documented as of this encounter
--- OUTSIDE RECORDS SUMMARY | 2024-11-12 12:35 | XMS_ITS | Encounter Summary ---
Author Organization [employer] ([place], [place], [place], [place]) Address [address] [place] [address] Care Team Providers Care Contracts Paralegal Name Role Phone Martinez Canseco MD Primary Care Provider [phone] Encounter Details Date Type Department Care Team (Late st Contact Info) Description 09/06/2018 Transcribed Document [facility] [place] Medicine [address] [place] [address] ProviderIvan MD [address] [place], [place] [address] Social History Tobacco Use Types Packs/Day Years [...] On: 09/06/2018 14:38 EDT by JARET BAUM Rn-Water Resource ConsultantAutomation Sales Manager Progress Note Discharge Arrangements : Patient Post-Acute Information Patient Name: AUGUSTO PACHECO Gender: Male : 54 Age: 67 Years No Post-Acute Placement(s) Listed No Post-Acute Service(s) Listed No [place] Referral(s) Listed Discharge Options Discussed with Patient : DME, Home Health Does the Patient have a Floor to SNF Benefit? : Yes Is the Patient Meeting Medical Necessity : Yes JARET BAUM, Rn-Water Resource Consultant - 09/06/2018 14:38 EDT Narrative Progress Note Narrative Progress Note : Day 4 - Confirmed with patient he is willing to participate with OP Cardiac Rehab - choiced [facility]. Patient is willing to consider STR at [facility] in [place], [place] if recommended by PT/OT. JARET BAUM, Rn-Water Resource Consultant - 09/06/2018 14:38 EDT Electronically signed by Destiny [facility] Conversion Net Repairer Cerner at 07/05/2022 8:33 PM CDT documented in this encounter Plan of Treatment Not on file documented as of this encounter Visit Diagnoses Not on filedocumented in this encounter Care Teams Contracts Paralegal Relationship Specialty Start Date End Date Martinez Canseco MD [address] [place] [address] PCP - General Family Medicine 10/05/22 documented as of this encounter
--- OUTSIDE RECORDS SUMMARY | 2024-11-12 12:35 | XMS_ITS | Encounter Summary ---
Author Organization [employer] ([place], [place], [place], [place]) Address [address] [place] [address] Care Team Providers Care Interior Design Principal Name Role Phone Martinez Canseco MD Primary Care Provider [phone] Encounter Details Date Type Department Care Team (Late st Contact Info) Description 09/10/2018 Transcribed Document [facility] [place] [address] [place] [address] ProviderIvan MD [address] [place], [place] [address] Social History Tobacco Use Types Packs/Day Years [...] On: 09/10/2018 10:11 EDT by MAGDALENO LOYA RN-Pricing Strategist Final Discharge Planning Discharge Arrangements : Patient Post-Acute Information Patient Name: AUGUSTO PACHECO Gender: Male : 54 Age: 67 Years Curaspan Referral(s): Service: Organization: Business Address: Phone Number: [facility] [address], [place], [address] Important Medicare Message Reviewed With : Patient Important Medicare Message Reviewed D/T : 09/10/2018 10:00 EDT Transportation Needs : Family/Friend Discharge Transportation Arrangement Cmt : [facility]ago will transpt to facility Patient/Family Notified of Plan : Yes Patient/Family Notified : Daryl Loza. Discharge To Care Management : SNF with Medicare Certification-03, IRF -Inpatient Rehabilitation Facility-62 MAGDALENO LOYA RN-Pricing Strategist - 09/10/2018 10:11 EDT Final Narrative Note Final Narrative Note : CM Spoke w/Zahra @ [facility] re: D/C and Diet needs - pt is on Cardiac Diet and Nutritional note was fax'd to her. CM met w/helena @ [facility]. pt is agreeable w/D/C to [facility] and signed IM and choice form - placed on chart. - poss D/C 09/11, Dago will transpt. MAGDALENO LOYA RN-Pricing Strategist - 09/10/2018 10:11 EDT Electronically signed by Destiny [facility] Conversion Food Science Technician Cerner at 07/05/2022 8:47 PM CDT documented in this encounter Plan of Treatment Not on file documented as of this encounter Visit Diagnoses Not on filedocumented in this encounter Care Teams Interior Design Principal Relationship Specialty Start Date End Date Martinez Canseco MD [address] [place] [address] PCP - General Family Medicine 10/05/22 documented as of this encounter
--- OUTSIDE RECORDS SUMMARY | 2024-11-12 12:35 | XMS_ITS | Encounter Summary ---
Author Organization [employer] ([place], [place], [place], [place]) Address [address] [place] [address] Care Team Providers Care Ocean Import Representative Name Role Phone Martinez Gutierrez MD Primary Care Provider [phone] Encounter Details Date Type Department Care Team (Late st Contact Info) Description 09/13/2018 Transcribed Document [facility] [place] [address] [place] [address] ProviderIvan MD [address] [place], [place] [address] Social History Tobacco Use Types Packs/Day Years [...] 1950 Associated Diagnoses: None Author: ANGELINE JAY, AIRPORT SCREENER-CTS DISCHARGE DISPOSITION Admission Date: Discharge Date: Attending:Dr. Esvin Butts, CT Surgery PCP:Dr. Martinez Gutierrez CARD:Dr. Peng Soto Consultants:Dr. Leeroy Garvey Brief [...] Mitral valve repair using a 30 mm Ektrontronic CG annuloplasty band. 3. Coronary artery bypass [...] HI Interpretation: Radiology Results (Last 48 hours) [id number] -- 09/02/2018 14:21 CR Chest 1 Vw [...] would like discharge to rehab to [facility] in [facility] - precert initiated Cr improved today [...] am) Pt has Rehab bed at [facility] ( [facility]), if pt remains in sinus and O2 [...] after Sunday, DISCHARGE DISPOSTION 1) Discharge to [facility] ( [facility]) 2) Diet: Healthy Heart 3) Activity: Light ( no lifting greater than 10 lbs; no pushing or pulling; do driving for 2 months) 4) Presently on O2 4 liters NC ( wean as tolerated to maintain O2 sat of 90% or greater) 5) Cardiac Rehab: [facility] 6) Discharge Follow Up ESVIN BUTTS - 09/24/2018 01:15 MARTINEZ GUTIERREZ (REF) E - Within 1 week after discharge from Rehab KEYUR SOTO - 09/30/2018 02:20 [facility] - Within 6 weeks 7) [...] Drs. Khoury and Harleen Electronically signed by [facility] Conversion Inspector Fuel Hose Cerner at 07/05/2022 8:29 PM CDT documented in this encounter Plan of Treatment Not on file documented as of this encounter Visit Diagnoses Not on filedocumented in this encounter Care Teams Ocean Import Representative Relationship Specialty Start Date End Date Martinez Gutierrez MD [address] [place] [address] PCP - General Family Medicine 10/05/22 documented as of this encounter
--- OUTSIDE RECORDS SUMMARY | 2024-11-12 12:35 | XMS_ITS | Encounter Summary ---
Author Organization [employer] ([place], [place], [place], [place]) Address [address] [place] [address] Care Team Providers Care Corporate Safety Coordinator Name Role Phone Martinez Canseco MD Primary Care Provider [phone] Encounter Details Date Type Department Care Team (Latest Contact Info) Description 10/27/2024 Travel Social History Tobacco Use Types Packs/Day [...] Date Iain rded Speak language other than Azerbaijani at home Not on file 03/31/2023 Want [...] on filedocumented in this encounter Care Teams Corporate Safety Coordinator Relationship Specialty Start Date End Date Martinez Canseco MD [address] [place] [address] PCP - General Family Medicine 10/05/22 documented as of this encounter
--- OUTSIDE RECORDS SUMMARY | 2024-11-12 12:35 | XMS_ITS | Encounter Summary ---
Author Organization [employer] ([place], [place], [place], [place]) Address [address] [place] [address] Care Team Providers Care Mobile Battery Technician Name Role Phone Martinez Canseco MD Primary Care Provider [phone] Encounter Details Date Type Department Care Team (Late st Contact Info) Description 09/13/2018 Transcribed Document [facility] [place] [address] [place] [address] ProviderIvan MD [address] [place], [place] [address] Social History Tobacco Use Types Packs/Day Years [...] on filedocumented in this encounter Care Teams Mobile Battery Technician Relationship Specialty Start Date End Date Martinez Canseco MD [address] [place] [address] PCP - General Family Medicine 10/05/22 documented as of this encounter
--- OUTSIDE RECORDS SUMMARY | 2024-11-12 12:35 | XMS_ITS | Clinical Summary ---
Author Organization [employer] ([place], [place], [place], [place]) Address [address] [place] [address] Care Team Providers Care Terminologist Name Role Phone Martinez Canseco MD Primary Care Provider [phone] Allergies No known active allergies Medications amLODIPine [...] Date Type Department Care Team Description 10/29/2024 10:30 AM EDT Audio - Telemedicine [facility] [address] [place] [address] [address] Adalberto Painting MD Liver mass (Primary Dx) 10/29/2024 Travel 10/27/2024 9:32 AM EDT - 10/27/2024 11:59 PM EDT Hospital Encounter [facility] [address] [place] [address] Adalberto Painting MD Liver mass Discharge Disposition: Home or Self Care 10/27/2024 Travel 10/13/2024 Orders Only [facility] [address] [address] Adalberto Painting MD Liver mass [...] Date Iain rded Speak language other than Maori at home Not on file 03/31/2023 Want [...] 10/27/2024 9:45 AM EDT Plan of Treatment Health Maintenance Due Date Last Done Comments CT Colonography 1950 Colonoscopy 1950 Colorectal Cancer Screening 1950 FOBT/FIT 1950 Fit-DNA (Cologuard) 1950 Sigmoidoscopy 1950 Depression Screening (12+) 1964 Tobacco Cessation Counseling and Screening (12+) 1964 Hepatitis C Screening 1970 Abdominal Aortic Aneurysm (A AA) Screen 2017 Medicare Initial AWV G0438 08/18/2018 Pneumococcal 50+ years (2 of 2 - PCV) 02/16/2021 02/17/2020 COVID-19 VACCINE (5 - 2023-2 5 season) 2023 07/20/2021, 01/21/2021, 06/23/2020, Additional history exists Falls Risk Screening 03/19/2024 Influenza Vaccine (#1) 2024 12/29/2021, 2019 DTAP/TDAP/TD VACCINES (3 - T d or Tdap) 09/18/2026 09/18/2016, 05/21/1996 Respiratory Syncytial Virus (RSV) Adult or (1 - 1-dose 75+ series) 09/17/2027 Shingles Vaccine (Zoster) Completed 09/04/2022, Procedures Procedure Name Priority Date/Time Associated Diagnosis [...] by Henry Bolivar MD Adalberto Painting MD IMG MRI ORDERABLES Final Result * POC-Creatinine (10/27/2024 9:50 AM EDT) POC-Creatinine 1.2 mg/dL 10/27/2024 9:51 AM EDT [facility] POC-EGFR >60 mL/min/1. 73M2 10/27/2024 9:51 AM EDT [facility] Comment:Proceed with contras t if eGFR > 45 ml/min/1.73 when performed on the NovaSTAT strip Creatinine meter. Senior Planner RICHAR TOVAR 10/27/2024 9:51 AM EDT [facility] Blood 10/27/2024 9:50 AM EDT 10/27/2024 9:51 AM EDT Narrative [facility] - 10/27/2024 9:51 AM EDT Senior Planner ID is - [id number] us Adalberto Painting MD POINT OF CARE TEST ORDERABLES Fi nal Result [facility] [address] [place] [address] from Last 3 Months Insurance MEDICARE PART A B Care Teams Terminologist Relationship Specialty Start Date End Date Martinez Canseco MD [address] [place] [address] PCP - General Family Medicine 10/05/22
--- OUTSIDE RECORDS SUMMARY | 2024-11-12 12:35 | XMS_ITS | Encounter Summary ---
Author Organization [employer] ([place], [place], [place], [place]) Address [address] [place] [address] Care Team Providers Care Roving Hand Name Role Phone Martinez Canseco MD Primary Care Provider [phone] Encounter Details Date Type Department Care Team (Late st Contact Info) Description 09/06/2018 Transcribed Document [facility] [place] [address] [place] [address] ProviderIvan MD [address] [place], [place] [address] Social History Tobacco Use Types Packs/Day Years [...] and emphysematous lungs; CAD (coronary artery disease), ione coronary artery Author: DIOMEDES KLEIN PA Basic [...] Non-distended, Normal bowel sounds. Integumentary: Warm, Dry, [place], Aquacel dressing is C/D/I. Psychiatric: Mood and affect: Calm. Review / Management Results review: SEP 05 03:55 139 109 14 / H 180 4.7 23 0.90 \ SEP 05 03:55 \ L 11.9 / H 15.5 177 / L 35.0 \. Radiology results Radiology Results (Last 48 hours) [id number] -- 09/02/2018 14:21 CR Chest 1 Vw [...] Pre-Op Diagnosis, Medical. CAD (coronary artery disease), ione coronary artery - Admitting, Medical. CAD (coronary artery disease), ione coronary artery - Discharge, Medical. documented in this encounter Plan of Treatment Not on file documented as of this encounter Visit Diagnoses Not on filedocumented in this encounter Care Teams Roving Hand Relationship Specialty Start Date End Date Martinez Canseco MD [address] [place] [address] PCP - General Family Medicine 10/05/22 documented as of this encounter
--- OUTSIDE RECORDS SUMMARY | 2024-11-12 12:35 | XMS_ITS | Encounter Summary ---
Author Organization [employer] ([place], [place], [place], [place]) Address [address] [place] [address] Care Team Providers Care Mandate Retail Service Merchandiser Name Role Phone Martinez Canseco MD Primary Care Provider [phone] Encounter Details Date Type Department Care Team (Late st Contact Info) Description 09/09/2018 Transcribed Document [facility] [place] [address] [place] [address] ProviderIvan MD [address] [place], [place] [address] Social History Tobacco Use Types Packs/Day Years [...] Bed scale Routine Weight Entry Format : [place] Routine Weight, Pounds : 219 lb Routine Weight, Ounces : 4 oz Routine Weight Calculation : 99.66 kg Height Source : Stated Height Entry Format : [place] Height, Feet : 6 ft Height, Inches : 1 Inch Clinical Height : 185.42 cm Body Surface Area (BSA), Routine : 2.24 m2 Body Mass Index (BMI), Routine : 28.99 kg/m2 Baline [facility] - 09/09/2018 4:21 EDT Electronically signed by [facility], [facility] Conversion Rd Scientist Cerner at 07/05/2022 8:40 PM CDT documented in this encounter Plan of Treatment Not on file documented as of this encounter Visit Diagnoses Not on filedocumented in this encounter Care Teams Mandate Retail Service Merchandiser Relationship Specialty Start Date End Date Martinez Canseco MD [address] [place] [address] PCP - General Family Medicine 10/05/22 documented as of this encounter
--- OUTSIDE RECORDS SUMMARY | 2024-11-12 12:35 | XMS_ITS | Encounter Summary ---
Author Organization [employer] ([place], [place], [place], [place]) Address [address] [place] [address] Care Team Providers Care Jack Winder Name Role Phone Martinez Canseco MD Primary Care Provider Encounter Details Date Type Department Care Team (Late st Contact Info) Description 09/06/[address] [facility] [place] [address] [place] [address] ProviderIvan MD [address] [place] [address] Social History Tobacco Use Types [...] Source : Stated Height Entry Format : [place] Height, Feet : 6 ft Height, Inches : 1 Inch Clinical Height : 185.42 cm Body Surface Area (BSA), Routine : 2.24 m2 Body Mass Index (BMI), Routine : 29.14 kg/m2 Meenakshi Gu RN - 09/06/2018 4:48 EDT documented in this encounter Plan of Treatment Not on file documented as of this encounter Visit Diagnoses Not on filedocumented in this encounter Care Teams Jack Winder Relationship Specialty Start Date End Date Martinez Canseco MD [address] [place] [address] PCP - General Family Medicine 10/05/22 documented as of this encounter
--- OUTSIDE RECORDS SUMMARY | 2024-11-12 12:35 | XMS_ITS | Encounter Summary ---
Author Organization [employer] ([place], [place], [place]) Address [address] [place] [address] Care Team Providers Care Spinning Lathe Operator Hydraulic Name Role Phone Martinez Canseco MD Primary Care Provider [phone] Encounter Details Date Type Department Care Team (Late st Contact Info) Description 09/06/2018 Transcribed Document [facility] Pulm & Critical Care Medicine [address] [place] [address] [address] [place] [address] [place] [address] [address] [place] [address] Social History Tobacco Use Types [...] to have MVCAD. He was transferred to [facility] for CTS evaluation. On 09/04, he underwent [...] At risk for sleep apnea / IMO [id number] / Confirmed Cardiomegaly / SNOMED CT 89434399 / Confirmed Steroid-dependent COPD / SNOMED CT 12460531 / Confirmed Pulmonary fibrosis / SNOMED CT 07139259 / Confirmed COPD, moderate / SNOMED CT 728731938 / Confirmed Pneumonia / SNOMED CT 713654586 / Confirmed Smoker / SNOMED CT 543527165 / Confirmed, Active Problems (13) At risk [...] 30.4 (CAYETANO 20) L 35.0 (CAYETANO 20) L 33.7 (CAYETANO 19) Plt L [...] 02) . Radiology Results (Last 48 hours) [id number] -- 09/02/2018 14:21 CR Chest 1 Vw [...] on filedocumented in this encounter Care Teams Spinning Lathe Operator Hydraulic Relationship Specialty Start Date End Date Martinez Canseco MD [address] [place] [address] PCP - General Family Medicine 10/05/22 documented as of this encounter
--- OUTSIDE RECORDS SUMMARY | 2024-11-12 12:35 | XMS_ITS | Encounter Summary ---
Author Organization [employer] ([place], [place], [place]) Address [address] [place] [address] Care Team Providers Care Pediatric Speech Language Pathologist Name Role Phone Martinez Canseco MD Primary Care Provider [phone] Encounter Details Date Type Department Care Team (Late st Contact Info) Description 09/11/2018 Transcribed Document [facility] [place] [address] [place] [address] ProviderIvan MD [address] [place] [address] Social History Tobacco Use Types [...] Ivan ProviderMD - 09/11/2018 8:29 AM CDT [facility] Endo PACU Summary Primary Physician: ARLETTE DE JESUS MD Finalized Date/Time: 09/11/18 09:25:20 Pt. Name: AUGUSTO PACHECO/Sex: 1950 Male Med Rec #: [id number] Physician: ESVIN BUTTS MD-CAT Financial #: [id number] Pt. Type: I Room/Bed: [facility]/1 Admit/Disch: 09/02/18 14:21:00 - Institution: [facility] Endo PACU Case Times Entry 1 In PACU I 09/11/18 08:45:00 Ready for PACU 09/11/18 09:25:00 Discharge Discharge from PACU 09/11/18 09:25:00 I Last Modified By: Zahar Bedoya Rn 09/11/18 09:25:17 Finalized By: Zahra Bedoya, Rn Document Signatures Signed By: Zahra Bedoya Rn 09/11/18 09:25 Electronically signed by Destiny [facility] Conversion Filter Assembler Cerner at 07/05/2022 8:32 PM CDT documented in this encounter Plan of Treatment Not on file documented as of this encounter Visit Diagnoses Not on filedocumented in this encounter Care Teams Pediatric Speech Language Pathologist Relationship Specialty Start Date End Date Martinez Canseco MD [address] [place] [address] PCP - General Family Medicine 10/05/22 documented as of this encounter
--- OUTSIDE RECORDS SUMMARY | 2024-11-12 12:35 | XMS_ITS | Encounter Summary ---
Author Organization [employer] ([place], [place], [place], [place]) Address [address] [place] [address] Care Team Providers Care Wireless Internet Installer Name Role Phone Martinez Canseco MD Primary Care Provider [phone] Encounter Details Date Type Department Care Team (Late st Contact Info) Description 09/10/2018 Transcribed Document [facility] [place] [address] [place] [address] ProviderIvan MD [address], [place] [address] Social History Tobacco Use Types Packs/Day Years [...] On: 09/10/2018 10:08 EDT by MAGDALENO LOYA RN-Urban PlannerInternational Flight Attendant Progress Note Discharge Arrangements : Patient Post-Acute Information Patient Name: AUGUSTO PACHECO Gender: Male : 54 Age: 67 Years Curaspan Referral(s): Service: Organization: Business Address: Phone Number: Acute Rehab [facility] [place] [address], [place], [address] Discharge Options Discussed with Patient : DME, Home Health, Short term rehabilitation Barriers to Discharge Identified : Clinical Condition of Patient Designation of Choice Signed : Yes Patient Offered Choice/Affiliations Explained : Yes Does the Patient have a Floor to SNF Benefit? : Yes Discharge Plan Comment : D/C to [facility]/Rehab 09/11 Bro will transpt MAGDALENO LOYA RN-Urban Planner - 09/10/2018 10:08 EDT Narrative Progress Note Narrative Progress Note : CM Spoke w/Zahra @ [facility] re: D/C and Diet needs - pt is on Cardiac Diet and Nutritional note was fax'd to her. CM met w/helena @ [facility]. pt is agreeable w/D/C to [facility] and signed IM and choice form - placed on chart. - poss D/C 09/11, Dago will transpt. MAGDALENO LOYA RN-Urban Planner - 09/10/2018 10:08 EDT Electronically signed by Destiny [facility] Conversion Blow Down Operator Cerner at 07/05/2022 8:47 PM CDT documented in this encounter Plan of Treatment Not on file documented as of this encounter Visit Diagnoses Not on filedocumented in this encounter Care Teams Wireless Internet Installer Relationship Specialty Start Date End Date Martinez Canseco MD [address] [place] [address] PCP - General Family Medicine 10/05/22 documented as of this encounter
--- OUTSIDE RECORDS SUMMARY | 2024-11-12 12:35 | XMS_ITS | Encounter Summary ---
Author Organization [employer] ([place], [place], [place], [place]) Address [address] [place] [address] Care Team Providers Care Bacteriologist Food Name Role Phone Martinez Canseco MD Primary Care Provider [phone] Encounter Details Date Type Department Care Team (Late st Contact Info) Description 09/06/2018 Transcribed Document [facility] [place] [address] [place] [address] ProviderIvan MD [address] [place], [place] [address] Social History Tobacco Use Types Packs/Day Years [...] 09/06/2018 4:48 EDT Electronically signed by Destiny [facility] Conversion Nutrition Technician Cerner at 07/05/2022 8:45 PM CDT documented in this encounter Plan of Treatment Not on file documented as of this encounter Visit Diagnoses Not on filedocumented in this encounter Care Teams Bacteriologist Food Relationship Specialty Start Date End Date Martinez Canseco MD [address] [place] [address] PCP - General Family Medicine 10/05/22 documented as of this encounter
--- OUTSIDE RECORDS SUMMARY | 2024-11-12 12:36 | XMS_ITS | Encounter Summary ---
Author Organization [employer] ([place], [place], [place], [place]) Address [address] [place] [address] Care Team Providers Care Coding Coordinator Name Role Phone Martinez Canseco MD Primary Care Provider [phone] Encounter Details Date Type Department Care Team (Late st Contact Info) Description 09/09/2018 Transcribed Document [facility] [place] Family Medicine [address] [place] [address] ProviderIvan MD [address] [place], [place] [address] Social History Tobacco Use Types Packs/Day Years [...] ZUNIGA RD, LD - 09/09/2018 15:57 EDT Electronically signed by Destiny [facility] Conversion Environmental Property Assessor Cerner at 07/05/2022 8:36 PM CDT documented in this encounter Plan of Treatment Not on file documented as of this encounter Visit Diagnoses Not on filedocumented in this encounter Care Teams Coding Coordinator Relationship Specialty Start Date End Date Martinez Canseco MD [address] [place] [address] PCP - General Family Medicine 10/05/22 documented as of this encounter
--- OUTSIDE RECORDS SUMMARY | 2024-11-12 12:36 | XMS_ITS | Encounter Summary ---
Author Organization [employer] ([place], [place], [place], [place]) Address [address] [place] [address] Care Team Providers Care Principal Associate Name Role Phone Martinez Canseco MD Primary Care Provider [phone] Encounter Details Date Type Department Care Team (Late st Contact Info) Description 09/09/2018 Transcribed Document [facility] [place] [address] [place] [address] ProviderIvan MD [address] [place], [place] [address] Social History Tobacco Use Types Packs/Day Years [...] Yes All Active Orders Reviewed : Yes Nohmey Giraldo, Rn - 09/09/2018 18:46 EDT Electronically signed by Destiny [facility] Conversion Ui Developer Designer Cerner at 07/05/2022 8:48 PM CDT documented in this encounter Plan of Treatment Not on file documented as of this encounter Visit Diagnoses Not on filedocumented in this encounter Care Teams Principal Associate Relationship Specialty Start Date End Date Martinez Canseco MD [address] [place] [address] PCP - General Family Medicine 10/05/22 documented as of this encounter
--- OUTSIDE RECORDS SUMMARY | 2024-11-12 12:36 | XMS_ITS | Encounter Summary ---
Author Organization [employer] ([place], [place], [place], [place]) Address [address] [place] [address] Care Team Providers Care Rib Builder Name Role Phone Martinez Canseco MD Primary Care Provider [phone] Encounter Details Date Type Department Care Team (Late st Contact Info) Description 09/10/2018 Transcribed Document [facility] [place] [address] [place] [address] ProviderIvan MD [address] [place], [place] [address] Social History Tobacco Use Types Packs/Day Years [...] and emphysematous lungs; CAD (coronary artery disease), [place] coronary artery Author: LEANDER WHEELER PA Basic [...] today. 08/08: POD # 4, Transfer to [facility] 09/09: POD # 5, nausea improved [...] 8:11 EDT Heart Rate Monitored 104 bpm [place] 09/10/2018 7:43 EDT Systolic Blood Pressure 117 mmHg Diastolic Blood Pressure 77 mmHg General: Alert and oriented, No acute distress. Respiratory: Lungs are clear to auscultation, Respirations are non-labored, Breath sounds are equal. Cardiovascular: 112 beats per minute, Regular rhythm, S1, S2, Tachycardia, No edema. Gastrointestinal: Soft, Non-tender, Non-distended, Normal bowel sounds. Integumentary: Warm, Dry, [place], Aquacel dressing is C/D/I. Neurologic: Alert, Oriented, No focal deficits. Psychiatric: Mood and affect: Calm. Review / Management Results review: SEP 10 03:31 145 106 H 43 / H 109 3.8 H 35 1.10 \ SEP 10 03:31 \ L 10.0 / 8.6 282 / L 30.1 \. Radiology results Radiology Results (Last 48 hours) [id number] -- 09/02/2018 14:21 CR Chest 1 Vw [...] Pre-Op Diagnosis, Medical. CAD (coronary artery disease), [place] coronary artery - Admitting, Medical. CAD (coronary artery disease), [place] coronary artery - Discharge, Medical. documented in this encounter Plan of Treatment Not on file documented as of this encounter Visit Diagnoses Not on filedocumented in this encounter Care Teams Rib Builder Relationship Specialty Start Date End Date Martinez Canseco MD [address] [place] [address] PCP - General Family Medicine 10/05/22 documented as of this encounter
--- OUTSIDE RECORDS SUMMARY | 2024-11-12 12:36 | XMS_ITS | Encounter Summary ---
Author Organization [employer] ([place], [place], [place], [place]) Address [address] [place] [address] Care Team Providers Care Powerhouse Mechanic Helper Name Role Phone Martinez Canseco MD Primary Care Provider [phone] Encounter Details Date Type Department Care Team (Late st Contact Info) Description 09/09/2018 Transcribed Document [facility] Family Medicine [address] [place] [address] ProviderIvan MD [address] [place] [address] Social History Tobacco Use Types Packs/Day Years [...] Ivan ProviderMD - 09/09/2018 2:00 AM CDT Video Production Assistant Details Entered On: 09/09/2018 4:56 EDT Performed [...] on filedocumented in this encounter Care Teams Powerhouse Mechanic Helper Relationship Specialty Start Date End Date Martinez Canseco MD [address] [place] [address] PCP - General Family Medicine 10/05/22 documented as of this encounter
--- OUTSIDE RECORDS SUMMARY | 2024-11-12 12:36 | XMS_ITS | Encounter Summary ---
Author Organization [employer] ([place], [place], [place], [place]) Address [address] [place] [address] Care Team Providers Care Battery Test Engineer Name Role Phone Martinez Canseco MD Primary Care Provider [phone] Encounter Details Date Type Department Care Team (Late st Contact Info) Description 09/09/2018 Transcribed Document [facility] [place] [address] [place] [address] ProviderIvan MD [address], [place] [address] Social History Tobacco Use Types Packs/Day Years [...] On: 09/09/2018 15:53 EDT by BIRGIT IQBAL Bearing Machine Operator Care Management Progress Note Discharge Arrangements : [...] Meeting Medical Necessity : Yes BIRGIT IQBAL Bearing Machine Operator - 09/09/2018 15:53 EDT Narrative Progress Note Narrative Progress Note : Continue to follow for discharge needs and arrangements, chart reviewed, tranfer from [facility]U, day 7, currently on 4 liters O2, BUN/Crea=34/1.2, Ca=10.2, CXR=IMPRESSION: Removal of support devices without evidence of pneumothorax or progression of lung disease; PT/OT following, met with patient and daughterOlga ([phone]) to discuss disposition needs/arrangements, all agree that rehab is best option; clinical information forwarded to [facility], via [employer] for review and possible admission. CM will continue to follow. BIRGIT IQBAL Social Worker - 09/09/2018 15:53 EDT documented in this encounter Plan of Treatment Not on file documented as of this encounter Visit Diagnoses Not on filedocumented in this encounter Care Teams Battery Test Engineer Relationship Specialty Start Date End Date Martinez Canseco MD [address] [place] [address] PCP - General Family Medicine 10/05/22 documented as of this encounter
--- OUTSIDE RECORDS SUMMARY | 2024-11-12 12:36 | XMS_ITS | Encounter Summary ---
Author Organization [employer] ([place], [place], [place], [place]) Address [address] [place] [address] Care Team Providers Care Driver Merchandiser Name Role Phone Martinez Canseco MD Primary Care Provider [phone] Encounter Details Date Type Department Care Team (Late st Contact Info) Description 09/09/2018 Transcribed Document [facility] [place] Medicine [address] [place] [address] ProviderIvan MD [address] [place], [place] [address] Social History Tobacco Use Types Packs/Day Years [...] 09/09/2018 4:59 EDT Electronically signed by Destiny [facility] Conversion Plumbing Drafter Cerner at 07/05/2022 8:52 PM CDT documented in this encounter Plan of Treatment Not on file documented as of this encounter Visit Diagnoses Not on filedocumented in this encounter Care Teams Driver Merchandiser Relationship Specialty Start Date End Date Martinez Canseco MD [address] [place] [address] PCP - General Family Medicine 10/05/22 documented as of this encounter
--- OUTSIDE RECORDS SUMMARY | 2024-11-12 12:36 | XMS_ITS | Encounter Summary ---
Author Organization [employer] ([place], [place], [place], [place]) Address [address] [place] [address] Care Team Providers Care Rn Care Transition Name Role Phone Martinez Canseco MD Primary Care Provider [phone] Encounter Details Date Type Department Care Team (Late st Contact Info) Description 09/10/2018 Transcribed Document [facility] [place] [address] [place] [address] ProviderIvan MD [address] [place], [place] [address] Social History Tobacco Use Types Packs/Day Years [...] On: 09/10/2018 15:36 EDT by MAGDALENO LOYA RN-Classroom Assistant Final Discharge Planning Discharge Arrangements : Patient Post-Acute Information Patient Name: AUGUSTO PACHECO Gender: Male : 54 Age: 67 Years Curaspan Referral(s): Service: Organization: Business Address: [facility] [address], [place], [address] Important Medicare Message Reviewed With : Patient Important Medicare Message Reviewed D/T : 09/10/2018 10:00 EDT Transportation Needs : Family/Friend Discharge Transportation Arrangement Cmt : Dago will transpt to facility Patient/Family Notified of Plan : Yes Patient/Family Notified : MAGDALENO Dilsa, RN-Classroom Assistant - 09/10/2018 15:36 EDT Final Narrative Note Final Narrative Note : Rehabilitation: [facility] call Elyssa [phone] and [phone] office Nurse can Call report to [phone] Discharge Summary: fax to [phone] Transportation: Brother will transpt MAGDALENO LOYA RN-Classroom Assistant - 09/10/2018 15:36 EDT Electronically signed by Destiny [facility] Conversion Public Message Service Supervisor Cerner at 07/05/2022 8:36 PM CDT documented in this encounter Plan of Treatment Not on file documented as of this encounter Visit Diagnoses Not on filedocumented in this encounter Care Teams Rn Care Transition Relationship Specialty Start Date End Date Martinez Canseco MD [address] [place] [address] PCP - General Family Medicine 10/05/22 documented as of this encounter
--- OUTSIDE RECORDS SUMMARY | 2024-11-12 12:36 | XMS_ITS | Encounter Summary ---
Author Organization [employer] ([place], [place], [place], [place]) Address [address] [place] [address] Care Team Providers Care Deployment Manager Name Role Phone Martinez Canseco MD Primary Care Provider [phone] Encounter Details Date Type Department Care Team (Late st Contact Info) Description 09/09/2018 Transcribed Document [facility] [place] [address] [place] [address] ProviderIvan MD [address] [place], [place] [address] Social History Tobacco Use Types Packs/Day Years [...] and emphysematous lungs; CAD (coronary artery disease), [place] coronary artery Author: LEANDER WHEELER PA Basic [...] 08/08: POD # 4, Transfer [facility] 09/09: POD # 5, nausea improved today, [...] Non-distended, Normal bowel sounds. Integumentary: Warm, Dry, [place], Aquacel dressing is C/D/I. Neurologic: Alert, Oriented, No focal deficits. Psychiatric: Mood and affect: Calm. Review / Management Results review: SEP 09 03:06 142 106 H 34 / H 140 3.7 31 1.20 \ SEP 09 03:06 \ L 10.8 / 9.1 282 / L 32.7 \. Radiology results Radiology Results (Last 48 hours) [id number] -- 09/02/2018 14:21 CR Chest 1 Vw [...] Pre-Op Diagnosis, Medical. CAD (coronary artery disease), [place] coronary artery - Admitting, Medical. CAD (coronary artery disease), [place] coronary artery - Discharge, Medical. documented in this encounter Plan of Treatment Not on file documented as of this encounter Visit Diagnoses Not on filedocumented in this encounter Care Teams Deployment Manager Relationship Specialty Start Date End Date Martinez Canseco MD [address] [place] [address] PCP - General Family Medicine 10/05/22 documented as of this encounter
--- OUTSIDE RECORDS SUMMARY | 2024-11-12 12:36 | XMS_ITS | Clinical Summary ---
Author Organization [facility] Address [address] [place] [address] Phone Care Team Providers Care Pacu Rn Name Role Phone Apolinar Aldana MD Primary Care Provider [phone] Allergies No known active allergies Medications atorvastatin (LIPITOR) 20 mg Oral TabletIndication s:Coronary artery disease involving coronary bypass graft of penobscot heart without angina pectoris Take 1 Tab by mouth nightly. 30 Tab 09/19/2018 Active aspirin 81 mg Oral Tablet, Chewable Take by mouth daily. Active amLODIPine (NORVASC) 5 mg Oral Tablet Take 1 Tablet by mouth daily. 30 Tablet 2 07/26/2022 Active carvediloL (COREG) 25 mg Oral Tablet Take 25 mg by mouth 2 times daily (with meals). Active fUROsemide (LASIX) 40 mg Oral Tablet Take 40 mg by mouth as needed. Active Active Problems Problem Noted Date Diagnosed Date Centrilobular emphysema 10/28/2024 Assessment & Plan (10/28/2024 1:48 PM EDT): Discussed. Severe sepsis with septic shock (CODE) Septic shock 07/16/2022 LIZZETTE (acute kidney injury) 07/16/2022 ABLA (acute blood loss anemia) 07/16/2022 Meningioma 07/16/2022 Overview (07/16/2022): Seen on CT 06/19/2022 Assessment & Plan (10/28/2024 1:48 PM EDT): No signs/symptoms of recurrence Coronary artery disease invo lving coronary bypass graft of pen[place]ot heart without angina pectoris 07/13/2022 Assessment & Plan (07/13/2022 10:06 AM EDT): Noted from previous history. No acute complaints today. Essential hypertension 07/13/2022 CKD (chronic kidney disease) stage 3, GFR 30-59 ml/min 07/13/2022 Overview (07/13/2022): Facilities Painter - Dr. Augusto Frederick [phone] Assessment & Plan (10/28/2024 1:48 PM EDT): Preventing CKD Progression: 1.Tight control of BP, BS, Lipids, passive smoking etc 2.Avoid any NSAIDs 3.Avoid IV contrast (Oral contrast OK). 4.Careful selection of Abx, dose for current GFR. 5.DASH diet, along with limiting the protein intake. Recommended protein intake no more than 1 gm/kg/day. Na =2 gm per day. Limit Phosphorus and Purines in diet too. Assessment & Plan (07/13/2022 10:03 AM EDT): Recent LIZZETTE Last cr 1.31 (peaked at 4 +) Unclear cause. Possibly had partially treated UTI at the time. Mixed hyperlipidemia 06/20/2022 Obesity (BMI 30.0-34.9) 06/20/2022 Encounters Date Type Department Care Team Description 10/28/2024 1:40 PM EDT Office Visit [facility] [address] [place] [address] Apolinar Aldana MD Annual physical exam (Primary Dx); Centrilobular emphysema (HCC); Meningioma (HCC); Stage 3a chronic kidney disease (HCC) from Last 3 Months Immunizations Immunization Administration Dates Next Due Influenza High Dose 12/29/2021,02/17/2020 Influenza Vaccine Quadrivalent PF 01/06/2021 Pneumococcal Polysaccharide 23 Valent 02/17/2020 Td (Adult), Absorbed 05/21/1996 Tdap 09/18/2016 Zoster Recombinant 09/04/2022,04/07/2022 Surgical History Surgery Date Site/Laterality Comments COLON SURGERY Part of colon removed ANGIOPLASTY 09/02/2018 Medical History Medical History Date Comments Hypertension Chronic kidney disease COPD (chronic obstructive pulmonary disease) (HC C) CHF (congestive heart failure) (HCC) Family History Medical History Relation Name Comments Kidney Disease Brother maia High Blood Pressure Father leida High Blood Pressure Mother bruno Relation Name Status Comments Brother maia Alive Father leida Alive Mother bruno Alive Social History Tobacco Use Types Packs/Day Years [...] Mass Index 33.51 10/28/2024 1:19 PM EDT Plan of Treatment Health Maintenance Due Date Last Done Comments Hepatitis C Screening 1970 Colonoscopy 1997 FIT 1997 Sigmoidoscopy 1997 Virtual Colonography 1997 RSV or 60+ (1 - Risk 60-74 years 1-dose series) 2012 AAA Screening 2017 Pneumococcal Vaccine 50+ (2 of 2 - PCV) 02/16/2021 02/17/2020 COVID-19 Vaccine ( season) 2024 11/23/2023, 01/10/2023, 04/07/2022, Additional history exists Influenza Vaccine (#1) 2024 , 01/10/2023, 12/29/2021, Additional history exists Cologuard 09/27/2025 09/27/2022, 09/27/2022 Colon Cancer Screening 09/27/2025 Wellness Exam Medicare 10/29/2025 10/28/2024 DTaP/TDaP/Td (2 - Td or Tdap) 09/18/2026 [...] Comments SCANNED LABS 11/05/2024 12:06 PM EDT COLOGUARD Routine 09/27/2022 2:15 PM EDT Screening for colon cancer from Last 3 Months or Most Recently Relevant to Health Maintenance Results * SCANNED LABS (11/05/2024 12:06 PM EDT) 11/05/2024 12:0 6 PM EDT us Unknown Provider HEMATOLOGY ORDERABLES Final Res ult * COLOGUARD (09/27/2022 2:15 PM EDT) COLOGUARD [...] (Bakari Luna al, N Engl J Med 2014;370(14):8732-2882) The normal value (reference range) for this assay is negative. COLOGUARD RE-SCREENING RECOMMENDATION: Periodic colorectal cancer screening is an important part of preventive healthcare for asymptomatic individuals at average risk for colorectal cancer. Following a negative Cologuard result, the Citizen [place] Cancer Society and U.S. Multi-Society Task Force screening guidelines recommend a Cologuard re-screening interval of 3 years. References: [place] Cancer Society Guideline for Colorectal Cancer Screening: https://www.cancer.org/cancer/zpdda-fbsadu-tgbryn/bsubiyvka-ofmvdprmh-vdldhex/ac s-rec ommendations.html.; Nelson DK, Whitley MONTILLA, Hermelindo MarrK, Colorectal Cancer Screening: Recommendations for Physicians and Patients from the U.S. Multi-Society Task Force on Colorectal Cancer Screening , Am J Gastroenterology 2017; 112:3689-2920. TEST DESCRIPTION: Composite algorithmic analysis of stool [...] (Bakari Luna al, N Engl J Med 2014;370(14):3062-7174.) Cologuard may produce a false negative or false positive result (no colorectal cancer or precancerous polyp present at colonoscopy follow up). A negative Cologuard test result does not guarantee the absence of CRC or advanced adenoma (pre-cancer). The current Cologuard screening interval is every 3 years. (Citizen [place] Cancer Society and U.S. Multi-Society Task Force). Cologuard performance data in a 10,000 patient pivotal study using colonoscopy as the reference method can be accessed at the following location: www.[employer]/results. Additional description of the Cologuard test process, warnings and precautions can be found at www.cologuard.com. 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 07/16/2022 Insurance MEDICARE [place] PART A AND B [facility], [facility] MEDICARE [place] MEDICARE [place] PART A AND B [facility], [facility] Advance Directives For more information, please contact: [phone] * Full Code (Latest Code Status on File) Date Activated Date Inactivated Comments 07/19/2022 3:28 PM 07/25/2022 9:44 PM * Full Code Date Activated Date Inactivated Comments 07/16/2022 10:34 PM 07/17/2022 9:07 PM Care Teams Pacu Rn Relationship Specialty Start Date End Date Apolinar Aldana MD [address] [place] [address] PCP - General Internal Medicine 07/13/22
== END 2024-11-10 23:59 | disposition home or self-care (01) ==
LOC: LAB.DROPOF 11-12 12:31
PROVIDERS: PCP Nurse Practitioner; Visit Provider Nurse Practitioner
DX: I13.0 Hypertensive heart and chronic kidney disease with heart failure and stage 1 through stage 4 chronic kidney disease, or unspecified chronic kidney disease (principal); N18.9 Chronic kidney disease, unspecified; I50.9 Heart failure, unspecified
CPT/HCPCS: 80048

== ENCOUNTER 2024-12-30 10:20 | Outpatient (CLI) | payer MEDICARE, OTHER, SELFPAY ==
[2024-12-30 15:31] LABS: Chloride 107 mmol/L (98-107)
[2024-12-30 15:32] LABS: Potassium 4.2 mmoL/L (3.5-5.1); Sodium 145 mmol/L (136-145)
[2024-12-30 15:34] LABS: Blood Urea Nitrogen 21 mg/dl (9-20); Creatinine,Serum 1.40 mg/dl (0.66-1.25); Estimated Glomerular Filt Rate 50 ml/min (>60); GFR (African American) 60 ML/MIN (>60)
[2024-12-30 15:35] LABS: Anion Gap 9.2 mEq/L (5-15); Calcium 9.5 mg/dl (8.4-10.2); Carbon Dioxide 33 mmol/L (22.0-30.0); Glucose 101 mg/dl (74-100)
--- OUTSIDE RECORDS SUMMARY | 2025-01-01 08:58 | XMS_ITS | Encounter Summary ---
Author Organization [employer] ([place], [place], [place], [place]) Address [address] [place] [address] Care Team Providers Care Immigration Services Officer Name Role Phone Martinez Canseco MD Primary Care Provider [phone] Encounter Details Date Type Department Care Team (Late st Contact Info) Description 09/03/2018 Transcribed Document [facility] [place] Family Medicine [address] [place] [address] ProviderIvan MD [address] [place] [address] Social History Tobacco Use Types Packs/Day Years [...] Ministry Provided to : Patient, Family/Significant other Protestant Preference : Samaritan, Geovanni Spiritual Leader Requested : Yes Protestant Ritual/Sacrament Needed : Yes Samaritan Sacrament of the Sick/Anointing Needed : Yes FRIEDA PIZANO - 09/04/2018 12:20 EDT Spiritual Assessment Spiritual Assessment Comment/Summary Points : Pre-surgery visit. Daughter and brother present. Provided spiritual support. Contacted Kristy Lira for financial systems analyst at patient's request for confession and anointing. Spirital Assessment Comment/Summary Report : SPIRITUAL ASSESSMENT COMMENT/SUMMARY Spiritual Assessment Comment/Summary 09/02/18 15:03:00 Augusto welcomed visit from a veterinary manager, though he was soemwhat reluctant to talk about anything spiritual. His brother, Elpidio, is bedside providing excellent support. Elpidio [facility] Augusto's daughter plans to come tonight and stay with him in the room. Augusto is a practical person, with a dry wit humor. He seems to want to keep things a bit light hearted. Excellent conversation. Signed By: TL PETIT, FRIEDA Villanueva P - 09/04/2018 12:20 EDT Interventions Emotional Support : Empathic/Engaged listening, Family/Significant other supported Spiritual and Protestant : Verify apurva group connection, activities leader/community contacted, Spiritual/Protestant support provided FRIEDA PIZANO P - 09/04/2018 12:20 EDT documented in this encounter Plan of Treatment Not on file documented as of this encounter Visit Diagnoses Not on filedocumented in this encounter Care Teams Immigration Services Officer Relationship Specialty Start Date End Date Martinez Canseco MD [address] [place] [address] PCP - General Family Medicine 10/05/22 documented as of this encounter
--- OUTSIDE RECORDS SUMMARY | 2025-01-01 08:58 | XMS_ITS | Encounter Summary ---
Author Organization [employer] ([place], [place], [place], [place]) Address [address] [place] [address] Care Team Providers Care Events Assistant Name Role Phone Martinez Canseco MD Primary Care Provider [phone] Encounter Details Date Type Department Care Team (Late st Contact Info) Description 09/03/2018 Transcribed Document [facility] [place] Family Medicine [address] [place] [address] ProviderIvan MD [address] [place] [address] Social History Tobacco Use Types Packs/Day Years [...] Spiritual Care Spiritual Care Referred by : Bet Taker initiated Reason for Visit : Initial Ministry Provided to : Patient Intervention/Comment/Summary Points : Initial Spiritual Care visit by Nighat coello. Hoahaoism Preference : No listed preference FRIEDA PIZANO - 09/03/2018 14:03 EDT documented in this encounter Plan of Treatment Not on file documented as of this encounter Visit Diagnoses Not on filedocumented in this encounter Care Teams Events Assistant Relationship Specialty Start Date End Date Martinez Canseco MD [address] [place] [address] PCP - General Family Medicine 10/05/22 documented as of this encounter
--- OUTSIDE RECORDS SUMMARY | 2025-01-01 08:58 | XMS_ITS | Encounter Summary ---
Author Organization [employer] ([place], [place], [place], [place]) Address [address] [place] [address] Care Team Providers Care Senior Net Architect Name Role Phone Martinez Canseco MD Primary Care Provider [phone] Encounter Details Date Type Department Care Team (Late st Contact Info) Description 09/03/2018 Transcribed Document [facility] Pulm & Critical Care Medicine [address] [place] [address] [address] Leeroy Garvey MD [address] [facility] [address] [place] [address] Social History Tobacco Use Types [...] filedocumented in this encounter Care Teams Senior Net Architect Relationship Specialty Start Date End Date Martinez Canseco MD [address] [place] [address] PCP - General Family Medicine 10/05/22 documented as of this encounter
--- OUTSIDE RECORDS SUMMARY | 2025-01-01 08:58 | XMS_ITS | Encounter Summary ---
Author Organization [employer] ([place], [place], [place], [place]) Address [address] [place] [address] Care Team Providers Care Die Inspector Name Role Phone Martinez Canseco MD Primary Care Provider [phone] Encounter Details Date Type Department Care Team (Late st Contact Info) Description 09/03/2018 Transcribed Document [facility] [place] Family Medicine [address] [place] [address] ProviderIvan MD [address] [place] [address] Social History Tobacco Use Types Packs/Day Years [...] on filedocumented in this encounter Care Teams Die Inspector Relationship Specialty Start Date End Date Martinez Canseco MD [address] [place] [address] PCP - General Family Medicine 10/05/22 documented as of this encounter
--- OUTSIDE RECORDS SUMMARY | 2025-01-01 08:58 | XMS_ITS | Encounter Summary ---
Author Organization [employer] ([place], [place], [place], [place]) Address [address] [place] [address] Care Team Providers Care Straight Line Press Setter Name Role Phone Martinez Canseco MD Primary Care Provider [phone] Encounter Details Date Type Department Care Team (Late st Contact Info) Description 09/03/2018 Transcribed Document [facility] [place] [address] [place] [address] ProviderIvan MD [address] [place], [place] [address] Social History Tobacco Use Types Packs/Day Years [...] 09/03/2018 16:00 EDT Electronically signed by Destiny [facility] Conversion Shower Screen Installer Cerner at 07/05/2022 8:44 PM CDT documented in this encounter Plan of Treatment Not on file documented as of this encounter Visit Diagnoses Not on filedocumented in this encounter Care Teams Straight Line Press Setter Relationship Specialty Start Date End Date Martinez Canseco MD [address] [place] [address] PCP - General Family Medicine 10/05/22 documented as of this encounter
--- OUTSIDE RECORDS SUMMARY | 2025-01-01 08:58 | XMS_ITS | Encounter Summary ---
Author Organization [employer] ([place], [place], [place]) Address [address] [place] [address] Care Team Providers Care Customizer Name Role Phone Martinez Canseco MD Primary Care Provider [phone] Encounter Details Date Type Department Care Team (Late st Contact Info) Description 09/04/2018 Transcribed Document [facility] [place] Family Medicine [address] [place] [address] ProviderIvan MD [address] [place] [address] Social History Tobacco Use Types [...] CC1: Denzel Anguiano M.D. Electronically signed by [facility], [facility] Conversion Automotive Parts Specialist Cerner at 07/05/2022 8:29 PM CDT documented in this encounter Plan of Treatment Not on file documented as of this encounter Visit Diagnoses Not on filedocumented in this encounter Care Teams Customizer Relationship Specialty Start Date End Date Martinez Canseco MD [address] [place] [address] PCP - General Family Medicine 10/05/22 documented as of this encounter
--- OUTSIDE RECORDS SUMMARY | 2025-01-01 08:59 | XMS_ITS | Encounter Summary ---
Author Organization [employer] ([place], [place], [place], [place]) Address [address] [place] [address] Care Team Providers Care Automation Engineering Manager Name Role Phone Martinez Canseco MD Primary Care Provider [phone] Encounter Details Date Type Department Care Team (Late st Contact Info) Description 09/04/2018 Transcribed Document [facility] [place] Family Medicine [address] [place] [address] ProviderIvan MD [address] [place] [address] Social History Tobacco Use Types Packs/Day Years [...] ~20-25 kcal/kg adj weight, 1.2 gm prokg): 5604-3645 kcal; 120+ gm pro [address], [...] on filedocumented in this encounter Care Teams Automation Engineering Manager Relationship Specialty Start Date End Date Martinez Canseco MD [address] [place] [address] PCP - General Family Medicine 10/05/22 documented as of this encounter
--- OUTSIDE RECORDS SUMMARY | 2025-01-01 08:59 | XMS_ITS | Encounter Summary ---
Author Organization [employer] ([place], [place], [place], [place]) Address [address] [place] [address] Care Team Providers Care Loader Operator Name Role Phone Martinez Canseco MD Primary Care Provider [phone] Encounter Details Date Type Department Care Team (Late st Contact Info) Description 09/11/2018 Transcribed Document [facility] [place] Family Medicine [address] [place] [address] ProviderIvan MD [address] [place] [address] Social History Tobacco Use Types [...] on filedocumented in this encounter Care Teams Loader Operator Relationship Specialty Start Date End Date Martinez Canseco MD [address] [place] [address] PCP - General Family Medicine 10/05/22 documented as of this encounter
--- OUTSIDE RECORDS SUMMARY | 2025-01-01 08:59 | XMS_ITS | Encounter Summary ---
Author Organization [email or web address] ([place], [place], [place], [place]) Address [address] [place] [address] Care Team Providers Care Concession Manager Name Role Phone Martinez Canseco MD Primary Care Provider [phone] Encounter Details Date Type Department Care Team (Late st Contact Info) Description 09/05/2018 Transcribed Document [facility] Pulm & Critical Care Medicine [address] [place] [address] [address] [place] [address] [place] [address] [address] [place] [address] Social History Tobacco Use Types [...] to have MVCAD. He was transferred to [facility] for CTS evaluation. 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 Radiology Results (Last 48 hours) [id number] -- 09/02/2018 14:21 CR Chest 1 Vw [...] on filedocumented in this encounter Care Teams Concession Manager Relationship Specialty Start Date End Date Martinez Canseco MD [address] [place] [address] PCP - General Family Medicine 10/05/22 documented as of this encounter
--- OUTSIDE RECORDS SUMMARY | 2025-01-01 08:59 | XMS_ITS | Encounter Summary ---
Author Organization [employer] ([place], [place], [place], [place]) Address [address] [place] [address] Care Team Providers Care Public Health Clinical Nurse Specialist Name Role Phone Martinez Canseco MD Primary Care Provider [phone] Encounter Details Date Type Department Care Team (Late st Contact Info) Description 09/04/2018 Transcribed Document [facility] [place] [address] [place] [address] ProviderIvan MD [address], [place] [address] Social History Tobacco Use Types Packs/Day Years [...] : 09/05/2018 00:00 Atherosclerotic heart disease of tribe coronary artery without angina pectoris 09/05/2018 [...] ROM : WFL Right LE Strength : [facility] LLE Active ROM : WF [...] LESLYE BRASHER, PT - 09/07/2018 13:20 EDT Jail Goals Mobility/Bed Mobility LTG PT Grid Goal [...] filedocumented in this encounter Care Teams Public Health Clinical Nurse Specialist Relationship Specialty Start Date End Date Martinez Canseco MD [address] [place] [address] PCP - General Family Medicine 10/05/22 documented as of this encounter
--- OUTSIDE RECORDS SUMMARY | 2025-01-01 08:59 | XMS_ITS | Encounter Summary ---
Author Organization [employer] ([place], [place], [place], [place]) Address [address] [place] [address] Care Team Providers Care Chief Ultrasound Technologist Name Role Phone Martinez Canseco MD Primary Care Provider [phone] Encounter Details Date Type Department Care Team (Late st Contact Info) Description 09/11/2018 Transcribed Document [facility] [place] [address] [place] [address] ProviderIvan MD [address] [place] [address] Social History Tobacco Use Types [...] On: 09/11/2018 11:03 EDT by Peggy Montez Remedial Project Manager Attempt to Treat Unable to Treat Due To : Patient on hold Inability to Treat Comment : nsg held pt due to needing to stay on Bipap and rest to bring O2 sats up, will try back as time permits Notification : Peggy Alvarez Remedial Project Manager - 09/11/2018 16:39 EDT Electronically signed by Destiny [facility] Conversion Packaging Mechanic Cerner at 07/05/2022 8:43 PM CDT documented in this encounter Plan of Treatment Not on file documented as of this encounter Visit Diagnoses Not on filedocumented in this encounter Care Teams Chief Ultrasound Technologist Relationship Specialty Start Date End Date Martinez Canseco MD [address] [place] [address] PCP - General Family Medicine 10/05/22 documented as of this encounter
--- OUTSIDE RECORDS SUMMARY | 2025-01-01 08:59 | XMS_ITS | Encounter Summary ---
Author Organization [employer] ([place], [place], [place], [place]) Address [address] [place] [address] Care Team Providers Care Data Integrity Analyst Name Role Phone Martinez Canseco MD Primary Care Provider [phone] Encounter Details Date Type Department Care Team (Late st Contact Info) Description 09/04/2018 Transcribed Document [facility] [place] [address] [place] [address] ProviderIvan MD [address] [place] [address] Social History Tobacco Use Types [...] Source : Stated Height Entry Format : [place] Height, Feet : 6 ft Height, Inches : 1 Inch Clinical Height : 185.42 cm Body Surface Area (BSA), Routine : 2.26 m2 Body Mass Index (BMI), Routine : 29.64 kg/m2 Emmie Slater Rn - 09/05/2018 4:17 EDT documented in this encounter Plan of Treatment Not on file documented as of this encounter Visit Diagnoses Not on filedocumented in this encounter Care Teams Data Integrity Analyst Relationship Specialty Start Date End Date Martinez Canseco MD [address] [place] [address] PCP - General Family Medicine 10/05/22 documented as of this encounter
--- OUTSIDE RECORDS SUMMARY | 2025-01-01 08:59 | XMS_ITS | Encounter Summary ---
Author Organization [email or web address] ([place], [place], [place], [place]) Address [address] [place] [address] Care Team Providers Care Vehicle Fare Collector Name Role Phone Martinez Canseco MD Primary Care Provider [phone] Encounter Details Date Type Department Care Team (Late st Contact Info) Description 09/04/2018 Transcribed Document [facility] [place] [address] [place] [address] ProviderIvan MD [address] [place], [place] [address] Social History Tobacco Use Types Packs/Day Years [...] of the form. Electronically signed by Destiny, [facility] Conversion Scale Shooter Cerner at 07/05/2022 8:31 PM CDT documented in this encounter Plan of Treatment Not on file documented as of this encounter Visit Diagnoses Not on filedocumented in this encounter Care Teams Vehicle Fare Collector Relationship Specialty Start Date End Date Martinez Canseco MD [address] [place] [address] PCP - General Family Medicine 10/05/22 documented as of this encounter
--- OUTSIDE RECORDS SUMMARY | 2025-01-01 08:59 | XMS_ITS | Encounter Summary ---
Author Organization [employer] ([place], [place], [place]) Address [address] [place] [address] Care Team Providers Care Tanker Truck Driver Name Role Phone Martinez Canseco MD Primary Care Provider [phone] Encounter Details Date Type Department Care Team (Late st Contact Info) Description 09/05/2018 Transcribed Document [facility] [place] Family Medicine [address] [place] [address] ProviderIvan MD [address] [place] [address] Social History Tobacco Use Types [...] - 09/05/2018 23:40 EDT Electronically signed by [facility] Conversion Bologna Maker Cerner at 07/05/2022 8:32 PM CDT documented in this encounter Plan of Treatment Not on file documented as of this encounter Visit Diagnoses Not on filedocumented in this encounter Care Teams Tanker Truck Driver Relationship Specialty Start Date End Date Martinez Canseco MD [address] [place], [place] [id number] PCP - General Family Medicine 10/05/22 documented as of this encounter
--- OUTSIDE RECORDS SUMMARY | 2025-01-01 08:59 | XMS_ITS | Encounter Summary ---
Author Organization [employer] ([place], [place], [place], [place]) Address [address] [place] [address] Care Team Providers Care Supervisor Photostat Name Role Phone Martinez Canseco MD Primary Care Provider [phone] Encounter Details Date Type Department Care Team (Late st Contact Info) Description 09/12/2018 Transcribed Document [facility] [place] Family Medicine [address] [place] [address] ProviderIvan MD [address] [place], [place] [address] Social History Tobacco Use Types Packs/Day Years [...] 09/12/2018 17:35 EDT Electronically signed by Destiny [facility] Conversion Master Steam Yacht Cerner at 07/05/2022 8:30 PM CDT documented in this encounter Plan of Treatment Not on file documented as of this encounter Visit Diagnoses Not on filedocumented in this encounter Care Teams Supervisor Photostat Relationship Specialty Start Date End Date Martinez Canseco MD [address] [place] [address] PCP - General Family Medicine 10/05/22 documented as of this encounter
--- OUTSIDE RECORDS SUMMARY | 2025-01-01 08:59 | XMS_ITS | Encounter Summary ---
Author Organization [employer] ([place], [place], [place], [place]) Address [address] [place] [address] Care Team Providers Care Patient Accounts Clerk Name Role Phone Martinez Canseco MD Primary Care Provider [phone] Encounter Details Date Type Department Care Team (Late st Contact Info) Description 09/11/2018 Transcribed Document [facility] Pulm & Critical Care Medicine [address] [place] [address] [address] [place] [address] [place] [address] [address] [place] [address] Social History Tobacco Use Types [...] - 09/11/2018 9:39 AM EDT Patient: AUGUSTO PCAHECO Age: 67 years Sex: Male : 1950 Associated Diagnoses: None Author: LEEROY GARVEY MD Procedure Bronchoscopy procedure Date/ Time: 09/11/2018 08:40:00. Confirmed: patient, procedure, side, site, safety procedures followed. Performed by: LEEROY GARVEY MD, can filling room sweeper. Informed consent: not signed by patient. Indication: abnormal chest x-ray, pneumonia, worsening condition, RLL> LLL collapse , before start pt was on 12 liter oxygen . Preparation: NPO, pre-medications given moderate sedation, pre-oxygenation 1 %. Technique: type of bronchoscope flexible, route endotracheal tube, monitoring during procedure (blood pressure monitoring, dobie worker, continuous pulse oximetry). Findings: procedure done with [...] on filedocumented in this encounter Care Teams Patient Accounts Clerk Relationship Specialty Start Date End Date Martinez Canseco MD [address] [place] [address] PCP - General Family Medicine 10/05/22 documented as of this encounter
--- OUTSIDE RECORDS SUMMARY | 2025-01-01 08:59 | XMS_ITS | Encounter Summary ---
Author Organization [employer] ([place], [place], [place], [place]) Address [address] [place] [address] Care Team Providers Care Tea And Spice Supervisor Name Role Phone Martinez Canseco MD Primary Care Provider [phone] Encounter Details Date Type Department Care Team (Late st Contact Info) Description 09/12/2018 Transcribed Document [facility] [place] Family Medicine [address] [place] [address] ProviderIvan MD [address] [place], [place] [address] Social History Tobacco Use Types Packs/Day Years [...] 1950 Associated Diagnoses: None Author: ANGELINE JAY, BRIDGE MAINTAINER-CTS Admission Date: Discharge Date: Attending:Dr. Kyler Gaxiola, [...] Mitral valve repair using a 30 mm [employer]Weebotronic CG annuloplasty band. 3. Coronary artery bypass [...] K/uL Interpretation: Radiology Results (Last 48 hours) [id number] -- 09/02/2018 14:21 CTA Chest PE Protocol (09/10/2018 17:15) Result: CT ANGIOGRAM THORAXHISTORY: Hypoxia. Shortness of breath.TECHNIQUE: Thin section axial CT with IV contrast supplemented [id number] MIP images. FINDINGS: Pulmonary vessels enhance in [...] ON HOSPITAL COURSE Admission ( transfer from [facility] 09/03: Carotid duplex and PFTs JESUSITA [...] Family would like discharge to rehab to [facility] in [facility] - precert initiated Cr improved today [...] early am) Pt has Rehab bed at [facility] ( [facility]), if pt remains in sinus and O2 needs are 4 liters or less,>> and SBP stable then will consider transfer tomorrow Pt seen and evaluated by Dr. Urias who agrees with above documented in this encounter Plan of Treatment Not on file documented as of this encounter Visit Diagnoses Not on filedocumented in this encounter Care Teams Tea And Spice Supervisor Relationship Specialty Start Date End Date Martinez Canseco MD [address] [place] [address] PCP - General Family Medicine 10/05/22 documented as of this encounter
--- OUTSIDE RECORDS SUMMARY | 2025-01-01 08:59 | XMS_ITS | Encounter Summary ---
Author Organization [employer] ([place], [place], [place], [place]) Address [address] [place] [address] Care Team Providers Care Care Process Manager Name Role Phone Martinez Canseco MD Primary Care Provider [phone] Encounter Details Date Type Department Care Team (Late st Contact Info) Description 09/02/[address] [facility] [place] [address] [place] [address] ProviderIvan MD [address] [place] [address] Social History Tobacco Use Types Packs/Day Years [...] Referral Reason Comment : order for routine header setup operator visit Ministry Provided to : Patient, Family/Significant other Ministry Comment/Summary Points : patient's brother, Elpidio,. present during this visit. Spiritual Framework : Unknown Sabianism Preference : No listed preference TL PETIT Chaplain - 09/02/2018 17:17 EDT Spiritual Assessment Patient's Sense of Hope : Strength in patient's life Will to Continue : Yes Sense of Gratitude : Yes Spiritual Assessment Comment/Summary Points : Augusto welcomed visit from a header setup operator, though he was soemwhat reluctant to talk about anything spiritual. His brother, Elpidio, is bedside providing excellent support. [facility]pid[facility] Augusto's daughter plans to come [...] - 09/02/2018 17:17 EDT Electronically signed by [facility] Conversion Checkman Cerner at 07/05/2022 8:34 PM CDT documented in this encounter Plan of Treatment Not on file documented as of this encounter Visit Diagnoses Not on filedocumented in this encounter Care Teams Care Process Manager Relationship Specialty Start Date End Date Martinez Canseco MD [address] [place] [address] PCP - General Family Medicine 10/05/22 documented as of this encounter
--- OUTSIDE RECORDS SUMMARY | 2025-01-01 08:59 | XMS_ITS | Encounter Summary ---
Author Organization [employer] ([place], [place], [place]) Address [address] [place] [address] Care Team Providers Care Industrial Roof Plumber Name Role Phone Martinez Canseco MD Primary Care Provider [phone] Encounter Details Date Type Department Care Team (Late st Contact Info) Description 09/05/2018 Transcribed Document [facility] [place] Family Medicine [address] [place] [address] ProviderIvan MD [address] [place] [address] Social History Tobacco Use Types Packs/Day Years [...] on filedocumented in this encounter Care Teams Industrial Roof Plumber Relationship Specialty Start Date End Date Martinez Canseco MD [address] [place] [address] PCP - General Family Medicine 10/05/22 documented as of this encounter
--- OUTSIDE RECORDS SUMMARY | 2025-01-01 08:59 | XMS_ITS | Encounter Summary ---
Author Organization [employer] ([place], [place], [place]) Address [address] [place] [address] Care Team Providers Care Butter Melter Name Role Phone Martinez Canseco MD Primary Care Provider [phone] Encounter Details Date Type Department Care Team (Late st Contact Info) Description 09/03/2018 Transcribed Document [facility] Family Medicine [address] [place] [address] ProviderIvan MD [address] [place] [address] Social History Tobacco Use Types Packs/Day Years [...] 15:02 EDT Diastolic Blood Pressure 97 mmHg [place] General: Alert and oriented, No acute distress. [...] Radiology results Radiology Results (Last 48 hours) [id number] -- 09/02/2018 14:21 CR Chest 1 Vw [...] on filedocumented in this encounter Care Teams Butter Melter Relationship Specialty Start Date End Date Martinez Canseco MD [address] [place] [address] PCP - General Family Medicine 10/05/22 documented as of this encounter
--- OUTSIDE RECORDS SUMMARY | 2025-01-01 08:59 | XMS_ITS | Encounter Summary ---
Author Organization [employer] ([place], [place], [place], [place]) Address [address] [place] [address] Care Team Providers Care Traffic Observer Name Role Phone Martinez Canseco MD Primary Care Provider [phone] Encounter Details Date Type Department Care Team (Late st Contact Info) Description 09/05/2018 Transcribed Document [facility] [place] [address] [place] [address] ProviderIvan MD [address] [place], [place] [address] Social History Tobacco Use Types Packs/Day Years [...] and emphysematous lungs; CAD (coronary artery disease), [place] coronary artery Author: DIOMEDES KLEIN PA Basic [...] No edema. Gastrointestinal: Soft. Integumentary: Warm, Dry, [place], Aquacel dressing is C/D/I. Psychiatric: Behavior: Restless. Review / Management Results review: SEP 05 03:55 139 109 14 / H 180 4.7 23 0.90 \ SEP 05 03:55 \ L 11.9 / H 15.5 177 / L 35.0 \. Radiology results Radiology Results (Last 48 hours) [id number] -- 09/02/2018 14:21 CR Chest 1 Vw [...] Pre-Op Diagnosis, Medical. CAD (coronary artery disease), [place] coronary artery - Admitting, Medical. CAD (coronary artery disease), [place] coronary artery - Discharge, Medical. Electronically signed by Destiny, [facility] Conversion Product Scientist Cerner at 07/05/2022 8:49 PM CDT documented in this encounter Plan of Treatment Not on file documented as of this encounter Visit Diagnoses Not on filedocumented in this encounter Care Teams Traffic Observer Relationship Specialty Start Date End Date Martinez Canseco MD [address] [place] [address] PCP - General Family Medicine 10/05/22 documented as of this encounter
--- OUTSIDE RECORDS SUMMARY | 2025-01-01 08:59 | XMS_ITS | Encounter Summary ---
Author Organization [employer] ([place], [place], [place], [place]) Address [address] [place] [address] Care Team Providers Care Product Marketing Manager Name Role Phone Martinez Canseco MD Primary Care Provider [phone] Encounter Details Date Type Department Care Team (Late st Contact Info) Description 09/05/2018 Transcribed Document [facility] [place] [address] [place] [address] ProviderIvan MD [address] [place], [place] [address] Social History Tobacco Use Types Packs/Day Years [...] Ivan ProviderMD - 09/05/2018 2:00 AM CDT Banquet Set Up Person Details Entered On: 09/05/2018 4:17 EDT Performed [...] filedocumented in this encounter Care Teams Product Marketing Manager Relationship Specialty Start Date End Date Martinez Cnaseco MD [address] [place] [address] PCP - General Family Medicine 10/05/22 documented as of this encounter
--- OUTSIDE RECORDS SUMMARY | 2025-01-01 08:59 | XMS_ITS | Encounter Summary ---
Author Organization [employer] ([place], [place], [place], [place]) Address [address] [place] [address] Care Team Providers Care Transfer Worker Name Role Phone Martinez Canseco MD Primary Care Provider [phone] Encounter Details Date Type Department Care Team (Late st Contact Info) Description 09/05/2018 Transcribed Document [facility] [place] [address] [place] [address] ProviderIvan MD [address] [place], [place] [address] Social History Tobacco Use Types Packs/Day Years [...] 09/05/2018 19:55 EDT Electronically signed by Destiny [facility] Conversion Medical Laboratory Technical Officer Cerner at 07/05/2022 8:52 PM CDT documented in this encounter Plan of Treatment Not on file documented as of this encounter Visit Diagnoses Not on filedocumented in this encounter Care Teams Transfer Worker Relationship Specialty Start Date End Date Martinez Canseco MD [address] [place] [address] PCP - General Family Medicine 10/05/22 documented as of this encounter
--- OUTSIDE RECORDS SUMMARY | 2025-01-01 08:59 | XMS_ITS | Encounter Summary ---
Author Organization [employer] ([place], [place], [place], [place]) Address [address] [place] [address] Care Team Providers Care Cable Mechanic Name Role Phone Martinez Canseco MD Primary Care Provider [phone] Encounter Details Date Type Department Care Team (Late st Contact Info) Description 09/04/2018 Transcribed Document [facility] [place] Family Medicine [address] [place] [address] ProviderIvan MD [address] [place] [address] Social History Tobacco Use Types [...] Mitral valve repair using a 30 mm [employer].COMtronic CG annuloplasty band. 3. Coronary artery bypass [...] General endotracheal anesthesia. SURGEON: Kyler Gaxiola MD LEAD SUPPLY WORKER: Brody Ojeda, physician school office assistant. INDICATION FOR PROCEDURE: Augusto Hansen is [...] systemically heparinized. Aorta was cannulated using a 22-Dominican aortic cannula. The right angle 24-Dominican venous cannula was inserted directly into the superior vena cava. A 34-Dominican right angle venous cannula was inserted into [...] sac was approximated using silk sutures. A 36-Dominican right-angled chest tube was placed in the left and another one in the right pleural spaces. A 36-Dominican straight chest tube was also placed in [...] Dr. Martinez Canseco Electronically signed by Destiny [facility] Conversion Ground Crew Chief Cerner at 07/05/2022 8:36 PM CDT documented in this encounter Plan of Treatment Not on file documented as of this encounter Visit Diagnoses Not on filedocumented in this encounter Care Teams Cable Mechanic Relationship Specialty Start Date End Date Martinez Canseco MD [address] [place] [address] PCP - General Family Medicine 10/05/22 documented as of this encounter
--- OUTSIDE RECORDS SUMMARY | 2025-01-01 08:59 | XMS_ITS | Encounter Summary ---
Author Organization [employer] ([place], [place], [place], [place]) Address [address] [place] [address] Care Team Providers Care Medical Office Supervisor Name Role Phone Martinez Canseco MD Primary Care Provider [phone] Encounter Details Date Type Department Care Team (Late st Contact Info) Description 09/02/2018 Transcribed Document [facility] [place] Family Medicine [address] [place] [address] ProviderIvan MD [address] [place] [address] Social History Tobacco Use Types Packs/Day Years [...] #2 Relationship : daughter Primary Language : Nigerian Communication Barrier : None Soni Bland RN [...] Scale Risk Level : 25-45 Medium Risk [place] Fall Interventions : Adequate lighting, Assistive devices [...] Source : Stated Height Entry Format : [place] Height, Feet : 6 ft(Converted to: 183 cm, 72 Inch) Height, Inches : 1 Inch(Converted to: 0 ft 1 Inch, 2.54 cm) Clinical Height : 185.42 cm Weight Source : Bed scale Weight Entry Format : [place] Clinical Dosing Weight : 92.27 kg Weight, Pounds : 203 lb Body Surface Area (BSA) : 2.17 m2 Body Mass Index : 26.8 kg/m2 ([place]) [place] Body Weight : 79 kg Soni Bland [...] 09/02/2018 14:54 EDT Electronically signed by Destiny [facility] Conversion Photography Manager Cerner at 07/05/2022 8:52 PM CDT documented in this encounter Plan of Treatment Not on file documented as of this encounter Visit Diagnoses Not on filedocumented in this encounter Care Teams Medical Office Supervisor Relationship Specialty Start Date End Date Martinez Canseco MD [address] [place] [address] PCP - General Family Medicine 10/05/22 documented as of this encounter
--- OUTSIDE RECORDS SUMMARY | 2025-01-01 08:59 | XMS_ITS | Encounter Summary ---
Author Organization [employer] ([place], [place], [place], [place]) Address [address] [place] [address] Care Team Providers Care Anvilsmith Name Role Phone Martinez Canseco MD Primary Care Provider Encounter Details Date Type Department Care Team (Late st Contact Info) Description 09/04/2018 Transcribed Document [facility] [place] [address] [place] [address] ProviderIvan MD [address] [place] [address] Social History Tobacco Use Types [...] Comment : Referral for CR sent to [employer] per manager case. Jerrica Whitehead Rn-Clinical Coordinator I - 09/09/2018 8:16 EDT documented in this encounter Plan of Treatment Not on file documented as of this encounter Visit Diagnoses Not on filedocumented in this encounter Care Teams Anvilsmith Relationship Specialty Start Date End Date Martinez Canseco MD [address] [place] [address] PCP - General Family Medicine 10/05/22 documented as of this encounter
--- OUTSIDE RECORDS SUMMARY | 2025-01-01 08:59 | XMS_ITS | Encounter Summary ---
Author Organization [employer] ([place], [place], [place], [place]) Address [address] [place] [address] Care Team Providers Care Chassis Inspector Name Role Phone Martinez Canseco MD Primary Care Provider [phone] Encounter Details Date Type Department Care Team (Late st Contact Info) Description 09/04/2018 Transcribed Document [facility] [place] [address] [place] [address] ProviderIvan MD [address] [place], [place] [address] Social History Tobacco Use Types Packs/Day Years [...] on filedocumented in this encounter Care Teams Chassis Inspector Relationship Specialty Start Date End Date Martinez Canseco MD [address] [place] [address] PCP - General Family Medicine 10/05/22 documented as of this encounter
--- OUTSIDE RECORDS SUMMARY | 2025-01-01 08:59 | XMS_ITS | Encounter Summary ---
Author Organization [employer] ([place], [place], [place], [place]) Address [address] [place] [address] Care Team Providers Care Anesthesiology Resident Name Role Phone Martinez Canseco MD Primary Care Provider [phone] Encounter Details Date Type Department Care Team (Late st Contact Info) Description 09/05/2018 Transcribed Document [facility] [place] [address] [place] [address] ProviderIvan MD [address] [place], [place] [address] Social History Tobacco Use Types Packs/Day Years [...] On: 09/05/2018 14:35 EDT by JARET BAUM Rn-Mobile Equipment MechanicSausage Stuffer Progress Note Discharge Arrangements : Patient Post-Acute Information Patient Name: AUGUSTO PACHECO Gender: Male : [birth year] Age: 67 Years No Post-Acute Placement(s) Listed No Post-Acute Service(s) Listed No [place] Referral(s) Listed Discharge Options Discussed with Patient : DME, Home Health Does the Patient have a Floor to SNF Benefit? : Yes Is the Patient Meeting Medical Necessity : Yes JARET BAUM, Rn-Mobile Equipment Mechanic - 09/05/2018 14:35 EDT Narrative Progress Note [...] and will possibly need short-term rehab at [place], [place]). CM will discuss ongoing discharge planning with patient. Will need PT/OT orders when extubated. JARET BAUM Rn-Mobile Equipment Mechanic - 09/05/2018 14:35 EDT documented in this encounter Plan of Treatment Not on file documented as of this encounter Visit Diagnoses Not on filedocumented in this encounter Care Teams Anesthesiology Resident Relationship Specialty Start Date End Date Martinez Canseco MD [address] [place] [address] PCP - General Family Medicine 10/05/22 documented as of this encounter
--- OUTSIDE RECORDS SUMMARY | 2025-01-01 08:59 | XMS_ITS | Encounter Summary ---
Author Organization [employer] ([place], [place], [place], [place]) Address [address] [place] [address] Care Team Providers Care Geothermal Operations Engineer Name Role Phone Martinez Canseco MD Primary Care Provider [phone] Encounter Details Date Type Department Care Team (Late st Contact Info) Description 09/05/2018 Transcribed Document [facility] [place] Family Medicine [address] [place] [address] ProviderIvan MD [address] [place] [address] Social History Tobacco Use Types [...] - 09/05/2018 10:52 EDT Electronically signed by [facility] Conversion Quill Machine Tender Cerner at 07/05/2022 8:41 PM CDT documented in this encounter Plan of Treatment Not on file documented as of this encounter Visit Diagnoses Not on filedocumented in this encounter Care Teams Geothermal Operations Engineer Relationship Specialty Start Date End Date Martinez Canseco MD [address] [place] [address] PCP - General Family Medicine 10/05/22 documented as of this encounter
--- OUTSIDE RECORDS SUMMARY | 2025-01-01 08:59 | XMS_ITS | Encounter Summary ---
Author Organization [employer] ([place], [place], [place], [place]) Address [address] [place] [address] Care Team Providers Care Barrel Reamer Name Role Phone Martinez Canseco MD Primary Care Provider [phone] Encounter Details Date Type Department Care Team (Late st Contact Info) Description 09/11/2018 Transcribed Document [facility] [place] [address] [place] [address] ProviderIvan MD [address] [place] [address] Social History Tobacco Use Types [...] Ivan ProviderMD - 09/11/2018 8:29 AM CDT [facility] Endo IntraOp Summary Primary Physician: ARLETTE DE JESUS MD Finalized Date/Time: 09/11/18 09:05:45 Pt. Name: AUGUSTO PACHECO/Sex: 1950 Male Med Rec #: [id number] Physician: ESVIN BUTTS MD-CAT Financial #: [id number] Pt. Type: I Room/Bed: [facility]/1 Admit/Disch: 09/02/18 14:21:00 - Institution: [facility] Endo - Case Attendance Entry 1 Entry 2 Entry 3 Case Attendee ARLETTE DE JESUS MD RUBLE, AMY M., RN AARON VILLA MD Role Performed Surgeon/Proceduralist, Timber Grader, First Anesthesiologist of First Record Time In [...] Crna Role Performed Scrub, First Scrub, Second CRATE BUILDER/Nurse Antique Finisher Time In 09/11/18 08:15:00 09/11/18 08:15:00 09/11/18 08:15:00 Time Out 09/11/18 08:40:00 09/11/18 08:40:00 09/11/18 08:40:00 Procedure Bronchoscopy Flexible, Bronchoscopy Flexible, Bronchoscopy Flexible, Bronchial Washings Bronchial Washings Bronchial Washings Other Attendee [facility] Superficial Wound Closed By: Last Modified By: SUSHMA LOPEZ, SUSHMA HUBER, SUSHMA HUBER, EDUARDO 09/11/18 08:38:13 09/11/18 08:24:18 09/11/18 08:38:13 [facility] Endo - Case Attendance Audit 09/11/18 08:38:13 Hotel Front Office Manager: SPENCEAM Modifier: SPENCEAM 1 <+> Time Out [...] Procedure Bronchoscopy Flexible, Bronchial Washings 09/11/18 08:36:13 Hotel Front Office Manager: SPENCEAM Modifier: SPENCEAM 6 <+> Case Attendee 6 <*> Procedure Bronchoscopy Flexible, Bronchial Washings 09/11/18 08:33:38 Hotel Front Office Manager: SPENCEAM Modifier: SPENCEAM 1 <*> Procedure Bronchoscopy Flexible 2 <*> Procedure Bronchoscopy Flexible 3 <*> Procedure Bronchoscopy Flexible 4 <*> Procedure Bronchoscopy Flexible 5 <*> Procedure Bronchoscopy Flexible 6 <*> Procedure Bronchoscopy Flexible 09/11/18 08:25:38 Hotel Front Office Manager: SPENCEAM Modifier: SPENCEAM 1 <*> Procedure Bronchoscopy Flexible 2 <+> Time In 2 <*> Procedure Bronchoscopy Flexible 3 <+> Time In 3 <*> Procedure Bronchoscopy Flexible 4 <+> Time In 4 <*> Procedure Bronchoscopy Flexible 5 <+> Time In 5 <*> Procedure Bronchoscopy Flexible 6 <+> Time In 6 <*> Procedure Bronchoscopy Flexible 09/11/18 08:24:18 Hotel Front Office Manager: SPENCEAM Modifier: SPENCEAM 1 <+> Time In [...] <+> 6 Role Performed <+> 6 Procedure [facility] Endo - Case times Entry 1 Patient In Room Time 09/11/18 08:15:00 Out Room Time 09/11/18 08:44:00 Anesthesia Start Time 09/11/18 08:15:00 Stop Time 09/11/18 08:44:00 Surgery / Procedure Times Start Time 09/11/18 08:29:00 Stop Time 09/11/18 08:35:00 Last Modified By: SUSHMA LOPEZ RN 09/11/18 08:35:29 [facility] Endo - Case times Audit 09/11/18 09:05:42 Hotel Front Office Manager: SPENCEAM Modifier: SPENCEAM 1 <*> Out Room Time 09/11/18 08:40:00 1 <*> Stop Time 09/11/18 08:40:00 09/11/18 08:36:42 Hotel Front Office Manager: SPENCEAM Modifier: SPENCEAM <+> 1 Out Room Time <+> 1 Stop Time 09/11/18 08:35:29 Hotel Front Office Manager: SPENCEAM Modifier: SPENCEAM <+> 1 Start Time <+> 1 Stop Time [facility] Endo - Cultures and Spec Summary Entry 1 Cultrures and Specimens Specimen Ordered: Yes Specimens Types Culture(s), Pathology Specimen(s) Labeled Lab, Pathology and Sent to Last Modified By: SUSHMA LOPEZ RN 09/11/18 08:33:48 [facility] Endo - Delays Entry 1 Delay Reason Ancillary department delay Duration 15 Minute(s) Comment transported to Endoscopy Last Modified By: SUSHMA LOPEZ RN 09/11/18 08:33:17 [facility] Endo - Departure from OR Entry 1 Integumentary Assessment Integumentary WDL Assessment WDL Transfer/Handoff Transfer to PACU Phase I Handoff Reported to SUSHMA LOPEZ, RN Post-op Transport Stretcher/Gurney Via Patient Transport SUSHMA LOPEZ, RN Accompanied by Last Modified By: SUSHMA LOPEZ RN 09/11/18 08:24:25 [facility] Endo - Endoscopy Details Entry 1 Abdomen Procedure Soft, Non-distended, Assessment Non-Tender Procedure Abdomen 09/11/18 08:24:00 Assessment D/T Radio Frequency Ablation Last Modified By: SUSHMA LOPEZ RN 09/11/18 08:24:29 [facility] Endo - Fire Risk Assessment Entry 1 Fire Info Surgical Site or 1- Yes Incision Above the Xyphoid Open O2 Source 1- Yes (Mask or Cannula) Available Ignition 1- Yes (ESU, Laser, Light Source) Fire Risk 3 Assessment Score Fire Score Fire Risk Yes Assessment Complete Fire Risk SUSHMA LOPEZ, vice president of procurement Verified By Fire Risk 09/11/18 08:24:00 Assessment Verified Date/Time Fire Risk High Risk Protocol Yes Implemented Standard Fire Yes Safety Precautions Followed Last Modified By: SUSHMA LOPEZ RN 09/11/18 08:24:32 [facility] Endo - General Case Automotive Brake Technician 1 Case Information OR Endo 04 [facility] Case Level 1 Room Verified Yes Wound Class II - Clean-Contaminated Specialty SN Pulmonology Anesthesia Type General ASA Class 4 Diagnosis Preop Diagnosis right lung collapse Postop Same As Preop Yes Postop Diagnosis right lung collapse Last Modified By: SUSHMA LOPEZ RN 09/11/18 08:25:02 [facility] Endo - Intraoperative Assessment Entry 1 Valid History / Yes Physical in Chart Preoperative Yes Checklist Reviewed/Evaluated Patient is Latex No Sensitive Level of WDL Consciousness (WDL = Alert, Oriented to Person, Place, and Time) Present Upon ECG monitored Arrival to OR Last Modified By: SUSHMA LOPEZ RN 09/11/18 08:25:06 [facility] Endo - Intraoperative Equipment Entry 1 Equipment Intraop Monitoring Electrocardiogram Three lead placement (ECG) Electrode Placement Blood Pressure Arm, left upper Location Pulse Oximeter Hand, right Probe Site Antiembolic Devices Scopes Flexible Endoscopes Bronchoscope Used Scope Serial B8 Number/Identificatio n Number Photo/Video Documentation Photo Yes Video No Last Modified By: SUSHMA LOPEZ RN 09/11/18 08:25:19 [facility] Endo - Patient Positioning Entry 1 Procedure Bronchoscopy Flexible, Bronchial Washings Body Position Supine Left Arm Position Resting at side Right Arm Position Resting at side Left Leg Position Uncrossed, parallel Right Leg Position Uncrossed, parallel Feet Uncrossed Yes Pressure Points Yes Checked Positioned By SUSHMA LOPEZ RN Position Verified Positioning Yes Verified by Surgeon Last Modified By: SUSHMA LOPEZ RN 09/11/18 08:25:28 [facility] Endo - Patient Positioning Audit 09/11/18 08:33:39 Hotel Front Office Manager: SPENCEAM Modifier: SPENCEAM 1 <*> Procedure Bronchoscopy Flexible [facility] Endo - Sign In Entry 1 Patient, Site, Yes Procedure Identified Surgical Consent Yes Confirmed Surgical Site N/A Marked by person performing procedure Airway Hypothermia Risk No Warming Measures No Taken Last Modified By: SUSHMA LOPEZ RN 09/11/18 08:25:36 [facility] Endo - Sign Out Entry 1 RN [...] Modified By: SUSHMA LOPEZ RN 09/11/18 08:36:52 [facility] Endo - Surgical Procedures Entry 1 Entry [...] AMY M., RN 09/11/18 08:25:29 09/11/18 08:33:35 [facility] Endo - Surgical Procedures Audit 09/11/18 08:36:57 Hotel Front Office Manager: SPENCEAM Modifier: SPENCEAM <+> 1 Start <+> 1 Stop <+> 2 Start <+> 2 Stop 09/11/18 08:33:35 Hotel Front Office Manager: SPENCEAM Modifier: SPENCEAM <+> 2 Procedure <+> 2 Primary Procedure <+> 2 Primary Surgeon <+> 2 Specialty <+> 2 Wound Class <+> 2 Anesthesia Type 09/11/18 08:26:29 Hotel Front Office Manager: SPENCEAM Modifier: SPENCEAM 1 <*> Procedure Bronchoscopy Flexible 09/11/18 08:25:51 Hotel Front Office Manager: SPENCEAM Modifier: SPENCEAM 1 <*> Procedure Bronchoscopy Flexible 1 <+> Specialty 1 <*> Anesthesia Type MAC [facility] Endo - Time Out Entry 1 Procedure [...] Modified By: SUSHMA LOPEZ RN 09/11/18 08:33:39 [facility] Endo - Time Out Audit 09/11/18 08:33:39 Hotel Front Office Manager: SPENCEAM Modifier: SPENCEAM 1 <*> Procedure to be Performed Bronchoscopy Flexible Case Comments <None> Finalized By: SUSHMA LOPEZ RN Document Signatures Signed By: SUSHMA LOPEZ RN 09/11/18 09:05 Electronically signed by Destiny [facility] Conversion Wind Power Project Manager Cerner at 07/05/2022 8:46 PM CDT documented in this encounter Plan of Treatment Not on file documented as of this encounter Visit Diagnoses Not on filedocumented in this encounter Care Teams Barrel Reamer Relationship Specialty Start Date End Date Martinez Canseco MD [address] [place] [address] PCP - General Family Medicine 10/05/22 documented as of this encounter
--- OUTSIDE RECORDS SUMMARY | 2025-01-01 08:59 | XMS_ITS | Encounter Summary ---
Author Organization [employer] ([place], [place], [place], [place]) Address [address] [place] [address] Care Team Providers Care Paint Spray Tender Name Role Phone Martinez Canseco MD Primary Care Provider [phone] Encounter Details Date Type Department Care Team (Late st Contact Info) Description 09/12/[address] [facility] [place] Family Medicine [address] [place] [address] ProviderIvan MD [address] [place], [place] [address] Social History Tobacco Use Types Packs/Day Years [...] on filedocumented in this encounter Care Teams Paint Spray Tender Relationship Specialty Start Date End Date Martinez Canseco MD [address] [place] [address] PCP - General Family Medicine 10/05/22 documented as of this encounter
--- OUTSIDE RECORDS SUMMARY | 2025-01-01 08:59 | XMS_ITS | Encounter Summary ---
Author Organization [employer] ([place], [place], [place], [place]) Address [address] [place] [address] Care Team Providers Care Scientific Laboratory Supervisor Name Role Phone Martinez Canseco MD Primary Care Provider [phone] Encounter Details Date Type Department Care Team (Late st Contact Info) Description 09/12/2018 Transcribed Document [facility] [place] [address] [place] [address] ProviderIvan MD [address] [place] [address] Social History Tobacco Use Types [...] 09/12/2018 13:20 EDT Electronically signed by Destiny [facility] Conversion Biomedical Engineering Supervisor Cerner at 07/05/2022 8:32 PM CDT documented in this encounter Plan of Treatment Not on file documented as of this encounter Visit Diagnoses Not on filedocumented in this encounter Care Teams Scientific Laboratory Supervisor Relationship Specialty Start Date End Date Martinez Canseco MD [address] [place] [address] PCP - General Family Medicine 10/05/22 documented as of this encounter
--- OUTSIDE RECORDS SUMMARY | 2025-01-01 08:59 | XMS_ITS | Encounter Summary ---
Author Organization [employer] ([place], [place], [place], [place]) Address [address] [place] [address] Care Team Providers Care Dimension Stone Quarry Supervisor Name Role Phone Martinez Canseco MD Primary Care Provider [phone] Encounter Details Date Type Department Care Team (Late st Contact Info) Description 09/11/2018 Transcribed Document [facility] [place] Family Medicine [address] [place] [address] ProviderIvan MD [address] [place] [address] Social History Tobacco Use Types [...] Ivan ProviderMD - 09/11/2018 1:00 PM CDT [facility] Endo PreOp Summary Primary Physician: ARLETTE DE JESUS MD Finalized Date/Time: 09/11/18 08:07:13 Pt. Name: AUGUSTO PACHECO/Sex: 1950 Male Med Rec #: [id number] Physician: ESVIN BUTTS MD-CAT Financial #: [id number] Pt. Type: I Room/Bed: [facility]/1 Admit/Disch: 09/02/18 14:21:00 - Institution: [facility] Endo PreOp Case Times Entry 1 In Preop 09/11/18 08:02:00 Ready for Holding n/a Room Patient Ready for n/a Surgery Patient Out of Preop 09/11/18 08:07:00 Patient Out of n/a Holding Room Last Modified By: SUSHMA LOPEZ RN 09/11/18 08:07:11 [facility] Endo PreOp Case Times Audit 09/11/18 08:07:11 Chief Analytics Officer: SPENCEAM Modifier: SPENCEAM <+> 1 Patient Out of Preop Finalized By: SUSHMA LOPEZ, RN Document Signatures Signed By: SUSHMA LOPEZ RN 09/11/18 08:07 Electronically signed by Destiny [facility] Conversion Assistant Professor Of Mathematics Cerner at 07/05/2022 8:48 PM CDT documented in this encounter Plan of Treatment Not on file documented as of this encounter Visit Diagnoses Not on filedocumented in this encounter Care Teams Dimension Stone Quarry Supervisor Relationship Specialty Start Date End Date Martinez Canseco MD [address] [place] [address] PCP - General Family Medicine 10/05/22 documented as of this encounter
--- OUTSIDE RECORDS SUMMARY | 2025-01-01 08:59 | XMS_ITS | Encounter Summary ---
Author Organization [employer] ([place], [place], [place], [place]) Address [address] [place] [address] Care Team Providers Care Patient Care Director Name Role Phone Martinez Canseco MD Primary Care Provider [phone] Encounter Details Date Type Department Care Team (Late st Contact Info) Description 09/12/2018 Transcribed Document [facility] [place] [address] [place] [address] ProviderIvan MD [address] [place] [address] Social History Tobacco Use Types [...] 09/12/2018 5:00 EDT by Kalen El [facility] COORD Height and Weight, Routine Routine Weight Source : Bed scale Routine Weight Entry Format : [place] Routine Weight, Pounds : 211 lb Routine Weight, Ounces : 8 oz Routine Weight Calculation : 96.14 kg Height Source : Stated Height Entry Format : [place] Height, Feet : 6 ft Height, Inches : 1 Inch Clinical Height : 185.42 cm Body Surface Area (BSA), Routine : 2.21 m2 Body Mass Index (BMI), Routine : 27.96 kg/m2 Kalen El, [facility] - 09/12/2018 4:23 EDT Electronically signed by Destiny [facility] Conversion Visitor Services Information Assistant Cerner at 07/05/2022 8:26 PM CDT documented in this encounter Plan of Treatment Not on file documented as of this encounter Visit Diagnoses Not on filedocumented in this encounter Care Teams Patient Care Director Relationship Specialty Start Date End Date Martinez Canseco MD [address] [place] [address] PCP - General Family Medicine 10/05/22 documented as of this encounter
--- OUTSIDE RECORDS SUMMARY | 2025-01-01 09:00 | XMS_ITS | Encounter Summary ---
Author Organization [employer] ([place], [place], [place], [place]) Address [address] [place] [address] Care Team Providers Care Certified Coding Specialist Name Role Phone Martinez Canseco MD Primary Care Provider [phone] Encounter Details Date Type Department Care Team (Late st Contact Info) Description 09/04/2018 Transcribed Document [facility] [place] Family Medicine [address] [place] [address] ProviderIvan MD [address] [place] [address] Social History Tobacco Use Types [...] Ivan ProviderMD - 09/04/2018 1:00 PM CDT [facility] Main OR Preop Summary Primary Physician: ESVIN BUTTS MD-CAT Finalized Date/Time: 09/04/18 16:49:40 Pt. Name: AUGUSTO PACHECO/Sex: 1950 Male Med Rec #: [id number] Physician: ESVIN BUTTS MD-CAT Financial #: [id number] Pt. Type: I Room/Bed: /13 Admit/Disch: 09/02/18 14:21:00 - Institution: [facility] PreOp Case Times Entry 1 In Preop 09/04/18 12:25:00 Ready for Holding n/a Room Patient Ready for 09/04/18 14:18:00 Surgery Patient Out of Preop 09/04/18 16:50:00 Patient Out of n/a Holding Room Last Modified By: Trudy Alarcon RN 09/04/18 16:49:39 [facility] PreOp Case Times Audit 09/04/18 16:49:39 Motor Assembly Supervisor: CESILIAJAREDALR Modifier: RAMEZALR <+> 1 Patient Out of Preop Finalized By: Trudy Alarcon, RN Document Signatures Signed By: Trudy Alarcon RN 09/04/18 16:49 documented in this encounter Plan of Treatment Not on file documented as of this encounter Visit Diagnoses Not on filedocumented in this encounter Care Teams Certified Coding Specialist Relationship Specialty Start Date End Date Martinez Canseco MD [address] [place] [address] PCP - General Family Medicine 10/05/22 documented as of this encounter
--- OUTSIDE RECORDS SUMMARY | 2025-01-01 09:00 | XMS_ITS | Encounter Summary ---
Author Organization [employer] ([place], [place], [place], [place]) Address [address] [place] [address] Care Team Providers Care Account Development Associate Name Role Phone Martinez Canseco MD Primary Care Provider [phone] Encounter Details Date Type Department Care Team (Late st Contact Info) Description 09/13/2018 Transcribed Document [facility] [place] Family Medicine [address] [place] [address] ProviderIvan MD [address] [place], [place] [address] Social History Tobacco Use Types Packs/Day Years [...] on filedocumented in this encounter Care Teams Account Development Associate Relationship Specialty Start Date End Date Martinez Canseco MD [address] [place] [address] PCP - General Family Medicine 10/05/22 documented as of this encounter
--- OUTSIDE RECORDS SUMMARY | 2025-01-01 09:00 | XMS_ITS | Encounter Summary ---
Author Organization [employer] ([place], [place], [place], [place]) Address [address] [place] [address] Care Team Providers Care Button Tufter Name Role Phone Martinez Canseco MD Primary Care Provider [phone] Encounter Details Date Type Department Care Team (Late st Contact Info) Description 09/13/2018 Transcribed Document [facility] [place] Family Medicine [address] [place] [address] ProviderIvan MD [address] [place], [place] [address] Social History Tobacco Use Types Packs/Day Years [...] 1950 Associated Diagnoses: None Author: ANGELINE JAY, SENIOR TABLEAU DEVELOPER-CTS Admission Date: Discharge Date: Attending:Dr. Kyler Gaxiola, [...] Mitral valve repair using a 30 mm [employer] CG annuloplasty band. 3. Coronary artery bypass [...] [place] Interpretation: Radiology Results (Last 48 hours) [id number] -- 09/02/2018 14:21 CR Chest 1 Vw [...] ON HOSPITAL COURSE Admission ( transfer from [facility] 09/03: Carotid duplex and PFTs JESUSITA - moderate to severe MR 09/04: MV repair and CABGx2 09/05: POD#1 Intubated Consult Pulm for vent management Lasix 60mg IV x 1 Wean gtts as tolerated 09/06: POD#2 Hopefully can wean and extubate today Continue to wean gtts as tolerated 09/08: POD # [address] [facility] 09/09: POD #5 Nausea improving Hypotension - hold BB and lisinopril Cr worse today 1.2 (from0.9) - suspected hypoperfusion 09/10: POD # 6 Nausea better today, still decreased appetite Family would like discharge to rehab to [facility] in [facility] - precert initiated Cr improved [...] early am) Pt has Rehab bed at [facility] ( [facility]), if pt remains in sinus and O2 [...] be anytime after Sunday, Electronically signed by Destiny [facility] Conversion Manager Services Cerner at 07/05/2022 8:41 PM CDT documented in this encounter Plan of Treatment Not on file documented as of this encounter Visit Diagnoses Not on filedocumented in this encounter Care Teams Button Tufter Relationship Specialty Start Date End Date Matrinez Canseco MD [address] [place] [address] PCP - General Family Medicine 10/05/22 documented as of this encounter
--- OUTSIDE RECORDS SUMMARY | 2025-01-01 09:00 | XMS_ITS | Encounter Summary ---
Author Organization [employer] ([place] Address [address] [place] [address] Care Team Providers Care Harvesting Contractor Name Role Phone Martinez Canseco MD Primary Care Provider [phone] Encounter Details Date Type Department Care Team (Late st Contact Info) Description 09/04/2018 Transcribed Document [facility] [place] Family Medicine [address] [place] [address] ProviderIvan MD [address] [place] [address] Social History Tobacco Use Types [...] Nino MD - 09/04/2018 5:35 PM CDT [facility] Main OR IntraOp Summary Primary Physician: ESVIN BUTTS MD-CAT Finalized Date/Time: 09/05/18 09:42:31 Pt. Name: IZABELLA PACHECO/Sex: 1950 Male Med Rec #: [id number] Physician: ESVIN BUTTS MD-CAT Financial #: [id number] Pt. Type: I Room/Bed: 02/1 Admit/Disch: 09/02/18 14:21:00 - Institution: [facility] IntraOp Case Attendance Entry 1 Entry 2 Entry 3 Case Attendee ESVIN BUTTS GRAFF, WAYNE B, MD Grimes, Jennifer, [facility] MD-CAT Pref Card Builder Role Performed Surgeon/Proceduralist, Anesthesiologist Water Meter Reader, First First Time In 09/04/18 16:52:00 09/04/18 16:52:00 09/04/18 16:52:00 Time Out 09/04/18 23:06:00 09/04/18 23:06:00 09/04/18 22:27:00 Procedure Vein Cherry Plain Vein Cherry Plain Vein Cherry Plain Endosaphenous, Endosaphenous, Endosaphenous, Transesophageal Transesophageal Transesophageal Echocardiogram, [...] Role Performed Scrub, First Scrub, Second Physician assistant hairstylist Time In 09/04/18 16:52:00 09/04/18 16:52:00 09/04/18 16:52:00 Time Out 09/04/18 23:06:00 09/04/18 23:06:00 09/04/18 23:06:00 Procedure Vein Cherry Plain Vein Cherry Plain Vein [place] Endosaphenous, Endosaphenous, Endosaphenous, Transesophageal Transesophageal Transesophageal Echocardiogram, CABG w Echocardiogram, CABG w Echocardiogram, CABG w Mitral Valve Mitral Valve Mitral Valve Other Attendee ORIENTEE Superficial Wound Closed By: Last Modified By: CECI THOMAS 09/04/18 CECI THOMAS 09/04/18 CECI THOMAS 09/04/18 23:06:40 23:06:40 23:06:40 Entry 7 Entry 8 Entry 9 Case Attendee Silver Bonilla, vocal music teacher EDILSON WHITT MD TERRY, JULIA Role Performed Senior Information Security Analyst Anesthesiologist Water Meter Reader, First Time In 09/04/18 16:52:00 09/04/18 21:23:00 09/04/18 22:24:00 Time Out 09/04/18 23:06:00 09/04/18 23:06:00 09/04/18 23:06:00 Procedure Vein Cherry Plain Vein Cherry Plain Vein [place] Endosaphenous, Endosaphenous, Endosaphenous, Transesophageal Transesophageal Transesophageal Echocardiogram, CABG w Echocardiogram, CABG w Echocardiogram, CABG w Mitral Valve Mitral Valve Mitral Valve Other Attendee Superficial Wound Closed By: Last Modified By: CECI THOMAS 09/04/18 CECI THOMAS 09/04/18 CECI THOMAS 09/04/18 23:06:40 23:06:40 23:06:40 [facility] IntraOp Case Attendance Audit 09/04/18 23:06:40 Windows Server Support Technician: ADELITA Modifier: [email or web address] 1 <+> Time Out 1 <*> Procedure Vein [place] Endosaphenous, Transesophageal Echocardiogram, CABG w Mitral Valve 2 <+> Time Out 2 <*> Procedure Vein [place] Endosaphenous, Transesophageal Echocardiogram, CABG w Mitral Valve 3 <*> Procedure Vein [place] Endosaphenous, Transesophageal Echocardiogram, CABG w Mitral Valve 4 <+> Time Out 4 <*> Procedure Vein [place] Endosaphenous, Transesophageal Echocardiogram, CABG w Mitral Valve 5 <+> Time Out 5 <*> Procedure Vein [place] Endosaphenous, Transesophageal Echocardiogram, CABG w Mitral Valve 6 <+> Time Out 6 <*> Procedure Vein [place] Endosaphenous, Transesophageal Echocardiogram, CABG w Mitral Valve 7 <+> Time Out 7 <*> Procedure Vein [place] Endosaphenous, Transesophageal Echocardiogram, CABG w Mitral Valve 8 <+> Time Out 8 <*> Procedure Vein [place] Endosaphenous, Transesophageal Echocardiogram, CABG w Mitral Valve 9 <+> Time Out 9 <*> Procedure Vein [place] Endosaphenous, Transesophageal Echocardiogram, CABG w Mitral Valve 09/04/18 22:27:20 Windows Server Support Technician: ELISABETH Modifier: ADELITA 3 <+> Time Out 3 <*> Procedure Vein Cherry Plain Endosaphenous, Transesophageal Echocardiogram, CABG w Mitral Valve 09/04/18 22:25:00 Windows Server Support Technician: ELISABETH Modifier: ELISABETH <+> 9 Case Attendee <+> 9 Role Performed <+> 9 Time In <+> 9 Procedure 09/04/18 21:29:58 Windows Server Support Technician: ELISABETH Modifier: LINWOODKingaKELSIE <+> 8 Case Attendee <+> 8 Role Performed <+> 8 Time In <+> 8 Procedure 09/04/18 17:55:49 Windows Server Support Technician: ELISABETH Modifier: LINWOODSKELSIE 1 <*> Procedure Vein Cherry Plain Endosaphenous, Transesophageal Echocardiogram, Mitral Valve Replacement, CABG w Mitral Valve 2 <*> Procedure Vein [place] Endosaphenous, Transesophageal Echocardiogram, Mitral Valve Replacement, CABG w Mitral Valve 3 <*> Procedure Vein [place] Endosaphenous, Transesophageal Echocardiogram, Mitral Valve Replacement, CABG w Mitral Valve 4 <*> Procedure Vein [place] Endosaphenous, Transesophageal Echocardiogram, Mitral Valve Replacement, CABG w Mitral Valve 5 <*> Procedure Vein [place] Endosaphenous, Transesophageal Echocardiogram, Mitral Valve Replacement, CABG w Mitral Valve 6 <*> Procedure Vein [place] Endosaphenous, Transesophageal Echocardiogram, Mitral Valve Replacement, CABG w Mitral Valve 7 <*> Procedure Vein [place] Endosaphenous, Transesophageal Echocardiogram, Mitral Valve Replacement, CABG w Mitral Valve 09/04/18 17:55:27 Windows Server Support Technician: ELISABETH Modifier: LINWOODSKELSIE 1 <*> Procedure Coronary Artery Bypass Graft, Vein [place] Endosaphenous, Transesophageal Echocardiogram, Mitral Valve Replacement, CABG w Mitral Valve 2 <*> Procedure Coronary Artery Bypass Graft, Vein [place] Endosaphenous, Transesophageal Echocardiogram, Mitral Valve Replacement, CABG w Mitral Valve 3 <*> Procedure Coronary Artery Bypass Graft, Vein [place] Endosaphenous, Transesophageal Echocardiogram, Mitral Valve Replacement, CABG w Mitral Valve 4 <*> Procedure Coronary Artery Bypass Graft, Vein [place] Endosaphenous, Transesophageal Echocardiogram, Mitral Valve Replacement, CABG w Mitral Valve 5 <*> Procedure Coronary Artery Bypass Graft, Vein [place] Endosaphenous, Transesophageal Echocardiogram, Mitral Valve Replacement, CABG w Mitral Valve 6 <*> Procedure Coronary Artery Bypass Graft, Vein [place] Endosaphenous, Transesophageal Echocardiogram, Mitral Valve Replacement, CABG w Mitral Valve 7 <*> Procedure Coronary Artery Bypass Graft, Vein [place] Endosaphenous, Transesophageal Echocardiogram, Mitral Valve Replacement, CABG w Mitral Valve 09/04/18 17:52:39 Windows Server Support Technician: ELISABETH Modifier: [email or web address] 1 <*> Procedure Coronary Artery Bypass Graft, Vein [place] Endosaphenous, Transesophageal Echocardiogram, Mitral Valve Replacement 2 <*> Procedure Coronary Artery Bypass Graft, Vein [place] Endosaphenous, Transesophageal Echocardiogram, Mitral Valve Replacement 3 <*> Procedure Coronary Artery Bypass Graft, Vein [place] Endosaphenous, Transesophageal Echocardiogram, Mitral Valve Replacement 4 <*> Procedure Coronary Artery Bypass Graft, Vein [place] Endosaphenous, Transesophageal Echocardiogram, Mitral Valve Replacement 5 <*> Procedure Coronary Artery Bypass Graft, Vein [place] Endosaphenous, Transesophageal Echocardiogram, Mitral Valve Replacement 6 <*> Procedure Coronary Artery Bypass Graft, Vein [place] Endosaphenous, Transesophageal Echocardiogram, Mitral Valve Replacement 7 <*> Procedure Coronary Artery Bypass Graft, Vein [place] Endosaphenous, Transesophageal Echocardiogram, Mitral Valve Replacement 09/04/18 17:46:43 Windows Server Support Technician: ELISABETH Modifier: ELISABETH 1 <*> Procedure Coronary Artery Bypass Graft, Vein [place] Plain Endosaphenous, Transesophageal Echocardiogram, Mitral Valve Replacement 2 <+> Time In 2 <*> Procedure Coronary Artery Bypass Graft, Vein [place] Endosaphenous, Transesophageal Echocardiogram, Mitral Valve Replacement 3 <+> Time In 3 <*> Procedure Coronary Artery Bypass Graft, Vein [place] Endosaphenous, Transesophageal Echocardiogram, Mitral Valve Replacement 4 <+> Time In 4 <*> Procedure Coronary Artery Bypass Graft, Vein [place] Endosaphenous, Transesophageal Echocardiogram, Mitral Valve Replacement 5 <+> Time In 5 <*> Procedure Coronary Artery Bypass Graft, Vein [place] Endosaphenous, Transesophageal Echocardiogram, Mitral Valve Replacement 6 <+> Time In 6 <*> Procedure Coronary Artery Bypass Graft, Vein [place] Endosaphenous, Transesophageal Echocardiogram, Mitral Valve Replacement 7 <+> Time In 7 <*> Procedure Coronary Artery Bypass Graft, Vein [place] Endosaphenous, Transesophageal Echocardiogram, Mitral Valve Replacement 09/04/18 17:44:04 Windows Server Support Technician: ELISABETH Modifier: ELISABETH <+> 1 Procedure <+> [...] <+> 7 Role Performed <+> 7 Procedure [facility] IntraOp Case Times Entry 1 Patient In Room Time 09/04/18 16:52:00 Out Room Time 09/04/18 23:06:00 Anesthesia Start Time 09/04/18 16:52:00 Stop Time 09/04/18 23:06:00 Surgery / Procedure Times Start Time 09/04/18 17:35:00 Stop Time 09/04/18 22:58:00 Last Modified By: CECI THOMAS 09/04/18 23:06:34 [facility] IntraOp Case Times Audit 09/04/18 23:06:34 Windows Server Support Technician: LOUKELSIE Modifier: [email or web address] <+> 1 Out Room Time <+> 1 Stop Time <+> 1 Stop Time 09/04/18 17:37:35 Windows Server Support Technician: ELISABETH Modifier: ELISABETH <+> 1 Start Time [facility] IntraOp Cautery Entry 1 Entry 2 ESU Identification Cautery Type Monopolar ESU Monopolar ESU Cautery Type Comments ID Number [id number] ID Type Hospital Number Hospital Number Cautery [...] Pref Card Builder 09/04/18 17:47:32 09/04/18 17:47:32 [facility] IntraOp Communication Entry 1 Entry 2 Entry [...] [facility] Pref Card Builder 09/04/18 20:16:18 [facility] IntraOp Communication Audit 09/04/18 22:43:37 Windows Server Support Technician: ELISABETH Modifier: [email or web address] <+> 10 Communication By <+> 10 Communication To <+> 10 Comment 09/04/18 22:21:45 Windows Server Support Technician: ELISABETH Modifier: LINWOODSJE <+> 7 Date and Time <+> 8 Date and Time 09/04/18 21:30:14 Windows Server Support Technician: LINWOODSKELSIE Modifier: [email or web address] <+> 5 Date and Time <+> 6 Date and Time 09/04/18 20:16:18 Windows Server Support Technician: LINWOODSKELSIE Modifier: LINWOODSJE <+> 9 Communication By <+> 9 Date and Time <+> 9 Communication To <+> 9 Comment 09/04/18 18:44:47 Windows Server Support Technician: ELISABETH Modifier: LINWOODSKELSIE 2 <*> Comment FAMILY NOT IN WAITING ROOM <+> 3 Date and Time <+> 4 Date and Time 09/04/18 17:48:57 Windows Server Support Technician: ELISABETH Modifier: [email or web address] <+> 1 Communication By [...] <+> 8 Communication To <+> 8 Comment [facility] IntraOp Counts Verification Entry 1 Entry 2 Procedure Vein Cherry Plain Vein [place] Plain Endosaphenous, Endosaphenous, Transesophageal Transesophageal Echocardiogram, CABG w [...] 09/04/18 Pref Card Builder 22:27:41 09/04/18 17:55:50 [facility] IntraOp Counts Verification Audit 09/04/18 22:27:41 Windows Server Support Technician: ELISABETH Modifier: ADELITA 2 <*> Procedure Vein Cherry Plain Endosaphenous, Transesophageal Echocardiogram, CABG w Mitral Valve 2 <+> Count Performed By (Scrub) 2 <+> Count Performed By (RN) 09/04/18 17:55:50 Windows Server Support Technician: ELISABETH Modifier: [email or web address] 1 <*> Procedure Vein [place] Endosaphenous, Transesophageal Echocardiogram, Mitral Valve Replacement, CABG w Mitral Valve 2 <*> Procedure Vein [place] Endosaphenous, Transesophageal Echocardiogram, Mitral Valve Replacement, CABG w Mitral Valve 09/04/18 17:55:28 Windows Server Support Technician: ELISABETH Modifier: ISAIIMESJE 1 <*> Procedure Coronary Artery Bypass Graft, Vein [place] Endosaphenous, Transesophageal Echocardiogram, Mitral Valve Replacement, CABG w Mitral Valve 2 <*> Procedure Coronary Artery Bypass Graft, Vein [place] Endosaphenous, Transesophageal Echocardiogram, Mitral Valve Replacement, CABG w Mitral Valve 09/04/18 17:52:41 Windows Server Support Technician: ELISABETH Modifier: ISAIIMESJE 1 <*> Procedure Coronary Artery Bypass Graft, Vein [place] Endosaphenous, Transesophageal Echocardiogram, Mitral Valve Replacement 2 <*> Procedure Coronary Artery Bypass Graft, Vein [place] Endosaphenous, Transesophageal Echocardiogram, Mitral Valve Replacement [facility] IntraOp Counts Final Entry 1 Procedure Vein [place] Endosaphenous, Transesophageal Echocardiogram, CABG w Mitral Valve Final Count Info Count Type Sponge, Sharps, Miscellaneous Counts Verification Skin Closure/end of Sequence procedure Count Results Correct, surgeon notified Counts Performed By Count Performed By Ilsa Mcclelland ST (Scrub) Count Performed By CECI THOMAS (RN) Last Modified By: CECI THOMAS 09/04/18 22:43:57 [facility] IntraOp Counts Final Audit 09/04/18 22:43:57 Windows Server Support Technician: ELISABETH Modifier: ADELITA 1 <*> Procedure Vein [place] Plain Endosaphenous, Transesophageal Echocardiogram, CABG w Mitral Valve 1 <+> Count Performed By (Scrub) 1 <+> Count Performed By (RN) 09/04/18 17:55:51 Windows Server Support Technician: ELISABETH Modifier: ELISABETH 1 <*> Procedure Vein [place] Endosaphenous, Transesophageal Echocardiogram, Mitral Valve Replacement, CABG w Mitral Valve 09/04/18 17:55:29 Windows Server Support Technician: ELISABETH Modifier: ELISABETH 1 <*> Procedure Coronary Artery Bypass Graft, Vein [place] Endosaphenous, Transesophageal Echocardiogram, Mitral Valve Replacement, CABG w Mitral Valve 09/04/18 17:52:44 Windows Server Support Technician: ELISABETH Modifier: ELISABETH 1 <*> Procedure Coronary Artery Bypass Graft, Vein [place] Endosaphenous, Transesophageal Echocardiogram, Mitral Valve Replacement [facility] IntraOp Departure from OR Entry 1 Integumentary Assessment Integumentary WDL Assessment WDL Transfer/Handoff Transfer to ICU - Cardiovascular Handoff Method Bedside/Face to face Post-op Transport Bed (including Via specialty) Patient Transport MARTY SOLOMON MD, Accompanied by Silver Bonilla, vocal music teacher, CARLO JARRETT PA Transfer/Handoff CTVU UPDATED THROUGHOUT Comments CASE Last Modified By: [facility] Pref Card Builder 09/04/18 17:49:40 [facility] IntraOp Drains and Tubes Entry 1 Entry [...] Builder 09/04/18 17:49:45 09/04/18 17:49:45 09/04/18 20:54:53 [facility] IntraOp Drains and Tubes Audit 09/04/18 20:54:53 Windows Server Support Technician: ELISABETH Modifier: ELISABETH <+> 3 Device Type <+> 3 Drain/Tube Activity <+> 3 Device Location <+> 3 Method of Drainage <+> 3 Tube Dressing Condition <+> 3 Size <+> 3 Chest Tubes Connectivity [facility] IntraOp Dressing and Packing Entry 1 Entry 2 Type Dressing Dressing Location Chest Operative leg Wound Dressing Item 4x4's Ben Wound Packing Type Tape Type Supplemental Applications Applied By Other Comments Soft cloth paper tape Last Modified By: [facility] Grimes, Jennifer, [facility] Pref Card Builder Pref Card Builder 09/04/18 17:49:50 09/04/18 17:49:50 [facility] IntraOp Fire Risk Assessment Entry 1 Fire [...] [facility] Pref Card Builder 09/04/18 17:50:01 [facility] IntraOp General Case Medical Receptionist Medical Assistant 1 Case Information OR OR 11 [facility] Case Level 2 Room Verified Yes Wound Class I - Clean Specialty SN Cardio Thoracic Anesthesia Type General ASA Class 4 Diagnosis Preop Diagnosis CAD Postop Same As Preop Yes Postop Diagnosis CAD Last Modified By: [facility] Pref Card Builder 09/04/18 17:50:12 [facility] IntraOp Implant Log Entry 1 Entry 2 Type Implant (Synthetic) Implant (Synthetic) Implant Log Implant Type Marker Valve(s) Tissue Implant Type Implant MARKER [facility] [id number] Identification [id number] Description Implant Quantity 1 1 Implant Site [employer] Implant Identification Model Number Implant [id number] Identification Serial Number Implant [id number] Identification Lot Number Implant Medtronic:Card Surg:Tech Identification Insurance Solicitor Name: Implant [id number] Identification Catalog Number Implant Size Implant Has an Yes Yes Expiration Date Implant Expiration 08/16/20 03/07/23 Date Wasted Radioactive Material Time Implanted Tissue Implant Continue for Tissue Implant Documentation Tissue Identification Number Graft Prep Per Insurance Solicitor Instructions: Tissue Preparation Method: Reconstitution Solution: Reconstitution Solution Lot Number Reconstitution Solution Expiration Date: Thawing Solution Thawing Solution Lot Number Thawing Solution Expiration Date Preparation Materials, Other Preparation Materials, Other Lot Number Preparation Materials, Other Expiration Date Tissue Prepared/Processed By Insurance Solicitor Paperwork Completed Implant Type Comment Last Modified By: [facility] Grimes, Jennifer, [facility] Pref Card Builder Pref Card Builder 09/04/18 17:59:36 09/04/18 20:18:21 [facility] IntraOp Implant Log Audit 09/04/18 20:18:21 Windows Server Support Technician: ELISABETH Modifier: ELISABETH <+> 2 Implant Identification Description <+> 2 Implant Identification Serial Number <+> 2 Implant Identification Insurance Solicitor Name: <+> 2 Implant Expiration Date <+> 2 Implant Site <+> 2 Implant Quantity <+> 2 Implant Identification Catalog Number <+> 2 Implant Type <+> 2 Implant Has an Expiration Date <+> 2 Type [facility] IntraOp Intraoperative Assessment Entry 1 Handoff Method [...] [facility] Pref Card Builder 09/04/18 17:50:19 [facility] IntraOp Intraoperative Equipment Entry 1 Equipment Intraop Monitoring Electrocardiogram Five lead placement (ECG) Electrode Placement Blood Pressure Non-Invasive BP Device Source Blood Pressure Arm, right upper Location Pulse Oximeter Hand, left Probe Site Antiembolic Devices Scopes Photo/Video Documentation Last Modified By: [facility] Pref Card Builder 09/04/18 17:50:23 [facility] IntraOp Medication Admin Entry 1 Entry 2 Entry 3 Medication/Irrigant Ancef 1Gm advantage papverine HCL 30mg/ml COMBO heparinized vial - [id number] 10ml - [id number] Lactated Ringers 1000units/100ml - [id number] Combo Med List Time Administered Route of [...] Builder 09/04/18 17:50:44 09/04/18 17:50:44 09/04/18 17:50:44 [facility] IntraOp Patient Positioning Entry 1 Procedure Vein [place] Plain Endosaphenous, Transesophageal Echocardiogram, CABG w Mitral Valve [...] [facility] Pref Card Builder 09/04/18 17:55:50 [facility] IntraOp Patient Positioning Audit 09/04/18 17:55:50 Windows Server Support Technician: ELISABETH Modifier: ELISABETH 1 <*> Procedure Vein [place] Endosaphenous, Transesophageal Echocardiogram, Mitral Valve Replacement, CABG w Mitral Valve 09/04/18 17:55:28 Windows Server Support Technician: ELISABETH Modifier: LINWOODSKELSIE 1 <*> Procedure Coronary Artery Bypass Graft, Vein [place] Endosaphenous, Transesophageal Echocardiogram, Mitral Valve Replacement, CABG w Mitral Valve 09/04/18 17:52:42 Windows Server Support Technician: ELISABETH Modifier: LINWOODSKELSIE 1 <*> Procedure Coronary Artery Bypass Graft, Vein [place] Endosaphenous, Transesophageal Echocardiogram, Mitral Valve Replacement [facility] IntraOp Sign In Entry 1 Patient, Site, [...] [facility] Pref Card Builder 09/04/18 17:50:54 [facility] IntraOp Sign Out Entry 1 RN Confirmation [...] Last Modified By: CECI THOMAS 09/04/18 22:44:07 [facility] IntraOp Sign Out Audit 09/04/18 22:44:07 Windows Server Support Technician: ELISABETH Modifier: ADELITA <+> 1 RN Sign Out Signature Date/Time 09/04/18 22:25:13 Windows Server Support Technician: ELISABETH Modifier: ELISABETH 1 <*> RN Sign Out Signature [facility] Pref Card Builder [facility] IntraOp Skin Prep Entry 1 Procedure Vein Cherry Plain Endosaphenous, Transesophageal Echocardiogram, CABG w Mitral Valve Prescribed Yes Pre-Surgical Prep Completed Prep Area Chin to toes, legs circumferentially Intraop Prep Integumentary WDL Assessment WDL Patients Normal WDL Integumentary Variance(s) Prep Agents Chloraprep Prep by [facility] Pref Card Builder Hair Removal Last Modified By: [facility] Pref Card Builder 09/04/18 17:55:50 [facility] IntraOp Skin Prep Audit 09/04/18 17:55:50 Windows Server Support Technician: ELISABETH Modifier: LINWOODSKELSIE 1 <*> Procedure Vein [place] Endosaphenous, Transesophageal Echocardiogram, Mitral Valve Replacement, CABG w Mitral Valve 09/04/18 17:55:28 Windows Server Support Technician: LINWOODSKELSIE Modifier: LINWOODSKELSIE 1 <*> Procedure Coronary Artery Bypass Graft, Vein [place] Endosaphenous, Transesophageal Echocardiogram, Mitral Valve Replacement, CABG w Mitral Valve 09/04/18 17:52:43 Windows Server Support Technician: ISAIBRONWYNKingaKELSIE Modifier: LINWOODSKELSIE 1 <*> Procedure Coronary Artery Bypass Graft, Vein [place] Endosaphenous, Transesophageal Echocardiogram, Mitral Valve Replacement [facility] IntraOp Surgical Procedures Entry 1 Entry 2 Entry 3 Procedure Vein [place] Transesophageal CABG w Mitral Valve Endosaphenous Echocardiogram [...] 09/04/18 CECI THOMAS 09/04/18 23:06:37 23:06:37 23:06:37 [facility] IntraOp Surgical Procedures Audit 09/04/18 23:06:37 Windows Server Support Technician: ELISABETH Modifier: ADELITA <+> 1 Stop <+> 2 Stop <+> 3 Stop 09/04/18 17:56:36 Windows Server Support Technician: ISAIBRONWYNKingaKELSIE Modifier: LINWOODSKELSIE Entry 1 was deleted. [...] MITRAL VALVE REPAIR 2 <*> Procedure Vein [place] Endosaphenous 2 <*> Primary Procedure No 2 [...] - Clean <-> 4 Anesthesia Type General [facility] IntraOp Temp Regulation Devices Entry 1 Entry [...] Out Entry 1 Procedure to be Vein Cherry Plain Performed Endosaphenous, Transesophageal Echocardiogram, CABG w Mitral [...] is present, Performed Electronically signed by Destiny [facility] Conversion Button Cutting Machine Operator Cerner at 07/05/2022 8:42 PM CDT documented in this encounter Plan of Treatment Not on file documented as of this encounter Visit Diagnoses Not on filedocumented in this encounter Care Teams Harvesting Contractor Relationship Specialty Start Date End Date Martinez Canseco MD [address] [place] [address] PCP - General Family Medicine 10/05/22 documented as of this encounter
--- OUTSIDE RECORDS SUMMARY | 2025-01-01 09:00 | XMS_ITS | Encounter Summary ---
Author Organization [employer] ([place], [place], [place], [place]) Address [address] [place] [address] Care Team Providers Care Package Center Supervisor Name Role Phone Martinez Canseco MD Primary Care Provider [phone] Encounter Details Date Type Department Care Team (Late st Contact Info) Description 09/07/2018 Transcribed Document [facility] [place] [address] [place] [address] ProviderIvan MD [address], [place] [address] Social History Tobacco Use Types Packs/Day Years [...] : 09/05/2018 00:00 Atherosclerotic heart disease of [place] coronary artery without angina pectoris 09/05/2018 00:00 [...] PARK SOLIZ COTA - 09/12/2018 14:52 EDT Assisted Goals, OT Grooming LTG Grid Goal #1 [...] Client stood with gaitbelt and RW at NE. Walked to waiting area and sat. Client desat 78%. Required 4 mins to return to 90%. Client walked back to room. Sat EOB. Desat to 78%. Client NE to supine. HOB elevated. O2 increase to [...] on filedocumented in this encounter Care Teams Package Center Supervisor Relationship Specialty Start Date End Date Martinez Canseco MD [address] [place], [place] [id number] PCP - General Family Medicine 10/05/22 documented as of this encounter
--- OUTSIDE RECORDS SUMMARY | 2025-01-01 09:00 | XMS_ITS | Encounter Summary ---
Author Organization [employer] ([place], [place], [place], [place]) Address [address] [place] [address] Care Team Providers Care Skiver Hand Name Role Phone Martinez Gutierrez MD Primary Care Provider Encounter Details Date Type Department Care Team (Late st Contact Info) Description 09/13/2018 Transcribed Document [facility] [place] Family Medicine [address] [place] [address] ProviderIvan MD [address] [place] [address] Social History Tobacco Use Types [...] Nino MD - 09/13/2018 12:33 PM CDT [facility] [place] [address] TARAIZABELLA MENA :1950 Visit Time:09/02/2018 Your Visit Summary Your Care Team Admitting Physician - ESVIN BUTTS MD-CAT Attending Physician - ESVIN BUTTS MD-CAT Primary Care Physician - YUMI, UNKNOWN Referring Physician - YUMI, UNKNOWN Your Diagnosis Alcohol use 3 beers daily Atherosclerotic heart disease of [place] coronary artery without angina pectoris, Atherosclerotic heart disease of [place] coronary artery without angina pectoris, CAD (coronary artery disease), [place] coronary artery, CAD (coronary artery disease), [place] coronary artery Diverticulitis with history of colostomy and recent colostomy reversal HLD (hyperlipidemia) HTN (hypertension) Nicotine dependence with withdrawal Recent Pneumonia Severe COPD and emphysematous lungs Severe mitral regurgitation, Severe mitral regurgitation Unstable angina Discharge Vitals Temperature 36.3 ??C Heart Rate (Monitored) 109 Respiratory Rate 18 Blood Pressure 94/62 What to do next Instructions From Your Care Team Rehabilitation: [facility] Nurse can Call report to [phone] Discharge Summary: fax to [phone] Transportation: Brother will transport [facility] [...] Comments Appointment has been made Where: [address] [place] [address]- [phone] Follow Up with ESVIN BUTTS When 09/24/2018 01:15 AM EDT Comments Appointment has been made Where: [address] [place] [address]- Business (1) Follow Up with MARTINEZ GUTIERREZ (KRIS) Viri When Within 1 week Comments after discharge from Rehab Where: [address] [place] [address]- , Follow Up with [facility] Cardiac [facility]hab When Within 6 weeks Comments Office to call with appoint/instructions Where: [phone] Medications What How Much When Instructions Next [...] use an oxygen concentrator: ? Tell your CPUsage. Make sure you are given priority service [...] 05/25/2004 Document Revised: 11/01/2016 Document Reviewed: 09/26/2016 [employer] Interactive Patient Education ?? 2019 Home Inns. Incentive Spirometer An incentive spirometer is a [...] 07/16/2007 Document Revised: 11/27/2016 Document Reviewed: 10/12/2014 [employer] Interactive Patient Education ?? 2018 Home Inns. Hypertension Hypertension is another name for high [...] doctor. This is important. Medicines ??? Take tomi-yks-mldljyn and prescription medicines only as told by [...] 08/21/2008 Document Revised: 01/31/2017 Document Reviewed: 01/31/2017 [employer] Interactive Patient Education ?? 2019 Home Inns. Heart-Healthy Eating Plan Many factors influence your [...] foods can I eat? Grains Breads, including Bulgarian, white, carolyn, wheat, raisin, rye, oatmeal, and Bahamian. Tortillas that are neither fried nor made with lard or trans fat. Low-fat rolls, including hotdog and hamburger buns and Greenlandic muffins. Biscuits. Muffins. Waffles. Pancakes. Light popcorn. Whole-grain cereals. Flatbread. [place] toast. Pretzels. Breadsticks. Rusks. Low-fat snacks and [...] baking, salads, and as spreads. Other [place] powder. Coffee and tea. All seasonings and [...] cheese. Whole milk cheeses, including blue (shawnee), [place], Brie, Mark, Azerbaijani, Havarti, Guatemalan, cheddar, Camembert, and Marshall. Whole or 2% milk that is liquid, [...] has suet, meat fat, or shortening. [place] butter, hydrogenated oils, palm oil, coconut oil, [...] 12/12/2008 Document Revised: 09/22/2016 Document Reviewed: 08/27/2014 [employer] Interactive Patient Education ?? 2019 Home Inns. Coronary Artery Bypass Grafting, Care After This sheet gives you information about how to care for yourself after your procedure. Your doctor may also give you more specific instructions. If you have problems or questions, contact your doctor. Follow these instructions at home: Medicines ??? Take hhiz-ljc-chzzaoi and prescription medicines only as told by [...] cannot use soap and water, use hand vineyard supervisor. ? Change your dressing as told [...] 03/10/2014 Document Revised: 04/17/2017 Document Reviewed: 04/17/2017 [employer] Interactive Patient Education ?? 2019 [employer]. acetaminophen and oxycodone (a SEET a [...] may report side effects to FDA at 8-694-BCP-8838. What other drugs will affect acetaminophen and [...] affect acetaminophen and oxycodone, including prescription and uuhp-pqg-gktlzeo medicines, vitamins, and herbal products. Not all [...] to ensure that the information provided by [employer]. ('Multum') is accurate, up-to-date, and complete, but no guarantee is made to that effect. Drug information contained herein may be time sensitive. Pureshield information has been compiled for use by healthcare practitioners and consumers in the [place] and therefore [employer] does not warrant that uses outside of the [place] are appropriate, unless specifically indicated otherwise. Multum's drug information does not endorse drugs, diagnose patients or recommend therapy. Netviewer drug information is an informational resource designed [...] effective or appropriate for any given patient. [facility] does not assume any responsibility for any aspect of healthcare administered with the aid of information [facility] provides. The information contained herein is not intended to cover all possible uses, directions, precautions, warnings, drug interactions, allergic reactions, or adverse effects. If you have questions about the drugs you are taking, check with your doctor, nurse or pharmacist. Copyright 8993-4403 [employer]. Version: 18.02. Revision Date: 02/13/2018.clopidogrel (kloe PID [...] may report side effects to FDA at 2-688-QVH-3150. What other drugs will affect clopidogrel? Certain other medicines may increase your risk of bleeding, including aspirin. Avoid taking aspirin unless your doctor tells you to. Tell your doctor about all your other medicines, especially: ? any other medicines to treat or prevent blood clots; ?? a stomach acid animal behaviorist such as omeprazole, Nexium, or Prilosec; ?? an antidepressant; ?? an opioid medication; ?? a blood thinner--warfarin, Coumadin, Jantoven; or ?? NSAIDs (nonsteroidal anti-inflammatory drugs)--ibuprofen (Advil, Motrin), naproxen (Aleve), celecoxib, diclofenac, indomethacin, meloxicam, and others. This list is not complete. Other drugs may affect clopidogrel, including prescription and fdqp-hyt-eglcbip medicines, vitamins, and herbal products. Not all [...] to ensure that the information provided by [employer]. ('Multum') is accurate, up-to-date, and complete, but no guarantee is made to that effect. Drug information contained herein may be time sensitive. Multum information has been compiled for use by healthcare practitioners and consumers in the [place] and therefore [employer] does not warrant that uses outside of the [place] are appropriate, unless specifically indicated otherwise. [employer]s drug information does not endorse drugs, diagnose patients or recommend therapy. [employer]Ref[employer]s drug information is an informational resource designed [...] effective or appropriate for any given patient. [facility] does not assume any responsibility for any aspect of healthcare administered with the aid of information [facility] provides. The information contained herein is not intended to cover all possible uses, directions, precautions, warnings, drug interactions, allergic reactions, or adverse effects. If you have questions about the drugs you are taking, check with your doctor, nurse or pharmacist. Copyright 4633-6984 [employer]. Version: 15.01. Revision Date: 01/07/2018. Emergency Awareness [...] Assistance with quitting is available by contacting 2-676-XEKP-NOW. This is a free resource providing counseling, [...] range between ( 0.0 and 7.0 ) Hart #: 0.72 K/uL -- Normal range between ( 0.16 and 1.00 ) Eos #: 0.02 x10(3)/uL -- Normal range between ( 0.00 and 0.80 ) Hart %: 6.9 % -- Normal range between [...] RBC Morphology: Normal ANC #: 6 K/uL Hart Percent Man: 8 % -- Normal range [...] Result Blood Bank Electronically signed by Destiny [facility] Conversion Special Education Teaching Assistant Cerner at 07/05/2022 8:33 PM CDT documented in this encounter Plan of Treatment Not on file documented as of this encounter Visit Diagnoses Not on filedocumented in this encounter Care Teams Skiver Hand Relationship Specialty Start Date End Date Martinez Gutierrez MD [address] [place] [address] PCP - General Family Medicine 10/05/22 documented as of this encounter
--- OUTSIDE RECORDS SUMMARY | 2025-01-01 09:00 | XMS_ITS | Encounter Summary ---
Author Organization [employer] ([place], [place], [place], [place]) Address [address] [place] [address] Care Team Providers Care Mine Expert Name Role Phone Martinez Canseco MD Primary Care Provider [phone] Encounter Details Date Type Department Care Team (Late st Contact Info) Description 09/13/2018 Transcribed Document [facility] [place] [address] [place] [address] ProviderIvan MD [address] [place], [place] [address] Social History Tobacco Use Types Packs/Day Years [...] on filedocumented in this encounter Care Teams Mine Expert Relationship Specialty Start Date End Date Martinez Canseco MD [address] [place] [address] PCP - General Family Medicine 10/05/22 documented as of this encounter
--- OUTSIDE RECORDS SUMMARY | 2025-01-01 09:00 | XMS_ITS | Encounter Summary ---
Author Organization [employer] ([place], [place], [place], [place]) Address [address] [place] [address] Care Team Providers Care Metal Can Inspector Name Role Phone Martinez Canseco MD Primary Care Provider [phone] Encounter Details Date Type Department Care Team (Late st Contact Info) Description 09/13/2018 Transcribed Document [facility] [place] [address] [place] [address] ProviderIvan MD [address] [place] [address] Social History Tobacco Use Types Packs/Day Years [...] On: 09/13/2018 9:47 EDT by BIRGIT [employer] Electric Golf Cart Repairers Final Discharge Planning Discharge Arrangements : Patient Post-Acute Information Patient Name: AUGUSTO PACHECO Gender: Male : [birth year] Age: 67 Years [place] Referral(s): Service: Organization: Business Address: Phone Number: Acute Rehab [facility] [address] [facility] , [place], [address] Important Medicare Message Reviewed With : Patient Important Medicare Message Reviewed D/T : 09/13/2018 9:30 EDT Transportation Needs : Family/Friend Discharge Transportation Arrangement Cmt : [facility] will transport to facility Follow Up Appointment Scheduled : Yes Patient/Family Notified of Plan : Yes Patient/Family Notified : Daryl Loza. Discharge To Care Management : IRF -Inpatient Rehabilitation Facility-[facility] BIRGIT [employer]aire[employer] - 09/13/2018 9:47 EDT Final Narrative Note Final Narrative Note : Continue to follow for discharge needs and arrangements, chart reviewed, patient to discharge and transfer to [facility] (loc=acute rehab) today. Patient to be transported via brother, who is at bedside, portable O2 for transport to be delivered to bedside via [facility]. RN report to be called to [phone], DC summary to be faxed to [phone]. Pt, RN and family aware and in agreement with plan. B[employer]aire[employer] - 09/13/2018 9:47 EDT Electronically signed by Destiny [facility] Conversion Reimbursement Representative Cerner at 07/05/2022 8:34 PM CDT documented in this encounter Plan of Treatment Not on file documented as of this encounter Visit Diagnoses Not on filedocumented in this encounter Care Teams Metal Can Inspector Relationship Specialty Start Date End Date Martinez Canseco MD [address] [place] [address] PCP - General Family Medicine 10/05/22 documented as of this encounter
--- OUTSIDE RECORDS SUMMARY | 2025-01-01 09:00 | XMS_ITS | Encounter Summary ---
Author Organization [employer] ([place], [place], [place], [place]) Address [address] [place] [address] Care Team Providers Care Director Of Physiotherapy Services Name Role Phone Martinez Canseco MD Primary Care Provider [phone] Encounter Details Date Type Department Care Team (Late st Contact Info) Description 09/07/2018 Transcribed Document [facility] [place] [address] [place] [address] ProviderIvan MD [address] [place], [place] [address] Social History Tobacco Use Types Packs/Day Years [...] : 09/05/2018 00:00 Atherosclerotic heart disease of [place] coronary artery without angina pectoris 09/05/2018 00:00 [...] 14:21 Co-treated by, PT : Occupational Therapist, small engine technician/aide Personal Devices : Personal Devices No [...] LEONELA SOUZA, PT - 09/10/2018 15:36 EDT Skilled Nursing Goals Mobility/Bed Mobility LTG PT Grid Goal [...] 09/10/2018 15:36 EDT Electronically signed by Destiny [facility] Conversion Oracle Solutions Architect Cerner at 07/05/2022 8:52 PM CDT documented in this encounter Plan of Treatment Not on file documented as of this encounter Visit Diagnoses Not on filedocumented in this encounter Care Teams Director Of Physiotherapy Services Relationship Specialty Start Date End Date Martinez Canseco MD [address] [place], [place] [id number] PCP - General Family Medicine 10/05/22 documented as of this encounter
--- OUTSIDE RECORDS SUMMARY | 2025-01-01 09:00 | XMS_ITS | Encounter Summary ---
Author Organization [employer] ([place], [place], [place], [place]) Address [address] [place] [address] Care Team Providers Care Electrical Subcontractor Name Role Phone Martinez Canseco MD Primary Care Provider [phone] Encounter Details Date Type Department Care Team (Late st Contact Info) Description 09/13/2018 Transcribed Document [facility] [place] [address] [place] [address] ProviderIvan MD [address] [place] [address] Social History Tobacco Use Types [...] 09/13/2018 12:32 PM CDT Clarissa Soto M.D. [address] [place] [address] [place] [address] Re: AUGUSTO PACHECO Date of Visit: 09/02/2018 [...] contents is strictly prohibited. Sincerely, ANGELINE JAY [address] [place] [address] The following document(s) were included in the letter: September 13, 2018 11:55:00 EDT - (09/13/2018) DISCHARGE SUMMARY documented in this encounter Plan of Treatment Not on file documented as of this encounter Visit Diagnoses Not on filedocumented in this encounter Care Teams Electrical Subcontractor Relationship Specialty Start Date End Date Martinez Canseco MD [address] [place] [address] PCP - General Family Medicine 10/05/22 documented as of this encounter
--- OUTSIDE RECORDS SUMMARY | 2025-01-01 09:00 | XMS_ITS | Encounter Summary ---
Author Organization [employer] ([place], [place], [place], [place]) Address [address] [place] [address] Care Team Providers Care Computer Lab Aide Name Role Phone Martinez Canseco MD Primary Care Provider [phone] Encounter Details Date Type Department Care Team (Late st Contact Info) Description 09/07/2018 Transcribed Document [facility] [place] [address] [place] [address] ProviderIvan MD [address] [place] [address] Social History Tobacco Use Types [...] filedocumented in this encounter Care Teams Computer Lab Aide Relationship Specialty Start Date End Date Martinez Canseco MD [address] [place] [address] PCP - General Family Medicine 10/05/22 documented as of this encounter
--- OUTSIDE RECORDS SUMMARY | 2025-01-01 09:00 | XMS_ITS | Encounter Summary ---
Author Organization [employer] ([place], [place], [place], [place]) Address [address] [place] [address] Care Team Providers Care Registration Representative Name Role Phone Martinez Canseco MD Primary Care Provider [phone] Encounter Details Date Type Department Care Team (Late st Contact Info) Description 09/04/2018 Transcribed Document [facility] [place] [address] [place] [address] ProviderIvan MD [address] [place] [address] Social History Tobacco Use Types Packs/Day Years [...] On: 09/04/2018 10:15 EDT by KYLIE LARIOS, EDUARDO-Electrical Superintendent Initial Assessment I Previously Documented Living Environment [...] Patient's Home Caregiver Medical Durable Power of Sheet Metal Installer Name : No Legal Guardian : No Is Guardianship Needed : No KYLIE LARIOS RN-Electrical Superintendent - 09/04/2018 10:15 EDT Initial Assessment II Sensory and Motor Deficits : None Current Home Treatments and Equipment : None Does the Patient have a Floor to SNF Benefit? : Yes KYLIE LARIOS RN-Electrical Superintendent - 09/04/2018 10:15 EDT Discharge Needs I Anticipated Discharge Date : 09/08/2018 EDT Anticipated Discharge To, CM : Home independently, Home with family care Current Home Treatment/Equipment : Current Home Treatment/Equipment No qualifying data available. Post Acute/Home Treatments : None KYLIE LARIOS RN-Electrical Superintendent - 09/04/2018 10:15 EDT Discharge Needs II Professional Skilled Services : Professional Skilled Services No qualifying data available. Needs Assistance with Transportation : No Discharge Options Discussed with Patient : DME, Home Health KYLIE LARIOS RN-Electrical Superintendent - 09/04/2018 10:15 EDT Narrative Note Narrative Note : For CABG 09/04. Will transfer to critical care unit then back to [facility]. he is open to cardiac rehab. Discussed potential need for DME(o2) and HH. Will reassess need after procedure. KYLIE LARIOS RN-Electrical Superintendent - 09/04/2018 10:15 EDT documented in this encounter Plan of Treatment Not on file documented as of this encounter Visit Diagnoses Not on filedocumented in this encounter Care Teams Registration Representative Relationship Specialty Start Date End Date Martinez Canseco MD [address] [place] [address] PCP - General Family Medicine 10/05/22 documented as of this encounter
--- OUTSIDE RECORDS SUMMARY | 2025-01-01 09:00 | XMS_ITS | Encounter Summary ---
Author Organization [employer] ([place], [place], [place], [place]) Address [address] [place] [address] Care Team Providers Care Sample Washer Name Role Phone Martinez Canseco MD Primary Care Provider [phone] Encounter Details Date Type Department Care Team (Late st Contact Info) Description 09/06/2018 Transcribed Document [facility] [place] Family Medicine [address] [place] [address] ProviderIvan MD [address] [place], [place] [address] Social History Tobacco Use Types Packs/Day Years [...] 09/06/2018 20:46 EDT Electronically signed by Destiny [facility] Conversion Federal Law Clerk Cerner at 07/05/2022 8:48 PM CDT documented in this encounter Plan of Treatment Not on file documented as of this encounter Visit Diagnoses Not on filedocumented in this encounter Care Teams Sample Washer Relationship Specialty Start Date End Date Martinez Canseco MD [address] [place], [place] [id number] PCP - General Family Medicine 10/05/22 documented as of this encounter
--- OUTSIDE RECORDS SUMMARY | 2025-01-01 09:00 | XMS_ITS | Encounter Summary ---
Author Organization [employer] ([place], [place], [place], [place]) Address [address] [place] [address] Care Team Providers Care Administrative Representative Name Role Phone Martniez Canseco MD Primary Care Provider [phone] Encounter Details Date Type Department Care Team (Late st Contact Info) Description 09/08/2018 Transcribed Document [facility] [place] Family [place] [address] [place] [address] ProviderIvan MD [address] [place] [address] Social History Tobacco Use Types [...] on filedocumented in this encounter Care Teams Administrative Representative Relationship Specialty Start Date End Date Martinez Canseco MD [address] [place] [address] PCP - General Family Medicine 10/05/22 documented as of this encounter
--- OUTSIDE RECORDS SUMMARY | 2025-01-01 09:00 | XMS_ITS | Encounter Summary ---
Author Organization [employer] ([place], [place], [place], [place]) Address [address] [place] [address] Care Team Providers Care Armhole Baster Jumpbasting Name Role Phone Martinez Canseco MD Primary Care Provider [phone] Encounter Details Date Type Department Care Team (Late st Contact Info) Description 09/13/2018 Transcribed Document [facility] [place] Family Medicine [address] [place] [address] ProviderIvan MD [address] [place] [address] Social History Tobacco Use Types [...] doctor. This is important. Medicines ??? Take hdym-fby-nnvlxni and prescription medicines only as told by [...] 08/21/2008 Document Revised: 01/31/2017 Document Reviewed: 01/31/2017 [employer] Interactive Patient Education ? 2019 [employer]. Nutrition Heart-Healthy Eating Plan Many factors influence [...] foods can I eat? Grains Breads, including Mohawk, white, carolyn, wheat, raisin, rye, oatmeal, and Georgian. Tortillas that are neither fried nor made with lard or trans fat. Low-fat rolls, including hotdog and hamburger buns and Surinamese muffins. Biscuits. Muffins. Waffles. Pancakes. Light popcorn. Whole-grain cereals. Flatbread. [place] toast. Pretzels. Breadsticks. Rusks. Low-fat snacks and [...] cooking, baking, salads, and as spreads. Other Ventura powder. Coffee and tea. All seasonings and [...] cheese. Whole milk cheeses, including blue (shawnee), Graham Benito, Brie, Mark, Togolese, Havarti, Belgian, cheddar, Camembert, and Pray. Whole or 2% milk that is liquid, [...] that has suet, meat fat, or shortening. Ventura butter, hydrogenated oils, palm oil, coconut oil, [...] 12/12/2008 Document Revised: 09/22/2016 Document Reviewed: 08/27/2014 [employer] Interactive Patient Education ? 2019 [employer]. Pulmonary Medicine Home Oxygen Use, Adult When [...] 05/25/2004 Document Revised: 11/01/2016 Document Reviewed: 09/26/2016 [employer] Interactive Patient Education ? 2019 [employer]. Incentive Spirometer An incentive spirometer is a [...] 07/16/2007 Document Revised: 11/27/2016 Document Reviewed: 10/12/2014 [employer] Interactive Patient Education ? 2018 [employer] Inc. Surgery Coronary Artery Bypass Grafting, Care After This sheet gives you information about how to care for yourself after your procedure. Your doctor may also give you more specific instructions. If you have problems or questions, contact your doctor. Follow these instructions at home: Medicines ??? Take smjc-fpj-zjybigi and prescription medicines only as told by [...] cannot use soap and water, use hand boilermaker. ? Change your dressing as told by [...] 03/10/2014 Document Revised: 04/17/2017 Document Reviewed: 04/17/2017 ElseIn[employer] Interactive Patient Education ? 2019 [employer] Inc. documented in this encounter Plan of Treatment Not on file documented as of this encounter Visit Diagnoses Not on filedocumented in this encounter Care Teams Armhole Baster Jumpbasting Relationship Specialty Start Date End Date Martinez Canseco MD [address] [place] [address] PCP - General Family Medicine 10/05/22 documented as of this encounter
--- OUTSIDE RECORDS SUMMARY | 2025-01-01 09:00 | XMS_ITS | Encounter Summary ---
Author Organization [employer] ([place], [place], [place], [place]) Address [address] [place] [address] Care Team Providers Care Network Support Manager Name Role Phone Martinez Canseco MD Primary Care Provider [phone] Encounter Details Date Type Department Care Team (Late st Contact Info) Description 09/13/2018 Transcribed Document [facility] [place] Family Medicine [address] [place] [address] ProviderIvan MD [address] [place], [place] [address] Social History Tobacco Use Types Packs/Day Years [...] Ivan ProviderMD - 09/13/2018 2:00 AM CDT Safe Technician Details Entered On: 09/13/2018 0:15 EDT Performed [...] Elena Mancia RN - 09/13/2018 0:15 EDT documented in this encounter Plan of Treatment Not on file documented as of this encounter Visit Diagnoses Not on filedocumented in this encounter Care Teams Network Support Manager Relationship Specialty Start Date End Date Martinez Canseco MD [address] [place], [place] [id number] PCP - General Family Medicine 10/05/22 documented as of this encounter
--- OUTSIDE RECORDS SUMMARY | 2025-01-01 09:00 | XMS_ITS | Encounter Summary ---
Author Organization [employer] ([place], [place], [place], [place]) Address [address] [place] [address] Care Team Providers Care Director Of Strategic Sales Name Role Phone Martinez Canseco MD Primary Care Provider [phone] Encounter Details Date Type Department Care Team (Late st Contact Info) Description 09/07/2018 Transcribed Document [facility] [place] [address] [place] [address] ProviderIvan MD [address] [place], [place] [address] Social History Tobacco Use Types Packs/Day Years [...] Ivan ProviderMD - 09/07/2018 2:00 AM CDT Assistant Research Scientist Details Entered On: 09/07/2018 4:46 EDT Performed On: 09/07/2018 2:00 EDT by CHUCHO ERSTREPO RN Order Details Transport Mode Order Detail : Portable Isolation Precautions Order Detail : Standard Precautions Order Detail : N/A IV Order Detail : 1 Oxygen Order Detail : 1 Lift/Transfer : Moderate assist Central Line Order Detail : Yes Room Service : Appropriate Arterial Line : No CHUCHO RESTREPO RN - 09/07/2018 4:46 EDT documented in this encounter Plan of Treatment Not on file documented as of this encounter Visit Diagnoses Not on filedocumented in this encounter Care Teams Director Of Strategic Sales Relationship Specialty Start Date End Date Martinez Canseco MD [address] [place] [address] PCP - General Family Medicine 10/05/22 documented as of this encounter
--- OUTSIDE RECORDS SUMMARY | 2025-01-01 09:00 | XMS_ITS | Encounter Summary ---
Author Organization [employer] ([place], [place], [place], [place]) Address [address] [place] [address] Care Team Providers Care Piece Meat Trimmer Name Role Phone Martinez Canseco MD Primary Care Provider [phone] Encounter Details Date Type Department Care Team (Late st Contact Info) Description 09/08/2018 Transcribed Document [facility] [place] Family Medicine [address] [place] [address] ProviderIvan MD [address] [place] [address] Social History Tobacco Use Types Packs/Day Years [...] on filedocumented in this encounter Care Teams Piece Meat Trimmer Relationship Specialty Start Date End Date Martinez Canseco MD [address] [place] [address] PCP - General Family Medicine 10/05/22 documented as of this encounter
--- OUTSIDE RECORDS SUMMARY | 2025-01-01 09:00 | XMS_ITS | Encounter Summary ---
Author Organization [employer] ([place], [place], [place], [place]) Address [address] [place] [address] Care Team Providers Care Medical Records Analyst Name Role Phone Martinez Gutierrez MD Primary Care Provider [phone] Encounter Details Date Type Department Care Team (Late st Contact Info) Description 09/13/2018 Transcribed Document [facility] [place] [address] [place] [address] ProviderIvan MD [address] [place], [place] [address] Social History Tobacco Use Types Packs/Day Years [...] 1950 Associated Diagnoses: None Author: ANGELINE JAY, PUMP SERVICER HELPER-CTS DISCHARGE DISPOSITION Admission Date: Discharge Date: Attending:Dr. [...] Mitral valve repair using a 30 mm CTSpacetronic CG annuloplasty band. 3. Coronary artery bypass [...] [place] Interpretation: Radiology Results (Last 48 hours) [id number] -- 09/02/2018 14:21 CR Chest 1 Vw [...] ON HOSPITAL COURSE Admission ( transfer from [facility] 09/03: Carotid duplex and PFTs JESUSITA [...] to rehab to [facility] in [facility] - precert initiated Cr improved [...] after Sunday, DISCHARGE DISPOSTION 1) Discharge to [facility] ( [facility]) 2) Diet: Healthy Heart 3) Activity: Light ( no lifting greater than 10 lbs; no pushing or pulling; do driving for 2 months) 4) Presently on O2 4 liters NC ( wean as tolerated to maintain O2 sat of 90% or greater) 5) Cardiac Rehab: [facility] 6) Discharge Follow Up ESVIN BUTTS - 09/24/2018 01:15 MARTINEZ GUTIERREZ (REF) E - Within 1 week after discharge from Rehab KEYUR SOTO - 09/30/2018 02:20 [facility] Cardiac Rehab - Within 6 weeks 7) [...] Drs. Khoury and Harleen Electronically signed by [facility] Conversion Rn Critical Care Cerner at 07/05/2022 8:29 PM CDT documented in this encounter Plan of Treatment Not on file documented as of this encounter Visit Diagnoses Not on filedocumented in this encounter Care Teams Medical Records Analyst Relationship Specialty Start Date End Date Martinez Gutierrez MD [address] [place] [address] PCP - General Family Medicine 10/05/22 documented as of this encounter
--- OUTSIDE RECORDS SUMMARY | 2025-01-01 09:00 | XMS_ITS | Encounter Summary ---
Author Organization [employer] ([place], [place], [place], [place]) Address [address] [place] [address] Care Team Providers Care Manager Nicu Name Role Phone Martinez Canseco MD Primary Care Provider [phone] Encounter Details Date Type Department Care Team (Late st Contact Info) Description 09/04/2018 Transcribed Document [facility] [place] Family Medicine [address] [place] [address] ProviderIvan MD [address] [place], [place] [address] Social History Tobacco Use Types Packs/Day Years [...] filedocumented in this encounter Care Teams Manager Nicu Relationship Specialty Start Date End Date Martinez Canseco MD [address] [place] [address] PCP - General Family Medicine 10/05/22 documented as of this encounter
--- OUTSIDE RECORDS SUMMARY | 2025-01-01 09:00 | XMS_ITS | Encounter Summary ---
Author Organization [employer] ([place], [place], [place], [place]) Address [address] [place] [address] Care Team Providers Care Stone Operator Name Role Phone Martinez Canseco MD Primary Care Provider [phone] Encounter Details Date Type Department Care Team (Late st Contact Info) Description 09/04/2018 Transcribed Document [facility] [place] [address] [place] [address] ProviderIvan MD [address] [place] [address] Social History Tobacco Use Types [...] On: 09/04/2018 14:11 EDT by Trudy Alarcon risk tech Documentation Procedure to be Performed : right [...] Policy : Yes Procedure Case Attendee : FERD GREEN MD Procedure Case Attendee Role : Anesthesiologist Procedure Case Attendee Role 2 : risk tech Case Attendee 2 : RISHI PEREYRA RN Procedure Case Attendee Role 3 : risk tech Case Attendee 3 : Trudy Alarcon RN [...] on filedocumented in this encounter Care Teams Stone Operator Relationship Specialty Start Date End Date Martinze Canseco MD [address] [place] [address] PCP - General Family Medicine 10/05/22 documented as of this encounter
--- OUTSIDE RECORDS SUMMARY | 2025-01-01 09:00 | XMS_ITS | Clinical Summary ---
Author Organization [facility] Address [address] [place] [address] Care Team Providers Care Plastic Dolls Mold Filler Name Role Phone Ernesto Daniel MD Primary Care Provider [phone] Allergies No known active allergies Medications aspirin [...] Problems Problem Noted Date Diagnosed Date Acute prostatitis 06/20/2022 High anion gap metabolic acidosis 06/20/2022 Epistaxis 06/20/2022 Essential hypertension 06/20/2022 Mixed hyperlipidemia 06/20/2022 Coronary artery disease invo lving zuni coronary artery of zuni heart without angina pectoris 06/20/2022 Obesity (BMI 30.0-34.9) 06/20/2022 Resolved Problems Problem Noted Date Diagnosed Date Resolved Date Acute kidney injury 06/20/2022 12/08/19 25 Family History Medical History Relation Name Comments [...] drink first t rola in the morning (EYE-COMMERCIAL LOAN ADMINISTRATOR) to steady your nerves or to get [...] UKY-Zoster Vaccines (2 of 2) 06/02/2022 04/07/2022 [id number] Vaccine (6 - season) 2024 04/07/2022, 07/20/2021, 01/21/2021, Additional history exists UKY-Influenza [...] Patient has decision-making capacity? Yes Care Teams Plastic Dolls Mold Filler Relationship Specialty Start Date End Date Ernesto Daniel MD [address] [place] [address] PCP - General 06/20/22
--- OUTSIDE RECORDS SUMMARY | 2025-01-01 09:00 | XMS_ITS | Encounter Summary ---
Author Organization [facility] ([place], [place], [place], [place]) Address [address] [place] [address] Care Team Providers Care Rack Pusher Name Role Phone Martinez Canseco MD Primary Care Provider [phone] Encounter Details Date Type Department Care Team (Late st Contact Info) Description 09/07/2018 Transcribed Document [facility] [place] Family Medicine [address] [place] [address] ProviderIvan MD [address] [place], [place] [address] Social History Tobacco Use Types Packs/Day Years [...] to have MVCAD. He was transferred to [facility] for CTS evaluation. 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 Radiology Results (Last 48 hours) [id number] -- 09/02/2018 14:21 CR Chest 1 Vw [...] call if needed Electronically signed by Destiny [facility] Conversion Payroll Coordinator Cerner at 07/05/2022 8:28 PM CDT documented in this encounter Plan of Treatment Not on file documented as of this encounter Visit Diagnoses Not on filedocumented in this encounter Care Teams Rack Pusher Relationship Specialty Start Date End Date Martinez Canseco MD [address] [place] [address] PCP - General Family Medicine 10/05/22 documented as of this encounter
--- OUTSIDE RECORDS SUMMARY | 2025-01-01 09:00 | XMS_ITS | Encounter Summary ---
Author Organization [employer] ([place], [place], [place], [place]) Address [address] [place] [address] Care Team Providers Care Projection Printer Name Role Phone Martinez Canesco MD Primary Care Provider [phone] Encounter Details Date Type Department Care Team (Late st Contact Info) Description 09/06/2018 Transcribed Document [facility] [place] Family Medicine [address] [place] [address] ProviderIvan MD [address] [place] [address] Social History Tobacco Use Types Packs/Day Years [...] Meenakshi Gu, RN - 09/06/2018 4:48 EDT documented in this encounter Plan of Treatment Not on file documented as of this encounter Visit Diagnoses Not on filedocumented in this encounter Care Teams Projection Printer Relationship Specialty Start Date End Date Martinez Canseco MD [address] [place] [address] PCP - General Family Medicine 10/05/22 documented as of this encounter
--- OUTSIDE RECORDS SUMMARY | 2025-01-01 09:00 | XMS_ITS | Encounter Summary ---
Author Organization [employer] ([place], [place], [place], [place]) Address [address] [place] [address] Care Team Providers Care Oxygen Plant Operator Name Role Phone Martinez Canseco MD Primary Care Provider [phone] Encounter Details Date Type Department Care Team (Late st Contact Info) Description 09/13/2018 Transcribed Document [facility] Family Medicine [address] [place] [address] ProviderIvan MD [address] [place], [place] [address] Social History Tobacco Use Types Packs/Day Years [...] LEONELA SOUZA, PT - 09/13/2018 15:31 EDT Assisted Goals Mobility/Bed Mobility LTG PT Grid Goal [...] on filedocumented in this encounter Care Teams Oxygen Plant Operator Relationship Specialty Start Date End Date Martinez Canseco MD [address] [place] [address] PCP - General Family Medicine 10/05/22 documented as of this encounter
--- OUTSIDE RECORDS SUMMARY | 2025-01-01 09:01 | XMS_ITS | Encounter Summary ---
Author Organization [employer] ([place], [place], [place], [place]) Address [address] [place] [address] Care Team Providers Care Kennel Keeper Name Role Phone Martinez Canseco MD Primary Care Provider [phone] Encounter Details Date Type Department Care Team (Late st Contact Info) Description 09/09/2018 Transcribed Document [facility] Family Medicine [address] [place] [address] ProviderIvan MD [address] [place], [place] [address] Social History Tobacco Use Types Packs/Day Years [...] 09/09/2018 4:59 EDT Electronically signed by Destiny [facility] Conversion Project Management Advisor Cerner at 07/05/2022 8:52 PM CDT documented in this encounter Plan of Treatment Not on file documented as of this encounter Visit Diagnoses Not on filedocumented in this encounter Care Teams Kennel Keeper Relationship Specialty Start Date End Date Martinez Canseco MD [address] [place] [address] PCP - General Family Medicine 10/05/22 documented as of this encounter
--- OUTSIDE RECORDS SUMMARY | 2025-01-01 09:01 | XMS_ITS | Referral Summary ---
Author Organization [employer] ([place], [place], [place], [place]) Address [address] [place] [address] Care Team Providers Care It Service Manager Name Role Phone Martinez Canseco MD Primary Care Provider [phone] Encounters Date Type Department Care Team Description 10/29/2024 Travel 10/29/2024 10:30 AM EDT Audio - Telemedicine [facility] [address] [place] [address] [phone] Adalberto Painting MD Liver mass (Primary Dx) 10/27/2024 Travel 10/27/2024 9:32 AM EDT - 10/27/2024 11:59 PM EDT Hospital Encounter [facility] [address] [phone] Adalberto Painting MD Liver mass Discharge Disposition: Home or Self Care 10/13/2024 Orders Only [facility] [address] [place] [address] [phone] Adalberto Painting MD Liver mass (Primary Dx) [...] Date Iain rded Speak language other than Swiss at home Not on file 03/31/2023 Want [...] POC-Creatinine 1.2 mg/dL 10/27/2024 9:51 AM EDT [facility] POC-EGFR >60 mL/min/1. 73M2 10/27/2024 9:51 AM EDT [facility] Comment:Proceed with contras t if eGFR > 45 ml/min/1.73 when performed on the NovaSTAT strip Creatinine meter. Safety Fire Boss RICHAR TOVAR 10/27/2024 9:51 AM EDT [facility] Blood 10/27/2024 9:50 AM EDT 10/27/2024 9:51 AM EDT Narrative [facility] - 10/27/2024 9:51 AM EDT Safety Fire Boss ID is - [id number] Adalberto Painting MD POINT OF CARE TEST ORDERABLES Fi nal Result [facility] [address] [phone] from Last 3 Months Insurance [place] [address] [place] [address] Care Teams It Service Manager Relationship Specialty Start Date End Date Martinez Canseco MD [address] [place] [address] PCP - General Family Medicine 10/05/22
--- OUTSIDE RECORDS SUMMARY | 2025-01-01 09:01 | XMS_ITS | Clinical Summary ---
Author Organization [facility] Address [address] [place] [address] Phone Care Team Providers Care Dental Practitioner Name Role Phone Apolinar Aldana MD Primary Care Provider [phone] Allergies No known active allergies Medications atorvastatin (LIPITOR) 20 mg Oral TabletIndication s:Coronary artery disease involving coronary bypass graft of assiniboine and sioux heart without angina pectoris Take 1 Tab [...] disease invo lving coronary bypass graft of assiniboine and sioux heart without angina pectoris 07/13/2022 Assessment & Plan (07/13/2022 10:06 AM EDT): Noted from previous history. No acute complaints today. Essential hypertension 07/13/2022 CKD (chronic kidney disease) stage 3, GFR 30-59 ml/min 07/13/2022 Overview (07/13/2022): Professor Of Surgery - Dr. Augusto Frederick [phone] Assessment & Plan (10/28/2024 1:48 PM EDT): [...] EDT Office Visit [facility] [address] [place] [address] Apolinar Aldana MD Annual physical [...] screened with both Cologuard and colonoscopy. (Bakari Douglass et al, N Engl J Med 2014;370(14):7696-6149) The normal value (reference range) for this assay is negative. COLOGUARD RE-SCREENING RECOMMENDATION: Periodic colorectal cancer screening is an important part of preventive healthcare for asymptomatic individuals at average risk for colorectal cancer. Following a negative Cologuard result, the [place] Cancer Society and U.S. Multi-Society Task Force screening guidelines recommend a Cologuard re-screening interval of 3 years. References: [place] Cancer Society Guideline for Colorectal Cancer Screening: https://www.cancer.org/cancer/hynqk-ecnzig-kkizdn/clrysxymr-csslgaleq-mjvnjrb/ac s-rec ommendations.html.; Nelson DK, Whitley MONTILLA, Hermelindo MarrK, Colorectal Cancer Screening: Recommendations for Physicians and Patients from the U.S. Multi-Society Task Force on Colorectal Cancer Screening , Am J Gastroenterology 2017; 112:9974-9735. TEST DESCRIPTION: Composite algorithmic analysis of stool [...] (Bakari Luna al, N Engl J Med 2014;370(14):3101-2213.) Cologuard may produce a false negative or false positive result (no colorectal cancer or precancerous polyp present at colonoscopy follow up). A negative Cologuard test result does not guarantee the absence of CRC or advanced adenoma (pre-cancer). The current Cologuard screening interval is every 3 years. ([place] Cancer Society and U.S. Multi-Society Task Force). Cologuard performance data in a 10,000 patient pivotal study using colonoscopy as the reference method can be accessed at the following location: www.D[employer]o.GI Track/results. Additional description of the Cologuard test process, warnings and precautions can be found at www.cologuard.com. 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 07/16/2022 Insurance MEDICARE [place] PART A AND B [place] [facility] MEDICARE [place]ARE [place] PART A AND B [place] [employer] MEDICARE [place] [id number] [facility] [address] [id number] Advance Directives For more information, please contact: [phone] * Full Code (Latest Code Status on File) Date Activated Date Inactivated Comments 07/19/2022 3:28 PM 07/25/2022 9:44 PM * Full Code Date Activated Date Inactivated Comments 07/16/2022 10:34 PM 07/17/2022 9:07 PM Care Teams Dental Practitioner Relationship Specialty Start Date End Date Apolinar Aldana MD [address] [place] [address] PCP - General Internal Medicine 07/13/22
--- OUTSIDE RECORDS SUMMARY | 2025-01-01 09:01 | XMS_ITS | Encounter Summary ---
Author Organization [employer] ([place], [place], [place], [place]) Address [address] [place] [address] Care Team Providers Care Leadership Coach Name Role Phone Martinez Gutierrez MD Primary Care Provider [phone] Encounter Details Date Type Department Care Team (Late st Contact Info) Description 09/13/2018 Transcribed Document [facility] [place] [address] [place] [address] ProviderIvan MD [address] [place] [address] Social History Tobacco Use Types [...] Nino MD - 09/13/2018 12:27 PM CDT [facility] [place] [address] TARAIZABELLA MENA :1950 Visit Time:09/02/2018 Your Visit Summary Your Care Team Admitting Physician - ESVIN BUTTS MD-CAT Attending Physician - ESVIN BUTTS MD-CAT Primary Care Physician - YUMI, UNKNOWN Referring Physician - YUMI, UNKNOWN Your Diagnosis Alcohol use 3 beers daily 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, 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, CAD (coronary artery disease), [place] coronary artery, CAD (coronary artery disease), [place] coronary artery Diverticulitis with history of colostomy and recent colostomy reversal HLD (hyperlipidemia) HTN (hypertension) Nicotine dependence with withdrawal Recent Pneumonia Severe COPD and emphysematous lungs Severe mitral regurgitation, Severe mitral regurgitation Unstable angina Discharge Vitals Temperature 36.3 ??C Heart Rate (Monitored) 109 Respiratory Rate 18 Blood Pressure 94/62 What to do next Instructions From Your Care Team Rehabilitation: [facility] Nurse can Call report to [phone] Discharge Summary: fax to [phone] Transportation: Brother will transport [facility] to deliver portable O2 tank for transport. Discharge Activity: no pushing or pulling, Discharge Activity: No heavy lifting over 10 lbs Diet: Discharge Diet: Heart healthy diet Showering/Bathing Instructions: May shower Driving Restriction: Do Not Drive for 2 months Follow-Up Appointments Follow Up with KEYUR TRUJILLO When 09/30/2018 02:20 AM EDT Comments Appointment has been made Where: [address] [place] [address]- [phone] Follow Up with ESVIN BUTTS When 09/24/2018 01:15 AM EDT Comments Appointment has been made Where: [address] [place] [address]- Business (1) Follow Up with MARTINEZ GUTIERREZ (KRIS) Viri When Within 1 week Comments after discharge from Rehab Where: [address] [place] [address]- , Follow Up with [facility] Cardiac [facility]hab When Within 6 weeks Comments Office to call with appoint/instructions Where: [phone] Medications What How Much When Instructions Next [...] use an oxygen concentrator: ? Tell your [employer]. Make sure you are given priority service [...] 05/25/2004 Document Revised: 11/01/2016 Document Reviewed: 09/26/2016 [employer] Patient Education ?? 2019 [employer]. Incentive Spirometer An incentive spirometer is a [...] 07/16/2007 Document Revised: 11/27/2016 Document Reviewed: 10/12/2014 [employer] Interactive Patient Education ?? 2018 [employer]. Hypertension Hypertension is another name for high [...] doctor. This is important. Medicines ??? Take iccs-bvd-medlrce and prescription medicines only as told by [...] 08/21/2008 Document Revised: 01/31/2017 Document Reviewed: 01/31/2017 [employer] Interactive Patient Education ?? 2019 [employer]. Heart-Healthy Eating Plan Many factors influence your [...] white, carolyn, wheat, raisin, rye, oatmeal, and Chilean. Tortillas that are neither fried nor made with lard or trans fat. Low-fat rolls, including hotdog and hamburger buns and North Korean muffins. Biscuits. Muffins. Waffles. Pancakes. Light popcorn. Whole-grain cereals. Flatbread. [place] toast. Pretzels. Breadsticks. Rusks. Low-fat snacks and [...] cooking, baking, salads, and as spreads. Other Nye powder. Coffee and tea. All seasonings and [...] cheese. Whole milk cheeses, including blue (shawnee), Oakwood Benito, Brie, Mark, Burmese, Havarti, Grenadian, cheddar, Camembert, and Dallas. Whole or 2% milk that is liquid, [...] that has suet, meat fat, or shortening. Nye butter, hydrogenated oils, palm oil, coconut oil, [...] 12/12/2008 Document Revised: 09/22/2016 Document Reviewed: 08/27/2014 [employer] Interactive Patient Education ?? 2019 [employer]. Coronary Artery Bypass Grafting, Care After This sheet gives you information about how to care for yourself after your procedure. Your doctor may also give you more specific instructions. If you have problems or questions, contact your doctor. Follow these instructions at home: Medicines ??? Take fyeh-bpn-aihnjel and prescription medicines only as told by [...] cannot use soap and water, use hand order fulfillment specialist. ? Change your dressing as told by [...] 03/10/2014 Document Revised: 04/17/2017 Document Reviewed: 04/17/2017 [employer] Interactive Patient Education ?? 2019 [employer] Emergency Awareness and Preventative Care STROKE [...] Assistance with quitting is available by contacting 2-091-LUED-NOW. This is a free resource providing counseling, support, and referral. Or you may contact your personal physician. Viss Suicide Prevention Lifeline: The National Suicide Prevention [...] range between ( 0.0 and 7.0 ) Garfield #: 0.72 K/uL -- Normal range between ( 0.16 and 1.00 ) Eos #: 0.02 x10(3)/uL -- Normal range between ( 0.00 and 0.80 ) Garfield %: 6.9 % -- Normal range between [...] RBC Morphology: Normal ANC #: 6 K/uL Garfield Percent Man: 8 % -- Normal range [...] was given the opportunity to ask questions. Patient/Duplex Trimmer Name: Patient/Duplex Trimmer Signature: Relationship to Patient: Clinician/Hospital Duplex Trimmer Signature: Date: Electronically signed by Destiny, [facility] Conversion Regional Account Executive Cerner at 07/05/2022 8:26 PM CDT documented in this encounter Plan of Treatment Not on file documented as of this encounter Visit Diagnoses Not on filedocumented in this encounter Care Teams Leadership Coach Relationship Specialty Start Date End Date Martinez Gutierrez MD [address] [place] [address] PCP - General Family Medicine 10/05/22 documented as of this encounter
--- OUTSIDE RECORDS SUMMARY | 2025-01-01 09:01 | XMS_ITS | Encounter Summary ---
Author Organization [employer] ([place], [place], [place], [place]) Address [address] [place] [address] Care Team Providers Care Instructor Kindergarten Name Role Phone Martinez Canseco MD Primary Care Provider [phone] Encounter Details Date Type Department Care Team (Late st Contact Info) Description 09/06/2018 Transcribed Document [facility] [place] Family Medicine [address] [place] [address] ProviderIvan MD [address] [place], [place] [address] Social History Tobacco Use Types Packs/Day Years [...] and emphysematous lungs; CAD (coronary artery disease), [place] coronary artery Author: DIOMEDES KLEIN PA Basic [...] Non-distended, Normal bowel sounds. Integumentary: Warm, Dry, [place], Aquacel dressing is C/D/I. Psychiatric: Mood and affect: Calm. Review / Management Results review: SEP 05 03:55 139 109 14 / H 180 4.7 23 0.90 \ SEP 05 03:55 \ L 11.9 / H 15.5 177 / L 35.0 \. Radiology results Radiology Results (Last 48 hours) [id number] -- 09/02/2018 14:21 CR Chest 1 Vw [...] Pre-Op Diagnosis, Medical. CAD (coronary artery disease), [place] coronary artery - Admitting, Medical. CAD (coronary artery disease), [place] coronary artery - Discharge, Medical. documented in this encounter Plan of Treatment Not on file documented as of this encounter Visit Diagnoses Not on filedocumented in this encounter Care Teams Instructor Kindergarten Relationship Specialty Start Date End Date Martinez Canseco MD [address] [place] [address] PCP - General Family Medicine 10/05/22 documented as of this encounter
--- OUTSIDE RECORDS SUMMARY | 2025-01-01 09:01 | XMS_ITS | Encounter Summary ---
Author Organization [employer] ([place], [place], [place], [place]) Address [address] [place] [address] Care Team Providers Care Turpentiner Name Role Phone Martinez Canseco MD Primary Care Provider [phone] Encounter Details Date Type Department Care Team (Late st Contact Info) Description 09/09/2018 Transcribed Document [facility] [place] Medicine [address] [place] [address] ProviderIvan MD [address] [place], [place] [address] Social History Tobacco Use Types Packs/Day Years [...] and emphysematous lungs; CAD (coronary artery disease), [place] coronary artery Author: LEANDER WHEELER PA Basic [...] today. 08/08: POD # 4, Transfer to [facility] 09/09: POD # 5, nausea improved today, [...] Non-distended, Normal bowel sounds. Integumentary: Warm, Dry, [place], Aquacel dressing is C/D/I. Neurologic: Alert, Oriented, No focal deficits. Psychiatric: Mood and affect: Calm. Review / Management Results review: SEP 09 03:06 142 106 H 34 / H 140 3.7 31 1.20 \ SEP 09 03:06 \ L 10.8 / 9.1 282 / L 32.7 \. Radiology results Radiology Results (Last 48 hours) [id number] -- 09/02/2018 14:21 CR Chest 1 Vw [...] Pre-Op Diagnosis, Medical. CAD (coronary artery disease), [place] coronary artery - Admitting, Medical. CAD (coronary artery disease), [place] coronary artery - Discharge, Medical. documented in this encounter Plan of Treatment Not on file documented as of this encounter Visit Diagnoses Not on filedocumented in this encounter Care Teams Turpentiner Relationship Specialty Start Date End Date Martinez Canseco MD [address] [place] [address] PCP - General Family Medicine 10/05/22 documented as of this encounter
--- OUTSIDE RECORDS SUMMARY | 2025-01-01 09:01 | XMS_ITS | Clinical Summary ---
Author Organization [employer] ([place], [place], [place], [place]) Address [address] [place] [address] Care Team Providers Care Campground Attendant Name Role Phone Martinez Canseco MD Primary Care Provider [phone] Allergies No known active allergies Medications amLODIPine [...] [facility] [address] [place] [address] [address] Adalberto Painting MD Liver mass (Primary Dx) 10/29/2024 Travel 10/27/2024 9:32 AM EDT - 10/27/2024 11:59 PM EDT Hospital Encounter [facility] [address] [place] [address] Adalberto Painting MD Liver mass Discharge Disposition: Home or Self Care 10/27/2024 Travel 10/13/2024 Orders Only [facility] [address] [address] Adalberto Painting MD Liver mass [...] Date Iain rded Speak language other than Namibian at home Not on file 03/31/2023 Want [...] (2 of 2 - PCV) 02/16/2021 02/17/2020 Falls Risk Screening 03/19/2024 COVID-19 VACCINE (5 - 2024-2 6 season) 2024 07/20/2021, 01/21/2021, 06/23/2020, Additional history exists Influenza Vaccine (#1) 2024 12/29/2021, 2019 DTAP/TDAP/TD [...] POC-Creatinine 1.2 mg/dL 10/27/2024 9:51 AM EDT [facility] POC-EGFR >60 mL/min/1. 73M2 10/27/2024 9:51 AM EDT [facility] Comment:Proceed with contras t if eGFR > 45 ml/min/1.73 when performed on the NovaSTAT strip Creatinine meter. Production Control Expediter RICHAR TOVAR 10/27/2024 9:51 AM EDT [facility] Blood 10/27/2024 9:50 AM EDT 10/27/2024 9:51 AM EDT Narrative [facility] - 10/27/2024 9:51 AM EDT Production Control Expediter ID is - [id number] us Adalberto Painting MD POINT OF CARE TEST ORDERABLES Fi nal Result [facility] [address] [place] [address] from Last 3 Months Insurance MEDICARE PART A B Care Teams Campground Attendant Relationship Specialty Start Date End Date Martinez Canseco MD [address] [place] [address] PCP - General Family Medicine 10/05/22
--- OUTSIDE RECORDS SUMMARY | 2025-01-01 09:01 | XMS_ITS | Encounter Summary ---
Author Organization [employer] ([place], [place], [place], [place]) Address [address] [place] [address] Care Team Providers Care Transportation Job Titles Name Role Phone Martinez Canseco MD Primary Care Provider [phone] Encounter Details Date Type Department Care Team (Late st Contact Info) Description 09/09/2018 Transcribed Document [facility] [place] Family Medicine [address] [place] [address] ProviderIvan MD [address] [place] [address] Social History Tobacco Use Types Packs/Day Years [...] 09/09/2018 15:57 EDT Electronically signed by Destiny [facility] Conversion Automatic Beam Warper Tender Cerner at 07/05/2022 8:36 PM CDT documented in this encounter Plan of Treatment Not on file documented as of this encounter Visit Diagnoses Not on filedocumented in this encounter Care Teams Transportation Job Titles Relationship Specialty Start Date End Date Martinez Canseco MD [address] [place] [address] PCP - General Family Medicine 10/05/22 documented as of this encounter
--- OUTSIDE RECORDS SUMMARY | 2025-01-01 09:01 | XMS_ITS | Encounter Summary ---
Author Organization [employer] ([place], [place], [place], [place]) Address [address] [place] [address] Care Team Providers Care Non Licensed Nuclear Equipment Operator Name Role Phone Martinez Canseco MD Primary Care Provider [phone] Encounter Details Date Type Department Care Team (Late st Contact Info) Description 09/11/2018 Transcribed Document [facility] [place] Family Medicine [address] [place] [address] ProviderIvan MD [address] [place] [address] Social History Tobacco Use Types [...] Note - Ivan Nino MD - 09/11/2018 8:29 AM CDT [facility] Endo PACU Summary Primary Physician: ARLETTE DE JESUS MD Finalized Date/Time: 09/11/18 09:25:20 Pt. Name: AUGUSTO PACHECO/Sex: 1950 Male Med Rec #: [id number] Physician: ESVIN BUTTS MD-CAT Financial #: [id number] Pt. Type: I Room/Bed: [facility]/1 Admit/Disch: 09/02/18 14:21:00 - Institution: [facility] Endo PACU Case Times Entry 1 In PACU I 09/11/18 08:45:00 Ready for PACU 09/11/18 09:25:00 Discharge Discharge from PACU 09/11/18 09:25:00 I Last Modified By: Zahra Bedoya Rn 09/11/18 09:25:17 Finalized By: Zahra Bedoya, Rn Document Signatures Signed By: Zahra Bedoya Rn 09/11/18 09:25 Electronically signed by Destiny [facility] Conversion Dipper Machine Operator Cerner at 07/05/2022 8:32 PM CDT documented in this encounter Plan of Treatment Not on file documented as of this encounter Visit Diagnoses Not on filedocumented in this encounter Care Teams Non Licensed Nuclear Equipment Operator Relationship Specialty Start Date End Date Martinez Canseco MD [address] [place] [address] PCP - General Family Medicine 10/05/22 documented as of this encounter
--- OUTSIDE RECORDS SUMMARY | 2025-01-01 09:01 | XMS_ITS | Encounter Summary ---
Author Organization [employer] ([place], [place], [place], [place]) Address [address] [place] [address] Care Team Providers Care Lace And Textiles Restorer Name Role Phone Martinez Canseco MD Primary Care Provider [phone] Encounter Details Date Type Department Care Team (Late st Contact Info) Description 09/12/2018 Transcribed Document [facility] [address] [place] [address] ProviderIvan MD [address] [place], [place] [address] Social History Tobacco Use Types Packs/Day Years [...] On: 09/12/2018 14:14 EDT by [employer] Machinist Job Setter Care Management Progress Note Discharge Arrangements : Patient Post-Acute Information Patient Name: AUGUSTO PACHECO Gender: Male : [birth year] Age: 67 Years Curas[place] Referral(s): Service: Organization: Business Address: Phone Number: [facility] [address], [place], [address] Discharge Options Discussed with Patient : DME, Home Health, Short term rehabilitation Barriers to Discharge Identified : Clinical Condition of Patient Barriers to Discharge Unresolved : Clinical Condition of Patient Patient Offered Choice/Affiliations Explained : Yes Is the Patient Meeting Medical Necessity : Yes BIRGIT IQBAL Machinist Job Setter - 09/12/2018 14:14 EDT Narrative Progress Note Narrative Progress Note : Continue to follow for discharge needs and arrangements, chart reviewed, day 10, 6 liters O2, BUN=32, WBC=10.6, CXR=IMPRESSION: Stable bibasilar airspace disease and small pleural effusions; s/p bronch, afib over night, started IV Amio/transition to PO Amio, PT/OT following - plan is to transition to [facility] for rehab placement; updated clinical information has been forwarded to facility to day via [facility]. CM will continue to follow. BIRGIT IQBAL Machinist Job Setter - 09/12/2018 14:14 EDT documented in this encounter Plan of Treatment Not on file documented as of this encounter Visit Diagnoses Not on filedocumented in this encounter Care Teams Lace And Textiles Restorer Relationship Specialty Start Date End Date Martinez Canseco MD [address] [place] [address] PCP - General Family Medicine 10/05/22 documented as of this encounter
--- OUTSIDE RECORDS SUMMARY | 2025-01-01 09:01 | XMS_ITS | Encounter Summary ---
Author Organization [employer] ([place], [place], [place], [place]) Address [address] [place] [address] Care Team Providers Care Contract Analyst Name Role Phone Martinez Canseco MD Primary Care Provider [phone] Encounter Details Date Type Department Care Team (Late st Contact Info) Description 09/12/2018 Transcribed Document [facility] [place] Family Medicine [address] [place] [address] ProviderIvan MD [address] [place], [place] [address] Social History Tobacco Use Types Packs/Day Years [...] on filedocumented in this encounter Care Teams Contract Analyst Relationship Specialty Start Date End Date Martinez Canseco MD [address] [place] [address] PCP - General Family Medicine 10/05/22 documented as of this encounter
--- OUTSIDE RECORDS SUMMARY | 2025-01-01 09:01 | XMS_ITS | Encounter Summary ---
Author Organization [employer] ([place], [place], [place], [place]) Address [address] [place] [address] Care Team Providers Care Fsr Name Role Phone Martinez Canseco MD Primary Care Provider [phone] Encounter Details Date Type Department Care Team (Late st Contact Info) Description 09/06/2018 Transcribed Document [facility] [place] Family Medicine [address] [place] [address] ProviderIvan MD [address] [place] [address] Social History Tobacco Use Types [...] 09/06/2018 20:46 EDT Electronically signed by Destiny [facility] Conversion Loss Prevention Representative Cerner at 07/05/2022 8:40 PM CDT documented in this encounter Plan of Treatment Not on file documented as of this encounter Visit Diagnoses Not on filedocumented in this encounter Care Teams Fsr Relationship Specialty Start Date End Date Martinez Canseco MD [address] [place] [address] PCP - General Family Medicine 10/05/22 documented as of this encounter
--- OUTSIDE RECORDS SUMMARY | 2025-01-01 09:01 | XMS_ITS | Encounter Summary ---
Author Organization [employer] ([place], [place], [place], [place]) Address [address] [place] [address] Care Team Providers Care Counseling Services Manager Name Role Phone Martinez Canseco MD Primary Care Provider [phone] Encounter Details Date Type Department Care Team (Late st Contact Info) Description 09/06/2018 Transcribed Document [facility] [place] Family Medicine [address] [place] [address] ProviderIvan MD [address] [place] [address] Social History Tobacco Use [...] - 09/06/2018 10:39 EDT Electronically signed by [facility] Conversion Edge Setter Cerner at 07/05/2022 8:37 PM CDT documented in this encounter Plan of Treatment Not on file documented as of this encounter Visit Diagnoses Not on filedocumented in this encounter Care Teams Counseling Services Manager Relationship Specialty Start Date End Date Martinez Canseco MD [address] [place] [address] PCP - General Family Medicine 10/05/22 documented as of this encounter
--- OUTSIDE RECORDS SUMMARY | 2025-01-01 09:01 | XMS_ITS | Encounter Summary ---
Author Organization [employer] ([place], [place], [place], [place]) Address [address] [place] [address] Care Team Providers Care Client Services Analyst Name Role Phone Martinez Canseco MD Primary Care Provider [phone] Encounter Details Date Type Department Care Team (Late st Contact Info) Description 09/07/2018 Transcribed Document [facility] [place] [address] [place] [address] ProviderIvan MD [address] [place] [address] Social History Tobacco Use Types Packs/Day Years [...] on filedocumented in this encounter Care Teams Client Services Analyst Relationship Specialty Start Date End Date Martinez Canseco MD [address] [place] [address] PCP - General Family Medicine 10/05/22 documented as of this encounter
--- OUTSIDE RECORDS SUMMARY | 2025-01-01 09:01 | XMS_ITS | Encounter Summary ---
Author Organization [employer] ([place], [place], [place], [place]) Address [address] [place] [address] Care Team Providers Care Real Estate Firm Manager Name Role Phone Martinez Canseco MD Primary Care Provider [phone] Encounter Details Date Type Department Care Team (Late st Contact Info) Description 09/09/2018 Transcribed Document [facility] [place] Family Medicine [address] [place] [address] ProviderIvan MD [address], [place] [address] Social History Tobacco Use Types Packs/Day Years [...] On: 09/09/2018 15:53 EDT by BIRGIT IQBAL Outsole Cutter Machine Care Management Progress Note Discharge Arrangements : [...] Meeting Medical Necessity : Yes BIRGIT IQBAL Outsole Cutter Machine - 09/09/2018 15:53 EDT Narrative Progress Note Narrative Progress Note : Continue to follow for discharge needs and arrangements, chart reviewed, tranfer from [facility], day 7, currently on 4 liters O2, BUN/Crea=34/1.2, Ca=10.2, CXR=IMPRESSION: Removal of support devices without evidence of pneumothorax or progression of lung disease; PT/OT following, met with patient and daughterOlga ([phone]) to discuss disposition needs/arrangements, all agree that rehab is best option; clinical information forwarded to [facility], via [facility] for review and possible admission. CM will continue to follow. BIRGIT IQBAL Social Worker - 09/09/2018 15:53 EDT documented in this encounter Plan of Treatment Not on file documented as of this encounter Visit Diagnoses Not on filedocumented in this encounter Care Teams Real Estate Firm Manager Relationship Specialty Start Date End Date Martinez Canseco MD [address] [place] [address] PCP - General Family Medicine 10/05/22 documented as of this encounter
--- OUTSIDE RECORDS SUMMARY | 2025-01-01 09:01 | XMS_ITS | Encounter Summary ---
Author Organization [employer] ([place], [place], [place], [place]) Address [address] [place] [address] Care Team Providers Care Inserter Promotional Item Name Role Phone Martinez Canseco MD Primary Care Provider [phone] Encounter Details Date Type Department Care Team (Late st Contact Info) Description 09/10/2018 Transcribed Document [facility] [place] [address] [place] [address] ProviderIvan MD [address] [place], [place] [address] Social History Tobacco Use Types Packs/Day Years [...] and emphysematous lungs; CAD (coronary artery disease), [place] coronary artery Author: LEANDER WHEELER PA Basic [...] today. 08/08: POD # 4, Transfer to [facility] 09/09: POD # 5, nausea [...] 8:11 EDT Heart Rate Monitored 104 bpm ND 09/10/2018 7:43 EDT Systolic Blood Pressure 117 mmHg Diastolic Blood Pressure 77 mmHg General: Alert and oriented, No acute distress. Respiratory: Lungs are clear to auscultation, Respirations are non-labored, Breath sounds are equal. Cardiovascular: 112 beats per minute, Regular rhythm, S1, S2, Tachycardia, No edema. Gastrointestinal: Soft, Non-tender, Non-distended, Normal bowel sounds. Integumentary: Warm, Dry, [place], Aquacel dressing is C/D/I. Neurologic: Alert, Oriented, No focal deficits. Psychiatric: Mood and affect: Calm. Review / Management Results review: SEP 10 03:31 145 106 H 43 / H 109 3.8 H 35 1.10 \ SEP 10 03:31 \ L 10.0 / 8.6 282 / L 30.1 \. Radiology results Radiology Results (Last 48 hours) [id number] -- 09/02/2018 14:21 CR Chest 1 Vw [...] Pre-Op Diagnosis, Medical. CAD (coronary artery disease), [place] coronary artery - Admitting, Medical. CAD (coronary artery disease), [place] coronary artery - Discharge, Medical. Electronically signed by Destiny, [facility] Conversion Justice Of The Peace Cerner at 07/05/2022 8:28 PM CDT documented in this encounter Plan of Treatment Not on file documented as of this encounter Visit Diagnoses Not on filedocumented in this encounter Care Teams Inserter Promotional Item Relationship Specialty Start Date End Date Martinez Canseco MD [address] [place] [address] PCP - General Family Medicine 10/05/22 documented as of this encounter
--- OUTSIDE RECORDS SUMMARY | 2025-01-01 09:01 | XMS_ITS | Encounter Summary ---
Author Organization [employer] ([place], [place], [place], [place]) Address [address] [place] [address] Care Team Providers Care Supersonic Engineer Name Role Phone Martinez Canseco MD Primary Care Provider [phone] Encounter Details Date Type Department Care Team (Late st Contact Info) Description 09/09/2018 Transcribed Document [facility] [place] [address] [place] [address] ProviderIvan MD [address] [place] [address] Social History Tobacco Use Types Packs/Day Years [...] on filedocumented in this encounter Care Teams Supersonic Engineer Relationship Specialty Start Date End Date Martinez Canseco MD [address] [place] [address] PCP - General Family Medicine 10/05/22 documented as of this encounter
--- OUTSIDE RECORDS SUMMARY | 2025-01-01 09:01 | XMS_ITS | Encounter Summary ---
Author Organization [employer] ([place], [place], [place], [place]) Address [address] [place] [address] Care Team Providers Care Gear Keeper Name Role Phone Martinez Canseco MD Primary Care Provider [phone] Encounter Details Date Type Department Care Team (Late st Contact Info) Description 09/11/2018 Transcribed Document [facility] [place] [address] [place] [address] ProviderIvan MD [address] [place], [place] [address] Social History Tobacco Use Types Packs/Day Years [...] 09/11/2018 15:41 EDT Electronically signed by Destiny [facility] Conversion Regional Economic Liaison Cerner at 07/05/2022 8:32 PM CDT documented in this encounter Plan of Treatment Not on file documented as of this encounter Visit Diagnoses Not on filedocumented in this encounter Care Teams Gear Keeper Relationship Specialty Start Date End Date Martinez Canseco MD [address] [place] [address] PCP - General Family Medicine 10/05/22 documented as of this encounter
--- OUTSIDE RECORDS SUMMARY | 2025-01-01 09:01 | XMS_ITS | Encounter Summary ---
Author Organization [employer] ([place], [place], [place], [place]) Address [address] [place] [address] Care Team Providers Care Store Receiver Name Role Phone Martinez Canseco MD Primary Care Provider [phone] Encounter Details Date Type Department Care Team (Late st Contact Info) Description 09/06/2018 Transcribed Document [facility] Pulm & Critical Care Medicine [address] [place] [address] [address] [place] [address] [place] [address] [address] [place] [address] Social History Tobacco Use Types [...] to have MVCAD. He was transferred to [facility] for CTS evaluation. 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 Radiology Results (Last 48 hours) [id number] -- 09/02/2018 14:21 CR Chest 1 Vw [...] on filedocumented in this encounter Care Teams Store Receiver Relationship Specialty Start Date End Date Martinez Canseco MD [address] [place] [address] PCP - General Family Medicine 10/05/22 documented as of this encounter
--- OUTSIDE RECORDS SUMMARY | 2025-01-01 09:01 | XMS_ITS | Encounter Summary ---
Author Organization [employer] ([place], [place], [place], [place]) Address [address] [place] [address] Care Team Providers Care Stamping Die Maker Bench Name Role Phone Martinez Canseco MD Primary Care Provider [phone] Encounter Details Date Type Department Care Team (Late st Contact Info) Description 09/09/2018 Transcribed Document [facility] [place] Family Medicine [address] [place] [address] ProviderIvan MD [address] [place] [address] Social History Tobacco Use Types Packs/Day Years [...] Ivan ProviderMD - 09/09/2018 2:00 AM CDT News Photographer Details Entered On: 09/09/2018 4:56 EDT Performed [...] on filedocumented in this encounter Care Teams Stamping Die Maker Bench Relationship Specialty Start Date End Date Martinez Canseco MD [address] [place] [address] PCP - General Family Medicine 10/05/22 documented as of this encounter
--- OUTSIDE RECORDS SUMMARY | 2025-01-01 09:01 | XMS_ITS | Encounter Summary ---
Author Organization [employer] ([place], [place], [place], [place]) Address [address] [place] [address] Care Team Providers Care Paper Core Machine Operator Name Role Phone Martinez Canseco MD Primary Care Provider [phone] Encounter Details Date Type Department Care Team (Late st Contact Info) Description 09/09/2018 Transcribed Document [facility] [place] [address] [place] [address] ProviderIvan MD [address] [place], [place] [address] Social History Tobacco Use Types Packs/Day Years [...] 09/09/2018 18:46 EDT Electronically signed by Destiny [facility] Conversion Field Director Cerner at 07/05/2022 8:48 PM CDT documented in this encounter Plan of Treatment Not on file documented as of this encounter Visit Diagnoses Not on filedocumented in this encounter Care Teams Paper Core Machine Operator Relationship Specialty Start Date End Date Martinez Canseco MD [address] [place] [address] PCP - General Family Medicine 10/05/22 documented as of this encounter
--- OUTSIDE RECORDS SUMMARY | 2025-01-01 09:01 | XMS_ITS | Encounter Summary ---
Author Organization [employer] ([place], [place], [place], [place]) Address [address] [place] [address] Care Team Providers Care Vinegar Maker Name Role Phone Martinez Canseco MD Primary Care Provider [phone] Encounter Details Date Type Department Care Team (Late st Contact Info) Description 09/10/2018 Transcribed Document [facility] [place] Family Medicine [address] [place] [address] ProviderIvan MD [address] [place], [place] [address] Social History Tobacco Use Types Packs/Day Years [...] On: 09/10/2018 10:11 EDT by MAGDALENO LOYA RN-Complex Care Nurse Final Discharge Planning Discharge Arrangements : Patient Post-Acute Information Patient Name: AUGUSTO PACHECO Gender: Male : 54 Age: 67 Years Curaspan Referral(s): Service: Organization: Business Address: Phone Number[facility] [address], [place], [address] Important Medicare Message Reviewed With : Patient Important Medicare Message Reviewed D/T : 09/10/2018 10:00 EDT Transportation Needs : Family/Friend Discharge Transportation Arrangement Cmt : Dago will transpt to facility Patient/Family Notified of Plan : Yes Patient/Family Notified : Daryl Loza. Discharge To Care Management : SNF with Medicare Certification-03, IRF -Inpatient Rehabilitation Facility-62 MAGDALENO LOYA RN-Complex Care Nurse - 09/10/2018 10:11 EDT Final Narrative Note Final Narrative Note : CM Spoke w/Zahra @ [facility] re: D/C and Diet needs - pt is on Cardiac Diet and Nutritional note was fax'd to her. CM met w/helena @ [facility]. pt is agreeable w/D/C to [facility] and signed IM and choice form - placed on chart. - poss D/C 09/11, Dago will transpt. MAGDALENO LOYA RN-Complex Care Nurse - 09/10/2018 10:11 EDT Electronically signed by Destiny [facility] Conversion Coke Oven Patcher Cerner at 07/05/2022 8:47 PM CDT documented in this encounter Plan of Treatment Not on file documented as of this encounter Visit Diagnoses Not on filedocumented in this encounter Care Teams Vinegar Maker Relationship Specialty Start Date End Date Martinez Canseco MD [address] [place] [address] PCP - General Family Medicine 10/05/22 documented as of this encounter
--- OUTSIDE RECORDS SUMMARY | 2025-01-01 09:01 | XMS_ITS | Encounter Summary ---
Author Organization [employer] ([place], [place], [place], [place]) Address [address] [place] [address] Care Team Providers Care Clip Loading Machine Feeder Name Role Phone Martinez Canseco MD Primary Care Provider [phone] Encounter Details Date Type Department Care Team (Late st Contact Info) Description 09/06/2018 Transcribed Document [facility] [place] [address] [place] [address] ProviderIvan MD [address] [place], [place] [address] Social History Tobacco Use Types Packs/Day Years [...] : 09/05/2018 00:00 Atherosclerotic heart disease of [place] coronary artery without angina pectoris 09/05/2018 00:00 [...] OLIVER WOO OTR/Goran - 09/07/2018 12:21 EDT Technical Solutions Consultant Goals, OT Grooming LTG Grid Goal #1 [...] the text rendition version of the form. [place] OT Charges OT Eval Moderate Complexity : 1 OLIVER WOO OTR/Goran - 09/07/2018 12:21 EDT Electronically signed by Destiny [facility] Conversion Workers' Compensation Commissioner Cerner at 07/05/2022 8:28 PM CDT documented in this encounter Plan of Treatment Not on file documented as of this encounter Visit Diagnoses Not on filedocumented in this encounter Care Teams Clip Loading Machine Feeder Relationship Specialty Start Date End Date Martinez Canseco MD [address] [place] [address] PCP - General Family Medicine 10/05/22 documented as of this encounter
--- OUTSIDE RECORDS SUMMARY | 2025-01-01 09:01 | XMS_ITS | Encounter Summary ---
Author Organization [employer] ([place], [place], [place], [place]) Address [address] [place] [address] Care Team Providers Care Superintendent Drivers Name Role Phone Martinez Canseco MD Primary Care Provider [phone] Encounter Details Date Type Department Care Team (Late st Contact Info) Description 09/09/2018 Transcribed Document [facility] [place] [address] [place] [address] ProviderIvan MD [address] [place], [place] [address] Social History Tobacco Use Types Packs/Day Years [...] Bed scale Routine Weight Entry Format : Haven Routine Weight, Pounds : 219 lb Routine Weight, Ounces : 4 oz Routine Weight Calculation : 99.66 kg Height Source : Stated Height Entry Format : Haven Height, Feet : 6 ft Height, Inches : 1 Inch Clinical Height : 185.42 cm Body Surface Area (BSA), Routine : 2.24 m2 Body Mass Index (BMI), Routine : 28.99 kg/m2 [facility] - 09/09/2018 4:21 EDT Electronically signed by [facility] Conversion Rope Cutter Cerner at 07/05/2022 8:40 PM CDT documented in this encounter Plan of Treatment Not on file documented as of this encounter Visit Diagnoses Not on filedocumented in this encounter Care Teams Superintendent Drivers Relationship Specialty Start Date End Date Martinez Canseco MD [address] [place] [address] PCP - General Family Medicine 10/05/22 documented as of this encounter
--- OUTSIDE RECORDS SUMMARY | 2025-01-01 09:01 | XMS_ITS | Encounter Summary ---
Author Organization [employer] ([place], [place], [place], [place]) Address [address] [place] [address] Care Team Providers Care Conveyor Feeder Offbearer Name Role Phone Martinez Canseco MD Primary Care Provider [phone] Encounter Details Date Type Department Care Team (Late st Contact Info) Description 09/10/2018 Transcribed Document [facility] [place] Family Medicine [address] [place] [address] ProviderIvan MD [address] [place], [place] [address] Social History Tobacco Use Types Packs/Day Years [...] on filedocumented in this encounter Care Teams Conveyor Feeder Offbearer Relationship Specialty Start Date End Date Martinez Canseco MD [address] [place] [address] PCP - General Family Medicine 10/05/22 documented as of this encounter
--- OUTSIDE RECORDS SUMMARY | 2025-01-01 09:01 | XMS_ITS | Encounter Summary ---
Author Organization [employer] ([place], [place], [place], [place]) Address [address] [address] Care Team Providers Care Asbestos Cement Sheet Supervisor Name Role Phone Martinez Canseco MD Primary Care Provider [phone] Encounter Details Date Type Department Care Team (Late st Contact Info) Description 09/11/2018 Transcribed Document [facility] [place] Medicine [address] [place] [address] ProviderIvan MD [address] [place], [place] [address] Social History Tobacco Use Types Packs/Day Years [...] and emphysematous lungs; CAD (coronary artery disease), [place] coronary artery Author: LEANDER WHEELER PA Basic [...] Non-distended, Normal bowel sounds. Integumentary: Warm, Dry, [place], Aquacel dressing is C/D/I. Neurologic: Alert, Oriented, No focal deficits. Psychiatric: Mood and affect: Calm. Review / Management Results review: SEP 11 04:35 146 106 H 31 / H 116 3.6 H 37 0.90 \ SEP 11 04:35 \ L 10.1 / H 9.9 327 / L 30.4 \. Radiology results Radiology Results (Last 48 hours) [id number] -- 09/02/2018 14:21 CR Chest 1 Vw [...] section axial CT with IV contrast supplemented [id number] MIP images. FINDINGS: Pulmonary vessels enhance in [...] tolerated 09/08: POD # 4 Transfer to [facility] 09/09: POD #5 Nausea improving Hypotension - hold BB and lisinopril Cr worse today 1.2 (from0.9) - suspected hypoperfusion 09/10: POD # 6 Nausea better today, still decreased appetite Family would like discharge to rehab to [facility] - precert initiated Cr improved today [...] Pre-Op Diagnosis, Medical. CAD (coronary artery disease), [place] coronary artery - Admitting, Medical. CAD (coronary artery disease), [place] coronary artery - Discharge, Medical. Electronically signed by Interface, [facility] Conversion Rivet Hole Puncher Cerner at 07/05/2022 8:34 PM CDT documented in this encounter Plan of Treatment Not on file documented as of this encounter Visit Diagnoses Not on filedocumented in this encounter Care Teams Asbestos Cement Sheet Supervisor Relationship Specialty Start Date End Date Martinez Canseco MD [address] [place] [address] PCP - General Family Medicine 10/05/22 documented as of this encounter
--- OUTSIDE RECORDS SUMMARY | 2025-01-01 09:01 | XMS_ITS | Encounter Summary ---
Author Organization [employer] ([place], [place], [place], [place]) Address [address] [place] [address] Care Team Providers Care Associate Product Manager Name Role Phone Martinez Canseco MD Primary Care Provider [phone] Encounter Details Date Type Department Care Team (Late st Contact Info) Description 09/11/2018 Transcribed Document [facility] [place] [address] [place] [address] ProviderIvan MD [address] [place], [place] [address] Social History Tobacco Use Types Packs/Day Years [...] On: 09/11/2018 16:38 EDT by LEANDER FAUSTIN, Karla-Market Sales Manager ED Care Management Progress Note Discharge Arrangements : Patient Post-Acute Information Patient Name: AUGUSTO PACHECO Gender: Male : 54 Age: 67 Years Curaspan Referral(s): Service: Organization: Business Address: Phone Number: Acute Rehab [facility] [address] , [place], [address] Discharge Options Discussed with Patient : DME, Home Health, Short term rehabilitation Barriers to Discharge Identified : Clinical Condition of Patient Barriers to Discharge Unresolved : Clinical Condition of Patient Patient Offered Choice/Affiliations Explained : Yes Were Referrals Sent to Post Acute Providers : Yes LEANDER FAUSTIN, Rn-Market Sales Manager ED - 09/11/2018 16:38 EDT Narrative Progress Note Narrative Progress Note : Bronch with Dr. Grimes today. POD #7 MVR and CABG x2. Pt is on high flow NC 12L post procedure. HR 118. Per CTS note, pt will likely be ready for d/c 24-48hrs. Spoke with Elyssa and Echo at [facility] p [phone] f [phone] who are following for admission. Updates sent to facility via [employer]. LEANDER FAUSTIN, Rn-Market Sales Manager ED - 09/11/2018 16:38 EDT documented in this encounter Plan of Treatment Not on file documented as of this encounter Visit Diagnoses Not on filedocumented in this encounter Care Teams Associate Product Manager Relationship Specialty Start Date End Date Martinez Canseco MD [address] [place] [address] PCP - General Family Medicine 10/05/22 documented as of this encounter
--- OUTSIDE RECORDS SUMMARY | 2025-01-01 09:01 | XMS_ITS | Encounter Summary ---
Author Organization [employer] ([place], [place], [place], [place]) Address [address] [place] [address] Care Team Providers Care Liquid Yeast Supervisor Name Role Phone Martinez Canseco MD Primary Care Provider [phone] Encounter Details Date Type Department Care Team (Late st Contact Info) Description 09/10/2018 Transcribed Document [facility] [place] [address] [place] [address] ProviderIvan MD [address] [place], [place] [address] Social History Tobacco Use Types Packs/Day Years [...] On: 09/10/2018 15:36 EDT by MAGDALENO LOYA RN-Cigarette Machines Mechanic Final Discharge Planning Discharge Arrangements : Patient Post-Acute Information Patient Name: AUGUSTO PACHECO Gender: Male : 54 Age: 67 Years Curaspan Referral(s): Service: Organization: Business Address: Phone Number[facility] [address], [place], [address] Important Medicare Message Reviewed With : Patient Important Medicare Message Reviewed D/T : 09/10/2018 10:00 EDT Transportation Needs : Family/Friend Discharge Transportation Arrangement Cmt : Dago will transpt to facility Patient/Family Notified of Plan : Yes Patient/Family Notified : MAGDALENO Disla, RN-Cigarette Machines Mechanic - 09/10/2018 15:36 EDT Final Narrative Note Final Narrative Note : Rehabilitation: [facility] call Elyssa [phone] and [phone] office Nurse can Call report to [phone] Discharge Summary: fax to [phone] Transportation: Brother will transpt MAGDALENO LOYA RN-Cigarette Machines Mechanic - 09/10/2018 15:36 EDT Electronically signed by Destiny [facility] Conversion Deckhand Oyster Dredge Cerner at 07/05/2022 8:36 PM CDT documented in this encounter Plan of Treatment Not on file documented as of this encounter Visit Diagnoses Not on filedocumented in this encounter Care Teams Liquid Yeast Supervisor Relationship Specialty Start Date End Date Martinez Canseco MD [address] [place] [address] PCP - General Family Medicine 10/05/22 documented as of this encounter
--- OUTSIDE RECORDS SUMMARY | 2025-01-01 09:01 | XMS_ITS | Encounter Summary ---
Author Organization [employer] ([place], [place], [place], [place]) Address [address] [place] [address] Care Team Providers Care Credit Checker Name Role Phone Martinez Canseco MD Primary Care Provider [phone] Encounter Details Date Type Department Care Team (Late st Contact Info) Description 09/06/2018 Transcribed Document [facility] Family Medicine [address] [place] [address] ProviderIvan MD [address] [place], [place] [address] Social History Tobacco Use Types Packs/Day Years [...] On: 09/06/2018 14:38 EDT by JARET BAUM Rn-Zyglo TechnicianCrm Manager Progress Note Discharge Arrangements : Patient Post-Acute Information Patient Name: AUGUSTO PACHECO Gender: Male : 54 Age: 67 Years No Post-Acute Placement(s) Listed No Post-Acute Service(s) Listed No [place] Referral(s) Listed Discharge Options Discussed with Patient : DME, Home Health Does the Patient have a Floor to SNF Benefit? : Yes Is the Patient Meeting Medical Necessity : Yes JARET BAUM, Rn-Zyglo Technician - 09/06/2018 14:38 EDT Narrative Progress Note Narrative Progress Note : Day 4 - Confirmed with patient he is willing to participate with OP Cardiac Rehab - choiced [facility]. Patient is willing to consider STR at [facility] in [place], [place] if recommended by PT/OT. JARET BAMU, Rn-Zyglo Technician - 09/06/2018 14:38 EDT Electronically signed by Destiny [facility] Conversion Underwriter Mortgage Loan Cerner at 07/05/2022 8:33 PM CDT documented in this encounter Plan of Treatment Not on file documented as of this encounter Visit Diagnoses Not on filedocumented in this encounter Care Teams Credit Checker Relationship Specialty Start Date End Date Martinez Canseco MD [address] [place] [address] PCP - General Family Medicine 10/05/22 documented as of this encounter
--- OUTSIDE RECORDS SUMMARY | 2025-01-01 09:01 | XMS_ITS | Encounter Summary ---
Author Organization [employer] ([place], [place], [place], [place]) Address [address] [place] [address] Care Team Providers Care Diesel Truck Mechanic Name Role Phone Martinez Canseco MD Primary Care Provider [phone] Encounter Details Date Type Department Care Team (Late st Contact Info) Description 09/10/2018 Transcribed Document [facility] [place] Family Medicine [address] [place] [address] ProviderIvan MD [address], [place] [address] Social History Tobacco Use Types Packs/Day Years Used Date Smoking Tobacco: Never Assessed Sex and Gender Information Value Date Recorded Sex Assigned at Male 09/13/2021 8:33 PM CDT Legal Sex Male 8:33 PM CDT Gender Identity Male 09/13/2021 8:33 PM CDT Sexual Orientation Not on file documented as of this encounter Miscellaneous Notes * Cerner Conversion Note - Ivan Nnio MD - 09/10/2018 10:08 AM CDT On Going Discharge Planning Entered On: 09/10/2018 10:11 EDT Performed On: 09/10/2018 10:08 EDT by MAGDALENO LOYA RN-Stave Machine TenderSystems Software Manager Progress Note Discharge Arrangements : Patient Post-Acute Information Patient Name: AUGUSTO PACHECO Gender: Male : 54 Age: 67 Years Curaspan Referral(s): Service: Organization: Business Address: Phone Number: Acute Rehab [facility] [place] [address], [place], [address] Discharge Options Discussed with Patient : DME, Home Health, Short term rehabilitation Barriers to Discharge Identified : Clinical Condition of Patient Designation of Choice Signed : Yes Patient Offered Choice/Affiliations Explained : Yes Does the Patient have a Floor to SNF Benefit? : Yes Discharge Plan Comment : D/C to [facility]/Rehab 09/11 Bro will transpt MAGDALENO LOYA RN-Stave Machine Tender - 09/10/2018 10:08 EDT Narrative Progress Note Narrative Progress Note : CM Spoke w/Zahra @ [facility] re: D/C and Diet needs - pt is on Cardiac Diet and Nutritional note was fax'd to her. CM met w/helena @ [facility]. pt is agreeable w/D/C to [facility] and signed IM and choice form - placed on chart. - poss D/C 09/11, Dago will transpt. MAGDALENO LOYA RN-Stave Machine Tender - 09/10/2018 10:08 EDT Electronically signed by Destiny [facility] Conversion Warehouse Helper Cerner at 07/05/2022 8:47 PM CDT documented in this encounter Plan of Treatment Not on file documented as of this encounter Visit Diagnoses Not on filedocumented in this encounter Care Teams Diesel Truck Mechanic Relationship Specialty Start Date End Date Martinez Canseco MD [address] [place] [address] PCP - General Family Medicine 10/05/22 documented as of this encounter
--- OUTSIDE RECORDS SUMMARY | 2025-01-01 09:01 | XMS_ITS | Encounter Summary ---
Author Organization [employer] ([place], [place], [place], [place]) Address [address] [place] [address] Care Team Providers Care Medical Laboratory Technologist Name Role Phone Martinez Canseco MD Primary Care Provider [phone] Encounter Details Date Type Department Care Team (Late st Contact Info) Description 09/10/2018 Transcribed Document [facility] Family Medicine [address] [place] [address] ProviderIvan MD [address] [place], [place] [address] Social History Tobacco Use Types Packs/Day Years [...] filedocumented in this encounter Care Teams Medical Laboratory Technologist Relationship Specialty Start Date End Date Martinez Canseco MD [address] [place] [address] PCP - General Family Medicine 10/05/22 documented as of this encounter
--- OUTSIDE RECORDS SUMMARY | 2025-01-01 09:01 | XMS_ITS | Encounter Summary ---
Author Organization [employer] ([place], [place], [place], [place]) Address [address] [place] [address] Care Team Providers Care Pear Picker Name Role Phone Martinez Canseco MD Primary Care Provider [phone] Encounter Details Date Type Department Care Team (Late st Contact Info) Description 09/06/2018 Transcribed Document [facility] [place] [address] [place] [address] ProviderIvan MD [address] [place], [place] [address] Social History Tobacco Use Types Packs/Day Years [...] Ivan ProviderMD - 09/06/2018 2:00 AM CDT Manager Primary Care Details Entered On: 09/06/2018 1:45 EDT Performed [...] on filedocumented in this encounter Care Teams Pear Picker Relationship Specialty Start Date End Date Martinez Canseco MD [address] [place] [address] PCP - General Family Medicine 10/05/22 documented as of this encounter
--- OUTSIDE RECORDS SUMMARY | 2025-01-01 09:01 | XMS_ITS | Encounter Summary ---
Author Organization [email or web address] ([place], [place], [place], [place]) Address [address] [place] [address] Care Team Providers Care Timber Grader Name Role Phone Martinez Canseco MD Primary Care Provider [phone] Encounter Details Date Type Department Care Team (Late st Contact Info) Description 09/13/2018 Transcribed Document [facility] [place] [address] [place] [address] ProviderIvan MD [address] [place], [place] [address] Social History Tobacco Use Types Packs/Day Years [...] on filedocumented in this encounter Care Teams Timber Grader Relationship Specialty Start Date End Date Martinez Canseco MD [address] [place] [address] PCP - General Family Medicine 10/05/22 documented as of this encounter
--- OUTSIDE RECORDS SUMMARY | 2025-01-01 09:01 | XMS_ITS | Encounter Summary ---
Author Organization [employer] ([place], [place], [place], [place]) Address [address] [place] [address] Care Team Providers Care Teacher Lip Reading Name Role Phone Martinez Canseco MD Primary Care Provider [phone] Encounter Details Date Type Department Care Team (Late st Contact Info) Description 09/10/2018 Transcribed Document [facility] Pulm & Critical Care Medicine [address] [place] [address] [address] [place] [address] [place] [address] [address] [place] [address] Social History Tobacco Use Types [...] At risk for sleep apnea / IMO 37001859 / Confirmed Cardiomegaly / SNOMED CT 16919711 / Confirmed 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 CAD (coronary artery disease) / SNOMED CT 48022949 / Confirmed Pulmonary fibrosis / SNOMED CT 59199079 / Confirmed History of colostomy reversal / SNOMED CT 060010185 / Confirmed History of broken nose / SNOMED CT 6076074542 / Confirmed H/O right heart catheterization / SNOMED CT 4739165226 / Confirmed H/O hernia repair / SNOMED CT 6689291605 / Confirmed History of tonsillectomy / SNOMED CT 8718334638 / Confirmed COPD, moderate / SNOMED CT 499938169 / Confirmed Pneumonia / SNOMED CT 847255971 / Confirmed Smoker / SNOMED CT 731523437 / Confirmed, Active Problems (13) At risk [...] 31 (CAYETANO 24) 31 (CAYETANO 23) 29 (CYAETANO 22) BUN H 43 (CAYETANO 25) H [...] 35.4 HI 09/10/2018 15:52 BE Art 11.7 DE 09/10/2018 15:52 sO2 Art 89.7 LOW 09/10/2018 [...] 30.1 \ Radiology Results (Last 48 hours) [id number] -- 09/02/2018 14:21 CR Chest 1 Vw [...] section axial CT with IV contrast supplemented [id number] MIP images. FINDINGS: Pulmonary vessels enhance in [...] on filedocumented in this encounter Care Teams Teacher Lip Reading Relationship Specialty Start Date End Date Martinez Canseco MD [address] [place] [address] PCP - General Family Medicine 10/05/22 documented as of this encounter
--- OUTSIDE RECORDS SUMMARY | 2025-01-01 09:01 | XMS_ITS | Encounter Summary ---
Author Organization [employer] ([place], [place], [place], [place]) Address [address] [facility] [place] [address] Care Team Providers Care Geopolitics Teacher Name Role Phone Martinez Canseco MD Primary Care Provider [phone] Encounter Details Date Type Department Care Team (Late st Contact Info) Description 09/12/2018 Transcribed Document [facility] Pulm & Critical Care Medicine [address] [place] [address] [address] [place] [address] [place] [address] [address] [place] [address] Social History Tobacco Use Types [...] to have MVCAD. He was transferred to [facility] for CTS evaluation. On 09/04, [...] At risk for sleep apnea / IMO 27784276 / Confirmed Cardiomegaly / SNOMED CT 54900649 / Confirmed Steroid-dependent COPD / SNOMED CT 15991608 / Confirmed CAD (coronary artery disease) / SNOMED CT 92862662 / Confirmed Pulmonary fibrosis / SNOMED CT 37545971 / Confirmed History of colostomy reversal / SNOMED CT 680815134 / Confirmed History of broken nose / SNOMED CT 6234485404 / Confirmed H/O right heart catheterization / SNOMED CT 9705310946 / Confirmed H/O hernia repair / SNOMED CT 2409223509 / Confirmed History of tonsillectomy / SNOMED CT 8193075999 / Confirmed COPD, moderate / SNOMED CT 101967686 / Confirmed Pneumonia / SNOMED CT 454192725 / Confirmed Smoker / SNOMED CT 109985115 / Confirmed, Active Problems (13) At risk [...] 17) . Radiology Results (Last 48 hours) [id number] -- 09/02/2018 14:21 CTA Chest PE Protocol (09/10/2018 17:15) Result: CT ANGIOGRAM THORAXHISTORY: Hypoxia. Shortness of breath.TECHNIQUE: Thin section axial CT with IV contrast supplemented [id number] MIP images. FINDINGS: Pulmonary vessels enhance in [...] on filedocumented in this encounter Care Teams Geopolitics Teacher Relationship Specialty Start Date End Date Martinez Canseco MD [address] [place] [address] PCP - General Family Medicine 10/05/22 documented as of this encounter
--- OUTSIDE RECORDS SUMMARY | 2025-01-01 09:01 | XMS_ITS | Encounter Summary ---
Author Organization [employer] ([place], [place], [place], [place]) Address [address] [place] [address] Care Team Providers Care Needle Board Repairer Name Role Phone Martinez Canseco MD Primary Care Provider [phone] Encounter Details Date Type Department Care Team (Late st Contact Info) Description 09/06/2018 Transcribed Document [facility] [place] [address] [place] [address] ProviderIvan MD [address] [place] [address] Social History Tobacco Use Types [...] Source : Stated Height Entry Format : [place] Height, Feet : 6 ft Height, Inches : 1 Inch Clinical Height : 185.42 cm Body Surface Area (BSA), Routine : 2.24 m2 Body Mass Index (BMI), Routine : 29.14 kg/m2 Meenakshi Gu RN - 09/06/2018 4:48 EDT documented in this encounter Plan of Treatment Not on file documented as of this encounter Visit Diagnoses Not on filedocumented in this encounter Care Teams Needle Board Repairer Relationship Specialty Start Date End Date Martinez Canseco MD [address] [place] [address] PCP - General Family Medicine 10/05/22 documented as of this encounter
--- OUTSIDE RECORDS SUMMARY | 2025-01-01 09:01 | XMS_ITS | Encounter Summary ---
Author Organization [employer] ([place], [place], [place], [place]) Address [address] [place] [address] Care Team Providers Care Plastics Supervisor Name Role Phone Martinez Canseco MD Primary Care Provider [phone] Encounter Details Date Type Department Care Team (Late st Contact Info) Description 09/10/2018 Transcribed Document [facility] [place] [address] [place] [address] ProviderIvan MD [address] [place], [place] [address] Social History Tobacco Use Types Packs/Day Years [...] Bed scale Routine Weight Entry Format : Sultan Routine Weight, Pounds : 226 lb Routine Weight, Ounces : 6 oz Routine Weight Calculation : 102.9 kg Height Source : Stated Height Entry Format : Sultan Height, Feet : 6 ft Height, Inches : 1 Inch Clinical Height : 185.42 cm Body Surface Area (BSA), Routine : 2.27 m2 Body Mass Index (BMI), Routine : 29.93 kg/m2 Blaine Miranda Care Asst-Health [facility] - 09/10/2018 4:17 EDT Electronically signed by [facility] Conversion Loom Repairer Cerner at 07/05/2022 8:49 PM CDT documented in this encounter Plan of Treatment Not on file documented as of this encounter Visit Diagnoses Not on filedocumented in this encounter Care Teams Plastics Supervisor Relationship Specialty Start Date End Date Martinez Canseco MD [address] [place] [address] PCP - General Family Medicine 10/05/22 documented as of this encounter
--- OUTSIDE RECORDS SUMMARY | 2025-01-01 09:01 | XMS_ITS | Encounter Summary ---
Author Organization [employer] ([place], [place], [place], [place]) Address [address] [place] [address] Care Team Providers Care Auto Body Technician Name Role Phone Martinez Canseco MD Primary Care Provider [phone] Encounter Details Date Type Department Care Team (Late st Contact Info) Description 09/12/2018 Transcribed Document [facility] [place] [address] [place] [address] ProviderIvan MD [address] [place], [place] [address] Social History Tobacco Use Types Packs/Day Years [...] Ivan ProviderMD - 09/12/2018 2:00 AM CDT Communications Agent Details Entered On: 09/12/2018 1:10 EDT Performed [...] 09/12/2018 1:09 EDT Electronically signed by Destiny [facility] Conversion See Supervisor Cerner at 07/05/2022 8:37 PM CDT documented in this encounter Plan of Treatment Not on file documented as of this encounter Visit Diagnoses Not on filedocumented in this encounter Care Teams Auto Body Technician Relationship Specialty Start Date End Date Martinez Canseco MD [address] [place] [address] PCP - General Family Medicine 10/05/22 documented as of this encounter
--- OUTSIDE RECORDS SUMMARY | 2025-01-01 09:01 | XMS_ITS | Encounter Summary ---
Author Organization [employer] ([place], [place], [place], [place]) Address [address] [place] [address] Care Team Providers Care Clay Temperer Name Role Phone Martinez Canseco MD Primary Care Provider [phone] Encounter Details Date Type Department Care Team (Late st Contact Info) Description 09/13/2018 Transcribed Document [facility] [place] [address] [place] [address] ProviderIvan MD [address] [place], [place] [address] Social History Tobacco Use Types Packs/Day Years [...] On: 09/13/2018 9:47 EDT by BIRGIT IQBAL Jewelry Dipper Care Management Progress Note Discharge Arrangements : Patient Post-Acute Information Patient Name: AUGUSTO PACHECO Gender: Male : 54 Age: 67 Years Curaspan Referral(s): Service: Organization: Business Address: Phone Number: [facility] [address], [place], [address] Discharge Options Discussed with Patient [...] to SNF Benefit? : Yes BIRGIT IQBAL, Jewelry Dipper - 09/13/2018 9:47 EDT Electronically signed by Destiny [facility] Conversion Sleep Lab Technician Cerner at 07/05/2022 8:26 PM CDT documented in this encounter Plan of Treatment Not on file documented as of this encounter Visit Diagnoses Not on filedocumented in this encounter Care Teams Clay Temperer Relationship Specialty Start Date End Date Martinez Canseco MD [address] [place] [address] PCP - General Family Medicine 10/05/22 documented as of this encounter
== END 2024-12-30 23:59 ==
LOC: LAB.DROPOF 01-01 08:54
PROVIDERS: PCP Nurse Practitioner; Visit Provider Nurse Practitioner
DX: I13.0 Hypertensive heart and chronic kidney disease with heart failure and stage 1 through stage 4 chronic kidney disease, or unspecified chronic kidney disease (principal); N18.9 Chronic kidney disease, unspecified; I50.9 Heart failure, unspecified
CPT/HCPCS: 80048